=== PATIENT | male | born 1950 | race African-American/Black ===

== ENCOUNTER 2017-04-18 22:48 | Inpatient (IN) | payer MEDICAID, OTHER ==
[~2017-04-18] VITALS: Ht 177.8 cm; Wt 87.8 kg
[2017-04-19] VITALS (17 sets, daily range): BP systolic 93–131; BP diastolic 58–87
[2017-04-19] MEDS ORDERED: HEPARIN for IV BOLUS 10,000 UNIT/10 ML VIAL. IV PRN (01:15)
[2017-04-19] MEDS: HEPARIN 25,000UTS/500ML PREMIX 500 ML IV PRN ×2 (02:09→12:43)
[2017-04-19] MEDS ORDERED: TAMS0.4C97 PO (02:23)
[2017-04-19] MEDS ORDERED: ATOR40TA PO (02:23)
[2017-04-19] MEDS ORDERED: ACET325T9 PO (02:23)
[2017-04-19] MEDS ORDERED: ALBU2.5V5 NEB (02:23)
[2017-04-19] MEDS ORDERED: ALBUTEROL SULFATE 2.5 MG/3 ML NEBU. NEB PRN (02:30)
[2017-04-19] MEDS ORDERED: ACETAMINOPHEN 325 MG TABLET. PO PRN (02:30)
[2017-04-19] MEDS ORDERED: ONDANSETRON PF 4 MG/2 ML VIAL. IV PRN (03:15)
[2017-04-19 09:01] LABS: BASO % 0 % (0-3); EOS % 0 % (0-3); HEMATOCRIT 36.9 % (39.0-53.0); HEMOGLOBIN 12.1 g/dL (13.0-17.5); LYMPH # 1.3 x10^3/uL (1.0-4.8); LYMPH % 8 % (24-48); MEAN CORPUSCULAR HEMOGLOBIN 27 pg (25-35); MEAN CORPUSCULAR HGB CONC 33 g/dL (31-37); MEAN CORPUSCULAR VOLUME 82 fL (79-100); MONO % 7 % (0-9); NEUT % 85 % (31-73); PLATELET COUNT 138 x10^3/uL (140-400); RED CELL DISTRIBUTION WIDTH 14.5 % (11.5-14.5); WHITE BLOOD COUNT 16.2 x10^3/uL (4.0-11.0)
[2017-04-19 09:43] LABS: ANISOCYTOSIS SLIGHT; PLT ESTIMATE ADEQUATE (ADEQUATE); POLYCHROMASIA SLIGHT
[2017-04-19 09:44] LABS: POIKILOCYTOSIS SLIGHT
[2017-04-19] MEDS ORDERED: FUROSEMIDE 40 MG/4 ML VIAL. IVP ONE ×2 (10:00→15:45)
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
--- NOTE | 2017-04-19 10:16 | PDOC1 ---
History and Physical Date of Admission Date of Admission DATE: 04/19/17 TIME: 10:05 Identification/Chief Complaint Chief Complaint SOA Problems: Source Source: Caregiver, Chart review, Patient History of Present Illness History of Present Illness 66 y.o AA male, otherwise previously healthy went to [place] yesterday bec of acute SOA 1-2 weeks, Claims usually can walk 2-3 miles, no probs, now short distances and gets SOA, NO real CP, Also major issues with difficulty initiating a void, seen OIL TANK CAR CLEANER as OP, started on FLomax 0.8. NO weight loss, but admits to weight gain actually. NO hx Prostate CA Only 100cc overnight, still minimal UO. CReat and K ok. HAd difficulty inserting parker in [place], then some blood clots after, Pt does not want to go home with parker CR scan done at [facility], moderate pancreatic stranding, diverticulosis, chronic inflammation urinary bladder wall and bilateral small pleural effusion. SOme small incidental liver nodule too,. PLanned for cardiac cath EKG, some concerning changes, Trops 0.2 peak, then 0.1 BNP 8K Dw cards and Rn ABd big but not distended - remote etoh hx- stopped 20 yrs ago -CT abd as above (chart from [place] reviewed) Past Medical History Cardiovascular: Hyperlipidemia Pulmonary: Bronchitis Renal/: Benign prostatic enlarg. Past Surgical History Past Surgical History: No pertinent history Family History Family History: No Significant Social History Smoke: No ALCOHOL: other (quit 20 yrs ago) Drugs: None Current Medications Current Medications Current Medications Heparin Sodium/ Dextrose 500 ml @ 0 mls/hr CONT PRN IV SEE I/O RECORD Last administered on 04/19/17t 02:09; Start 04/19/17 at 01:15 Heparin Sodium (Porcine) (Heparin Sodium) 2,300 unit PRN Q6HRS PRN IV FOR UFH LEVEL LESS THAN 0.2; Start 04/19/17 at 01:15 Morphine Sulfate 2 mg PRN Q2HR PRN IV PAIN; Start 04/19/17 at 02:15 Acetaminophen (Tylenol) 650 mg PRN Q6HRS PRN PO ARTHRITIS; Start 04/19/17 at 02 :30; Stop 04/19/17 at 08:07; Status DC Albuterol Sulfate (Ventolin Neb Soln) 2.5 mg PRN QID PRN NEB ASTHMA; Start at 02:30 Atorvastatin Calcium (Lipitor) 40 mg QHS PO ; Start 04/19/17 at 21:00 Tamsulosin HCl (Flomax) 0.8 mg DAILY PO ; Start 04/19/17 at 09:00 Ondansetron HCl (Zofran) 4 mg PRN Q6HRS PRN IV NAUSEA/VOMITING; Start 04/19/17 at 03:15 Acetaminophen (Tylenol) 500 mg PRN Q6HRS PRN PO MILD PAIN / TEMP; Start at 08:00 Furosemide (Lasix) 40 mg 1X ONCE IVP ; Start 04/19/17 at 10:00; Stop 04/19/17 at 10:01; Status UNV Active Scripts Active Reported Albuterol Sulfate Neb Soln (Albuterol Sulfate) 2.5 Mg/3 Ml Vial.neb 2.5 Mg NEB QID PRN Flomax (Tamsulosin Hcl) 0.4 Mg Cap.er.24h 2 Cap PO DAILY Lipitor (Atorvastatin Calcium) 40 Mg Tablet 1 Tab PO QHS Tylenol (Acetaminophen) 325 Mg Tablet 1-2 Tab PO Q6HRS PRN Allergies Allergies: Coded Allergies: aspirin (Verified Allergy, Mild, Nausea, 04/19/17) ROS General: No: Chills, Night Sweats, Fatigue, Malaise, Appetite, Other PSYCHOLOGICAL ROS: No: Anxiety, Behavioral Disorder, Concentration difficultie , Decreased libido, Depression, Disorientation, Hallucinations, Hostility, Irritablity, Memory difficulties, Mood Swings, Obsessive thoughts, Physical abuse, Sexual abuse, Sleep disturbances, Suicidal ideation, Other Eyes: No Blurry vision, No Decreased vision, No Double vision, No Dry eyes, No Excessive tearing, No Eye Pain, No Itchy Eyes, No Loss of vision, No Photophobia , No Scotomata, No Uses contacts, No Uses glasses, No Other HEENT: No: Heacaches, Visual Changes, Hearing change, Nasal congestion, Nasal discharge, Oral lesions, Sinus pain, Sore Throat, Epistaxis, Sneezing, Snoring, Tinnitus, Vertigo, Vocal changes, Other Hematological and Lymphatic: No: Bleeding Problems, Blood Clots, Blood Transfusions, Brusing, Night Sweats, Pallor, Swollen Lymph Nodes, Other ENDOCRINE: No: Breast Changes, Galactorrhea, Hair Pattern Changes, Hot Flashes , Malaise/lethargy, Mood Swings, Palpitations, Polydipsia/polyuria, Skin Changes , Temperature Intolerance, Unexpected Weight Changes, Other Breast: No New/Changing Breast Lumps, No Nipple changes, No Nipple discharge, No Other Respiratory: YES: Shortness of breath, SOB with excertion Cardiovascular: No Chest Pain, No Palpitations, No Orthopnea, No Paroxysmal Noc. Dyspnea, No Edema, No Lt Headedness, No Other Gastrointestinal: No Nausea, No Vomiting, No Abdominal Pain, No Diarrhea, No Constipation, No Melena, No Hematochezia, No Other Genitourinary: YES Retention Musculoskeletal: No Gait Disturbance, No Joint Pain, No Joint Stiffness, No Joint Swelling, No Muscle Pain, No Muscular Weakness, No Pain In:, No Swelling In:, No Other Neurological: No Behavorial Changes, No Bowel/Bladder ControlChng, No Confusion , No Dizziness, No Gait Disturbance, No Headaches, No Impaired Coord/balance, No Memory Loss, No Numbness/Tingling, No Seizures, No Speech Problems, No Tremors, No Visual Changes, No Weakness, No Other Skin: No Dry Skin, No Eczema, No Hair Changes, No Lumps, No Mole Changes, No Mottling, No Nail Changes, No Pruritus, No Rash, No Skin Lesion Changes, No Other, No Acne Physical Exam General: Alert, Oriented X3, Cooperative, No acute distress HEENT: Atraumatic, PERRLA Lungs: Normal air movement, Other (dec BS bases, no wheezes) Abdomen: Soft, Other (protruberant but no guarding and not distended) Male Genitals Exam: normal genitalia, normal prostate Rectal Exam: not examined, mass PELVIC: Nml ext genitalia Extremities: No clubbing, No cyanosis, No edema, Normal pulses, No tenderness/ swelling Skin: No rashes, No breakdown, No significant lesion Neuro: Normal gait, Normal speech, Strength at 5/5 X4 ext, Normal tone, Sensation intact, Cranial nerves 3-12 NL, Reflexes 2+ Psych/Mental Status: Mental status NL, Mood NL Vitals Vitals Vital Signs Date Time Temp Pulse Resp B/P (MAP) Pulse Ox O2 Delivery O2 Flow Rate FiO2 04/19/17 08:07 97 Nasal Cannula 2.0 04/19/17 07:44 98.6 95 18 100/74 (83) 98.6 Labs Labs Laboratory Tests Test 04/19/17 01:50 04/19/17 08:45 Heparin Anti-Xa Act, Unfractionated 0.75 IU/mL (0.30-0.70) 0.74 IU/mL (0.30-0.70) Magnesium Level 1.8 mg/dL (1.8-2.4) Troponin I Quantitative 0.215 ng/mL (0.000-0.055) 0.139 ng/mL (0.000-0.055) White Blood Count 16.2 x10^3/uL (4.0-11.0) Red Blood Count 4.50 x10^6/uL (4.30-5.70) Hemoglobin 12.1 g/dL (13.0-17.5) Hematocrit 36.9 % (39.0-53.0) Mean Corpuscular Volume 82 fL (79-100) Mean Corpuscular Hemoglobin 27 pg (25-35) Mean Corpuscular Hemoglobin Concent 33 g/dL (31-37) Red Cell Distribution Width 14.5 % (11.5-14.5) Platelet Count 138 x10^3/uL (140-400) Neutrophils (%) (Auto) 85 % (31-73) Lymphocytes (%) (Auto) 8 % (24-48) Monocytes (%) (Auto) 7 % (0-9) Eosinophils (%) (Auto) 0 % (0-3) Basophils (%) (Auto) 0 % (0-3) Neutrophils # (Auto) 13.7 x10^3uL (1.8-7.7) Lymphocytes # (Auto) 1.3 x10^3/uL (1.0-4.8) Monocytes # (Auto) 1.0 x10^3/uL (0.0-1.1) Eosinophils # (Auto) 0.0 x10^3/uL (0.0-0.7) Basophils # (Auto) 0.0 x10^3/uL (0.0-0.2) Segmented Neutrophils % 88 % (35-66) Lymphocytes % 9 % (24-48) Monocytes % 3 % (0-10) Platelet Estimate Adequate (ADEQUATE) Large Platelets Present Polychromasia Slight Poikilocytosis Slight Anisocytosis Slight RC-Odc-K-Type Natriuretic Peptide 8600 pg/mL (0-124) Triglycerides Level 55 mg/dL (0-150) Cholesterol Level 125 mg/dL (0-200) LDL Cholesterol, Calculated 72 mg/dL (0-100) VLDL Cholesterol, Calculated 11 mg/dL (0-40) Non-HDL Cholesterol Calculated 83 mg/dL (0-129) HDL Cholesterol 42 mg/dL (40-60) Cholesterol/HDL Ratio 3.0 Laboratory Tests Test 04/19/17 01:50 04/19/17 08:45 Heparin Anti-Xa Act, Unfractionated 0.75 IU/mL (0.30-0.70) 0.74 IU/mL (0.30-0.70) Magnesium Level 1.8 mg/dL (1.8-2.4) Troponin I Quantitative 0.215 ng/mL (0.000-0.055) 0.139 ng/mL (0.000-0.055) White Blood Count 16.2 x10^3/uL (4.0-11.0) Red Blood Count 4.50 x10^6/uL (4.30-5.70) Hemoglobin 12.1 g/dL (13.0-17.5) Hematocrit 36.9 % (39.0-53.0) Mean Corpuscular Volume 82 fL (79-100) Mean Corpuscular Hemoglobin 27 pg (25-35) Mean Corpuscular Hemoglobin Concent 33 g/dL (31-37) Red Cell Distribution Width 14.5 % (11.5-14.5) Platelet Count 138 x10^3/uL (140-400) Neutrophils (%) (Auto) 85 % (31-73) Lymphocytes (%) (Auto) 8 % (24-48) Monocytes (%) (Auto) 7 % (0-9) Eosinophils (%) (Auto) 0 % (0-3) Basophils (%) (Auto) 0 % (0-3) Neutrophils # (Auto) 13.7 x10^3uL (1.8-7.7) Lymphocytes # (Auto) 1.3 x10^3/uL (1.0-4.8) Monocytes # (Auto) 1.0 x10^3/uL (0.0-1.1) Eosinophils # (Auto) 0.0 x10^3/uL (0.0-0.7) Basophils # (Auto) 0.0 x10^3/uL (0.0-0.2) Segmented Neutrophils % 88 % (35-66) Lymphocytes % 9 % (24-48) Monocytes % 3 % (0-10) Platelet Estimate Adequate (ADEQUATE) Large Platelets Present Polychromasia Slight Poikilocytosis Slight Anisocytosis Slight LR-Ozo-Y-Type Natriuretic Peptide 8600 pg/mL (0-124) Triglycerides Level 55 mg/dL (0-150) Cholesterol Level 125 mg/dL (0-200) LDL Cholesterol, Calculated 72 mg/dL (0-100) VLDL Cholesterol, Calculated 11 mg/dL (0-40) Non-HDL Cholesterol Calculated 83 mg/dL (0-129) HDL Cholesterol 42 mg/dL (40-60) Cholesterol/HDL Ratio 3.0 VTE Prophylaxis Ordered VTE Prophylaxis Devices: Yes VTE Pharmacological Prophylaxi: Yes Assessment/Plan Assessment/Plan 1. Acute onset SOA with EKg changes and trop elevation 2. Bilateral trace pleural effusions 3. Dyslipidemia 4. Incidental subCM liver nodule 5. Remote etoh hx - quit 20 yrs 6. Urinary retention with BPH sxs PLAN: Admit CVC Planned for cardiac cath given EKG changes, Trops -0.2 and acute SOA NPO Bladder scan protocol Insert parker if needed LAsix 40 IV x 1 Wiill consider CXR interval munira AM - CXR reviewed from [place] Can check PSa Consult urology PT/OT TSh pending Dw pt, RN laura and Jamar OIL TANK CAR CLEANER - cards KRISTEL HUETRA MD Apr 19, 2017 10:16
[2017-04-19] MEDS ORDERED: IOHEXOL 300 MG/ML 100ML VIAL. ONE (10:56)
[2017-04-19] MEDS ORDERED: LIDOCAINE 1% Multi-Dose 20 ML VIAL. ONE (10:56)
[2017-04-19] MEDS ORDERED: HEPARIN for ARTERIAL LINE 1,500 ML ONE (10:56)
[2017-04-19] MEDS ORDERED: LIDOCAINE 2% 20 ML VIAL. ONE (10:58)
[2017-04-19] MEDS ORDERED: VERAPAMIL 5 MG/2 ML VIAL. ONE (11:01)
[2017-04-19] MEDS ORDERED: HEPARIN for IV BOLUS 10,000 UNIT/10 ML VIAL. ONE (11:01)
[2017-04-19] MEDS ORDERED: NITROGLYCERIN 200 MCG/2 ML SYRINGE FOR CATH/VASC LAB. ONE (11:01)
[2017-04-19] MEDS ORDERED: fentaNYL PF VIAL 100 MCG/2 ML VIAL ONE (11:02)
[2017-04-19] MEDS ORDERED: MIDAZOLAM HCL/PF 2 MG/2 ML VIAL. ONE (11:02)
[2017-04-19 11:09] LABS: CALCIUM 8.3 mg/dL (8.5-10.1); CREATININE 1.2 mg/dL (0.7-1.3); GFR 72.9
[2017-04-19] MEDS ORDERED: CONTRAST GIVEN MC PRN (11:45)
[2017-04-19] MEDS ORDERED: IOHEXOL 300 MG/ML 100ML VIAL. IART ONE (11:45)
[2017-04-19] MEDS ORDERED: NITROGLYCERIN 200 MCG/2 ML SYRINGE FOR CATH/VASC LAB. IART ONE (11:45)
[2017-04-19] MEDS ORDERED: VERAPAMIL 5 MG/2 ML VIAL. IART ONE (11:45)
[2017-04-19] MEDS ORDERED: fentaNYL PF VIAL 100 MCG/2 ML VIAL IV ONE (11:45)
[2017-04-19] MEDS ORDERED: LIDOCAINE 2% 20 ML VIAL. IJ ONE (11:45)
[2017-04-19] MEDS ORDERED: MIDAZOLAM HCL/PF 2 MG/2 ML VIAL. IV ONE (11:45)
[2017-04-19 12:11] LABS: BILIRUBIN,URINE NEGATIVE (NEG); GLUCOSE,URINE NEGATIVE (NEG); NITRITE,URINE NEGATIVE (NEG); PROTEIN,URINE 30 mg/dL (NEG-TRACE); UROBILINOGEN,URINE 0.2 mg/dL (0.2 mg/dL)
[2017-04-19 12:31] LABS: BACTERIA,URINE FEW /HPF (0-FEW); SQUAMOUS EPITHELIAL CELL,UR FEW /LPF
[2017-04-19] MEDS: TAMSULOSIN 0.4 MG CAP.ER.24H. PO SCH (12:41)
[2017-04-19] MEDS: MILRINONE 20MG/100ML PREMIX 100 ML IV PRN (13:02)
--- NOTE | 2017-04-19 13:42 | CARD ---
APPROVED REPORT Procedure(s) performed: Right transradial approach Left Heart Catheterization, Coronary angiography, Left ventriculography HISTORY The patient is a 66 year-old male with a history of : previous CHF, dyslipidemia. INDICATION The indication(s) include : non-STEMI , jugular vein distension, dyspnea. CASE TECHNIQUE During this case, Fluoroscopy and low osmolar contrast were used for imaging. PROCEDURE NARRATIVE The patient was brought electively to the cardiac catheterization lab. A timeout was performed confi rming the patient's name, date of , procedure, and site of procedure. All necessary personnel w ere wearing the appropriate protective equipment and radiation monitor devices. After explaining the risks and benefits of the procedure and alternatives, informed consent was obtained. (See nursing no jaclyn for medications administered). The right wrist was sterilely prepped and draped in the usual fas hion. The right wrist was infiltrated with 1 mL of 2% lidocaine for subcutaneous anesthesia. A 6 Fr ench Terumo glide sheath was inserted into the right radial artery without difficulty. Right and lef t coronary angiography was performed using a 6Fr TIG 4.0 catheter. Left ventricular end diastolic pr essure was obtained with a pigtail catheter and pullback was performed after left ventriculography. All catheter exchanges and advancements were performed over a guidewire. At case completion the righ t radial sheath was removed and a Terumo radial band was applied with 13 ml of air. The patient tole rated the procedure well and there were no immediate complications. HEMODYNAMICS: LVEDP 48 mm Hg No gradient on LV to aortic pullback. LEFT VENTRICULOGRAM: EF 15% Severe global hypokinesis. No mitral regurgitation. CORONARY ANGIOGRAPHY: LM is a large caliber vessel with a distal 70% stenosis. LAD is a large caliber vessel with a proximal subtotal occlusion. The distal vessel fills via a large epicardial collateral from the LCx and septal collaterals from the RPL/RPDA system. Ramus is a small to caliber vessel with mild diffuse irregularities. LCx is a moderate caliber non-dominant vessel with mild up to 30% disease. OM1 is a moderate to large caliber vessel with mild irregularities of up to 30%. RCA is a large caliber dominant vessel with mild proximal 30%, long diffuse mid to distal 50-70% sten osis. RPDA is a moderate caliber vessels with normal angiographic appearance. Conclusion 1. Severe LV dysfunction. EF 15%. 2. Three vessel coronary artery disease with LM involvement. 3. Severely elevated left ventricular filling pressure. LVEDP 48 mm Hg. Recommendations Admit to ICU. Start Milrinone, Lasix 40mg IVP now. Start Hep gtt. CABG consultation. If felt to be a poor candidate due to severe LV dysfunction, then will plan for PCI on sunday after o ptimization of LV pressures/volume.
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
[2017-04-19 16:05] LABS: HEMATOCRIT 36.4 % (39.0-53.0); HEMOGLOBIN 11.5 g/dL (13.0-17.5); RED BLOOD COUNT 4.34 x10^6/uL (4.30-5.70); RED CELL DISTRIBUTION WIDTH 14.8 % (11.5-14.5); WHITE BLOOD COUNT 13.5 x10^3/uL (4.0-11.0)
[2017-04-19] MEDS: MORPHINE SULFATE 2 MG/ML DISP.SYRIN. IV PRN (16:14)
[2017-04-19] MEDS: ATORVASTATIN CALCIUM 40 MG TABLET. PO SCH (21:11)
[2017-04-20] VITALS (20 sets, daily range): BP systolic 80–128; BP diastolic 52–86
--- NOTE | 2017-04-20 08:12 | CARD ---
APPROVED REPORT EXAM: Two-dimensional and M-mode echocardiogram with Doppler and color Doppler. Other Information Quality : GoodHR: 93bpm Rhythm : Arrhythmia INDICATION Cardiomyopathy 2D DIMENSIONS RVDd3.1 (2.9-3.5cm)Left Atrium(2D)4.1 (1.6-4.0cm) IVSd1.0 (0.7-1.1cm)Aortic Root(2D)2.8 (2.0-3.7cm) LVDd6.8 (3.9-5.9cm)LVOT Diameter2.3 (1.8-2.4cm) PWd1.0 (0.7-1.1cm)LVDs6.2 (2.5-4.0cm) FS (%) 8.4 %SV42.9 ml LVEF(%)18.1 (>50%) Aortic Valve AoV Peak Jaquan.200.5cm/sAoV VTI31.3cm AO Peak GR.16.1mmHgLVOT Peak Jaquan.104.2cm/s AO Mean GR.8mmHgAVA (VMAX)2.10cm2 Mitral Valve MV E Yyonzqpm443.0cm/sMV E Peak Gr.10mmHg MV DECEL [id number] A Bgkzxfln68.7cm/s MV E Mean Gr.4mmHgE/A Ratio3.6 MV A [id number] Pulmonary Valve PV Peak Rknbbgbf02.5cm/s Tricuspid Valve TR P. [id number]/sTR Peak Gr.32mmHg LEFT VENTRICLE The Left Ventricle is moderately dilated. There is normal left ventricular wall thickness. Left ventr icle systolic function is severely impaired. The Ejection Fraction is 15-20%. There is severe global hypokinesis of the left ventricle. Transmitral Doppler flow pattern is Grade IV-fixed restrictive jason stolic dysfunction. No left ventricle thrombus noted on this study. RIGHT VENTRICLE The right ventricle is normal size. There is normal right ventricular wall thickness. Systolic functi on is moderately reduced. ATRIA The left atrium is moderately dilated. The right atrium size is normal. The interatrial septum is int act with no evidence for an atrial septal defect or patent foramen ovale as noted on 2-D or Doppler i maging. AORTIC VALVE The aortic valve is mildly thickened. The aortic valve is trileaflet. Doppler and Color Flow revealed no significant aortic regurgitation. There is no significant aortic valvular stenosis. MITRAL VALVE The mitral valve leaflets are mildly thickened. There is no evidence of mitral valve prolapse. There is no mitral valve stenosis. Doppler and Color Flow revealed mild mitral regurgitation. TRICUSPID VALVE Doppler and Color Flow revealed mild tricuspid regurgitation.The pulmonary artery systolic pressure i s estimated at 40 mmHg. There is mild pulmonary hypertension. PULMONIC VALVE Doppler and Color Flow revealed mild pulmonic valvular regurgitation. There is no pulmonic valvular s tenosis. GREAT VESSELS The aortic root is normal in size. The ascending aorta is normal in size. The IVC is normal in size a nd collapses <50% with inspiration. PERICARDIAL EFFUSION There is no evidence of significant pericardial effusion. Critical Notification Critical Value: No <Conclusion> Left ventricle systolic function is severely impaired. The Ejection Fraction is 15-20%. There is severe global hypokinesis of the left ventricle. Transmitral Doppler flow pattern is Grade IV-fixed restrictive diastolic dysfunction. Doppler and Color Flow revealed mild tricuspid regurgitation.The pulmonary artery systolic pressure i s estimated at 40 mmHg. There is mild pulmonary hypertension.
[2017-04-20] MEDS: TAMSULOSIN 0.4 MG CAP.ER.24H. PO SCH (08:27)
[2017-04-20] MEDS: MILRINONE 20MG/100ML PREMIX 100 ML IV PRN (08:28)
[2017-04-20 09:38] LABS: CALCIUM 8.1 mg/dL (8.5-10.1); GFR 89.9; POTASSIUM 3.6 mmol/L (3.5-5.1)
[2017-04-20 09:44] LABS: ALBUMIN 3.3 g/dL (3.4-5.0); ALBUMIN/GLOBULIN RATIO 1.1 (1.0-1.7); TOTAL BILIRUBIN 2.5 mg/dL (0.2-1.0); TOTAL PROTEIN 6.3 g/dL (6.4-8.2)
--- NOTE | 2017-04-20 09:48 | PDOC ---
PROGRESS NOTES Subjective Subjective Pt. with hematuria after parker Objective Objective Vital Signs Date Time Temp Pulse Resp B/P (MAP) Pulse Ox O2 Delivery O2 Flow Rate FiO2 04/20/17 08:00 Room Air 04/20/17 07:00 80 20 101/57 (72) 95 2.0 04/20/17 04:00 97.8 97.8 Intake and Output 04/20/17 07:00 Intake Total 1333.73 ml Output Total 1800 ml Balance -466.27 ml Intake Oral 1200 ml IV Total 133.73 ml Output Urine Total 1800 ml Physical Exam Physical Exam Currently no gross hematuria Plan Plan of Care Plan for flex cysto and parker placement when parker is required by cardiology and cardiothoracic surgery Comment Review of Relevant I have reviewed the following items raul (where applicable) has been applied. Labs Laboratory Tests Test 04/19/17 01:50 04/19/17 08:45 04/19/17 10:45 04/19/17 12:30 Heparin Anti-Xa Act, Unfractionated 0.75 IU/mL (0.30-0.70) 0.74 IU/mL (0.30-0.70) Magnesium Level 1.8 mg/dL (1.8-2.4) Troponin I Quantitative 0.215 ng/mL (0.000-0.055) 0.139 ng/mL (0.000-0.055) White Blood Count 16.2 x10^3/uL (4.0-11.0) Red Blood Count 4.50 x10^6/uL (4.30-5.70) Hemoglobin 12.1 g/dL (13.0-17.5) Hematocrit 36.9 % (39.0-53.0) Mean Corpuscular Volume 82 fL (79-100) Mean Corpuscular Hemoglobin 27 pg (25-35) Mean Corpuscular Hemoglobin Concent 33 g/dL (31-37) Red Cell Distribution Width 14.5 % (11.5-14.5) Platelet Count 138 x10^3/uL (140-400) Neutrophils (%) (Auto) 85 % (31-73) Lymphocytes (%) (Auto) 8 % (24-48) Monocytes (%) (Auto) 7 % (0-9) Eosinophils (%) (Auto) 0 % (0-3) Basophils (%) (Auto) 0 % (0-3) Neutrophils # (Auto) 13.7 x10^3uL (1.8-7.7) Lymphocytes # (Auto) 1.3 x10^3/uL (1.0-4.8) Monocytes # (Auto) 1.0 x10^3/uL (0.0-1.1) Eosinophils # (Auto) 0.0 x10^3/uL (0.0-0.7) Basophils # (Auto) 0.0 x10^3/uL (0.0-0.2) Segmented Neutrophils % 88 % (35-66) Lymphocytes % 9 % (24-48) Monocytes % 3 % (0-10) Platelet Estimate Adequate (ADEQUATE) Large Platelets Present Polychromasia Slight Poikilocytosis Slight Anisocytosis Slight Sodium Level 142 mmol/L (136-145) Potassium Level 4.0 mmol/L (3.5-5.1) Chloride Level 104 mmol/L (98-107) Carbon Dioxide Level 22 mmol/L (21-32) Anion Gap 16 (6-14) Blood Urea Nitrogen 35 mg/dL (8-26) Creatinine 1.2 mg/dL (0.7-1.3) Estimated GFR (Cockcroft-Gault) 72.9 Glucose Level 151 mg/dL (70-99) Calcium Level 8.3 mg/dL (8.5-10.1) YH-Ied-E-Type Natriuretic Peptide 8600 pg/mL (0-124) Triglycerides Level 55 mg/dL (0-150) Cholesterol Level 125 mg/dL (0-200) LDL Cholesterol, Calculated 72 mg/dL (0-100) VLDL Cholesterol, Calculated 11 mg/dL (0-40) Non-HDL Cholesterol Calculated 83 mg/dL (0-129) HDL Cholesterol 42 mg/dL (40-60) Cholesterol/HDL Ratio 3.0 Prostate Specific Antigen 0.68 ng/mL (0.00-4.00) Urine Collection Type Unknown Urine Color Yellow Urine Clarity Clear Urine pH 6.0 Urine Specific [place] >=1.030 Urine Protein 30 mg/dL (NEG-TRACE) Urine Glucose (UA) Negative mg/dL (NEG) Urine Ketones (Stick) Negative mg/dL (NEG) Urine Blood Moderate (NEG) Urine Nitrite Negative (NEG) Urine Bilirubin Negative (NEG) Urine Urobilinogen Dipstick 0.2 mg/dL (0.2 mg/dL) Urine Leukocyte Esterase Small (NEG) Urine RBC 11-20 /HPF (0-2) Urine WBC 5-10 /HPF (0-4) Urine Squamous Epithelial Cells Few /LPF Urine Bacteria Few /HPF (0-FEW) Urine Hyaline Casts Occasional /HPF Urine Mucus Mod /LPF Nasal Screen MRSA (PCR) Negative (Negative) Test 04/19/17 15:45 04/20/17 09:05 White Blood Count 13.5 x10^3/uL (4.0-11.0) Red Blood Count 4.34 x10^6/uL (4.30-5.70) Hemoglobin 11.5 g/dL (13.0-17.5) Hematocrit 36.4 % (39.0-53.0) Mean Corpuscular Volume 84 fL (79-100) Mean Corpuscular Hemoglobin 27 pg (25-35) Mean Corpuscular Hemoglobin Concent 32 g/dL (31-37) Red Cell Distribution Width 14.8 % (11.5-14.5) Platelet Count 140 x10^3/uL (140-400) Sodium Level 142 mmol/L (136-145) Potassium Level 3.6 mmol/L (3.5-5.1) Chloride Level 103 mmol/L (98-107) Carbon Dioxide Level 30 mmol/L (21-32) Anion Gap 9 (6-14) Blood Urea Nitrogen 34 mg/dL (8-26) Creatinine 1.0 mg/dL (0.7-1.3) Estimated GFR (Cockcroft-Gault) 89.9 BUN/Creatinine Ratio 34 (6-20) Glucose Level 103 mg/dL (70-99) Calcium Level 8.1 mg/dL (8.5-10.1) Total Bilirubin 2.5 mg/dL (0.2-1.0) Aspartate Amino Transf (AST/SGOT) 111 U/L (15-37) Alanine Aminotransferase (ALT/SGPT) 212 U/L (16-63) Alkaline Phosphatase 79 U/L (46-116) Total Protein 6.3 g/dL (6.4-8.2) Albumin 3.3 g/dL (3.4-5.0) Albumin/Globulin Ratio 1.1 (1.0-1.7) Laboratory Tests Test 04/19/17 10:45 04/19/17 12:30 04/19/17 15:45 04/20/17 09:05 Urine Collection Type Unknown Urine Color Yellow Urine Clarity Clear Urine pH 6.0 Urine Specific [place] >=1.030 Urine Protein 30 mg/dL (NEG-TRACE) Urine Glucose (UA) Negative mg/dL (NEG) Urine Ketones (Stick) Negative mg/dL (NEG) Urine Blood Moderate (NEG) Urine Nitrite Negative (NEG) Urine Bilirubin Negative (NEG) Urine Urobilinogen Dipstick 0.2 mg/dL (0.2 mg/dL) Urine Leukocyte Esterase Small (NEG) Urine RBC 11-20 /HPF (0-2) Urine WBC 5-10 /HPF (0-4) Urine Squamous Epithelial Cells Few /LPF Urine Bacteria Few /HPF (0-FEW) Urine Hyaline Casts Occasional /HPF Urine Mucus Mod /LPF Nasal Screen MRSA (PCR) Negative (Negative) White Blood Count 13.5 x10^3/uL (4.0-11.0) Red Blood Count 4.34 x10^6/uL (4.30-5.70) Hemoglobin 11.5 g/dL (13.0-17.5) Hematocrit 36.4 % (39.0-53.0) Mean Corpuscular Volume 84 fL (79-100) Mean Corpuscular Hemoglobin 27 pg (25-35) Mean Corpuscular Hemoglobin Concent 32 g/dL (31-37) Red Cell Distribution Width 14.8 % (11.5-14.5) Platelet Count 140 x10^3/uL (140-400) Sodium Level 142 mmol/L (136-145) Potassium Level 3.6 mmol/L (3.5-5.1) Chloride Level 103 mmol/L (98-107) Carbon Dioxide Level 30 mmol/L (21-32) Anion Gap 9 (6-14) Blood Urea Nitrogen 34 mg/dL (8-26) Creatinine 1.0 mg/dL (0.7-1.3) Estimated GFR (Cockcroft-Gault) 89.9 BUN/Creatinine Ratio 34 (6-20) Glucose Level 103 mg/dL (70-99) Calcium Level 8.1 mg/dL (8.5-10.1) Total Bilirubin 2.5 mg/dL (0.2-1.0) Aspartate Amino Transf (AST/SGOT) 111 U/L (15-37) Alanine Aminotransferase (ALT/SGPT) 212 U/L (16-63) Alkaline Phosphatase 79 U/L (46-116) Total Protein 6.3 g/dL (6.4-8.2) Albumin 3.3 g/dL (3.4-5.0) Albumin/Globulin Ratio 1.1 (1.0-1.7) Medications Current Medications Heparin Sodium/ Dextrose 500 ml @ 0 mls/hr CONT PRN IV SEE I/O RECORD Last administered on 04/19/17 12:43; Start 04/19/17 at 01:15 Heparin Sodium (Porcine) (Heparin Sodium) 2,300 unit PRN Q6HRS PRN IV FOR UFH LEVEL LESS THAN 0.2; Start 04/19/17 at 01:15 Morphine Sulfate 2 mg PRN Q2HR PRN IV PAIN Last administered on 04/19/17 16:14 ; Start 04/19/17 at 02:15 Acetaminophen (Tylenol) 650 mg PRN Q6HRS PRN PO ARTHRITIS; Start 04/19/17 at 02 :30; Stop 04/19/17 at 08:07; Status DC Albuterol Sulfate (Ventolin Neb Soln) 2.5 mg PRN QID PRN NEB ASTHMA; Start at 02:30 Atorvastatin Calcium (Lipitor) 40 mg QHS PO Last administered on 04/19/17 21: 11; Start 04/19/17 at 21:00 Tamsulosin HCl (Flomax) 0.8 mg DAILY PO Last administered on 04/20/17 08:27; Start 04/19/17 at 09:00 Ondansetron HCl (Zofran) 4 mg PRN Q6HRS PRN IV NAUSEA/VOMITING; Start 04/19/17 at 03:15 Acetaminophen (Tylenol) 500 mg PRN Q6HRS PRN PO MILD PAIN / TEMP; Start at 08:00 Furosemide (Lasix) 40 mg 1X ONCE IVP Last administered on 04/19/17 12:41; Start 04/19/17 at 10:00; Stop 04/19/17 at 10:05; Status DC Iohexol (Omnipaque 300 Mg/ml) 100 ml STK-MED ONCE .ROUTE ; Start 04/19/17 at 10: 56; Stop 04/19/17 at 10:57; Status DC Heparin Sodium/ Sodium Chloride 1,500 ml @ As Directed STK-MED ONCE .ROUTE ; Start 04/19/17 at 10:56; Stop 04/19/17 at 10:57; Status DC Lidocaine HCl 20 ml STK-MED ONCE .ROUTE ; Start 04/19/17 at 10:56; Stop at 10:57; Status DC Lidocaine HCl 20 ml STK-MED ONCE .ROUTE ; Start 04/19/17 at 10:58; Stop at 10:59; Status DC Nitroglycerin (Nitroglycerin) 200 mcg STK-MED ONCE .ROUTE ; Start 04/19/17 at 11 :01; Stop 04/19/17 at 11:02; Status DC Verapamil HCl (Verapamil) 5 mg STK-MED ONCE .ROUTE ; Start 04/19/17 at 11:01; Stop 04/19/17 at 11:02; Status DC Heparin Sodium (Porcine) (Heparin Sodium) 10,000 unit STK-MED ONCE .ROUTE ; Start 04/19/17 at 11:01; Stop 04/19/17 at 11:02; Status DC Fentanyl Citrate (Fentanyl 2ml Vial) 100 mcg STK-MED ONCE .ROUTE ; Start at 11:02; Stop 04/19/17 at 11:03; Status DC Midazolam HCl (Versed) 2 mg STK-MED ONCE .ROUTE ; Start 04/19/17 at 11:02; Stop 04/19/17 at 11:03; Status DC Nitroglycerin (Nitroglycerin) 200 mcg 1X ONCE IART Last administered on t 12:12; Start 04/19/17 at 11:45; Stop 04/19/17 at 11:46; Status DC Verapamil HCl (Verapamil) 2.5 mg 1X ONCE IART Last administered on 04/19/17t 12:12; Start 04/19/17 at 11:45; Stop 04/19/17 at 11:46; Status DC Heparin Sodium/ Sodium Chloride 1,000 unit 1X ONCE IART Last administered on t 12:05; Start 04/19/17 at 11:45; Stop 04/19/17 at 11:46; Status DC Heparin Sodium/ Sodium Chloride 1,000 unit 1X ONCE IART Last administered on 12:05; Start 04/19/17 at 11:45; Stop 04/19/17 at 11:46; Status DC Midazolam HCl (Versed) 2 mg 1X ONCE IV Last administered on 04/19/17 12:13; Start 04/19/17 at 11:45; Stop 04/19/17 at 11:46; Status DC Fentanyl Citrate (Fentanyl 2ml Vial) 100 mcg 1X ONCE IV Last administered on 12:13; Start 04/19/17 at 11:45; Stop 04/19/17 at 11:46; Status DC Iohexol (Omnipaque 300 Mg/ml) 100 ml 1X ONCE IART Last administered on 12:05; Start 04/19/17 at 11:45; Stop 04/19/17 at 11:46; Status DC Lidocaine HCl 20 ml 1X ONCE IJ Last administered on 04/19/17 12:05; Start at 11:45; Stop 04/19/17 at 11:46; Status DC Info (Do NOT chart on this entry -- for MONITORING) 1 each PRN DAILY PRN MC SEE COMMENTS; Start 04/19/17 at 11:45; Stop 04/21/17 at 11:44 Milrinone Lactate/ Dextrose 100 ml @ 0 mls/hr CONT PRN IV SEE I/O RECORD Last administered on 04/20/17 08:28; Start 04/19/17 at 12:00 Furosemide (Lasix) 60 mg 1X ONCE IVP Last administered on 04/19/17 16:10; Start 04/19/17 at 15:45; Stop 04/19/17 at 15:46; Status DC Active Scripts Active Reported Albuterol Sulfate Neb Soln (Albuterol Sulfate) 2.5 Mg/3 Ml Vial.neb 2.5 Mg NEB QID PRN Flomax (Tamsulosin Hcl) 0.4 Mg Cap.er.24h 2 Cap PO DAILY Lipitor (Atorvastatin Calcium) 40 Mg Tablet 1 Tab PO QHS Tylenol (Acetaminophen) 325 Mg Tablet 1-2 Tab PO Q6HRS PRN Vitals/I & O Vital Sign - Last 24 Hours 04/19/17 04/19/17 04/19/17 04/19/17 10:35 11:58 12:12 12:13 Temp 98.7 98.7 Pulse 87 85 86 Resp 31 B/P (MAP) 122/87 (99) 107/82 Pulse Ox 98 98 98 O2 Delivery Nasal Cannula Nasal Cannula Nasal Cannula O2 Flow Rate 2.0 2.0 2.0 04/19/17 04/19/17 04/19/17 04/19/17 12:20 12:30 12:56 13:00 Pulse 86 86 Resp 24 B/P (MAP) 101/73 (82) 120/82 (95) Pulse Ox 94 94 100 O2 Delivery Nasal Cannula Nasal Cannula Nasal Cannula Nasal Cannula O2 Flow Rate 2.0 2.0 2.0 2.0 04/19/17 04/19/17 04/19/17 04/19/17 14:00 15:00 16:00 16:00 Pulse 86 85 95 Resp B/P (MAP) 115/77 (90) 111/87 (95) 129/71 (90) Pulse Ox 99 98 95 O2 Delivery Nasal Cannula Nasal Cannula Nasal Cannula Nasal Cannula O2 Flow Rate 2.0 2.0 2.0 2.0 04/19/17 04/19/17 04/19/17 04/19/17 16:14 16:57 17:00 18:00 Pulse 98 90 Resp 36 31 19 21 B/P (MAP) 131/70 (90) 110/75 (87) Pulse Ox 99 98 99 97 O2 Delivery Nasal Cannula Nasal Cannula Nasal Cannula Nasal Cannula O2 Flow Rate 2.0 2.0 2.0 2.0 04/19/17 04/19/17 04/19/17 04/19/17 19:00 20:00 20:00 21:00 Temp 97.9 97.9 Pulse 86 82 80 Resp 23 23 25 B/P (MAP) 97/58 (71) 93/67 (76) 106/70 (82) Pulse Ox 100 100 100 O2 Delivery Nasal Cannula Nasal Cannula Nasal Cannula Nasal Cannula O2 Flow Rate 2.0 2.0 2.0 2.0 04/19/17 04/19/17 04/20/17 04/20/17 22:00 23:00 00:00 00:00 Temp 98.1 98.1 Pulse 86 81 81 Resp 12 13 11 B/P (MAP) 101/60 (74) 111/66 (81) 82/52 (62) Pulse Ox 100 100 100 O2 Delivery Nasal Cannula Nasal Cannula Nasal Cannula O2 Flow Rate 2.0 2.0 2.0 04/20/17 04/20/17 04/20/17 04/20/17 00:05 01:00 01:45 02:00 Pulse 76 93 80 Resp 11 12 B/P (MAP) 80/52 (61) 81/58 (66) 97/64 (75) Pulse Ox 96 96 O2 Delivery Nasal Cannula Nasal Cannula Nasal Cannula O2 Flow Rate 2.0 2.0 2.0 04/20/17 04/20/17 04/20/17 04/20/17 03:00 04:00 04:00 05:00 Temp 97.8 97.8 Pulse 80 97 79 Resp 11 28 19 B/P (MAP) 100/56 (71) 101/70 (80) 102/69 (80) Pulse Ox 97 94 100 O2 Delivery Nasal Cannula Nasal Cannula Nasal Cannula Nasal Cannula O2 Flow Rate 2.0 2.0 2.0 2.0 04/20/17 04/20/17 04/20/17 06:00 07:00 08:00 Pulse 84 80 Resp 19 20 B/P (MAP) 118/76 (90) 101/57 (72) Pulse Ox 99 95 O2 Delivery Nasal Cannula Nasal Cannula Room Air O2 Flow Rate 2.0 2.0 Intake and Output 04/19/17 04/19/17 04/20/17 15:00 23:00 07:00 Intake Total 200 ml 1080.04 ml 53.69 ml Output Total 200 ml 1100 ml 500 ml Balance 0 ml -19.96 ml -446.31 ml CHADWICK JOYNER MD Apr 20, 2017 09:48
--- NOTE | 2017-04-20 09:51 | PDOC ---
PROGRESS NOTES Chief Complaint Chief Complaint 1. 3 vessel CAD, high risk for CABG, planned for LVAD ( impella) s/p cardiac cath 04/19 2. Bilateral trace pleural effusions 3. Dyslipidemia 4. Incidental subCM liver nodule 5. Remote etoh hx - quit 20 yrs 6. Urinary retention with BPH sxs 7. 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 Vitals Vitals Vital Signs Date Time Temp Pulse Resp B/P (MAP) Pulse Ox O2 Delivery O2 Flow Rate FiO2 04/20/17 08:00 Room Air 04/20/17 07:00 80 20 101/57 (72) 95 2.0 04/20/17 04:00 97.8 97.8 Physical Exam General: Alert, Oriented X3, Cooperative Heart: Normal S1, Normal S2, No murmurs Abdomen: Normal bowel sounds, Other (distended) Extremities: No edema, Normal pulses Skin: No breakdown, No significant lesion Labs LABS Laboratory Tests Test 04/19/17 10:45 04/19/17 12:30 04/19/17 15:45 04/20/17 09:05 Urine Collection Type Unknown Urine Color Yellow Urine Clarity Clear Urine pH 6.0 Urine Specific [place] >=1.030 Urine Protein 30 mg/dL (NEG-TRACE) Urine Glucose (UA) Negative mg/dL (NEG) Urine Ketones (Stick) Negative mg/dL (NEG) Urine Blood Moderate (NEG) Urine Nitrite Negative (NEG) Urine Bilirubin Negative (NEG) Urine Urobilinogen Dipstick 0.2 mg/dL (0.2 mg/dL) Urine Leukocyte Esterase Small (NEG) Urine RBC 11-20 /HPF (0-2) Urine WBC 5-10 /HPF (0-4) Urine Squamous Epithelial Cells Few /LPF Urine Bacteria Few /HPF (0-FEW) Urine Hyaline Casts Occasional /HPF Urine Mucus Mod /LPF Nasal Screen MRSA (PCR) Negative (Negative) White Blood Count 13.5 x10^3/uL (4.0-11.0) Red Blood Count 4.34 x10^6/uL (4.30-5.70) Hemoglobin 11.5 g/dL (13.0-17.5) Hematocrit 36.4 % (39.0-53.0) Mean Corpuscular Volume 84 fL (79-100) Mean Corpuscular Hemoglobin 27 pg (25-35) Mean Corpuscular Hemoglobin Concent 32 g/dL (31-37) Red Cell Distribution Width 14.8 % (11.5-14.5) Platelet Count 140 x10^3/uL (140-400) Sodium Level 142 mmol/L (136-145) Potassium Level 3.6 mmol/L (3.5-5.1) Chloride Level 103 mmol/L (98-107) Carbon Dioxide Level 30 mmol/L (21-32) Anion Gap 9 (6-14) Blood Urea Nitrogen 34 mg/dL (8-26) Creatinine 1.0 mg/dL (0.7-1.3) Estimated GFR (Cockcroft-Gault) 89.9 BUN/Creatinine Ratio 34 (6-20) Glucose Level 103 mg/dL (70-99) Calcium Level 8.1 mg/dL (8.5-10.1) Total Bilirubin 2.5 mg/dL (0.2-1.0) Aspartate Amino Transf (AST/SGOT) 111 U/L (15-37) Alanine Aminotransferase (ALT/SGPT) 212 U/L (16-63) Alkaline Phosphatase 79 U/L (46-116) Total Protein 6.3 g/dL (6.4-8.2) Albumin 3.3 g/dL (3.4-5.0) Albumin/Globulin Ratio 1.1 (1.0-1.7) Review of Systems Review of Systems soa, no cp, abd pain, emesis etc Comment Review of Relevant I have reviewed the following items raul (where applicable) has been applied. Labs Laboratory Tests Test 04/19/17 01:50 04/19/17 08:45 04/19/17 10:45 04/19/17 12:30 Heparin Anti-Xa Act, Unfractionated 0.75 IU/mL (0.30-0.70) 0.74 IU/mL (0.30-0.70) Magnesium Level 1.8 mg/dL (1.8-2.4) Troponin I Quantitative 0.215 ng/mL (0.000-0.055) 0.139 ng/mL (0.000-0.055) White Blood Count 16.2 x10^3/uL (4.0-11.0) Red Blood Count 4.50 x10^6/uL (4.30-5.70) Hemoglobin 12.1 g/dL (13.0-17.5) Hematocrit 36.9 % (39.0-53.0) Mean Corpuscular Volume 82 fL (79-100) Mean Corpuscular Hemoglobin 27 pg (25-35) Mean Corpuscular Hemoglobin Concent 33 g/dL (31-37) Red Cell Distribution Width 14.5 % (11.5-14.5) Platelet Count 138 x10^3/uL (140-400) Neutrophils (%) (Auto) 85 % (31-73) Lymphocytes (%) (Auto) 8 % (24-48) Monocytes (%) (Auto) 7 % (0-9) Eosinophils (%) (Auto) 0 % (0-3) Basophils (%) (Auto) 0 % (0-3) Neutrophils # (Auto) 13.7 x10^3uL (1.8-7.7) Lymphocytes # (Auto) 1.3 x10^3/uL (1.0-4.8) Monocytes # (Auto) 1.0 x10^3/uL (0.0-1.1) Eosinophils # (Auto) 0.0 x10^3/uL (0.0-0.7) Basophils # (Auto) 0.0 x10^3/uL (0.0-0.2) Segmented Neutrophils % 88 % (35-66) Lymphocytes % 9 % (24-48) Monocytes % 3 % (0-10) Platelet Estimate Adequate (ADEQUATE) Large Platelets Present Polychromasia Slight Poikilocytosis Slight Anisocytosis Slight Sodium Level 142 mmol/L (136-145) Potassium Level 4.0 mmol/L (3.5-5.1) Chloride Level 104 mmol/L (98-107) Carbon Dioxide Level 22 mmol/L (21-32) Anion Gap 16 (6-14) Blood Urea Nitrogen 35 mg/dL (8-26) Creatinine 1.2 mg/dL (0.7-1.3) Estimated GFR (Cockcroft-Gault) 72.9 Glucose Level 151 mg/dL (70-99) Calcium Level 8.3 mg/dL (8.5-10.1) NY-Gmw-Y-Type Natriuretic Peptide 8600 pg/mL (0-124) Triglycerides Level 55 mg/dL (0-150) Cholesterol Level 125 mg/dL (0-200) LDL Cholesterol, Calculated 72 mg/dL (0-100) VLDL Cholesterol, Calculated 11 mg/dL (0-40) Non-HDL Cholesterol Calculated 83 mg/dL (0-129) HDL Cholesterol 42 mg/dL (40-60) Cholesterol/HDL Ratio 3.0 Prostate Specific Antigen 0.68 ng/mL (0.00-4.00) Urine Collection Type Unknown Urine Color Yellow Urine Clarity Clear Urine pH 6.0 Urine Specific [place] >=1.030 Urine Protein 30 mg/dL (NEG-TRACE) Urine Glucose (UA) Negative mg/dL (NEG) Urine Ketones (Stick) Negative mg/dL (NEG) Urine Blood Moderate (NEG) Urine Nitrite Negative (NEG) Urine Bilirubin Negative (NEG) Urine Urobilinogen Dipstick 0.2 mg/dL (0.2 mg/dL) Urine Leukocyte Esterase Small (NEG) Urine RBC 11-20 /HPF (0-2) Urine WBC 5-10 /HPF (0-4) Urine Squamous Epithelial Cells Few /LPF Urine Bacteria Few /HPF (0-FEW) Urine Hyaline Casts Occasional /HPF Urine Mucus Mod /LPF Nasal Screen MRSA (PCR) Negative (Negative) Test 04/19/17 15:45 04/20/17 09:05 White Blood Count 13.5 x10^3/uL (4.0-11.0) Red Blood Count 4.34 x10^6/uL (4.30-5.70) Hemoglobin 11.5 g/dL (13.0-17.5) Hematocrit 36.4 % (39.0-53.0) Mean Corpuscular Volume 84 fL (79-100) Mean Corpuscular Hemoglobin 27 pg (25-35) Mean Corpuscular Hemoglobin Concent 32 g/dL (31-37) Red Cell Distribution Width 14.8 % (11.5-14.5) Platelet Count 140 x10^3/uL (140-400) Sodium Level 142 mmol/L (136-145) Potassium Level 3.6 mmol/L (3.5-5.1) Chloride Level 103 mmol/L (98-107) Carbon Dioxide Level 30 mmol/L (21-32) Anion Gap 9 (6-14) Blood Urea Nitrogen 34 mg/dL (8-26) Creatinine 1.0 mg/dL (0.7-1.3) Estimated GFR (Cockcroft-Gault) 89.9 BUN/Creatinine Ratio 34 (6-20) Glucose Level 103 mg/dL (70-99) Calcium Level 8.1 mg/dL (8.5-10.1) Total Bilirubin 2.5 mg/dL (0.2-1.0) Aspartate Amino Transf (AST/SGOT) 111 U/L (15-37) Alanine Aminotransferase (ALT/SGPT) 212 U/L (16-63) Alkaline Phosphatase 79 U/L (46-116) Total Protein 6.3 g/dL (6.4-8.2) Albumin 3.3 g/dL (3.4-5.0) Albumin/Globulin Ratio 1.1 (1.0-1.7) Laboratory Tests Test 04/19/17 10:45 04/19/17 12:30 04/19/17 15:45 04/20/17 09:05 Urine Collection Type Unknown Urine Color Yellow Urine Clarity Clear Urine pH 6.0 Urine Specific [place] >=1.030 Urine Protein 30 mg/dL (NEG-TRACE) Urine Glucose (UA) Negative mg/dL (NEG) Urine Ketones (Stick) Negative mg/dL (NEG) Urine Blood Moderate (NEG) Urine Nitrite Negative (NEG) Urine Bilirubin Negative (NEG) Urine Urobilinogen Dipstick 0.2 mg/dL (0.2 mg/dL) Urine Leukocyte Esterase Small (NEG) Urine RBC 11-20 /HPF (0-2) Urine WBC 5-10 /HPF (0-4) Urine Squamous Epithelial Cells Few /LPF Urine Bacteria Few /HPF (0-FEW) Urine Hyaline Casts Occasional /HPF Urine Mucus Mod /LPF Nasal Screen MRSA (PCR) Negative (Negative) White Blood Count 13.5 x10^3/uL (4.0-11.0) Red Blood Count 4.34 x10^6/uL (4.30-5.70) Hemoglobin 11.5 g/dL (13.0-17.5) Hematocrit 36.4 % (39.0-53.0) Mean Corpuscular Volume 84 fL (79-100) Mean Corpuscular Hemoglobin 27 pg (25-35) Mean Corpuscular Hemoglobin Concent 32 g/dL (31-37) Red Cell Distribution Width 14.8 % (11.5-14.5) Platelet Count 140 x10^3/uL (140-400) Sodium Level 142 mmol/L (136-145) Potassium Level 3.6 mmol/L (3.5-5.1) Chloride Level 103 mmol/L (98-107) Carbon Dioxide Level 30 mmol/L (21-32) Anion Gap 9 (6-14) Blood Urea Nitrogen 34 mg/dL (8-26) Creatinine 1.0 mg/dL (0.7-1.3) Estimated GFR (Cockcroft-Gault) 89.9 BUN/Creatinine Ratio 34 (6-20) Glucose Level 103 mg/dL (70-99) Calcium Level 8.1 mg/dL (8.5-10.1) Total Bilirubin 2.5 mg/dL (0.2-1.0) Aspartate Amino Transf (AST/SGOT) 111 U/L (15-37) Alanine Aminotransferase (ALT/SGPT) 212 U/L (16-63) Alkaline Phosphatase 79 U/L (46-116) Total Protein 6.3 g/dL (6.4-8.2) Albumin 3.3 g/dL (3.4-5.0) Albumin/Globulin Ratio 1.1 (1.0-1.7) Medications Current Medications Heparin Sodium/ Dextrose 500 ml @ 0 mls/hr CONT PRN IV SEE I/O RECORD Last administered on 04/19/17 12:43; Start 04/19/17 at 01:15 Heparin Sodium (Porcine) (Heparin Sodium) 2,300 unit PRN Q6HRS PRN IV FOR UFH LEVEL LESS THAN 0.2; Start 04/19/17 at 01:15 Morphine Sulfate 2 mg PRN Q2HR PRN IV PAIN Last administered on 04/19/17 16:14 ; Start 04/19/17 at 02:15 Acetaminophen (Tylenol) 650 mg PRN Q6HRS PRN PO ARTHRITIS; Start 04/19/17 at 02 :30; Stop 04/19/17 at 08:07; Status DC Albuterol Sulfate (Ventolin Neb Soln) 2.5 mg PRN QID PRN NEB ASTHMA; Start at 02:30 Atorvastatin Calcium (Lipitor) 40 mg QHS PO Last administered on 04/19/17 21: 11; Start 04/19/17 at 21:00 Tamsulosin HCl (Flomax) 0.8 mg DAILY PO Last administered on 04/20/17 08:27; Start 04/19/17 at 09:00 Ondansetron HCl (Zofran) 4 mg PRN Q6HRS PRN IV NAUSEA/VOMITING; Start 04/19/17 at 03:15 Acetaminophen (Tylenol) 500 mg PRN Q6HRS PRN PO MILD PAIN / TEMP; Start at 08:00 Furosemide (Lasix) 40 mg 1X ONCE IVP Last administered on 04/19/17 12:41; Start 04/19/17 at 10:00; Stop 04/19/17 at 10:05; Status DC Iohexol (Omnipaque 300 Mg/ml) 100 ml STK-MED ONCE .ROUTE ; Start 04/19/17 at 10: 56; Stop 04/19/17 at 10:57; Status DC Heparin Sodium/ Sodium Chloride 1,500 ml @ As Directed STK-MED ONCE .ROUTE ; Start 04/19/17 at 10:56; Stop 04/19/17 at 10:57; Status DC Lidocaine HCl 20 ml STK-MED ONCE .ROUTE ; Start 04/19/17 at 10:56; Stop at 10:57; Status DC Lidocaine HCl 20 ml STK-MED ONCE .ROUTE ; Start 04/19/17 at 10:58; Stop at 10:59; Status DC Nitroglycerin (Nitroglycerin) 200 mcg STK-MED ONCE .ROUTE ; Start 04/19/17 at 11 :01; Stop 04/19/17 at 11:02; Status DC Verapamil HCl (Verapamil) 5 mg STK-MED ONCE .ROUTE ; Start 04/19/17 at 11:01; Stop 04/19/17 at 11:02; Status DC Heparin Sodium (Porcine) (Heparin Sodium) 10,000 unit STK-MED ONCE .ROUTE ; Start 04/19/17 at 11:01; Stop 04/19/17 at 11:02; Status DC Fentanyl Citrate (Fentanyl 2ml Vial) 100 mcg STK-MED ONCE .ROUTE ; Start at 11:02; Stop 04/19/17 at 11:03; Status DC Midazolam HCl (Versed) 2 mg STK-MED ONCE .ROUTE ; Start 04/19/17 at 11:02; Stop 04/19/17 at 11:03; Status DC Nitroglycerin (Nitroglycerin) 200 mcg 1X ONCE IART Last administered on 12:12; Start 04/19/17 at 11:45; Stop 04/19/17 at 11:46; Status DC Verapamil HCl (Verapamil) 2.5 mg 1X ONCE IART Last administered on 04/19/17 12:12; Start 04/19/17 at 11:45; Stop 04/19/17 at 11:46; Status DC Heparin Sodium/ Sodium Chloride 1,000 unit 1X ONCE IART Last administered on 12:05; Start 04/19/17 at 11:45; Stop 04/19/17 at 11:46; Status DC Heparin Sodium/ Sodium Chloride 1,000 unit 1X ONCE IART Last administered on 12:05; Start 04/19/17 at 11:45; Stop 04/19/17 at 11:46; Status DC Midazolam HCl (Versed) 2 mg 1X ONCE IV Last administered on 04/19/17 12:13; Start 04/19/17 at 11:45; Stop 04/19/17 at 11:46; Status DC Fentanyl Citrate (Fentanyl 2ml Vial) 100 mcg 1X ONCE IV Last administered on 12:13; Start 04/19/17 at 11:45; Stop 04/19/17 at 11:46; Status DC Iohexol (Omnipaque 300 Mg/ml) 100 ml 1X ONCE IART Last administered on 12:05; Start 04/19/17 at 11:45; Stop 04/19/17 at 11:46; Status DC Lidocaine HCl 20 ml 1X ONCE IJ Last administered on 04/19/17 12:05; Start at 11:45; Stop 04/19/17 at 11:46; Status DC Info (Do NOT chart on this entry -- for MONITORING) 1 each PRN DAILY PRN MC SEE COMMENTS; Start 04/19/17 at 11:45; Stop 04/21/17 at 11:44 Milrinone Lactate/ Dextrose 100 ml @ 0 mls/hr CONT PRN IV SEE I/O RECORD Last administered on 04/20/17 08:28; Start 04/19/17 at 12:00 Furosemide (Lasix) 60 mg 1X ONCE IVP Last administered on 04/19/17t 16:10; Start 04/19/17 at 15:45; Stop 04/19/17 at 15:46; Status DC Active Scripts Active Reported Albuterol Sulfate Neb Soln (Albuterol Sulfate) 2.5 Mg/3 Ml Vial.neb 2.5 Mg NEB QID PRN Flomax (Tamsulosin Hcl) 0.4 Mg Cap.er.24h 2 Cap PO DAILY Lipitor (Atorvastatin Calcium) 40 Mg Tablet 1 Tab PO QHS Tylenol (Acetaminophen) 325 Mg Tablet 1-2 Tab PO Q6HRS PRN Vitals/I & O Vital Sign - Last 24 Hours 04/19/17 04/19/17 04/19/17 04/19/17 10:35 11:58 12:12 12:13 Temp 98.7 98.7 Pulse 87 85 86 Resp 19 31 31 B/P (MAP) 122/87 (99) 107/82 Pulse Ox 98 98 98 O2 Delivery Nasal Cannula Nasal Cannula Nasal Cannula O2 Flow Rate 2.0 2.0 2.0 04/19/17 04/19/17 04/19/17 04/19/17 12:20 12:30 12:56 13:00 Pulse 86 86 Resp 24 22 24 B/P (MAP) 101/73 (82) 120/82 (95) Pulse Ox 94 94 100 O2 Delivery Nasal Cannula Nasal Cannula Nasal Cannula Nasal Cannula O2 Flow Rate 2.0 2.0 2.0 2.0 04/19/17 04/19/17 04/19/17 04/19/17 14:00 15:00 16:00 16:00 Pulse 86 85 95 Resp 24 22 B/P (MAP) 115/77 (90) 111/87 (95) 129/71 (90) Pulse Ox 99 98 95 O2 Delivery Nasal Cannula Nasal Cannula Nasal Cannula Nasal Cannula O2 Flow Rate 2.0 2.0 2.0 2.0 04/19/17 04/19/17 04/19/17 04/19/17 16:14 16:57 17:00 18:00 Pulse 98 90 Resp 36 31 19 21 B/P (MAP) 131/70 (90) 110/75 (87) Pulse Ox 99 98 99 97 O2 Delivery Nasal Cannula Nasal Cannula Nasal Cannula Nasal Cannula O2 Flow Rate 2.0 2.0 2.0 2.0 04/19/17 04/19/17 04/19/17 04/19/17 19:00 20:00 20:00 21:00 Temp 97.9 97.9 Pulse 86 82 80 Resp 23 23 25 B/P (MAP) 97/58 (71) 93/67 (76) 106/70 (82) Pulse Ox 100 100 100 O2 Delivery Nasal Cannula Nasal Cannula Nasal Cannula Nasal Cannula O2 Flow Rate 2.0 2.0 2.0 2.0 04/19/17 04/19/17 04/20/17 04/20/17 22:00 23:00 00:00 00:00 Temp 98.1 98.1 Pulse 86 81 81 Resp 12 13 11 B/P (MAP) 101/60 (74) 111/66 (81) 82/52 (62) Pulse Ox 100 100 100 O2 Delivery Nasal Cannula Nasal Cannula Nasal Cannula O2 Flow Rate 2.0 2.0 2.0 04/20/17 04/20/17 04/20/17 04/20/17 00:05 01:00 01:45 02:00 Pulse 76 93 80 Resp 11 12 B/P (MAP) 80/52 (61) 81/58 (66) 97/64 (75) Pulse Ox 96 96 O2 Delivery Nasal Cannula Nasal Cannula Nasal Cannula O2 Flow Rate 2.0 2.0 2.0 04/20/17 04/20/17 04/20/17 04/20/17 03:00 04:00 04:00 05:00 Temp 97.8 97.8 Pulse 80 97 79 Resp 11 28 19 B/P (MAP) 100/56 (71) 101/70 (80) 102/69 (80) Pulse Ox 97 94 100 O2 Delivery Nasal Cannula Nasal Cannula Nasal Cannula Nasal Cannula O2 Flow Rate 2.0 2.0 2.0 2.0 04/20/17 04/20/17 04/20/17 06:00 07:00 08:00 Pulse 84 80 Resp 19 20 B/P (MAP) 118/76 (90) 101/57 (72) Pulse Ox 99 95 O2 Delivery Nasal Cannula Nasal Cannula Room Air O2 Flow Rate 2.0 2.0 Intake and Output 04/19/17 04/19/17 04/20/17 15:00 23:00 07:00 Intake Total 200 ml 1080.04 ml 53.69 ml Output Total 200 ml 1100 ml 500 ml Balance 0 ml -19.96 ml -446.31 ml KRISTEL HUERTA MD Apr 20, 2017 09:51
--- NOTE | 2017-04-20 09:51 | PDOC ---
MARTI VERDUGO VIOLENT CRIMES DETECTIVE 04/20/17 0951: CARDIO Progress Notes Date and Time Date of Service 04/20/17 Time of Evaluation 0915 Subjective Subjective: No Chest Pain, No shortness of breath, No Palpitations Vitals Vitals Vital Signs Date Time Temp Pulse Resp B/P (MAP) Pulse Ox O2 Delivery O2 Flow Rate FiO2 04/20/17 08:00 Room Air 04/20/17 08:00 97.9 86 13 105/70 (82) 92 97.9 04/20/17 07:00 2.0 Weight Weight [ ] Input and Output Intake and Output Intake and Output 04/20/17 07:00 Intake Total 1333.73 ml Output Total 1800 ml Balance -466.27 ml Intake Oral 1200 ml IV Total 133.73 ml Output Urine Total 1800 ml Laboratory Labs Laboratory Tests Test 04/19/17 10:45 04/19/17 12:30 04/19/17 15:45 04/20/17 09:05 Urine Collection Type Unknown Urine Color Yellow Urine Clarity Clear Urine pH 6.0 Urine Specific [place] >=1.030 Urine Protein 30 mg/dL (NEG-TRACE) Urine Glucose (UA) Negative mg/dL (NEG) Urine Ketones (Stick) Negative mg/dL (NEG) Urine Blood Moderate (NEG) Urine Nitrite Negative (NEG) Urine Bilirubin Negative (NEG) Urine Urobilinogen Dipstick 0.2 mg/dL (0.2 mg/dL) Urine Leukocyte Esterase Small (NEG) Urine RBC 11-20 /HPF (0-2) Urine WBC 5-10 /HPF (0-4) Urine Squamous Epithelial Cells Few /LPF Urine Bacteria Few /HPF (0-FEW) Urine Hyaline Casts Occasional /HPF Urine Mucus Mod /LPF Nasal Screen MRSA (PCR) Negative (Negative) White Blood Count 13.5 x10^3/uL (4.0-11.0) Red Blood Count 4.34 x10^6/uL (4.30-5.70) Hemoglobin 11.5 g/dL (13.0-17.5) Hematocrit 36.4 % (39.0-53.0) Mean Corpuscular Volume 84 fL (79-100) Mean Corpuscular Hemoglobin 27 pg (25-35) Mean Corpuscular Hemoglobin Concent 32 g/dL (31-37) Red Cell Distribution Width 14.8 % (11.5-14.5) Platelet Count 140 x10^3/uL (140-400) Sodium Level 142 mmol/L (136-145) Potassium Level 3.6 mmol/L (3.5-5.1) Chloride Level 103 mmol/L (98-107) Carbon Dioxide Level 30 mmol/L (21-32) Anion Gap 9 (6-14) Blood Urea Nitrogen 34 mg/dL (8-26) Creatinine 1.0 mg/dL (0.7-1.3) Estimated GFR (Cockcroft-Gault) 89.9 BUN/Creatinine Ratio 34 (6-20) Glucose Level 103 mg/dL (70-99) Calcium Level 8.1 mg/dL (8.5-10.1) Total Bilirubin 2.5 mg/dL (0.2-1.0) Aspartate Amino Transf (AST/SGOT) 111 U/L (15-37) Alanine Aminotransferase (ALT/SGPT) 212 U/L (16-63) Alkaline Phosphatase 79 U/L (46-116) Total Protein 6.3 g/dL (6.4-8.2) Albumin 3.3 g/dL (3.4-5.0) Albumin/Globulin Ratio 1.1 (1.0-1.7) Physical Exam HEENT: Neck Supple W Full Motion Chest: Symmetric LUNGS: Other (diminished bases ) Heart: S1S2 Abdomen: Soft N/T, Other (distended) Extremities: 2+ Dorsalis Pedis, No Edema Neurology: alert, oriented, follow commands Assessment Assessment 1. NSTEMI 2. Acute combined systolic and diastolic heart failure 3. ICM; LVEF 15-20% 4. 3V CAD 5. Dyspnea on exertion 6. Pulmonary hypertension 7. Hyperlipidemia 8. Hematuria 9. Elevated LFT's Recommendations Continue diuresis. am labs Low-dose BB for optimization as BP allows No LEI with hypotension; add when consistently adequate. Continue to hold heparin gtt today secondary to gross hematuria. Consider resumption over the weekend CTS consulted; high risk for CABG. Will plan for Impella assisted PCI on Sunday if no surgical plans. Supportive care MATHEW CHIU MD 04/20/17 1608: CARDIO Progress Notes Plan Plan Pt. seen and examined. Agree with above GORE INSERTER Note. No acute events overnight. Discussed today r/b/a to high risk PCI. He wishes to proceed. Will plan for PCI on sunday after further optimization of hemodynamics. Will follow. MARTI VERDUGO APRN Apr 20, 2017 09:51 MATHEW CHIU MD Apr 20, 2017 16:08
[2017-04-20] MEDS ORDERED: FUROSEMIDE 100 MG/10 ML VIAL. IVP ONE (12:00)
[2017-04-20] MEDS: ASPIRIN ENTERIC COATED 81 MG TABLET.DR. PO SCH (13:01)
--- NOTE | 2017-04-20 14:56 | PDOC ---
Provider Note Provider Note Pt is clinically stable BNP note at 8600 echo reviewed EF 15-20% LV diameter at end-systole measure 6.2 cm The Pt has a severe cardiomyopathy with excessive dilation Rec; This degree of LV dilation is associated with sig morbidity/mortality with cardiac surgical procedures I believe that his operative risks outweigh potential benefits. He is not an operative candidate, and would consider percutaneous intervention or evaluation by a Heart failure center LIZA ALEMAN MD Apr 20, 2017 14:56
[2017-04-20] MEDS: CARVEDILOL 3.125 MG TABLET. PO SCH (18:09)
[2017-04-20] MEDS: ATORVASTATIN CALCIUM 40 MG TABLET. PO SCH (20:39)
--- NOTE | 2017-04-21 02:07 | CONS ---
DATE OF CONSULTATION: 04/20/2017 The patient's room, ICU bed 111. HISTORY OF PRESENT ILLNESS: The patient is a very pleasant 66-year-old -[place] male who was admitted for being short of breath and attempt was made to place a Asencio catheter at [facility] with difficulty and then patient had gross hematuria. The patient then had a Asencio catheter again placed and had gross hematuria. The Asencio catheter was removed and now the patient has no gross hematuria. The patient states he did have a history of urethral stricture disease in the past. He has never had any prostate operations. Does have a history of BPH. The patient's CT scan of the abdomen and pelvis on 04/18/2017 had shown just some mild diffuse bladder wall thickening and prostate gland was mildly enlarged and some stranding around the bladder, no hydronephrosis. The patient's creatinine is 1.0. Urine from 04/19/2017 did show 11-20 red cells, 5-10 white cells and a few bacteria. MEDICATIONS: The patient is on Flomax. ALLERGIES: THE PATIENT HAS ALLERGY TO ASPIRIN. The patient is on heparin drip. PHYSICAL EXAMINATION: ABDOMEN: Obese, soft, nontender. GENITOURINARY: Testes are descended bilaterally. Phallus is uncircumcised within normal limits. RECTAL: Good sphincter tone. Prostate smooth, nontender, without nodules, overall size 30 grams. ASSESSMENT AND PLAN: The patient is voiding currently with no gross hematuria ____. Once Cardiology or Cardiothoracic surgery requires a Asencio catheter, would recommend a flexible cystoscopy and Asencio catheter placement at that time and then proceed accordingly. I certainly appreciate being allowed to participate in this patient's care. CHADWICK JOYNER MD DR: ALIZE/porfirio JOB#: [id number] / [id number]
[2017-04-21 03:23] VITALS: BP 103/76
[2017-04-21 05:08] LABS: CALCIUM 8.2 mg/dL (8.5-10.1); CREATININE 0.9 mg/dL (0.7-1.3); GFR 101.5; MAGNESIUM 2.3 mg/dL (1.8-2.4); POTASSIUM 3.3 mmol/L (3.5-5.1)
[2017-04-21 07:30] VITALS: BP 100/70
[2017-04-21] MEDS ORDERED: POTASSIUM CITRATE 10 MEQ TABLET.ER PO ONE (08:45)
[2017-04-21] MEDS ORDERED: CLOPIDOGREL BISULFATE 75 MG TABLET PO ONE (08:45)
--- NOTE | 2017-04-21 08:48 | PDOC ---
CARDIOLOGY PROGRESS NOTE SUBJECTIVE: No acute events overnight. OBJECTIVE: Vital SIgns: Vital Signs Date Time Temp Pulse Resp B/P (MAP) Pulse Ox O2 Delivery O2 Flow Rate FiO2 04/21/17 07:30 98.2 78 18 100/70 (80) 96 Room Air 98.2 04/20/17 20:11 2.0 I & O Intake and Output 04/21/17 07:00 Intake Total 1900.8 ml Output Total 2025 ml Balance -124.2 ml Intake Oral 1810 ml IV Total 90.8 ml Output Urine Total 2025 ml Objective: Gen: A/O x 3. NAD CVS: RRR, no m/r/g. PULM: Minimal rales ABD: Soft, NT/ND +BS EXT: Trace edema Neurologic: No focal deficits. CURRENT MEDICATIONS: Current Medications Medications (Trade) Dose Ordered Sig/Gemini Start Time Stop Time Status Last Admin Dose Admin Acetaminophen (Tylenol) 500 mg PRN Q6HRS PRN 04/19/17 08:00 Albuterol Sulfate (Ventolin Neb Soln) 2.5 mg PRN QID PRN 04/19/17 02:30 Aspirin (Ecotrin) 81 mg [id number] 04/20/17 12:00 04/20/17 13:01 81 MG Atorvastatin Calcium (Lipitor) 40 mg QHS 04/19/17 21:00 04/20/17 20:39 40 MG Carvedilol (Coreg) 3.125 mg BIDWMEALS 04/20/17 17:00 04/20/17 18:09 3.125 MG Ceftriaxone Sodium 1 gm/ Sodium Chloride 50 ml @ 100 mls/hr Q24H 04/20/17 10:00 04/20/17 10:38 100 MLS/HR Fentanyl Citrate (Fentanyl 2ml Vial) 100 mcg 1X ONCE 04/19/17 11:45 04/19/17 11:46 DC 04/19/17 12:13 50 MCG Furosemide (Lasix) 60 mg 1X ONCE 04/20/17 12:00 04/20/17 12:01 DC 04/20/17 13:01 60 MG Heparin Sodium (Porcine) (Heparin Sodium) 10,000 unit STK-MED ONCE 04/19/17 11:01 04/19/17 11:02 DC Heparin Sodium/ Dextrose 500 ml @ 0 mls/hr CONT PRN 04/19/17 01:15 04/20/17 11:58 DC 04/19/17 12:43 21.1 MLS/HR Heparin Sodium/ Sodium Chloride 1,000 unit 1X ONCE 04/19/17 11:45 04/19/17 11:46 DC 04/19/17 12:05 1,000 UNIT Info (Do NOT chart on this entry -- for MONITORING) 1 each PRN DAILY PRN 04/19/17 11:45 04/21/17 11:44 Iohexol (Omnipaque 300 Mg/ml) 100 ml 1X ONCE 04/19/17 11:45 04/19/17 11:46 DC 04/19/17 12:05 64 ML Lidocaine HCl 20 ml 1X ONCE 04/19/17 11:45 04/19/17 11:46 DC 04/19/17 12:05 1 ML Midazolam HCl (Versed) 2 mg 1X ONCE 04/19/17 11:45 04/19/17 11:46 DC 04/19/17 12:13 1 MG Milrinone Lactate/ Dextrose 100 ml @ 0 mls/hr CONT PRN 04/19/17 12:00 04/20/17 08:28 3.4 MLS/HR Morphine Sulfate 2 mg PRN Q2HR PRN 04/19/17 02:15 04/19/17 16:14 2 MG Nitroglycerin (Nitroglycerin) 200 mcg 1X ONCE 04/19/17 11:45 04/19/17 11:46 DC 04/19/17 12:12 200 MCG Ondansetron HCl (Zofran) 4 mg PRN Q6HRS PRN 04/19/17 03:15 Tamsulosin HCl (Flomax) 0.8 mg DAILY 04/19/17 09:00 04/20/17 08:27 0.8 MG Verapamil HCl (Verapamil) 2.5 mg 1X ONCE 04/19/17 11:45 04/19/17 11:46 DC 04/19/17 12:12 2.5 MG DIAGNOSTIC TESTING: K 3.3. ASSESSMENT: 1. Severe ischemic CMP 2. Cardiogenic shock, resolved 3. Acute on chronic decompensated HF Problems: PLAN: 1. No plans for CABG 2. Will plan for Impella guided LM/LAD PCI. 3. Start Plavix today. 4. Continue oral lasix, coreg and hold on real-inh due to hypotension Will follow along. Plan for PCI on sunday. Discussed with patient extensively again today, understands r/b/a and wishes to proceed. MATHEW CHIU MD Apr 21, 2017 08:48
[2017-04-21] MEDS ORDERED: FUROSEMIDE 40 MG TABLET. PO ONE (09:00)
--- NOTE | 2017-04-21 09:18 | PDOC ---
PROGRESS NOTES Subjective Subjective Pt. feeling ok Objective Objective Vital Signs Date Time Temp Pulse Resp B/P (MAP) Pulse Ox O2 Delivery O2 Flow Rate FiO2 04/21/17 07:30 98.2 78 18 100/70 (80) 96 Room Air 98.2 04/20/17 20:11 2.0 Intake and Output 04/21/17 07:00 Intake Total 1900.8 ml Output Total 2025 ml Balance -124.2 ml Intake Oral 1810 ml IV Total 90.8 ml Output Urine Total 2025 ml Physical Exam Physical Exam voiding ok urine clear yellow Plan Plan of Care Plan for cystoscopy and parker placement prior to PCI on Sunday04/23/17 Comment Review of Relevant I have reviewed the following items raul (where applicable) has been applied. Labs Laboratory Tests Test 04/19/17 10:45 04/19/17 12:30 04/19/17 15:45 04/20/17 09:05 Urine Collection Type Unknown Urine Color Yellow Urine Clarity Clear Urine pH 6.0 Urine Specific [place] >=1.030 Urine Protein 30 mg/dL (NEG-TRACE) Urine Glucose (UA) Negative mg/dL (NEG) Urine Ketones (Stick) Negative mg/dL (NEG) Urine Blood Moderate (NEG) Urine Nitrite Negative (NEG) Urine Bilirubin Negative (NEG) Urine Urobilinogen Dipstick 0.2 mg/dL (0.2 mg/dL) Urine Leukocyte Esterase Small (NEG) Urine RBC 11-20 /HPF (0-2) Urine WBC 5-10 /HPF (0-4) Urine Squamous Epithelial Cells Few /LPF Urine Bacteria Few /HPF (0-FEW) Urine Hyaline Casts Occasional /HPF Urine Mucus Mod /LPF Nasal Screen MRSA (PCR) Negative (Negative) White Blood Count 13.5 x10^3/uL (4.0-11.0) Red Blood Count 4.34 x10^6/uL (4.30-5.70) Hemoglobin 11.5 g/dL (13.0-17.5) Hematocrit 36.4 % (39.0-53.0) Mean Corpuscular Volume 84 fL (79-100) Mean Corpuscular Hemoglobin 27 pg (25-35) Mean Corpuscular Hemoglobin Concent 32 g/dL (31-37) Red Cell Distribution Width 14.8 % (11.5-14.5) Platelet Count 140 x10^3/uL (140-400) Sodium Level 142 mmol/L (136-145) Potassium Level 3.6 mmol/L (3.5-5.1) Chloride Level 103 mmol/L (98-107) Carbon Dioxide Level 30 mmol/L (21-32) Anion Gap 9 (6-14) Blood Urea Nitrogen 34 mg/dL (8-26) Creatinine 1.0 mg/dL (0.7-1.3) Estimated GFR (Cockcroft-Gault) 89.9 BUN/Creatinine Ratio 34 (6-20) Glucose Level 103 mg/dL (70-99) Calcium Level 8.1 mg/dL (8.5-10.1) Total Bilirubin 2.5 mg/dL (0.2-1.0) Aspartate Amino Transf (AST/SGOT) 111 U/L (15-37) Alanine Aminotransferase (ALT/SGPT) 212 U/L (16-63) Alkaline Phosphatase 79 U/L (46-116) Total Protein 6.3 g/dL (6.4-8.2) Albumin 3.3 g/dL (3.4-5.0) Albumin/Globulin Ratio 1.1 (1.0-1.7) Thyroid Stimulating Hormone (TSH) 0.359 uIU/mL (0.358-3.74) Test 04/21/17 04:00 Sodium Level 140 mmol/L (136-145) Potassium Level 3.3 mmol/L (3.5-5.1) Chloride Level 103 mmol/L (98-107) Carbon Dioxide Level 32 mmol/L (21-32) Anion Gap 5 (6-14) Blood Urea Nitrogen 27 mg/dL (8-26) Creatinine 0.9 mg/dL (0.7-1.3) Estimated GFR (Cockcroft-Gault) 101.5 Glucose Level 117 mg/dL (70-99) Calcium Level 8.2 mg/dL (8.5-10.1) Magnesium Level 2.3 mg/dL (1.8-2.4) Laboratory Tests Test 04/21/17 04:00 Sodium Level 140 mmol/L (136-145) Potassium Level 3.3 mmol/L (3.5-5.1) Chloride Level 103 mmol/L (98-107) Carbon Dioxide Level 32 mmol/L (21-32) Anion Gap 5 (6-14) Blood Urea Nitrogen 27 mg/dL (8-26) Creatinine 0.9 mg/dL (0.7-1.3) Estimated GFR (Cockcroft-Gault) 101.5 Glucose Level 117 mg/dL (70-99) Calcium Level 8.2 mg/dL (8.5-10.1) Magnesium Level 2.3 mg/dL (1.8-2.4) Microbiology 04/19/17 Urine Culture - Preliminary, Resulted 04/19/17 Urine Culture Result 1 (KATHY) - Preliminary, Resulted Medications Current Medications Heparin Sodium/ Dextrose 500 ml @ 0 mls/hr CONT PRN IV SEE I/O RECORD Last administered on 04/19/17 12:43; Start 04/19/17 at 01:15; Stop 04/20/17 at 11:58 ; Status DC Heparin Sodium (Porcine) (Heparin Sodium) 2,300 unit PRN Q6HRS PRN IV FOR UFH LEVEL LESS THAN 0.2; Start 04/19/17 at 01:15; Stop 04/20/17 at 11:58; Status DC Morphine Sulfate 2 mg PRN Q2HR PRN IV PAIN Last administered on 04/19/17 16:14 ; Start 04/19/17 at 02:15 Acetaminophen (Tylenol) 650 mg PRN Q6HRS PRN PO ARTHRITIS; Start 04/19/17 at 02 :30; Stop 04/19/17 at 08:07; Status DC Albuterol Sulfate (Ventolin Neb Soln) 2.5 mg PRN QID PRN NEB ASTHMA; Start at 02:30 Atorvastatin Calcium (Lipitor) 40 mg QHS PO Last administered on 04/20/17 20: 39; Start 04/19/17 at 21:00 Tamsulosin HCl (Flomax) 0.8 mg DAILY PO Last administered on 04/20/17 08:27; Start 04/19/17 at 09:00 Ondansetron HCl (Zofran) 4 mg PRN Q6HRS PRN IV NAUSEA/VOMITING; Start 04/19/17 at 03:15 Acetaminophen (Tylenol) 500 mg PRN Q6HRS PRN PO MILD PAIN / TEMP; Start at 08:00 Furosemide (Lasix) 40 mg 1X ONCE IVP Last administered on 04/19/17 12:41; Start 04/19/17 at 10:00; Stop 04/19/17 at 10:05; Status DC Iohexol (Omnipaque 300 Mg/ml) 100 ml STK-MED ONCE .ROUTE ; Start 04/19/17 at 10: 56; Stop 04/19/17 at 10:57; Status DC Heparin Sodium/ Sodium Chloride 1,500 ml @ As Directed STK-MED ONCE .ROUTE ; Start 04/19/17 at 10:56; Stop 04/19/17 at 10:57; Status DC Lidocaine HCl 20 ml STK-MED ONCE .ROUTE ; Start 04/19/17 at 10:56; Stop at 10:57; Status DC Lidocaine HCl 20 ml STK-MED ONCE .ROUTE ; Start 04/19/17 at 10:58; Stop at 10:59; Status DC Nitroglycerin (Nitroglycerin) 200 mcg STK-MED ONCE .ROUTE ; Start 04/19/17 at 11 :01; Stop 04/19/17 at 11:02; Status DC Verapamil HCl (Verapamil) 5 mg STK-MED ONCE .ROUTE ; Start 04/19/17 at 11:01; Stop 04/19/17 at 11:02; Status DC Heparin Sodium (Porcine) (Heparin Sodium) 10,000 unit STK-MED ONCE .ROUTE ; Start 04/19/17 at 11:01; Stop 04/19/17 at 11:02; Status DC Fentanyl Citrate (Fentanyl 2ml Vial) 100 mcg STK-MED ONCE .ROUTE ; Start at 11:02; Stop 04/19/17 at 11:03; Status DC Midazolam HCl (Versed) 2 mg STK-MED ONCE .ROUTE ; Start 04/19/17 at 11:02; Stop 04/19/17 at 11:03; Status DC Nitroglycerin (Nitroglycerin) 200 mcg 1X ONCE IART Last administered on 12:12; Start 04/19/17 at 11:45; Stop 04/19/17 at 11:46; Status DC Verapamil HCl (Verapamil) 2.5 mg 1X ONCE IART Last administered on 04/19/17 12:12; Start 04/19/17 at 11:45; Stop 04/19/17 at 11:46; Status DC Heparin Sodium/ Sodium Chloride 1,000 unit 1X ONCE IART Last administered on 12:05; Start 04/19/17 at 11:45; Stop 04/19/17 at 11:46; Status DC Heparin Sodium/ Sodium Chloride 1,000 unit 1X ONCE IART Last administered on 12:05; Start 04/19/17 at 11:45; Stop 04/19/17 at 11:46; Status DC Midazolam HCl (Versed) 2 mg 1X ONCE IV Last administered on 04/19/17 12:13; Start 04/19/17 at 11:45; Stop 04/19/17 at 11:46; Status DC Fentanyl Citrate (Fentanyl 2ml Vial) 100 mcg 1X ONCE IV Last administered on 12:13; Start 04/19/17 at 11:45; Stop 04/19/17 at 11:46; Status DC Iohexol (Omnipaque 300 Mg/ml) 100 ml 1X ONCE IART Last administered on 12:05; Start 04/19/17 at 11:45; Stop 04/19/17 at 11:46; Status DC Lidocaine HCl 20 ml 1X ONCE IJ Last administered on 04/19/17 12:05; Start at 11:45; Stop 04/19/17 at 11:46; Status DC Info (Do NOT chart on this entry -- for MONITORING) 1 each PRN DAILY PRN MC SEE COMMENTS; Start 04/19/17 at 11:45; Stop 04/21/17 at 11:44 Milrinone Lactate/ Dextrose 100 ml @ 0 mls/hr CONT PRN IV SEE I/O RECORD Last administered on 04/20/17 08:28; Start 04/19/17 at 12:00 Furosemide (Lasix) 60 mg 1X ONCE IVP Last administered on 04/19/17 16:10; Start 04/19/17 at 15:45; Stop 04/19/17 at 15:46; Status DC Ceftriaxone Sodium 1 gm/ Sodium Chloride 50 ml @ 100 mls/hr Q24H IV Last administered on 04/20/17 10:38; Start 04/20/17 at 10:00 Furosemide (Lasix) 60 mg 1X ONCE IVP Last administered on 04/20/17 13:01; Start 04/20/17 at 12:00; Stop 04/20/17 at 12:01; Status DC Aspirin (Ecotrin) 81 mg DAILYWBKFT PO Last administered on 04/20/17 13:01; Start 04/20/17 at 12:00 Carvedilol (Coreg) 3.125 mg BIDWMEALS PO Last administered on 04/20/17 18:09; Start 04/20/17 at 17:00 Clopidogrel Bisulfate (Plavix) 300 mg 1X ONCE PO ; Start 04/21/17 at 08:45; Stop 04/21/17 at 08:46; Status DC Clopidogrel Bisulfate (Plavix) 75 mg DAILYWBKFT PO ; Start 04/22/17 at 08:00 Potassium Citrate (Urocit-K) 60 meq 1X ONCE PO ; Start 04/21/17 at 08:45; Stop 04/21/17 at 08:48; Status DC Furosemide (Lasix) 40 mg DAILY PO ; Start 04/22/17 at 09:00 Furosemide (Lasix) 40 mg 1X ONCE PO ; Start 04/21/17 at 09:00; Stop 04/21/17 at 09:01; Status DC Active Scripts Active Reported Albuterol Sulfate Neb Soln (Albuterol Sulfate) 2.5 Mg/3 Ml Vial.neb 2.5 Mg NEB QID PRN Flomax (Tamsulosin Hcl) 0.4 Mg Cap.er.24h 2 Cap PO DAILY Lipitor (Atorvastatin Calcium) 40 Mg Tablet 1 Tab PO QHS Tylenol (Acetaminophen) 325 Mg Tablet 1-2 Tab PO Q6HRS PRN Vitals/I & O Vital Sign - Last 24 Hours 04/20/17 04/20/17 04/20/17 04/20/17 10:00 11:00 12:00 12:00 Temp 98.5 98.5 Pulse 92 87 87 Resp 23 11 13 B/P (MAP) 122/73 (89) 114/63 (80) 106/80 (89) Pulse Ox 95 94 98 O2 Delivery Room Air Room Air Room Air Room Air 04/20/17 04/20/17 04/20/17 04/20/17 13:00 14:00 15:00 16:06 Pulse 105 91 104 93 Resp 20 18 19 19 B/P (MAP) 128/86 (100) 104/74 (84) 118/83 (95) 113/77 (89) Pulse Ox 97 96 95 O2 Delivery Room Air Room Air Room Air Room Air 04/20/17 04/20/17 04/20/17 04/20/17 18:05 18:09 19:26 20:11 Temp 98.1 98.1 Pulse 93 88 Resp 16 B/P (MAP) 113/77 107/76 (86) Pulse Ox 94 O2 Delivery Room Air Room Air Room Air O2 Flow Rate 2.0 04/20/17 04/21/17 04/21/17 22:54 03:23 07:30 Temp 97.8 97.5 98.2 97.8 97.5 98.2 Pulse 81 81 78 Resp 16 16 18 B/P (MAP) 102/75 (84) 103/76 (85) 100/70 (80) Pulse Ox 95 95 96 O2 Delivery Room Air Room Air Room Air Intake and Output 04/20/17 04/20/17 04/21/17 15:00 23:00 07:00 Intake Total 850 ml 360 ml 690.8 ml Output Total 1400 ml 300 ml 325 ml Balance -550 ml 60 ml 365.8 ml CHADWCIK JOYNER MD Apr 21, 2017 09:18
[2017-04-21] MEDS: CARVEDILOL 3.125 MG TABLET. PO SCH ×2 (09:25→17:57)
[2017-04-21] MEDS: TAMSULOSIN 0.4 MG CAP.ER.24H. PO SCH (09:25)
[2017-04-21] MEDS: ASPIRIN ENTERIC COATED 81 MG TABLET.DR. PO SCH (09:26)
[2017-04-21 11:00] VITALS: BP 101/68
[2017-04-21] MEDS: MILRINONE 20MG/100ML PREMIX 100 ML IV PRN (11:20)
--- NOTE | 2017-04-21 11:52 | PDOC ---
PROGRESS NOTES Chief Complaint Chief Complaint 1. 3 vessel CAD, high risk for CABG, planned for LVAD ( impella) s/p cardiac cath 04/19 2. Bilateral trace pleural effusions 3. Dyslipidemia 4. Incidental subCM liver nodule 5. Remote etoh hx - quit 20 yrs 6. Urinary retention with BPH sxs 7. Sever ischemic CM with low EF History of Present Illness History of Present Illness Tansfererd out of ICU [facility] urology - cysto Sunday prior to cardiac cath.angioplasty Watching tv, worked with PT Did well NO inc in [place] or CP [facility] and labs: K 3.3 mildly low PLAN: Cysto and angioplasty sunday Meantime, CPM over weekend Replace K PO Vitals Vitals Vital Signs Date Time Temp Pulse Resp B/P (MAP) Pulse Ox O2 Delivery O2 Flow Rate FiO2 04/21/17 11:00 98.9 88 22 101/68 (79) 99 Room Air 98.9 04/21/17 08:00 2.0 Physical Exam General: Alert, Oriented X3, Cooperative Heart: Normal S1, Normal S2, No murmurs Abdomen: Normal bowel sounds, Other (distended) Extremities: No edema, Normal pulses Skin: No breakdown, No significant lesion Labs LABS Laboratory Tests Test 04/21/17 04:00 Sodium Level 140 mmol/L (136-145) Potassium Level 3.3 mmol/L (3.5-5.1) Chloride Level 103 mmol/L (98-107) Carbon Dioxide Level 32 mmol/L (21-32) Anion Gap 5 (6-14) Blood Urea Nitrogen 27 mg/dL (8-26) Creatinine 0.9 mg/dL (0.7-1.3) Estimated GFR (Cockcroft-Gault) 101.5 Glucose Level 117 mg/dL (70-99) Calcium Level 8.2 mg/dL (8.5-10.1) Magnesium Level 2.3 mg/dL (1.8-2.4) Review of Systems Review of Systems denies 14 pt reviewed Comment Review of Relevant I have reviewed the following items raul (where applicable) has been applied. Labs Laboratory Tests Test 04/19/17 12:30 04/19/17 15:45 04/20/17 09:05 04/21/17 04:00 Nasal Screen MRSA (PCR) Negative (Negative) White Blood Count 13.5 x10^3/uL (4.0-11.0) Red Blood Count 4.34 x10^6/uL (4.30-5.70) Hemoglobin 11.5 g/dL (13.0-17.5) Hematocrit 36.4 % (39.0-53.0) Mean Corpuscular Volume 84 fL (79-100) Mean Corpuscular Hemoglobin 27 pg (25-35) Mean Corpuscular Hemoglobin Concent 32 g/dL (31-37) Red Cell Distribution Width 14.8 % (11.5-14.5) Platelet Count 140 x10^3/uL (140-400) Sodium Level 142 mmol/L (136-145) 140 mmol/L (136-145) Potassium Level 3.6 mmol/L (3.5-5.1) 3.3 mmol/L (3.5-5.1) Chloride Level 103 mmol/L (98-107) 103 mmol/L (98-107) Carbon Dioxide Level 30 mmol/L (21-32) 32 mmol/L (21-32) Anion Gap 9 (6-14) 5 (6-14) Blood Urea Nitrogen 34 mg/dL (8-26) 27 mg/dL (8-26) Creatinine 1.0 mg/dL (0.7-1.3) 0.9 mg/dL (0.7-1.3) Estimated GFR (Cockcroft-Gault) 89.9 101.5 BUN/Creatinine Ratio 34 (6-20) Glucose Level 103 mg/dL (70-99) 117 mg/dL (70-99) Calcium Level 8.1 mg/dL (8.5-10.1) 8.2 mg/dL (8.5-10.1) Total Bilirubin 2.5 mg/dL (0.2-1.0) Aspartate Amino Transf (AST/SGOT) 111 U/L (15-37) Alanine Aminotransferase (ALT/SGPT) 212 U/L (16-63) Alkaline Phosphatase 79 U/L (46-116) Total Protein 6.3 g/dL (6.4-8.2) Albumin 3.3 g/dL (3.4-5.0) Albumin/Globulin Ratio 1.1 (1.0-1.7) Thyroid Stimulating Hormone (TSH) 0.359 uIU/mL (0.358-3.74) Magnesium Level 2.3 mg/dL (1.8-2.4) Laboratory Tests Test 04/21/17 04:00 Sodium Level 140 mmol/L (136-145) Potassium Level 3.3 mmol/L (3.5-5.1) Chloride Level 103 mmol/L (98-107) Carbon Dioxide Level 32 mmol/L (21-32) Anion Gap 5 (6-14) Blood Urea Nitrogen 27 mg/dL (8-26) Creatinine 0.9 mg/dL (0.7-1.3) Estimated GFR (Cockcroft-Gault) 101.5 Glucose Level 117 mg/dL (70-99) Calcium Level 8.2 mg/dL (8.5-10.1) Magnesium Level 2.3 mg/dL (1.8-2.4) Microbiology 04/19/17 Urine Culture - Preliminary, Resulted 04/19/17 Urine Culture Result 1 (KATHY) - Preliminary, Resulted Medications Current Medications Heparin Sodium/ Dextrose 500 ml @ 0 mls/hr CONT PRN IV SEE I/O RECORD Last administered on 04/19/17 12:43; Start 04/19/17 at 01:15; Stop 04/20/17 at 11:58 ; Status DC Heparin Sodium (Porcine) (Heparin Sodium) 2,300 unit PRN Q6HRS PRN IV FOR UFH LEVEL LESS THAN 0.2; Start 04/19/17 at 01:15; Stop 04/20/17 at 11:58; Status DC Morphine Sulfate 2 mg PRN Q2HR PRN IV PAIN Last administered on 04/19/17 16:14 ; Start 04/19/17 at 02:15 Acetaminophen (Tylenol) 650 mg PRN Q6HRS PRN PO ARTHRITIS; Start 04/19/17 at 02 :30; Stop 04/19/17 at 08:07; Status DC Albuterol Sulfate (Ventolin Neb Soln) 2.5 mg PRN QID PRN NEB ASTHMA; Start at 02:30 Atorvastatin Calcium (Lipitor) 40 mg QHS PO Last administered on 04/20/17 20: 39; Start 04/19/17 at 21:00 Tamsulosin HCl (Flomax) 0.8 mg DAILY PO Last administered on 04/21/17 09:25; Start 04/19/17 at 09:00 Ondansetron HCl (Zofran) 4 mg PRN Q6HRS PRN IV NAUSEA/VOMITING; Start 04/19/17 at 03:15 Acetaminophen (Tylenol) 500 mg PRN Q6HRS PRN PO MILD PAIN / TEMP; Start at 08:00 Furosemide (Lasix) 40 mg 1X ONCE IVP Last administered on 04/19/17t 12:41; Start 04/19/17 at 10:00; Stop 04/19/17 at 10:05; Status DC Iohexol (Omnipaque 300 Mg/ml) 100 ml STK-MED ONCE .ROUTE ; Start 04/19/17 at 10: 56; Stop 04/19/17 at 10:57; Status DC Heparin Sodium/ Sodium Chloride 1,500 ml @ As Directed STK-MED ONCE .ROUTE ; Start 04/19/17 at 10:56; Stop 04/19/17 at 10:57; Status DC Lidocaine HCl 20 ml STK-MED ONCE .ROUTE ; Start 04/19/17 at 10:56; Stop at 10:57; Status DC Lidocaine HCl 20 ml STK-MED ONCE .ROUTE ; Start 04/19/17 at 10:58; Stop at 10:59; Status DC Nitroglycerin (Nitroglycerin) 200 mcg STK-MED ONCE .ROUTE ; Start 04/19/17 at 11 :01; Stop 04/19/17 at 11:02; Status DC Verapamil HCl (Verapamil) 5 mg STK-MED ONCE .ROUTE ; Start 04/19/17 at 11:01; Stop 04/19/17 at 11:02; Status DC Heparin Sodium (Porcine) (Heparin Sodium) 10,000 unit STK-MED ONCE .ROUTE ; Start 04/19/17 at 11:01; Stop 04/19/17 at 11:02; Status DC Fentanyl Citrate (Fentanyl 2ml Vial) 100 mcg STK-MED ONCE .ROUTE ; Start at 11:02; Stop 04/19/17 at 11:03; Status DC Midazolam HCl (Versed) 2 mg STK-MED ONCE .ROUTE ; Start 04/19/17 at 11:02; Stop 04/19/17 at 11:03; Status DC Nitroglycerin (Nitroglycerin) 200 mcg 1X ONCE IART Last administered on 12:12; Start 04/19/17 at 11:45; Stop 04/19/17 at 11:46; Status DC Verapamil HCl (Verapamil) 2.5 mg 1X ONCE IART Last administered on 04/19/17 12:12; Start 04/19/17 at 11:45; Stop 04/19/17 at 11:46; Status DC Heparin Sodium/ Sodium Chloride 1,000 unit 1X ONCE IART Last administered on 12:05; Start 04/19/17 at 11:45; Stop 04/19/17 at 11:46; Status DC Heparin Sodium/ Sodium Chloride 1,000 unit 1X ONCE IART Last administered on 12:05; Start 04/19/17 at 11:45; Stop 04/19/17 at 11:46; Status DC Midazolam HCl (Versed) 2 mg 1X ONCE IV Last administered on 04/19/17 12:13; Start 04/19/17 at 11:45; Stop 04/19/17 at 11:46; Status DC Fentanyl Citrate (Fentanyl 2ml Vial) 100 mcg 1X ONCE IV Last administered on 12:13; Start 04/19/17 at 11:45; Stop 04/19/17 at 11:46; Status DC Iohexol (Omnipaque 300 Mg/ml) 100 ml 1X ONCE IART Last administered on 12:05; Start 04/19/17 at 11:45; Stop 04/19/17 at 11:46; Status DC Lidocaine HCl 20 ml 1X ONCE IJ Last administered on 04/19/17 12:05; Start at 11:45; Stop 04/19/17 at 11:46; Status DC Info (Do NOT chart on this entry -- for MONITORING) 1 each PRN DAILY PRN MC SEE COMMENTS; Start 04/19/17 at 11:45; Stop 04/21/17 at 11:44; Status DC Milrinone Lactate/ Dextrose 100 ml @ 0 mls/hr CONT PRN IV SEE I/O RECORD Last administered on 04/21/17 11:20; Start 04/19/17 at 12:00 Furosemide (Lasix) 60 mg 1X ONCE IVP Last administered on 04/19/17 16:10; Start 04/19/17 at 15:45; Stop 04/19/17 at 15:46; Status DC Ceftriaxone Sodium 1 gm/ Sodium Chloride 50 ml @ 100 mls/hr Q24H IV Last administered on 04/21/17 09:27; Start 04/20/17 at 10:00 Furosemide (Lasix) 60 mg 1X ONCE IVP Last administered on 04/20/17 13:01; Start 04/20/17 at 12:00; Stop 04/20/17 at 12:01; Status DC Aspirin (Ecotrin) 81 mg DAILYWBKFT PO Last administered on 04/21/17 09:26; Start 04/20/17 at 12:00 Carvedilol (Coreg) 3.125 mg BIDWMEALS PO Last administered on 04/21/17 09:25; Start 04/20/17 at 17:00 Clopidogrel Bisulfate (Plavix) 300 mg 1X ONCE PO Last administered on 09:26; Start 04/21/17 at 08:45; Stop 04/21/17 at 08:46; Status DC Clopidogrel Bisulfate (Plavix) 75 mg DAILYWBKFT PO ; Start 04/22/17 at 08:00 Potassium Citrate (Urocit-K) 60 meq 1X ONCE PO Last administered on 04/21/17 09:26; Start 04/21/17 at 08:45; Stop 04/21/17 at 08:48; Status DC Furosemide (Lasix) 40 mg DAILY PO ; Start 04/22/17 at 09:00 Furosemide (Lasix) 40 mg 1X ONCE PO Last administered on 04/21/17 09:25; Start 04/21/17 at 09:00; Stop 04/21/17 at 09:01; Status DC Active Scripts Active Reported Albuterol Sulfate Neb Soln (Albuterol Sulfate) 2.5 Mg/3 Ml Vial.neb 2.5 Mg NEB QID PRN Flomax (Tamsulosin Hcl) 0.4 Mg Cap.er.24h 2 Cap PO DAILY Lipitor (Atorvastatin Calcium) 40 Mg Tablet 1 Tab PO QHS Tylenol (Acetaminophen) 325 Mg Tablet 1-2 Tab PO Q6HRS PRN Vitals/I & O Vital Sign - Last 24 Hours 6/2304/20/17 04/20/17 04/20/17 12:00 12:00 13:00 14:00 Temp 98.5 98.5 Pulse 87 105 91 Resp 13 20 18 B/P (MAP) 106/80 (89) 128/86 (100) 104/74 (84) Pulse Ox 98 97 96 O2 Delivery Room Air Room Air Room Air Room Air 04/20/17 04/20/17 04/20/17 04/20/17 15:00 16:06 18:05 18:09 Pulse 104 93 93 Resp 19 19 B/P (MAP) 118/83 (95) 113/77 (89) 113/77 Pulse Ox 95 O2 Delivery Room Air Room Air Room Air 04/20/17 04/20/17 04/20/17 04/21/17 19:26 20:11 22:54 03:23 Temp 98.1 97.8 97.5 98.1 97.8 97.5 Pulse 88 81 81 Resp 16 16 16 B/P (MAP) 107/76 (86) 102/75 (84) 103/76 (85) Pulse Ox 94 95 95 O2 Delivery Room Air Room Air Room Air Room Air O2 Flow Rate 2.0 04/21/17 04/21/17 04/21/17 04/21/17 07:30 08:00 09:25 11:00 Temp 98.2 98.9 98.2 98.9 Pulse 78 78 88 Resp 18 22 B/P (MAP) 100/70 (80) 100/70 101/68 (79) Pulse Ox 96 99 O2 Delivery Room Air Room Air Room Air O2 Flow Rate 2.0 Intake and Output 04/20/17 04/20/17 04/21/17 15:00 23:00 07:00 Intake Total 850 ml 360 ml 690.8 ml Output Total 1400 ml 300 ml 325 ml Balance -550 ml 60 ml 365.8 ml KRISTEL HUERTA MD Apr 21, 2017 11:52
[2017-04-21 15:00] VITALS: BP 100/73
[2017-04-21 19:12] VITALS: BP 107/79
[2017-04-21] MEDS: ATORVASTATIN CALCIUM 40 MG TABLET. PO SCH (20:43)
[2017-04-21 23:09] VITALS: BP 97/68
[2017-04-22 03:23] VITALS: BP 108/76
[2017-04-22 05:31] LABS: BASO % 0 % (0-3); EOS % 1 % (0-3); HEMATOCRIT 31.6 % (39.0-53.0); HEMOGLOBIN 10.2 g/dL (13.0-17.5); LYMPH # 1.5 x10^3/uL (1.0-4.8); LYMPH % 26 % (24-48); MEAN CORPUSCULAR HEMOGLOBIN 27 pg (25-35); MEAN CORPUSCULAR HGB CONC 32 g/dL (31-37); MEAN CORPUSCULAR VOLUME 83 fL (79-100); MONO % 9 % (0-9); NEUT % 64 % (31-73); PLATELET COUNT 115 x10^3/uL (140-400); RED CELL DISTRIBUTION WIDTH 14.6 % (11.5-14.5)
[2017-04-22 05:50] LABS: CALCIUM 8.4 mg/dL (8.5-10.1); CREATININE 0.8 mg/dL (0.7-1.3); GFR 116.3; POTASSIUM 3.6 mmol/L (3.5-5.1)
[2017-04-22 07:20] VITALS: BP 105/79
--- NOTE | 2017-04-22 07:51 | PDOC ---
Provider Note Provider Note Labs reviewed. Stable, ? dilutional Will repeat in a.m. Cysto first in PACU, then transfer to sanitation laborer for PCI around 9 a.m. MATHEW CHIU MD Apr 22, 2017 07:51
[2017-04-22] MEDS: TAMSULOSIN 0.4 MG CAP.ER.24H. PO SCH (08:38)
[2017-04-22] MEDS: ASPIRIN ENTERIC COATED 81 MG TABLET.DR. PO SCH (08:39)
[2017-04-22] MEDS: CARVEDILOL 3.125 MG TABLET. PO SCH ×2 (08:39→17:07)
[2017-04-22] MEDS: CLOPIDOGREL BISULFATE 75 MG TABLET PO SCH (08:39)
[2017-04-22] MEDS: FUROSEMIDE 40 MG TABLET. PO SCH (08:39)
[2017-04-22 11:00] VITALS: BP 117/82
[2017-04-22 11:46] LABS: ANISOCYTOSIS SLIGHT; PLT ESTIMATE DECREASED (ADEQUATE); POIKILOCYTOSIS SLIGHT
--- NOTE | 2017-04-22 12:05 | PDOC ---
PROGRESS NOTES Chief Complaint Chief Complaint 1. 3 vessel CAD, high risk for CABG, planned for LVAD ( impella) s/p cardiac cath 04/19 2. Bilateral trace pleural effusions 3. Dyslipidemia 4. Incidental subCM liver nodule 5. Remote etoh hx - quit 20 yrs 6. Urinary retention with BPH sxs 7. Sever ischemic CM with low EF History of Present Illness History of Present Illness no issues VS and labs ok [facility] u[facility] - cysto Sunday prior to cardiac cath.angioplasty Watching tv, worked with PT Did well NO inc in [place] or [facility] and labs: K 3.3 mildly low PLAN: Cysto and angioplasty sunday Meantime, CPM over weekend Replace K PO Vitals Vitals Vital Signs Date Time Temp Pulse Resp B/P (MAP) Pulse Ox O2 Delivery O2 Flow Rate FiO2 04/22/17 11:00 98.2 82 20 117/82 (94) 97 Room Air 98.2 04/22/17 08:00 2.5 Physical Exam General: Alert, Oriented X3, Cooperative Heart: Normal S1, Normal S2, No murmurs Abdomen: Normal bowel sounds, Other (distended) Extremities: No edema, Normal pulses Skin: No breakdown, No significant lesion Labs LABS Laboratory Tests Test 04/22/17 04:30 White Blood Count 6.0 x10^3/uL (4.0-11.0) Red Blood Count 3.80 x10^6/uL (4.30-5.70) Hemoglobin 10.2 g/dL (13.0-17.5) Hematocrit 31.6 % (39.0-53.0) Mean Corpuscular Volume 83 fL (79-100) Mean Corpuscular Hemoglobin 27 pg (25-35) Mean Corpuscular Hemoglobin Concent 32 g/dL (31-37) Red Cell Distribution Width 14.6 % (11.5-14.5) Platelet Count 115 x10^3/uL (140-400) Neutrophils (%) (Auto) 64 % (31-73) Lymphocytes (%) (Auto) 26 % (24-48) Monocytes (%) (Auto) 9 % (0-9) Eosinophils (%) (Auto) 1 % (0-3) Basophils (%) (Auto) 0 % (0-3) Neutrophils # (Auto) 3.8 x10^3uL (1.8-7.7) Lymphocytes # (Auto) 1.5 x10^3/uL (1.0-4.8) Monocytes # (Auto) 0.6 x10^3/uL (0.0-1.1) Eosinophils # (Auto) 0.1 x10^3/uL (0.0-0.7) Basophils # (Auto) 0.0 x10^3/uL (0.0-0.2) Platelet Estimate Decreased (ADEQUATE) Giant Platelets Few Poikilocytosis Slight Anisocytosis Slight Sodium Level 140 mmol/L (136-145) Potassium Level 3.6 mmol/L (3.5-5.1) Chloride Level 103 mmol/L (98-107) Carbon Dioxide Level 34 mmol/L (21-32) Anion Gap 3 (6-14) Blood Urea Nitrogen 20 mg/dL (8-26) Creatinine 0.8 mg/dL (0.7-1.3) Estimated GFR (Cockcroft-Gault) 116.3 Glucose Level 120 mg/dL (70-99) Calcium Level 8.4 mg/dL (8.5-10.1) Review of Systems Review of Systems neg 14 pt reviewed Comment Review of Relevant I have reviewed the following items raul (where applicable) has been applied. Labs Laboratory Tests Test 04/21/17 04:00 04/22/17 04:30 Sodium Level 140 mmol/L (136-145) 140 mmol/L (136-145) Potassium Level 3.3 mmol/L (3.5-5.1) 3.6 mmol/L (3.5-5.1) Chloride Level 103 mmol/L (98-107) 103 mmol/L (98-107) Carbon Dioxide Level 32 mmol/L (21-32) 34 mmol/L (21-32) Anion Gap 5 (6-14) 3 (6-14) Blood Urea Nitrogen 27 mg/dL (8-26) 20 mg/dL (8-26) Creatinine 0.9 mg/dL (0.7-1.3) 0.8 mg/dL (0.7-1.3) Estimated GFR (Cockcroft-Gault) 101.5 116.3 Glucose Level 117 mg/dL (70-99) 120 mg/dL (70-99) Calcium Level 8.2 mg/dL (8.5-10.1) 8.4 mg/dL (8.5-10.1) Magnesium Level 2.3 mg/dL (1.8-2.4) White Blood Count 6.0 x10^3/uL (4.0-11.0) Red Blood Count 3.80 x10^6/uL (4.30-5.70) Hemoglobin 10.2 g/dL (13.0-17.5) Hematocrit 31.6 % (39.0-53.0) Mean Corpuscular Volume 83 fL (79-100) Mean Corpuscular Hemoglobin 27 pg (25-35) Mean Corpuscular Hemoglobin Concent 32 g/dL (31-37) Red Cell Distribution Width 14.6 % (11.5-14.5) Platelet Count 115 x10^3/uL (140-400) Neutrophils (%) (Auto) 64 % (31-73) Lymphocytes (%) (Auto) 26 % (24-48) Monocytes (%) (Auto) 9 % (0-9) Eosinophils (%) (Auto) 1 % (0-3) Basophils (%) (Auto) 0 % (0-3) Neutrophils # (Auto) 3.8 x10^3uL (1.8-7.7) Lymphocytes # (Auto) 1.5 x10^3/uL (1.0-4.8) Monocytes # (Auto) 0.6 x10^3/uL (0.0-1.1) Eosinophils # (Auto) 0.1 x10^3/uL (0.0-0.7) Basophils # (Auto) 0.0 x10^3/uL (0.0-0.2) Platelet Estimate Decreased (ADEQUATE) Giant Platelets Few Poikilocytosis Slight Anisocytosis Slight Laboratory Tests Test 04/22/17 04:30 White Blood Count 6.0 x10^3/uL (4.0-11.0) Red Blood Count 3.80 x10^6/uL (4.30-5.70) Hemoglobin 10.2 g/dL (13.0-17.5) Hematocrit 31.6 % (39.0-53.0) Mean Corpuscular Volume 83 fL (79-100) Mean Corpuscular Hemoglobin 27 pg (25-35) Mean Corpuscular Hemoglobin Concent 32 g/dL (31-37) Red Cell Distribution Width 14.6 % (11.5-14.5) Platelet Count 115 x10^3/uL (140-400) Neutrophils (%) (Auto) 64 % (31-73) Lymphocytes (%) (Auto) 26 % (24-48) Monocytes (%) (Auto) 9 % (0-9) Eosinophils (%) (Auto) 1 % (0-3) Basophils (%) (Auto) 0 % (0-3) Neutrophils # (Auto) 3.8 x10^3uL (1.8-7.7) Lymphocytes # (Auto) 1.5 x10^3/uL (1.0-4.8) Monocytes # (Auto) 0.6 x10^3/uL (0.0-1.1) Eosinophils # (Auto) 0.1 x10^3/uL (0.0-0.7) Basophils # (Auto) 0.0 x10^3/uL (0.0-0.2) Platelet Estimate Decreased (ADEQUATE) Giant Platelets Few Poikilocytosis Slight Anisocytosis Slight Sodium Level 140 mmol/L (136-145) Potassium Level 3.6 mmol/L (3.5-5.1) Chloride Level 103 mmol/L (98-107) Carbon Dioxide Level 34 mmol/L (21-32) Anion Gap 3 (6-14) Blood Urea Nitrogen 20 mg/dL (8-26) Creatinine 0.8 mg/dL (0.7-1.3) Estimated GFR (Cockcroft-Gault) 116.3 Glucose Level 120 mg/dL (70-99) Calcium Level 8.4 mg/dL (8.5-10.1) Microbiology 04/19/17 Urine Culture - Final, Complete 04/19/17 Urine Culture Result 1 (KATHY) - Final, Complete 04/19/17 Antimicrobic Susceptibility - Final, Complete Medications Current Medications Heparin Sodium/ Dextrose 500 ml @ 0 mls/hr CONT PRN IV SEE I/O RECORD Last administered on 04/19/17t 12:43; Start 04/19/17 at 01:15; Stop 04/20/17 at 11:58 ; Status DC Heparin Sodium (Porcine) (Heparin Sodium) 2,300 unit PRN Q6HRS PRN IV FOR UFH LEVEL LESS THAN 0.2; Start 04/19/17 at 01:15; Stop 04/20/17 at 11:58; Status DC Morphine Sulfate 2 mg PRN Q2HR PRN IV PAIN Last administered on 04/19/17 16:14 ; Start 04/19/17 at 02:15 Acetaminophen (Tylenol) 650 mg PRN Q6HRS PRN PO ARTHRITIS; Start 04/19/17 at 02 :30; Stop 04/19/17 at 08:07; Status DC Albuterol Sulfate (Ventolin Neb Soln) 2.5 mg PRN QID PRN NEB ASTHMA; Start at 02:30 Atorvastatin Calcium (Lipitor) 40 mg QHS PO Last administered on 04/21/17 20: 43; Start 04/19/17 at 21:00 Tamsulosin HCl (Flomax) 0.8 mg DAILY PO Last administered on 04/22/17 08:38; Start 04/19/17 at 09:00 Ondansetron HCl (Zofran) 4 mg PRN Q6HRS PRN IV NAUSEA/VOMITING; Start 04/19/17 at 03:15 Acetaminophen (Tylenol) 500 mg PRN Q6HRS PRN PO MILD PAIN / TEMP; Start at 08:00 Furosemide (Lasix) 40 mg 1X ONCE IVP Last administered on 04/19/17 12:41; Start 04/19/17 at 10:00; Stop 04/19/17 at 10:05; Status DC Iohexol (Omnipaque 300 Mg/ml) 100 ml STK-MED ONCE .ROUTE ; Start 04/19/17 at 10: 56; Stop 04/19/17 at 10:57; Status DC Heparin Sodium/ Sodium Chloride 1,500 ml @ As Directed STK-MED ONCE .ROUTE ; Start 04/19/17 at 10:56; Stop 04/19/17 at 10:57; Status DC Lidocaine HCl 20 ml STK-MED ONCE .ROUTE ; Start 04/19/17 at 10:56; Stop at 10:57; Status DC Lidocaine HCl 20 ml STK-MED ONCE .ROUTE ; Start 04/19/17 at 10:58; Stop at 10:59; Status DC Nitroglycerin (Nitroglycerin) 200 mcg STK-MED ONCE .ROUTE ; Start 04/19/17 at 11 :01; Stop 04/19/17 at 11:02; Status DC Verapamil HCl (Verapamil) 5 mg STK-MED ONCE .ROUTE ; Start 04/19/17 at 11:01; Stop 04/19/17 at 11:02; Status DC Heparin Sodium (Porcine) (Heparin Sodium) 10,000 unit STK-MED ONCE .ROUTE ; Start 04/19/17 at 11:01; Stop 04/19/17 at 11:02; Status DC Fentanyl Citrate (Fentanyl 2ml Vial) 100 mcg STK-MED ONCE .ROUTE ; Start at 11:02; Stop 04/19/17 at 11:03; Status DC Midazolam HCl (Versed) 2 mg STK-MED ONCE .ROUTE ; Start 04/19/17 at 11:02; Stop 04/19/17 at 11:03; Status DC Nitroglycerin (Nitroglycerin) 200 mcg 1X ONCE IART Last administered on 12:12; Start 04/19/17 at 11:45; Stop 04/19/17 at 11:46; Status DC Verapamil HCl (Verapamil) 2.5 mg 1X ONCE IART Last administered on 04/19/17 12:12; Start 04/19/17 at 11:45; Stop 04/19/17 at 11:46; Status DC Heparin Sodium/ Sodium Chloride 1,000 unit 1X ONCE IART Last administered on 12:05; Start 04/19/17 at 11:45; Stop 04/19/17 at 11:46; Status DC Heparin Sodium/ Sodium Chloride 1,000 unit 1X ONCE IART Last administered on 12:05; Start 04/19/17 at 11:45; Stop 04/19/17 at 11:46; Status DC Midazolam HCl (Versed) 2 mg 1X ONCE IV Last administered on 04/19/17 12:13; Start 04/19/17 at 11:45; Stop 04/19/17 at 11:46; Status DC Fentanyl Citrate (Fentanyl 2ml Vial) 100 mcg 1X ONCE IV Last administered on 12:13; Start 04/19/17 at 11:45; Stop 04/19/17 at 11:46; Status DC Iohexol (Omnipaque 300 Mg/ml) 100 ml 1X ONCE IART Last administered on 12:05; Start 04/19/17 at 11:45; Stop 04/19/17 at 11:46; Status DC Lidocaine HCl 20 ml 1X ONCE IJ Last administered on 04/19/17 12:05; Start at 11:45; Stop 04/19/17 at 11:46; Status DC Info (Do NOT chart on this entry -- for MONITORING) 1 each PRN DAILY PRN MC SEE COMMENTS; Start 04/19/17 at 11:45; Stop 04/21/17 at 11:44; Status DC Milrinone Lactate/ Dextrose 100 ml @ 0 mls/hr CONT PRN IV SEE I/O RECORD Last administered on 04/21/17 11:20; Start 04/19/17 at 12:00 Furosemide (Lasix) 60 mg 1X ONCE IVP Last administered on 04/19/17 16:10; Start 04/19/17 at 15:45; Stop 04/19/17 at 15:46; Status DC Ceftriaxone Sodium 1 gm/ Sodium Chloride 50 ml @ 100 mls/hr Q24H IV Last administered on 04/22/17 08:40; Start 04/20/17 at 10:00 Furosemide (Lasix) 60 mg 1X ONCE IVP Last administered on 04/20/17 13:01; Start 04/20/17 at 12:00; Stop 04/20/17 at 12:01; Status DC Aspirin (Ecotrin) 81 mg DAILYWBKFT PO Last administered on 04/22/17 08:39; Start 04/20/17 at 12:00 Carvedilol (Coreg) 3.125 mg BIDWMEALS PO Last administered on 04/22/17 08:39; Start 04/20/17 at 17:00 Clopidogrel Bisulfate (Plavix) 300 mg 1X ONCE PO Last administered on 09:26; Start 04/21/17 at 08:45; Stop 04/21/17 at 08:46; Status DC Clopidogrel Bisulfate (Plavix) 75 mg DAILYWBKFT PO Last administered on 08:39; Start 04/22/17 at 08:00 Potassium Citrate (Urocit-K) 60 meq 1X ONCE PO Last administered on 04/21/17 09:26; Start 04/21/17 at 08:45; Stop 04/21/17 at 08:48; Status DC Furosemide (Lasix) 40 mg DAILY PO Last administered on 04/22/17 08:39; Start 04/22/17 at 09:00 Furosemide (Lasix) 40 mg 1X ONCE PO Last administered on 04/21/17 09:25; Start 04/21/17 at 09:00; Stop 04/21/17 at 09:01; Status DC Active Scripts Active Reported Albuterol Sulfate Neb Soln (Albuterol Sulfate) 2.5 Mg/3 Ml Vial.neb 2.5 Mg NEB QID PRN Flomax (Tamsulosin Hcl) 0.4 Mg Cap.er.24h 2 Cap PO DAILY Lipitor (Atorvastatin Calcium) 40 Mg Tablet 1 Tab PO QHS Tylenol (Acetaminophen) 325 Mg Tablet 1-2 Tab PO Q6HRS PRN Vitals/I & O Vital Sign - Last 24 Hours 04/21/17 04/21/17 04/21/17 04/21/17 15:00 17:57 19:12 19:42 Temp 97.8 97.7 97.8 97.7 Pulse 82 82 81 Resp 18 18 B/P (MAP) 100/73 (82) 100/73 107/79 (88) Pulse Ox 97 99 O2 Delivery Room Air Nasal Cannula Nasal Cannula O2 Flow Rate 2.5 2.5 04/21/17 04/22/17 04/22/17 04/22/17 23:09 03:23 07:20 08:00 Temp 97.5 97.4 98.6 97.5 97.4 98.6 Pulse 79 84 77 Resp 18 18 20 B/P (MAP) 97/68 (78) 108/76 (87) 105/79 (88) Pulse Ox 92 94 99 O2 Delivery Room Air Room Air Room Air Nasal Cannula O2 Flow Rate 2.5 04/22/17 04/22/17 08:39 11:00 Temp 98.2 98.2 Pulse 77 82 Resp 20 B/P (MAP) 105/79 117/82 (94) Pulse Ox 97 O2 Delivery Room Air Intake and Output 04/21/17 04/21/17 04/22/17 15:00 23:00 07:00 Intake Total 880 ml 642 ml Output Total 700 ml 450 ml Balance 880 ml -700 ml 192 ml KRISTEL HUERTA MD Apr 22, 2017 12:05
[2017-04-22 15:15] VITALS: BP 112/81
[2017-04-22] MEDS: MILRINONE 20MG/100ML PREMIX 100 ML IV PRN (17:07)
[2017-04-22 19:20] VITALS: BP 102/71
[2017-04-22] MEDS: ATORVASTATIN CALCIUM 40 MG TABLET. PO SCH (21:26)
[2017-04-22 23:15] VITALS: BP 103/83
[2017-04-23] VITALS (12 sets, daily range): BP systolic 93–129; BP diastolic 63–97
[2017-04-23 03:35] LABS: BASO % 1 % (0-3); EOS % 2 % (0-3); HEMATOCRIT 34.3 % (39.0-53.0); LYMPH # 1.5 x10^3/uL (1.0-4.8); LYMPH % 26 % (24-48); MEAN CORPUSCULAR HEMOGLOBIN 27 pg (25-35); MEAN CORPUSCULAR HGB CONC 32 g/dL (31-37); MEAN CORPUSCULAR VOLUME 84 fL (79-100); MONO % 10 % (0-9); NEUT % 62 % (31-73); PLATELET COUNT 131 x10^3/uL (140-400); RED BLOOD COUNT 4.08 x10^6/uL (4.30-5.70); RED CELL DISTRIBUTION WIDTH 14.7 % (11.5-14.5); WHITE BLOOD COUNT 5.8 x10^3/uL (4.0-11.0)
[2017-04-23 03:46] LABS: CALCIUM 8.7 mg/dL (8.5-10.1); CREATININE 0.8 mg/dL (0.7-1.3); GFR 116.3; POTASSIUM 3.7 mmol/L (3.5-5.1)
[2017-04-23] MEDS ORDERED: ONDANSETRON PF 4 MG/2 ML VIAL. ONE (06:45)
[2017-04-23] MEDS ORDERED: PROPOFOL 20 ML IV ONE (06:45)
[2017-04-23] MEDS ORDERED: LIDOCAINE 2% PF Vial for OR 5 ML VIAL. ONE (06:45)
[2017-04-23] MEDS ORDERED: DEXAMETHASONE SOD PHOS 20 MG/5 ML VIAL. ONE (06:45)
[2017-04-23] MEDS: CARVEDILOL 3.125 MG TABLET. PO SCH ×2 (07:05→17:00)
[2017-04-23] MEDS ORDERED: LIDOCAINE 2% JELLY 6ML IN APPLICATOR. ONE (07:32)
[2017-04-23] MEDS ORDERED: IV RINGERS,LACTATED 1000ML 1,000 ML IV ONE (07:45)
[2017-04-23] MEDS ORDERED: IV RINGERS,LACTATED 1000ML 1,000 ML IV SCH (07:58)
[2017-04-23] MEDS ORDERED: MORPHINE SULFATE 2 MG/ML DISP.SYRIN. IV PRN (08:00)
[2017-04-23] MEDS: ASPIRIN ENTERIC COATED 81 MG TABLET.DR. PO SCH (08:00)
[2017-04-23] MEDS: CLOPIDOGREL BISULFATE 75 MG TABLET PO SCH (08:00)
[2017-04-23] MEDS ORDERED: ONDANSETRON PF 4 MG/2 ML VIAL. IV PRN (08:00)
[2017-04-23] MEDS ORDERED: PROCHLORPERAZINE 10 MG/2 ML VIAL. IV PRN (08:00)
[2017-04-23] MEDS ORDERED: fentaNYL PF VIAL 100 MCG/2 ML VIAL IV PRN ×2 (08:00)
[2017-04-23] MEDS ORDERED: LIDOCAINE 1% 1 ML SYRINGE. ID PRN (08:00)
[2017-04-23] MEDS ORDERED: HYDROmorphone 2 MG/ML VIAL IV PRN (08:00)
[2017-04-23] MEDS ORDERED: MIDAZOLAM HCL/PF 2 MG/2 ML VIAL. ONE ×6 (08:19→13:26)
[2017-04-23] MEDS ORDERED: IOHEXOL 300 MG/ML 50 ML VIAL. ONE (08:36)
[2017-04-23] MEDS: TAMSULOSIN 0.4 MG CAP.ER.24H. PO SCH (09:00)
[2017-04-23] MEDS: FUROSEMIDE 40 MG TABLET. PO SCH (09:00)
--- NOTE | 2017-04-23 09:00 | PDOC4 ---
Operative Note Operative Note pre-op dx-hematuria post op dx-urethral stricture disease procedure-cystoscopy, urethral dilation, parker catheter placement surgeon-robbie motta-ZURDO Pt. to PACU in stable condition Plan-keep parker in place antibiotic for 1 week F/U with Dr. Arroyo or Dr. Hernandez at urology in 1-2 weeks CHADWICK JOYNER MD Apr 23, 2017 09:00
[2017-04-23] MEDS ORDERED: PHENYLEPHRINE in 0.9% NACL PF 1 MG/10 ML DISP.SYRIN. IV ONE (09:18)
[2017-04-23] MEDS ORDERED: LIDOCAINE 2% 20 ML VIAL. ONE (09:22)
[2017-04-23] MEDS ORDERED: IODIXANOL 320 MG/ML 100 ML VIAL. ONE ×2 (09:23→12:56)
[2017-04-23] MEDS ORDERED: fentaNYL PF VIAL 100 MCG/2 ML VIAL ONE ×2 (10:33→12:19)
[2017-04-23] MEDS ORDERED: HEPARIN for IV BOLUS 10,000 UNIT/10 ML VIAL. ONE (10:33)
[2017-04-23] MEDS ORDERED: FUROSEMIDE 100 MG/10 ML VIAL. ONE (10:49)
--- NOTE | 2017-04-23 10:53 | PDOC ---
PROGRESS NOTES Chief Complaint Chief Complaint 1. 3 vessel CAD, high risk for CABG, planned for LVAD ( impella) s/p cardiac cath 04/19 2. Bilateral trace pleural effusions 3. Dyslipidemia 4. Incidental subCM liver nodule 5. Remote etoh hx - quit 20 yrs 6. Urinary retention with BPH sxs 7. Sever ischemic CM with low EF History of Present Illness History of Present Illness Out having Cysto and cardiac cath Wet report on cystO: surinamese 12 inserted LAbs reviewed, VS reviewed ok PLAN: await from cath Bong [place]reaux Vitals Vitals Vital Signs Date Time Temp Pulse Resp B/P (MAP) Pulse Ox O2 Delivery O2 Flow Rate FiO2 04/23/17 10:01 85 18 105/76 100 Nasal Cannula 2 04/23/17 09:46 96.9 96.9 Physical Exam General: Alert, Oriented X3, Cooperative Heart: Normal S1, Normal S2, No murmurs Abdomen: Normal bowel sounds, Other (distended) Extremities: No edema, Normal pulses Skin: No breakdown, No significant lesion Labs LABS Laboratory Tests Test 04/23/17 03:15 White Blood Count 5.8 x10^3/uL (4.0-11.0) Red Blood Count 4.08 x10^6/uL (4.30-5.70) Hemoglobin 11.0 g/dL (13.0-17.5) Hematocrit 34.3 % (39.0-53.0) Mean Corpuscular Volume 84 fL (79-100) Mean Corpuscular Hemoglobin 27 pg (25-35) Mean Corpuscular Hemoglobin Concent 32 g/dL (31-37) Red Cell Distribution Width 14.7 % (11.5-14.5) Platelet Count 131 x10^3/uL (140-400) Neutrophils (%) (Auto) 62 % (31-73) Lymphocytes (%) (Auto) 26 % (24-48) Monocytes (%) (Auto) 10 % (0-9) Eosinophils (%) (Auto) 2 % (0-3) Basophils (%) (Auto) 1 % (0-3) Neutrophils # (Auto) 3.6 x10^3uL (1.8-7.7) Lymphocytes # (Auto) 1.5 x10^3/uL (1.0-4.8) Monocytes # (Auto) 0.6 x10^3/uL (0.0-1.1) Eosinophils # (Auto) 0.1 x10^3/uL (0.0-0.7) Basophils # (Auto) 0.0 x10^3/uL (0.0-0.2) Sodium Level 142 mmol/L (136-145) Potassium Level 3.7 mmol/L (3.5-5.1) Chloride Level 105 mmol/L (98-107) Carbon Dioxide Level 30 mmol/L (21-32) Anion Gap 7 (6-14) Blood Urea Nitrogen 14 mg/dL (8-26) Creatinine 0.8 mg/dL (0.7-1.3) Estimated GFR (Cockcroft-Gault) 116.3 Glucose Level 127 mg/dL (70-99) Calcium Level 8.7 mg/dL (8.5-10.1) Review of Systems Review of Systems cant obtain - out of room Comment Review of Relevant I have reviewed the following items raul (where applicable) has been applied. Labs Laboratory Tests Test 04/22/17 04:30 04/23/17 03:15 White Blood Count 6.0 x10^3/uL (4.0-11.0) 5.8 x10^3/uL (4.0-11.0) Red Blood Count 3.80 x10^6/uL (4.30-5.70) 4.08 x10^6/uL (4.30-5.70) Hemoglobin 10.2 g/dL (13.0-17.5) 11.0 g/dL (13.0-17.5) Hematocrit 31.6 % (39.0-53.0) 34.3 % (39.0-53.0) Mean Corpuscular Volume 83 fL (79-100) 84 fL (79-100) Mean Corpuscular Hemoglobin 27 pg (25-35) 27 pg (25-35) Mean Corpuscular Hemoglobin Concent 32 g/dL (31-37) 32 g/dL (31-37) Red Cell Distribution Width 14.6 % (11.5-14.5) 14.7 % (11.5-14.5) Platelet Count 115 x10^3/uL (140-400) 131 x10^3/uL (140-400) Neutrophils (%) (Auto) 64 % (31-73) 62 % (31-73) Lymphocytes (%) (Auto) 26 % (24-48) 26 % (24-48) Monocytes (%) (Auto) 9 % (0-9) 10 % (0-9) Eosinophils (%) (Auto) 1 % (0-3) 2 % (0-3) Basophils (%) (Auto) 0 % (0-3) 1 % (0-3) Neutrophils # (Auto) 3.8 x10^3uL (1.8-7.7) 3.6 x10^3uL (1.8-7.7) Lymphocytes # (Auto) 1.5 x10^3/uL (1.0-4.8) 1.5 x10^3/uL (1.0-4.8) Monocytes # (Auto) 0.6 x10^3/uL (0.0-1.1) 0.6 x10^3/uL (0.0-1.1) Eosinophils # (Auto) 0.1 x10^3/uL (0.0-0.7) 0.1 x10^3/uL (0.0-0.7) Basophils # (Auto) 0.0 x10^3/uL (0.0-0.2) 0.0 x10^3/uL (0.0-0.2) Platelet Estimate Decreased (ADEQUATE) Giant Platelets Few Poikilocytosis Slight Anisocytosis Slight Sodium Level 140 mmol/L (136-145) 142 mmol/L (136-145) Potassium Level 3.6 mmol/L (3.5-5.1) 3.7 mmol/L (3.5-5.1) Chloride Level 103 mmol/L (98-107) 105 mmol/L (98-107) Carbon Dioxide Level 34 mmol/L (21-32) 30 mmol/L (21-32) Anion Gap 3 (6-14) 7 (6-14) Blood Urea Nitrogen 20 mg/dL (8-26) 14 mg/dL (8-26) Creatinine 0.8 mg/dL (0.7-1.3) 0.8 mg/dL (0.7-1.3) Estimated GFR (Cockcroft-Gault) 116.3 116.3 Glucose Level 120 mg/dL (70-99) 127 mg/dL (70-99) Calcium Level 8.4 mg/dL (8.5-10.1) 8.7 mg/dL (8.5-10.1) Laboratory Tests Test 04/23/17 03:15 White Blood Count 5.8 x10^3/uL (4.0-11.0) Red Blood Count 4.08 x10^6/uL (4.30-5.70) Hemoglobin 11.0 g/dL (13.0-17.5) Hematocrit 34.3 % (39.0-53.0) Mean Corpuscular Volume 84 fL (79-100) Mean Corpuscular Hemoglobin 27 pg (25-35) Mean Corpuscular Hemoglobin Concent 32 g/dL (31-37) Red Cell Distribution Width 14.7 % (11.5-14.5) Platelet Count 131 x10^3/uL (140-400) Neutrophils (%) (Auto) 62 % (31-73) Lymphocytes (%) (Auto) 26 % (24-48) Monocytes (%) (Auto) 10 % (0-9) Eosinophils (%) (Auto) 2 % (0-3) Basophils (%) (Auto) 1 % (0-3) Neutrophils # (Auto) 3.6 x10^3uL (1.8-7.7) Lymphocytes # (Auto) 1.5 x10^3/uL (1.0-4.8) Monocytes # (Auto) 0.6 x10^3/uL (0.0-1.1) Eosinophils # (Auto) 0.1 x10^3/uL (0.0-0.7) Basophils # (Auto) 0.0 x10^3/uL (0.0-0.2) Sodium Level 142 mmol/L (136-145) Potassium Level 3.7 mmol/L (3.5-5.1) Chloride Level 105 mmol/L (98-107) Carbon Dioxide Level 30 mmol/L (21-32) Anion Gap 7 (6-14) Blood Urea Nitrogen 14 mg/dL (8-26) Creatinine 0.8 mg/dL (0.7-1.3) Estimated GFR (Cockcroft-Gault) 116.3 Glucose Level 127 mg/dL (70-99) Calcium Level 8.7 mg/dL (8.5-10.1) Microbiology 04/19/17 Urine Culture - Final, Complete 04/19/17 Urine Culture Result 1 (KATHY) - Final, Complete 04/19/17 Antimicrobic Susceptibility - Final, Complete Medications Current Medications Heparin Sodium/ Dextrose 500 ml @ 0 mls/hr CONT PRN IV SEE I/O RECORD Last administered on 04/19/17 12:43; Start 04/19/17 at 01:15; Stop 04/20/17 at 11:58 ; Status DC Heparin Sodium (Porcine) (Heparin Sodium) 2,300 unit PRN Q6HRS PRN IV FOR UFH LEVEL LESS THAN 0.2; Start 04/19/17 at 01:15; Stop 04/20/17 at 11:58; Status DC Morphine Sulfate 2 mg PRN Q2HR PRN IV PAIN Last administered on 04/19/17 16:14 ; Start 04/19/17 at 02:15 Acetaminophen (Tylenol) 650 mg PRN Q6HRS PRN PO ARTHRITIS; Start 04/19/17 at 02 :30; Stop 04/19/17 at 08:07; Status DC Albuterol Sulfate (Ventolin Neb Soln) 2.5 mg PRN QID PRN NEB ASTHMA; Start at 02:30 Atorvastatin Calcium (Lipitor) 40 mg QHS PO Last administered on 04/22/17 21: 26; Start 04/19/17 at 21:00 Tamsulosin HCl (Flomax) 0.8 mg DAILY PO Last administered on 04/22/17 08:38; Start 04/19/17 at 09:00 Ondansetron HCl (Zofran) 4 mg PRN Q6HRS PRN IV NAUSEA/VOMITING; Start 04/19/17 at 03:15 Acetaminophen (Tylenol) 500 mg PRN Q6HRS PRN PO MILD PAIN / TEMP; Start at 08:00 Furosemide (Lasix) 40 mg 1X ONCE IVP Last administered on 04/19/17 12:41; Start 04/19/17 at 10:00; Stop 04/19/17 at 10:05; Status DC Iohexol (Omnipaque 300 Mg/ml) 100 ml STK-MED ONCE .ROUTE ; Start 04/19/17 at 10: 56; Stop 04/19/17 at 10:57; Status DC Heparin Sodium/ Sodium Chloride 1,500 ml @ As Directed STK-MED ONCE .ROUTE ; Start 04/19/17 at 10:56; Stop 04/19/17 at 10:57; Status DC Lidocaine HCl 20 ml STK-MED ONCE .ROUTE ; Start 04/19/17 at 10:56; Stop at 10:57; Status DC Lidocaine HCl 20 ml STK-MED ONCE .ROUTE ; Start 04/19/17 at 10:58; Stop at 10:59; Status DC Nitroglycerin (Nitroglycerin) 200 mcg STK-MED ONCE .ROUTE ; Start 04/19/17 at 11 :01; Stop 04/19/17 at 11:02; Status DC Verapamil HCl (Verapamil) 5 mg STK-MED ONCE .ROUTE ; Start 04/19/17 at 11:01; Stop 04/19/17 at 11:02; Status DC Heparin Sodium (Porcine) (Heparin Sodium) 10,000 unit STK-MED ONCE .ROUTE ; Start 04/19/17 at 11:01; Stop 04/19/17 at 11:02; Status DC Fentanyl Citrate (Fentanyl 2ml Vial) 100 mcg STK-MED ONCE .ROUTE ; Start at 11:02; Stop 04/19/17 at 11:03; Status DC Midazolam HCl (Versed) 2 mg STK-MED ONCE .ROUTE ; Start 04/19/17 at 11:02; Stop 04/19/17 at 11:03; Status DC Nitroglycerin (Nitroglycerin) 200 mcg 1X ONCE IART Last administered on 12:12; Start 04/19/17 at 11:45; Stop 04/19/17 at 11:46; Status DC Verapamil HCl (Verapamil) 2.5 mg 1X ONCE IART Last administered on 04/19/17 12:12; Start 04/19/17 at 11:45; Stop 04/19/17 at 11:46; Status DC Heparin Sodium/ Sodium Chloride 1,000 unit 1X ONCE IART Last administered on t 12:05; Start 04/19/17 at 11:45; Stop 04/19/17 at 11:46; Status DC Heparin Sodium/ Sodium Chloride 1,000 unit 1X ONCE IART Last administered on 12:05; Start 04/19/17 at 11:45; Stop 04/19/17 at 11:46; Status DC Midazolam HCl (Versed) 2 mg 1X ONCE IV Last administered on 04/19/17 12:13; Start 04/19/17 at 11:45; Stop 04/19/17 at 11:46; Status DC Fentanyl Citrate (Fentanyl 2ml Vial) 100 mcg 1X ONCE IV Last administered on 12:13; Start 04/19/17 at 11:45; Stop 04/19/17 at 11:46; Status DC Iohexol (Omnipaque 300 Mg/ml) 100 ml 1X ONCE IART Last administered on 12:05; Start 04/19/17 at 11:45; Stop 04/19/17 at 11:46; Status DC Lidocaine HCl 20 ml 1X ONCE IJ Last administered on 04/19/17 12:05; Start at 11:45; Stop 04/19/17 at 11:46; Status DC Info (Do NOT chart on this entry -- for MONITORING) 1 each PRN DAILY PRN MC SEE COMMENTS; Start 04/19/17 at 11:45; Stop 04/21/17 at 11:44; Status DC Milrinone Lactate/ Dextrose 100 ml @ 0 mls/hr CONT PRN IV SEE I/O RECORD Last administered on 04/22/17 17:07; Start 04/19/17 at 12:00 Furosemide (Lasix) 60 mg 1X ONCE IVP Last administered on 04/19/17 16:10; Start 04/19/17 at 15:45; Stop 04/19/17 at 15:46; Status DC Ceftriaxone Sodium 1 gm/ Sodium Chloride 50 ml @ 100 mls/hr Q24H IV Last administered on 04/22/17 08:40; Start 04/20/17 at 10:00 Furosemide (Lasix) 60 mg 1X ONCE IVP Last administered on 04/20/17 13:01; Start 04/20/17 at 12:00; Stop 04/20/17 at 12:01; Status DC Aspirin (Ecotrin) 81 mg DAILYWBKFT PO Last administered on 04/22/17 08:39; Start 04/20/17 at 12:00 Carvedilol (Coreg) 3.125 mg BIDWMEALS PO Last administered on 04/23/17 07:05; Start 04/20/17 at 17:00 Clopidogrel Bisulfate (Plavix) 300 mg 1X ONCE PO Last administered on 09:26; Start 04/21/17 at 08:45; Stop 04/21/17 at 08:46; Status DC Clopidogrel Bisulfate (Plavix) 75 mg DAILYWBKFT PO Last administered on 08:39; Start 04/22/17 at 08:00 Potassium Citrate (Urocit-K) 60 meq 1X ONCE PO Last administered on 04/21/17 09:26; Start 04/21/17 at 08:45; Stop 04/21/17 at 08:48; Status DC Furosemide (Lasix) 40 mg DAILY PO Last administered on 04/22/17 08:39; Start 04/22/17 at 09:00 Furosemide (Lasix) 40 mg 1X ONCE PO Last administered on 04/21/17 09:25; Start 04/21/17 at 09:00; Stop 04/21/17 at 09:01; Status DC Propofol 20 ml @ As Directed STK-MED ONCE IV ; Start 04/23/17 at 06:45; Stop at 06:46; Status DC Lidocaine HCl (Lidocaine Pf 2% Vial) 5 ml STK-MED ONCE .ROUTE ; Start 04/23/17 at 06:45; Stop 04/23/17 at 06:46; Status DC Ondansetron HCl (Zofran) 4 mg STK-MED ONCE .ROUTE ; Start 04/23/17 at 06:45; Stop 04/23/17 at 06:46; Status DC Dexamethasone Sodium Phosphate (Decadron) 20 mg STK-MED ONCE .ROUTE ; Start at 06:45; Stop 04/23/17 at 06:46; Status DC Cefazolin Sodium 50 ml @ As Directed STK-MED ONCE IV ; Start 04/23/17 at 07:21; Stop 04/23/17 at 07:22; Status DC Lidocaine HCl (Glydo (Lidocaine) Jelly) 6 mehreen STK-MED ONCE .ROUTE Last administered on 04/23/17 08:09; Start 04/23/17 at 07:32; Stop 04/23/17 at 07:33 ; Status DC Ringer's Solution 1,000 ml @ 75 mls/hr 1X ONCE IV Last administered on 07:37; Start 04/23/17 at 07:45; Stop 04/23/17 at 21:04 Ondansetron HCl (Zofran) 4 mg PRN Q6HRS PRN IV NAUSEA/VOMITING; Start 04/23/17 at 08:00; Stop 04/23/17 at 18:00 Fentanyl Citrate (Fentanyl 2ml Vial) 25 mcg PRN Q5MIN PRN IV MILD PAIN; Start 04/23/17 at 08:00; Stop 04/23/17 at 18:00 Fentanyl Citrate (Fentanyl 2ml Vial) 50 mcg PRN Q5MIN PRN IV MODERATE PAIN; Start 04/23/17 at 08:00; Stop 04/23/17 at 18:00 Morphine Sulfate 1 mg PRN Q10MIN PRN IV SEVERE PAIN; Start 04/23/17 at 08:00; Stop 04/23/17 at 18:00 Ringer's Solution 1,000 ml @ 30 mls/hr Q24H IV ; Start 04/23/17 at 07:58; Stop 04/23/17 at 19:57 Lidocaine HCl 2 ml PRN 1X PRN ID PRIOR TO IV START; Start 04/23/17 at 08:00; Stop 04/23/17 at 18:00 Hydromorphone HCl (Dilaudid) 0.5 mg PRN Q10MIN PRN IV SEV PAIN, Second choice; Start 04/23/17 at 08:00; Stop 04/23/17 at 18:00 Prochlorperazine Edisylate (Compazine) 5 mg PACU PRN PRN IV NAUSEA, MRX1; Start 04/23/17 at 08:00; Stop 04/23/17 at 18:00 Midazolam HCl (Versed) 2 mg STK-MED ONCE .ROUTE ; Start 04/23/17 at 08:19; Stop 04/23/17 at 08:20; Status DC Iohexol (Omnipaque 300 Mg/ml) 50 ml STK-MED ONCE .ROUTE Last administered on 08:55; Start 04/23/17 at 08:36; Stop 04/23/17 at 08:37; Status DC Phenylephrine HCl 1 mg STK-MED ONCE IV ; Start 04/23/17 at 09:18; Stop 04/23/17 at 09:19; Status DC Lidocaine HCl 20 ml STK-MED ONCE .ROUTE ; Start 04/23/17 at 09:22; Stop at 09:23; Status DC Heparin Sodium/ Sodium Chloride 1,000 ml @ As Directed STK-MED ONCE .ROUTE ; Start 04/23/17 at 09:23; Stop 04/23/17 at 09:24; Status DC Iodixanol (Visipaque 320) 100 ml STK-MED ONCE .ROUTE ; Start 04/23/17 at 09:23; Stop 04/23/17 at 09:24; Status DC Cefazolin Sodium 50 ml @ 100 mls/hr 1X ONCE IV Last administered on t 07:43; Start 04/23/17 at 09:30; Stop 04/23/17 at 09:59; Status DC Heparin Sodium (Porcine) (Heparin Sodium) 10,000 unit STK-MED ONCE .ROUTE ; Start 04/23/17 at 10:33; Stop 04/23/17 at 10:34; Status DC Fentanyl Citrate (Fentanyl 2ml Vial) 100 mcg STK-MED ONCE .ROUTE ; Start at 10:33; Stop 04/23/17 at 10:34; Status DC Midazolam HCl (Versed) 2 mg STK-MED ONCE .ROUTE ; Start 04/23/17 at 10:33; Stop 04/23/17 at 10:34; Status DC Furosemide (Lasix) 100 mg STK-MED ONCE .ROUTE ; Start 04/23/17 at 10:49; Stop at 10:50; Status DC Active Scripts Active Reported Albuterol Sulfate Neb Soln (Albuterol Sulfate) 2.5 Mg/3 Ml Vial.neb 2.5 Mg NEB QID PRN Flomax (Tamsulosin Hcl) 0.4 Mg Cap.er.24h 2 Cap PO DAILY Lipitor (Atorvastatin Calcium) 40 Mg Tablet 1 Tab PO QHS Tylenol (Acetaminophen) 325 Mg Tablet 1-2 Tab PO Q6HRS PRN Vitals/I & O Vital Sign - Last 24 Hours 04/22/17 04/22/17 04/22/17 04/22/17 11:00 15:15 17:07 19:20 Temp 98.2 97.8 97.9 98.2 97.8 97.9 Pulse 82 98 98 80 Resp 20 20 15 B/P (MAP) 117/82 (94) 112/81 (91) 112/81 102/71 (81) Pulse Ox 97 99 97 O2 Delivery Room Air Room Air Room Air 04/22/17 04/22/17 04/23/17 04/23/17 20:00 23:15 03:20 07:05 Temp 98.0 98.2 98.0 98.2 Pulse 79 76 76 Resp 13 16 B/P (MAP) 103/83 (90) 109/74 (86) 109/74 Pulse Ox 98 99 O2 Delivery Room Air Room Air Room Air 04/23/17 04/23/17 04/23/17 04/23/17 07:32 09:01 09:01 09:16 Temp 97.8 97.2 97.8 97.2 Pulse 88 85 82 Resp 11 18 18 B/P (MAP) 125/93 116/68 117/83 Pulse Ox 97 98 99 O2 Delivery Room Air Nasal Cannula Nasal Cannula Nasal Cannula O2 Flow Rate 5 5 5 04/23/17 04/23/17 04/23/17 09:31 09:46 10:01 Temp 96.9 96.9 Pulse 84 85 85 Resp 18 18 18 B/P (MAP) 107/81 105/81 105/76 Pulse Ox 99 99 100 O2 Delivery Nasal Cannula Nasal Cannula Nasal Cannula O2 Flow Rate 3 3 2 Intake and Output 04/22/17 04/22/17 04/23/17 15:00 23:00 07:00 Intake Total 800 ml 400 ml 240 ml Output Total 500 ml 900 ml 575 ml Balance 300 ml -500 ml -335 ml KRISTEL HUERTA MD Apr 23, 2017 10:53
[2017-04-23] MEDS ORDERED: fentaNYL PF VIAL 100 MCG/2 ML VIAL IV ONE (11:00)
[2017-04-23] MEDS ORDERED: FUROSEMIDE 40 MG/4 ML VIAL. IVP ONE (11:00)
[2017-04-23] MEDS ORDERED: MIDAZOLAM HCL/PF 2 MG/2 ML VIAL. IV ONE ×2 (11:00→13:28)
[2017-04-23] MEDS ORDERED: IODIXANOL 320 MG/ML 100 ML VIAL. IART ONE (11:00)
[2017-04-23] MEDS ORDERED: LIDOCAINE 2% 20 ML VIAL. IJ ONE (11:00)
[2017-04-23] MEDS ORDERED: HEPARIN for IV BOLUS 10,000 UNIT/10 ML VIAL. IV ONE (11:09)
[2017-04-23] MEDS ORDERED: CONTRAST GIVEN MC PRN (11:15)
[2017-04-23] MEDS ORDERED: NOREPINEPHRIN PREMIX 250 ML IV ONE (11:17)
[2017-04-23] MEDS ORDERED: NOREPINEPHRIN PREMIX 250 ML IV PRN (11:23)
[2017-04-23] MEDS ORDERED: PROPOFOL 100 ML IV PRN (11:35)
[2017-04-23] MEDS ORDERED: SUCCINYLCHOLINE 200 MG/10 ML VIAL. IV ONE (12:16)
[2017-04-23] MEDS ORDERED: TIROFIBAN 5MG -0.9% NS 100 ML IV ONE ×2 (13:10→13:15)
[2017-04-23] MEDS ORDERED: FUROSEMIDE 100 MG/10 ML VIAL. IVP ONE (14:00)
[2017-04-23] MEDS ORDERED: CLOPIDOGREL BISULFATE 75 MG TABLET ONE (14:08)
[2017-04-23] MEDS ORDERED: CLOPIDOGREL BISULFATE 75 MG TABLET PO ONE (14:15)
[2017-04-23] MEDS: MIDAZOLAM PREMIX 100 ML IV PRN ×2 (15:08→21:50)
--- NOTE | 2017-04-23 15:29 | RAD ---
Indication: Orogastric tube placement. Time of exam 1522 hours. An orogastric tube passes below the diaphragm and has the tip directed antegrade in the gastric body. Impression: Orogastric tube placement, as described.
[2017-04-23 15:49] LABS: FIO2 ABG 40; HCO3 ABG 28 mmol/L (21-28); PCO2 ABG 38 mmHg (35-46); PO2 ABG 129 mmHg (65-108); SAT O2 ABG 98 % (92-99)
--- NOTE | 2017-04-23 15:55 | PDOC ---
PULMONARY PROGRESS NOTES Vitals Vital Signs Date Time Temp Pulse Resp B/P (MAP) Pulse Ox O2 Delivery O2 Flow Rate FiO2 04/23/17 15:11 98.5 105 16 129/97 (108) 100 Ventilator 98.5 04/23/17 10:01 2 Labs Laboratory Tests Test 04/22/17 04:30 04/23/17 03:15 04/23/17 15:40 White Blood Count 6.0 x10^3/uL (4.0-11.0) 5.8 x10^3/uL (4.0-11.0) Red Blood Count 3.80 x10^6/uL (4.30-5.70) 4.08 x10^6/uL (4.30-5.70) Hemoglobin 10.2 g/dL (13.0-17.5) 11.0 g/dL (13.0-17.5) Hematocrit 31.6 % (39.0-53.0) 34.3 % (39.0-53.0) Mean Corpuscular Volume 83 fL (79-100) 84 fL (79-100) Mean Corpuscular Hemoglobin 27 pg (25-35) 27 pg (25-35) Mean Corpuscular Hemoglobin Concent 32 g/dL (31-37) 32 g/dL (31-37) Red Cell Distribution Width 14.6 % (11.5-14.5) 14.7 % (11.5-14.5) Platelet Count 115 x10^3/uL (140-400) 131 x10^3/uL (140-400) Neutrophils (%) (Auto) 64 % (31-73) 62 % (31-73) Lymphocytes (%) (Auto) 26 % (24-48) 26 % (24-48) Monocytes (%) (Auto) 9 % (0-9) 10 % (0-9) Eosinophils (%) (Auto) 1 % (0-3) 2 % (0-3) Basophils (%) (Auto) 0 % (0-3) 1 % (0-3) Neutrophils # (Auto) 3.8 x10^3uL (1.8-7.7) 3.6 x10^3uL (1.8-7.7) Lymphocytes # (Auto) 1.5 x10^3/uL (1.0-4.8) 1.5 x10^3/uL (1.0-4.8) Monocytes # (Auto) 0.6 x10^3/uL (0.0-1.1) 0.6 x10^3/uL (0.0-1.1) Eosinophils # (Auto) 0.1 x10^3/uL (0.0-0.7) 0.1 x10^3/uL (0.0-0.7) Basophils # (Auto) 0.0 x10^3/uL (0.0-0.2) 0.0 x10^3/uL (0.0-0.2) Platelet Estimate Decreased (ADEQUATE) Giant Platelets Few Poikilocytosis Slight Anisocytosis Slight Sodium Level 140 mmol/L (136-145) 142 mmol/L (136-145) Potassium Level 3.6 mmol/L (3.5-5.1) 3.7 mmol/L (3.5-5.1) Chloride Level 103 mmol/L (98-107) 105 mmol/L (98-107) Carbon Dioxide Level 34 mmol/L (21-32) 30 mmol/L (21-32) Anion Gap 3 (6-14) 7 (6-14) Blood Urea Nitrogen 20 mg/dL (8-26) 14 mg/dL (8-26) Creatinine 0.8 mg/dL (0.7-1.3) 0.8 mg/dL (0.7-1.3) Estimated GFR (Cockcroft-Gault) 116.3 116.3 Glucose Level 120 mg/dL (70-99) 127 mg/dL (70-99) Calcium Level 8.4 mg/dL (8.5-10.1) 8.7 mg/dL (8.5-10.1) O2 Saturation 98 % (92-99) Arterial Blood pH 7.50 (7.35-7.45) Arterial Blood pCO2 at Patient Temp 38 mmHg (35-46) Arterial Blood pO2 at Patient Temp 129 mmHg (65-108) Arterial Blood HCO3 28 mmol/L (21-28) Arterial Blood Base Excess 5 mmol/L (-3-3) FiO2 40 Laboratory Tests Test 04/23/17 03:15 04/23/17 15:40 White Blood Count 5.8 x10^3/uL (4.0-11.0) Red Blood Count 4.08 x10^6/uL (4.30-5.70) Hemoglobin 11.0 g/dL (13.0-17.5) Hematocrit 34.3 % (39.0-53.0) Mean Corpuscular Volume 84 fL (79-100) Mean Corpuscular Hemoglobin 27 pg (25-35) Mean Corpuscular Hemoglobin Concent 32 g/dL (31-37) Red Cell Distribution Width 14.7 % (11.5-14.5) Platelet Count 131 x10^3/uL (140-400) Neutrophils (%) (Auto) 62 % (31-73) Lymphocytes (%) (Auto) 26 % (24-48) Monocytes (%) (Auto) 10 % (0-9) Eosinophils (%) (Auto) 2 % (0-3) Basophils (%) (Auto) 1 % (0-3) Neutrophils # (Auto) 3.6 x10^3uL (1.8-7.7) Lymphocytes # (Auto) 1.5 x10^3/uL (1.0-4.8) Monocytes # (Auto) 0.6 x10^3/uL (0.0-1.1) Eosinophils # (Auto) 0.1 x10^3/uL (0.0-0.7) Basophils # (Auto) 0.0 x10^3/uL (0.0-0.2) Sodium Level 142 mmol/L (136-145) Potassium Level 3.7 mmol/L (3.5-5.1) Chloride Level 105 mmol/L (98-107) Carbon Dioxide Level 30 mmol/L (21-32) Anion Gap 7 (6-14) Blood Urea Nitrogen 14 mg/dL (8-26) Creatinine 0.8 mg/dL (0.7-1.3) Estimated GFR (Cockcroft-Gault) 116.3 Glucose Level 127 mg/dL (70-99) Calcium Level 8.7 mg/dL (8.5-10.1) O2 Saturation 98 % (92-99) Arterial Blood pH 7.50 (7.35-7.45) Arterial Blood pCO2 at Patient Temp 38 mmHg (35-46) Arterial Blood pO2 at Patient Temp 129 mmHg (65-108) Arterial Blood HCO3 28 mmol/L (21-28) Arterial Blood Base Excess 5 mmol/L (-3-3) FiO2 40 Medications Active Scripts Medications Dose Route/Sig Max Daily Dose Days Date Category Albuterol Sulfate Neb Soln (Albuterol Sulfate) 2.5 Mg/3 Ml Vial.neb 2.5 Mg NEB QID PRN 04/19/17 Reported Flomax (Tamsulosin Hcl) 0.4 Mg Cap.er.24h 2 Cap PO DAILY 04/19/17 Reported Lipitor (Atorvastatin Calcium) 40 Mg Tablet 1 Tab PO QHS 04/19/17 Reported Tylenol (Acetaminophen) 325 Mg Tablet 1-2 Tab PO Q6HRS PRN 04/19/17 Reported Impression . FULL CONSULT DICTATED SEE ORDERS THANKS ACUTE RESP FAILURE SEC TO HARSHA CROUCH MD Apr 23, 2017 15:55
[2017-04-23] MEDS ORDERED: LIDOCAINE 1%/EPI 1:100,000 20 ML VIAL. INJ ONE (16:00)
--- NOTE | 2017-04-23 16:20 | RAD ---
Portable AP supine view CXR: Clinical indications: Respiratory failure. Comparison: None available. Findings: ET tube has been placed and the tip is located 3 cm above the level of the brittany. NG tube is in place and the tip is not seen in this study but the tube is seen extending through the proximal body and fundus of the stomach. There is left lung base infiltrate or atelectasis present. Left lateral costophrenic angle is not blunted however. There is left midlung zone linear atelectasis or scarring. Right lung field is clear. No pneumothorax is seen. The heart size is prominent some of which is due to AP magnification. The mediastinum and pulmonary vasculature and both filipe are unremarkable. IMPRESSION: Left lung base infiltrate or atelectasis. Left midlung zone linear atelectasis or scarring.
[2017-04-23] MEDS: ATORVASTATIN CALCIUM 40 MG TABLET. PO SCH (21:00)
[2017-04-23] MEDS: MORPHINE SULFATE 2 MG/ML DISP.SYRIN. IV PRN (21:51)
[2017-04-24] VITALS (19 sets, daily range): BP systolic 85–122; BP diastolic 52–82
--- NOTE | 2017-04-24 01:08 | OP ---
DATE OF SURGERY: 04/23/2017 PROCEDURE: Flexible cystoscopy, urethral dilation and Asencio catheter placement. SURGEON: Chadwick Melgoza M.D. ANESTHESIA: General. PREOPERATIVE DIAGNOSIS: Hematuria. POSTOPERATIVE DIAGNOSIS: Urethral stricture disease. INDICATIONS: The patient is a very pleasant 66-year-old -[place] male admitted with shortness of breath and had episodes of hematuria following attempts at Asencio catheter placement. The patient with question of a history of urethral stricture disease. The patient is to undergo a cardiac angioplasty today and the patient is to undergo cystoscopy to determine the source of the patient's hematuria prior to his angioplasty. DESCRIPTION OF PROCEDURE: After obtaining informed consent, the patient was taken to the operating room and after an excellent level of monitored anesthesia care, the patient was placed in supine position. Penis was prepped and draped in sterile fashion and urethra loaded with lidocaine jelly. The patient was preloaded with IV antibiotics. Flexible cystoscopy was then performed. The patient was noted to have significant urethral stricture disease throughout the penile and bulbar urethra and pinhole type opening along with false passage right next to it from prior Asencio catheter attempts. Following this, floppy tipped ZIPwire was passed under direct vision through the true lumen of the urethral stricture and into the bladder and this was visualized with fluoroscopy. Following this, a 5-Maldivian Asencio catheter was passed over the ZIPwire in the bladder and clear urine drainage was noted after removing the wire. Wire was then replaced and the Asencio catheter removed and then the urethral stricture was then gently dilated up to 12 Maldivian with the sequential coaxial dilators and then following this, a 12-Maldivian Asencio catheter was modified into a venetie ira tip and then passed over the ZIPwire and into the bladder. Position was confirmed by fluoroscopy and clear urine drainage was noted. Therefore, Asencio balloon was inflated after removing the ZIPwire and the Asencio catheter connected to gravity drainage and secured the patient's left thigh with a StatLock. The patient tolerated the procedure very well and then went on for his cardiac catheterization. PLAN: Will be to keep the Asencio catheter in place. Keep him on antibiotics for the next week and then have him follow up with either Dr. Ortega or Dr. Hernandez [facility] for significant urethral stricture disease. CHADWICK MELGOZA MD DR: ALIZE/porfirio JOB#: [id number] / [id number]
[2017-04-24] MEDS: MORPHINE SULFATE 2 MG/ML DISP.SYRIN. IV PRN ×2 (02:18→05:49)
--- NOTE | 2017-04-24 07:33 | RAD ---
Indication: Respiratory failure. Time of exam 0546 hours. Correlation is made with prior exam one day earlier. The heart remains enlarged. Endotracheal tube remains in good position above the brittany. NG tube passes into the stomach. Left basilar consolidation and pleural fluid persists. The right lung is clear. No pneumothorax is seen. Impression: Stable chest since one day earlier.
[2017-04-24] MEDS: CLOPIDOGREL BISULFATE 75 MG TABLET PO SCH ×2 (08:00→13:31)
[2017-04-24] MEDS: CARVEDILOL 3.125 MG TABLET. PO SCH ×2 (08:00→16:45)
[2017-04-24] MEDS: ASPIRIN ENTERIC COATED 81 MG TABLET.DR. PO SCH (08:00)
[2017-04-24 08:36] LABS: FIO2 ABG 30; HCO3 ABG 29 mmol/L (21-28); PCO2 ABG 40 mmHg (35-46); PH ABG 7.48 (7.35-7.45); PO2 ABG 71 mmHg (65-108); SAT O2 ABG 94 % (92-99)
--- NOTE | 2017-04-24 08:39 | PDOC ---
PROGRESS NOTES Subjective Subjective Pt. intubated-on vent Objective Objective Vital Signs Date Time Temp Pulse Resp B/P (MAP) Pulse Ox O2 Delivery O2 Flow Rate FiO2 04/24/17 07:59 98.7 78 18 92/62 (72) 96 Ventilator 98.7 04/23/17 10:01 2 Intake and Output 04/24/17 06:59 Intake Total 621.1 ml Output Total 2875 ml Balance -2253.9 ml Intake Oral 0 ml IV Total 277.1 ml Other 344 ml Output Urine Total 2875 ml Estimated Blood Loss 0 ml Physical Exam Physical Exam parker in place-urine yellow Plan Plan of Care Pt. with urethral stricture disease and false passage Keep parker in place follow up with Dr. Arroyo or Dr. Hernandez at urology in 2-3 weeks Comment Review of Relevant I have reviewed the following items raul (where applicable) has been applied. Labs Laboratory Tests Test 04/23/17 03:15 04/23/17 12:04 04/23/17 13:09 04/23/17 15:40 White Blood Count 5.8 x10^3/uL (4.0-11.0) Red Blood Count 4.08 x10^6/uL (4.30-5.70) Hemoglobin 11.0 g/dL (13.0-17.5) Hematocrit 34.3 % (39.0-53.0) Mean Corpuscular Volume 84 fL (79-100) Mean Corpuscular Hemoglobin 27 pg (25-35) Mean Corpuscular Hemoglobin Concent 32 g/dL (31-37) Red Cell Distribution Width 14.7 % (11.5-14.5) Platelet Count 131 x10^3/uL (140-400) Neutrophils (%) (Auto) 62 % (31-73) Lymphocytes (%) (Auto) 26 % (24-48) Monocytes (%) (Auto) 10 % (0-9) Eosinophils (%) (Auto) 2 % (0-3) Basophils (%) (Auto) 1 % (0-3) Neutrophils # (Auto) 3.6 x10^3uL (1.8-7.7) Lymphocytes # (Auto) 1.5 x10^3/uL (1.0-4.8) Monocytes # (Auto) 0.6 x10^3/uL (0.0-1.1) Eosinophils # (Auto) 0.1 x10^3/uL (0.0-0.7) Basophils # (Auto) 0.0 x10^3/uL (0.0-0.2) Sodium Level 142 mmol/L (136-145) Potassium Level 3.7 mmol/L (3.5-5.1) Chloride Level 105 mmol/L (98-107) Carbon Dioxide Level 30 mmol/L (21-32) Anion Gap 7 (6-14) Blood Urea Nitrogen 14 mg/dL (8-26) Creatinine 0.8 mg/dL (0.7-1.3) Estimated GFR (Cockcroft-Gault) 116.3 Glucose Level 127 mg/dL (70-99) Calcium Level 8.7 mg/dL (8.5-10.1) Activated Clotting Time 233 sec (92-181) 217 sec (92-181) O2 Saturation 98 % (92-99) Arterial Blood pH 7.50 (7.35-7.45) Arterial Blood pCO2 at Patient Temp 38 mmHg (35-46) Arterial Blood pO2 at Patient Temp 129 mmHg (65-108) Arterial Blood HCO3 28 mmol/L (21-28) Arterial Blood Base Excess 5 mmol/L (-3-3) FiO2 40 Test 04/24/17 08:30 O2 Saturation 94 % (92-99) Arterial Blood pH 7.48 (7.35-7.45) Arterial Blood pCO2 at Patient Temp 40 mmHg (35-46) Arterial Blood pO2 at Patient Temp 71 mmHg (65-108) Arterial Blood HCO3 29 mmol/L (21-28) Arterial Blood Base Excess 5 mmol/L (-3-3) FiO2 30 Laboratory Tests Test 04/23/17 12:04 04/23/17 13:09 04/23/17 15:40 04/24/17 08:30 Activated Clotting Time 233 sec (92-181) 217 sec (92-181) O2 Saturation 98 % (92-99) 94 % (92-99) Arterial Blood pH 7.50 (7.35-7.45) 7.48 (7.35-7.45) Arterial Blood pCO2 at Patient Temp 38 mmHg (35-46) 40 mmHg (35-46) Arterial Blood pO2 at Patient Temp 129 mmHg (65-108) 71 mmHg (65-108) Arterial Blood HCO3 28 mmol/L (21-28) 29 mmol/L (21-28) Arterial Blood Base Excess 5 mmol/L (-3-3) 5 mmol/L (-3-3) FiO2 40 30 Microbiology 04/19/17 Urine Culture - Final, Complete 04/19/17 Urine Culture Result 1 (KATHY) - Final, Complete 04/19/17 Antimicrobic Susceptibility - Final, Complete Medications Current Medications Heparin Sodium/ Dextrose 500 ml @ 0 mls/hr CONT PRN IV SEE I/O RECORD Last administered on 04/19/17 12:43; Start 04/19/17 at 01:15; Stop 04/20/17 at 11:58 ; Status DC Heparin Sodium (Porcine) (Heparin Sodium) 2,300 unit PRN Q6HRS PRN IV FOR UFH LEVEL LESS THAN 0.2; Start 04/19/17 at 01:15; Stop 04/20/17 at 11:58; Status DC Morphine Sulfate 2 mg PRN Q2HR PRN IV PAIN Last administered on 04/24/17 05:49 ; Start 04/19/17 at 02:15 Acetaminophen (Tylenol) 650 mg PRN Q6HRS PRN PO ARTHRITIS; Start 04/19/17 at 02 :30; Stop 04/19/17 at 08:07; Status DC Albuterol Sulfate (Ventolin Neb Soln) 2.5 mg PRN QID PRN NEB ASTHMA; Start at 02:30 Atorvastatin Calcium (Lipitor) 40 mg QHS PO Last administered on 04/22/17 21: 26; Start 04/19/17 at 21:00 Tamsulosin HCl (Flomax) 0.8 mg DAILY PO Last administered on 04/22/17 08:38; Start 04/19/17 at 09:00 Ondansetron HCl (Zofran) 4 mg PRN Q6HRS PRN IV NAUSEA/VOMITING; Start 04/19/17 at 03:15 Acetaminophen (Tylenol) 500 mg PRN Q6HRS PRN PO MILD PAIN / TEMP; Start at 08:00 Furosemide (Lasix) 40 mg 1X ONCE IVP Last administered on 04/19/17 12:41; Start 04/19/17 at 10:00; Stop 04/19/17 at 10:05; Status DC Iohexol (Omnipaque 300 Mg/ml) 100 ml STK-MED ONCE .ROUTE ; Start 04/19/17 at 10: 56; Stop 04/19/17 at 10:57; Status DC Heparin Sodium/ Sodium Chloride 1,500 ml @ As Directed STK-MED ONCE .ROUTE ; Start 04/19/17 at 10:56; Stop 04/19/17 at 10:57; Status DC Lidocaine HCl 20 ml STK-MED ONCE .ROUTE ; Start 04/19/17 at 10:56; Stop at 10:57; Status DC Lidocaine HCl 20 ml STK-MED ONCE .ROUTE ; Start 04/19/17 at 10:58; Stop at 10:59; Status DC Nitroglycerin (Nitroglycerin) 200 mcg STK-MED ONCE .ROUTE ; Start 04/19/17 at 11 :01; Stop 04/19/17 at 11:02; Status DC Verapamil HCl (Verapamil) 5 mg STK-MED ONCE .ROUTE ; Start 04/19/17 at 11:01; Stop 04/19/17 at 11:02; Status DC Heparin Sodium (Porcine) (Heparin Sodium) 10,000 unit STK-MED ONCE .ROUTE ; Start 04/19/17 at 11:01; Stop 04/19/17 at 11:02; Status DC Fentanyl Citrate (Fentanyl 2ml Vial) 100 mcg STK-MED ONCE .ROUTE ; Start at 11:02; Stop 04/19/17 at 11:03; Status DC Midazolam HCl (Versed) 2 mg STK-MED ONCE .ROUTE ; Start 04/19/17 at 11:02; Stop 04/19/17 at 11:03; Status DC Nitroglycerin (Nitroglycerin) 200 mcg 1X ONCE IART Last administered on 12:12; Start 04/19/17 at 11:45; Stop 04/19/17 at 11:46; Status DC Verapamil HCl (Verapamil) 2.5 mg 1X ONCE IART Last administered on 04/19/17 12:12; Start 04/19/17 at 11:45; Stop 04/19/17 at 11:46; Status DC Heparin Sodium/ Sodium Chloride 1,000 unit 1X ONCE IART Last administered on 12:05; Start 04/19/17 at 11:45; Stop 04/19/17 at 11:46; Status DC Heparin Sodium/ Sodium Chloride 1,000 unit 1X ONCE IART Last administered on 12:05; Start 04/19/17 at 11:45; Stop 04/19/17 at 11:46; Status DC Midazolam HCl (Versed) 2 mg 1X ONCE IV Last administered on 04/19/17 12:13; Start 04/19/17 at 11:45; Stop 04/19/17 at 11:46; Status DC Fentanyl Citrate (Fentanyl 2ml Vial) 100 mcg 1X ONCE IV Last administered on 12:13; Start 04/19/17 at 11:45; Stop 04/19/17 at 11:46; Status DC Iohexol (Omnipaque 300 Mg/ml) 100 ml 1X ONCE IART Last administered on 12:05; Start 04/19/17 at 11:45; Stop 04/19/17 at 11:46; Status DC Lidocaine HCl 20 ml 1X ONCE IJ Last administered on 04/19/17 12:05; Start at 11:45; Stop 04/19/17 at 11:46; Status DC Info (Do NOT chart on this entry -- for MONITORING) 1 each PRN DAILY PRN MC SEE COMMENTS; Start 04/19/17 at 11:45; Stop 04/21/17 at 11:44; Status DC Milrinone Lactate/ Dextrose 100 ml @ 0 mls/hr CONT PRN IV SEE I/O RECORD Last administered on 04/22/17 17:07; Start 04/19/17 at 12:00 Furosemide (Lasix) 60 mg 1X ONCE IVP Last administered on 04/19/17 16:10; Start 04/19/17 at 15:45; Stop 04/19/17 at 15:46; Status DC Ceftriaxone Sodium 1 gm/ Sodium Chloride 50 ml @ 100 mls/hr Q24H IV Last administered on 04/22/17 08:40; Start 04/20/17 at 10:00 Furosemide (Lasix) 60 mg 1X ONCE IVP Last administered on 04/20/17 13:01; Start 04/20/17 at 12:00; Stop 04/20/17 at 12:01; Status DC Aspirin (Ecotrin) 81 mg DAILYWBKFT PO Last administered on 04/22/17 08:39; Start 04/20/17 at 12:00 Carvedilol (Coreg) 3.125 mg BIDWMEALS PO Last administered on 04/23/17 07:05; Start 04/20/17 at 17:00 Clopidogrel Bisulfate (Plavix) 300 mg 1X ONCE PO Last administered on 09:26; Start 04/21/17 at 08:45; Stop 04/21/17 at 08:46; Status DC Clopidogrel Bisulfate (Plavix) 75 mg DAILYWBKFT PO Last administered on 08:39; Start 04/22/17 at 08:00 Potassium Citrate (Urocit-K) 60 meq 1X ONCE PO Last administered on 04/21/17 09:26; Start 04/21/17 at 08:45; Stop 04/21/17 at 08:48; Status DC Furosemide (Lasix) 40 mg DAILY PO Last administered on 04/22/17 08:39; Start 04/22/17 at 09:00 Furosemide (Lasix) 40 mg 1X ONCE PO Last administered on 04/21/17 09:25; Start 04/21/17 at 09:00; Stop 04/21/17 at 09:01; Status DC Propofol 20 ml @ As Directed STK-MED ONCE IV ; Start 04/23/17 at 06:45; Stop at 06:46; Status DC Lidocaine HCl (Lidocaine Pf 2% Vial) 5 ml STK-MED ONCE .ROUTE ; Start 04/23/17 at 06:45; Stop 04/23/17 at 06:46; Status DC Ondansetron HCl (Zofran) 4 mg STK-MED ONCE .ROUTE ; Start 04/23/17 at 06:45; Stop 04/23/17 at 06:46; Status DC Dexamethasone Sodium Phosphate (Decadron) 20 mg STK-MED ONCE .ROUTE ; Start at 06:45; Stop 04/23/17 at 06:46; Status DC Cefazolin Sodium 50 ml @ As Directed STK-MED ONCE IV ; Start 04/23/17 at 07:21; Stop 04/23/17 at 07:22; Status DC Lidocaine HCl (Glydo (Lidocaine) Jelly) 6 mehreen STK-MED ONCE .ROUTE Last administered on 04/23/17 08:09; Start 04/23/17 at 07:32; Stop 04/23/17 at 07:33 ; Status DC Ringer's Solution 1,000 ml @ 75 mls/hr 1X ONCE IV Last administered on 07:37; Start 04/23/17 at 07:45; Stop 04/23/17 at 21:04; Status DC Ondansetron HCl (Zofran) 4 mg PRN Q6HRS PRN IV NAUSEA/VOMITING; Start 04/23/17 at 08:00; Stop 04/23/17 at 18:00; Status DC Fentanyl Citrate (Fentanyl 2ml Vial) 25 mcg PRN Q5MIN PRN IV MILD PAIN; Start 04/23/17 at 08:00; Stop 04/23/17 at 18:00; Status DC Fentanyl Citrate (Fentanyl 2ml Vial) 50 mcg PRN Q5MIN PRN IV MODERATE PAIN; Start 04/23/17 at 08:00; Stop 04/23/17 at 18:00; Status DC Morphine Sulfate 1 mg PRN Q10MIN PRN IV SEVERE PAIN; Start 04/23/17 at 08:00; Stop 04/23/17 at 18:00; Status DC Ringer's Solution 1,000 ml @ 30 mls/hr Q24H IV ; Start 04/23/17 at 07:58; Stop 04/23/17 at 19:57; Status DC Lidocaine HCl 2 ml PRN 1X PRN ID PRIOR TO IV START; Start 04/23/17 at 08:00; Stop 04/23/17 at 18:00; Status DC Hydromorphone HCl (Dilaudid) 0.5 mg PRN Q10MIN PRN IV SEV PAIN, Second choice; Start 04/23/17 at 08:00; Stop 04/23/17 at 18:00; Status DC Prochlorperazine Edisylate (Compazine) 5 mg PACU PRN PRN IV NAUSEA, MRX1; Start 04/23/17 at 08:00; Stop 04/23/17 at 18:00; Status DC Midazolam HCl (Versed) 2 mg STK-MED ONCE .ROUTE ; Start 04/23/17 at 08:19; Stop 04/23/17 at 08:20; Status DC Iohexol (Omnipaque 300 Mg/ml) 50 ml STK-MED ONCE .ROUTE Last administered on 08:55; Start 04/23/17 at 08:36; Stop 04/23/17 at 08:37; Status DC Phenylephrine HCl 1 mg STK-MED ONCE IV ; Start 04/23/17 at 09:18; Stop 04/23/17 at 09:19; Status DC Lidocaine HCl 20 ml STK-MED ONCE .ROUTE ; Start 04/23/17 at 09:22; Stop at 09:23; Status DC Heparin Sodium/ Sodium Chloride 1,000 ml @ As Directed STK-MED ONCE .ROUTE ; Start 04/23/17 at 09:23; Stop 04/23/17 at 09:24; Status DC Iodixanol (Visipaque 320) 100 ml STK-MED ONCE .ROUTE ; Start 04/23/17 at 09:23; Stop 04/23/17 at 09:24; Status DC Cefazolin Sodium 50 ml @ 100 mls/hr 1X ONCE IV Last administered on 07:43; Start 04/23/17 at 09:30; Stop 04/23/17 at 09:59; Status DC Heparin Sodium (Porcine) (Heparin Sodium) 10,000 unit STK-MED ONCE .ROUTE ; Start 04/23/17 at 10:33; Stop 04/23/17 at 10:34; Status DC Fentanyl Citrate (Fentanyl 2ml Vial) 100 mcg STK-MED ONCE .ROUTE ; Start at 10:33; Stop 04/23/17 at 10:34; Status DC Midazolam HCl (Versed) 2 mg STK-MED ONCE .ROUTE ; Start 04/23/17 at 10:33; Stop 04/23/17 at 10:34; Status DC Furosemide (Lasix) 100 mg STK-MED ONCE .ROUTE ; Start 04/23/17 at 10:49; Stop at 10:50; Status DC Heparin Sodium/ Sodium Chloride 1,000 unit 1X ONCE IART Last administered on 13:42; Start 04/23/17 at 11:00; Stop 04/23/17 at 11:05; Status DC Heparin Sodium/ Sodium Chloride 1,000 unit 1X ONCE IART Last administered on 13:42; Start 04/23/17 at 11:00; Stop 04/23/17 at 11:05; Status DC Midazolam HCl (Versed) 2 mg 1X ONCE IV Last administered on 04/23/17 13:39; Start 04/23/17 at 11:00; Stop 04/23/17 at 11:05; Status DC Fentanyl Citrate (Fentanyl 2ml Vial) 100 mcg 1X ONCE IV Last administered on 13:40; Start 04/23/17 at 11:00; Stop 04/23/17 at 11:05; Status DC Iodixanol (Visipaque 320) 100 ml 1X ONCE IART Last administered on 04/23/17 13:40; Start 04/23/17 at 11:00; Stop 04/23/17 at 11:05; Status DC Lidocaine HCl 20 ml 1X ONCE IJ Last administered on 04/23/17 13:41; Start at 11:00; Stop 04/23/17 at 11:05; Status DC Furosemide (Lasix) 40 mg 1X ONCE IVP ; Start 04/23/17 at 11:00; Stop 04/23/17 at 11:01; Status Cancel Info (Do NOT chart on this entry -- for MONITORING) 1 each PRN DAILY PRN MC SEE COMMENTS; Start 04/23/17 at 11:15; Stop 04/25/17 at 11:14 Norepinephrine Bitartrate 250 ml @ As Directed STK-MED ONCE IV ; Start at 11:17; Stop 04/23/17 at 11:18; Status DC Heparin Sodium/ Sodium Chloride 500 ml @ As Directed STK-MED ONCE .ROUTE ; Start 04/23/17 at 11:24; Stop 04/23/17 at 11:25; Status DC Fentanyl Citrate (Fentanyl 2ml Vial) 100 mcg STK-MED ONCE .ROUTE ; Start at 12:19; Stop 04/23/17 at 12:20; Status DC Midazolam HCl (Versed) 2 mg STK-MED ONCE .ROUTE ; Start 04/23/17 at 12:19; Stop 04/23/17 at 12:20; Status DC Norepinephrine Bitartrate 250 ml @ 0 mls/hr CONT PRN IV SEE I/O RECORD Last administered on 04/23/17 13:45; Start 04/23/17 at 11:23 Propofol 100 ml @ 0 mls/hr CONT PRN IV SEE I/O RECORD Last administered on 04/23 13:49; Start 04/23/17 at 11:35 Heparin Sodium (Porcine) (Heparin Sodium) 8,000 unit 1X ONCE IV Last administered on 04/23/17 13:44; Start 04/23/17 at 11:09; Stop 04/23/17 at 12:28 ; Status DC Midazolam HCl (Versed) 2 mg STK-MED ONCE .ROUTE ; Start 04/23/17 at 12:29; Stop 04/23/17 at 12:30; Status DC Midazolam HCl (Versed) 2 mg STK-MED ONCE .ROUTE ; Start 04/23/17 at 12:44; Stop 04/23/17 at 12:45; Status DC Midazolam HCl 100 ml @ 0 mls/hr CONT PRN IV SEE I/O RECORD Last administered on 04/23/17 21:50; Start 04/23/17 at 13:00 Succinylcholine Chloride (Anectine) 100 mg 1X ONCE IV Last administered on 13:44; Start 04/23/17 at 12:16; Stop 04/23/17 at 13:07; Status DC Tirofiban/Sodium Chloride 100 ml @ 0 mls/hr 1X ONCE IV Last administered on 13:38; Start 04/23/17 at 13:15; Stop 04/23/17 at 13:20; Status DC Iodixanol (Visipaque 320) 100 ml STK-MED ONCE .ROUTE ; Start 04/23/17 at 12:56; Stop 04/23/17 at 13:20; Status DC Tirofiban/Sodium Chloride 100 ml @ As Directed STK-MED ONCE IV ; Start at 13:10; Stop 04/23/17 at 13:20; Status DC Midazolam HCl (Versed) 2 mg STK-MED ONCE .ROUTE ; Start 04/23/17 at 13:26; Stop 04/23/17 at 13:27; Status DC Furosemide (Lasix) 40 mg 1X ONCE IVP Last administered on 04/23/17 10:53; Start 04/23/17 at 14:00; Stop 04/23/17 at 14:01; Status DC Clopidogrel Bisulfate (Plavix) 75 mg STK-MED ONCE .ROUTE ; Start 04/23/17 at 14: 08; Stop 04/23/17 at 14:09; Status DC Clopidogrel Bisulfate (Plavix) 300 mg 1X ONCE PO Last administered on 14:15; Start 04/23/17 at 14:15; Stop 04/23/17 at 14:29; Status DC Midazolam HCl (Versed) 1 mg 1X ONCE IV Last administered on 04/23/17 13:28; Start 04/23/17 at 13:28; Stop 04/23/17 at 14:32; Status DC Lidocaine/ Epinephrine (Xylocaine 1%-Epi 1:100,000) 20 ml 1X ONCE INJ Last administered on 04/23/17 18:41; Start 04/23/17 at 16:00; Stop 04/23/17 at 16:08 ; Status DC Active Scripts Active Reported Albuterol Sulfate Neb Soln (Albuterol Sulfate) 2.5 Mg/3 Ml Vial.neb 2.5 Mg NEB QID PRN Flomax (Tamsulosin Hcl) 0.4 Mg Cap.er.24h 2 Cap PO DAILY Lipitor (Atorvastatin Calcium) 40 Mg Tablet 1 Tab PO QHS Tylenol (Acetaminophen) 325 Mg Tablet 1-2 Tab PO Q6HRS PRN Vitals/I & O Vital Sign - Last 24 Hours 04/23/17 04/23/17 04/23/17 04/23/17 09:01 09:01 09:16 09:31 Temp 97.2 97.2 Pulse 85 82 84 Resp 18 18 18 B/P (MAP) 116/68 117/83 107/81 Pulse Ox 98 99 99 O2 Delivery Nasal Cannula Nasal Cannula Nasal Cannula Nasal Cannula O2 Flow Rate 5 5 5 3 04/23/17 04/23/17 04/23/17 04/23/17 09:46 10:01 13:26 13:40 Temp 96.9 96.9 Pulse 85 85 Resp 18 18 20 B/P (MAP) 105/81 105/76 Pulse Ox 99 100 100 O2 Delivery Nasal Cannula Nasal Cannula Ventilator Ventilator O2 Flow Rate 3 2 04/23/17 04/23/17 04/23/17 04/23/17 14:48 14:51 15:00 15:11 Temp 98.5 98.5 Pulse 101 105 Resp 20 16 B/P (MAP) 129/97 (108) Pulse Ox 100 100 100 O2 Delivery Ventilator Mechanical Ventilator Ventilator Ventilator 04/23/17 04/23/17 04/23/17 04/23/17 15:51 15:57 16:17 17:00 Temp 98.5 98.5 98.5 98.5 Pulse 110 114 Resp 16 B/P (MAP) 122/95 (104) 118/91 (100) Pulse Ox 100 100 O2 Delivery Ventilator Mechanical Ventilator Ventilator 04/23/17 04/23/17 04/23/17 04/23/17 17:05 18:08 18:11 19:00 Temp 98.5 98.5 98.5 98.5 Pulse 108 108 108 Resp 14 14 14 B/P (MAP) 118/91 (100) 109/80 (90) 108/78 (88) Pulse Ox 100 100 100 100 O2 Delivery Ventilator Ventilator Ventilator Ventilator 04/23/17 04/23/17 04/23/17 04/23/17 19:30 20:00 20:00 21:00 Temp 98.8 98.8 Pulse 108 108 Resp 14 14 B/P (MAP) 110/79 (89) 99/78 (85) Pulse Ox 99 100 100 O2 Delivery Ventilator Ventilator Mechanical Ventilator Ventilator 04/23/17 04/23/17 04/23/17 04/23/17 21:20 21:51 22:00 22:13 Pulse 80 Resp 16 14 14 B/P (MAP) 96/69 (78) Pulse Ox 99 100 100 100 O2 Delivery Ventilator Ventilator Ventilator Ventilator 04/23/17 04/23/17 04/24/17 04/24/17 23:00 23:20 00:00 00:00 Temp 98.8 98.8 Pulse 74 76 Resp 14 14 B/P (MAP) 93/63 (73) 105/67 (80) Pulse Ox 98 97 96 O2 Delivery Ventilator Ventilator Mechanical Ventilator Ventilator 04/24/17 04/24/17 04/24/17 04/24/17 00:55 01:00 02:00 02:18 Pulse 77 77 Resp 14 14 14 B/P (MAP) 101/62 (75) 92/60 (71) Pulse Ox 96 98 96 100 O2 Delivery Ventilator Ventilator Ventilator Ventilator 04/24/17 04/24/17 04/24/17 04/24/17 02:45 03:00 04:00 04:00 Temp 98.7 98.7 Pulse 74 77 Resp 14 14 B/P (MAP) 96/74 (81) 91/59 (70) Pulse Ox 96 98 97 O2 Delivery Ventilator Ventilator Ventilator Mechanical Ventilator 04/24/17 04/24/17 04/24/17 04/24/17 05:00 05:10 05:49 06:00 Pulse 78 78 Resp 14 14 14 B/P (MAP) 92/64 (73) 104/78 (87) Pulse Ox 98 96 98 96 O2 Delivery Ventilator Ventilator Ventilator Ventilator 04/24/17 04/24/17 04/24/17 04/24/17 06:19 07:00 07:25 07:53 Temp 98.7 98.7 Pulse 78 Resp 14 16 B/P (MAP) 85/62 (70) Pulse Ox 98 98 96 O2 Delivery Ventilator Ventilator Ventilator Mechanical Ventilator 04/24/17 07:59 Temp 98.7 98.7 Pulse 78 Resp 18 B/P (MAP) 92/62 (72) Pulse Ox 96 O2 Delivery Ventilator Intake and Output 04/23/17 04/23/17 04/24/17 14:59 22:59 06:59 Intake Total 100 ml 0 ml 521.1 ml Output Total 1000 ml 1875 ml Balance -900 ml 0 ml -1353.9 ml CHADWICK JOYNER MD Apr 24, 2017 08:39
[2017-04-24] MEDS: FUROSEMIDE 40 MG TABLET. PO SCH ×2 (09:00→13:31)
[2017-04-24] MEDS: TAMSULOSIN 0.4 MG CAP.ER.24H. PO SCH ×2 (09:00→13:31)
--- NOTE | 2017-04-24 09:34 | PDOC ---
PULMONARY PROGRESS NOTES Subjective PT WITH NO DISTRESS EXTUBATED EARLIER THIS AM Vitals Vital Signs Date Time Temp Pulse Resp B/P (MAP) Pulse Ox O2 Delivery O2 Flow Rate FiO2 04/24/17 09:01 98.7 85 16 103/65 (78) 97 98.7 04/24/17 07:59 Ventilator 04/23/17 10:01 2 ROS: No Nausea, No Chest Pain, No Abdominal Pain, No Increase Cough General: Alert Lungs: Clear Cardiovascular: S1, S2 Abdomen: Soft, Non-tender Neuro Exam: Alert, Oriented Extremities: No Edema Skin: Warm, Dry Labs Laboratory Tests Test 04/23/17 03:15 04/23/17 12:04 04/23/17 13:09 04/23/17 15:40 White Blood Count 5.8 x10^3/uL (4.0-11.0) Red Blood Count 4.08 x10^6/uL (4.30-5.70) Hemoglobin 11.0 g/dL (13.0-17.5) Hematocrit 34.3 % (39.0-53.0) Mean Corpuscular Volume 84 fL (79-100) Mean Corpuscular Hemoglobin 27 pg (25-35) Mean Corpuscular Hemoglobin Concent 32 g/dL (31-37) Red Cell Distribution Width 14.7 % (11.5-14.5) Platelet Count 131 x10^3/uL (140-400) Neutrophils (%) (Auto) 62 % (31-73) Lymphocytes (%) (Auto) 26 % (24-48) Monocytes (%) (Auto) 10 % (0-9) Eosinophils (%) (Auto) 2 % (0-3) Basophils (%) (Auto) 1 % (0-3) Neutrophils # (Auto) 3.6 x10^3uL (1.8-7.7) Lymphocytes # (Auto) 1.5 x10^3/uL (1.0-4.8) Monocytes # (Auto) 0.6 x10^3/uL (0.0-1.1) Eosinophils # (Auto) 0.1 x10^3/uL (0.0-0.7) Basophils # (Auto) 0.0 x10^3/uL (0.0-0.2) Sodium Level 142 mmol/L (136-145) Potassium Level 3.7 mmol/L (3.5-5.1) Chloride Level 105 mmol/L (98-107) Carbon Dioxide Level 30 mmol/L (21-32) Anion Gap 7 (6-14) Blood Urea Nitrogen 14 mg/dL (8-26) Creatinine 0.8 mg/dL (0.7-1.3) Estimated GFR (Cockcroft-Gault) 116.3 Glucose Level 127 mg/dL (70-99) Calcium Level 8.7 mg/dL (8.5-10.1) Activated Clotting Time 233 sec (92-181) 217 sec (92-181) O2 Saturation 98 % (92-99) Arterial Blood pH 7.50 (7.35-7.45) Arterial Blood pCO2 at Patient Temp 38 mmHg (35-46) Arterial Blood pO2 at Patient Temp 129 mmHg (65-108) Arterial Blood HCO3 28 mmol/L (21-28) Arterial Blood Base Excess 5 mmol/L (-3-3) FiO2 40 Test 04/24/17 08:30 O2 Saturation 94 % (92-99) Arterial Blood pH 7.48 (7.35-7.45) Arterial Blood pCO2 at Patient Temp 40 mmHg (35-46) Arterial Blood pO2 at Patient Temp 71 mmHg (65-108) Arterial Blood HCO3 29 mmol/L (21-28) Arterial Blood Base Excess 5 mmol/L (-3-3) FiO2 30 Laboratory Tests Test 04/23/17 12:04 04/23/17 13:09 04/23/17 15:40 04/24/17 08:30 Activated Clotting Time 233 sec (92-181) 217 sec (92-181) O2 Saturation 98 % (92-99) 94 % (92-99) Arterial Blood pH 7.50 (7.35-7.45) 7.48 (7.35-7.45) Arterial Blood pCO2 at Patient Temp 38 mmHg (35-46) 40 mmHg (35-46) Arterial Blood pO2 at Patient Temp 129 mmHg (65-108) 71 mmHg (65-108) Arterial Blood HCO3 28 mmol/L (21-28) 29 mmol/L (21-28) Arterial Blood Base Excess 5 mmol/L (-3-3) 5 mmol/L (-3-3) FiO2 40 30 Medications Active Scripts Medications Dose Route/Sig Max Daily Dose Days Date Category Albuterol Sulfate Neb Soln (Albuterol Sulfate) 2.5 Mg/3 Ml Vial.neb 2.5 Mg NEB QID PRN 04/19/17 Reported Flomax (Tamsulosin Hcl) 0.4 Mg Cap.er.24h 2 Cap PO DAILY 04/19/17 Reported Lipitor (Atorvastatin Calcium) 40 Mg Tablet 1 Tab PO QHS 04/19/17 Reported Tylenol (Acetaminophen) 325 Mg Tablet 1-2 Tab PO Q6HRS PRN 04/19/17 Reported Comments REVIEWED LLL ATELECTASIS Impression . 1. ACUTE RESP FAILURE SEC TO NSTEMI 2. 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 Acute on chronic combined systolic and diastolic heart failure 4. ICM; LVEF 15-20% 5. Hyperlipidemia 6. COPD QUIT OVER 10 YEARS AGO Plan . PT EXTUBATED EARLIER TODAY START DIET FOLLOW CARD INPUT 02 HARSHA OTOOLE MD Apr 24, 2017 09:34
[2017-04-24 09:44] LABS: FIO2 ABG 30; HCO3 ABG 31 mmol/L (21-28); PCO2 ABG 46 mmHg (35-46); PH ABG 7.44 (7.35-7.45); PO2 ABG 74 mmHg (65-108); SAT O2 ABG 95 % (92-99)
--- NOTE | 2017-04-24 10:19 | PDOC ---
PROGRESS NOTES Chief Complaint Chief Complaint 1. 3 vessel CAD,s/p PCI and balloon angioplasty (04/23) 2. s/p cysto (04/23) - Urethral stricture dse with false passage 3. Acute respiratory failure intubated (04/23) for the above 2 procedures 4. Severe ischemic CM with EF 15% 5. Bilateral trace pleural effusions 6. Dyslipidemia 7. Incidental subCM liver nodule 8. Remote etoh hx - quit 20 yrs History of Present Illness History of Present Illness Intubated, mildly awake ABG good PH 7.4, Co2 46 O2 74 VS ok - not on any pressors Urology note reviewed: ff up [facility] for the cysto findings - stricture in 2-3 weeks LAbs todaY: hgb 11, PLatelets 131, WBC 5 GOod UO, parker PALn: PLans of extubation today Follow cards recs re cardiac meds FF up [facility] 2-3 weeks re urethral structure dse and false passage Dw [facility] Claudio Vitals Vitals Vital Signs Date Time Temp Pulse Resp B/P (MAP) Pulse Ox O2 Delivery O2 Flow Rate FiO2 04/24/17 10:03 98.7 81 16 101/64 (76) 96 98.7 04/24/17 09:36 Ventilator 04/23/17 10:01 2 Physical Exam General: Alert, Oriented X3, Cooperative Heart: Normal S1, Normal S2, No murmurs Abdomen: Normal bowel sounds, Other (distended) Extremities: No edema, Normal pulses Skin: No breakdown, No significant lesion Labs LABS Laboratory Tests Test 04/23/17 12:04 04/23/17 13:09 04/23/17 15:40 04/24/17 08:30 Activated Clotting Time 233 sec (92-181) 217 sec (92-181) O2 Saturation 98 % (92-99) 94 % (92-99) Arterial Blood pH 7.50 (7.35-7.45) 7.48 (7.35-7.45) Arterial Blood pCO2 at Patient Temp 38 mmHg (35-46) 40 mmHg (35-46) Arterial Blood pO2 at Patient Temp 129 mmHg (65-108) 71 mmHg (65-108) Arterial Blood HCO3 28 mmol/L (21-28) 29 mmol/L (21-28) Arterial Blood Base Excess 5 mmol/L (-3-3) 5 mmol/L (-3-3) FiO2 40 30 Test 04/24/17 09:30 O2 Saturation 95 % (92-99) Arterial Blood pH 7.44 (7.35-7.45) Arterial Blood pCO2 at Patient Temp 46 mmHg (35-46) Arterial Blood pO2 at Patient Temp 74 mmHg (65-108) Arterial Blood HCO3 31 mmol/L (21-28) Arterial Blood Base Excess 6 mmol/L (-3-3) FiO2 30 Review of Systems Review of Systems intubated Comment Review of Relevant I have reviewed the following items raul (where applicable) has been applied. Labs Laboratory Tests Test 04/23/17 03:15 04/23/17 12:04 04/23/17 13:09 04/23/17 15:40 White Blood Count 5.8 x10^3/uL (4.0-11.0) Red Blood Count 4.08 x10^6/uL (4.30-5.70) Hemoglobin 11.0 g/dL (13.0-17.5) Hematocrit 34.3 % (39.0-53.0) Mean Corpuscular Volume 84 fL (79-100) Mean Corpuscular Hemoglobin 27 pg (25-35) Mean Corpuscular Hemoglobin Concent 32 g/dL (31-37) Red Cell Distribution Width 14.7 % (11.5-14.5) Platelet Count 131 x10^3/uL (140-400) Neutrophils (%) (Auto) 62 % (31-73) Lymphocytes (%) (Auto) 26 % (24-48) Monocytes (%) (Auto) 10 % (0-9) Eosinophils (%) (Auto) 2 % (0-3) Basophils (%) (Auto) 1 % (0-3) Neutrophils # (Auto) 3.6 x10^3uL (1.8-7.7) Lymphocytes # (Auto) 1.5 x10^3/uL (1.0-4.8) Monocytes # (Auto) 0.6 x10^3/uL (0.0-1.1) Eosinophils # (Auto) 0.1 x10^3/uL (0.0-0.7) Basophils # (Auto) 0.0 x10^3/uL (0.0-0.2) Sodium Level 142 mmol/L (136-145) Potassium Level 3.7 mmol/L (3.5-5.1) Chloride Level 105 mmol/L (98-107) Carbon Dioxide Level 30 mmol/L (21-32) Anion Gap 7 (6-14) Blood Urea Nitrogen 14 mg/dL (8-26) Creatinine 0.8 mg/dL (0.7-1.3) Estimated GFR (Cockcroft-Gault) 116.3 Glucose Level 127 mg/dL (70-99) Calcium Level 8.7 mg/dL (8.5-10.1) Activated Clotting Time 233 sec (92-181) 217 sec (92-181) O2 Saturation 98 % (92-99) Arterial Blood pH 7.50 (7.35-7.45) Arterial Blood pCO2 at Patient Temp 38 mmHg (35-46) Arterial Blood pO2 at Patient Temp 129 mmHg (65-108) Arterial Blood HCO3 28 mmol/L (21-28) Arterial Blood Base Excess 5 mmol/L (-3-3) FiO2 40 Test 04/24/17 08:30 04/24/17 09:30 O2 Saturation 94 % (92-99) 95 % (92-99) Arterial Blood pH 7.48 (7.35-7.45) 7.44 (7.35-7.45) Arterial Blood pCO2 at Patient Temp 40 mmHg (35-46) 46 mmHg (35-46) Arterial Blood pO2 at Patient Temp 71 mmHg (65-108) 74 mmHg (65-108) Arterial Blood HCO3 29 mmol/L (21-28) 31 mmol/L (21-28) Arterial Blood Base Excess 5 mmol/L (-3-3) 6 mmol/L (-3-3) FiO2 30 30 Laboratory Tests Test 04/23/17 12:04 04/23/17 13:09 04/23/17 15:40 04/24/17 08:30 Activated Clotting Time 233 sec (92-181) 217 sec (92-181) O2 Saturation 98 % (92-99) 94 % (92-99) Arterial Blood pH 7.50 (7.35-7.45) 7.48 (7.35-7.45) Arterial Blood pCO2 at Patient Temp 38 mmHg (35-46) 40 mmHg (35-46) Arterial Blood pO2 at Patient Temp 129 mmHg (65-108) 71 mmHg (65-108) Arterial Blood HCO3 28 mmol/L (21-28) 29 mmol/L (21-28) Arterial Blood Base Excess 5 mmol/L (-3-3) 5 mmol/L (-3-3) FiO2 40 30 Test 04/24/17 09:30 O2 Saturation 95 % (92-99) Arterial Blood pH 7.44 (7.35-7.45) Arterial Blood pCO2 at Patient Temp 46 mmHg (35-46) Arterial Blood pO2 at Patient Temp 74 mmHg (65-108) Arterial Blood HCO3 31 mmol/L (21-28) Arterial Blood Base Excess 6 mmol/L (-3-3) FiO2 30 Microbiology 04/19/17 Urine Culture - Final, Complete 04/19/17 Urine Culture Result 1 (KATHY) - Final, Complete 04/19/17 Antimicrobic Susceptibility - Final, Complete Medications Current Medications Heparin Sodium/ Dextrose 500 ml @ 0 mls/hr CONT PRN IV SEE I/O RECORD Last administered on 04/19/17 12:43; Start 04/19/17 at 01:15; Stop 04/20/17 at 11:58 ; Status DC Heparin Sodium (Porcine) (Heparin Sodium) 2,300 unit PRN Q6HRS PRN IV FOR UFH LEVEL LESS THAN 0.2; Start 04/19/17 at 01:15; Stop 04/20/17 at 11:58; Status DC Morphine Sulfate 2 mg PRN Q2HR PRN IV PAIN Last administered on 04/24/17 05:49 ; Start 04/19/17 at 02:15 Acetaminophen (Tylenol) 650 mg PRN Q6HRS PRN PO ARTHRITIS; Start 04/19/17 at 02 :30; Stop 04/19/17 at 08:07; Status DC Albuterol Sulfate (Ventolin Neb Soln) 2.5 mg PRN QID PRN NEB ASTHMA; Start at 02:30 Atorvastatin Calcium (Lipitor) 40 mg QHS PO Last administered on 04/22/17 21: 26; Start 04/19/17 at 21:00 Tamsulosin HCl (Flomax) 0.8 mg DAILY PO Last administered on 04/22/17 08:38; Start 04/19/17 at 09:00 Ondansetron HCl (Zofran) 4 mg PRN Q6HRS PRN IV NAUSEA/VOMITING; Start 04/19/17 at 03:15 Acetaminophen (Tylenol) 500 mg PRN Q6HRS PRN PO MILD PAIN / TEMP; Start at 08:00 Furosemide (Lasix) 40 mg 1X ONCE IVP Last administered on 04/19/17t 12:41; Start 04/19/17 at 10:00; Stop 04/19/17 at 10:05; Status DC Iohexol (Omnipaque 300 Mg/ml) 100 ml STK-MED ONCE .ROUTE ; Start 04/19/17 at 10: 56; Stop 04/19/17 at 10:57; Status DC Heparin Sodium/ Sodium Chloride 1,500 ml @ As Directed STK-MED ONCE .ROUTE ; Start 04/19/17 at 10:56; Stop 04/19/17 at 10:57; Status DC Lidocaine HCl 20 ml STK-MED ONCE .ROUTE ; Start 04/19/17 at 10:56; Stop at 10:57; Status DC Lidocaine HCl 20 ml STK-MED ONCE .ROUTE ; Start 04/19/17 at 10:58; Stop at 10:59; Status DC Nitroglycerin (Nitroglycerin) 200 mcg STK-MED ONCE .ROUTE ; Start 04/19/17 at 11 :01; Stop 04/19/17 at 11:02; Status DC Verapamil HCl (Verapamil) 5 mg STK-MED ONCE .ROUTE ; Start 04/19/17 at 11:01; Stop 04/19/17 at 11:02; Status DC Heparin Sodium (Porcine) (Heparin Sodium) 10,000 unit STK-MED ONCE .ROUTE ; Start 04/19/17 at 11:01; Stop 04/19/17 at 11:02; Status DC Fentanyl Citrate (Fentanyl 2ml Vial) 100 mcg STK-MED ONCE .ROUTE ; Start at 11:02; Stop 04/19/17 at 11:03; Status DC Midazolam HCl (Versed) 2 mg STK-MED ONCE .ROUTE ; Start 04/19/17 at 11:02; Stop 04/19/17 at 11:03; Status DC Nitroglycerin (Nitroglycerin) 200 mcg 1X ONCE IART Last administered on t 12:12; Start 04/19/17 at 11:45; Stop 04/19/17 at 11:46; Status DC Verapamil HCl (Verapamil) 2.5 mg 1X ONCE IART Last administered on 04/19/17 12:12; Start 04/19/17 at 11:45; Stop 04/19/17 at 11:46; Status DC Heparin Sodium/ Sodium Chloride 1,000 unit 1X ONCE IART Last administered on 12:05; Start 04/19/17 at 11:45; Stop 04/19/17 at 11:46; Status DC Heparin Sodium/ Sodium Chloride 1,000 unit 1X ONCE IART Last administered on 12:05; Start 04/19/17 at 11:45; Stop 04/19/17 at 11:46; Status DC Midazolam HCl (Versed) 2 mg 1X ONCE IV Last administered on 04/19/17 12:13; Start 04/19/17 at 11:45; Stop 04/19/17 at 11:46; Status DC Fentanyl Citrate (Fentanyl 2ml Vial) 100 mcg 1X ONCE IV Last administered on 12:13; Start 04/19/17 at 11:45; Stop 04/19/17 at 11:46; Status DC Iohexol (Omnipaque 300 Mg/ml) 100 ml 1X ONCE IART Last administered on 12:05; Start 04/19/17 at 11:45; Stop 04/19/17 at 11:46; Status DC Lidocaine HCl 20 ml 1X ONCE IJ Last administered on 04/19/17 12:05; Start at 11:45; Stop 04/19/17 at 11:46; Status DC Info (Do NOT chart on this entry -- for MONITORING) 1 each PRN DAILY PRN MC SEE COMMENTS; Start 04/19/17 at 11:45; Stop 04/21/17 at 11:44; Status DC Milrinone Lactate/ Dextrose 100 ml @ 0 mls/hr CONT PRN IV SEE I/O RECORD Last administered on 04/22/17 17:07; Start 04/19/17 at 12:00 Furosemide (Lasix) 60 mg 1X ONCE IVP Last administered on 04/19/17 16:10; Start 04/19/17 at 15:45; Stop 04/19/17 at 15:46; Status DC Ceftriaxone Sodium 1 gm/ Sodium Chloride 50 ml @ 100 mls/hr Q24H IV Last administered on 04/22/17 08:40; Start 04/20/17 at 10:00 Furosemide (Lasix) 60 mg 1X ONCE IVP Last administered on 04/20/17 13:01; Start 04/20/17 at 12:00; Stop 04/20/17 at 12:01; Status DC Aspirin (Ecotrin) 81 mg DAILYWBKFT PO Last administered on 04/22/17 08:39; Start 04/20/17 at 12:00 Carvedilol (Coreg) 3.125 mg BIDWMEALS PO Last administered on 04/23/17 07:05; Start 04/20/17 at 17:00 Clopidogrel Bisulfate (Plavix) 300 mg 1X ONCE PO Last administered on 09:26; Start 04/21/17 at 08:45; Stop 04/21/17 at 08:46; Status DC Clopidogrel Bisulfate (Plavix) 75 mg DAILYWBKFT PO Last administered on 08:39; Start 04/22/17 at 08:00 Potassium Citrate (Urocit-K) 60 meq 1X ONCE PO Last administered on 04/21/17 09:26; Start 04/21/17 at 08:45; Stop 04/21/17 at 08:48; Status DC Furosemide (Lasix) 40 mg DAILY PO Last administered on 04/22/17 08:39; Start 04/22/17 at 09:00 Furosemide (Lasix) 40 mg 1X ONCE PO Last administered on 04/21/17 09:25; Start 04/21/17 at 09:00; Stop 04/21/17 at 09:01; Status DC Propofol 20 ml @ As Directed STK-MED ONCE IV ; Start 04/23/17 at 06:45; Stop at 06:46; Status DC Lidocaine HCl (Lidocaine Pf 2% Vial) 5 ml STK-MED ONCE .ROUTE ; Start 04/23/17 at 06:45; Stop 04/23/17 at 06:46; Status DC Ondansetron HCl (Zofran) 4 mg STK-MED ONCE .ROUTE ; Start 04/23/17 at 06:45; Stop 04/23/17 at 06:46; Status DC Dexamethasone Sodium Phosphate (Decadron) 20 mg STK-MED ONCE .ROUTE ; Start at 06:45; Stop 04/23/17 at 06:46; Status DC Cefazolin Sodium 50 ml @ As Directed STK-MED ONCE IV ; Start 04/23/17 at 07:21; Stop 04/23/17 at 07:22; Status DC Lidocaine HCl (Glydo (Lidocaine) Jelly) 6 mehreen STK-MED ONCE .ROUTE Last administered on 04/23/17 08:09; Start 04/23/17 at 07:32; Stop 04/23/17 at 07:33 ; Status DC Ringer's Solution 1,000 ml @ 75 mls/hr 1X ONCE IV Last administered on 07:37; Start 04/23/17 at 07:45; Stop 04/23/17 at 21:04; Status DC Ondansetron HCl (Zofran) 4 mg PRN Q6HRS PRN IV NAUSEA/VOMITING; Start 04/23/17 at 08:00; Stop 04/23/17 at 18:00; Status DC Fentanyl Citrate (Fentanyl 2ml Vial) 25 mcg PRN Q5MIN PRN IV MILD PAIN; Start 04/23/17 at 08:00; Stop 04/23/17 at 18:00; Status DC Fentanyl Citrate (Fentanyl 2ml Vial) 50 mcg PRN Q5MIN PRN IV MODERATE PAIN; Start 04/23/17 at 08:00; Stop 04/23/17 at 18:00; Status DC Morphine Sulfate 1 mg PRN Q10MIN PRN IV SEVERE PAIN; Start 04/23/17 at 08:00; Stop 04/23/17 at 18:00; Status DC Ringer's Solution 1,000 ml @ 30 mls/hr Q24H IV ; Start 04/23/17 at 07:58; Stop 04/23/17 at 19:57; Status DC Lidocaine HCl 2 ml PRN 1X PRN ID PRIOR TO IV START; Start 04/23/17 at 08:00; Stop 04/23/17 at 18:00; Status DC Hydromorphone HCl (Dilaudid) 0.5 mg PRN Q10MIN PRN IV SEV PAIN, Second choice; Start 04/23/17 at 08:00; Stop 04/23/17 at 18:00; Status DC Prochlorperazine Edisylate (Compazine) 5 mg PACU PRN PRN IV NAUSEA, MRX1; Start 04/23/17 at 08:00; Stop 04/23/17 at 18:00; Status DC Midazolam HCl (Versed) 2 mg STK-MED ONCE .ROUTE ; Start 04/23/17 at 08:19; Stop 04/23/17 at 08:20; Status DC Iohexol (Omnipaque 300 Mg/ml) 50 ml STK-MED ONCE .ROUTE Last administered on t 08:55; Start 04/23/17 at 08:36; Stop 04/23/17 at 08:37; Status DC Phenylephrine HCl 1 mg STK-MED ONCE IV ; Start 04/23/17 at 09:18; Stop 04/23/17 at 09:19; Status DC Lidocaine HCl 20 ml STK-MED ONCE .ROUTE ; Start 04/23/17 at 09:22; Stop at 09:23; Status DC Heparin Sodium/ Sodium Chloride 1,000 ml @ As Directed STK-MED ONCE .ROUTE ; Start 04/23/17 at 09:23; Stop 04/23/17 at 09:24; Status DC Iodixanol (Visipaque 320) 100 ml STK-MED ONCE .ROUTE ; Start 04/23/17 at 09:23; Stop 04/23/17 at 09:24; Status DC Cefazolin Sodium 50 ml @ 100 mls/hr 1X ONCE IV Last administered on t 07:43; Start 04/23/17 at 09:30; Stop 04/23/17 at 09:59; Status DC Heparin Sodium (Porcine) (Heparin Sodium) 10,000 unit STK-MED ONCE .ROUTE ; Start 04/23/17 at 10:33; Stop 04/23/17 at 10:34; Status DC Fentanyl Citrate (Fentanyl 2ml Vial) 100 mcg STK-MED ONCE .ROUTE ; Start at 10:33; Stop 04/23/17 at 10:34; Status DC Midazolam HCl (Versed) 2 mg STK-MED ONCE .ROUTE ; Start 04/23/17 at 10:33; Stop 04/23/17 at 10:34; Status DC Furosemide (Lasix) 100 mg STK-MED ONCE .ROUTE ; Start 04/23/17 at 10:49; Stop at 10:50; Status DC Heparin Sodium/ Sodium Chloride 1,000 unit 1X ONCE IART Last administered on 13:42; Start 04/23/17 at 11:00; Stop 04/23/17 at 11:05; Status DC Heparin Sodium/ Sodium Chloride 1,000 unit 1X ONCE IART Last administered on 13:42; Start 04/23/17 at 11:00; Stop 04/23/17 at 11:05; Status DC Midazolam HCl (Versed) 2 mg 1X ONCE IV Last administered on 04/23/17 13:39; Start 04/23/17 at 11:00; Stop 04/23/17 at 11:05; Status DC Fentanyl Citrate (Fentanyl 2ml Vial) 100 mcg 1X ONCE IV Last administered on 13:40; Start 04/23/17 at 11:00; Stop 04/23/17 at 11:05; Status DC Iodixanol (Visipaque 320) 100 ml 1X ONCE IART Last administered on 04/23/17 13:40; Start 04/23/17 at 11:00; Stop 04/23/17 at 11:05; Status DC Lidocaine HCl 20 ml 1X ONCE IJ Last administered on 04/23/17 13:41; Start at 11:00; Stop 04/23/17 at 11:05; Status DC Furosemide (Lasix) 40 mg 1X ONCE IVP ; Start 04/23/17 at 11:00; Stop 04/23/17 at 11:01; Status Cancel Info (Do NOT chart on this entry -- for MONITORING) 1 each PRN DAILY PRN MC SEE COMMENTS; Start 04/23/17 at 11:15; Stop 04/25/17 at 11:14 Norepinephrine Bitartrate 250 ml @ As Directed STK-MED ONCE IV ; Start at 11:17; Stop 04/23/17 at 11:18; Status DC Heparin Sodium/ Sodium Chloride 500 ml @ As Directed STK-MED ONCE .ROUTE ; Start 04/23/17 at 11:24; Stop 04/23/17 at 11:25; Status DC Fentanyl Citrate (Fentanyl 2ml Vial) 100 mcg STK-MED ONCE .ROUTE ; Start at 12:19; Stop 04/23/17 at 12:20; Status DC Midazolam HCl (Versed) 2 mg STK-MED ONCE .ROUTE ; Start 04/23/17 at 12:19; Stop 04/23/17 at 12:20; Status DC Norepinephrine Bitartrate 250 ml @ 0 mls/hr CONT PRN IV SEE I/O RECORD Last administered on 04/23/17 13:45; Start 04/23/17 at 11:23 Propofol 100 ml @ 0 mls/hr CONT PRN IV SEE I/O RECORD Last administered on 04/23 13:49; Start 04/23/17 at 11:35 Heparin Sodium (Porcine) (Heparin Sodium) 8,000 unit 1X ONCE IV Last administered on 04/23/17 13:44; Start 04/23/17 at 11:09; Stop 04/23/17 at 12:28 ; Status DC Midazolam HCl (Versed) 2 mg STK-MED ONCE .ROUTE ; Start 04/23/17 at 12:29; Stop 04/23/17 at 12:30; Status DC Midazolam HCl (Versed) 2 mg STK-MED ONCE .ROUTE ; Start 04/23/17 at 12:44; Stop 04/23/17 at 12:45; Status DC Midazolam HCl 100 ml @ 0 mls/hr CONT PRN IV SEE I/O RECORD Last administered on 04/23/17 21:50; Start 04/23/17 at 13:00 Succinylcholine Chloride (Anectine) 100 mg 1X ONCE IV Last administered on 13:44; Start 04/23/17 at 12:16; Stop 04/23/17 at 13:07; Status DC Tirofiban/Sodium Chloride 100 ml @ 0 mls/hr 1X ONCE IV Last administered on 13:38; Start 04/23/17 at 13:15; Stop 04/23/17 at 13:20; Status DC Iodixanol (Visipaque 320) 100 ml STK-MED ONCE .ROUTE ; Start 04/23/17 at 12:56; Stop 04/23/17 at 13:20; Status DC Tirofiban/Sodium Chloride 100 ml @ As Directed STK-MED ONCE IV ; Start at 13:10; Stop 04/23/17 at 13:20; Status DC Midazolam HCl (Versed) 2 mg STK-MED ONCE .ROUTE ; Start 04/23/17 at 13:26; Stop 04/23/17 at 13:27; Status DC Furosemide (Lasix) 40 mg 1X ONCE IVP Last administered on 04/23/17 10:53; Start 04/23/17 at 14:00; Stop 04/23/17 at 14:01; Status DC Clopidogrel Bisulfate (Plavix) 75 mg STK-MED ONCE .ROUTE ; Start 04/23/17 at 14: 08; Stop 04/23/17 at 14:09; Status DC Clopidogrel Bisulfate (Plavix) 300 mg 1X ONCE PO Last administered on 14:15; Start 04/23/17 at 14:15; Stop 04/23/17 at 14:29; Status DC Midazolam HCl (Versed) 1 mg 1X ONCE IV Last administered on 04/23/17 13:28; Start 04/23/17 at 13:28; Stop 04/23/17 at 14:32; Status DC Lidocaine/ Epinephrine (Xylocaine 1%-Epi 1:100,000) 20 ml 1X ONCE INJ Last administered on 04/23/17 18:41; Start 04/23/17 at 16:00; Stop 04/23/17 at 16:08 ; Status DC Active Scripts Active Reported Albuterol Sulfate Neb Soln (Albuterol Sulfate) 2.5 Mg/3 Ml Vial.neb 2.5 Mg NEB QID PRN Flomax (Tamsulosin Hcl) 0.4 Mg Cap.er.24h 2 Cap PO DAILY Lipitor (Atorvastatin Calcium) 40 Mg Tablet 1 Tab PO QHS Tylenol (Acetaminophen) 325 Mg Tablet 1-2 Tab PO Q6HRS PRN Vitals/I & O Vital Sign - Last 24 Hours 04/23/17 04/23/17 04/23/17 04/23/17 13:26 13:40 14:48 14:51 Pulse 101 Resp 20 20 Pulse Ox 100 100 O2 Delivery Ventilator Ventilator Ventilator Mechanical Ventilator 04/23/17 04/23/17 04/23/17 04/23/17 15:00 15:11 15:51 15:57 Temp 98.5 98.5 98.5 98.5 Pulse 105 110 Resp 16 B/P (MAP) 129/97 (108) 122/95 (104) Pulse Ox 100 100 100 O2 Delivery Ventilator Ventilator Ventilator 04/23/17 04/23/17 04/23/17 04/23/17 16:17 17:00 17:05 18:08 Temp 98.5 98.5 98.5 98.5 Pulse 114 108 Resp 16 14 B/P (MAP) 118/91 (100) 118/91 (100) Pulse Ox 100 100 100 O2 Delivery Mechanical Ventilator Ventilator Ventilator Ventilator 04/23/17 04/23/17 04/23/17 04/23/17 18:11 19:00 19:30 20:00 Temp 98.5 98.8 98.5 98.8 Pulse 108 108 108 Resp 14 14 14 B/P (MAP) 109/80 (90) 108/78 (88) 110/79 (89) Pulse Ox 100 100 99 100 O2 Delivery Ventilator Ventilator Ventilator Ventilator 04/23/17 04/23/17 04/23/17 04/23/17 20:00 21:00 21:20 21:51 Pulse 108 Resp 14 16 B/P (MAP) 99/78 (85) Pulse Ox 100 99 100 O2 Delivery Mechanical Ventilator Ventilator Ventilator Ventilator 04/23/17 04/23/17 04/23/17 04/23/17 22:00 22:13 23:00 23:20 Pulse 80 74 Resp 14 14 14 B/P (MAP) 96/69 (78) 93/63 (73) Pulse Ox 100 100 98 97 O2 Delivery Ventilator Ventilator Ventilator Ventilator 04/24/17 04/24/17 04/24/17 04/24/17 00:00 00:00 00:55 01:00 Temp 98.8 98.8 Pulse 76 77 Resp 14 14 B/P (MAP) 105/67 (80) 101/62 (75) Pulse Ox 96 96 98 O2 Delivery Mechanical Ventilator Ventilator Ventilator Ventilator 04/24/17 04/24/17 04/24/17 04/24/17 02:00 02:18 02:45 03:00 Pulse 77 74 Resp 14 14 14 B/P (MAP) 92/60 (71) 96/74 (81) Pulse Ox 96 100 96 98 O2 Delivery Ventilator Ventilator Ventilator Ventilator 6/27/17 04/24/17 04/24/17 04/24/17 04:00 04:00 05:00 05:10 Temp 98.7 98.7 Pulse 77 78 Resp 14 14 B/P (MAP) 91/59 (70) 92/64 (73) Pulse Ox 97 98 96 O2 Delivery Ventilator Mechanical Ventilator Ventilator Ventilator 04/24/17 04/24/17 04/24/17 04/24/17 05:49 06:00 06:19 07:00 Temp 98.7 98.7 Pulse 78 78 Resp 14 14 14 16 B/P (MAP) 104/78 (87) 85/62 (70) Pulse Ox 98 96 98 98 O2 Delivery Ventilator Ventilator Ventilator Ventilator 04/24/17 04/24/17 04/24/17 04/24/17 07:25 07:53 07:59 08:55 Temp 98.7 98.7 Pulse 78 Resp 18 B/P (MAP) 92/62 (72) Pulse Ox 96 96 O2 Delivery Ventilator Mechanical Ventilator Ventilator Ventilator 04/24/17 04/24/17 04/24/17 09:01 09:36 10:03 Temp 98.7 98.7 98.7 98.7 Pulse 85 81 Resp 16 16 B/P (MAP) 103/65 (78) 101/64 (76) Pulse Ox 97 97 96 O2 Delivery Ventilator Intake and Output 04/23/17 04/23/17 04/24/17 15:00 23:00 07:00 Intake Total 100 ml 0 ml 521.1 ml Output Total 1000 ml 1875 ml Balance -900 ml 0 ml -1353.9 ml KRISTEL HUERTA MD Apr 24, 2017 10:19
--- NOTE | 2017-04-24 12:04 | PDOC ---
MARTI VERDUGO PATIENT TRANSPORTER 04/24/17 1204: CARDIO Progress Notes Date and Time Date of Service 04/24/17 Time of Evaluation 1110 Subjective Subjective: Other (intubated, follows commands ) Comments: no acute events overnight Vitals Vitals Vital Signs Date Time Temp Pulse Resp B/P (MAP) Pulse Ox O2 Delivery O2 Flow Rate FiO2 04/24/17 11:00 98.7 81 16 100/65 (77) 96 98.7 04/24/17 09:36 Ventilator 04/23/17 10:01 2 Weight Weight [ ] Input and Output Intake and Output Intake and Output 04/24/17 07:00 Intake Total 621.1 ml Output Total 2875 ml Balance -2253.9 ml Intake Oral 0 ml IV Total 277.1 ml Other 344 ml Output Urine Total 2875 ml Estimated Blood Loss 0 ml Laboratory Labs Laboratory Tests Test 04/23/17 12:04 04/23/17 13:09 04/23/17 15:40 04/24/17 08:30 Activated Clotting Time 233 sec (92-181) 217 sec (92-181) O2 Saturation 98 % (92-99) 94 % (92-99) Arterial Blood pH 7.50 (7.35-7.45) 7.48 (7.35-7.45) Arterial Blood pCO2 at Patient Temp 38 mmHg (35-46) 40 mmHg (35-46) Arterial Blood pO2 at Patient Temp 129 mmHg (65-108) 71 mmHg (65-108) Arterial Blood HCO3 28 mmol/L (21-28) 29 mmol/L (21-28) Arterial Blood Base Excess 5 mmol/L (-3-3) 5 mmol/L (-3-3) FiO2 40 30 Test 04/24/17 09:30 O2 Saturation 95 % (92-99) Arterial Blood pH 7.44 (7.35-7.45) Arterial Blood pCO2 at Patient Temp 46 mmHg (35-46) Arterial Blood pO2 at Patient Temp 74 mmHg (65-108) Arterial Blood HCO3 31 mmol/L (21-28) Arterial Blood Base Excess 6 mmol/L (-3-3) FiO2 30 Microbiology Micro Microbiology 04/19/17 Urine Culture - Final, Complete 04/19/17 Urine Culture Result 1 (KATHY) - Final, Complete 04/19/17 Antimicrobic Susceptibility - Final, Complete Physical Exam HEENT: Neck Supple W Full Motion, Other (intubated ) Chest: Symmetric LUNGS: Other (diminished bases ) Heart: S1S2, RRR, other (distant heart tones ) Abdomen: Soft N/T Extremities: 2+ Dorsalis Pedis, No Edema Neurology: alert, follow commands Assessment Assessment 1. NSTEMI 2. 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 Acute on chronic combined systolic and diastolic heart failure 4. ICM; LVEF 15-20% 5. Hyperlipidemia Recommendations Continue secondary prevention including DAPT with ASA and Plavix Off pressor support. Resume lasix and BB when consistently adequate. No LEI with hypotension; may need to re-evaluate ability to tolerate on an outpatient basis. Extubate today as able. Continue supportive care MATHEW CHIU MD 04/24/17 2231: CARDIO Progress Notes Plan Plan Pt. seen and examined. Agree with above PREPARATION ROOM MANAGER note. No acute events overnight. This a.m. was extubated. has been off all pressors. Breathing improved, less tachypneic. UOP adequate. Labs to be drawn in a.m. Will monitor. Current meds reviewed and adequate. MARTI VERDUGO APRN Apr 24, 2017 12:04 MATHEW CHIU MD Apr 24, 2017 22:31
--- NOTE | 2017-04-24 15:01 | PDOC2 ---
Pulmonary Consultation Medical History Medications Current Medications Heparin Sodium/ Dextrose 500 ml @ 0 mls/hr CONT PRN IV SEE I/O RECORD Last administered on 04/19/17 12:43; Start 04/19/17 at 01:15; Stop 04/20/17 at 11:58 ; Status DC Heparin Sodium (Porcine) (Heparin Sodium) 2,300 unit PRN Q6HRS PRN IV FOR UFH LEVEL LESS THAN 0.2; Start 04/19/17 at 01:15; Stop 04/20/17 at 11:58; Status DC Morphine Sulfate 2 mg PRN Q2HR PRN IV PAIN Last administered on 04/24/17 05:49 ; Start 04/19/17 at 02:15 Acetaminophen (Tylenol) 650 mg PRN Q6HRS PRN PO ARTHRITIS; Start 04/19/17 at 02 :30; Stop 04/19/17 at 08:07; Status DC Albuterol Sulfate (Ventolin Neb Soln) 2.5 mg PRN QID PRN NEB ASTHMA; Start at 02:30 Atorvastatin Calcium (Lipitor) 40 mg QHS PO Last administered on 04/22/17 21: 26; Start 04/19/17 at 21:00 Tamsulosin HCl (Flomax) 0.8 mg DAILY PO Last administered on 04/24/17 09:00; Start 04/19/17 at 09:00 Ondansetron HCl (Zofran) 4 mg PRN Q6HRS PRN IV NAUSEA/VOMITING; Start 04/19/17 at 03:15 Acetaminophen (Tylenol) 500 mg PRN Q6HRS PRN PO MILD PAIN / TEMP; Start at 08:00 Furosemide (Lasix) 40 mg 1X ONCE IVP Last administered on 04/19/17 12:41; Start 04/19/17 at 10:00; Stop 04/19/17 at 10:05; Status DC Iohexol (Omnipaque 300 Mg/ml) 100 ml STK-MED ONCE .ROUTE ; Start 04/19/17 at 10: 56; Stop 04/19/17 at 10:57; Status DC Heparin Sodium/ Sodium Chloride 1,500 ml @ As Directed STK-MED ONCE .ROUTE ; Start 04/19/17 at 10:56; Stop 04/19/17 at 10:57; Status DC Lidocaine HCl 20 ml STK-MED ONCE .ROUTE ; Start 04/19/17 at 10:56; Stop at 10:57; Status DC Lidocaine HCl 20 ml STK-MED ONCE .ROUTE ; Start 04/19/17 at 10:58; Stop at 10:59; Status DC Nitroglycerin (Nitroglycerin) 200 mcg STK-MED ONCE .ROUTE ; Start 04/19/17 at 11 :01; Stop 04/19/17 at 11:02; Status DC Verapamil HCl (Verapamil) 5 mg STK-MED ONCE .ROUTE ; Start 04/19/17 at 11:01; Stop 04/19/17 at 11:02; Status DC Heparin Sodium (Porcine) (Heparin Sodium) 10,000 unit STK-MED ONCE .ROUTE ; Start 04/19/17 at 11:01; Stop 04/19/17 at 11:02; Status DC Fentanyl Citrate (Fentanyl 2ml Vial) 100 mcg STK-MED ONCE .ROUTE ; Start at 11:02; Stop 04/19/17 at 11:03; Status DC Midazolam HCl (Versed) 2 mg STK-MED ONCE .ROUTE ; Start 04/19/17 at 11:02; Stop 04/19/17 at 11:03; Status DC Nitroglycerin (Nitroglycerin) 200 mcg 1X ONCE IART Last administered on 12:12; Start 04/19/17 at 11:45; Stop 04/19/17 at 11:46; Status DC Verapamil HCl (Verapamil) 2.5 mg 1X ONCE IART Last administered on 04/19/17 12:12; Start 04/19/17 at 11:45; Stop 04/19/17 at 11:46; Status DC Heparin Sodium/ Sodium Chloride 1,000 unit 1X ONCE IART Last administered on 12:05; Start 04/19/17 at 11:45; Stop 04/19/17 at 11:46; Status DC Heparin Sodium/ Sodium Chloride 1,000 unit 1X ONCE IART Last administered on 12:05; Start 04/19/17 at 11:45; Stop 04/19/17 at 11:46; Status DC Midazolam HCl (Versed) 2 mg 1X ONCE IV Last administered on 04/19/17 12:13; Start 04/19/17 at 11:45; Stop 04/19/17 at 11:46; Status DC Fentanyl Citrate (Fentanyl 2ml Vial) 100 mcg 1X ONCE IV Last administered on 12:13; Start 04/19/17 at 11:45; Stop 04/19/17 at 11:46; Status DC Iohexol (Omnipaque 300 Mg/ml) 100 ml 1X ONCE IART Last administered on 12:05; Start 04/19/17 at 11:45; Stop 04/19/17 at 11:46; Status DC Lidocaine HCl 20 ml 1X ONCE IJ Last administered on 04/19/17 12:05; Start at 11:45; Stop 04/19/17 at 11:46; Status DC Info (Do NOT chart on this entry -- for MONITORING) 1 each PRN DAILY PRN MC SEE COMMENTS; Start 04/19/17 at 11:45; Stop 04/21/17 at 11:44; Status DC Milrinone Lactate/ Dextrose 100 ml @ 0 mls/hr CONT PRN IV SEE I/O RECORD Last administered on 04/22/17 17:07; Start 04/19/17 at 12:00 Furosemide (Lasix) 60 mg 1X ONCE IVP Last administered on 04/19/17 16:10; Start 04/19/17 at 15:45; Stop 04/19/17 at 15:46; Status DC Ceftriaxone Sodium 1 gm/ Sodium Chloride 50 ml @ 100 mls/hr Q24H IV Last administered on 04/24/17 13:32; Start 04/20/17 at 10:00 Furosemide (Lasix) 60 mg 1X ONCE IVP Last administered on 04/20/17 13:01; Start 04/20/17 at 12:00; Stop 04/20/17 at 12:01; Status DC Aspirin (Ecotrin) 81 mg DAILYWBKFT PO Last administered on 04/22/17 08:39; Start 04/20/17 at 12:00 Carvedilol (Coreg) 3.125 mg BIDWMEALS PO Last administered on 04/23/17 07:05; Start 04/20/17 at 17:00 Clopidogrel Bisulfate (Plavix) 300 mg 1X ONCE PO Last administered on 09:26; Start 04/21/17 at 08:45; Stop 04/21/17 at 08:46; Status DC Clopidogrel Bisulfate (Plavix) 75 mg DAILYWBKFT PO Last administered on 08:00; Start 04/22/17 at 08:00 Potassium Citrate (Urocit-K) 60 meq 1X ONCE PO Last administered on 04/21/17 09:26; Start 04/21/17 at 08:45; Stop 04/21/17 at 08:48; Status DC Furosemide (Lasix) 40 mg DAILY PO Last administered on 04/24/17 09:00; Start 04/22/17 at 09:00 Furosemide (Lasix) 40 mg 1X ONCE PO Last administered on 04/21/17 09:25; Start 04/21/17 at 09:00; Stop 04/21/17 at 09:01; Status DC Propofol 20 ml @ As Directed STK-MED ONCE IV ; Start 04/23/17 at 06:45; Stop at 06:46; Status DC Lidocaine HCl (Lidocaine Pf 2% Vial) 5 ml STK-MED ONCE .ROUTE ; Start 04/23/17 at 06:45; Stop 04/23/17 at 06:46; Status DC Ondansetron HCl (Zofran) 4 mg STK-MED ONCE .ROUTE ; Start 04/23/17 at 06:45; Stop 04/23/17 at 06:46; Status Cancel Dexamethasone Sodium Phosphate (Decadron) 20 mg STK-MED ONCE .ROUTE ; Start at 06:45; Stop 04/23/17 at 06:46; Status DC Cefazolin Sodium 50 ml @ As Directed STK-MED ONCE IV ; Start 04/23/17 at 07:21; Stop 04/23/17 at 07:22; Status DC Lidocaine HCl (Glydo (Lidocaine) Jelly) 6 mehreen STK-MED ONCE .ROUTE Last administered on 04/23/17 08:09; Start 04/23/17 at 07:32; Stop 04/23/17 at 07:33 ; Status DC Ringer's Solution 1,000 ml @ 75 mls/hr 1X ONCE IV Last administered on 6/26/ 17at 07:37; Start 04/23/17 at 07:45; Stop 04/23/17 at 21:04; Status DC Ondansetron HCl (Zofran) 4 mg PRN Q6HRS PRN IV NAUSEA/VOMITING; Start 04/23/17 at 08:00; Stop 04/23/17 at 18:00; Status DC Fentanyl Citrate (Fentanyl 2ml Vial) 25 mcg PRN Q5MIN PRN IV MILD PAIN; Start 04/23/17 at 08:00; Stop 04/23/17 at 18:00; Status DC Fentanyl Citrate (Fentanyl 2ml Vial) 50 mcg PRN Q5MIN PRN IV MODERATE PAIN; Start 04/23/17 at 08:00; Stop 04/23/17 at 18:00; Status DC Morphine Sulfate 1 mg PRN Q10MIN PRN IV SEVERE PAIN; Start 04/23/17 at 08:00; Stop 04/23/17 at 18:00; Status DC Ringer's Solution 1,000 ml @ 30 mls/hr Q24H IV ; Start 04/23/17 at 07:58; Stop 04/23/17 at 19:57; Status DC Lidocaine HCl 2 ml PRN 1X PRN ID PRIOR TO IV START; Start 04/23/17 at 08:00; Stop 04/23/17 at 18:00; Status DC Hydromorphone HCl (Dilaudid) 0.5 mg PRN Q10MIN PRN IV SEV PAIN, Second choice; Start 04/23/17 at 08:00; Stop 04/23/17 at 18:00; Status DC Prochlorperazine Edisylate (Compazine) 5 mg PACU PRN PRN IV NAUSEA, MRX1; Start 04/23/17 at 08:00; Stop 04/23/17 at 18:00; Status DC Midazolam HCl (Versed) 2 mg STK-MED ONCE .ROUTE ; Start 04/23/17 at 08:19; Stop 04/23/17 at 08:20; Status DC Iohexol (Omnipaque 300 Mg/ml) 50 ml STK-MED ONCE .ROUTE Last administered on t 08:55; Start 04/23/17 at 08:36; Stop 04/23/17 at 08:37; Status DC Phenylephrine HCl 1 mg STK-MED ONCE IV ; Start 04/23/17 at 09:18; Stop 04/23/17 at 09:19; Status DC Lidocaine HCl 20 ml STK-MED ONCE .ROUTE ; Start 04/23/17 at 09:22; Stop at 09:23; Status DC Heparin Sodium/ Sodium Chloride 1,000 ml @ As Directed STK-MED ONCE .ROUTE ; Start 04/23/17 at 09:23; Stop 04/23/17 at 09:24; Status DC Iodixanol (Visipaque 320) 100 ml STK-MED ONCE .ROUTE ; Start 04/23/17 at 09:23; Stop 04/23/17 at 09:24; Status DC Cefazolin Sodium 50 ml @ 100 mls/hr 1X ONCE IV Last administered on t 07:43; Start 04/23/17 at 09:30; Stop 04/23/17 at 09:59; Status DC Heparin Sodium (Porcine) (Heparin Sodium) 10,000 unit STK-MED ONCE .ROUTE ; Start 04/23/17 at 10:33; Stop 04/23/17 at 10:34; Status DC Fentanyl Citrate (Fentanyl 2ml Vial) 100 mcg STK-MED ONCE .ROUTE ; Start at 10:33; Stop 04/23/17 at 10:34; Status DC Midazolam HCl (Versed) 2 mg STK-MED ONCE .ROUTE ; Start 04/23/17 at 10:33; Stop 04/23/17 at 10:34; Status DC Furosemide (Lasix) 100 mg STK-MED ONCE .ROUTE ; Start 04/23/17 at 10:49; Stop at 10:50; Status DC Heparin Sodium/ Sodium Chloride 1,000 unit 1X ONCE IART Last administered on 13:42; Start 04/23/17 at 11:00; Stop 04/23/17 at 11:05; Status DC Heparin Sodium/ Sodium Chloride 1,000 unit 1X ONCE IART Last administered on 13:42; Start 04/23/17 at 11:00; Stop 04/23/17 at 11:05; Status DC Midazolam HCl (Versed) 2 mg 1X ONCE IV Last administered on 04/23/17 13:39; Start 04/23/17 at 11:00; Stop 04/23/17 at 11:05; Status DC Fentanyl Citrate (Fentanyl 2ml Vial) 100 mcg 1X ONCE IV Last administered on 13:40; Start 04/23/17 at 11:00; Stop 04/23/17 at 11:05; Status DC Iodixanol (Visipaque 320) 100 ml 1X ONCE IART Last administered on 04/23/17 13:40; Start 04/23/17 at 11:00; Stop 04/23/17 at 11:05; Status DC Lidocaine HCl 20 ml 1X ONCE IJ Last administered on 04/23/17 13:41; Start at 11:00; Stop 04/23/17 at 11:05; Status DC Furosemide (Lasix) 40 mg 1X ONCE IVP ; Start 04/23/17 at 11:00; Stop 04/23/17 at 11:01; Status Cancel Info (Do NOT chart on this entry -- for MONITORING) 1 each PRN DAILY PRN MC SEE COMMENTS; Start 04/23/17 at 11:15; Stop 04/25/17 at 11:14 Norepinephrine Bitartrate 250 ml @ As Directed STK-MED ONCE IV ; Start at 11:17; Stop 04/23/17 at 11:18; Status DC Heparin Sodium/ Sodium Chloride 500 ml @ As Directed STK-MED ONCE .ROUTE ; Start 04/23/17 at 11:24; Stop 04/23/17 at 11:25; Status DC Fentanyl Citrate (Fentanyl 2ml Vial) 100 mcg STK-MED ONCE .ROUTE ; Start at 12:19; Stop 04/23/17 at 12:20; Status DC Midazolam HCl (Versed) 2 mg STK-MED ONCE .ROUTE ; Start 04/23/17 at 12:19; Stop 04/23/17 at 12:20; Status DC Norepinephrine Bitartrate 250 ml @ 0 mls/hr CONT PRN IV SEE I/O RECORD Last administered on 04/23/17 13:45; Start 04/23/17 at 11:23 Propofol 100 ml @ 0 mls/hr CONT PRN IV SEE I/O RECORD Last administered on 04/23 13:49; Start 04/23/17 at 11:35 Heparin Sodium (Porcine) (Heparin Sodium) 8,000 unit 1X ONCE IV Last administered on 04/23/17 13:44; Start 04/23/17 at 11:09; Stop 04/23/17 at 12:28 ; Status DC Midazolam HCl (Versed) 2 mg STK-MED ONCE .ROUTE ; Start 04/23/17 at 12:29; Stop 04/23/17 at 12:30; Status DC Midazolam HCl (Versed) 2 mg STK-MED ONCE .ROUTE ; Start 04/23/17 at 12:44; Stop 04/23/17 at 12:45; Status DC Midazolam HCl 100 ml @ 0 mls/hr CONT PRN IV SEE I/O RECORD Last administered on 04/23/17 21:50; Start 04/23/17 at 13:00 Succinylcholine Chloride (Anectine) 100 mg 1X ONCE IV Last administered on 13:44; Start 04/23/17 at 12:16; Stop 04/23/17 at 13:07; Status DC Tirofiban/Sodium Chloride 100 ml @ 0 mls/hr 1X ONCE IV Last administered on 13:38; Start 04/23/17 at 13:15; Stop 04/23/17 at 13:20; Status DC Iodixanol (Visipaque 320) 100 ml STK-MED ONCE .ROUTE ; Start 04/23/17 at 12:56; Stop 04/23/17 at 13:20; Status DC Tirofiban/Sodium Chloride 100 ml @ As Directed STK-MED ONCE IV ; Start at 13:10; Stop 04/23/17 at 13:20; Status DC Midazolam HCl (Versed) 2 mg STK-MED ONCE .ROUTE ; Start 04/23/17 at 13:26; Stop 04/23/17 at 13:27; Status DC Furosemide (Lasix) 40 mg 1X ONCE IVP Last administered on 04/23/17 10:53; Start 04/23/17 at 14:00; Stop 04/23/17 at 14:01; Status DC Clopidogrel Bisulfate (Plavix) 75 mg STK-MED ONCE .ROUTE ; Start 04/23/17 at 14: 08; Stop 04/23/17 at 14:09; Status DC Clopidogrel Bisulfate (Plavix) 300 mg 1X ONCE PO Last administered on 14:15; Start 04/23/17 at 14:15; Stop 04/23/17 at 14:29; Status DC Midazolam HCl (Versed) 1 mg 1X ONCE IV Last administered on 04/23/17 13:28; Start 04/23/17 at 13:28; Stop 04/23/17 at 14:32; Status DC Lidocaine/ Epinephrine (Xylocaine 1%-Epi 1:100,000) 20 ml 1X ONCE INJ Last administered on 04/23/17 18:41; Start 04/23/17 at 16:00; Stop 04/23/17 at 16:08 ; Status DC Active Scripts Active Reported Albuterol Sulfate Neb Soln (Albuterol Sulfate) 2.5 Mg/3 Ml Vial.neb 2.5 Mg NEB QID PRN Flomax (Tamsulosin Hcl) 0.4 Mg Cap.er.24h 2 Cap PO DAILY Lipitor (Atorvastatin Calcium) 40 Mg Tablet 1 Tab PO QHS Tylenol (Acetaminophen) 325 Mg Tablet 1-2 Tab PO Q6HRS PRN Allergies Allergies Coded Allergies Type Severity Reaction Last Updated Verified aspirin Adverse Reaction Intermediate Nausea 04/23/17 Yes Social History RESIDE AT [facility] Vital Signs Vital Signs Date Time Temp Pulse Resp B/P (MAP) Pulse Ox O2 Delivery O2 Flow Rate FiO2 04/24/17 14:00 84 18 113/68 (83) 97 Nasal Cannula 3.0 04/24/17 12:09 98.7 98.7 Last Labs Laboratory Tests Test 04/23/17 15:40 04/24/17 08:30 04/24/17 09:30 O2 Saturation 98 % (92-99) 94 % (92-99) 95 % (92-99) Arterial Blood pH 7.50 (7.35-7.45) 7.48 (7.35-7.45) 7.44 (7.35-7.45) Arterial Blood pCO2 at Patient Temp 38 mmHg (35-46) 40 mmHg (35-46) 46 mmHg (35-46) Arterial Blood pO2 at Patient Temp 129 mmHg (65-108) 71 mmHg (65-108) 74 mmHg (65-108) Arterial Blood HCO3 28 mmol/L (21-28) 29 mmol/L (21-28) 31 mmol/L (21-28) Arterial Blood Base Excess 5 mmol/L (-3-3) 5 mmol/L (-3-3) 6 mmol/L (-3-3) FiO2 40 30 30 Assessment HARSHA OTOOLE MD Apr 24, 2017 15:01
--- NOTE | 2017-04-24 18:13 | CARD ---
APPROVED REPORT Procedure(s) performed: Left heart catheterization Impella insertion - Assistance with cardiac output using Impeller Pump, Continous [id number] PTCA/PCI of the Left main PTCA/PCI of the LAD chronic total occlusion. PTCA of LCx. Moderate sedation 100 minutes HISTORY The patient is a 66 year-old male with a history of : coronary artery disease, hypertension, dyslipid emia. INDICATION The indication(s) include : Patient is a 66 y.o male who presented with an NSTEMI and then developed cardiogenic shock requiring intubation and severe ischemic cardiomyopathy with an EF of 20%. , SKILLED NURSING: I 50.21 - Acute systolic heart failure, SKILLED NURSING: R 57.0 Cardiogenic Shock. PROCEDURE NARRATIVE The patient was brought to the catheterization lab from the preanesthesia care unit after undergoing a cystoscopy. Upon arrival to the [facility] he was noted to be severely tachypneic while supine. His b lood pressure dropped and required initiation of vasopressors. Ultimately the decision was made to in tubate the patient for airway protection and acute respiratory failure secondary to cardiogenic shock and volume overload. Through the intubation. Patient remained hypotensive and emergently bilateral g roin access was obtained via the modified Seldinger technique and an 18-gauge needle and a J-tipped g uidewire. In the right common femoral artery a 8 Indian sheath was inserted. In the left common femor al artery a 6 Indian sheath was initially inserted over which to preclosed suture devices were placed in a crisscross fashion and subsequently the 5 Indian sheath was removed and the left groin sheath w as upsized to a 14 Indian sheath for hemodynamic support insertion. Next, a 5 Indian pigtail catheter was placed in the left ventricle and hemodynamics were measured. Th e LVEDP was elevated at 40 mmHg. Subsequently, a 0.018 inch wire was placed in the left ventricle wit h a pre-fashion curve with the pigtail removed the hemodynamic support device (Impella CP) was then a dvanced to the left ventricle and appropriate flows were obtained. Next limited diagnostic angiograp hy of the right coronary artery confirmed previous 50-60% eccentric stenosis. Subsequently the attent ion was then turned to the left main and LAD chronic total occlusion. Heparin only was used frantic r egulation for a goal ACT of greater than 250. The patient had already received aspirin and Plavix. Through an 8 Indian EBU 3.75 guide catheter a 0.014 inch pro-water wire was initially used to andrez e the proximal aspect of the left anterior descending artery. Next a Corsair catheter was used for eng pport through which a airplane pilot helper 200 wire was used to cross the chronic total occlusion of the left anteri or descending artery. Intraluminal placement was confirmed with contrast injection. Next, the airplane pilot helper w ofelia was switched to a pro-water. Subsequently sequential balloon angioplasty was performed using a 2.0 x 15 mm balloon. Repeat angiopl asty was then performed with a 2.5 x 30 mm balloon. Finally the left main and ostial LAD stenosis was angioplastied with a 3.0 x 15 mm balloon. Next, a XAPPmedia IVUS catheter was used to determine the ve ssel size of the LAD and left main. The proximal and mid LAD was then stented with a 3.0 x 38 mm Xien ce MAHSA at 14 leila. then in an overlapping fashion a 3.5 x 28 mm stent was placed from the LAD into the mid left main covering the ostium of the left circumflex. The overlap segment and the proximal stent were then postdilated with a noncompliant 4.0 x 12 mm balloon. Post-PCI angiography demonstrated exc ellent stent expansion with LIYAH-3 flow in the LAD. The ostial left circumflex was noted to be narrow ed due to plaque shift of approximately 60-70%. Therefore a pro-water wire was then used to cross fro m the left main into the circumflex through the stent struts. Balloon angioplasty was then performed with a 2.0 x 12 mm balloon at nominal pressures. Final kissing balloon angioplasty was then performed with a 3.0 x 15 mm balloon in the left main and LAD and the 2.0 mm balloon in the ostial left circum flex. Post angioplasty there was resolution of the stenosis with LIYAH-3 flow in the left circumflex. Attention was then turned to the RCA stenosis. The EBU 3.75 guide catheter was removed and the hemati nics support was slowly decreased. The patient had been given 40 mg of IV Lasix and had approximately 1.5 L of urine output with improvement in hemodynamics and stabilization of oxygenation. Through a 6 Indian JR4 guide catheter a 0.014 inch XAPPmedia pressure wire was advanced to the distal RCA and and IFR measurement was made and this was within normal limits. Therefore the moderate stenosis in the RC A was not intervened upon. The left groin sheath was then removed after the hemodynamic support was discontinued and the previou sly deployed preclosed sutures were then tied down with good hemostasis being achieved. The right carolyn in sheath was then removed with a 8 Indian Angio-Seal device. The patient tolerated the procedure wel l and he was transported to the ICU in stable condition. Conclusion 1. Cardiogenic shock 2. Successful PCI of the LM/LAD with insertion of overlapping Xience 3.5/28 and 3.0/38 MAHSA, post-dila lillian proximally to a 4.0 mm vessel. 3. Successful insertion of Impella CP device for cardiogenic shock. 4. Successful closure of the right and left femoral arteriotomies with an Angioseal and Preclose sutu re devices. 5. IVUS Of the LM and LAD 6. Negative iFR of the RCA. Recommendations ASA 81mg daily Plavix 75mg daily Wean levophed and extubate as tolerated in the next 24 hours.
[2017-04-24] MEDS: ACETAMINOPHEN 500 MG TABLET PO PRN (21:35)
[2017-04-24] MEDS: ATORVASTATIN CALCIUM 40 MG TABLET. PO SCH (21:35)
[2017-04-25 03:30] VITALS: BP 104/68
[2017-04-25 06:56] LABS: CALCIUM 8.5 mg/dL (8.5-10.1); CREATININE 0.8 mg/dL (0.7-1.3); GFR 116.3; MAGNESIUM 2.2 mg/dL (1.8-2.4); POTASSIUM 3.8 mmol/L (3.5-5.1)
[2017-04-25 07:02] LABS: ALBUMIN 2.8 g/dL (3.4-5.0); ALBUMIN/GLOBULIN RATIO 0.8 (1.0-1.7); CALCIUM 8.7 mg/dL (8.5-10.1); CREATININE 0.8 mg/dL (0.7-1.3); GFR 116.3; POTASSIUM 3.7 mmol/L (3.5-5.1); TOTAL BILIRUBIN 1.6 mg/dL (0.2-1.0); TOTAL PROTEIN 6.2 g/dL (6.4-8.2)
[2017-04-25 07:20] LABS: BASO % 1 % (0-3); EOS % 1 % (0-3); HEMATOCRIT 33.8 % (39.0-53.0); HEMOGLOBIN 10.8 g/dL (13.0-17.5); LYMPH % 14 % (24-48); MEAN CORPUSCULAR HEMOGLOBIN 27 pg (25-35); MEAN CORPUSCULAR HGB CONC 32 g/dL (31-37); MEAN CORPUSCULAR VOLUME 84 fL (79-100); MONO % 10 % (0-9); NEUT % 75 % (31-73); PLATELET COUNT 134 x10^3/uL (140-400); RED BLOOD COUNT 4.02 x10^6/uL (4.30-5.70); RED CELL DISTRIBUTION WIDTH 15.3 % (11.5-14.5); WHITE BLOOD COUNT 7.6 x10^3/uL (4.0-11.0)
[2017-04-25 07:32] VITALS: BP 96/67
--- NOTE | 2017-04-25 09:29 | RAD ---
Indication: Stent placement. Time of exam 0904 hours. Correlation is made with prior exam from one day earlier. The heart is enlarged but stable. The endotracheal tube and nasogastric tube have been removed. There continues to be some consolidation in the left base, obscuring the left hemidiaphragm. The right lung is clear. No significant effusion is seen. There is no pneumothorax. Impression: Extubation chest demonstrates continued consolidation in the left base, similar to exam from 1 day earlier.
[2017-04-25] MEDS: CARVEDILOL 3.125 MG TABLET. PO SCH ×3 (09:53→21:11)
[2017-04-25] MEDS: TAMSULOSIN 0.4 MG CAP.ER.24H. PO SCH (09:53)
[2017-04-25] MEDS: ASPIRIN ENTERIC COATED 81 MG TABLET.DR. PO SCH (09:54)
[2017-04-25] MEDS: FUROSEMIDE 40 MG TABLET. PO SCH (09:55)
[2017-04-25] MEDS: CLOPIDOGREL BISULFATE 75 MG TABLET PO SCH (09:55)
--- NOTE | 2017-04-25 09:58 | PDOC ---
CARDIO Progress Notes Date and Time Date of Service 04/25/17 Time of Evaluation 0936 Subjective Subjective: No Chest Pain, No shortness of breath, Other (concerned about having to go home wiht catheter ) Comments: no acute events overnight Vitals Vitals Vital Signs Date Time Temp Pulse Resp B/P (MAP) Pulse Ox O2 Delivery O2 Flow Rate FiO2 04/25/17 09:27 97 Nasal Cannula 2.0 04/25/17 07:32 97.6 78 19 96/67 (77) 97.6 Weight Weight [ ] Input and Output Intake and Output Intake and Output 04/25/17 07:00 Intake Total 730 ml Output Total 1870 ml Balance -1140 ml Intake Oral 730 ml Output Urine Total 1850 ml Gastric Drainage Total 20 ml Laboratory Labs Laboratory Tests Test 04/25/17 06:25 White Blood Count 7.6 x10^3/uL (4.0-11.0) Red Blood Count 4.02 x10^6/uL (4.30-5.70) Hemoglobin 10.8 g/dL (13.0-17.5) Hematocrit 33.8 % (39.0-53.0) Mean Corpuscular Volume 84 fL (79-100) Mean Corpuscular Hemoglobin 27 pg (25-35) Mean Corpuscular Hemoglobin Concent 32 g/dL (31-37) Red Cell Distribution Width 15.3 % (11.5-14.5) Platelet Count 134 x10^3/uL (140-400) Neutrophils (%) (Auto) 75 % (31-73) Lymphocytes (%) (Auto) 14 % (24-48) Monocytes (%) (Auto) 10 % (0-9) Eosinophils (%) (Auto) 1 % (0-3) Basophils (%) (Auto) 1 % (0-3) Neutrophils # (Auto) 5.7 x10^3uL (1.8-7.7) Lymphocytes # (Auto) 1.0 x10^3/uL (1.0-4.8) Monocytes # (Auto) 0.7 x10^3/uL (0.0-1.1) Eosinophils # (Auto) 0.1 x10^3/uL (0.0-0.7) Basophils # (Auto) 0.0 x10^3/uL (0.0-0.2) Sodium Level 140 mmol/L (136-145) Potassium Level 3.7 mmol/L (3.5-5.1) Chloride Level 102 mmol/L (98-107) Carbon Dioxide Level 32 mmol/L (21-32) Anion Gap 6 (6-14) Blood Urea Nitrogen 15 mg/dL (8-26) Creatinine 0.8 mg/dL (0.7-1.3) Estimated GFR (Cockcroft-Gault) 116.3 BUN/Creatinine Ratio 19 (6-20) Glucose Level 118 mg/dL (70-99) Calcium Level 8.7 mg/dL (8.5-10.1) Magnesium Level 2.2 mg/dL (1.8-2.4) Total Bilirubin 1.6 mg/dL (0.2-1.0) Aspartate Amino Transf (AST/SGOT) 33 U/L (15-37) Alanine Aminotransferase (ALT/SGPT) 83 U/L (16-63) Alkaline Phosphatase 81 U/L (46-116) Total Protein 6.2 g/dL (6.4-8.2) Albumin 2.8 g/dL (3.4-5.0) Albumin/Globulin Ratio 0.8 (1.0-1.7) Microbiology Micro Microbiology 04/19/17 Urine Culture - Final, Complete 04/19/17 Urine Culture Result 1 (KATHY) - Final, Complete 04/19/17 Antimicrobic Susceptibility - Final, Complete Physical Exam HEENT: Neck Supple W Full Motion Chest: Symmetric LUNGS: Other (diminished bases ) Heart: S1S2, RRR, other (tele: SR with occasional PVC's, soft systolic murmur ) Abdomen: Soft N/T Extremities: 2+ Dorsalis Pedis, No Edema Neurology: alert, oriented, follow commands Assessment Assessment 1. NSTEMI 2. 3V CAD; s/p PCI/MAHSA placement to LM/LAD 3. Acute on chronic combined systolic and diastolic heart failure; compensated 4. ICM; LVEF 15-20% 5. Hyperlipidemia Recommendations Doing well. Tolerating low-dose BB and diuretic therapy. Add daily potassium. Re-evaluate need for LEI on an outpatient basis Recheck echo in 3 months to evaluate need for AICD implantation in prevention of SCD. Continue secondary prevention including DAPT with ASA and Plavix Plan for discharge in MARTI Nayak APRN Apr 25, 2017 09:58
[2017-04-25 10:29] VITALS: BP 97/59
--- NOTE | 2017-04-25 12:02 | PDOC ---
PULMONARY PROGRESS NOTES Subjective PT WITH NO DISTRESS EXTUBATED 04/24 Vitals Vital Signs Date Time Temp Pulse Resp B/P (MAP) Pulse Ox O2 Delivery O2 Flow Rate FiO2 04/25/17 10:29 98.0 84 18 97/59 (72) 98 Nasal Cannula 2.0 98.0 ROS: No Nausea, No Chest Pain, No Abdominal Pain, No Increase Cough General: Alert Lungs: Clear Cardiovascular: S1, S2 Abdomen: Soft, Non-tender Neuro Exam: Alert, Oriented Extremities: No Edema Skin: Warm, Dry Labs Laboratory Tests Test 04/23/17 12:04 04/23/17 13:09 04/23/17 15:40 04/24/17 08:30 Activated Clotting Time 233 sec (92-181) 217 sec (92-181) O2 Saturation 98 % (92-99) 94 % (92-99) Arterial Blood pH 7.50 (7.35-7.45) 7.48 (7.35-7.45) Arterial Blood pCO2 at Patient Temp 38 mmHg (35-46) 40 mmHg (35-46) Arterial Blood pO2 at Patient Temp 129 mmHg (65-108) 71 mmHg (65-108) Arterial Blood HCO3 28 mmol/L (21-28) 29 mmol/L (21-28) Arterial Blood Base Excess 5 mmol/L (-3-3) 5 mmol/L (-3-3) FiO2 40 30 Test 04/24/17 09:30 04/25/17 06:25 O2 Saturation 95 % (92-99) Arterial Blood pH 7.44 (7.35-7.45) Arterial Blood pCO2 at Patient Temp 46 mmHg (35-46) Arterial Blood pO2 at Patient Temp 74 mmHg (65-108) Arterial Blood HCO3 31 mmol/L (21-28) Arterial Blood Base Excess 6 mmol/L (-3-3) FiO2 30 White Blood Count 7.6 x10^3/uL (4.0-11.0) Red Blood Count 4.02 x10^6/uL (4.30-5.70) Hemoglobin 10.8 g/dL (13.0-17.5) Hematocrit 33.8 % (39.0-53.0) Mean Corpuscular Volume 84 fL (79-100) Mean Corpuscular Hemoglobin 27 pg (25-35) Mean Corpuscular Hemoglobin Concent 32 g/dL (31-37) Red Cell Distribution Width 15.3 % (11.5-14.5) Platelet Count 134 x10^3/uL (140-400) Neutrophils (%) (Auto) 75 % (31-73) Lymphocytes (%) (Auto) 14 % (24-48) Monocytes (%) (Auto) 10 % (0-9) Eosinophils (%) (Auto) 1 % (0-3) Basophils (%) (Auto) 1 % (0-3) Neutrophils # (Auto) 5.7 x10^3uL (1.8-7.7) Lymphocytes # (Auto) 1.0 x10^3/uL (1.0-4.8) Monocytes # (Auto) 0.7 x10^3/uL (0.0-1.1) Eosinophils # (Auto) 0.1 x10^3/uL (0.0-0.7) Basophils # (Auto) 0.0 x10^3/uL (0.0-0.2) Sodium Level 140 mmol/L (136-145) Potassium Level 3.7 mmol/L (3.5-5.1) Chloride Level 102 mmol/L (98-107) Carbon Dioxide Level 32 mmol/L (21-32) Anion Gap 6 (6-14) Blood Urea Nitrogen 15 mg/dL (8-26) Creatinine 0.8 mg/dL (0.7-1.3) Estimated GFR (Cockcroft-Gault) 116.3 BUN/Creatinine Ratio 19 (6-20) Glucose Level 118 mg/dL (70-99) Calcium Level 8.7 mg/dL (8.5-10.1) Magnesium Level 2.2 mg/dL (1.8-2.4) Total Bilirubin 1.6 mg/dL (0.2-1.0) Aspartate Amino Transf (AST/SGOT) 33 U/L (15-37) Alanine Aminotransferase (ALT/SGPT) 83 U/L (16-63) Alkaline Phosphatase 81 U/L (46-116) Total Protein 6.2 g/dL (6.4-8.2) Albumin 2.8 g/dL (3.4-5.0) Albumin/Globulin Ratio 0.8 (1.0-1.7) Laboratory Tests Test 04/25/17 06:25 White Blood Count 7.6 x10^3/uL (4.0-11.0) Red Blood Count 4.02 x10^6/uL (4.30-5.70) Hemoglobin 10.8 g/dL (13.0-17.5) Hematocrit 33.8 % (39.0-53.0) Mean Corpuscular Volume 84 fL (79-100) Mean Corpuscular Hemoglobin 27 pg (25-35) Mean Corpuscular Hemoglobin Concent 32 g/dL (31-37) Red Cell Distribution Width 15.3 % (11.5-14.5) Platelet Count 134 x10^3/uL (140-400) Neutrophils (%) (Auto) 75 % (31-73) Lymphocytes (%) (Auto) 14 % (24-48) Monocytes (%) (Auto) 10 % (0-9) Eosinophils (%) (Auto) 1 % (0-3) Basophils (%) (Auto) 1 % (0-3) Neutrophils # (Auto) 5.7 x10^3uL (1.8-7.7) Lymphocytes # (Auto) 1.0 x10^3/uL (1.0-4.8) Monocytes # (Auto) 0.7 x10^3/uL (0.0-1.1) Eosinophils # (Auto) 0.1 x10^3/uL (0.0-0.7) Basophils # (Auto) 0.0 x10^3/uL (0.0-0.2) Sodium Level 140 mmol/L (136-145) Potassium Level 3.7 mmol/L (3.5-5.1) Chloride Level 102 mmol/L (98-107) Carbon Dioxide Level 32 mmol/L (21-32) Anion Gap 6 (6-14) Blood Urea Nitrogen 15 mg/dL (8-26) Creatinine 0.8 mg/dL (0.7-1.3) Estimated GFR (Cockcroft-Gault) 116.3 BUN/Creatinine Ratio 19 (6-20) Glucose Level 118 mg/dL (70-99) Calcium Level 8.7 mg/dL (8.5-10.1) Magnesium Level 2.2 mg/dL (1.8-2.4) Total Bilirubin 1.6 mg/dL (0.2-1.0) Aspartate Amino Transf (AST/SGOT) 33 U/L (15-37) Alanine Aminotransferase (ALT/SGPT) 83 U/L (16-63) Alkaline Phosphatase 81 U/L (46-116) Total Protein 6.2 g/dL (6.4-8.2) Albumin 2.8 g/dL (3.4-5.0) Albumin/Globulin Ratio 0.8 (1.0-1.7) Medications Active Scripts Medications Dose Route/Sig Max Daily Dose Days Date Category Albuterol Sulfate Neb Soln (Albuterol Sulfate) 2.5 Mg/3 Ml Vial.neb 2.5 Mg NEB QID PRN 04/19/17 Reported Flomax (Tamsulosin Hcl) 0.4 Mg Cap.er.24h 2 Cap PO DAILY 04/19/17 Reported Lipitor (Atorvastatin Calcium) 40 Mg Tablet 1 Tab PO QHS 04/19/17 Reported Tylenol (Acetaminophen) 325 Mg Tablet 1-2 Tab PO Q6HRS PRN 04/19/17 Reported Comments REVIEWED LLL ATELECTASIS Impression . 1. ACUTE RESP FAILURE SEC TO NSTEMI 2. 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 Acute on chronic combined systolic and diastolic heart failure 4. ICM; LVEF 15-20%/ Grade IV diastolic Dysfunction 5. Hyperlipidemia 6. COPD QUIT OVER 10 YEARS AGO Plan . PT DOING WELL ON RA START DIET FOLLOW CARD INPUT STABLE RESPIRATORY STATUS PFT OP (SMOKED 40 YRS) CHIKI TORRES MD Apr 25, 2017 12:02
--- NOTE | 2017-04-25 14:20 | PDOC ---
PROGRESS NOTES Chief Complaint Chief Complaint SOB NSTEMI ASSESSMENT AND PLAN: 1. NSTEMI: s/p PCI (04/23) with 3 vessel dz; MAHSA placement to LM/LAD. cont 2ary prevention meds 2. Acute on chronic combined systolic and diastolic heart failure: compensated ; EF 15-20; on lasix. re-evaluate need for LEI on an outpatient basis 3. Recheck echo in 3 months to evaluate need for AICD implantation in prevention of SCD. 4. Hypokalemia: repleted. monitor 5. UTI: Klebsiella, pansensitive. complete ceftriax 7d regimen tomorrow 6. s/p cysto (04/23) - Urethral stricture with false passage; F/U with [facility] in 2-3 weeks 7. Acute respiratory failure: intubated (04/23) for the above 2 procedures, extubated 04/24 8. Incidental sub-cm liver nodule: rpt scan in 6mo. 9. Dispo: anticipate D/C in AM with cardiology clearance History of Present Illness History of Present Illness sitting in chair for the first time since admit. no CP, no SOB Vitals Vitals Vital Signs Date Time Temp Pulse Resp B/P (MAP) Pulse Ox O2 Delivery O2 Flow Rate FiO2 04/25/17 13:23 Nasal Cannula 04/25/17 10:29 98.0 84 18 97/59 (72) 98 2.0 98.0 Physical Exam General: Alert, Oriented X3, Cooperative, No acute distress Heart: Normal S1, Normal S2, No murmurs Lungs: Clear Abdomen: Normal bowel sounds Extremities: No edema, Normal pulses Skin: No breakdown, No significant lesion Labs LABS Laboratory Tests Test 04/25/17 06:25 White Blood Count 7.6 x10^3/uL (4.0-11.0) Red Blood Count 4.02 x10^6/uL (4.30-5.70) Hemoglobin 10.8 g/dL (13.0-17.5) Hematocrit 33.8 % (39.0-53.0) Mean Corpuscular Volume 84 fL (79-100) Mean Corpuscular Hemoglobin 27 pg (25-35) Mean Corpuscular Hemoglobin Concent 32 g/dL (31-37) Red Cell Distribution Width 15.3 % (11.5-14.5) Platelet Count 134 x10^3/uL (140-400) Neutrophils (%) (Auto) 75 % (31-73) Lymphocytes (%) (Auto) 14 % (24-48) Monocytes (%) (Auto) 10 % (0-9) Eosinophils (%) (Auto) 1 % (0-3) Basophils (%) (Auto) 1 % (0-3) Neutrophils # (Auto) 5.7 x10^3uL (1.8-7.7) Lymphocytes # (Auto) 1.0 x10^3/uL (1.0-4.8) Monocytes # (Auto) 0.7 x10^3/uL (0.0-1.1) Eosinophils # (Auto) 0.1 x10^3/uL (0.0-0.7) Basophils # (Auto) 0.0 x10^3/uL (0.0-0.2) Sodium Level 140 mmol/L (136-145) Potassium Level 3.7 mmol/L (3.5-5.1) Chloride Level 102 mmol/L (98-107) Carbon Dioxide Level 32 mmol/L (21-32) Anion Gap 6 (6-14) Blood Urea Nitrogen 15 mg/dL (8-26) Creatinine 0.8 mg/dL (0.7-1.3) Estimated GFR (Cockcroft-Gault) 116.3 BUN/Creatinine Ratio 19 (6-20) Glucose Level 118 mg/dL (70-99) Calcium Level 8.7 mg/dL (8.5-10.1) Magnesium Level 2.2 mg/dL (1.8-2.4) Total Bilirubin 1.6 mg/dL (0.2-1.0) Aspartate Amino Transf (AST/SGOT) 33 U/L (15-37) Alanine Aminotransferase (ALT/SGPT) 83 U/L (16-63) Alkaline Phosphatase 81 U/L (46-116) Total Protein 6.2 g/dL (6.4-8.2) Albumin 2.8 g/dL (3.4-5.0) Albumin/Globulin Ratio 0.8 (1.0-1.7) ILDA TURPIN MD Apr 25, 2017 14:20
[2017-04-25 14:21] VITALS: BP 85/57
[2017-04-25] MEDS: IPRATRPIUM/ALBUTEROL 0.5/2.5MG 3 ML NEBU. NEB SCH ×2 (14:59→19:39)
[2017-04-25] MEDS: POTASSIUM CHLORIDE 10 MEQ TABLET.ER. PO SCH (16:43)
[2017-04-25 19:20] VITALS: BP 108/69
[2017-04-25] MEDS: ATORVASTATIN CALCIUM 40 MG TABLET. PO SCH (21:11)
[2017-04-25 23:30] VITALS: BP 95/51
[2017-04-26] VITALS (7 sets, daily range): BP systolic 95–146; BP diastolic 51–70
[2017-04-26] MEDS: IPRATRPIUM/ALBUTEROL 0.5/2.5MG 3 ML NEBU. NEB SCH ×4 (07:02→19:19)
--- NOTE | 2017-04-26 08:00 | RAD ---
Portable AP upright chest x-ray performed at 05 26 History: Respiratory failure. Follow-up study. Comparison: April 25, 2017. IMPRESSION: Persistent left lung base infiltrate or atelectasis with a small left-sided pleural effusion is unchanged. Right lung field remains clear. No pneumothorax is seen. The heart size is prominent but stable. The mediastinum and pulmonary vasculature are unchanged.
[2017-04-26] MEDS: TAMSULOSIN 0.4 MG CAP.ER.24H. PO SCH (09:00)
[2017-04-26] MEDS: FUROSEMIDE 40 MG TABLET. PO SCH (09:09)
[2017-04-26] MEDS: METOPROLOL SUCC 24HR ER 25 MG TAB.ER.24H. PO SCH (09:10)
[2017-04-26] MEDS: ASPIRIN ENTERIC COATED 81 MG TABLET.DR. PO SCH (09:10)
[2017-04-26] MEDS: CLOPIDOGREL BISULFATE 75 MG TABLET PO SCH (09:10)
[2017-04-26] MEDS: POTASSIUM CHLORIDE 10 MEQ TABLET.ER. PO SCH (09:11)
[2017-04-26] MEDS: LISINOPRIL 2.5 MG TABLET PO SCH (09:12)
--- NOTE | 2017-04-26 10:58 | PDOC ---
PULMONARY PROGRESS NOTES Subjective PT WITH NO DISTRESS EXTUBATED 04/24 Vitals Vital Signs Date Time Temp Pulse Resp B/P (MAP) Pulse Ox O2 Delivery O2 Flow Rate FiO2 04/26/17 10:26 97.9 87 18 102/62 (75) 94 Room Air 97.9 04/26/17 07:03 2.0 ROS: No Nausea, No Chest Pain, No Abdominal Pain, No Increase Cough General: Alert Lungs: Clear Cardiovascular: S1, S2 Abdomen: Soft, Non-tender Neuro Exam: Alert, Oriented Extremities: No Edema Skin: Warm, Dry Labs Laboratory Tests Test 04/25/17 06:25 White Blood Count 7.6 x10^3/uL (4.0-11.0) Red Blood Count 4.02 x10^6/uL (4.30-5.70) Hemoglobin 10.8 g/dL (13.0-17.5) Hematocrit 33.8 % (39.0-53.0) Mean Corpuscular Volume 84 fL (79-100) Mean Corpuscular Hemoglobin 27 pg (25-35) Mean Corpuscular Hemoglobin Concent 32 g/dL (31-37) Red Cell Distribution Width 15.3 % (11.5-14.5) Platelet Count 134 x10^3/uL (140-400) Neutrophils (%) (Auto) 75 % (31-73) Lymphocytes (%) (Auto) 14 % (24-48) Monocytes (%) (Auto) 10 % (0-9) Eosinophils (%) (Auto) 1 % (0-3) Basophils (%) (Auto) 1 % (0-3) Neutrophils # (Auto) 5.7 x10^3uL (1.8-7.7) Lymphocytes # (Auto) 1.0 x10^3/uL (1.0-4.8) Monocytes # (Auto) 0.7 x10^3/uL (0.0-1.1) Eosinophils # (Auto) 0.1 x10^3/uL (0.0-0.7) Basophils # (Auto) 0.0 x10^3/uL (0.0-0.2) Sodium Level 140 mmol/L (136-145) Potassium Level 3.7 mmol/L (3.5-5.1) Chloride Level 102 mmol/L (98-107) Carbon Dioxide Level 32 mmol/L (21-32) Anion Gap 6 (6-14) Blood Urea Nitrogen 15 mg/dL (8-26) Creatinine 0.8 mg/dL (0.7-1.3) Estimated GFR (Cockcroft-Gault) 116.3 BUN/Creatinine Ratio 19 (6-20) Glucose Level 118 mg/dL (70-99) Calcium Level 8.7 mg/dL (8.5-10.1) Magnesium Level 2.2 mg/dL (1.8-2.4) Total Bilirubin 1.6 mg/dL (0.2-1.0) Aspartate Amino Transf (AST/SGOT) 33 U/L (15-37) Alanine Aminotransferase (ALT/SGPT) 83 U/L (16-63) Alkaline Phosphatase 81 U/L (46-116) Total Protein 6.2 g/dL (6.4-8.2) Albumin 2.8 g/dL (3.4-5.0) Albumin/Globulin Ratio 0.8 (1.0-1.7) Medications Active Scripts Medications Dose Route/Sig Max Daily Dose Days Date Category Albuterol Sulfate Neb Soln (Albuterol Sulfate) 2.5 Mg/3 Ml Vial.neb 2.5 Mg NEB QID PRN 04/19/17 Reported Flomax (Tamsulosin Hcl) 0.4 Mg Cap.er.24h 2 Cap PO DAILY 04/19/17 Reported Lipitor (Atorvastatin Calcium) 40 Mg Tablet 1 Tab PO QHS 04/19/17 Reported Tylenol (Acetaminophen) 325 Mg Tablet 1-2 Tab PO Q6HRS PRN 04/19/17 Reported Comments REVIEWED LLL ATELECTASIS Impression . 1. ACUTE RESP FAILURE SEC TO NSTEMI 2. 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 Acute on chronic combined systolic and diastolic heart failure 4. ICM; LVEF 15-20%/ Grade IV diastolic Dysfunction 5. Hyperlipidemia 6. COPD QUIT OVER 10 YEARS AGO Plan . PT DOING WELL ON RA PO DIET FOLLOW CARD INPUT STABLE RESPIRATORY STATUS PFT OP (SMOKED 40 YRS) OK WITH DC HOME PULMONARY MAURICIO CXR STABLE 04/26 CHIKI TORRES MD Apr 26, 2017 10:58
--- NOTE | 2017-04-26 11:58 | PDOC ---
LIBERTAD VERDUGOILY KEVYN 04/26/17 1157: CARDIO Progress Notes Date and Time Date of Service 04/26/17 Time of Evaluation 1120 Subjective Subjective: No Chest Pain, No shortness of breath, No Palpitations, Other Comments: no acute events overnight Vitals Vitals Vital Signs Date Time Temp Pulse Resp B/P (MAP) Pulse Ox O2 Delivery O2 Flow Rate FiO2 04/26/17 11:09 98 Room Air 04/26/17 10:26 97.9 87 18 102/62 (75) 97.9 04/26/17 07:03 2.0 Weight Weight [ ] Input and Output Intake and Output Intake and Output 04/26/17 07:00 Intake Total 2050 ml Output Total 1500 ml Balance 550 ml Intake Oral 2000 ml IV Total 50 ml Output Urine Total 1500 ml # Bowel Movements 1 Microbiology Micro Microbiology 04/19/17 Urine Culture - Final, Complete 04/19/17 Urine Culture Result 1 (KATHY) - Final, Complete 04/19/17 Antimicrobic Susceptibility - Final, Complete Physical Exam HEENT: Neck Supple W Full Motion Chest: Symmetric LUNGS: Other (diminished bases ) Heart: S1S2, RRR, other (tele: SR with PVC's, soft systolic murmur ) Abdomen: Soft N/T Extremities: 2+ Dorsalis Pedis, No Edema Neurology: alert, oriented, follow commands Assessment Assessment 1. 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 ICM; LVEF 15-20% 3. Ventricular arrhythmia Recommendations Will convert Coreg to Toprol given intermittent tachycardia and PVC's Add low-dose LEI as BP tolerates Increased ambulation. PT/OT Recheck labs Monitor telemetry overnight. Probable discharge in the am. MATHEW CHIU MD 04/26/174: CARDIO Progress Notes Plan Plan Pt. seen and examined. 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 No acute events overnight. Denies chest pain. Breathing better. Normal cardiac exam. Edema sign improved. Meds to be titrated today to include increase toprol if able. Likely DC tomorrow. Thanks MARTI VERDUGO APRN Apr 26, 2017 11:57 MATHEW CHIU MD Apr 26, 2017 20:44
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
[2017-04-26 14:19] LABS: CALCIUM 8.5 mg/dL (8.5-10.1); GFR 89.9; MAGNESIUM 1.9 mg/dL (1.8-2.4); POTASSIUM 3.8 mmol/L (3.5-5.1)
[2017-04-26] MEDS: ATORVASTATIN CALCIUM 40 MG TABLET. PO SCH (20:40)
[2017-04-26] MEDS: ACETAMINOPHEN 500 MG TABLET PO PRN (20:40)
[2017-04-26] MEDS ORDERED: TAMSULOSIN 0.4 MG CAP.ER.24H. PO SCH (23:15)
[2017-04-27 03:46] VITALS: BP 105/69
[2017-04-27 07:00] VITALS: BP 111/73
[2017-04-27] MEDS: IPRATRPIUM/ALBUTEROL 0.5/2.5MG 3 ML NEBU. NEB SCH ×3 (08:37→16:49)
[2017-04-27] MEDS: POTASSIUM CHLORIDE 10 MEQ TABLET.ER. PO SCH (08:47)
[2017-04-27] MEDS: CLOPIDOGREL BISULFATE 75 MG TABLET PO SCH (08:47)
[2017-04-27] MEDS: ASPIRIN ENTERIC COATED 81 MG TABLET.DR. PO SCH (08:47)
[2017-04-27] MEDS: LISINOPRIL 2.5 MG TABLET PO SCH (08:48)
[2017-04-27] MEDS: FUROSEMIDE 40 MG TABLET. PO SCH (08:48)
[2017-04-27] MEDS: METOPROLOL SUCC 24HR ER 25 MG TAB.ER.24H. PO SCH (08:48)
--- NOTE | 2017-04-27 09:43 | PDOC ---
MARTI VERDUGO [employer]ER 04/27/17 0943: CARDIO Progress Notes Date and Time Date of Service 04/27/17 Time of Evaluation 0935 Subjective Subjective: No Chest Pain, No shortness of breath, No Palpitations Comments: no acute events overnight; less frequent PVC's with BB conversion to Toprol Vitals Vitals Vital Signs Date Time Temp Pulse Resp B/P (MAP) Pulse Ox O2 Delivery O2 Flow Rate FiO2 04/27/17 08:48 93 111/73 04/27/17 08:38 94 Room Air 04/27/17 07:00 98.2 18 98.2 04/26/17 07:03 2.0 Weight Weight [ ] Input and Output Intake and Output Intake and Output 04/27/17 06:59 Intake Total 1160 ml Output Total 2450 ml Balance -1290 ml Intake Oral 1160 ml Output Urine Total 2450 ml Laboratory Labs Laboratory Tests Test 04/26/17 13:35 Sodium Level 138 mmol/L (136-145) Potassium Level 3.8 mmol/L (3.5-5.1) Chloride Level 104 mmol/L (98-107) Carbon Dioxide Level 30 mmol/L (21-32) Anion Gap 4 (6-14) Blood Urea Nitrogen 11 mg/dL (8-26) Creatinine 1.0 mg/dL (0.7-1.3) Estimated GFR (Cockcroft-Gault) 89.9 Glucose Level 204 mg/dL (70-99) Calcium Level 8.5 mg/dL (8.5-10.1) Magnesium Level 1.9 mg/dL (1.8-2.4) Microbiology Micro Microbiology 04/19/17 Urine Culture - Final, Complete 04/19/17 Urine Culture Result 1 (KATHY) - Final, Complete 04/19/17 Antimicrobic Susceptibility - Final, Complete Physical Exam HEENT: Neck Supple W Full Motion Chest: Symmetric LUNGS: Clear to Auscultation, Other Heart: S1S2, RRR, other (tele: ) Abdomen: Soft N/T Extremities: 2+ Dorsalis Pedis, No Edema Neurology: alert, oriented, follow commands Assessment Assessment 1. 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 ICM; LVEF 15-20% Recommendations BP adequate; increase Toprol to 25mg daily. Continue secondary prevention measures Risk stratification modification Repeat echo in 3 months, on an outpatient basis, to assess LV function May discharge from a CV standpoint and f/u in our office in 4 weeks. MATHEW CHIU MD 04/27/17 1834: CARDIO Progress Notes Plan Plan Patient seen and examined. Agree with above nurse practitioner note. No acute events overnight. Emulated well this morning. Normal cardiac exam. No edema. Medications reviewed with nursing staff. We will increase Toprol to 25 mg daily. Follow-up in our office in 4 weeks. MARTI VERDUGO APRN Apr 27, 2017 09:43 MATHEW CHIU MD Apr 27, 2017 18:34
[2017-04-27] MEDS ORDERED: METOPROLOL SUCC 24HR ER 25 MG TAB.ER.24H. PO ONE (10:00)
[2017-04-27 11:00] VITALS: BP 112/66
--- NOTE | 2017-04-27 11:21 | PDOC ---
PULMONARY PROGRESS NOTES Subjective PT WITH NO DISTRESS EXTUBATED 04/24 Vitals Vital Signs Date Time Temp Pulse Resp B/P (MAP) Pulse Ox O2 Delivery O2 Flow Rate FiO2 04/27/17 11:00 97.9 105 20 112/66 (81) 97 Room Air 97.9 04/26/17 07:03 2.0 ROS: No Nausea, No Chest Pain, No Abdominal Pain, No Increase Cough General: Alert Lungs: Clear Cardiovascular: S1, S2 Abdomen: Soft, Non-tender Neuro Exam: Alert, Oriented Extremities: No Edema Skin: Warm, Dry Labs Laboratory Tests Test 04/26/17 13:35 Sodium Level 138 mmol/L (136-145) Potassium Level 3.8 mmol/L (3.5-5.1) Chloride Level 104 mmol/L (98-107) Carbon Dioxide Level 30 mmol/L (21-32) Anion Gap 4 (6-14) Blood Urea Nitrogen 11 mg/dL (8-26) Creatinine 1.0 mg/dL (0.7-1.3) Estimated GFR (Cockcroft-Gault) 89.9 Glucose Level 204 mg/dL (70-99) Calcium Level 8.5 mg/dL (8.5-10.1) Magnesium Level 1.9 mg/dL (1.8-2.4) Laboratory Tests Test 04/26/17 13:35 Sodium Level 138 mmol/L (136-145) Potassium Level 3.8 mmol/L (3.5-5.1) Chloride Level 104 mmol/L (98-107) Carbon Dioxide Level 30 mmol/L (21-32) Anion Gap 4 (6-14) Blood Urea Nitrogen 11 mg/dL (8-26) Creatinine 1.0 mg/dL (0.7-1.3) Estimated GFR (Cockcroft-Gault) 89.9 Glucose Level 204 mg/dL (70-99) Calcium Level 8.5 mg/dL (8.5-10.1) Magnesium Level 1.9 mg/dL (1.8-2.4) Medications Active Scripts Medications Dose Route/Sig Max Daily Dose Days Date Category Albuterol Sulfate Neb Soln (Albuterol Sulfate) 2.5 Mg/3 Ml Vial.neb 2.5 Mg NEB QID PRN 04/19/17 Reported Flomax (Tamsulosin Hcl) 0.4 Mg Cap.er.24h 2 Cap PO DAILY 04/19/17 Reported Lipitor (Atorvastatin Calcium) 40 Mg Tablet 1 Tab PO QHS 04/19/17 Reported Tylenol (Acetaminophen) 325 Mg Tablet 1-2 Tab PO Q6HRS PRN 04/19/17 Reported Comments REVIEWED LLL ATELECTASIS Impression . 1. ACUTE RESP FAILURE SEC TO NSTEMI 2. 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 Acute on chronic combined systolic and diastolic heart failure 4. ICM; LVEF 15-20%/ Grade IV diastolic Dysfunction 5. Hyperlipidemia 6. COPD QUIT OVER 10 YEARS AGO Plan . PT DOING WELL ON RA PO DIET FOLLOW CARD INPUT STABLE RESPIRATORY STATUS PFT OP (SMOKED 40 YRS) OK WITH DC HOME PULMONARY MAURICIO CXR STABLE 04/26 CHIKI TORRES MD Apr 27, 2017 11:21
[2017-04-27] MEDS ORDERED: CLOP75TA PO (14:03)
[2017-04-27] MEDS ORDERED: FURO40TA4 PO (14:03)
[2017-04-27] MEDS ORDERED: METO25TA9 PO (14:03)
[2017-04-27] MEDS ORDERED: LISI2.5T PO (14:03)
[2017-04-27] MEDS ORDERED: POTA10TA12 PO (14:03)
[2017-04-28] MEDS ORDERED: METOPROLOL SUCC 24HR ER 25 MG TAB.ER.24H. PO SCH (09:00)
--- NOTE | 2017-04-29 20:02 | PDOC3 ---
Discharge Summary* Date of Admission: Apr 18, 2017 Date of Discharge: Apr 27, 2017 Admitting Diagnosis NSTEMI CHF Problems: Final Diagnosis NSTEMI CHF Brief Hospital Course Mr Dumont is a 66 y.o AA man without significant PMH, who went to [facility] because of acute SOA for1-2 weeks. He claims that usually can walk 2-3 miles, but now short distances case SOA. No real CP, but admits to weight gain on specific questioning. Initial troponin was elevated at .2, and proBNP at 8K. He was admitted with NSTEMI, suspicion for CHF. He also had major issues with difficulty initiating a void; he was seen [facility] as OP, started on FLomax 0.8. No hx prostate CA. A CT a/p at [facility] revealed moderate pancreatic stranding, diverticulosis, chronic inflammation urinary bladder wall and bilateral small pleural effusion. Some small incidental liver nodule as well 1. NSTEMI: s/p PCI (04/23) with 3 vessel dz; MAHSA placement to LM/LAD. cont 2ary prevention meds 2. Acute on chronic combined systolic and diastolic heart failure: compensated ; EF 15-20; on lasix. re-evaluate need for LEI on an outpatient basis 3. Recheck echo in 3 months to evaluate need for AICD implantation in prevention of SCD. 4. Hypokalemia: repleted. monitor 5. UTI: Klebsiella, pansensitive. complete ceftriax 7d regimen tomorrow 6. s/p cysto (04/23) - Urethral stricture with false passage; F/U with [facility] in 2-3 weeks 7. Acute respiratory failure: intubated (04/23) for the above 2 procedures, extubated 04/24 8. Incidental sub-cm liver nodule: rpt scan in 6mo. 9. Dispo: home with cardiology F/U, urology F/U Disposition/Orders: D/C to Home CONDITION AT DISCHARGE: Improved Diet: Cardiac Scheduled Atorvastatin Calcium (Lipitor), 1 TAB PO QHS, (Reported) Clopidogrel Bisulfate (Clopidogrel), 75 MG PO DAILYWBKFT Furosemide (Furosemide), 40 MG PO DAILY Lisinopril (Lisinopril), 2.5 MG PO DAILY Metoprolol Succinate (Metoprolol Succinate ( Xl )), 25 MG PO DAILY Potassium Chloride (Klor-Con M10), 10 MEQ PO DAILYWBKFT Tamsulosin Hcl (Flomax), 2 CAP PO DAILY, (Reported) Scheduled PRN Acetaminophen (Tylenol), 1-2 TAB PO Q6HRS PRN for ARTHRITIS, (Reported) Albuterol Sulfate (Albuterol Sulfate Neb Soln), 2.5 MG NEB QID PRN for ASTHMA, ( Reported) FOLLOW UP APPOINTMENT: Cardiology in 1 week Urology at in 2-3 weeks Time Spent Total time spent with patient [] minutes for coordination of care, counseling, and education. ILDA TURPIN MD Apr 29, 2017 20:02
== END 2017-04-27 17:00 | DRG 215 ==
LOC: EEVIPCON 22:48 → 2 SOUTH 22:48 → 1 WEST ICU 04-19 12:51 → 2 SOUTH 04-20 15:55 → 1 WEST ICU 04-23 15:26 → 2 SOUTH 04-24 19:55
PROVIDERS: ADMIT Internal Medicine; ATTEND Internal Medicine
PROC: 4A023N7 Measurement of Cardiac Sampling and Pressure, Left Heart, Percutaneous Approach (ICD-10-PCS; 2017-04-19)
PROC: B2111ZZ Fluoroscopy of Multiple Coronary Arteries using Low Osmolar Contrast (ICD-10-PCS; 2017-04-19)
PROC: B2151ZZ Fluoroscopy of Left Heart using Low Osmolar Contrast (ICD-10-PCS; 2017-04-19)
PROC: 5A0221D Assistance with Cardiac Output using Impeller Pump, Continuous (ICD-10-PCS; 2017-04-23)
PROC: 027135Z Dilation of Coronary Artery, Two Arteries with Two Drug-eluting Intraluminal Devices, Percutaneous Approach (ICD-10-PCS; 2017-04-23)
PROC: 02703ZZ Dilation of Coronary Artery, One Artery, Percutaneous Approach (ICD-10-PCS; 2017-04-23)
PROC: 0T7D8ZZ Dilation of Urethra, Via Natural or Artificial Opening Endoscopic (ICD-10-PCS; 2017-04-23)
PROC: 0T9B80Z Drainage of Bladder with Drainage Device, Via Natural or Artificial Opening Endoscopic (ICD-10-PCS; 2017-04-23)
PROC: 5A1945Z Respiratory Ventilation, 24-96 Consecutive Hours (ICD-10-PCS; 2017-04-23)
PROC: 0BH17EZ Insertion of Endotracheal Airway into Trachea, Via Natural or Artificial Opening (ICD-10-PCS; 2017-04-23)
PROC: 02HA3RZ Insertion of Short-term External Heart Assist System into Heart, Percutaneous Approach (ICD-10-PCS; principal; 2017-04-23 08:00)
DX: I21.4 Non-ST elevation (NSTEMI) myocardial infarction (principal); I50.43 Acute on chronic combined systolic (congestive) and diastolic (congestive) heart failure; J96.00 Acute respiratory failure, unspecified whether with hypoxia or hypercapnia; R57.0 Cardiogenic shock; N39.0 Urinary tract infection, site not specified; E78.5 Hyperlipidemia, unspecified; E87.6 Hypokalemia; I25.10 Atherosclerotic heart disease of native coronary artery without angina pectoris; I25.5 Ischemic cardiomyopathy; I27.2 Other secondary pulmonary hypertension; J44.9 Chronic obstructive pulmonary disease, unspecified; K76.89 Other specified diseases of liver; M79.7 Fibromyalgia; N35.9 Urethral stricture, unspecified; N40.1 Benign prostatic hyperplasia with lower urinary tract symptoms; R33.8 Other retention of urine; D72.829 Elevated white blood cell count, unspecified; E87.70 Fluid overload, unspecified; R31.9 Hematuria, unspecified; Z88.6 Allergy status to analgesic agent
CPT/HCPCS: 33990; 36415; 36600; 37252; 71010; 74000; 76000; 80048; 80053; 80061; 81001; 82805; 83735; 83880; 84443; 84484; 85007; 85027; 85347; 85520; 87086; 87186; 87641; 92928; 92943; 93306; 93458; 93571; 94002; 94003; 94250; 94640; 94760; 99152; 99153; C1725; C1753; C1769; C1771; C1874; C1887; C1892; C1894; G0103; G0269; J0330; J0690; J0696; J1100; J1644; J1940; J2001; J2250; J2260; J2270; J2370; J2405; J2704; J3010; J3490; J7120; J7620; Q9967; 97116; J3246

== ENCOUNTER 2017-05-14 13:32 | Inpatient (IN) | payer MEDICAID, OTHER ==
[~2017-05-14] VITALS: Ht 177.8 cm; Wt 83.9 kg
[~2017-05-14 13:32] MED LIST: ACET325T9 PO; ALBU2.5V5 NEB; ATOR40TA PO; CLOP75TA PO; FURO40TA4 PO; LISI2.5T PO; METO25TA9 PO; POTA10TA12 PO; TAMS0.4C97 PO
[2017-05-14] MEDS ORDERED: NITROGLYCERIN SUBLINGUAL 0.4 MG BOTTLE OF 25. SL PRN (14:30)
--- NOTE | 2017-05-14 14:39 | RAD ---
EXAM: Chest one view. HISTORY: Weakness. COMPARISON: 04/26/2017. FINDINGS: A frontal view of the chest is obtained. Linear opacities in the bases most likely indicate atelectasis. Calcified mediastinal lymph nodes are likely secondary to old granulomatous disease. There are atherosclerotic calcifications of the aorta. There is no pneumothorax or pleural effusion. The heart is moderately enlarged. IMPRESSION: 1. Moderate cardiomegaly.
[2017-05-14 15:15] LABS: BASO % 0 % (0-3); EOS % 0 % (0-3); HEMATOCRIT 37.1 % (39.0-53.0); HEMOGLOBIN 11.8 g/dL (13.0-17.5); LYMPH # 0.6 x10^3/uL (1.0-4.8); LYMPH % 6 % (24-48); MEAN CORPUSCULAR HEMOGLOBIN 27 pg (25-35); MEAN CORPUSCULAR HGB CONC 32 g/dL (31-37); MEAN CORPUSCULAR VOLUME 84 fL (79-100); MONO % 3 % (0-9); NEUT % 91 % (31-73); PLATELET COUNT 197 x10^3/uL (140-400); RED BLOOD COUNT 4.44 x10^6/uL (4.30-5.70); RED CELL DISTRIBUTION WIDTH 15.1 % (11.5-14.5); WHITE BLOOD COUNT 9.4 x10^3/uL (4.0-11.0)
--- NOTE | 2017-05-14 15:38 | EKG ---
[facility] [address] [place] [address] Test Date: 2017-05-14 Test Time: 13:29:46 Pat Name: CYRUS BRAUN Department: Room: Gender: M End Packer: : [id number] Requested By: ADRIÁN CARSON Order Number: [id number] Reading MD: Measurements Intervals [place] Rate: 82 P: 34 NE: 198 QRS: -44 QRSD: 136 T: 49 QT: 442 QTc: 520 Interpretive Statements SINUS RHYTHM VENTRICULAR PREMATURE COMPLEX(ES) LEFT ATRIAL ABNORMALITY ABNORMAL LEFT AXIS DEVIATION NON SPECIFIC INTRAVENTRICULAR BLOCK ABNORMAL ECG RI6.01 No previous ECG available for comparison
[2017-05-14 15:50] LABS: PLT ESTIMATE ADEQUATE (ADEQUATE)
[2017-05-14 15:51] LABS: CALCIUM 9.1 mg/dL (8.5-10.1); CREATININE 0.9 mg/dL (0.7-1.3); GFR 101.5; POTASSIUM 3.6 mmol/L (3.5-5.1)
[2017-05-14 15:52] LABS: BACTERIA,URINE MODERATE /HPF (0-FEW); BILIRUBIN,URINE NEGATIVE (NEG); GLUCOSE,URINE NEGATIVE (NEG); NITRITE,URINE POSITIVE (NEG); PH,URINE 5.5; PROTEIN,URINE NEGATIVE (NEG-TRACE); SQUAMOUS EPITHELIAL CELL,UR OCC /LPF; UROBILINOGEN,URINE 0.2 mg/dL (0.2 mg/dL)
[2017-05-14 15:57] LABS: DIRECT BILIRUBIN 0.2 mg/dL (0.0-0.2); TOTAL BILIRUBIN 0.9 mg/dL (0.2-1.0); TOTAL PROTEIN 7.8 g/dL (6.4-8.2)
[2017-05-14] MEDS: IV NORMAL SALINE 1000ML BAG 1,000 ML IV SCH ×3 (16:13→18:02)
[2017-05-14] MEDS ORDERED: PIP/TAZO PER PHARMACY MC PRN (16:15)
[2017-05-14] MEDS ORDERED: VANCOMYCIN 2 GM in IV NORMAL SALINE 500ML BAG 500 ML IV ONE (16:30)
[2017-05-14] MEDS ORDERED: PIPERACILLIN/TAZOBACTAM 4.5 GM in IV NORMAL SALINE 100ML 100 ML IV ONE (16:30)
[2017-05-14 16:59] LABS: ALBUMIN 3.6 g/dL (3.4-5.0)
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
[2017-05-14] MEDS ORDERED: ONDANSETRON PF 4 MG/2 ML VIAL. ONE (18:11)
[2017-05-14] MEDS ORDERED: ONDANSETRON PF 4 MG/2 ML VIAL. IV ONE (18:15)
[2017-05-14] MEDS ORDERED: ONDANSETRON PF 4 MG/2 ML VIAL. IV PRN (18:15)
[2017-05-14] MEDS ORDERED: MORPHINE SULFATE 2 MG/ML DISP.SYRIN. IV PRN (18:15)
[2017-05-14] MEDS: VANCOMYCIN PER PHARMACY MC PRN (18:19)
--- NOTE | 2017-05-14 19:17 | PDOC1 ---
History and Physical Date of Admission Date of Admission DATE: 05/14/17 TIME: 19:15 History of Present Illness History of Present Illness 66 YO M presenting to the ED with generalized weakness and malaise. He also has been having intermittent cp. He denies numbness and. He denies vision changes. This started approximately 2 days ago is worse when he walks and improved with rest. It is nonradiating. While in Er pts labs show a UTI DW ER doc Pt seen and examined Reviewed chart and home meds Plan is admit with IV antibx and IV fluids Past Medical History Cardiovascular: Hyperlipidemia Pulmonary: COPD CENTRAL NERVOUS SYSTEM: Other GI: Diverticulosis, Other Heme/Onc: No pertinent hx Hepatobiliary: No pertinent hx Psych: No pertinent hx Musculoskeletal: No pain Rheumatologic: Fibromyalgia Infectious disease: No pertinent hx Renal/: Benign prostatic enlarg. Endocrine: No pertinent hx Past Surgical History Past Surgical History: Other Family History Family History: Family History Unknown Social History ALCOHOL: none Drugs: Other Current Problem List Problem List Problems Medical Problems: (1) Urinary tract infection Status: Acute Problems: Current Medications Current Medications Current Medications Nitroglycerin (Nitrostat) 0.4 mg PRN Q5MIN PRN SL CHEST PAIN; Start 05/14/17 at 14:30 Sodium Chloride 1,000 ml @ 2,520 mls/hr Q24M IV Last administered on 18:02; Start 05/14/17 at 16:13; Stop 05/14/17 at 17:12; Status DC Vancomycin HCl (Vanco Per Pharmacy) 1 each PRN DAILY PRN MC SEE COMMENTS Last administered on 05/14/17 18:19; Start 05/14/17 at 16:15 Piperacillin Sod/ Tazobactam Sod (Zosyn Per Pharmacy) 1 each PRN DAILY PRN MC SEE COMMENTS; Start 05/14/17 at 16:15 Vancomycin HCl 2 gm/Sodium Chloride 500 ml @ 250 mls/hr 1X ONCE IV Last administered on 05/14/17 17:28; Start 05/14/17 at 16:30; Stop 05/14/17 at 18:29 ; Status DC Piperacillin Sod/ Tazobactam Sod 4.5 gm/Sodium Chloride 100 ml @ 200 mls/hr 1X ONCE IV Last administered on 05/14/17 16:45; Start 05/14/17 at 16:30; Stop 05/14/17 at 16:59; Status DC Vancomycin HCl 1.25 gm/Sodium Chloride 250 ml @ 167 mls/hr Q12H IV ; Start at 05:00 Ondansetron HCl (Zofran) 4 mg 1X ONCE IV Last administered on 05/14/17t 18:15 ; Start 05/14/17 at 18:15; Stop 05/14/17 at 18:18; Status DC Ondansetron HCl (Zofran) 4 mg STK-MED ONCE .ROUTE ; Start 05/14/17 at 18:11; Stop 05/14/17 at 18:12; Status DC Ondansetron HCl (Zofran) 4 mg PRN Q8HRS PRN IV NAUSEA/VOMITING; Start 05/14/17 at 18:15; Stop 05/15/17 at 18:14 Morphine Sulfate 2 mg PRN Q2HR PRN IV PAIN; Start 05/14/17 at 18:15; Stop 05/15 at 18:14 Vancomycin HCl 1 each 1X ONCE MC ; Start 05/16/17 at 04:30; Stop 05/16/17 at 04 :31 Piperacillin Sod/ Tazobactam Sod 4.5 gm/Sodium Chloride 100 ml @ 200 mls/hr Q6HRS IV ; Start 05/14/17 at 23:00 Active Scripts Active Klor-Con M10 (Potassium Chloride) 10 Meq Tab.er.prt 10 Meq PO DAILYWBKFT Metoprolol Succinate ( Xl ) (Metoprolol Succinate) 25 Mg Tab.er.24h 25 Mg PO DAILY Lisinopril 2.5 Mg Tablet 2.5 Mg PO DAILY Furosemide 40 Mg Tablet 40 Mg PO DAILY Clopidogrel (Clopidogrel Bisulfate) 75 Mg Tablet 75 Mg PO DAILYWBKFT Reported Albuterol Sulfate Neb Soln (Albuterol Sulfate) 2.5 Mg/3 Ml Vial.neb 2.5 Mg NEB QID PRN Flomax (Tamsulosin Hcl) 0.4 Mg Cap.er.24h 2 Cap PO DAILY Lipitor (Atorvastatin Calcium) 40 Mg Tablet 1 Tab PO QHS Tylenol (Acetaminophen) 325 Mg Tablet 1-2 Tab PO Q6HRS PRN Allergies Allergies: Coded Allergies: No Known Drug Allergies (Unverified , 04/24/17) Vitals Vitals Vital Signs Date Time Temp Pulse Resp B/P (MAP) Pulse Ox O2 Delivery O2 Flow Rate FiO2 05/14/17 18:24 92 21 124/87 (99) 96 Room Air Labs Labs Laboratory Tests Test 05/14/17 15:05 05/14/17 15:15 05/14/17 18:20 White Blood Count 9.4 x10^3/uL (4.0-11.0) Red Blood Count 4.44 x10^6/uL (4.30-5.70) Hemoglobin 11.8 g/dL (13.0-17.5) Hematocrit 37.1 % (39.0-53.0) Mean Corpuscular Volume 84 fL (79-100) Mean Corpuscular Hemoglobin 27 pg (25-35) Mean Corpuscular Hemoglobin Concent 32 g/dL (31-37) Red Cell Distribution Width 15.1 % (11.5-14.5) Platelet Count 197 x10^3/uL (140-400) Neutrophils (%) (Auto) 91 % (31-73) Lymphocytes (%) (Auto) 6 % (24-48) Monocytes (%) (Auto) 3 % (0-9) Eosinophils (%) (Auto) 0 % (0-3) Basophils (%) (Auto) 0 % (0-3) Neutrophils # (Auto) 8.6 x10^3uL (1.8-7.7) Lymphocytes # (Auto) 0.6 x10^3/uL (1.0-4.8) Monocytes # (Auto) 0.3 x10^3/uL (0.0-1.1) Eosinophils # (Auto) 0.0 x10^3/uL (0.0-0.7) Basophils # (Auto) 0.0 x10^3/uL (0.0-0.2) Segmented Neutrophils % 87 % (35-66) Lymphocytes % 10 % (24-48) Monocytes % 3 % (0-10) Platelet Estimate Adequate (ADEQUATE) Sodium Level 142 mmol/L (136-145) Potassium Level 3.6 mmol/L (3.5-5.1) Chloride Level 104 mmol/L (98-107) Carbon Dioxide Level 28 mmol/L (21-32) Anion Gap 10 (6-14) Blood Urea Nitrogen 11 mg/dL (8-26) Creatinine 0.9 mg/dL (0.7-1.3) Estimated GFR (Cockcroft-Gault) 101.5 Glucose Level 199 mg/dL (70-99) Lactic Acid Level 3.2 mmol/L (0.4-2.0) 2.5 mmol/L (0.4-2.0) Calcium Level 9.1 mg/dL (8.5-10.1) Total Bilirubin 0.9 mg/dL (0.2-1.0) Direct Bilirubin 0.2 mg/dL (0.0-0.2) Aspartate Amino Transf (AST/SGOT) 23 U/L (15-37) Alanine Aminotransferase (ALT/SGPT) 30 U/L (16-63) Alkaline Phosphatase 97 U/L (46-116) Troponin I Quantitative 0.022 ng/mL (0.000-0.055) KS-Pkm-S-Type Natriuretic Peptide 1376 pg/mL (0-124) Total Protein 7.8 g/dL (6.4-8.2) Albumin 3.6 g/dL (3.4-5.0) Lipase 68 U/L (73-393) Urine Collection Type Unknown Urine Color Yellow Urine Clarity Cloudy Urine pH 5.5 Urine Specific [place] 1.015 Urine Protein Negative mg/dL (NEG-TRACE) Urine Glucose (UA) Negative mg/dL (NEG) Urine Ketones (Stick) Negative mg/dL (NEG) Urine Blood Moderate (NEG) Urine Nitrite Positive (NEG) Urine Bilirubin Negative (NEG) Urine Urobilinogen Dipstick 0.2 mg/dL (0.2 mg/dL) Urine Leukocyte Esterase Moderate (NEG) Urine RBC 3-5 /HPF (0-2) Urine WBC 5-10 /HPF (0-4) Urine Squamous Epithelial Cells Occ /LPF Urine Bacteria Moderate /HPF (0-FEW) Urine Mucus Mod /LPF Laboratory Tests Test 05/14/17 15:05 05/14/17 15:15 05/14/17 18:20 White Blood Count 9.4 x10^3/uL (4.0-11.0) Red Blood Count 4.44 x10^6/uL (4.30-5.70) Hemoglobin 11.8 g/dL (13.0-17.5) Hematocrit 37.1 % (39.0-53.0) Mean Corpuscular Volume 84 fL (79-100) Mean Corpuscular Hemoglobin 27 pg (25-35) Mean Corpuscular Hemoglobin Concent 32 g/dL (31-37) Red Cell Distribution Width 15.1 % (11.5-14.5) Platelet Count 197 x10^3/uL (140-400) Neutrophils (%) (Auto) 91 % (31-73) Lymphocytes (%) (Auto) 6 % (24-48) Monocytes (%) (Auto) 3 % (0-9) Eosinophils (%) (Auto) 0 % (0-3) Basophils (%) (Auto) 0 % (0-3) Neutrophils # (Auto) 8.6 x10^3uL (1.8-7.7) Lymphocytes # (Auto) 0.6 x10^3/uL (1.0-4.8) Monocytes # (Auto) 0.3 x10^3/uL (0.0-1.1) Eosinophils # (Auto) 0.0 x10^3/uL (0.0-0.7) Basophils # (Auto) 0.0 x10^3/uL (0.0-0.2) Segmented Neutrophils % 87 % (35-66) Lymphocytes % 10 % (24-48) Monocytes % 3 % (0-10) Platelet Estimate Adequate (ADEQUATE) Sodium Level 142 mmol/L (136-145) Potassium Level 3.6 mmol/L (3.5-5.1) Chloride Level 104 mmol/L (98-107) Carbon Dioxide Level 28 mmol/L (21-32) Anion Gap 10 (6-14) Blood Urea Nitrogen 11 mg/dL (8-26) Creatinine 0.9 mg/dL (0.7-1.3) Estimated GFR (Cockcroft-Gault) 101.5 Glucose Level 199 mg/dL (70-99) Lactic Acid Level 3.2 mmol/L (0.4-2.0) 2.5 mmol/L (0.4-2.0) Calcium Level 9.1 mg/dL (8.5-10.1) Total Bilirubin 0.9 mg/dL (0.2-1.0) Direct Bilirubin 0.2 mg/dL (0.0-0.2) Aspartate Amino Transf (AST/SGOT) 23 U/L (15-37) Alanine Aminotransferase (ALT/SGPT) 30 U/L (16-63) Alkaline Phosphatase 97 U/L (46-116) Troponin I Quantitative 0.022 ng/mL (0.000-0.055) LK-Wtx-S-Type Natriuretic Peptide 1376 pg/mL (0-124) Total Protein 7.8 g/dL (6.4-8.2) Albumin 3.6 g/dL (3.4-5.0) Lipase 68 U/L (73-393) Urine Collection Type Unknown Urine Color Yellow Urine Clarity Cloudy Urine pH 5.5 Urine Specific [place] 1.015 Urine Protein Negative mg/dL (NEG-TRACE) Urine Glucose (UA) Negative mg/dL (NEG) Urine Ketones (Stick) Negative mg/dL (NEG) Urine Blood Moderate (NEG) Urine Nitrite Positive (NEG) Urine Bilirubin Negative (NEG) Urine Urobilinogen Dipstick 0.2 mg/dL (0.2 mg/dL) Urine Leukocyte Esterase Moderate (NEG) Urine RBC 3-5 /HPF (0-2) Urine WBC 5-10 /HPF (0-4) Urine Squamous Epithelial Cells Occ /LPF Urine Bacteria Moderate /HPF (0-FEW) Urine Mucus Mod /LPF VTE Prophylaxis Ordered VTE Prophylaxis Devices: Yes VTE Pharmacological Prophylaxi: Yes NICO ALVAREZ III DO May 14, 2017 19:17
[2017-05-14 19:30] VITALS: BP 105/68
[2017-05-14] MEDS ORDERED: ALBUTEROL SULFATE 2.5 MG/3 ML NEBU. NEB PRN (19:30)
[2017-05-14] MEDS: TAMSULOSIN 0.4 MG CAP.ER.24H. PO SCH (20:53)
[2017-05-14] MEDS: ATORVASTATIN CALCIUM 40 MG TABLET. PO SCH (20:53)
[2017-05-14] MEDS: PIPERACILLIN/TAZOBACTAM 4.5 GM in IV NORMAL SALINE 100ML 100 ML IV SCH (23:00)
[2017-05-14 23:10] VITALS: BP 116/80
--- NOTE | 2017-05-14 23:27 | ACF ---
Admission Forms Criteria URINARY COMPLICATIONS Clinical Indications for Inpatient Care (Place 'X' for any and all applicable criteria): Ongoing inpatient care may be indicated for urinary complications with ANY ONE of the following: [X]I. Urinary tract infection requiring inpatient care as indicated by ANY ONE of the following(8)(19)(20): [ ]a) Severe symptoms (eg, high fever, severe pain) [ ]b) Vomiting or dehydration requiring ongoing inpatient care [X]c) IV antibiotic needs that cannot be managed at lower level of care [ ]d) Hemodynamic instability [ ]e) Obstruction of collecting system by stone or tumor [ ]II. Urinary retention requiring drainage or surgery (3)(4)(5)(17)(18) [ ]III. Renal failure (Use Renal Failure Criteria for further information.) [ ]IV. Oliguria(30) [ ]V. Post obstructive diuresis requiring close monitoring of urine output and intravenous compensation for excessive fluid losses(33) Extended stay beyond goal length of stay for primary condition may be needed until ALL of the following are present(3)(4)(5)(8): [ ]a) Renal function (creatinine) at baseline, or daily decreases in creatinine consistent with renal function return [ ]b) Voiding adequately or with urinary catheter or percutaneous suprapubic tube and management regimen in place that is performable at lower level of care. [ ]c) Urine output adequate [ ]d) Fever absent or resolving [ ]e) Infection absent or treatable at next level of care The original trend[employer] content created by [employer] has been revised. The portions of the content which have been revised are identified through the use of italic text or in bold, and [facility] has neither reviewed nor approved the modified material. All other unmodified content is copyright [facility] [place] Please see references footnoted in the original [facility] [place] edition 2016 Admission Criteria Met?: Yes MIRZA JONES May 14, 2017 23:27
[2017-05-15 03:20] VITALS: BP 112/79
[2017-05-15] MEDS: VANCOMYCIN 1.25 GM in IV NORMAL SALINE 250ML 250 ML IV SCH ×2 (04:18→21:20)
[2017-05-15 05:13] LABS: BASO % 0 % (0-3); EOS % 0 % (0-3); HEMATOCRIT 33.1 % (39.0-53.0); HEMOGLOBIN 10.6 g/dL (13.0-17.5); LYMPH # 0.6 x10^3/uL (1.0-4.8); LYMPH % 8 % (24-48); MEAN CORPUSCULAR HEMOGLOBIN 26 pg (25-35); MEAN CORPUSCULAR HGB CONC 32 g/dL (31-37); MEAN CORPUSCULAR VOLUME 83 fL (79-100); MONO % 5 % (0-9); NEUT % 87 % (31-73); PLATELET COUNT 205 x10^3/uL (140-400); RED BLOOD COUNT 3.99 x10^6/uL (4.30-5.70); RED CELL DISTRIBUTION WIDTH 15.2 % (11.5-14.5); WHITE BLOOD COUNT 7.1 x10^3/uL (4.0-11.0)
[2017-05-15] MEDS: PIPERACILLIN/TAZOBACTAM 4.5 GM in IV NORMAL SALINE 100ML 100 ML IV SCH ×4 (05:21→23:22)
[2017-05-15 05:25] LABS: CALCIUM 8.1 mg/dL (8.5-10.1); CREATININE 0.8 mg/dL (0.7-1.3); GFR 116.3; POTASSIUM 3.8 mmol/L (3.5-5.1)
[2017-05-15 07:00] VITALS: BP 105/77
[2017-05-15] MEDS: POTASSIUM CHLORIDE 10 MEQ TABLET.ER. PO SCH (09:44)
[2017-05-15] MEDS: CLOPIDOGREL BISULFATE 75 MG TABLET PO SCH (09:44)
[2017-05-15] MEDS: FUROSEMIDE 40 MG TABLET. PO SCH (09:45)
[2017-05-15] MEDS: METOPROLOL SUCC 24HR ER 25 MG TAB.ER.24H. PO SCH (09:45)
[2017-05-15] MEDS: LISINOPRIL 2.5 MG TABLET PO SCH (09:46)
[2017-05-15 11:00] VITALS: BP 123/80
--- NOTE | 2017-05-15 11:51 | PDOC ---
PROGRESS NOTES Chief Complaint Chief Complaint 1. Sepsis 2/2 UTI 2. Chest pain 3. COPD 4. HLP 5. Fibromyalgia 6. BPH 7. Diverticulosis History of Present Illness History of Present Illness pt states he is doing fine, he states this morning he noticed vision changes with misrepresented distance between objects in his room, otherwise he has no other complaints, denies fever and chills, no abnormal urinary issues Vitals Vitals Vital Signs Date Time Temp Pulse Resp B/P (MAP) Pulse Ox O2 Delivery O2 Flow Rate FiO2 05/15/17 11:00 98.1 99 20 123/80 (94) 94 Room Air 98.1 Physical Exam General: Alert, Oriented X3, No acute distress Heart: Regular rate, No murmurs Lungs: Clear Abdomen: Normal bowel sounds, Soft, No tenderness Extremities: No clubbing, No cyanosis, No edema Skin: No rashes, No breakdown Labs LABS Laboratory Tests Test 05/14/17 15:05 05/14/17 15:15 05/14/17 18:20 05/15/17 03:20 White Blood Count 9.4 x10^3/uL (4.0-11.0) 7.1 x10^3/uL (4.0-11.0) Red Blood Count 4.44 x10^6/uL (4.30-5.70) 3.99 x10^6/uL (4.30-5.70) Hemoglobin 11.8 g/dL (13.0-17.5) 10.6 g/dL (13.0-17.5) Hematocrit 37.1 % (39.0-53.0) 33.1 % (39.0-53.0) Mean Corpuscular Volume 84 fL (79-100) 83 fL (79-100) Mean Corpuscular Hemoglobin 27 pg (25-35) 26 pg (25-35) Mean Corpuscular Hemoglobin Concent 32 g/dL (31-37) 32 g/dL (31-37) Red Cell Distribution Width 15.1 % (11.5-14.5) 15.2 % (11.5-14.5) Platelet Count 197 x10^3/uL (140-400) 205 x10^3/uL (140-400) Neutrophils (%) (Auto) 91 % (31-73) 87 % (31-73) Lymphocytes (%) (Auto) 6 % (24-48) 8 % (24-48) Monocytes (%) (Auto) 3 % (0-9) 5 % (0-9) Eosinophils (%) (Auto) 0 % (0-3) 0 % (0-3) Basophils (%) (Auto) 0 % (0-3) 0 % (0-3) Neutrophils # (Auto) 8.6 x10^3uL (1.8-7.7) 6.2 x10^3uL (1.8-7.7) Lymphocytes # (Auto) 0.6 x10^3/uL (1.0-4.8) 0.6 x10^3/uL (1.0-4.8) Monocytes # (Auto) 0.3 x10^3/uL (0.0-1.1) 0.3 x10^3/uL (0.0-1.1) Eosinophils # (Auto) 0.0 x10^3/uL (0.0-0.7) 0.0 x10^3/uL (0.0-0.7) Basophils # (Auto) 0.0 x10^3/uL (0.0-0.2) 0.0 x10^3/uL (0.0-0.2) Segmented Neutrophils % 87 % (35-66) Lymphocytes % 10 % (24-48) Monocytes % 3 % (0-10) Platelet Estimate Adequate (ADEQUATE) Sodium Level 142 mmol/L (136-145) 144 mmol/L (136-145) Potassium Level 3.6 mmol/L (3.5-5.1) 3.8 mmol/L (3.5-5.1) Chloride Level 104 mmol/L (98-107) 106 mmol/L (98-107) Carbon Dioxide Level 28 mmol/L (21-32) 28 mmol/L (21-32) Anion Gap 10 (6-14) 10 (6-14) Blood Urea Nitrogen 11 mg/dL (8-26) 12 mg/dL (8-26) Creatinine 0.9 mg/dL (0.7-1.3) 0.8 mg/dL (0.7-1.3) Estimated GFR (Cockcroft-Gault) 101.5 116.3 Glucose Level 199 mg/dL (70-99) 131 mg/dL (70-99) Lactic Acid Level 3.2 mmol/L (0.4-2.0) 2.5 mmol/L (0.4-2.0) Calcium Level 9.1 mg/dL (8.5-10.1) 8.1 mg/dL (8.5-10.1) Total Bilirubin 0.9 mg/dL (0.2-1.0) Direct Bilirubin 0.2 mg/dL (0.0-0.2) Aspartate Amino Transf (AST/SGOT) 23 U/L (15-37) Alanine Aminotransferase (ALT/SGPT) 30 U/L (16-63) Alkaline Phosphatase 97 U/L (46-116) Troponin I Quantitative 0.022 ng/mL (0.000-0.055) PI-Ajq-T-Type Natriuretic Peptide 1376 pg/mL (0-124) Total Protein 7.8 g/dL (6.4-8.2) Albumin 3.6 g/dL (3.4-5.0) Lipase 68 U/L (73-393) Urine Collection Type Unknown Urine Color Yellow Urine Clarity Cloudy Urine pH 5.5 Urine Specific [place] 1.015 Urine Protein Negative mg/dL (NEG-TRACE) Urine Glucose (UA) Negative mg/dL (NEG) Urine Ketones (Stick) Negative mg/dL (NEG) Urine Blood Moderate (NEG) Urine Nitrite Positive (NEG) Urine Bilirubin Negative (NEG) Urine Urobilinogen Dipstick 0.2 mg/dL (0.2 mg/dL) Urine Leukocyte Esterase Moderate (NEG) Urine RBC 3-5 /HPF (0-2) Urine WBC 5-10 /HPF (0-4) Urine Squamous Epithelial Cells Occ /LPF Urine Bacteria Moderate /HPF (0-FEW) Urine Mucus Mod /LPF Review of Systems Review of Systems denies N/V/D and ENCISO Assessment and Plan Assessmemt and Plan Assessment 1. Sepsis 2/2 UTI 2. Chest pain 3. COPD 4. HLP 5. Fibromyalgia 6. BPH 7. Diverticulosis Plan 1. Continue vancomycin and zosyn 2. Encourage water intake 3. Neuro consult for vision changes 4. Pain management with tylenol, morphine, nitro prn 5. PT/OT 6. Discussed plan of care with nursing 7. Continue home meds 8. Appreciate neuro subspecialty input 9. Zofran prn for nausea 10. SNU eval Problems: Comment Review of Relevant I have reviewed the following items raul (where applicable) has been applied. Labs Laboratory Tests Test 05/14/17 15:05 05/14/17 15:15 05/14/17 18:20 05/15/17 03:20 White Blood Count 9.4 x10^3/uL (4.0-11.0) 7.1 x10^3/uL (4.0-11.0) Red Blood Count 4.44 x10^6/uL (4.30-5.70) 3.99 x10^6/uL (4.30-5.70) Hemoglobin 11.8 g/dL (13.0-17.5) 10.6 g/dL (13.0-17.5) Hematocrit 37.1 % (39.0-53.0) 33.1 % (39.0-53.0) Mean Corpuscular Volume 84 fL (79-100) 83 fL (79-100) Mean Corpuscular Hemoglobin 27 pg (25-35) 26 pg (25-35) Mean Corpuscular Hemoglobin Concent 32 g/dL (31-37) 32 g/dL (31-37) Red Cell Distribution Width 15.1 % (11.5-14.5) 15.2 % (11.5-14.5) Platelet Count 197 x10^3/uL (140-400) 205 x10^3/uL (140-400) Neutrophils (%) (Auto) 91 % (31-73) 87 % (31-73) Lymphocytes (%) (Auto) 6 % (24-48) 8 % (24-48) Monocytes (%) (Auto) 3 % (0-9) 5 % (0-9) Eosinophils (%) (Auto) 0 % (0-3) 0 % (0-3) Basophils (%) (Auto) 0 % (0-3) 0 % (0-3) Neutrophils # (Auto) 8.6 x10^3uL (1.8-7.7) 6.2 x10^3uL (1.8-7.7) Lymphocytes # (Auto) 0.6 x10^3/uL (1.0-4.8) 0.6 x10^3/uL (1.0-4.8) Monocytes # (Auto) 0.3 x10^3/uL (0.0-1.1) 0.3 x10^3/uL (0.0-1.1) Eosinophils # (Auto) 0.0 x10^3/uL (0.0-0.7) 0.0 x10^3/uL (0.0-0.7) Basophils # (Auto) 0.0 x10^3/uL (0.0-0.2) 0.0 x10^3/uL (0.0-0.2) Segmented Neutrophils % 87 % (35-66) Lymphocytes % 10 % (24-48) Monocytes % 3 % (0-10) Platelet Estimate Adequate (ADEQUATE) Sodium Level 142 mmol/L (136-145) 144 mmol/L (136-145) Potassium Level 3.6 mmol/L (3.5-5.1) 3.8 mmol/L (3.5-5.1) Chloride Level 104 mmol/L (98-107) 106 mmol/L (98-107) Carbon Dioxide Level 28 mmol/L (21-32) 28 mmol/L (21-32) Anion Gap 10 (6-14) 10 (6-14) Blood Urea Nitrogen 11 mg/dL (8-26) 12 mg/dL (8-26) Creatinine 0.9 mg/dL (0.7-1.3) 0.8 mg/dL (0.7-1.3) Estimated GFR (Cockcroft-Gault) 101.5 116.3 Glucose Level 199 mg/dL (70-99) 131 mg/dL (70-99) Lactic Acid Level 3.2 mmol/L (0.4-2.0) 2.5 mmol/L (0.4-2.0) Calcium Level 9.1 mg/dL (8.5-10.1) 8.1 mg/dL (8.5-10.1) Total Bilirubin 0.9 mg/dL (0.2-1.0) Direct Bilirubin 0.2 mg/dL (0.0-0.2) Aspartate Amino Transf (AST/SGOT) 23 U/L (15-37) Alanine Aminotransferase (ALT/SGPT) 30 U/L (16-63) Alkaline Phosphatase 97 U/L (46-116) Troponin I Quantitative 0.022 ng/mL (0.000-0.055) EZ-Idf-M-Type Natriuretic Peptide 1376 pg/mL (0-124) Total Protein 7.8 g/dL (6.4-8.2) Albumin 3.6 g/dL (3.4-5.0) Lipase 68 U/L (73-393) Urine Collection Type Unknown Urine Color Yellow Urine Clarity Cloudy Urine pH 5.5 Urine Specific [place] 1.015 Urine Protein Negative mg/dL (NEG-TRACE) Urine Glucose (UA) Negative mg/dL (NEG) Urine Ketones (Stick) Negative mg/dL (NEG) Urine Blood Moderate (NEG) Urine Nitrite Positive (NEG) Urine Bilirubin Negative (NEG) Urine Urobilinogen Dipstick 0.2 mg/dL (0.2 mg/dL) Urine Leukocyte Esterase Moderate (NEG) Urine RBC 3-5 /HPF (0-2) Urine WBC 5-10 /HPF (0-4) Urine Squamous Epithelial Cells Occ /LPF Urine Bacteria Moderate /HPF (0-FEW) Urine Mucus Mod /LPF Laboratory Tests Test 05/14/17 15:05 05/14/17 15:15 05/14/17 18:20 05/15/17 03:20 White Blood Count 9.4 x10^3/uL (4.0-11.0) 7.1 x10^3/uL (4.0-11.0) Red Blood Count 4.44 x10^6/uL (4.30-5.70) 3.99 x10^6/uL (4.30-5.70) Hemoglobin 11.8 g/dL (13.0-17.5) 10.6 g/dL (13.0-17.5) Hematocrit 37.1 % (39.0-53.0) 33.1 % (39.0-53.0) Mean Corpuscular Volume 84 fL (79-100) 83 fL (79-100) Mean Corpuscular Hemoglobin 27 pg (25-35) 26 pg (25-35) Mean Corpuscular Hemoglobin Concent 32 g/dL (31-37) 32 g/dL (31-37) Red Cell Distribution Width 15.1 % (11.5-14.5) 15.2 % (11.5-14.5) Platelet Count 197 x10^3/uL (140-400) 205 x10^3/uL (140-400) Neutrophils (%) (Auto) 91 % (31-73) 87 % (31-73) Lymphocytes (%) (Auto) 6 % (24-48) 8 % (24-48) Monocytes (%) (Auto) 3 % (0-9) 5 % (0-9) Eosinophils (%) (Auto) 0 % (0-3) 0 % (0-3) Basophils (%) (Auto) 0 % (0-3) 0 % (0-3) Neutrophils # (Auto) 8.6 x10^3uL (1.8-7.7) 6.2 x10^3uL (1.8-7.7) Lymphocytes # (Auto) 0.6 x10^3/uL (1.0-4.8) 0.6 x10^3/uL (1.0-4.8) Monocytes # (Auto) 0.3 x10^3/uL (0.0-1.1) 0.3 x10^3/uL (0.0-1.1) Eosinophils # (Auto) 0.0 x10^3/uL (0.0-0.7) 0.0 x10^3/uL (0.0-0.7) Basophils # (Auto) 0.0 x10^3/uL (0.0-0.2) 0.0 x10^3/uL (0.0-0.2) Segmented Neutrophils % 87 % (35-66) Lymphocytes % 10 % (24-48) Monocytes % 3 % (0-10) Platelet Estimate Adequate (ADEQUATE) Sodium Level 142 mmol/L (136-145) 144 mmol/L (136-145) Potassium Level 3.6 mmol/L (3.5-5.1) 3.8 mmol/L (3.5-5.1) Chloride Level 104 mmol/L (98-107) 106 mmol/L (98-107) Carbon Dioxide Level 28 mmol/L (21-32) 28 mmol/L (21-32) Anion Gap 10 (6-14) 10 (6-14) Blood Urea Nitrogen 11 mg/dL (8-26) 12 mg/dL (8-26) Creatinine 0.9 mg/dL (0.7-1.3) 0.8 mg/dL (0.7-1.3) Estimated GFR (Cockcroft-Gault) 101.5 116.3 Glucose Level 199 mg/dL (70-99) 131 mg/dL (70-99) Lactic Acid Level 3.2 mmol/L (0.4-2.0) 2.5 mmol/L (0.4-2.0) Calcium Level 9.1 mg/dL (8.5-10.1) 8.1 mg/dL (8.5-10.1) Total Bilirubin 0.9 mg/dL (0.2-1.0) Direct Bilirubin 0.2 mg/dL (0.0-0.2) Aspartate Amino Transf (AST/SGOT) 23 U/L (15-37) Alanine Aminotransferase (ALT/SGPT) 30 U/L (16-63) Alkaline Phosphatase 97 U/L (46-116) Troponin I Quantitative 0.022 ng/mL (0.000-0.055) QC-Eam-G-Type Natriuretic Peptide 1376 pg/mL (0-124) Total Protein 7.8 g/dL (6.4-8.2) Albumin 3.6 g/dL (3.4-5.0) Lipase 68 U/L (73-393) Urine Collection Type Unknown Urine Color Yellow Urine Clarity Cloudy Urine pH 5.5 Urine Specific [place] 1.015 Urine Protein Negative mg/dL (NEG-TRACE) Urine Glucose (UA) Negative mg/dL (NEG) Urine Ketones (Stick) Negative mg/dL (NEG) Urine Blood Moderate (NEG) Urine Nitrite Positive (NEG) Urine Bilirubin Negative (NEG) Urine Urobilinogen Dipstick 0.2 mg/dL (0.2 mg/dL) Urine Leukocyte Esterase Moderate (NEG) Urine RBC 3-5 /HPF (0-2) Urine WBC 5-10 /HPF (0-4) Urine Squamous Epithelial Cells Occ /LPF Urine Bacteria Moderate /HPF (0-FEW) Urine Mucus Mod /LPF Medications Current Medications Nitroglycerin (Nitrostat) 0.4 mg PRN Q5MIN PRN SL CHEST PAIN; Start 05/14/17 at 14:30 Sodium Chloride 1,000 ml @ 2,520 mls/hr Q24M IV Last administered on 18:02; Start 05/14/17 at 16:13; Stop 05/14/17 at 17:12; Status DC Vancomycin HCl (Vanco Per Pharmacy) 1 each PRN DAILY PRN MC SEE COMMENTS Last administered on 05/14/17 18:19; Start 05/14/17 at 16:15 Piperacillin Sod/ Tazobactam Sod (Zosyn Per Pharmacy) 1 each PRN DAILY PRN MC SEE COMMENTS; Start 05/14/17 at 16:15 Vancomycin HCl 2 gm/Sodium Chloride 500 ml @ 250 mls/hr 1X ONCE IV Last administered on 05/14/17 17:28; Start 05/14/17 at 16:30; Stop 05/14/17 at 18:29 ; Status DC Piperacillin Sod/ Tazobactam Sod 4.5 gm/Sodium Chloride 100 ml @ 200 mls/hr 1X ONCE IV Last administered on 05/14/17 16:45; Start 05/14/17 at 16:30; Stop 05/14/17 at 16:59; Status DC Vancomycin HCl 1.25 gm/Sodium Chloride 250 ml @ 167 mls/hr Q12H IV Last administered on 05/15/17 04:18; Start 05/15/17 at 05:00 Ondansetron HCl (Zofran) 4 mg 1X ONCE IV Last administered on 05/14/17 18:15 ; Start 05/14/17 at 18:15; Stop 05/14/17 at 18:18; Status DC Ondansetron HCl (Zofran) 4 mg STK-MED ONCE .ROUTE ; Start 05/14/17 at 18:11; Stop 05/14/17 at 18:12; Status DC Ondansetron HCl (Zofran) 4 mg PRN Q8HRS PRN IV NAUSEA/VOMITING; Start 05/14/17 at 18:15; Stop 05/15/17 at 18:14 Morphine Sulfate 2 mg PRN Q2HR PRN IV PAIN; Start 05/14/17 at 18:15; Stop 05/15 at 18:14 Vancomycin HCl 1 each 1X ONCE MC ; Start 05/16/17 at 04:30; Stop 05/16/17 at 04 :31 Piperacillin Sod/ Tazobactam Sod 4.5 gm/Sodium Chloride 100 ml @ 200 mls/hr Q6HRS IV Last administered on 05/15/17 05:21; Start 05/14/17 at 23:00 Albuterol Sulfate (Ventolin Neb Soln) 2.5 mg PRN QID PRN NEB ASTHMA; Start at 19:30 Atorvastatin Calcium (Lipitor) 40 mg QHS PO Last administered on 05/14/17 20: 53; Start 05/14/17 at 21:00 Clopidogrel Bisulfate (Plavix) 75 mg DAILYWBKFT PO Last administered on 09:44; Start 05/15/17 at 08:00 Furosemide (Lasix) 40 mg DAILY PO Last administered on 05/15/17 09:45; Start 05/15/17 at 09:00 Lisinopril (Prinivil) 2.5 mg DAILY PO Last administered on 05/15/17 09:46; Start 05/15/17 at 09:00 Metoprolol Succinate (Toprol Xl) 25 mg DAILY PO Last administered on 05/15/17 09:45; Start 05/15/17 at 09:00 Potassium Chloride (Klor-Con) 10 meq DAILYWBKFT PO Last administered on 09:44; Start 05/15/17 at 08:00 Tamsulosin HCl (Flomax) 0.8 mg QHS PO Last administered on 05/14/17 20:53; Start 05/14/17 at 21:00 Acetaminophen (Tylenol) 650 mg PRN Q6HRS PRN PO Headache; Start 05/15/17 at 10: 45 Active Scripts Active Klor-Con M10 (Potassium Chloride) 10 Meq Tab.er.prt 10 Meq PO DAILYWBKFT Metoprolol Succinate ( Xl ) (Metoprolol Succinate) 25 Mg Tab.er.24h 25 Mg PO DAILY Lisinopril 2.5 Mg Tablet 2.5 Mg PO DAILY Furosemide 40 Mg Tablet 40 Mg PO DAILY Clopidogrel (Clopidogrel Bisulfate) 75 Mg Tablet 75 Mg PO DAILYWBKFT Reported Albuterol Sulfate Neb Soln (Albuterol Sulfate) 2.5 Mg/3 Ml Vial.neb 2.5 Mg NEB QID PRN Flomax (Tamsulosin Hcl) 0.4 Mg Cap.er.24h 2 Cap PO DAILY Lipitor (Atorvastatin Calcium) 40 Mg Tablet 1 Tab PO QHS Tylenol (Acetaminophen) 325 Mg Tablet 1-2 Tab PO Q6HRS PRN Vitals/I & O Vital Sign - Last 24 Hours 05/14/17 05/14/17 05/14/17 05/14/17 13:32 13:40 14:21 15:54 Pulse 77 77 83 86 Resp 18 18 18 19 B/P (MAP) 124/68 (86) 124/68 (86) 123/76 (92) 114/60 (78) Pulse Ox 98 96 98 98 O2 Delivery Room Air Room Air Room Air Room Air 05/14/17 05/14/17 05/14/17 05/14/17 16:24 16:54 17:30 17:54 Pulse 88 95 93 92 Resp 20 21 19 20 B/P (MAP) 115/67 (83) 106/80 (89) 120/83 (95) 150/93 (112) Pulse Ox 98 97 96 96 O2 Delivery Room Air Room Air Room Air Room Air 05/14/17 05/14/17 05/14/17 05/14/17 18:24 19:30 20:00 23:10 Temp 96.8 98.1 96.8 98.1 Pulse 92 96 102 Resp 21 18 18 B/P (MAP) 124/87 (99) 105/68 (80) 116/80 (92) Pulse Ox 96 97 96 O2 Delivery Room Air Room Air Room Air Room Air 05/15/17 05/15/17 05/15/17 05/15/17 03:20 07:00 09:45 09:46 Temp 97.9 97.9 97.9 97.9 Pulse 91 99 99 99 Resp 18 20 B/P (MAP) 112/79 (90) 105/77 (86) 105/77 105/77 Pulse Ox 97 95 O2 Delivery Room Air Room Air 05/15/17 11:00 Temp 98.1 98.1 Pulse 99 Resp 20 B/P (MAP) 123/80 (94) Pulse Ox 94 O2 Delivery Room Air Intake and Output 05/14/17 05/14/17 05/15/17 14:59 22:59 06:59 Intake Total 100 ml 0 ml Output Total 725 ml Balance 100 ml -725 ml NICO ALVAREZ III DO May 15, 2017 11:51
[2017-05-15] MEDS: VANCOMYCIN PER PHARMACY MC PRN (13:26)
--- NOTE | 2017-05-15 13:34 | PDOC2 ---
NEUROLOGY CONSULT Date of Admission Date of Admission DATE: 05/15/17 TIME: 13:18 Reason for Consult Reason for Consult: IMPRESSION: Right eye vision disturbance x 1 day. Dizziness x 1 day. Intermittent headaches. Generalized weakness. UTI, acute DM HLD COPD RECOMMENDATIONS/PLAN: Continue plavix 75 mg daily. Continue Lipitor 40 mg HS. Brain MRI w/o contrast. Lab: see orders. Treat UTI Treat medical diseases. OT/PT. HISTORY OF THE PRESENT ILLNESS: 66-y-old AA male patient with symptoms of prolonged generalized weakness and malaise to come to the ER of [facility]. He was hospitalized for further evaluation. He later complained right eye vision disturbance for 1 day described as twisted vision with imagine changes and abnormality when he steven down to his right side. He also has dizziness and intermitted headaches, so neurology was called for consultation. He stated he did not have symptoms like these before. PAST MEDICAL HISTORY: Please see above. PAST SURGERY HISTORY: No major surgery recently. ALLERGY: Reviewed. MEDICATIONS: Refer to [facility] HISTORY: Non contributory. SOCIAL HISTORY: Lives at home. Denies current smoking, drinking, and illicit drug use. He smoked cigarettes in the past but quit many years ago. He drank alcohol in the past but quit about 20 years ago. REVIEW OF SYSTEMS: Constitutional: No malnutrition, weight loss, cachexia. Head: No traumatic brain or head injury. Skin: No edema, or rash. Ear: Chronic bilateral tinnitus. Eyes: No vision loss or color blindness. Nose: No bleeding or purulent discharges. Hearing: Hearing decrease. Neck: No injury. Cardiac: HLD. Pulmonary: No COPD. GI: No GI ulcer, GI bleeding. Urinary/genital: UTI. Endocrinologic: Diabetes Mellitus. Skeletomuscular: Generalized weakness. Neurological: see HP. Psychiatric: Denies drug use/abuse. Otherwise, not [id number] review of systems. PHYSICAL EXAMINATION: General appearance is in subacute distress. HEENT: Normocephalic and nontraumatic. Eyes, nose, ears, and throat are unremarkable. Neck is supple. No lymphadenopathy. No crepitus. Cardiovascular: S1, S2, regular rate and rhythm. Pulmonary: Clear to auscultation bilaterally. Abdomen: Bowel sounds are positive. Abdomen is soft, nontender, and nondistended. Extremities: No rash, lesions, or edema. No restriction of range of motion NEUROLOGICAL EXAMINATION: Alert Oriented to time, place and person. PERRL. EOMI. Mild bilateral horizontal nystagmus noted from time to time. CN: no focal findings. Muscle tone: within normal. Muscle strength: 5 DTR: 2 Plantar reflex: Flexor response bilaterally Gait: not examined in bed. Sensory exam: no abnormal findings. No cerebellar signs elicited. F-T-N test fine. Current Medications Current Medications Current Medications Nitroglycerin (Nitrostat) 0.4 mg PRN Q5MIN PRN SL CHEST PAIN; Start 05/14/17 at 14:30 Sodium Chloride 1,000 ml @ 2,520 mls/hr Q24M IV Last administered on 18:02; Start 05/14/17 at 16:13; Stop 05/14/17 at 17:12; Status DC Vancomycin HCl (Vanco Per Pharmacy) 1 each PRN DAILY PRN MC SEE COMMENTS Last administered on 05/14/17 18:19; Start 05/14/17 at 16:15 Piperacillin Sod/ Tazobactam Sod (Zosyn Per Pharmacy) 1 each PRN DAILY PRN MC SEE COMMENTS; Start 05/14/17 at 16:15 Vancomycin HCl 2 gm/Sodium Chloride 500 ml @ 250 mls/hr 1X ONCE IV Last administered on 05/14/17 17:28; Start 05/14/17 at 16:30; Stop 05/14/17 at 18:29 ; Status DC Piperacillin Sod/ Tazobactam Sod 4.5 gm/Sodium Chloride 100 ml @ 200 mls/hr 1X ONCE IV Last administered on 05/14/17 16:45; Start 05/14/17 at 16:30; Stop 05/14/17 at 16:59; Status DC Vancomycin HCl 1.25 gm/Sodium Chloride 250 ml @ 167 mls/hr Q12H IV Last administered on 05/15/17 04:18; Start 05/15/17 at 05:00 Ondansetron HCl (Zofran) 4 mg 1X ONCE IV Last administered on 05/14/17 18:15 ; Start 05/14/17 at 18:15; Stop 05/14/17 at 18:18; Status DC Ondansetron HCl (Zofran) 4 mg STK-MED ONCE .ROUTE ; Start 05/14/17 at 18:11; Stop 05/14/17 at 18:12; Status DC Ondansetron HCl (Zofran) 4 mg PRN Q8HRS PRN IV NAUSEA/VOMITING; Start 05/14/17 at 18:15; Stop 05/15/17 at 18:14 Morphine Sulfate 2 mg PRN Q2HR PRN IV PAIN; Start 05/14/17 at 18:15; Stop 05/15 at 18:14 Vancomycin HCl 1 each 1X ONCE MC ; Start 05/16/17 at 04:30; Stop 05/16/17 at 04 :31 Piperacillin Sod/ Tazobactam Sod 4.5 gm/Sodium Chloride 100 ml @ 200 mls/hr Q6HRS IV Last administered on 05/15/17 05:21; Start 05/14/17 at 23:00 Albuterol Sulfate (Ventolin Neb Soln) 2.5 mg PRN QID PRN NEB ASTHMA; Start at 19:30 Atorvastatin Calcium (Lipitor) 40 mg QHS PO Last administered on 05/14/17 20: 53; Start 05/14/17 at 21:00 Clopidogrel Bisulfate (Plavix) 75 mg DAILYWBKFT PO Last administered on 09:44; Start 05/15/17 at 08:00 Furosemide (Lasix) 40 mg DAILY PO Last administered on 05/15/17 09:45; Start 05/15/17 at 09:00 Lisinopril (Prinivil) 2.5 mg DAILY PO Last administered on 05/15/17 09:46; Start 05/15/17 at 09:00 Metoprolol Succinate (Toprol Xl) 25 mg DAILY PO Last administered on 05/15/17 09:45; Start 05/15/17 at 09:00 Potassium Chloride (Klor-Con) 10 meq DAILYWBKFT PO Last administered on 09:44; Start 05/15/17 at 08:00 Tamsulosin HCl (Flomax) 0.8 mg QHS PO Last administered on 05/14/17 20:53; Start 05/14/17 at 21:00 Acetaminophen (Tylenol) 650 mg PRN Q6HRS PRN PO Headache; Start 05/15/17 at 10: 45 Active Scripts Active Klor-Con M10 (Potassium Chloride) 10 Meq Tab.er.prt 10 Meq PO DAILYWBKFT Metoprolol Succinate ( Xl ) (Metoprolol Succinate) 25 Mg Tab.er.24h 25 Mg PO DAILY Lisinopril 2.5 Mg Tablet 2.5 Mg PO DAILY Furosemide 40 Mg Tablet 40 Mg PO DAILY Clopidogrel (Clopidogrel Bisulfate) 75 Mg Tablet 75 Mg PO DAILYWBKFT Reported Albuterol Sulfate Neb Soln (Albuterol Sulfate) 2.5 Mg/3 Ml Vial.neb 2.5 Mg NEB QID PRN Flomax (Tamsulosin Hcl) 0.4 Mg Cap.er.24h 2 Cap PO DAILY Lipitor (Atorvastatin Calcium) 40 Mg Tablet 1 Tab PO QHS Tylenol (Acetaminophen) 325 Mg Tablet 1-2 Tab PO Q6HRS PRN Allergies Allergies: Coded Allergies: No Known Drug Allergies (Unverified , 04/24/17) Vitals VITALS Vital Signs Date Time Temp Pulse Resp B/P (MAP) Pulse Ox O2 Delivery O2 Flow Rate FiO2 05/15/17 11:00 98.1 99 20 123/80 (94) 94 Room Air 98.1 Labs Labs Laboratory Tests Test 05/14/17 15:05 05/14/17 15:15 05/14/17 18:20 05/15/17 03:20 White Blood Count 9.4 x10^3/uL (4.0-11.0) 7.1 x10^3/uL (4.0-11.0) Red Blood Count 4.44 x10^6/uL (4.30-5.70) 3.99 x10^6/uL (4.30-5.70) Hemoglobin 11.8 g/dL (13.0-17.5) 10.6 g/dL (13.0-17.5) Hematocrit 37.1 % (39.0-53.0) 33.1 % (39.0-53.0) Mean Corpuscular Volume 84 fL (79-100) 83 fL (79-100) Mean Corpuscular Hemoglobin 27 pg (25-35) 26 pg (25-35) Mean Corpuscular Hemoglobin Concent 32 g/dL (31-37) 32 g/dL (31-37) Red Cell Distribution Width 15.1 % (11.5-14.5) 15.2 % (11.5-14.5) Platelet Count 197 x10^3/uL (140-400) 205 x10^3/uL (140-400) Neutrophils (%) (Auto) 91 % (31-73) 87 % (31-73) Lymphocytes (%) (Auto) 6 % (24-48) 8 % (24-48) Monocytes (%) (Auto) 3 % (0-9) 5 % (0-9) Eosinophils (%) (Auto) 0 % (0-3) 0 % (0-3) Basophils (%) (Auto) 0 % (0-3) 0 % (0-3) Neutrophils # (Auto) 8.6 x10^3uL (1.8-7.7) 6.2 x10^3uL (1.8-7.7) Lymphocytes # (Auto) 0.6 x10^3/uL (1.0-4.8) 0.6 x10^3/uL (1.0-4.8) Monocytes # (Auto) 0.3 x10^3/uL (0.0-1.1) 0.3 x10^3/uL (0.0-1.1) Eosinophils # (Auto) 0.0 x10^3/uL (0.0-0.7) 0.0 x10^3/uL (0.0-0.7) Basophils # (Auto) 0.0 x10^3/uL (0.0-0.2) 0.0 x10^3/uL (0.0-0.2) Segmented Neutrophils % 87 % (35-66) Lymphocytes % 10 % (24-48) Monocytes % 3 % (0-10) Platelet Estimate Adequate (ADEQUATE) Sodium Level 142 mmol/L (136-145) 144 mmol/L (136-145) Potassium Level 3.6 mmol/L (3.5-5.1) 3.8 mmol/L (3.5-5.1) Chloride Level 104 mmol/L (98-107) 106 mmol/L (98-107) Carbon Dioxide Level 28 mmol/L (21-32) 28 mmol/L (21-32) Anion Gap 10 (6-14) 10 (6-14) Blood Urea Nitrogen 11 mg/dL (8-26) 12 mg/dL (8-26) Creatinine 0.9 mg/dL (0.7-1.3) 0.8 mg/dL (0.7-1.3) Estimated GFR (Cockcroft-Gault) 101.5 116.3 Glucose Level 199 mg/dL (70-99) 131 mg/dL (70-99) Lactic Acid Level 3.2 mmol/L (0.4-2.0) 2.5 mmol/L (0.4-2.0) Calcium Level 9.1 mg/dL (8.5-10.1) 8.1 mg/dL (8.5-10.1) Total Bilirubin 0.9 mg/dL (0.2-1.0) Direct Bilirubin 0.2 mg/dL (0.0-0.2) Aspartate Amino Transf (AST/SGOT) 23 U/L (15-37) Alanine Aminotransferase (ALT/SGPT) 30 U/L (16-63) Alkaline Phosphatase 97 U/L (46-116) Troponin I Quantitative 0.022 ng/mL (0.000-0.055) MX-Ewd-Q-Type Natriuretic Peptide 1376 pg/mL (0-124) Total Protein 7.8 g/dL (6.4-8.2) Albumin 3.6 g/dL (3.4-5.0) Lipase 68 U/L (73-393) Urine Collection Type Unknown Urine Color Yellow Urine Clarity Cloudy Urine pH 5.5 Urine Specific Kimper 1.015 Urine Protein Negative mg/dL (NEG-TRACE) Urine Glucose (UA) Negative mg/dL (NEG) Urine Ketones (Stick) Negative mg/dL (NEG) Urine Blood Moderate (NEG) Urine Nitrite Positive (NEG) Urine Bilirubin Negative (NEG) Urine Urobilinogen Dipstick 0.2 mg/dL (0.2 mg/dL) Urine Leukocyte Esterase Moderate (NEG) Urine RBC 3-5 /HPF (0-2) Urine WBC 5-10 /HPF (0-4) Urine Squamous Epithelial Cells Occ /LPF Urine Bacteria Moderate /HPF (0-FEW) Urine Mucus Mod /LPF Creatine Kinase 125 U/L (39-308) Vitamin B12 Level 491 pg/mL (247-911) Thyroid Stimulating Hormone (TSH) 0.199 uIU/mL (0.358-3.74) Laboratory Tests Test 05/14/17 15:05 05/14/17 15:15 05/14/17 18:20 05/15/17 03:20 White Blood Count 9.4 x10^3/uL (4.0-11.0) 7.1 x10^3/uL (4.0-11.0) Red Blood Count 4.44 x10^6/uL (4.30-5.70) 3.99 x10^6/uL (4.30-5.70) Hemoglobin 11.8 g/dL (13.0-17.5) 10.6 g/dL (13.0-17.5) Hematocrit 37.1 % (39.0-53.0) 33.1 % (39.0-53.0) Mean Corpuscular Volume 84 fL (79-100) 83 fL (79-100) Mean Corpuscular Hemoglobin 27 pg (25-35) 26 pg (25-35) Mean Corpuscular Hemoglobin Concent 32 g/dL (31-37) 32 g/dL (31-37) Red Cell Distribution Width 15.1 % (11.5-14.5) 15.2 % (11.5-14.5) Platelet Count 197 x10^3/uL (140-400) 205 x10^3/uL (140-400) Neutrophils (%) (Auto) 91 % (31-73) 87 % (31-73) Lymphocytes (%) (Auto) 6 % (24-48) 8 % (24-48) Monocytes (%) (Auto) 3 % (0-9) 5 % (0-9) Eosinophils (%) (Auto) 0 % (0-3) 0 % (0-3) Basophils (%) (Auto) 0 % (0-3) 0 % (0-3) Neutrophils # (Auto) 8.6 x10^3uL (1.8-7.7) 6.2 x10^3uL (1.8-7.7) Lymphocytes # (Auto) 0.6 x10^3/uL (1.0-4.8) 0.6 x10^3/uL (1.0-4.8) Monocytes # (Auto) 0.3 x10^3/uL (0.0-1.1) 0.3 x10^3/uL (0.0-1.1) Eosinophils # (Auto) 0.0 x10^3/uL (0.0-0.7) 0.0 x10^3/uL (0.0-0.7) Basophils # (Auto) 0.0 x10^3/uL (0.0-0.2) 0.0 x10^3/uL (0.0-0.2) Segmented Neutrophils % 87 % (35-66) Lymphocytes % 10 % (24-48) Monocytes % 3 % (0-10) Platelet Estimate Adequate (ADEQUATE) Sodium Level 142 mmol/L (136-145) 144 mmol/L (136-145) Potassium Level 3.6 mmol/L (3.5-5.1) 3.8 mmol/L (3.5-5.1) Chloride Level 104 mmol/L (98-107) 106 mmol/L (98-107) Carbon Dioxide Level 28 mmol/L (21-32) 28 mmol/L (21-32) Anion Gap 10 (6-14) 10 (6-14) Blood Urea Nitrogen 11 mg/dL (8-26) 12 mg/dL (8-26) Creatinine 0.9 mg/dL (0.7-1.3) 0.8 mg/dL (0.7-1.3) Estimated GFR (Cockcroft-Gault) 101.5 116.3 Glucose Level 199 mg/dL (70-99) 131 mg/dL (70-99) Lactic Acid Level 3.2 mmol/L (0.4-2.0) 2.5 mmol/L (0.4-2.0) Calcium Level 9.1 mg/dL (8.5-10.1) 8.1 mg/dL (8.5-10.1) Total Bilirubin 0.9 mg/dL (0.2-1.0) Direct Bilirubin 0.2 mg/dL (0.0-0.2) Aspartate Amino Transf (AST/SGOT) 23 U/L (15-37) Alanine Aminotransferase (ALT/SGPT) 30 U/L (16-63) Alkaline Phosphatase 97 U/L (46-116) Troponin I Quantitative 0.022 ng/mL (0.000-0.055) LT-Yrl-P-Type Natriuretic Peptide 1376 pg/mL (0-124) Total Protein 7.8 g/dL (6.4-8.2) Albumin 3.6 g/dL (3.4-5.0) Lipase 68 U/L (73-393) Urine Collection Type Unknown Urine Color Yellow Urine Clarity Cloudy Urine pH 5.5 Urine Specific Kimper 1.015 Urine Protein Negative mg/dL (NEG-TRACE) Urine Glucose (UA) Negative mg/dL (NEG) Urine Ketones (Stick) Negative mg/dL (NEG) Urine Blood Moderate (NEG) Urine Nitrite Positive (NEG) Urine Bilirubin Negative (NEG) Urine Urobilinogen Dipstick 0.2 mg/dL (0.2 mg/dL) Urine Leukocyte Esterase Moderate (NEG) Urine RBC 3-5 /HPF (0-2) Urine WBC 5-10 /HPF (0-4) Urine Squamous Epithelial Cells Occ /LPF Urine Bacteria Moderate /HPF (0-FEW) Urine Mucus Mod /LPF Creatine Kinase 125 U/L (39-308) Vitamin B12 Level 491 pg/mL (247-911) Thyroid Stimulating Hormone (TSH) 0.199 uIU/mL (0.358-3.74) CHITO RIVERA MD May 15, 2017 13:34
[2017-05-15] MEDS: ACETAMINOPHEN 325 MG TABLET. PO PRN (14:19)
[2017-05-15 15:00] VITALS: BP 116/83
[2017-05-15] MEDS: MECLIZINE HCL 12.5 MG TABLET. PO SCH ×2 (16:11→21:20)
--- NOTE | 2017-05-15 16:28 | RAD ---
MRI Brain without contrast History: Headaches and visual changes for 2 days Technique: Multiplanar, multisequential noncontrast MR imaging was performed of the brain. Contrast: None Comparison: None Findings: There is motion degradation. Allowing for motion, no convincing restricted diffusion is identified to suggest an acute infarct. However there is a round 1.8 cm AP by 1.7 cm transverse by approximately 1.5 cm cc focus of abnormal signal located of the central posterior cerebellar vermis with associated diffuse decreased signal on the gradient echo sequence, slightly hyperintense on the T1 sequence and heterogeneous signal characteristics on T2 and FLAIR sequences. There is associated vasogenic edema signified by T2 and FLAIR hyperintense signal abnormality. While there is mild mass effect upon the posterior aspect of the fourth ventricle, fourth ventricle appears patent. Ventricles are not significantly dilated. No other focus with similar signal features is identified. There is other T2 and FLAIR hyperintense abnormality of the supratentorial white matter with more confluent signal change of the left parietal white matter, to lesser degree of the right parietal white matter. There is no midline shift. There is preservation of the major arterial intracranial flow voids at the skull base. There is patchy minimal ethmoid air cell mucosal thickening. Mastoid air cells are aerated. Cerebellar tonsils are normal in location. There is preservation of the marrow signal of the clivus. Impression: 1. There is a round 1.8 cm focus of signal abnormality of the posterior central cerebellum compatible with focus of acute/early subacute parenchymal hemorrhage with associated vasogenic edema. Underlying hemorrhage in a mass is a consideration, other consideration of hemorrhage within cavernous malformation. Hemorrhagic transformation of infarct is not favored given lack of significant diffusion signal change. Post contrast imaging would be beneficial, also to assess if enhancement associated with other areas of nonspecific T2 and FLAIR hyperintense abnormality. If the areas of supratentorial white matter signal change do not enhance, findings may be due to chronic microvascular ischemic disease.. FOR INTERNAL CODING PURPOSES Critical result: Findings discussed with patient's nurse Araceli at 05/15/2017 4:22 PM. RESULT CODE: (C) Electronically signed by: Yonny Schofield MD (05/15/2017 4:25 PM) [id number]
[2017-05-15] MEDS ORDERED: GADOBUTROL 7.5 MMOL/7.5 ML VIAL IV ONE (18:00)
[2017-05-15 19:00] VITALS: BP 104/69
--- NOTE | 2017-05-15 19:13 | RAD ---
MRI STUDY OF THE BRAIN WITH CONTRAST Clinical indications: Visual changes.. Technique: After IV infusion of 7.5 cc of Gadavist, postcontrast T1-weighted MRI sequence of the whole brain were performed. Images were obtained in axial, coronal, and sagittal planes. Diffusion weighted MRI sequence was performed as well. MRI study of the brain without contrast was performed earlier the same day with the additional sequences. Findings: The previously seen area of acute or early subacute hemorrhage of the midline of the cerebellum and vermis is again seen and has not changed significantly. There is peripheral rim type enhancement. The other areas of periventricular white matter hyperintensities do not enhance. Therefore this is consistent with chronic small vessel ischemic disease here. Impression: Again seen is an area of acute or early subacute hemorrhage within the midline of the cerebellum and the vermis which demonstrates peripheral rim type enhancement. This is consistent with enhancement around a late acute or early subacute hematoma. Given the lack of significant nodular enhancement or irregular enhancement, primary neoplasm is considered less likely. Given the lack of this type of enhancement or lack of enhancement of other areas of the brain, metastatic disease is considered less likely unless there is a history of primary malignancy. This may be related to hematoma in association with a cavernous malformation or related to hypertension. Given the lack of restricted diffusion on the diffusion-weighted images, ischemia is considered less likely. The periventricular white matter hyperintensities do not enhance consistent with chronic small vessel ischemic disease in this age group.. Note-this report was called to the patient's floor nurse Cailin at 7:06 PM on May 15, 2017. INTRACRANIAL MRA: Clinical indications: Same. Technique: 3-D [id number] gradient-echo MRI study of the intracranial arterial circulation was performed. Using a MIP algorithm, a 3-D reconstructed magnetic resonance arteriogram was generated and reviewed on a computer monitor. The measurements were performed using the NASCET criteria. Findings: No aneurysm is seen involving the kaw of [place]gado. No significant stenosis and no occlusive disease is seen. No abnormal "tuft" of vessels is seen to suggest an AVM.. Impression: Unremarkable intracranial magnetic resonance arteriogram. Electronically signed by: Kip Park MD (05/15/2017 7:10 PM) [id number]
--- NOTE | 2017-05-15 19:13 | RAD ---
MRI STUDY OF THE BRAIN WITH CONTRAST Clinical indications: Visual changes.. Technique: After IV infusion of 7.5 cc of Gadavist, postcontrast T1-weighted MRI sequence of the whole brain were performed. Images were obtained in axial, coronal, and sagittal planes. Diffusion weighted MRI sequence was performed as well. MRI study of the brain without contrast was performed earlier the same day with the additional sequences. Findings: The previously seen area of acute or early subacute hemorrhage of the midline of the cerebellum and vermis is again seen and has not changed significantly. There is peripheral rim type enhancement. The other areas of periventricular white matter hyperintensities do not enhance. Therefore this is consistent with chronic small vessel ischemic disease here. Impression: Again seen is an area of acute or early subacute hemorrhage within the midline of the cerebellum and the vermis which demonstrates peripheral rim type enhancement. This is consistent with enhancement around a late acute or early subacute hematoma. Given the lack of significant nodular enhancement or irregular enhancement, primary neoplasm is considered less likely. Given the lack of this type of enhancement or lack of enhancement of other areas of the brain, metastatic disease is considered less likely unless there is a history of primary malignancy. This may be related to hematoma in association with a cavernous malformation or related to hypertension. Given the lack of restricted diffusion on the diffusion-weighted images, ischemia is considered less likely. The periventricular white matter hyperintensities do not enhance consistent with chronic small vessel ischemic disease in this age group.. Note-this report was called to the patient's floor nurse Cailin at 7:06 PM on May 15, 2017. INTRACRANIAL MRA: Clinical indications: Same. Technique: 3-D [id number] gradient-echo MRI study of the intracranial arterial circulation was performed. Using a MIP algorithm, a 3-D reconstructed magnetic resonance arteriogram was generated and reviewed on a computer monitor. The measurements were performed using the NASCET criteria. Findings: No aneurysm is seen involving the [place] of [place]. No significant stenosis and no occlusive disease is seen. No abnormal "tuft" of vessels is seen to suggest an AVM.. Impression: Unremarkable intracranial magnetic resonance arteriogram. Electronically signed by: Kip Park MD (05/15/2017 7:10 PM) [id number]
[2017-05-15] MEDS: TAMSULOSIN 0.4 MG CAP.ER.24H. PO SCH (21:20)
[2017-05-15] MEDS: ATORVASTATIN CALCIUM 40 MG TABLET. PO SCH (21:20)
[2017-05-15 23:09] VITALS: BP 96/69
[2017-05-16 00:28] LABS: BARBITURATES NEG (NEG); BENZODIAZEPINES NEG (NEG); CANNABINOIDS NEG (NEG); COCAINE NEG (NEG); METHADONE NEG (NEG); OPIATES NEG (NEG); PHENCYCLIDINE NEG (NEG)
[2017-05-16 03:16] VITALS: BP 99/69
[2017-05-16] MEDS: VANCOMYCIN 1.25 GM in IV NORMAL SALINE 250ML 250 ML IV SCH (04:55)
[2017-05-16 05:16] LABS: BASO % 0 % (0-3); EOS % 2 % (0-3); HEMOGLOBIN 11.3 g/dL (13.0-17.5); LYMPH # 1.6 x10^3/uL (1.0-4.8); LYMPH % 31 % (24-48); MEAN CORPUSCULAR HEMOGLOBIN 27 pg (25-35); MEAN CORPUSCULAR HGB CONC 33 g/dL (31-37); MEAN CORPUSCULAR VOLUME 81 fL (79-100); MONO % 10 % (0-9); NEUT % 57 % (31-73); PLATELET COUNT 185 x10^3/uL (140-400); RED BLOOD COUNT 4.18 x10^6/uL (4.30-5.70); RED CELL DISTRIBUTION WIDTH 15.2 % (11.5-14.5)
[2017-05-16 05:28] LABS: CALCIUM 8.7 mg/dL (8.5-10.1); CREATININE 0.9 mg/dL (0.7-1.3); GFR 101.5; POTASSIUM 3.3 mmol/L (3.5-5.1)
[2017-05-16] MEDS: PIPERACILLIN/TAZOBACTAM 4.5 GM in IV NORMAL SALINE 100ML 100 ML IV SCH ×3 (06:22→17:50)
[2017-05-16 07:00] VITALS: BP 97/72
[2017-05-16] MEDS: LISINOPRIL 2.5 MG TABLET PO SCH (08:18)
[2017-05-16] MEDS: METOPROLOL SUCC 24HR ER 25 MG TAB.ER.24H. PO SCH ×2 (08:18→10:08)
[2017-05-16] MEDS: MECLIZINE HCL 12.5 MG TABLET. PO SCH ×3 (08:19→21:07)
[2017-05-16] MEDS: POTASSIUM CHLORIDE 10 MEQ TABLET.ER. PO SCH (08:19)
[2017-05-16] MEDS: CLOPIDOGREL BISULFATE 75 MG TABLET PO SCH (08:20)
[2017-05-16] MEDS: FUROSEMIDE 40 MG TABLET. PO SCH (08:20)
[2017-05-16] MEDS ORDERED: MAGNESIUM SULFATE 2GM 50 ML IV ONE ×2 (09:00→10:30)
[2017-05-16] MEDS ORDERED: POTASSIUM CHLORIDE 20 MEQ TABLET.ER. PO ONE ×2 (09:00→15:00)
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
[2017-05-16] MEDS: ASPIRIN ENTERIC COATED 81 MG TABLET.DR. PO SCH (10:07)
[2017-05-16 11:00] VITALS: BP 102/67
[2017-05-16 15:00] VITALS: BP 110/76
--- NOTE | 2017-05-16 17:21 | PDOC ---
PROGRESS NOTES Assessment Assessment Acute/subacute hemorrhage in midline of cerebellums with cerebral edema. Right eye vision disturbance x 1 day. Dizziness x 1 day. Intermittent headaches. Generalized weakness. UTI, acute DM HLD CAD COPD RECOMMENDATIONS/PLAN: Hold Plavix 75 mg daily for 7-10 day. Continue Lipitor 40 mg HS. Treat UTI Treat medical diseases. OT/PT. Brain MRI w/wo contrast and MRA w/o contrast on 05/15/17: See above findings. HISTORY OF THE PRESENT ILLNESS: 66-y-old AA male patient with symptoms of prolonged generalized weakness and malaise to come to the ER of [facility]. He was hospitalized for further evaluation. He later complained right eye vision disturbance for 1 day described as twisted vision with imagine changes and abnormality when he steven down to his right side. He also has dizziness and intermitted headaches, so neurology was called for consultation. He stated he did not have symptoms like these before. He stated he is doing fine on 05/16 w/o recurrent vision disturbance in his right eye. PAST MEDICAL HISTORY: Please see above. PAST SURGERY HISTORY: No major surgery recently. ALLERGY: Reviewed. MEDICATIONS: Refer to [facility] FAMILY HISTORY: Non contributory. SOCIAL HISTORY: Lives at home. Denies current smoking, drinking, and illicit drug use. He smoked cigarettes in the past but quit many years ago. He drank alcohol in the past but quit about 20 years ago. REVIEW OF SYSTEMS: Constitutional: No malnutrition, weight loss, cachexia. Head: No traumatic brain or head injury. Skin: No edema, or rash. Ear: Chronic bilateral tinnitus. Eyes: No vision loss or color blindness. Nose: No bleeding or purulent discharges. Hearing: Hearing decrease. Neck: No injury. Cardiac: HLD. Pulmonary: No COPD. GI: No GI ulcer, GI bleeding. Urinary/genital: UTI. Endocrinologic: Diabetes Mellitus. Skeletomuscular: Generalized weakness. Neurological: see HP. Psychiatric: Denies drug use/abuse. Otherwise, not [id number] review of systems. PHYSICAL EXAMINATION: General appearance is in subacute distress. HEENT: Normocephalic and nontraumatic. Eyes, nose, ears, and throat are unremarkable. Neck is supple. No lymphadenopathy. No crepitus. Cardiovascular: S1, S2, regular rate and rhythm. Pulmonary: Clear to auscultation bilaterally. Abdomen: Bowel sounds are positive. Abdomen is soft, nontender, and nondistended. Extremities: No rash, lesions, or edema. No restriction of range of motion NEUROLOGICAL EXAMINATION: Alert Oriented to time, place and person. PERRL. EOMI. Mild bilateral horizontal nystagmus noted from time to time. CN: no focal findings. Muscle tone: within normal. Muscle strength: 5 DTR: 2 Plantar reflex: Flexor response bilaterally Gait: not examined in bed. Sensory exam: no abnormal findings. No cerebellar signs elicited. F-T-N test fine. Objective Objective Vital Signs Date Time Temp Pulse Resp B/P (MAP) Pulse Ox O2 Delivery O2 Flow Rate FiO2 05/16/17 15:00 98.3 94 20 110/76 (87) 96 Room Air 98.3 Intake and Output 05/16/17 06:59 Intake Total 2040 ml Output Total 3490 ml Balance -1450 ml Intake Oral 2040 ml Output Urine Total 3490 ml Vitals Signs Vitals VS - Last 72 Hours, by Label Date Time Temp Pulse Resp B/P (MAP) Pulse Ox O2 Delivery O2 Flow Rate FiO2 05/16/17 15:00 98.3 94 20 110/76 (87) 96 Room Air 98.3 05/16/17 11:00 97.7 92 20 102/67 (79) 94 Room Air 97.7 05/16/17 10:08 99 97/92 05/16/17 08:18 99 97/72 05/16/17 08:00 Room Air 05/16/17 07:00 97.9 99 20 97/72 (80) 96 Room Air 97.9 05/16/17 03:16 98.1 98 18 99/69 (79) 93 Room Air 98.1 05/15/17 23:09 98.1 91 18 96/69 (78) 95 Room Air 98.1 05/15/17 20:40 Room Air 05/15/17 19:00 97.5 95 18 104/69 (81) 98 Room Air 97.5 05/15/17 15:00 97.7 100 20 116/83 (94) 95 Room Air 97.7 05/15/17 11:00 98.1 99 20 123/80 (94) 94 Room Air 98.1 05/15/17 09:46 99 105/77 05/15/17 09:45 99 105/77 05/15/17 07:00 97.9 99 20 105/77 (86) 95 Room Air 97.9 Laboratory Laboratory Laboratory Tests Test 05/15/17 23:50 05/16/17 04:50 Urine Opiates Screen Neg (NEG) Urine Methadone Screen Neg (NEG) Urine Barbiturates Neg (NEG) Urine Phencyclidine Screen Neg (NEG) Urine Amphetamine/Methamphetamine Neg (NEG) Urine Benzodiazepines Screen Neg (NEG) Urine Cocaine Screen Neg (NEG) Urine Cannabinoids Screen Neg (NEG) Urine Ethyl Alcohol Neg (NEG) White Blood Count 5.0 x10^3/uL (4.0-11.0) Red Blood Count 4.18 x10^6/uL (4.30-5.70) Hemoglobin 11.3 g/dL (13.0-17.5) Hematocrit 34.0 % (39.0-53.0) Mean Corpuscular Volume 81 fL (79-100) Mean Corpuscular Hemoglobin 27 pg (25-35) Mean Corpuscular Hemoglobin Concent 33 g/dL (31-37) Red Cell Distribution Width 15.2 % (11.5-14.5) Platelet Count 185 x10^3/uL (140-400) Neutrophils (%) (Auto) 57 % (31-73) Lymphocytes (%) (Auto) 31 % (24-48) Monocytes (%) (Auto) 10 % (0-9) Eosinophils (%) (Auto) 2 % (0-3) Basophils (%) (Auto) 0 % (0-3) Neutrophils # (Auto) 2.8 x10^3uL (1.8-7.7) Lymphocytes # (Auto) 1.6 x10^3/uL (1.0-4.8) Monocytes # (Auto) 0.5 x10^3/uL (0.0-1.1) Eosinophils # (Auto) 0.1 x10^3/uL (0.0-0.7) Basophils # (Auto) 0.0 x10^3/uL (0.0-0.2) Sodium Level 145 mmol/L (136-145) Potassium Level 3.3 mmol/L (3.5-5.1) Chloride Level 108 mmol/L (98-107) Carbon Dioxide Level 29 mmol/L (21-32) Anion Gap 8 (6-14) Blood Urea Nitrogen 8 mg/dL (8-26) Creatinine 0.9 mg/dL (0.7-1.3) Estimated GFR (Cockcroft-Gault) 101.5 Glucose Level 114 mg/dL (70-99) Calcium Level 8.7 mg/dL (8.5-10.1) Magnesium Level 1.9 mg/dL (1.8-2.4) [id number]-[id number]-Type Natriuretic Peptide 6606 pg/mL (0-124) Microbiology 05/14/17 Blood Culture - Preliminary, Resulted NO GROWTH AFTER 1 DAY 05/14/17 Urine Culture - Final, Complete 05/14/17 Urine Culture Result 1 (KATHY) - Final, Complete 05/14/17 Antimicrobic Susceptibility - Final, Complete Medication Medications Current Medications Aspirin (Ecotrin) 81 mg DAILYWBKFT PO Last administered on 05/16/17 10:07; Start 05/16/17 at 09:30 Gadobutrol (Gadavist) 7.5 mmol 1X ONCE IV Last administered on 05/15/17 18:21 ; Start 05/15/17 at 18:00; Stop 05/15/17 at 18:01; Status DC Magnesium Sulfate/ Dextrose 50 ml @ 25 mls/hr 1X ONCE IV Last administered on 05/16/17 10:06; Start 05/16/17 at 09:00; Stop 05/16/17 at 10:59; Status DC Magnesium Sulfate/ Dextrose 50 ml @ 25 mls/hr 1X ONCE IV Last administered on 05/16/17 12:23; Start 05/16/17 at 10:30; Stop 05/16/17 at 12:29; Status DC Potassium Chloride (Klor-Con) 20 meq DAILYWBKFT PO ; Start 05/17/17 at 08:00 Potassium Chloride (Klor-Con) 40 meq 1X ONCE PO Last administered on 10:07; Start 05/16/17 at 09:00; Stop 05/16/17 at 09:04; Status DC Potassium Chloride (Klor-Con) 40 meq 1X ONCE PO Last administered on 14:45; Start 05/16/17 at 15:00; Stop 05/16/17 at 15:01; Status DC Vancomycin HCl 1 each 1X ONCE MC ; Start 05/16/17 at 16:30; Stop 05/16/17 at 16 :31; Status Cancel Comment Review of Relevant I have reviewed the following items raul (where applicable) has been applied. CHITO RIVERA MD May 16, 2017 17:20
[2017-05-16 19:25] VITALS: BP 120/88
--- NOTE | 2017-05-16 19:25 | PDOC ---
PROGRESS NOTES Chief Complaint Chief Complaint 1. Sepsis 2/2 UTI 2. Chest pain 3. COPD 4. HLP 5. Fibromyalgia 6. BPH 7. Diverticulosis History of Present Illness History of Present Illness pt states he is doing fine, he states this morning he noticed vision changes with misrepresented distance between objects in his room, saw neurology this am. otherwise he has no other complaints, denies fever and chills, no abnormal urinary issues Vitals Vitals Vital Signs Date Time Temp Pulse Resp B/P (MAP) Pulse Ox O2 Delivery O2 Flow Rate FiO2 05/16/17 15:00 98.3 94 20 110/76 (87) 96 Room Air 98.3 Physical Exam General: Alert, Oriented X3, Cooperative, No acute distress Heart: Regular rate (SR), Normal S1, Normal S2, Other (3/6 systolic murmur to LLS border) Lungs: Clear Abdomen: Soft, No tenderness Extremities: No cyanosis, No edema Skin: No breakdown, No significant lesion Labs LABS Laboratory Tests Test 05/15/17 23:50 05/16/17 04:50 Urine Opiates Screen Neg (NEG) Urine Methadone Screen Neg (NEG) Urine Barbiturates Neg (NEG) Urine Phencyclidine Screen Neg (NEG) Urine Amphetamine/Methamphetamine Neg (NEG) Urine Benzodiazepines Screen Neg (NEG) Urine Cocaine Screen Neg (NEG) Urine Cannabinoids Screen Neg (NEG) Urine Ethyl Alcohol Neg (NEG) White Blood Count 5.0 x10^3/uL (4.0-11.0) Red Blood Count 4.18 x10^6/uL (4.30-5.70) Hemoglobin 11.3 g/dL (13.0-17.5) Hematocrit 34.0 % (39.0-53.0) Mean Corpuscular Volume 81 fL (79-100) Mean Corpuscular Hemoglobin 27 pg (25-35) Mean Corpuscular Hemoglobin Concent 33 g/dL (31-37) Red Cell Distribution Width 15.2 % (11.5-14.5) Platelet Count 185 x10^3/uL (140-400) Neutrophils (%) (Auto) 57 % (31-73) Lymphocytes (%) (Auto) 31 % (24-48) Monocytes (%) (Auto) 10 % (0-9) Eosinophils (%) (Auto) 2 % (0-3) Basophils (%) (Auto) 0 % (0-3) Neutrophils # (Auto) 2.8 x10^3uL (1.8-7.7) Lymphocytes # (Auto) 1.6 x10^3/uL (1.0-4.8) Monocytes # (Auto) 0.5 x10^3/uL (0.0-1.1) Eosinophils # (Auto) 0.1 x10^3/uL (0.0-0.7) Basophils # (Auto) 0.0 x10^3/uL (0.0-0.2) Sodium Level 145 mmol/L (136-145) Potassium Level 3.3 mmol/L (3.5-5.1) Chloride Level 108 mmol/L (98-107) Carbon Dioxide Level 29 mmol/L (21-32) Anion Gap 8 (6-14) Blood Urea Nitrogen 8 mg/dL (8-26) Creatinine 0.9 mg/dL (0.7-1.3) Estimated GFR (Cockcroft-Gault) 101.5 Glucose Level 114 mg/dL (70-99) Calcium Level 8.7 mg/dL (8.5-10.1) Magnesium Level 1.9 mg/dL (1.8-2.4) OK-Wwz-Y-Type Natriuretic Peptide 6606 pg/mL (0-124) Review of Systems Review of Systems less visual changes co hunger Assessment and Plan Assessmemt and Plan Problems Medical Problems: (1) Urinary tract infection Status: Acute 1. Sepsis 2/2 UTI 2. Chest pain 3. COPD 4. HLP 5. Fibromyalgia 6. BPH 7. Diverticulosis Plan PTOT IV fluids Recheck labs Home meds Possible dc in am Problems: Comment Review of Relevant I have reviewed the following items raul (where applicable) has been applied. Labs Laboratory Tests Test 05/15/17 03:20 05/15/17 23:50 05/16/17 04:50 White Blood Count 7.1 x10^3/uL (4.0-11.0) 5.0 x10^3/uL (4.0-11.0) Red Blood Count 3.99 x10^6/uL (4.30-5.70) 4.18 x10^6/uL (4.30-5.70) Hemoglobin 10.6 g/dL (13.0-17.5) 11.3 g/dL (13.0-17.5) Hematocrit 33.1 % (39.0-53.0) 34.0 % (39.0-53.0) Mean Corpuscular Volume 83 fL (79-100) 81 fL (79-100) Mean Corpuscular Hemoglobin 26 pg (25-35) 27 pg (25-35) Mean Corpuscular Hemoglobin Concent 32 g/dL (31-37) 33 g/dL (31-37) Red Cell Distribution Width 15.2 % (11.5-14.5) 15.2 % (11.5-14.5) Platelet Count 205 x10^3/uL (140-400) 185 x10^3/uL (140-400) Neutrophils (%) (Auto) 87 % (31-73) 57 % (31-73) Lymphocytes (%) (Auto) 8 % (24-48) 31 % (24-48) Monocytes (%) (Auto) 5 % (0-9) 10 % (0-9) Eosinophils (%) (Auto) 0 % (0-3) 2 % (0-3) Basophils (%) (Auto) 0 % (0-3) 0 % (0-3) Neutrophils # (Auto) 6.2 x10^3uL (1.8-7.7) 2.8 x10^3uL (1.8-7.7) Lymphocytes # (Auto) 0.6 x10^3/uL (1.0-4.8) 1.6 x10^3/uL (1.0-4.8) Monocytes # (Auto) 0.3 x10^3/uL (0.0-1.1) 0.5 x10^3/uL (0.0-1.1) Eosinophils # (Auto) 0.0 x10^3/uL (0.0-0.7) 0.1 x10^3/uL (0.0-0.7) Basophils # (Auto) 0.0 x10^3/uL (0.0-0.2) 0.0 x10^3/uL (0.0-0.2) Sodium Level 144 mmol/L (136-145) 145 mmol/L (136-145) Potassium Level 3.8 mmol/L (3.5-5.1) 3.3 mmol/L (3.5-5.1) Chloride Level 106 mmol/L (98-107) 108 mmol/L (98-107) Carbon Dioxide Level 28 mmol/L (21-32) 29 mmol/L (21-32) Anion Gap 10 (6-14) 8 (6-14) Blood Urea Nitrogen 12 mg/dL (8-26) 8 mg/dL (8-26) Creatinine 0.8 mg/dL (0.7-1.3) 0.9 mg/dL (0.7-1.3) Estimated GFR (Cockcroft-Gault) 116.3 101.5 Glucose Level 131 mg/dL (70-99) 114 mg/dL (70-99) Calcium Level 8.1 mg/dL (8.5-10.1) 8.7 mg/dL (8.5-10.1) Creatine Kinase 125 U/L (39-308) Vitamin B12 Level 491 pg/mL (247-911) Thyroid Stimulating Hormone (TSH) 0.199 uIU/mL (0.358-3.74) Urine Opiates Screen Neg (NEG) Urine Methadone Screen Neg (NEG) Urine Barbiturates Neg (NEG) Urine Phencyclidine Screen Neg (NEG) Urine Amphetamine/Methamphetamine Neg (NEG) Urine Benzodiazepines Screen Neg (NEG) Urine Cocaine Screen Neg (NEG) Urine Cannabinoids Screen Neg (NEG) Urine Ethyl Alcohol Neg (NEG) Magnesium Level 1.9 mg/dL (1.8-2.4) PZ-Xam-A-Type Natriuretic Peptide 6606 pg/mL (0-124) Laboratory Tests Test 05/15/17 23:50 05/16/17 04:50 Urine Opiates Screen Neg (NEG) Urine Methadone Screen Neg (NEG) Urine Barbiturates Neg (NEG) Urine Phencyclidine Screen Neg (NEG) Urine Amphetamine/Methamphetamine Neg (NEG) Urine Benzodiazepines Screen Neg (NEG) Urine Cocaine Screen Neg (NEG) Urine Cannabinoids Screen Neg (NEG) Urine Ethyl Alcohol Neg (NEG) White Blood Count 5.0 x10^3/uL (4.0-11.0) Red Blood Count 4.18 x10^6/uL (4.30-5.70) Hemoglobin 11.3 g/dL (13.0-17.5) Hematocrit 34.0 % (39.0-53.0) Mean Corpuscular Volume 81 fL (79-100) Mean Corpuscular Hemoglobin 27 pg (25-35) Mean Corpuscular Hemoglobin Concent 33 g/dL (31-37) Red Cell Distribution Width 15.2 % (11.5-14.5) Platelet Count 185 x10^3/uL (140-400) Neutrophils (%) (Auto) 57 % (31-73) Lymphocytes (%) (Auto) 31 % (24-48) Monocytes (%) (Auto) 10 % (0-9) Eosinophils (%) (Auto) 2 % (0-3) Basophils (%) (Auto) 0 % (0-3) Neutrophils # (Auto) 2.8 x10^3uL (1.8-7.7) Lymphocytes # (Auto) 1.6 x10^3/uL (1.0-4.8) Monocytes # (Auto) 0.5 x10^3/uL (0.0-1.1) Eosinophils # (Auto) 0.1 x10^3/uL (0.0-0.7) Basophils # (Auto) 0.0 x10^3/uL (0.0-0.2) Sodium Level 145 mmol/L (136-145) Potassium Level 3.3 mmol/L (3.5-5.1) Chloride Level 108 mmol/L (98-107) Carbon Dioxide Level 29 mmol/L (21-32) Anion Gap 8 (6-14) Blood Urea Nitrogen 8 mg/dL (8-26) Creatinine 0.9 mg/dL (0.7-1.3) Estimated GFR (Cockcroft-Gault) 101.5 Glucose Level 114 mg/dL (70-99) Calcium Level 8.7 mg/dL (8.5-10.1) Magnesium Level 1.9 mg/dL (1.8-2.4) BE-Eej-I-Type Natriuretic Peptide 6606 pg/mL (0-124) Microbiology 05/14/17 Blood Culture - Preliminary, Resulted NO GROWTH AFTER 2 DAYS 05/14/17 Urine Culture - Final, Complete 05/14/17 Urine Culture Result 1 (KATHY) - Final, Complete 05/14/17 Antimicrobic Susceptibility - Final, Complete Medications Current Medications Nitroglycerin (Nitrostat) 0.4 mg PRN Q5MIN PRN SL CHEST PAIN; Start 05/14/17 at 14:30 Sodium Chloride 1,000 ml @ 2,520 mls/hr Q24M IV Last administered on 18:02; Start 05/14/17 at 16:13; Stop 05/14/17 at 17:12; Status DC Vancomycin HCl (Vanco Per Pharmacy) 1 each PRN DAILY PRN MC SEE COMMENTS Last administered on 05/15/17 13:26; Start 05/14/17 at 16:15; Stop 05/16/17 at 14:23 ; Status DC Piperacillin Sod/ Tazobactam Sod (Zosyn Per Pharmacy) 1 each PRN DAILY PRN MC SEE COMMENTS; Start 05/14/17 at 16:15 Vancomycin HCl 2 gm/Sodium Chloride 500 ml @ 250 mls/hr 1X ONCE IV Last administered on 05/14/17 17:28; Start 05/14/17 at 16:30; Stop 05/14/17 at 18:29 ; Status DC Piperacillin Sod/ Tazobactam Sod 4.5 gm/Sodium Chloride 100 ml @ 200 mls/hr 1X ONCE IV Last administered on 05/14/17 16:45; Start 05/14/17 at 16:30; Stop 05/14/17 at 16:59; Status DC Vancomycin HCl 1.25 gm/Sodium Chloride 250 ml @ 167 mls/hr Q12H IV Last administered on 05/16/17 04:55; Start 05/15/17 at 05:00; Stop 05/16/17 at 14:21 ; Status DC Ondansetron HCl (Zofran) 4 mg 1X ONCE IV Last administered on 05/14/17 18:15 ; Start 05/14/17 at 18:15; Stop 05/14/17 at 18:18; Status DC Ondansetron HCl (Zofran) 4 mg STK-MED ONCE .ROUTE ; Start 05/14/17 at 18:11; Stop 05/14/17 at 18:12; Status DC Ondansetron HCl (Zofran) 4 mg PRN Q8HRS PRN IV NAUSEA/VOMITING; Start 05/14/17 at 18:15; Stop 05/15/17 at 18:14; Status DC Morphine Sulfate 2 mg PRN Q2HR PRN IV PAIN; Start 05/14/17 at 18:15; Stop 05/15 at 18:14; Status DC Vancomycin HCl 1 each 1X ONCE MC ; Start 05/16/17 at 16:30; Stop 05/16/17 at 16 :31; Status Cancel Piperacillin Sod/ Tazobactam Sod 4.5 gm/Sodium Chloride 100 ml @ 200 mls/hr Q6HRS IV Last administered on 05/16/17 17:50; Start 05/14/17 at 23:00 Albuterol Sulfate (Ventolin Neb Soln) 2.5 mg PRN QID PRN NEB ASTHMA; Start at 19:30 Atorvastatin Calcium (Lipitor) 40 mg QHS PO Last administered on 05/15/17 21: 20; Start 05/14/17 at 21:00 Clopidogrel Bisulfate (Plavix) 75 mg DAILYWBKFT PO Last administered on 08:20; Start 05/15/17 at 08:00; Stop 05/16/17 at 11:44; Status DC Furosemide (Lasix) 40 mg DAILY PO Last administered on 05/16/17 08:20; Start 05/15/17 at 09:00 Lisinopril (Prinivil) 2.5 mg DAILY PO Last administered on 05/15/17 09:46; Start 05/15/17 at 09:00 Metoprolol Succinate (Toprol Xl) 25 mg DAILY PO Last administered on 05/16/17 10:08; Start 05/15/17 at 09:00 Potassium Chloride (Klor-Con) 10 meq DAILYWBKFT PO Last administered on 08:19; Start 05/15/17 at 08:00; Stop 05/16/17 at 09:53; Status DC Tamsulosin HCl (Flomax) 0.8 mg QHS PO Last administered on 05/15/17 21:20; Start 05/14/17 at 21:00 Acetaminophen (Tylenol) 650 mg PRN Q6HRS PRN PO Headache Last administered on 14:19; Start 05/15/17 at 10:45 Meclizine HCl (Antivert) 12.5 mg TID PO Last administered on 05/16/17 14:45; Start 05/15/17 at 14:00 Gadobutrol (Gadavist) 7.5 mmol 1X ONCE IV Last administered on 05/15/17 18:21 ; Start 05/15/17 at 18:00; Stop 05/15/17 at 18:01; Status DC Potassium Chloride (Klor-Con) 40 meq 1X ONCE PO Last administered on 10:07; Start 05/16/17 at 09:00; Stop 05/16/17 at 09:04; Status DC Magnesium Sulfate/ Dextrose 50 ml @ 25 mls/hr 1X ONCE IV Last administered on 05/16/17 10:06; Start 05/16/17 at 09:00; Stop 05/16/17 at 10:59; Status DC Aspirin (Ecotrin) 81 mg DAILYWBKFT PO Last administered on 05/16/17 10:07; Start 05/16/17 at 09:30 Potassium Chloride (Klor-Con) 20 meq DAILYWBKFT PO ; Start 05/17/17 at 08:00 Potassium Chloride (Klor-Con) 40 meq 1X ONCE PO Last administered on 14:45; Start 05/16/17 at 15:00; Stop 05/16/17 at 15:01; Status DC Magnesium Sulfate/ Dextrose 50 ml @ 25 mls/hr 1X ONCE IV Last administered on 05/16/17 12:23; Start 05/16/17 at 10:30; Stop 05/16/17 at 12:29; Status DC Active Scripts Active Klor-Con M10 (Potassium Chloride) 10 Meq Tab.er.prt 10 Meq PO DAILYWBKFT Metoprolol Succinate ( Xl ) (Metoprolol Succinate) 25 Mg Tab.er.24h 25 Mg PO DAILY Lisinopril 2.5 Mg Tablet 2.5 Mg PO DAILY Furosemide 40 Mg Tablet 40 Mg PO DAILY Clopidogrel (Clopidogrel Bisulfate) 75 Mg Tablet 75 Mg PO DAILYWBKFT Reported Albuterol Sulfate Neb Soln (Albuterol Sulfate) 2.5 Mg/3 Ml Vial.neb 2.5 Mg NEB QID PRN Flomax (Tamsulosin Hcl) 0.4 Mg Cap.er.24h 2 Cap PO DAILY Lipitor (Atorvastatin Calcium) 40 Mg Tablet 1 Tab PO QHS Tylenol (Acetaminophen) 325 Mg Tablet 1-2 Tab PO Q6HRS PRN Vitals/I & O Vital Sign - Last 24 Hours 05/15/17 05/15/17 05/16/17 05/16/17 20:40 23:09 03:16 07:00 Temp 98.1 98.1 97.9 98.1 98.1 97.9 Pulse 91 98 99 Resp 18 18 20 B/P (MAP) 96/69 (78) 99/69 (79) 97/72 (80) Pulse Ox 95 93 96 O2 Delivery Room Air Room Air Room Air Room Air 05/16/17 05/16/17 05/16/17 05/16/17 08:00 08:18 10:08 11:00 Temp 97.7 97.7 Pulse 99 99 92 Resp 20 B/P (MAP) 97/72 97/92 102/67 (79) Pulse Ox 94 O2 Delivery Room Air Room Air 05/16/17 15:00 Temp 98.3 98.3 Pulse 94 Resp 20 B/P (MAP) 110/76 (87) Pulse Ox 96 O2 Delivery Room Air Intake and Output 05/15/17 05/15/17 05/16/17 15:00 23:00 07:00 Intake Total 2040 ml Output Total 2240 ml 1250 ml Balance -200 ml -1250 ml NICO ALVAREZ III DO May 16, 2017 19:25
[2017-05-16] MEDS: ATORVASTATIN CALCIUM 40 MG TABLET. PO SCH (21:07)
[2017-05-16] MEDS: TAMSULOSIN 0.4 MG CAP.ER.24H. PO SCH (21:07)
[2017-05-16 22:55] VITALS: BP 114/85
[2017-05-17] VITALS (9 sets, daily range): BP systolic 118–144; BP diastolic 86–105
[2017-05-17] MEDS: PIPERACILLIN/TAZOBACTAM 4.5 GM in IV NORMAL SALINE 100ML 100 ML IV SCH ×4 (00:30→06:17)
[2017-05-17 06:25] LABS: BASO % 0 % (0-3); EOS % 0 % (0-3); HEMATOCRIT 37.8 % (39.0-53.0); HEMOGLOBIN 11.8 g/dL (13.0-17.5); LYMPH % 17 % (24-48); MEAN CORPUSCULAR HEMOGLOBIN 26 pg (25-35); MEAN CORPUSCULAR HGB CONC 31 g/dL (31-37); MEAN CORPUSCULAR VOLUME 83 fL (79-100); MONO % 8 % (0-9); NEUT % 75 % (31-73); PLATELET COUNT 209 x10^3/uL (140-400); RED BLOOD COUNT 4.53 x10^6/uL (4.30-5.70); RED CELL DISTRIBUTION WIDTH 15.6 % (11.5-14.5); WHITE BLOOD COUNT 6.2 x10^3/uL (4.0-11.0)
[2017-05-17 06:43] LABS: CALCIUM 8.8 mg/dL (8.5-10.1); GFR 89.9; POTASSIUM 3.7 mmol/L (3.5-5.1)
[2017-05-17 06:54] LABS: CHOLESTEROL/HDL RATIO 4.3
[2017-05-17] MEDS: LISINOPRIL 2.5 MG TABLET PO SCH (08:15)
[2017-05-17] MEDS: METOPROLOL SUCC 24HR ER 25 MG TAB.ER.24H. PO SCH (08:15)
[2017-05-17] MEDS: MECLIZINE HCL 12.5 MG TABLET. PO SCH ×3 (08:16→21:48)
[2017-05-17] MEDS: FUROSEMIDE 40 MG TABLET. PO SCH (08:16)
[2017-05-17] MEDS: POTASSIUM CHLORIDE 20 MEQ TABLET.ER. PO SCH (08:16)
[2017-05-17] MEDS: ASPIRIN ENTERIC COATED 81 MG TABLET.DR. PO SCH (08:16)
[2017-05-17] MEDS ORDERED: ONDANSETRON PF 4 MG/2 ML VIAL. IV PRN (08:30)
--- NOTE | 2017-05-17 09:01 | PDOC ---
PROGRESS NOTES Chief Complaint Chief Complaint 1. Sepsis from UTI 2. ENCISO, nausea, Right eye vision disturbance 3. Acute/subacute hemorrhage in midline of cerebellums with cerebral edema. 2. Chest pain 3. COPD 4. HLP 5. Fibromyalgia 6. BPH 7. Diverticulosis History of Present Illness History of Present Illness doing OK, vomited today. cannot walk well, complains of weakness denies fever and chills, no abnormal urinary issues Vitals Vitals Vital Signs Date Time Temp Pulse Resp B/P (MAP) Pulse Ox O2 Delivery O2 Flow Rate FiO2 05/17/17 08:15 93 144/96 05/17/17 07:00 97.5 20 98 Room Air 97.5 Physical Exam General: Alert, Oriented X3, Cooperative, No acute distress Heart: Regular rate (SR), Normal S1, Normal S2, Other (3/6 systolic murmur to LLS border) Lungs: Clear Abdomen: Soft, No tenderness Extremities: No cyanosis, No edema Skin: No breakdown, No significant lesion Labs LABS Laboratory Tests Test 05/17/17 05:10 White Blood Count 6.2 x10^3/uL (4.0-11.0) Red Blood Count 4.53 x10^6/uL (4.30-5.70) Hemoglobin 11.8 g/dL (13.0-17.5) Hematocrit 37.8 % (39.0-53.0) Mean Corpuscular Volume 83 fL (79-100) Mean Corpuscular Hemoglobin 26 pg (25-35) Mean Corpuscular Hemoglobin Concent 31 g/dL (31-37) Red Cell Distribution Width 15.6 % (11.5-14.5) Platelet Count 209 x10^3/uL (140-400) Neutrophils (%) (Auto) 75 % (31-73) Lymphocytes (%) (Auto) 17 % (24-48) Monocytes (%) (Auto) 8 % (0-9) Eosinophils (%) (Auto) 0 % (0-3) Basophils (%) (Auto) 0 % (0-3) Neutrophils # (Auto) 4.7 x10^3uL (1.8-7.7) Lymphocytes # (Auto) 1.0 x10^3/uL (1.0-4.8) Monocytes # (Auto) 0.5 x10^3/uL (0.0-1.1) Eosinophils # (Auto) 0.0 x10^3/uL (0.0-0.7) Basophils # (Auto) 0.0 x10^3/uL (0.0-0.2) Sodium Level 145 mmol/L (136-145) Potassium Level 3.7 mmol/L (3.5-5.1) Chloride Level 107 mmol/L (98-107) Carbon Dioxide Level 27 mmol/L (21-32) Anion Gap 11 (6-14) Blood Urea Nitrogen 8 mg/dL (8-26) Creatinine 1.0 mg/dL (0.7-1.3) Estimated GFR (Cockcroft-Gault) 89.9 Glucose Level 146 mg/dL (70-99) Calcium Level 8.8 mg/dL (8.5-10.1) Magnesium Level 2.5 mg/dL (1.8-2.4) Triglycerides Level 103 mg/dL (0-150) Cholesterol Level 184 mg/dL (0-200) LDL Cholesterol, Calculated 120 mg/dL (0-100) VLDL Cholesterol, Calculated 21 mg/dL (0-40) Non-HDL Cholesterol Calculated 141 mg/dL (0-129) HDL Cholesterol 43 mg/dL (40-60) Cholesterol/HDL Ratio 4.3 Review of Systems Review of Systems nausea this AM with vomiting, complains of weakness, cannot walk well Assessment and Plan Assessmemt and Plan Problems Medical Problems: (1) Urinary tract infection Status: Acute Problems: Comment Review of Relevant I have reviewed the following items raul (where applicable) has been applied. Labs Laboratory Tests Test 05/15/17 23:50 05/16/17 04:50 05/17/17 05:10 Urine Opiates Screen Neg (NEG) Urine Methadone Screen Neg (NEG) Urine Barbiturates Neg (NEG) Urine Phencyclidine Screen Neg (NEG) Urine Amphetamine/Methamphetamine Neg (NEG) Urine Benzodiazepines Screen Neg (NEG) Urine Cocaine Screen Neg (NEG) Urine Cannabinoids Screen Neg (NEG) Urine Ethyl Alcohol Neg (NEG) White Blood Count 5.0 x10^3/uL (4.0-11.0) 6.2 x10^3/uL (4.0-11.0) Red Blood Count 4.18 x10^6/uL (4.30-5.70) 4.53 x10^6/uL (4.30-5.70) Hemoglobin 11.3 g/dL (13.0-17.5) 11.8 g/dL (13.0-17.5) Hematocrit 34.0 % (39.0-53.0) 37.8 % (39.0-53.0) Mean Corpuscular Volume 81 fL (79-100) 83 fL (79-100) Mean Corpuscular Hemoglobin 27 pg (25-35) 26 pg (25-35) Mean Corpuscular Hemoglobin Concent 33 g/dL (31-37) 31 g/dL (31-37) Red Cell Distribution Width 15.2 % (11.5-14.5) 15.6 % (11.5-14.5) Platelet Count 185 x10^3/uL (140-400) 209 x10^3/uL (140-400) Neutrophils (%) (Auto) 57 % (31-73) 75 % (31-73) Lymphocytes (%) (Auto) 31 % (24-48) 17 % (24-48) Monocytes (%) (Auto) 10 % (0-9) 8 % (0-9) Eosinophils (%) (Auto) 2 % (0-3) 0 % (0-3) Basophils (%) (Auto) 0 % (0-3) 0 % (0-3) Neutrophils # (Auto) 2.8 x10^3uL (1.8-7.7) 4.7 x10^3uL (1.8-7.7) Lymphocytes # (Auto) 1.6 x10^3/uL (1.0-4.8) 1.0 x10^3/uL (1.0-4.8) Monocytes # (Auto) 0.5 x10^3/uL (0.0-1.1) 0.5 x10^3/uL (0.0-1.1) Eosinophils # (Auto) 0.1 x10^3/uL (0.0-0.7) 0.0 x10^3/uL (0.0-0.7) Basophils # (Auto) 0.0 x10^3/uL (0.0-0.2) 0.0 x10^3/uL (0.0-0.2) Sodium Level 145 mmol/L (136-145) 145 mmol/L (136-145) Potassium Level 3.3 mmol/L (3.5-5.1) 3.7 mmol/L (3.5-5.1) Chloride Level 108 mmol/L (98-107) 107 mmol/L (98-107) Carbon Dioxide Level 29 mmol/L (21-32) 27 mmol/L (21-32) Anion Gap 8 (6-14) 11 (6-14) Blood Urea Nitrogen 8 mg/dL (8-26) 8 mg/dL (8-26) Creatinine 0.9 mg/dL (0.7-1.3) 1.0 mg/dL (0.7-1.3) Estimated GFR (Cockcroft-Gault) 101.5 89.9 Glucose Level 114 mg/dL (70-99) 146 mg/dL (70-99) Calcium Level 8.7 mg/dL (8.5-10.1) 8.8 mg/dL (8.5-10.1) Magnesium Level 1.9 mg/dL (1.8-2.4) 2.5 mg/dL (1.8-2.4) ZK-Fhw-T-Type Natriuretic Peptide 6606 pg/mL (0-124) Triglycerides Level 103 mg/dL (0-150) Cholesterol Level 184 mg/dL (0-200) LDL Cholesterol, Calculated 120 mg/dL (0-100) VLDL Cholesterol, Calculated 21 mg/dL (0-40) Non-HDL Cholesterol Calculated 141 mg/dL (0-129) HDL Cholesterol 43 mg/dL (40-60) Cholesterol/HDL Ratio 4.3 Laboratory Tests Test 05/17/17 05:10 White Blood Count 6.2 x10^3/uL (4.0-11.0) Red Blood Count 4.53 x10^6/uL (4.30-5.70) Hemoglobin 11.8 g/dL (13.0-17.5) Hematocrit 37.8 % (39.0-53.0) Mean Corpuscular Volume 83 fL (79-100) Mean Corpuscular Hemoglobin 26 pg (25-35) Mean Corpuscular Hemoglobin Concent 31 g/dL (31-37) Red Cell Distribution Width 15.6 % (11.5-14.5) Platelet Count 209 x10^3/uL (140-400) Neutrophils (%) (Auto) 75 % (31-73) Lymphocytes (%) (Auto) 17 % (24-48) Monocytes (%) (Auto) 8 % (0-9) Eosinophils (%) (Auto) 0 % (0-3) Basophils (%) (Auto) 0 % (0-3) Neutrophils # (Auto) 4.7 x10^3uL (1.8-7.7) Lymphocytes # (Auto) 1.0 x10^3/uL (1.0-4.8) Monocytes # (Auto) 0.5 x10^3/uL (0.0-1.1) Eosinophils # (Auto) 0.0 x10^3/uL (0.0-0.7) Basophils # (Auto) 0.0 x10^3/uL (0.0-0.2) Sodium Level 145 mmol/L (136-145) Potassium Level 3.7 mmol/L (3.5-5.1) Chloride Level 107 mmol/L (98-107) Carbon Dioxide Level 27 mmol/L (21-32) Anion Gap 11 (6-14) Blood Urea Nitrogen 8 mg/dL (8-26) Creatinine 1.0 mg/dL (0.7-1.3) Estimated GFR (Cockcroft-Gault) 89.9 Glucose Level 146 mg/dL (70-99) Calcium Level 8.8 mg/dL (8.5-10.1) Magnesium Level 2.5 mg/dL (1.8-2.4) Triglycerides Level 103 mg/dL (0-150) Cholesterol Level 184 mg/dL (0-200) LDL Cholesterol, Calculated 120 mg/dL (0-100) VLDL Cholesterol, Calculated 21 mg/dL (0-40) Non-HDL Cholesterol Calculated 141 mg/dL (0-129) HDL Cholesterol 43 mg/dL (40-60) Cholesterol/HDL Ratio 4.3 Microbiology 05/14/17 Blood Culture - Preliminary, Resulted NO GROWTH AFTER 2 DAYS 05/14/17 Urine Culture - Final, Complete 05/14/17 Urine Culture Result 1 (KATHY) - Final, Complete 05/14/17 Antimicrobic Susceptibility - Final, Complete Medications Current Medications Nitroglycerin (Nitrostat) 0.4 mg PRN Q5MIN PRN SL CHEST PAIN; Start 05/14/17 at 14:30 Sodium Chloride 1,000 ml @ 2,520 mls/hr Q24M IV Last administered on 18:02; Start 05/14/17 at 16:13; Stop 05/14/17 at 17:12; Status DC Vancomycin HCl (Vanco Per Pharmacy) 1 each PRN DAILY PRN MC SEE COMMENTS Last administered on 05/15/17 13:26; Start 05/14/17 at 16:15; Stop 05/16/17 at 14:23 ; Status DC Piperacillin Sod/ Tazobactam Sod (Zosyn Per Pharmacy) 1 each PRN DAILY PRN MC SEE COMMENTS; Start 05/14/17 at 16:15 Vancomycin HCl 2 gm/Sodium Chloride 500 ml @ 250 mls/hr 1X ONCE IV Last administered on 05/14/17 17:28; Start 05/14/17 at 16:30; Stop 05/14/17 at 18:29 ; Status DC Piperacillin Sod/ Tazobactam Sod 4.5 gm/Sodium Chloride 100 ml @ 200 mls/hr 1X ONCE IV Last administered on 05/14/17 16:45; Start 05/14/17 at 16:30; Stop 05/14/17 at 16:59; Status DC Vancomycin HCl 1.25 gm/Sodium Chloride 250 ml @ 167 mls/hr Q12H IV Last administered on 05/16/17 04:55; Start 05/15/17 at 05:00; Stop 05/16/17 at 14:21 ; Status DC Ondansetron HCl (Zofran) 4 mg 1X ONCE IV Last administered on 05/14/17 18:15 ; Start 05/14/17 at 18:15; Stop 05/14/17 at 18:18; Status DC Ondansetron HCl (Zofran) 4 mg STK-MED ONCE .ROUTE ; Start 05/14/17 at 18:11; Stop 05/14/17 at 18:12; Status DC Ondansetron HCl (Zofran) 4 mg PRN Q8HRS PRN IV NAUSEA/VOMITING; Start 05/14/17 at 18:15; Stop 05/15/17 at 18:14; Status DC Morphine Sulfate 2 mg PRN Q2HR PRN IV PAIN; Start 05/14/17 at 18:15; Stop 05/15 at 18:14; Status DC Vancomycin HCl 1 each 1X ONCE MC ; Start 05/16/17 at 16:30; Stop 05/16/17 at 16 :31; Status Cancel Piperacillin Sod/ Tazobactam Sod 4.5 gm/Sodium Chloride 100 ml @ 200 mls/hr Q6HRS IV Last administered on 05/17/17 06:00; Start 05/14/17 at 23:00 Albuterol Sulfate (Ventolin Neb Soln) 2.5 mg PRN QID PRN NEB ASTHMA; Start at 19:30 Atorvastatin Calcium (Lipitor) 40 mg QHS PO Last administered on 05/16/17 21: 07; Start 05/14/17 at 21:00 Clopidogrel Bisulfate (Plavix) 75 mg DAILYWBKFT PO Last administered on 08:20; Start 05/15/17 at 08:00; Stop 05/16/17 at 11:44; Status DC Furosemide (Lasix) 40 mg DAILY PO Last administered on 05/17/17 08:16; Start 05/15/17 at 09:00 Lisinopril (Prinivil) 2.5 mg DAILY PO Last administered on 05/17/17 08:15; Start 05/15/17 at 09:00 Metoprolol Succinate (Toprol Xl) 25 mg DAILY PO Last administered on 05/17/17 08:15; Start 05/15/17 at 09:00 Potassium Chloride (Klor-Con) 10 meq DAILYWBKFT PO Last administered on 08:19; Start 05/15/17 at 08:00; Stop 05/16/17 at 09:53; Status DC Tamsulosin HCl (Flomax) 0.8 mg QHS PO Last administered on 05/16/17 21:07; Start 05/14/17 at 21:00 Acetaminophen (Tylenol) 650 mg PRN Q6HRS PRN PO Headache Last administered on 14:19; Start 05/15/17 at 10:45 Meclizine HCl (Antivert) 12.5 mg TID PO Last administered on 05/17/17 08:16; Start 05/15/17 at 14:00 Gadobutrol (Gadavist) 7.5 mmol 1X ONCE IV Last administered on 05/15/17 18:21 ; Start 05/15/17 at 18:00; Stop 05/15/17 at 18:01; Status DC Potassium Chloride (Klor-Con) 40 meq 1X ONCE PO Last administered on 10:07; Start 05/16/17 at 09:00; Stop 05/16/17 at 09:04; Status DC Magnesium Sulfate/ Dextrose 50 ml @ 25 mls/hr 1X ONCE IV Last administered on 05/16/17 10:06; Start 05/16/17 at 09:00; Stop 05/16/17 at 10:59; Status DC Aspirin (Ecotrin) 81 mg DAILYWBKFT PO Last administered on 05/17/17 08:16; Start 05/16/17 at 09:30 Potassium Chloride (Klor-Con) 20 meq DAILYWBKFT PO Last administered on 08:16; Start 05/17/17 at 08:00 Potassium Chloride (Klor-Con) 40 meq 1X ONCE PO Last administered on 14:45; Start 05/16/17 at 15:00; Stop 05/16/17 at 15:01; Status DC Magnesium Sulfate/ Dextrose 50 ml @ 25 mls/hr 1X ONCE IV Last administered on 05/16/17 12:23; Start 05/16/17 at 10:30; Stop 05/16/17 at 12:29; Status DC Ondansetron HCl (Zofran) 4 mg PRN Q8HRS PRN IV NAUSEA/VOMITING; Start 05/17/17 at 08:30 Active Scripts Active Klor-Con M10 (Potassium Chloride) 10 Meq Tab.er.prt 10 Meq PO DAILYWBKFT Metoprolol Succinate ( Xl ) (Metoprolol Succinate) 25 Mg Tab.er.24h 25 Mg PO DAILY Lisinopril 2.5 Mg Tablet 2.5 Mg PO DAILY Furosemide 40 Mg Tablet 40 Mg PO DAILY Clopidogrel (Clopidogrel Bisulfate) 75 Mg Tablet 75 Mg PO DAILYWBKFT Reported Albuterol Sulfate Neb Soln (Albuterol Sulfate) 2.5 Mg/3 Ml Vial.neb 2.5 Mg NEB QID PRN Flomax (Tamsulosin Hcl) 0.4 Mg Cap.er.24h 2 Cap PO DAILY Lipitor (Atorvastatin Calcium) 40 Mg Tablet 1 Tab PO QHS Tylenol (Acetaminophen) 325 Mg Tablet 1-2 Tab PO Q6HRS PRN Vitals/I & O Vital Sign - Last 24 Hours 05/16/17 05/16/17 05/16/17 05/16/17 10:08 11:00 15:00 19:25 Temp 97.7 98.3 98.1 97.7 98.3 98.1 Pulse 99 92 94 93 Resp 20 20 16 B/P (MAP) 97/92 102/67 (79) 110/76 (87) 120/88 (99) Pulse Ox 94 96 99 O2 Delivery Room Air Room Air Room Air 05/16/17 05/17/17 05/17/17 05/17/17 22:55 02:50 07:00 08:15 Temp 98.1 98.1 97.5 98.1 98.1 97.5 Pulse 89 92 93 93 Resp 16 16 20 B/P (MAP) 114/85 (95) 129/98 (108) 144/96 (112) 144/96 Pulse Ox 97 97 98 O2 Delivery Room Air Room Air Room Air 05/17/17 08:15 Pulse 93 B/P (MAP) 144/96 Intake and Output 05/16/17 05/16/17 05/17/17 15:00 23:00 07:00 Intake Total 1300 ml 590 ml Output Total 2400 ml 1600 ml Balance -1100 ml -1010 ml BHAVANI BLAS MD May 17, 2017 09:01
--- NOTE | 2017-05-17 12:42 | PDOC ---
TREMAINE WALTON POLICE PILOT 05/17/17 1242: CARDIO Progress Notes Date and Time Date of Service 05/17/2017 Time of Evaluation 1220 Subjective Subjective: No Chest Pain, No shortness of breath, No Palpitations, Other ( complains of nausea today and some dizziness when up. ) Vitals Vitals Vital Signs Date Time Temp Pulse Resp B/P (MAP) Pulse Ox O2 Delivery O2 Flow Rate FiO2 05/17/17 11:00 97.5 91 20 130/99 (109) 94 Room Air 97.5 Weight Weight [ ] Input and Output Intake and Output Intake and Output 05/17/17 07:00 Intake Total 1890 ml Output Total 4000 ml Balance -2110 ml Intake Oral 1890 ml Output Urine Total 4000 ml Laboratory Labs Laboratory Tests Test 05/17/17 05:10 White Blood Count 6.2 x10^3/uL (4.0-11.0) Red Blood Count 4.53 x10^6/uL (4.30-5.70) Hemoglobin 11.8 g/dL (13.0-17.5) Hematocrit 37.8 % (39.0-53.0) Mean Corpuscular Volume 83 fL (79-100) Mean Corpuscular Hemoglobin 26 pg (25-35) Mean Corpuscular Hemoglobin Concent 31 g/dL (31-37) Red Cell Distribution Width 15.6 % (11.5-14.5) Platelet Count 209 x10^3/uL (140-400) Neutrophils (%) (Auto) 75 % (31-73) Lymphocytes (%) (Auto) 17 % (24-48) Monocytes (%) (Auto) 8 % (0-9) Eosinophils (%) (Auto) 0 % (0-3) Basophils (%) (Auto) 0 % (0-3) Neutrophils # (Auto) 4.7 x10^3uL (1.8-7.7) Lymphocytes # (Auto) 1.0 x10^3/uL (1.0-4.8) Monocytes # (Auto) 0.5 x10^3/uL (0.0-1.1) Eosinophils # (Auto) 0.0 x10^3/uL (0.0-0.7) Basophils # (Auto) 0.0 x10^3/uL (0.0-0.2) Sodium Level 145 mmol/L (136-145) Potassium Level 3.7 mmol/L (3.5-5.1) Chloride Level 107 mmol/L (98-107) Carbon Dioxide Level 27 mmol/L (21-32) Anion Gap 11 (6-14) Blood Urea Nitrogen 8 mg/dL (8-26) Creatinine 1.0 mg/dL (0.7-1.3) Estimated GFR (Cockcroft-Gault) 89.9 Glucose Level 146 mg/dL (70-99) Calcium Level 8.8 mg/dL (8.5-10.1) Magnesium Level 2.5 mg/dL (1.8-2.4) Triglycerides Level 103 mg/dL (0-150) Cholesterol Level 184 mg/dL (0-200) LDL Cholesterol, Calculated 120 mg/dL (0-100) VLDL Cholesterol, Calculated 21 mg/dL (0-40) Non-HDL Cholesterol Calculated 141 mg/dL (0-129) HDL Cholesterol 43 mg/dL (40-60) Cholesterol/HDL Ratio 4.3 Microbiology Micro Microbiology 05/14/17 Blood Culture - Preliminary, Resulted NO GROWTH AFTER 2 DAYS 05/14/17 Urine Culture - Final, Complete 05/14/17 Urine Culture Result 1 (KATHY) - Final, Complete 05/14/17 Antimicrobic Susceptibility - Final, Complete Physical Exam HEENT: Neck Supple W Full Motion Chest: Symmetric LUNGS: Clear to Auscultation Heart: S1S2, RRR (SR o significant ectopies overnight) Abdomen: Soft N/T Extremities: No Edema, No Calf Tenderness Neurology: alert, oriented Assessment Assessment 1. Tachyarrhythmia: notable for SVT. No further arrhythmias overnight. 2. CAD: S/P PCI/MAHSA to LM/LAD. Stable 3. ICM: EF 15-20%.NYHA 2, remains compensated 4. HLP 5. UTI 6. GERD: nausea/vomiting(x1) 7. Dizziness: BP and renal function adequate. Volume loss contributing. Net loss 2L overnight Recommendations 1. Continue on metoprolol. IF HR remains in the 90s then will consider increasing toprol 2. Push po fluids. Check orthostatic readings. If vomiting does continue then may hold lasix. . 2. Continue with secondary prevention including ASA/plavix. 3. Fluid restrictions [id number] ml/24 hours. Daily weight. 4. Keep K and Mg close to 4.0 and 2.0 respectively. 5. Start on protonix MATHEW CHIU MD 05/17/172010: CARDIO Progress Notes Plan Plan Pt. seen and examined. Agree with above BROWNING PROCESSOR note. No acute issues overnight. REmains with dizziness likely due to cerebellar infarct. Supportive care. Restart plavix as soon as safe to do so. Will follow along. High risk for stent thrombosis so important to restart plavix sofi. Thanks. Will follow. TREMAINE WALTON APRN May 17, 2017 12:42 MATHEW CHIU MD May 17, 2017 20:11
--- NOTE | 2017-05-17 13:13 | PDOC ---
PROGRESS NOTES Assessment Assessment Acute/subacute hemorrhage in midline of cerebellums with cerebral edema. Right eye vision disturbance, dizziness x 1 day before admission. Intermittent headaches. Generalized weakness. UTI, acute DM HLD CAD COPD RECOMMENDATIONS/PLAN: Hold Plavix 75 mg daily for 7-10 day due to ICH. Continue Lipitor 40 mg HS. Treat UTI Treat medical diseases. OT/PT. Brain MRI w/wo contrast and MRA w/o contrast on 05/15/17: See above findings. HISTORY OF THE PRESENT ILLNESS: 66-y-old AA male patient with symptoms of prolonged generalized weakness and malaise to come to the ER of [facility]. He was hospitalized for further evaluation. He later complained right eye vision disturbance for 1 day described as twisted vision with imagine changes and abnormality when he steven down to his right side. He also has dizziness and intermitted headaches, so neurology was called for consultation. He stated he did not have symptoms like these before. He stated he is doing fine on 05/17 w/o recurrent vision disturbance in his right eye and no headache since here . PAST MEDICAL HISTORY: Please see above. PAST SURGERY HISTORY: No major surgery recently. ALLERGY: Reviewed. MEDICATIONS: Refer to [facility] FAMILY HISTORY: Non contributory. SOCIAL HISTORY: Lives at home. Denies current smoking, drinking, and illicit drug use. He smoked cigarettes in the past but quit many years ago. He drank alcohol in the past but quit about 20 years ago. REVIEW OF SYSTEMS: Constitutional: No malnutrition, weight loss, cachexia. Head: No traumatic brain or head injury. Skin: No edema, or rash. Ear: Chronic bilateral tinnitus. Eyes: No vision loss or color blindness. Nose: No bleeding or purulent discharges. Hearing: Hearing decrease. Neck: No injury. Cardiac: HLD. Pulmonary: No COPD. GI: No GI ulcer, GI bleeding. Urinary/genital: UTI. Endocrinologic: Diabetes Mellitus. Skeletomuscular: Generalized weakness. Neurological: see HP. Psychiatric: Denies drug use/abuse. Otherwise, not [id number] review of systems. PHYSICAL EXAMINATION: General appearance is in subacute distress. HEENT: Normocephalic and nontraumatic. Eyes, nose, ears, and throat are unremarkable. Neck is supple. No lymphadenopathy. No crepitus. Cardiovascular: S1, S2, regular rate and rhythm. Pulmonary: Clear to auscultation bilaterally. Abdomen: Bowel sounds are positive. Abdomen is soft, nontender, and nondistended. Extremities: No rash, lesions, or edema. No restriction of range of motion NEUROLOGICAL EXAMINATION: Alert Oriented to time, place and person. PERRL. EOMI. Mild bilateral horizontal nystagmus noted from time to time. CN: no focal findings. Muscle tone: within normal. Muscle strength: 5 DTR: 2 Plantar reflex: Flexor response bilaterally Gait: not examined in bed. Sensory exam: no abnormal findings. No cerebellar signs elicited. F-T-N test fine. Objective Objective Vital Signs Date Time Temp Pulse Resp B/P (MAP) Pulse Ox O2 Delivery O2 Flow Rate FiO2 05/17/17 12:57 127/98 (108) 05/17/17 11:00 97.5 91 20 94 Room Air 97.5 Intake and Output 05/17/17 07:00 Intake Total 1890 ml Output Total 4000 ml Balance -2110 ml Intake Oral 1890 ml Output Urine Total 4000 ml Vitals Signs Vitals VS - Last 72 Hours, by Label Date Time Temp Pulse Resp B/P (MAP) Pulse Ox O2 Delivery O2 Flow Rate FiO2 05/17/17 12:57 127/98 (108) 05/17/17 12:52 136/105 (115) 05/17/17 12:47 144/101 (115) 05/17/17 11:00 97.5 91 20 130/99 (109) 94 Room Air 97.5 05/17/17 08:15 93 144/96 05/17/17 08:15 93 144/96 05/17/17 08:00 Room Air 05/17/17 07:00 97.5 93 20 144/96 (112) 98 Room Air 97.5 05/17/17 02:50 98.1 92 16 129/98 (108) 97 Room Air 98.1 05/16/17 22:55 98.1 89 16 114/85 (95) 97 Room Air 98.1 05/16/17 19:25 98.1 93 16 120/88 (99) 99 Room Air 98.1 05/16/17 15:00 98.3 94 20 110/76 (87) 96 Room Air 98.3 05/16/17 11:00 97.7 92 20 102/67 (79) 94 Room Air 97.7 7/19/17 10:08 99 97/92 05/16/17 08:18 99 97/72 05/16/17 08:00 Room Air 05/16/17 07:00 97.9 99 20 97/72 (80) 96 Room Air 97.9 Laboratory Laboratory Laboratory Tests Test 05/17/17 05:10 White Blood Count 6.2 x10^3/uL (4.0-11.0) Red Blood Count 4.53 x10^6/uL (4.30-5.70) Hemoglobin 11.8 g/dL (13.0-17.5) Hematocrit 37.8 % (39.0-53.0) Mean Corpuscular Volume 83 fL (79-100) Mean Corpuscular Hemoglobin 26 pg (25-35) Mean Corpuscular Hemoglobin Concent 31 g/dL (31-37) Red Cell Distribution Width 15.6 % (11.5-14.5) Platelet Count 209 x10^3/uL (140-400) Neutrophils (%) (Auto) 75 % (31-73) Lymphocytes (%) (Auto) 17 % (24-48) Monocytes (%) (Auto) 8 % (0-9) Eosinophils (%) (Auto) 0 % (0-3) Basophils (%) (Auto) 0 % (0-3) Neutrophils # (Auto) 4.7 x10^3uL (1.8-7.7) Lymphocytes # (Auto) 1.0 x10^3/uL (1.0-4.8) Monocytes # (Auto) 0.5 x10^3/uL (0.0-1.1) Eosinophils # (Auto) 0.0 x10^3/uL (0.0-0.7) Basophils # (Auto) 0.0 x10^3/uL (0.0-0.2) Sodium Level 145 mmol/L (136-145) Potassium Level 3.7 mmol/L (3.5-5.1) Chloride Level 107 mmol/L (98-107) Carbon Dioxide Level 27 mmol/L (21-32) Anion Gap 11 (6-14) Blood Urea Nitrogen 8 mg/dL (8-26) Creatinine 1.0 mg/dL (0.7-1.3) Estimated GFR (Cockcroft-Gault) 89.9 Glucose Level 146 mg/dL (70-99) Calcium Level 8.8 mg/dL (8.5-10.1) Magnesium Level 2.5 mg/dL (1.8-2.4) Triglycerides Level 103 mg/dL (0-150) Cholesterol Level 184 mg/dL (0-200) LDL Cholesterol, Calculated 120 mg/dL (0-100) VLDL Cholesterol, Calculated 21 mg/dL (0-40) Non-HDL Cholesterol Calculated 141 mg/dL (0-129) HDL Cholesterol 43 mg/dL (40-60) Cholesterol/HDL Ratio 4.3 Microbiology 05/14/17 Blood Culture - Preliminary, Resulted NO GROWTH AFTER 2 DAYS 05/14/17 Urine Culture - Final, Complete 05/14/17 Urine Culture Result 1 (KATHY) - Final, Complete 05/14/17 Antimicrobic Susceptibility - Final, Complete Medication Medications Current Medications Atorvastatin Calcium (Lipitor) 80 mg QHS PO ; Start 05/17/17 at 21:00 Ceftriaxone Sodium 1 gm/ Sodium Chloride 50 ml @ 100 mls/hr Q24H IV Last administered on 05/17/17 09:52; Start 05/17/17 at 10:00 Ondansetron HCl (Zofran) 4 mg PRN Q8HRS PRN IV NAUSEA/VOMITING; Start 05/17/17 at 08:30 Potassium Chloride (Klor-Con) 20 meq DAILYWBKFT PO Last administered on 08:16; Start 05/17/17 at 08:00 Potassium Chloride (Klor-Con) 40 meq 1X ONCE PO Last administered on 14:45; Start 05/16/17 at 15:00; Stop 05/16/17 at 15:01; Status DC Vancomycin HCl 1 each 1X ONCE MC ; Start 05/16/17 at 16:30; Stop 05/16/17 at 16 :31; Status Cancel Comment Review of Relevant I have reviewed the following items raul (where applicable) has been applied. CHITO RIVERA MD May 17, 2017 13:13
[2017-05-17] MEDS: ACETAMINOPHEN 325 MG TABLET. PO PRN (20:13)
[2017-05-17] MEDS: TAMSULOSIN 0.4 MG CAP.ER.24H. PO SCH (21:47)
[2017-05-17] MEDS: ATORVASTATIN CALCIUM 40 MG TABLET. PO SCH (21:48)
[2017-05-18 03:00] VITALS: BP 117/86
[2017-05-18 04:25] LABS: BASO % 1 % (0-3); EOS % 2 % (0-3); HEMATOCRIT 36.1 % (39.0-53.0); HEMOGLOBIN 11.5 g/dL (13.0-17.5); LYMPH # 1.7 x10^3/uL (1.0-4.8); LYMPH % 27 % (24-48); MEAN CORPUSCULAR HEMOGLOBIN 26 pg (25-35); MEAN CORPUSCULAR HGB CONC 32 g/dL (31-37); MEAN CORPUSCULAR VOLUME 83 fL (79-100); MONO % 10 % (0-9); NEUT % 61 % (31-73); PLATELET COUNT 174 x10^3/uL (140-400); RED BLOOD COUNT 4.36 x10^6/uL (4.30-5.70); WHITE BLOOD COUNT 6.3 x10^3/uL (4.0-11.0)
[2017-05-18 04:41] LABS: CALCIUM 8.5 mg/dL (8.5-10.1); CREATININE 0.9 mg/dL (0.7-1.3); GFR 101.5; POTASSIUM 3.2 mmol/L (3.5-5.1)
[2017-05-18] MEDS: ACETAMINOPHEN 325 MG TABLET. PO PRN ×3 (06:39→20:37)
[2017-05-18 07:00] VITALS: BP 127/92
[2017-05-18] MEDS: LISINOPRIL 2.5 MG TABLET PO SCH (09:14)
[2017-05-18] MEDS: ASPIRIN ENTERIC COATED 81 MG TABLET.DR. PO SCH (09:14)
[2017-05-18] MEDS: FUROSEMIDE 40 MG TABLET. PO SCH (09:15)
[2017-05-18] MEDS: METOPROLOL SUCC 24HR ER 50 MG TAB.ER.24H. PO SCH (09:15)
[2017-05-18] MEDS: POTASSIUM CHLORIDE 20 MEQ TABLET.ER. PO SCH ×2 (09:15→17:54)
[2017-05-18] MEDS: MECLIZINE HCL 12.5 MG TABLET. PO SCH ×3 (09:15→20:37)
[2017-05-18 11:00] VITALS: BP 114/86
--- NOTE | 2017-05-18 12:01 | PDOC ---
PROGRESS NOTES Chief Complaint Chief Complaint Chief complaint headache Assessment and plan 1. UTI Klebsiella sensitive to ciprofloxacin and her Levaquin 2. Coronary artery disease with recent LAD stent placement in March 3. Acute/subacute hemorrhage in midline of cerebellums with cerebral edema. 2. Cardiomyopathy 3. COPD 4. HLP 5. Fibromyalgia 6. BPH 7. Diverticulosis Plan Replace potassium CT had ordered Discussed with neurology and the cardiology agreed to start him on Plavix after CT Risks benefits alternatives discussed with patient about resuming Plavix Continue current antibiotics Continue physical therapy occupational therapy patient need acute rehabilitation Labs reviewed Patient complains of mild headache not ready to be discharged today. History of Present Illness History of Present Illness Complains of headache frontal No fever no chills No nausea no vomiting No new weakness Vitals Vitals Vital Signs Date Time Temp Pulse Resp B/P (MAP) Pulse Ox O2 Delivery O2 Flow Rate FiO2 05/18/17 11:00 98.1 90 18 114/86 (95) 99 Room Air 98.1 Physical Exam General: Alert, Oriented X3, Cooperative, No acute distress Heart: Regular rate (SR), Normal S1, Normal S2, Other (3/6 systolic murmur to LLS border) Lungs: Clear Abdomen: Soft, No tenderness Extremities: No cyanosis, No edema Skin: No breakdown, No significant lesion Labs LABS Laboratory Tests Test 05/18/17 04:05 White Blood Count 6.3 x10^3/uL (4.0-11.0) Red Blood Count 4.36 x10^6/uL (4.30-5.70) Hemoglobin 11.5 g/dL (13.0-17.5) Hematocrit 36.1 % (39.0-53.0) Mean Corpuscular Volume 83 fL (79-100) Mean Corpuscular Hemoglobin 26 pg (25-35) Mean Corpuscular Hemoglobin Concent 32 g/dL (31-37) Red Cell Distribution Width 15.0 % (11.5-14.5) Platelet Count 174 x10^3/uL (140-400) Neutrophils (%) (Auto) 61 % (31-73) Lymphocytes (%) (Auto) 27 % (24-48) Monocytes (%) (Auto) 10 % (0-9) Eosinophils (%) (Auto) 2 % (0-3) Basophils (%) (Auto) 1 % (0-3) Neutrophils # (Auto) 3.8 x10^3uL (1.8-7.7) Lymphocytes # (Auto) 1.7 x10^3/uL (1.0-4.8) Monocytes # (Auto) 0.6 x10^3/uL (0.0-1.1) Eosinophils # (Auto) 0.1 x10^3/uL (0.0-0.7) Basophils # (Auto) 0.0 x10^3/uL (0.0-0.2) Sodium Level 144 mmol/L (136-145) Potassium Level 3.2 mmol/L (3.5-5.1) Chloride Level 106 mmol/L (98-107) Carbon Dioxide Level 29 mmol/L (21-32) Anion Gap 9 (6-14) Blood Urea Nitrogen 7 mg/dL (8-26) Creatinine 0.9 mg/dL (0.7-1.3) Estimated GFR (Cockcroft-Gault) 101.5 Glucose Level 126 mg/dL (70-99) Calcium Level 8.5 mg/dL (8.5-10.1) Assessment and Plan Assessmemt and Plan Problems Medical Problems: (1) Urinary tract infection Status: Acute Problems: Comment Review of Relevant I have reviewed the following items raul (where applicable) has been applied. Labs Laboratory Tests Test 05/17/17 05:10 05/18/17 04:05 White Blood Count 6.2 x10^3/uL (4.0-11.0) 6.3 x10^3/uL (4.0-11.0) Red Blood Count 4.53 x10^6/uL (4.30-5.70) 4.36 x10^6/uL (4.30-5.70) Hemoglobin 11.8 g/dL (13.0-17.5) 11.5 g/dL (13.0-17.5) Hematocrit 37.8 % (39.0-53.0) 36.1 % (39.0-53.0) Mean Corpuscular Volume 83 fL (79-100) 83 fL (79-100) Mean Corpuscular Hemoglobin 26 pg (25-35) 26 pg (25-35) Mean Corpuscular Hemoglobin Concent 31 g/dL (31-37) 32 g/dL (31-37) Red Cell Distribution Width 15.6 % (11.5-14.5) 15.0 % (11.5-14.5) Platelet Count 209 x10^3/uL (140-400) 174 x10^3/uL (140-400) Neutrophils (%) (Auto) 75 % (31-73) 61 % (31-73) Lymphocytes (%) (Auto) 17 % (24-48) 27 % (24-48) Monocytes (%) (Auto) 8 % (0-9) 10 % (0-9) Eosinophils (%) (Auto) 0 % (0-3) 2 % (0-3) Basophils (%) (Auto) 0 % (0-3) 1 % (0-3) Neutrophils # (Auto) 4.7 x10^3uL (1.8-7.7) 3.8 x10^3uL (1.8-7.7) Lymphocytes # (Auto) 1.0 x10^3/uL (1.0-4.8) 1.7 x10^3/uL (1.0-4.8) Monocytes # (Auto) 0.5 x10^3/uL (0.0-1.1) 0.6 x10^3/uL (0.0-1.1) Eosinophils # (Auto) 0.0 x10^3/uL (0.0-0.7) 0.1 x10^3/uL (0.0-0.7) Basophils # (Auto) 0.0 x10^3/uL (0.0-0.2) 0.0 x10^3/uL (0.0-0.2) Sodium Level 145 mmol/L (136-145) 144 mmol/L (136-145) Potassium Level 3.7 mmol/L (3.5-5.1) 3.2 mmol/L (3.5-5.1) Chloride Level 107 mmol/L (98-107) 106 mmol/L (98-107) Carbon Dioxide Level 27 mmol/L (21-32) 29 mmol/L (21-32) Anion Gap 11 (6-14) 9 (6-14) Blood Urea Nitrogen 8 mg/dL (8-26) 7 mg/dL (8-26) Creatinine 1.0 mg/dL (0.7-1.3) 0.9 mg/dL (0.7-1.3) Estimated GFR (Cockcroft-Gault) 89.9 101.5 Glucose Level 146 mg/dL (70-99) 126 mg/dL (70-99) Calcium Level 8.8 mg/dL (8.5-10.1) 8.5 mg/dL (8.5-10.1) Magnesium Level 2.5 mg/dL (1.8-2.4) Triglycerides Level 103 mg/dL (0-150) Cholesterol Level 184 mg/dL (0-200) LDL Cholesterol, Calculated 120 mg/dL (0-100) VLDL Cholesterol, Calculated 21 mg/dL (0-40) Non-HDL Cholesterol Calculated 141 mg/dL (0-129) HDL Cholesterol 43 mg/dL (40-60) Cholesterol/HDL Ratio 4.3 Laboratory Tests Test 05/18/17 04:05 White Blood Count 6.3 x10^3/uL (4.0-11.0) Red Blood Count 4.36 x10^6/uL (4.30-5.70) Hemoglobin 11.5 g/dL (13.0-17.5) Hematocrit 36.1 % (39.0-53.0) Mean Corpuscular Volume 83 fL (79-100) Mean Corpuscular Hemoglobin 26 pg (25-35) Mean Corpuscular Hemoglobin Concent 32 g/dL (31-37) Red Cell Distribution Width 15.0 % (11.5-14.5) Platelet Count 174 x10^3/uL (140-400) Neutrophils (%) (Auto) 61 % (31-73) Lymphocytes (%) (Auto) 27 % (24-48) Monocytes (%) (Auto) 10 % (0-9) Eosinophils (%) (Auto) 2 % (0-3) Basophils (%) (Auto) 1 % (0-3) Neutrophils # (Auto) 3.8 x10^3uL (1.8-7.7) Lymphocytes # (Auto) 1.7 x10^3/uL (1.0-4.8) Monocytes # (Auto) 0.6 x10^3/uL (0.0-1.1) Eosinophils # (Auto) 0.1 x10^3/uL (0.0-0.7) Basophils # (Auto) 0.0 x10^3/uL (0.0-0.2) Sodium Level 144 mmol/L (136-145) Potassium Level 3.2 mmol/L (3.5-5.1) Chloride Level 106 mmol/L (98-107) Carbon Dioxide Level 29 mmol/L (21-32) Anion Gap 9 (6-14) Blood Urea Nitrogen 7 mg/dL (8-26) Creatinine 0.9 mg/dL (0.7-1.3) Estimated GFR (Cockcroft-Gault) 101.5 Glucose Level 126 mg/dL (70-99) Calcium Level 8.5 mg/dL (8.5-10.1) Microbiology 05/14/17 Blood Culture - Preliminary, Resulted NO GROWTH AFTER 3 DAYS 05/14/17 Urine Culture - Final, Complete 05/14/17 Urine Culture Result 1 (KATHY) - Final, Complete 05/14/17 Antimicrobic Susceptibility - Final, Complete Medications Current Medications Nitroglycerin (Nitrostat) 0.4 mg PRN Q5MIN PRN SL CHEST PAIN; Start 05/14/17 at 14:30 Sodium Chloride 1,000 ml @ 2,520 mls/hr Q24M IV Last administered on 18:02; Start 05/14/17 at 16:13; Stop 05/14/17 at 17:12; Status DC Vancomycin HCl (Vanco Per Pharmacy) 1 each PRN DAILY PRN MC SEE COMMENTS Last administered on 05/15/17 13:26; Start 05/14/17 at 16:15; Stop 05/16/17 at 14:23 ; Status DC Piperacillin Sod/ Tazobactam Sod (Zosyn Per Pharmacy) 1 each PRN DAILY PRN MC SEE COMMENTS; Start 05/14/17 at 16:15; Stop 05/17/17 at 14:20; Status DC Vancomycin HCl 2 gm/Sodium Chloride 500 ml @ 250 mls/hr 1X ONCE IV Last administered on 05/14/17 17:28; Start 05/14/17 at 16:30; Stop 05/14/17 at 18:29 ; Status DC Piperacillin Sod/ Tazobactam Sod 4.5 gm/Sodium Chloride 100 ml @ 200 mls/hr 1X ONCE IV Last administered on 05/14/17 16:45; Start 05/14/17 at 16:30; Stop 05/14/17 at 16:59; Status DC Vancomycin HCl 1.25 gm/Sodium Chloride 250 ml @ 167 mls/hr Q12H IV Last administered on 05/16/17 04:55; Start 05/15/17 at 05:00; Stop 05/16/17 at 14:21 ; Status DC Ondansetron HCl (Zofran) 4 mg 1X ONCE IV Last administered on 05/14/17 18:15 ; Start 05/14/17 at 18:15; Stop 05/14/17 at 18:18; Status DC Ondansetron HCl (Zofran) 4 mg STK-MED ONCE .ROUTE ; Start 05/14/17 at 18:11; Stop 05/14/17 at 18:12; Status DC Ondansetron HCl (Zofran) 4 mg PRN Q8HRS PRN IV NAUSEA/VOMITING; Start 05/14/17 at 18:15; Stop 05/15/17 at 18:14; Status DC Morphine Sulfate 2 mg PRN Q2HR PRN IV PAIN; Start 05/14/17 at 18:15; Stop 05/15 at 18:14; Status DC Vancomycin HCl 1 each 1X ONCE MC ; Start 05/16/17 at 16:30; Stop 05/16/17 at 16 :31; Status Cancel Piperacillin Sod/ Tazobactam Sod 4.5 gm/Sodium Chloride 100 ml @ 200 mls/hr Q6HRS IV Last administered on 05/17/17 06:00; Start 05/14/17 at 23:00; Stop at 08:57; Status DC Albuterol Sulfate (Ventolin Neb Soln) 2.5 mg PRN QID PRN NEB ASTHMA; Start at 19:30 Atorvastatin Calcium (Lipitor) 40 mg QHS PO Last administered on 05/16/17 21: 07; Start 05/14/17 at 21:00; Stop 05/17/17 at 12:43; Status DC Clopidogrel Bisulfate (Plavix) 75 mg DAILYWBKFT PO Last administered on 08:20; Start 05/15/17 at 08:00; Stop 05/16/17 at 11:44; Status DC Furosemide (Lasix) 40 mg DAILY PO Last administered on 05/18/17 09:15; Start 05/15/17 at 09:00 Lisinopril (Prinivil) 2.5 mg DAILY PO Last administered on 05/18/17 09:14; Start 05/15/17 at 09:00 Metoprolol Succinate (Toprol Xl) 25 mg DAILY PO Last administered on 05/17/17 08:15; Start 05/15/17 at 09:00; Stop 05/17/17 at 16:31; Status DC Potassium Chloride (Klor-Con) 10 meq DAILYWBKFT PO Last administered on 08:19; Start 05/15/17 at 08:00; Stop 05/16/17 at 09:53; Status DC Tamsulosin HCl (Flomax) 0.8 mg QHS PO Last administered on 05/17/17 21:47; Start 05/14/17 at 21:00 Acetaminophen (Tylenol) 650 mg PRN Q6HRS PRN PO Headache Last administered on 06:39; Start 05/15/17 at 10:45 Meclizine HCl (Antivert) 12.5 mg TID PO Last administered on 05/18/17 09:15; Start 05/15/17 at 14:00 Gadobutrol (Gadavist) 7.5 mmol 1X ONCE IV Last administered on 05/15/17 18:21 ; Start 05/15/17 at 18:00; Stop 05/15/17 at 18:01; Status DC Potassium Chloride (Klor-Con) 40 meq 1X ONCE PO Last administered on 10:07; Start 05/16/17 at 09:00; Stop 05/16/17 at 09:04; Status DC Magnesium Sulfate/ Dextrose 50 ml @ 25 mls/hr 1X ONCE IV Last administered on 05/16/17 10:06; Start 05/16/17 at 09:00; Stop 05/16/17 at 10:59; Status DC Aspirin (Ecotrin) 81 mg DAILYWBKFT PO Last administered on 05/18/17 09:14; Start 05/16/17 at 09:30 Potassium Chloride (Klor-Con) 20 meq DAILYWBKFT PO Last administered on 09:15; Start 05/17/17 at 08:00 Potassium Chloride (Klor-Con) 40 meq 1X ONCE PO Last administered on 14:45; Start 05/16/17 at 15:00; Stop 05/16/17 at 15:01; Status DC Magnesium Sulfate/ Dextrose 50 ml @ 25 mls/hr 1X ONCE IV Last administered on 05/16/17 12:23; Start 05/16/17 at 10:30; Stop 05/16/17 at 12:29; Status DC Ondansetron HCl (Zofran) 4 mg PRN Q8HRS PRN IV NAUSEA/VOMITING; Start 05/17/17 at 08:30 Ceftriaxone Sodium 1 gm/ Sodium Chloride 50 ml @ 100 mls/hr Q24H IV Last administered on 05/18/17 10:15; Start 05/17/17 at 10:00 Atorvastatin Calcium (Lipitor) 80 mg QHS PO Last administered on 05/17/17 21: 48; Start 05/17/17 at 21:00 Metoprolol Succinate (Toprol Xl) 50 mg DAILY PO Last administered on 05/18/17 09:15; Start 05/18/17 at 09:00 Active Scripts Active Klor-Con M10 (Potassium Chloride) 10 Meq Tab.er.prt 10 Meq PO DAILYWBKFT Metoprolol Succinate ( Xl ) (Metoprolol Succinate) 25 Mg Tab.er.24h 25 Mg PO DAILY Lisinopril 2.5 Mg Tablet 2.5 Mg PO DAILY Furosemide 40 Mg Tablet 40 Mg PO DAILY Clopidogrel (Clopidogrel Bisulfate) 75 Mg Tablet 75 Mg PO DAILYWBKFT Reported Albuterol Sulfate Neb Soln (Albuterol Sulfate) 2.5 Mg/3 Ml Vial.neb 2.5 Mg NEB QID PRN Flomax (Tamsulosin Hcl) 0.4 Mg Cap.er.24h 2 Cap PO DAILY Lipitor (Atorvastatin Calcium) 40 Mg Tablet 1 Tab PO QHS Tylenol (Acetaminophen) 325 Mg Tablet 1-2 Tab PO Q6HRS PRN Vitals/I & O Vital Sign - Last 24 Hours 05/17/17 05/17/17 05/17/17 05/17/17 12:47 12:52 12:57 15:00 Temp 96.8 96.8 Pulse 91 Resp 20 B/P (MAP) 144/101 (115) 136/105 (115) 127/98 (108) 120/86 (97) Pulse Ox 100 O2 Delivery Room Air 05/17/17 05/17/17 05/17/17 05/17/17 19:00 20:00 23:00 23:48 Temp 97.5 97.7 97.5 97.7 Pulse 95 101 Resp 16 16 B/P (MAP) 130/95 (107) 118/86 (97) Pulse Ox 98 96 O2 Delivery Room Air Room Air Room Air Room Air 05/18/17 05/18/17 05/18/17 05/18/17 03:00 07:00 09:14 09:15 Temp 97.7 97.9 97.7 97.9 Pulse 99 87 87 87 Resp 16 18 B/P (MAP) 117/86 (96) 127/92 (104) 127/92 127/92 Pulse Ox 96 98 O2 Delivery Room Air Room Air 05/18/17 11:00 Temp 98.1 98.1 Pulse 90 Resp 18 B/P (MAP) 114/86 (95) Pulse Ox 99 O2 Delivery Room Air Intake and Output 05/17/17 05/17/17 05/18/17 15:00 23:00 07:00 Intake Total 360 ml 1000 ml 640 ml Output Total 750 ml 500 ml Balance 360 ml 250 ml 140 ml CEZAR BARRIGA MD May 18, 2017 12:01
--- NOTE | 2017-05-18 12:28 | PDOC ---
CARDIO Progress Notes Date and Time Date of Service 05/18/2017 Time of Evaluation 1200 Subjective Subjective: No Chest Pain, No shortness of breath, No Palpitations, Other ( occasional vertigo, dizziness, better, slight nausea but no vomiting. ) Vitals Vitals Vital Signs Date Time Temp Pulse Resp B/P (MAP) Pulse Ox O2 Delivery O2 Flow Rate FiO2 05/18/17 11:00 98.1 90 18 114/86 (95) 99 Room Air 98.1 Weight Weight [ ] Input and Output Intake and Output Intake and Output 05/18/17 07:00 Intake Total 2000 ml Output Total 1250 ml Balance 750 ml Intake Oral 2000 ml Output Urine Total 1250 ml Laboratory Labs Laboratory Tests Test 05/18/17 04:05 White Blood Count 6.3 x10^3/uL (4.0-11.0) Red Blood Count 4.36 x10^6/uL (4.30-5.70) Hemoglobin 11.5 g/dL (13.0-17.5) Hematocrit 36.1 % (39.0-53.0) Mean Corpuscular Volume 83 fL (79-100) Mean Corpuscular Hemoglobin 26 pg (25-35) Mean Corpuscular Hemoglobin Concent 32 g/dL (31-37) Red Cell Distribution Width 15.0 % (11.5-14.5) Platelet Count 174 x10^3/uL (140-400) Neutrophils (%) (Auto) 61 % (31-73) Lymphocytes (%) (Auto) 27 % (24-48) Monocytes (%) (Auto) 10 % (0-9) Eosinophils (%) (Auto) 2 % (0-3) Basophils (%) (Auto) 1 % (0-3) Neutrophils # (Auto) 3.8 x10^3uL (1.8-7.7) Lymphocytes # (Auto) 1.7 x10^3/uL (1.0-4.8) Monocytes # (Auto) 0.6 x10^3/uL (0.0-1.1) Eosinophils # (Auto) 0.1 x10^3/uL (0.0-0.7) Basophils # (Auto) 0.0 x10^3/uL (0.0-0.2) Sodium Level 144 mmol/L (136-145) Potassium Level 3.2 mmol/L (3.5-5.1) Chloride Level 106 mmol/L (98-107) Carbon Dioxide Level 29 mmol/L (21-32) Anion Gap 9 (6-14) Blood Urea Nitrogen 7 mg/dL (8-26) Creatinine 0.9 mg/dL (0.7-1.3) Estimated GFR (Cockcroft-Gault) 101.5 Glucose Level 126 mg/dL (70-99) Calcium Level 8.5 mg/dL (8.5-10.1) Microbiology Micro Microbiology 05/14/17 Blood Culture - Preliminary, Resulted NO GROWTH AFTER 3 DAYS 05/14/17 Urine Culture - Final, Complete 05/14/17 Urine Culture Result 1 (KATHY) - Final, Complete 05/14/17 Antimicrobic Susceptibility - Final, Complete Physical Exam HEENT: Neck Supple W Full Motion Chest: Symmetric LUNGS: Clear to Auscultation Heart: S1S2, RRR (SR) Abdomen: Soft N/T Extremities: No Edema, No Calf Tenderness Neurology: alert, oriented, follow commands Assessment Assessment 1. Tachyarrhythmia: x1 brief NSVT otherwise no further significant ectopies 2. CAD: S/P PCI/MAHSA to LM/LAD 04/23/2017. Stable 3. ICM: EF 15-20%.NYHA 2, remains compensated 4. HLP 5. UTI 6. GERD 7. Dizziness with noted acute/subacute cerebellar hemorrhage/edema: occasional dizziness and vertigo otherwise better. Recommendations 1. Continue on Toprol XL 50 mg. BP adequate, no orthostasis. 2. ECASA 81 mg. Discussed with neurology and per our discussion will resume plavix today or tomorrow if follow up brain imaging today is negative for further progression 3. Continue with secondary prevention. 3. Fluid restrictions [id number] ml/24 hours. Daily weight. 4. Keep K and Mg close to 4.0 and 2.0 respectively. Replace K today TREMAINE WALTON APRN May 18, 2017 12:28
[2017-05-18] MEDS ORDERED: POTASSIUM CHLORIDE 20 MEQ TABLET.ER. PO ONE (12:30)
[2017-05-18] MEDS: CLOPIDOGREL BISULFATE 75 MG TABLET PO SCH (13:00)
--- NOTE | 2017-05-18 13:54 | RAD ---
Indication follow-up hemorrhage. Noncontrast images of the head were obtained. Note is made of a MRI examination 3 days previously. Known hemorrhage involving the cerebellum and vermis is again seen with some associated surrounding edema. The hemorrhagic component measures approximately 2.4 cm in greatest dimension which measures larger by approximately 7 mm than on the corresponding MRI examination. Some of this apparent increase in size may be simply secondary to some edema and dissipation of blood products. There is no hydrocephalus. A new area of hemorrhage is not seen. Supratentorially the examination is unremarkable. The calvarium and paranasal sinuses appear unremarkable. IMPRESSION: Known posterior fossa hemorrhage appears slightly larger than on the MRI examination. Some of this may be secondary to edema and dissipation of blood products. Supratentorially no abnormality is seen. No hydrocephalus is seen PQRS Compliance Statement: One or more of the following individualized dose reduction techniques were utilized for this examination: 1. Automated exposure control 2. Adjustment of the mA and/or kV according to patient size 3. Use of iterative reconstruction technique
--- NOTE | 2017-05-18 14:08 | PDOC ---
PROGRESS NOTES Assessment Assessment Acute/subacute hemorrhage in midline of cerebellums with cerebral edema. Right eye vision disturbance, dizziness x 1 day before admission. Intermittent headaches. Generalized weakness. UTI, acute DM HLD CAD, s/p cardiac stents placement. COPD RECOMMENDATIONS/PLAN: Repeat HCT w/o contrast. Resume Plavix 75 mg daily per cardiology need for s/p stents placement. May need to be put on hold if ICH is worse. Continue Lipitor 40 mg HS. Treat UTI Treat medical diseases. OT/PT. Brain MRI w/wo contrast and MRA w/o contrast on 05/15/17: See above findings. HISTORY OF THE PRESENT ILLNESS: 66-y-old AA male patient with symptoms of prolonged generalized weakness and malaise to come to the ER of [facility]. He was hospitalized for further evaluation. He later complained right eye vision disturbance for 1 day described as twisted vision with imagine changes and abnormality when he steven down to his right side. He also has dizziness and intermitted headaches, so neurology was called for consultation. He stated he did not have symptoms like these before. He stated he is doing fine on 05/18 w/o recurrent vision disturbance in his right eye and no headache since here . PAST MEDICAL HISTORY: Please see above. PAST SURGERY HISTORY: No major surgery recently. ALLERGY: Reviewed. MEDICATIONS: Refer to [facility] FAMILY HISTORY: Non contributory. SOCIAL HISTORY: Lives at home. Denies current smoking, drinking, and illicit drug use. He smoked cigarettes in the past but quit many years ago. He drank alcohol in the past but quit about 20 years ago. REVIEW OF SYSTEMS: Constitutional: No malnutrition, weight loss, cachexia. Head: No traumatic brain or head injury. Skin: No edema, or rash. Ear: Chronic bilateral tinnitus. Eyes: No vision loss or color blindness. Nose: No bleeding or purulent discharges. Hearing: Hearing decrease. Neck: No injury. Cardiac: HLD. Pulmonary: No COPD. GI: No GI ulcer, GI bleeding. Urinary/genital: UTI. Endocrinologic: Diabetes Mellitus. Skeletomuscular: Generalized weakness. Neurological: see HP. Psychiatric: Denies drug use/abuse. Otherwise, not [id number] review of systems. PHYSICAL EXAMINATION: General appearance is in subacute distress. HEENT: Normocephalic and nontraumatic. Eyes, nose, ears, and throat are unremarkable. Neck is supple. No lymphadenopathy. No crepitus. Cardiovascular: S1, S2, regular rate and rhythm. Pulmonary: Clear to auscultation bilaterally. Abdomen: Bowel sounds are positive. Abdomen is soft, nontender, and nondistended. Extremities: No rash, lesions, or edema. No restriction of range of motion NEUROLOGICAL EXAMINATION: Alert Oriented to time, place and person. PERRL. EOMI. Mild bilateral horizontal nystagmus noted from time to time. CN: no focal findings. Muscle tone: within normal. Muscle strength: 5 DTR: 2 Plantar reflex: Flexor response bilaterally Gait: not examined in bed. Sensory exam: no abnormal findings. No cerebellar signs elicited. F-T-N test fine. Objective Objective Vital Signs Date Time Temp Pulse Resp B/P (MAP) Pulse Ox O2 Delivery O2 Flow Rate FiO2 05/18/17 11:00 98.1 90 18 114/86 (95) 99 Room Air 98.1 Intake and Output 05/18/17 07:00 Intake Total 2000 ml Output Total 1250 ml Balance 750 ml Intake Oral 2000 ml Output Urine Total 1250 ml Vitals Signs Vitals VS - Last 72 Hours, by Label Date Time Temp Pulse Resp B/P (MAP) Pulse Ox O2 Delivery O2 Flow Rate FiO2 05/18/17 11:00 98.1 90 18 114/86 (95) 99 Room Air 98.1 05/18/17 09:15 87 127/92 05/18/17 09:14 87 127/92 05/18/17 07:00 97.9 87 18 127/92 (104) 98 Room Air 97.9 05/18/17 03:00 97.7 99 16 117/86 (96) 96 Room Air 97.7 05/17/17 23:48 Room Air 05/17/17 23:00 97.7 101 16 118/86 (97) 96 Room Air 97.7 05/17/17 20:00 Room Air 05/17/17 19:00 97.5 95 16 130/95 (107) 98 Room Air 97.5 05/17/17 15:00 96.8 91 20 120/86 (97) 100 Room Air 96.8 05/17/17 12:57 127/98 (108) 05/17/17 12:52 136/105 (115) 05/17/17 12:47 144/101 (115) 05/17/17 11:00 97.5 91 20 130/99 (109) 94 Room Air 97.5 05/17/17 08:15 93 144/96 05/17/17 08:15 93 144/96 05/17/17 08:00 Room Air 05/17/17 07:00 97.5 93 20 144/96 (112) 98 Room Air 97.5 Laboratory Laboratory Laboratory Tests Test 05/18/17 04:05 White Blood Count 6.3 x10^3/uL (4.0-11.0) Red Blood Count 4.36 x10^6/uL (4.30-5.70) Hemoglobin 11.5 g/dL (13.0-17.5) Hematocrit 36.1 % (39.0-53.0) Mean Corpuscular Volume 83 fL (79-100) Mean Corpuscular Hemoglobin 26 pg (25-35) Mean Corpuscular Hemoglobin Concent 32 g/dL (31-37) Red Cell Distribution Width 15.0 % (11.5-14.5) Platelet Count 174 x10^3/uL (140-400) Neutrophils (%) (Auto) 61 % (31-73) Lymphocytes (%) (Auto) 27 % (24-48) Monocytes (%) (Auto) 10 % (0-9) Eosinophils (%) (Auto) 2 % (0-3) Basophils (%) (Auto) 1 % (0-3) Neutrophils # (Auto) 3.8 x10^3uL (1.8-7.7) Lymphocytes # (Auto) 1.7 x10^3/uL (1.0-4.8) Monocytes # (Auto) 0.6 x10^3/uL (0.0-1.1) Eosinophils # (Auto) 0.1 x10^3/uL (0.0-0.7) Basophils # (Auto) 0.0 x10^3/uL (0.0-0.2) Sodium Level 144 mmol/L (136-145) Potassium Level 3.2 mmol/L (3.5-5.1) Chloride Level 106 mmol/L (98-107) Carbon Dioxide Level 29 mmol/L (21-32) Anion Gap 9 (6-14) Blood Urea Nitrogen 7 mg/dL (8-26) Creatinine 0.9 mg/dL (0.7-1.3) Estimated GFR (Cockcroft-Gault) 101.5 Glucose Level 126 mg/dL (70-99) Calcium Level 8.5 mg/dL (8.5-10.1) Microbiology 05/14/17 Blood Culture - Preliminary, Resulted NO GROWTH AFTER 3 DAYS 05/14/17 Urine Culture - Final, Complete 05/14/17 Urine Culture Result 1 (KATHY) - Final, Complete 05/14/17 Antimicrobic Susceptibility - Final, Complete Medication Medications Current Medications Atorvastatin Calcium (Lipitor) 80 mg QHS PO Last administered on 05/17/17 21: 48; Start 05/17/17 at 21:00 Clopidogrel Bisulfate (Plavix) 75 mg DAILYWBKFT PO ; Start 05/18/17 at 13:00 Metoprolol Succinate (Toprol Xl) 50 mg DAILY PO Last administered on 05/18/17 09:15; Start 05/18/17 at 09:00 Potassium Chloride (Klor-Con) 20 meq BIDAFTMEAL PO ; Start 05/18/17 at 18:00 Potassium Chloride (Klor-Con) 40 meq 1X ONCE PO Last administered on 12:18; Start 05/18/17 at 12:30; Stop 05/18/17 at 12:31; Status DC Comment Review of Relevant I have reviewed the following items raul (where applicable) has been applied. CHITO RIVERA MD May 18, 2017 14:08
[2017-05-18 15:00] VITALS: BP 127/101
[2017-05-18 19:20] VITALS: BP 111/75
[2017-05-18] MEDS: TAMSULOSIN 0.4 MG CAP.ER.24H. PO SCH (20:37)
[2017-05-18] MEDS: ATORVASTATIN CALCIUM 40 MG TABLET. PO SCH (20:37)
[2017-05-18 23:00] VITALS: BP 120/94
[2017-05-19 03:00] VITALS: BP 121/84
[2017-05-19 05:59] LABS: BASO % 1 % (0-3); EOS % 3 % (0-3); HEMATOCRIT 38.1 % (39.0-53.0); HEMOGLOBIN 12.1 g/dL (13.0-17.5); LYMPH % 31 % (24-48); MEAN CORPUSCULAR HEMOGLOBIN 27 pg (25-35); MEAN CORPUSCULAR HGB CONC 32 g/dL (31-37); MEAN CORPUSCULAR VOLUME 83 fL (79-100); MONO % 8 % (0-9); NEUT % 58 % (31-73); PLATELET COUNT 164 x10^3/uL (140-400); RED BLOOD COUNT 4.58 x10^6/uL (4.30-5.70); RED CELL DISTRIBUTION WIDTH 15.3 % (11.5-14.5); WHITE BLOOD COUNT 6.4 x10^3/uL (4.0-11.0)
[2017-05-19 06:11] LABS: CALCIUM 8.8 mg/dL (8.5-10.1); CREATININE 0.9 mg/dL (0.7-1.3); GFR 101.5; POTASSIUM 3.7 mmol/L (3.5-5.1)
[2017-05-19 07:00] VITALS: BP 109/81
[2017-05-19] MEDS: CLOPIDOGREL BISULFATE 75 MG TABLET PO SCH (08:00)
[2017-05-19] MEDS: FUROSEMIDE 40 MG TABLET. PO SCH (10:34)
[2017-05-19] MEDS: ASPIRIN ENTERIC COATED 81 MG TABLET.DR. PO SCH (10:34)
[2017-05-19] MEDS: METOPROLOL SUCC 24HR ER 50 MG TAB.ER.24H. PO SCH (10:35)
[2017-05-19] MEDS: POTASSIUM CHLORIDE 20 MEQ TABLET.ER. PO SCH ×2 (10:35→17:31)
[2017-05-19] MEDS: LISINOPRIL 2.5 MG TABLET PO SCH (10:36)
[2017-05-19] MEDS: MECLIZINE HCL 12.5 MG TABLET. PO SCH ×3 (10:36→20:31)
[2017-05-19 11:00] VITALS: BP 118/87
--- NOTE | 2017-05-19 11:11 | PDOC ---
PROGRESS NOTES Chief Complaint Chief Complaint 1. UTI Klebsiella sensitive to ciprofloxacin and her Levaquin 2. Coronary artery disease with recent LAD stent placement in March 3. Acute/subacute hemorrhage in midline of cerebellums with cerebral edema. 2. Cardiomyopathy 3. COPD 4. HLP 5. Fibromyalgia 6. BPH 7. Diverticulosis History of Present Illness History of Present Illness Complains of headache frontal nausea and dizzyness, difficulty ambulating No fever no chills No new weakness, same as before PT and OT, Neuro following, try to DC soon, sx should improve Vitals Vitals Vital Signs Date Time Temp Pulse Resp B/P (MAP) Pulse Ox O2 Delivery O2 Flow Rate FiO2 05/19/17 10:36 98 109/81 05/19/17 07:00 97.9 20 94 Room Air 97.9 Physical Exam Physical Exam right pupil always larger than left, prior eye injury, 2 retina surgeries, w/ visible scarring behind, vision in that eye is OK General: Alert, Oriented X3, Cooperative, No acute distress Heart: Regular rate (SR), Normal S1, Normal S2, Other (3/6 systolic murmur to LLS border) Lungs: Clear Abdomen: Soft, No tenderness Extremities: No cyanosis, No edema Skin: No breakdown, No significant lesion Labs LABS Laboratory Tests Test 05/19/17 05:06 White Blood Count 6.4 x10^3/uL (4.0-11.0) Red Blood Count 4.58 x10^6/uL (4.30-5.70) Hemoglobin 12.1 g/dL (13.0-17.5) Hematocrit 38.1 % (39.0-53.0) Mean Corpuscular Volume 83 fL (79-100) Mean Corpuscular Hemoglobin 27 pg (25-35) Mean Corpuscular Hemoglobin Concent 32 g/dL (31-37) Red Cell Distribution Width 15.3 % (11.5-14.5) Platelet Count 164 x10^3/uL (140-400) Neutrophils (%) (Auto) 58 % (31-73) Lymphocytes (%) (Auto) 31 % (24-48) Monocytes (%) (Auto) 8 % (0-9) Eosinophils (%) (Auto) 3 % (0-3) Basophils (%) (Auto) 1 % (0-3) Neutrophils # (Auto) 3.7 x10^3uL (1.8-7.7) Lymphocytes # (Auto) 2.0 x10^3/uL (1.0-4.8) Monocytes # (Auto) 0.5 x10^3/uL (0.0-1.1) Eosinophils # (Auto) 0.2 x10^3/uL (0.0-0.7) Basophils # (Auto) 0.0 x10^3/uL (0.0-0.2) Sodium Level 143 mmol/L (136-145) Potassium Level 3.7 mmol/L (3.5-5.1) Chloride Level 106 mmol/L (98-107) Carbon Dioxide Level 27 mmol/L (21-32) Anion Gap 10 (6-14) Blood Urea Nitrogen 10 mg/dL (8-26) Creatinine 0.9 mg/dL (0.7-1.3) Estimated GFR (Cockcroft-Gault) 101.5 Glucose Level 128 mg/dL (70-99) Calcium Level 8.8 mg/dL (8.5-10.1) Assessment and Plan Assessmemt and Plan Problems Medical Problems: (1) Urinary tract infection Status: Acute Problems: Comment Review of Relevant I have reviewed the following items raul (where applicable) has been applied. Labs Laboratory Tests Test 05/18/17 04:05 05/19/17 05:06 White Blood Count 6.3 x10^3/uL (4.0-11.0) 6.4 x10^3/uL (4.0-11.0) Red Blood Count 4.36 x10^6/uL (4.30-5.70) 4.58 x10^6/uL (4.30-5.70) Hemoglobin 11.5 g/dL (13.0-17.5) 12.1 g/dL (13.0-17.5) Hematocrit 36.1 % (39.0-53.0) 38.1 % (39.0-53.0) Mean Corpuscular Volume 83 fL (79-100) 83 fL (79-100) Mean Corpuscular Hemoglobin 26 pg (25-35) 27 pg (25-35) Mean Corpuscular Hemoglobin Concent 32 g/dL (31-37) 32 g/dL (31-37) Red Cell Distribution Width 15.0 % (11.5-14.5) 15.3 % (11.5-14.5) Platelet Count 174 x10^3/uL (140-400) 164 x10^3/uL (140-400) Neutrophils (%) (Auto) 61 % (31-73) 58 % (31-73) Lymphocytes (%) (Auto) 27 % (24-48) 31 % (24-48) Monocytes (%) (Auto) 10 % (0-9) 8 % (0-9) Eosinophils (%) (Auto) 2 % (0-3) 3 % (0-3) Basophils (%) (Auto) 1 % (0-3) 1 % (0-3) Neutrophils # (Auto) 3.8 x10^3uL (1.8-7.7) 3.7 x10^3uL (1.8-7.7) Lymphocytes # (Auto) 1.7 x10^3/uL (1.0-4.8) 2.0 x10^3/uL (1.0-4.8) Monocytes # (Auto) 0.6 x10^3/uL (0.0-1.1) 0.5 x10^3/uL (0.0-1.1) Eosinophils # (Auto) 0.1 x10^3/uL (0.0-0.7) 0.2 x10^3/uL (0.0-0.7) Basophils # (Auto) 0.0 x10^3/uL (0.0-0.2) 0.0 x10^3/uL (0.0-0.2) Sodium Level 144 mmol/L (136-145) 143 mmol/L (136-145) Potassium Level 3.2 mmol/L (3.5-5.1) 3.7 mmol/L (3.5-5.1) Chloride Level 106 mmol/L (98-107) 106 mmol/L (98-107) Carbon Dioxide Level 29 mmol/L (21-32) 27 mmol/L (21-32) Anion Gap 9 (6-14) 10 (6-14) Blood Urea Nitrogen 7 mg/dL (8-26) 10 mg/dL (8-26) Creatinine 0.9 mg/dL (0.7-1.3) 0.9 mg/dL (0.7-1.3) Estimated GFR (Cockcroft-Gault) 101.5 101.5 Glucose Level 126 mg/dL (70-99) 128 mg/dL (70-99) Calcium Level 8.5 mg/dL (8.5-10.1) 8.8 mg/dL (8.5-10.1) Laboratory Tests Test 05/19/17 05:06 White Blood Count 6.4 x10^3/uL (4.0-11.0) Red Blood Count 4.58 x10^6/uL (4.30-5.70) Hemoglobin 12.1 g/dL (13.0-17.5) Hematocrit 38.1 % (39.0-53.0) Mean Corpuscular Volume 83 fL (79-100) Mean Corpuscular Hemoglobin 27 pg (25-35) Mean Corpuscular Hemoglobin Concent 32 g/dL (31-37) Red Cell Distribution Width 15.3 % (11.5-14.5) Platelet Count 164 x10^3/uL (140-400) Neutrophils (%) (Auto) 58 % (31-73) Lymphocytes (%) (Auto) 31 % (24-48) Monocytes (%) (Auto) 8 % (0-9) Eosinophils (%) (Auto) 3 % (0-3) Basophils (%) (Auto) 1 % (0-3) Neutrophils # (Auto) 3.7 x10^3uL (1.8-7.7) Lymphocytes # (Auto) 2.0 x10^3/uL (1.0-4.8) Monocytes # (Auto) 0.5 x10^3/uL (0.0-1.1) Eosinophils # (Auto) 0.2 x10^3/uL (0.0-0.7) Basophils # (Auto) 0.0 x10^3/uL (0.0-0.2) Sodium Level 143 mmol/L (136-145) Potassium Level 3.7 mmol/L (3.5-5.1) Chloride Level 106 mmol/L (98-107) Carbon Dioxide Level 27 mmol/L (21-32) Anion Gap 10 (6-14) Blood Urea Nitrogen 10 mg/dL (8-26) Creatinine 0.9 mg/dL (0.7-1.3) Estimated GFR (Cockcroft-Gault) 101.5 Glucose Level 128 mg/dL (70-99) Calcium Level 8.8 mg/dL (8.5-10.1) Microbiology 05/14/17 Blood Culture - Preliminary, Resulted NO GROWTH AFTER 4 DAYS 05/14/17 Urine Culture - Final, Complete 05/14/17 Urine Culture Result 1 (KATHY) - Final, Complete 05/14/17 Antimicrobic Susceptibility - Final, Complete Medications Current Medications Nitroglycerin (Nitrostat) 0.4 mg PRN Q5MIN PRN SL CHEST PAIN; Start 05/14/17 at 14:30 Sodium Chloride 1,000 ml @ 2,520 mls/hr Q24M IV Last administered on 18:02; Start 05/14/17 at 16:13; Stop 05/14/17 at 17:12; Status DC Vancomycin HCl (Vanco Per Pharmacy) 1 each PRN DAILY PRN MC SEE COMMENTS Last administered on 05/15/17 13:26; Start 05/14/17 at 16:15; Stop 05/16/17 at 14:23 ; Status DC Piperacillin Sod/ Tazobactam Sod (Zosyn Per Pharmacy) 1 each PRN DAILY PRN MC SEE COMMENTS; Start 05/14/17 at 16:15; Stop 05/17/17 at 14:20; Status DC Vancomycin HCl 2 gm/Sodium Chloride 500 ml @ 250 mls/hr 1X ONCE IV Last administered on 05/14/17 17:28; Start 05/14/17 at 16:30; Stop 05/14/17 at 18:29 ; Status DC Piperacillin Sod/ Tazobactam Sod 4.5 gm/Sodium Chloride 100 ml @ 200 mls/hr 1X ONCE IV Last administered on 05/14/17 16:45; Start 05/14/17 at 16:30; Stop 05/14/17 at 16:59; Status DC Vancomycin HCl 1.25 gm/Sodium Chloride 250 ml @ 167 mls/hr Q12H IV Last administered on 05/16/17 04:55; Start 05/15/17 at 05:00; Stop 05/16/17 at 14:21 ; Status DC Ondansetron HCl (Zofran) 4 mg 1X ONCE IV Last administered on 05/14/17 18:15 ; Start 05/14/17 at 18:15; Stop 05/14/17 at 18:18; Status DC Ondansetron HCl (Zofran) 4 mg STK-MED ONCE .ROUTE ; Start 05/14/17 at 18:11; Stop 05/14/17 at 18:12; Status DC Ondansetron HCl (Zofran) 4 mg PRN Q8HRS PRN IV NAUSEA/VOMITING; Start 05/14/17 at 18:15; Stop 05/15/17 at 18:14; Status DC Morphine Sulfate 2 mg PRN Q2HR PRN IV PAIN; Start 05/14/17 at 18:15; Stop 05/15 at 18:14; Status DC Vancomycin HCl 1 each 1X ONCE MC ; Start 05/16/17 at 16:30; Stop 05/16/17 at 16 :31; Status Cancel Piperacillin Sod/ Tazobactam Sod 4.5 gm/Sodium Chloride 100 ml @ 200 mls/hr Q6HRS IV Last administered on 05/17/17 06:00; Start 05/14/17 at 23:00; Stop at 08:57; Status DC Albuterol Sulfate (Ventolin Neb Soln) 2.5 mg PRN QID PRN NEB ASTHMA; Start at 19:30 Atorvastatin Calcium (Lipitor) 40 mg QHS PO Last administered on 05/16/17 21: 07; Start 05/14/17 at 21:00; Stop 05/17/17 at 12:43; Status DC Clopidogrel Bisulfate (Plavix) 75 mg DAILYWBKFT PO Last administered on 08:20; Start 05/15/17 at 08:00; Stop 05/16/17 at 11:44; Status DC Furosemide (Lasix) 40 mg DAILY PO Last administered on 05/19/17 10:34; Start 05/15/17 at 09:00 Lisinopril (Prinivil) 2.5 mg DAILY PO Last administered on 05/19/17 10:36; Start 05/15/17 at 09:00 Metoprolol Succinate (Toprol Xl) 25 mg DAILY PO Last administered on 05/17/17 08:15; Start 05/15/17 at 09:00; Stop 05/17/17 at 16:31; Status DC Potassium Chloride (Klor-Con) 10 meq DAILYWBKFT PO Last administered on 08:19; Start 05/15/17 at 08:00; Stop 05/16/17 at 09:53; Status DC Tamsulosin HCl (Flomax) 0.8 mg QHS PO Last administered on 05/18/17 20:37; Start 05/14/17 at 21:00 Acetaminophen (Tylenol) 650 mg PRN Q6HRS PRN PO Headache Last administered on 20:37; Start 05/15/17 at 10:45 Meclizine HCl (Antivert) 12.5 mg TID PO Last administered on 05/19/17 10:36; Start 05/15/17 at 14:00 Gadobutrol (Gadavist) 7.5 mmol 1X ONCE IV Last administered on 05/15/17 18:21 ; Start 05/15/17 at 18:00; Stop 05/15/17 at 18:01; Status DC Potassium Chloride (Klor-Con) 40 meq 1X ONCE PO Last administered on 10:07; Start 05/16/17 at 09:00; Stop 05/16/17 at 09:04; Status DC Magnesium Sulfate/ Dextrose 50 ml @ 25 mls/hr 1X ONCE IV Last administered on 05/16/17 10:06; Start 05/16/17 at 09:00; Stop 05/16/17 at 10:59; Status DC Aspirin (Ecotrin) 81 mg DAILYWBKFT PO Last administered on 05/19/17 10:34; Start 05/16/17 at 09:30 Potassium Chloride (Klor-Con) 20 meq DAILYWBKFT PO Last administered on 09:15; Start 05/17/17 at 08:00; Stop 05/18/17 at 12:27; Status DC Potassium Chloride (Klor-Con) 40 meq 1X ONCE PO Last administered on 14:45; Start 05/16/17 at 15:00; Stop 05/16/17 at 15:01; Status DC Magnesium Sulfate/ Dextrose 50 ml @ 25 mls/hr 1X ONCE IV Last administered on 05/16/17 12:23; Start 05/16/17 at 10:30; Stop 05/16/17 at 12:29; Status DC Ondansetron HCl (Zofran) 4 mg PRN Q8HRS PRN IV NAUSEA/VOMITING; Start 05/17/17 at 08:30 Ceftriaxone Sodium 1 gm/ Sodium Chloride 50 ml @ 100 mls/hr Q24H IV Last administered on 05/19/17 10:00; Start 05/17/17 at 10:00 Atorvastatin Calcium (Lipitor) 80 mg QHS PO Last administered on 05/18/17 20: 37; Start 05/17/17 at 21:00 Metoprolol Succinate (Toprol Xl) 50 mg DAILY PO Last administered on 05/19/17 10:35; Start 05/18/17 at 09:00 Potassium Chloride (Klor-Con) 40 meq 1X ONCE PO Last administered on 12:18; Start 05/18/17 at 12:30; Stop 05/18/17 at 12:31; Status DC Clopidogrel Bisulfate (Plavix) 75 mg DAILYWBKFT PO ; Start 05/18/17 at 13:00 Potassium Chloride (Klor-Con) 20 meq BIDAFTMEAL PO Last administered on 10:35; Start 05/18/17 at 18:00 Active Scripts Active Klor-Con M10 (Potassium Chloride) 10 Meq Tab.er.prt 10 Meq PO DAILYWBKFT Metoprolol Succinate ( Xl ) (Metoprolol Succinate) 25 Mg Tab.er.24h 25 Mg PO DAILY Lisinopril 2.5 Mg Tablet 2.5 Mg PO DAILY Furosemide 40 Mg Tablet 40 Mg PO DAILY Clopidogrel (Clopidogrel Bisulfate) 75 Mg Tablet 75 Mg PO DAILYWBKFT Reported Albuterol Sulfate Neb Soln (Albuterol Sulfate) 2.5 Mg/3 Ml Vial.neb 2.5 Mg NEB QID PRN Flomax (Tamsulosin Hcl) 0.4 Mg Cap.er.24h 2 Cap PO DAILY Lipitor (Atorvastatin Calcium) 40 Mg Tablet 1 Tab PO QHS Tylenol (Acetaminophen) 325 Mg Tablet 1-2 Tab PO Q6HRS PRN Vitals/I & O Vital Sign - Last 24 Hours 05/18/17 05/18/17 05/18/17 05/18/17 15:00 19:20 20:05 23:00 Temp 97.5 98.9 98.1 97.5 98.9 98.1 Pulse 87 96 94 Resp 20 20 20 B/P (MAP) 127/101 (110) 111/75 (87) 120/94 (103) Pulse Ox 99 97 91 O2 Delivery Room Air Room Air Room Air Room Air 05/19/17 05/19/17 05/19/17 05/19/17 03:00 07:00 10:35 10:36 Temp 98.1 97.9 98.1 97.9 Pulse 100 98 98 98 Resp 20 20 B/P (MAP) 121/84 (96) 109/81 (90) 109/81 109/81 Pulse Ox 98 94 O2 Delivery Room Air Room Air Intake and Output 05/18/17 05/18/17 05/19/17 15:00 23:00 07:00 Intake Total 1180 ml 300 ml Output Total 800 ml 500 ml Balance 380 ml -200 ml BHAVANI BLAS MD May 19, 2017 11:11
[2017-05-19 11:58] LABS: PLT ESTIMATE ADEQUATE (ADEQUATE)
[2017-05-19] MEDS: ACETAMINOPHEN 325 MG TABLET. PO PRN ×2 (13:40→20:31)
--- NOTE | 2017-05-19 14:40 | PDOC ---
Provider Note Provider Note Worsening edema on head ct. plavix continues to be held. supportive care for now. restart when able to do so. continue ASA 81mg daily, bblocker, statin and real-inh. diuresis prn. thanks. MATHEW CHIU MD May 19, 2017 14:40
[2017-05-19 15:00] VITALS: BP 121/95
--- NOTE | 2017-05-19 16:00 | PDOC ---
PROGRESS NOTES Assessment Assessment Acute/subacute hemorrhage in midline of cerebellums with cerebral edema. Right eye vision disturbance, dizziness x 1 day before admission. Intermittent headaches. Generalized weakness. UTI, acute DM HLD CAD, s/p cardiac stents placement. COPD RECOMMENDATIONS/PLAN: Once again to hold Plavix 75 mg daily due to ICH. Resume it after a few days. Continue Lipitor 40 mg HS. Cardiology consulted. Treat UTI Treat medical diseases. OT/PT. Brain MRI w/wo contrast and MRA w/o contrast on 05/15/17: See above findings. HISTORY OF THE PRESENT ILLNESS: 66-y-old AA male patient with symptoms of prolonged generalized weakness and malaise to come to the ER of [facility]. He was hospitalized for further evaluation. He later complained right eye vision disturbance for 1 day described as twisted vision with imagine changes and abnormality when he steven down to his right side. He also has dizziness and intermitted headaches, so neurology was called for consultation. He stated he did not have symptoms like these before. He stated he is doing fine on 05/18 w/o recurrent vision disturbance in his right eye and no headache since here . PAST MEDICAL HISTORY: Please see above. Eye surgery but he did not remember which eye. PAST SURGERY HISTORY: No major surgery recently. ALLERGY: Reviewed. MEDICATIONS: Refer to [facility] HISTORY: Non contributory. SOCIAL HISTORY: Lives at home. Denies current smoking, drinking, and illicit drug use. He smoked cigarettes in the past but quit many years ago. He drank alcohol in the past but quit about 20 years ago. REVIEW OF SYSTEMS: Constitutional: No malnutrition, weight loss, cachexia. Head: No traumatic brain or head injury. Skin: No edema, or rash. Ear: Chronic bilateral tinnitus. Eyes: No vision loss or color blindness. Nose: No bleeding or purulent discharges. Hearing: Hearing decrease. Neck: No injury. Cardiac: HLD. Pulmonary: No COPD. GI: No GI ulcer, GI bleeding. Urinary/genital: UTI. Endocrinologic: Diabetes Mellitus. Skeletomuscular: Generalized weakness. Neurological: see HP. Psychiatric: Denies drug use/abuse. Otherwise, not [id number] review of systems. PHYSICAL EXAMINATION: General appearance is in subacute distress. HEENT: Normocephalic and nontraumatic. Eyes, nose, ears, and throat are unremarkable. Neck is supple. No lymphadenopathy. No crepitus. Cardiovascular: S1, S2, regular rate and rhythm. Pulmonary: Clear to auscultation bilaterally. Abdomen: Bowel sounds are positive. Abdomen is soft, nontender, and nondistended. Extremities: No rash, lesions, or edema. No restriction of range of motion NEUROLOGICAL EXAMINATION: Alert Oriented to time, place and person. Pupil is 4 mm in right side, and 1.5 to 2 mm in left side. (Hx of eye surgery). EOMI. Mild bilateral horizontal nystagmus noted from time to time. CN: no focal findings. Muscle tone: within normal. Muscle strength: 5 DTR: 2 Plantar reflex: Flexor response bilaterally Gait: not examined in bed. Sensory exam: no abnormal findings. No cerebellar signs elicited. F-T-N test fine. Objective Objective Vital Signs Date Time Temp Pulse Resp B/P (MAP) Pulse Ox O2 Delivery O2 Flow Rate FiO2 05/19/17 11:00 97.7 90 18 118/87 (97) 97 Room Air 97.7 Intake and Output 05/19/17 07:00 Intake Total 1480 ml Output Total 1300 ml Balance 180 ml Intake Oral 1480 ml Output Urine Total 1300 ml # Voids 1 Vitals Signs Vitals VS - Last 72 Hours, by Label Date Time Temp Pulse Resp B/P (MAP) Pulse Ox O2 Delivery O2 Flow Rate FiO2 05/19/17 11:00 97.7 90 18 118/87 (97) 97 Room Air 97.7 05/19/17 10:36 98 109/81 05/19/17 10:35 98 109/81 05/19/17 08:00 Room Air 05/19/17 07:00 97.9 98 20 109/81 (90) 94 Room Air 97.9 05/19/17 03:00 98.1 100 20 121/84 (96) 98 Room Air 98.1 05/18/17 23:00 98.1 94 20 120/94 (103) 91 Room Air 98.1 05/18/17 20:05 Room Air 05/18/17 19:20 98.9 96 20 111/75 (87) 97 Room Air 98.9 05/18/17 15:00 97.5 87 20 127/101 (110) 99 Room Air 97.5 05/18/17 11:00 98.1 90 18 114/86 (95) 99 Room Air 98.1 05/18/17 09:15 87 127/92 05/18/17 09:14 87 127/92 05/18/17 08:15 Room Air 05/18/17 07:00 97.9 87 18 127/92 (104) 98 Room Air 97.9 Laboratory Laboratory Laboratory Tests Test 05/19/17 05:06 White Blood Count 6.4 x10^3/uL (4.0-11.0) Red Blood Count 4.58 x10^6/uL (4.30-5.70) Hemoglobin 12.1 g/dL (13.0-17.5) Hematocrit 38.1 % (39.0-53.0) Mean Corpuscular Volume 83 fL (79-100) Mean Corpuscular Hemoglobin 27 pg (25-35) Mean Corpuscular Hemoglobin Concent 32 g/dL (31-37) Red Cell Distribution Width 15.3 % (11.5-14.5) Platelet Count 164 x10^3/uL (140-400) Neutrophils (%) (Auto) 58 % (31-73) Lymphocytes (%) (Auto) 31 % (24-48) Monocytes (%) (Auto) 8 % (0-9) Eosinophils (%) (Auto) 3 % (0-3) Basophils (%) (Auto) 1 % (0-3) Neutrophils # (Auto) 3.7 x10^3uL (1.8-7.7) Lymphocytes # (Auto) 2.0 x10^3/uL (1.0-4.8) Monocytes # (Auto) 0.5 x10^3/uL (0.0-1.1) Eosinophils # (Auto) 0.2 x10^3/uL (0.0-0.7) Basophils # (Auto) 0.0 x10^3/uL (0.0-0.2) Platelet Estimate Adequate (ADEQUATE) Large Platelets Present Sodium Level 143 mmol/L (136-145) Potassium Level 3.7 mmol/L (3.5-5.1) Chloride Level 106 mmol/L (98-107) Carbon Dioxide Level 27 mmol/L (21-32) Anion Gap 10 (6-14) Blood Urea Nitrogen 10 mg/dL (8-26) Creatinine 0.9 mg/dL (0.7-1.3) Estimated GFR (Cockcroft-Gault) 101.5 Glucose Level 128 mg/dL (70-99) Calcium Level 8.8 mg/dL (8.5-10.1) Microbiology 05/14/17 Blood Culture - Preliminary, Resulted NO GROWTH AFTER 4 DAYS 05/14/17 Urine Culture - Final, Complete 05/14/17 Urine Culture Result 1 (KATHY) - Final, Complete 05/14/17 Antimicrobic Susceptibility - Final, Complete Medication Medications Current Medications Aspirin (Ecotrin) 162 mg DAILYWBKFT PO ; Start 05/20/17 at 08:00 Potassium Chloride (Klor-Con) 20 meq BIDAFTMEAL PO Last administered on t 10:35; Start 05/18/17 at 18:00 Comment Review of Relevant I have reviewed the following items raul (where applicable) has been applied. CHITO RIVERA MD May 19, 2017 16:00
[2017-05-19 19:58] VITALS: BP 109/75
[2017-05-19] MEDS: ATORVASTATIN CALCIUM 40 MG TABLET. PO SCH (20:31)
[2017-05-19] MEDS: TAMSULOSIN 0.4 MG CAP.ER.24H. PO SCH (20:31)
[2017-05-19 23:10] VITALS: BP 123/89
[2017-05-20 03:16] VITALS: BP 118/90
[2017-05-20 06:01] LABS: BASO % 0 % (0-3); EOS % 3 % (0-3); HEMATOCRIT 36.2 % (39.0-53.0); HEMOGLOBIN 11.5 g/dL (13.0-17.5); LYMPH % 31 % (24-48); MEAN CORPUSCULAR HEMOGLOBIN 27 pg (25-35); MEAN CORPUSCULAR HGB CONC 32 g/dL (31-37); MEAN CORPUSCULAR VOLUME 84 fL (79-100); MONO % 9 % (0-9); NEUT % 58 % (31-73); PLATELET COUNT 166 x10^3/uL (140-400); RED BLOOD COUNT 4.31 x10^6/uL (4.30-5.70); RED CELL DISTRIBUTION WIDTH 15.1 % (11.5-14.5); WHITE BLOOD COUNT 6.4 x10^3/uL (4.0-11.0)
[2017-05-20 06:14] LABS: CREATININE 0.9 mg/dL (0.7-1.3); GFR 101.5; POTASSIUM 4.1 mmol/L (3.5-5.1)
[2017-05-20 07:00] VITALS: BP 131/91
[2017-05-20] MEDS: POTASSIUM CHLORIDE 20 MEQ TABLET.ER. PO SCH ×2 (07:49→14:34)
[2017-05-20] MEDS: ASPIRIN ENTERIC COATED 81 MG TABLET.DR. PO SCH (07:49)
[2017-05-20] MEDS: ACETAMINOPHEN 325 MG TABLET. PO PRN ×3 (07:49→20:12)
[2017-05-20] MEDS: MECLIZINE HCL 12.5 MG TABLET. PO SCH ×3 (07:49→20:12)
[2017-05-20] MEDS: FUROSEMIDE 40 MG TABLET. PO SCH (07:49)
[2017-05-20] MEDS: METOPROLOL SUCC 24HR ER 50 MG TAB.ER.24H. PO SCH (07:52)
[2017-05-20] MEDS: LISINOPRIL 2.5 MG TABLET PO SCH (07:52)
[2017-05-20 11:00] VITALS: BP 149/91
--- NOTE | 2017-05-20 11:24 | PDOC ---
PROGRESS NOTES Chief Complaint Chief Complaint Chief complaint headache Assessment and plan 1. UTI Klebsiella on IV Rocephin 2. Coronary artery disease with recent LAD stent placement in March 3. Acute/subacute hemorrhage in midline of cerebellums with cerebral edema. 2. Cardiomyopathy 3. COPD 4. HLP 5. Fibromyalgia 6. BPH 7. Diverticulosis Plan Continue current antibiotics, patient still have some incontinence Holding Plavix due to worsening the intra-cerebral hemorrhage seen on repeat CT. Repeat CT for any worsening of symptoms such as headaches or vision problems or nausea or vomiting Neurology and cardiology following Cardiology recommended to resume Plavix as soon as possible given given his LAD stents Continue physical therapy and occupational therapy Labs reviewed Discharge planning based on cardiology and neurology recommendations, not ready to be discharged today History of Present Illness History of Present Illness Still has some dizziness while he was walking Urinary incontinence No headaches No nausea or vomiting No vision problems Vitals Vitals Vital Signs Date Time Temp Pulse Resp B/P (MAP) Pulse Ox O2 Delivery O2 Flow Rate FiO2 05/20/17 08:00 Room Air 05/20/17 07:52 94 131/91 05/20/17 07:00 96.1 18 100 96.1 Physical Exam General: Alert, Oriented X3, Cooperative, No acute distress Heart: Regular rate (SR), Normal S1, Normal S2, Other (3/6 systolic murmur to LLS border) Lungs: Clear Abdomen: Soft, No tenderness Extremities: No cyanosis, No edema Skin: No breakdown, No significant lesion Labs LABS Laboratory Tests Test 05/20/17 05:25 White Blood Count 6.4 x10^3/uL (4.0-11.0) Red Blood Count 4.31 x10^6/uL (4.30-5.70) Hemoglobin 11.5 g/dL (13.0-17.5) Hematocrit 36.2 % (39.0-53.0) Mean Corpuscular Volume 84 fL (79-100) Mean Corpuscular Hemoglobin 27 pg (25-35) Mean Corpuscular Hemoglobin Concent 32 g/dL (31-37) Red Cell Distribution Width 15.1 % (11.5-14.5) Platelet Count 166 x10^3/uL (140-400) Neutrophils (%) (Auto) 58 % (31-73) Lymphocytes (%) (Auto) 31 % (24-48) Monocytes (%) (Auto) 9 % (0-9) Eosinophils (%) (Auto) 3 % (0-3) Basophils (%) (Auto) 0 % (0-3) Neutrophils # (Auto) 3.7 x10^3uL (1.8-7.7) Lymphocytes # (Auto) 2.0 x10^3/uL (1.0-4.8) Monocytes # (Auto) 0.5 x10^3/uL (0.0-1.1) Eosinophils # (Auto) 0.2 x10^3/uL (0.0-0.7) Basophils # (Auto) 0.0 x10^3/uL (0.0-0.2) Sodium Level 144 mmol/L (136-145) Potassium Level 4.1 mmol/L (3.5-5.1) Chloride Level 108 mmol/L (98-107) Carbon Dioxide Level 26 mmol/L (21-32) Anion Gap 10 (6-14) Blood Urea Nitrogen 14 mg/dL (8-26) Creatinine 0.9 mg/dL (0.7-1.3) Estimated GFR (Cockcroft-Gault) 101.5 Glucose Level 128 mg/dL (70-99) Calcium Level 9.0 mg/dL (8.5-10.1) Assessment and Plan Assessmemt and Plan Problems Medical Problems: (1) Urinary tract infection Status: Acute Problems: Comment Review of Relevant I have reviewed the following items raul (where applicable) has been applied. Labs Laboratory Tests Test 05/19/17 05:06 05/20/17 05:25 White Blood Count 6.4 x10^3/uL (4.0-11.0) 6.4 x10^3/uL (4.0-11.0) Red Blood Count 4.58 x10^6/uL (4.30-5.70) 4.31 x10^6/uL (4.30-5.70) Hemoglobin 12.1 g/dL (13.0-17.5) 11.5 g/dL (13.0-17.5) Hematocrit 38.1 % (39.0-53.0) 36.2 % (39.0-53.0) Mean Corpuscular Volume 83 fL (79-100) 84 fL (79-100) Mean Corpuscular Hemoglobin 27 pg (25-35) 27 pg (25-35) Mean Corpuscular Hemoglobin Concent 32 g/dL (31-37) 32 g/dL (31-37) Red Cell Distribution Width 15.3 % (11.5-14.5) 15.1 % (11.5-14.5) Platelet Count 164 x10^3/uL (140-400) 166 x10^3/uL (140-400) Neutrophils (%) (Auto) 58 % (31-73) 58 % (31-73) Lymphocytes (%) (Auto) 31 % (24-48) 31 % (24-48) Monocytes (%) (Auto) 8 % (0-9) 9 % (0-9) Eosinophils (%) (Auto) 3 % (0-3) 3 % (0-3) Basophils (%) (Auto) 1 % (0-3) 0 % (0-3) Neutrophils # (Auto) 3.7 x10^3uL (1.8-7.7) 3.7 x10^3uL (1.8-7.7) Lymphocytes # (Auto) 2.0 x10^3/uL (1.0-4.8) 2.0 x10^3/uL (1.0-4.8) Monocytes # (Auto) 0.5 x10^3/uL (0.0-1.1) 0.5 x10^3/uL (0.0-1.1) Eosinophils # (Auto) 0.2 x10^3/uL (0.0-0.7) 0.2 x10^3/uL (0.0-0.7) Basophils # (Auto) 0.0 x10^3/uL (0.0-0.2) 0.0 x10^3/uL (0.0-0.2) Platelet Estimate Adequate (ADEQUATE) Large Platelets Present Sodium Level 143 mmol/L (136-145) 144 mmol/L (136-145) Potassium Level 3.7 mmol/L (3.5-5.1) 4.1 mmol/L (3.5-5.1) Chloride Level 106 mmol/L (98-107) 108 mmol/L (98-107) Carbon Dioxide Level 27 mmol/L (21-32) 26 mmol/L (21-32) Anion Gap 10 (6-14) 10 (6-14) Blood Urea Nitrogen 10 mg/dL (8-26) 14 mg/dL (8-26) Creatinine 0.9 mg/dL (0.7-1.3) 0.9 mg/dL (0.7-1.3) Estimated GFR (Cockcroft-Gault) 101.5 101.5 Glucose Level 128 mg/dL (70-99) 128 mg/dL (70-99) Calcium Level 8.8 mg/dL (8.5-10.1) 9.0 mg/dL (8.5-10.1) Laboratory Tests Test 05/20/17 05:25 White Blood Count 6.4 x10^3/uL (4.0-11.0) Red Blood Count 4.31 x10^6/uL (4.30-5.70) Hemoglobin 11.5 g/dL (13.0-17.5) Hematocrit 36.2 % (39.0-53.0) Mean Corpuscular Volume 84 fL (79-100) Mean Corpuscular Hemoglobin 27 pg (25-35) Mean Corpuscular Hemoglobin Concent 32 g/dL (31-37) Red Cell Distribution Width 15.1 % (11.5-14.5) Platelet Count 166 x10^3/uL (140-400) Neutrophils (%) (Auto) 58 % (31-73) Lymphocytes (%) (Auto) 31 % (24-48) Monocytes (%) (Auto) 9 % (0-9) Eosinophils (%) (Auto) 3 % (0-3) Basophils (%) (Auto) 0 % (0-3) Neutrophils # (Auto) 3.7 x10^3uL (1.8-7.7) Lymphocytes # (Auto) 2.0 x10^3/uL (1.0-4.8) Monocytes # (Auto) 0.5 x10^3/uL (0.0-1.1) Eosinophils # (Auto) 0.2 x10^3/uL (0.0-0.7) Basophils # (Auto) 0.0 x10^3/uL (0.0-0.2) Sodium Level 144 mmol/L (136-145) Potassium Level 4.1 mmol/L (3.5-5.1) Chloride Level 108 mmol/L (98-107) Carbon Dioxide Level 26 mmol/L (21-32) Anion Gap 10 (6-14) Blood Urea Nitrogen 14 mg/dL (8-26) Creatinine 0.9 mg/dL (0.7-1.3) Estimated GFR (Cockcroft-Gault) 101.5 Glucose Level 128 mg/dL (70-99) Calcium Level 9.0 mg/dL (8.5-10.1) Microbiology 05/14/17 Blood Culture - Final, Complete NO GROWTH AFTER 5 DAYS 05/14/17 Urine Culture - Final, Complete 05/14/17 Urine Culture Result 1 (KATHY) - Final, Complete 05/14/17 Antimicrobic Susceptibility - Final, Complete Medications Current Medications Nitroglycerin (Nitrostat) 0.4 mg PRN Q5MIN PRN SL CHEST PAIN; Start 05/14/17 at 14:30 Sodium Chloride 1,000 ml @ 2,520 mls/hr Q24M IV Last administered on 18:02; Start 05/14/17 at 16:13; Stop 05/14/17 at 17:12; Status DC Vancomycin HCl (Vanco Per Pharmacy) 1 each PRN DAILY PRN MC SEE COMMENTS Last administered on 05/15/17 13:26; Start 05/14/17 at 16:15; Stop 05/16/17 at 14:23 ; Status DC Piperacillin Sod/ Tazobactam Sod (Zosyn Per Pharmacy) 1 each PRN DAILY PRN MC SEE COMMENTS; Start 05/14/17 at 16:15; Stop 05/17/17 at 14:20; Status DC Vancomycin HCl 2 gm/Sodium Chloride 500 ml @ 250 mls/hr 1X ONCE IV Last administered on 05/14/17 17:28; Start 05/14/17 at 16:30; Stop 05/14/17 at 18:29 ; Status DC Piperacillin Sod/ Tazobactam Sod 4.5 gm/Sodium Chloride 100 ml @ 200 mls/hr 1X ONCE IV Last administered on 05/14/17 16:45; Start 05/14/17 at 16:30; Stop 05/14/17 at 16:59; Status DC Vancomycin HCl 1.25 gm/Sodium Chloride 250 ml @ 167 mls/hr Q12H IV Last administered on 05/16/17 04:55; Start 05/15/17 at 05:00; Stop 05/16/17 at 14:21 ; Status DC Ondansetron HCl (Zofran) 4 mg 1X ONCE IV Last administered on 05/14/17 18:15 ; Start 05/14/17 at 18:15; Stop 05/14/17 at 18:18; Status DC Ondansetron HCl (Zofran) 4 mg STK-MED ONCE .ROUTE ; Start 05/14/17 at 18:11; Stop 05/14/17 at 18:12; Status DC Ondansetron HCl (Zofran) 4 mg PRN Q8HRS PRN IV NAUSEA/VOMITING; Start 05/14/17 at 18:15; Stop 05/15/17 at 18:14; Status DC Morphine Sulfate 2 mg PRN Q2HR PRN IV PAIN; Start 05/14/17 at 18:15; Stop 05/15 at 18:14; Status DC Vancomycin HCl 1 each 1X ONCE MC ; Start 05/16/17 at 16:30; Stop 05/16/17 at 16 :31; Status Cancel Piperacillin Sod/ Tazobactam Sod 4.5 gm/Sodium Chloride 100 ml @ 200 mls/hr Q6HRS IV Last administered on 05/17/17 06:00; Start 05/14/17 at 23:00; Stop at 08:57; Status DC Albuterol Sulfate (Ventolin Neb Soln) 2.5 mg PRN QID PRN NEB ASTHMA; Start at 19:30 Atorvastatin Calcium (Lipitor) 40 mg QHS PO Last administered on 05/16/17 21: 07; Start 05/14/17 at 21:00; Stop 05/17/17 at 12:43; Status DC Clopidogrel Bisulfate (Plavix) 75 mg DAILYWBKFT PO Last administered on 08:20; Start 05/15/17 at 08:00; Stop 05/16/17 at 11:44; Status DC Furosemide (Lasix) 40 mg DAILY PO Last administered on 05/20/17 07:49; Start 05/15/17 at 09:00 Lisinopril (Prinivil) 2.5 mg DAILY PO Last administered on 05/20/17 07:52; Start 05/15/17 at 09:00 Metoprolol Succinate (Toprol Xl) 25 mg DAILY PO Last administered on 05/17/17 08:15; Start 05/15/17 at 09:00; Stop 05/17/17 at 16:31; Status DC Potassium Chloride (Klor-Con) 10 meq DAILYWBKFT PO Last administered on 08:19; Start 05/15/17 at 08:00; Stop 05/16/17 at 09:53; Status DC Tamsulosin HCl (Flomax) 0.8 mg QHS PO Last administered on 05/19/17 20:31; Start 05/14/17 at 21:00 Acetaminophen (Tylenol) 650 mg PRN Q6HRS PRN PO Headache Last administered on 07:49; Start 05/15/17 at 10:45 Meclizine HCl (Antivert) 12.5 mg TID PO Last administered on 05/20/17 07:49; Start 05/15/17 at 14:00 Gadobutrol (Gadavist) 7.5 mmol 1X ONCE IV Last administered on 05/15/17 18:21 ; Start 05/15/17 at 18:00; Stop 05/15/17 at 18:01; Status DC Potassium Chloride (Klor-Con) 40 meq 1X ONCE PO Last administered on 10:07; Start 05/16/17 at 09:00; Stop 05/16/17 at 09:04; Status DC Magnesium Sulfate/ Dextrose 50 ml @ 25 mls/hr 1X ONCE IV Last administered on 05/16/17 10:06; Start 05/16/17 at 09:00; Stop 05/16/17 at 10:59; Status DC Aspirin (Ecotrin) 81 mg DAILYWBKFT PO Last administered on 05/19/17 10:34; Start 05/16/17 at 09:30; Stop 05/19/17 at 11:33; Status DC Potassium Chloride (Klor-Con) 20 meq DAILYWBKFT PO Last administered on 09:15; Start 05/17/17 at 08:00; Stop 05/18/17 at 12:27; Status DC Potassium Chloride (Klor-Con) 40 meq 1X ONCE PO Last administered on 14:45; Start 05/16/17 at 15:00; Stop 05/16/17 at 15:01; Status DC Magnesium Sulfate/ Dextrose 50 ml @ 25 mls/hr 1X ONCE IV Last administered on 05/16/17 12:23; Start 05/16/17 at 10:30; Stop 05/16/17 at 12:29; Status DC Ondansetron HCl (Zofran) 4 mg PRN Q8HRS PRN IV NAUSEA/VOMITING; Start 05/17/17 at 08:30 Ceftriaxone Sodium 1 gm/ Sodium Chloride 50 ml @ 100 mls/hr Q24H IV Last administered on 05/20/17 07:50; Start 05/17/17 at 10:00 Atorvastatin Calcium (Lipitor) 80 mg QHS PO Last administered on 05/19/17 20: 31; Start 05/17/17 at 21:00 Metoprolol Succinate (Toprol Xl) 50 mg DAILY PO Last administered on 05/20/17 07:52; Start 05/18/17 at 09:00 Potassium Chloride (Klor-Con) 40 meq 1X ONCE PO Last administered on 12:18; Start 05/18/17 at 12:30; Stop 05/18/17 at 12:31; Status DC Clopidogrel Bisulfate (Plavix) 75 mg DAILYWBKFT PO ; Start 05/18/17 at 13:00; Stop 05/19/17 at 11:33; Status DC Potassium Chloride (Klor-Con) 20 meq BIDAFTMEAL PO Last administered on 07:49; Start 05/18/17 at 18:00 Aspirin (Ecotrin) 162 mg DAILYWBKFT PO Last administered on 05/20/17 07:49; Start 05/20/17 at 08:00 Active Scripts Active Klor-Con M10 (Potassium Chloride) 10 Meq Tab.er.prt 10 Meq PO DAILYWBKFT Metoprolol Succinate ( Xl ) (Metoprolol Succinate) 25 Mg Tab.er.24h 25 Mg PO DAILY Lisinopril 2.5 Mg Tablet 2.5 Mg PO DAILY Furosemide 40 Mg Tablet 40 Mg PO DAILY Clopidogrel (Clopidogrel Bisulfate) 75 Mg Tablet 75 Mg PO DAILYWBKFT Reported Albuterol Sulfate Neb Soln (Albuterol Sulfate) 2.5 Mg/3 Ml Vial.neb 2.5 Mg NEB QID PRN Flomax (Tamsulosin Hcl) 0.4 Mg Cap.er.24h 2 Cap PO DAILY Lipitor (Atorvastatin Calcium) 40 Mg Tablet 1 Tab PO QHS Tylenol (Acetaminophen) 325 Mg Tablet 1-2 Tab PO Q6HRS PRN Vitals/I & O Vital Sign - Last 24 Hours 05/19/17 05/19/17 05/19/17 05/19/17 15:00 19:58 20:35 23:10 Temp 98.1 97.7 97.9 98.1 97.7 97.9 Pulse 89 94 91 Resp 20 18 18 B/P (MAP) 121/95 (104) 109/75 (86) 123/89 (100) Pulse Ox 97 97 98 O2 Delivery Room Air Room Air Room Air Room Air 05/20/17 05/20/17 05/20/17 05/20/17 03:16 07:00 07:52 07:52 Temp 97.7 96.1 97.7 96.1 Pulse 96 94 94 94 Resp 18 18 B/P (MAP) 118/90 (99) 131/91 (104) 131/91 131/91 Pulse Ox 91 100 O2 Delivery Room Air Room Air 05/20/17 08:00 O2 Delivery Room Air Intake and Output 05/19/17 05/19/17 05/20/17 15:00 23:00 07:00 Intake Total 360 ml 1050 ml 240 ml Output Total 50 ml 200 ml Balance 360 ml 1000 ml 40 ml CEZAR BARRIGA MD May 20, 2017 11:24
--- NOTE | 2017-05-20 14:19 | PDOC ---
PROGRESS NOTES Assessment Assessment Acute/subacute hemorrhage in midline of cerebellums with cerebral edema. Right eye vision disturbance, dizziness x 1 day before admission. Intermittent headaches. Generalized weakness. UTI, acute DM HLD CAD, s/p cardiac stents placement. COPD RECOMMENDATIONS/PLAN: Once again to hold Plavix 75 mg daily due to ICH. Resume it after repeat HCT after a few days. Continue Lipitor 40 mg HS. Cardiology consulted. Treat UTI Treat medical diseases. OT/PT. Brain MRI w/wo contrast and MRA w/o contrast on 05/15/17: See above findings. HISTORY OF THE PRESENT ILLNESS: 66-y-old AA male patient with symptoms of prolonged generalized weakness and malaise to come to the ER of [facility]. He was hospitalized for further evaluation. He later complained right eye vision disturbance for 1 day described as twisted vision with imagine changes and abnormality when he steven down to his right side. He also has dizziness and intermitted headaches, so neurology was called for consultation. He stated he did not have symptoms like these before. He stated he is doing fine on 05/20 w/o recurrent vision disturbance in his right eye but had mild headache in his frontal head from time to time. PAST MEDICAL HISTORY: Please see above. Eye surgery but he did not remember which eye. PAST SURGERY HISTORY: No major surgery recently. ALLERGY: Reviewed. MEDICATIONS: Refer to [facility] HISTORY: Non contributory. SOCIAL HISTORY: Lives at home. Denies current smoking, drinking, and illicit drug use. He smoked cigarettes in the past but quit many years ago. He drank alcohol in the past but quit about 20 years ago. REVIEW OF SYSTEMS: Constitutional: No malnutrition, weight loss, cachexia. Head: No traumatic brain or head injury. Skin: No edema, or rash. Ear: Chronic bilateral tinnitus. Eyes: No vision loss or color blindness. Nose: No bleeding or purulent discharges. Hearing: Hearing decrease. Neck: No injury. Cardiac: HLD. Pulmonary: No COPD. GI: No GI ulcer, GI bleeding. Urinary/genital: UTI. Endocrinologic: Diabetes Mellitus. Skeletomuscular: Generalized weakness. Neurological: see HP. Psychiatric: Denies drug use/abuse. Otherwise, not [id number] review of systems. PHYSICAL EXAMINATION: General appearance is in subacute distress. HEENT: Normocephalic and nontraumatic. Eyes, nose, ears, and throat are unremarkable. Neck is supple. No lymphadenopathy. No crepitus. Cardiovascular: S1, S2, regular rate and rhythm. Pulmonary: Clear to auscultation bilaterally. Abdomen: Bowel sounds are positive. Abdomen is soft, nontender, and nondistended. Extremities: No rash, lesions, or edema. No restriction of range of motion NEUROLOGICAL EXAMINATION: Alert Oriented to time, place and person. Pupil is 3 mm in right side, and 1.5 to 2 mm in left side. (Hx of eye surgery). EOMI. Mild bilateral horizontal nystagmus noted from time to time. CN: no focal findings. Muscle tone: within normal. Muscle strength: 5 DTR: 2 Plantar reflex: Flexor response bilaterally Gait: not examined in bed. Sensory exam: no abnormal findings. No cerebellar signs elicited. F-T-N test fine. Objective Objective Vital Signs Date Time Temp Pulse Resp B/P (MAP) Pulse Ox O2 Delivery O2 Flow Rate FiO2 05/20/17 11:00 96.4 81 20 149/91 (110) 99 Room Air 96.4 Intake and Output 05/20/17 07:00 Intake Total 1650 ml Output Total 250 ml Balance 1400 ml Intake Oral 1650 ml Output Urine Total 250 ml # Voids 3 Vitals Signs Vitals VS - Last 72 Hours, by Label Date Time Temp Pulse Resp B/P (MAP) Pulse Ox O2 Delivery O2 Flow Rate FiO2 05/20/17 11:00 96.4 81 20 149/91 (110) 99 Room Air 96.4 05/20/17 08:00 Room Air 05/20/17 07:52 94 131/91 05/20/17 07:52 94 131/91 05/20/17 07:00 96.1 94 18 131/91 (104) 100 Room Air 96.1 05/20/17 03:16 97.7 96 18 118/90 (99) 91 Room Air 97.7 05/19/17 23:10 97.9 91 18 123/89 (100) 98 Room Air 97.9 05/19/17 20:35 Room Air 05/19/17 19:58 97.7 94 18 109/75 (86) 97 Room Air 97.7 05/19/17 15:00 98.1 89 20 121/95 (104) 97 Room Air 98.1 05/19/17 11:00 97.7 90 18 118/87 (97) 97 Room Air 97.7 05/19/17 10:36 98 109/81 05/19/17 10:35 98 109/81 05/19/17 08:00 Room Air 05/19/17 07:00 97.9 98 20 109/81 (90) 94 Room Air 97.9 Laboratory Laboratory Laboratory Tests Test 05/20/17 05:25 White Blood Count 6.4 x10^3/uL (4.0-11.0) Red Blood Count 4.31 x10^6/uL (4.30-5.70) Hemoglobin 11.5 g/dL (13.0-17.5) Hematocrit 36.2 % (39.0-53.0) Mean Corpuscular Volume 84 fL (79-100) Mean Corpuscular Hemoglobin 27 pg (25-35) Mean Corpuscular Hemoglobin Concent 32 g/dL (31-37) Red Cell Distribution Width 15.1 % (11.5-14.5) Platelet Count 166 x10^3/uL (140-400) Neutrophils (%) (Auto) 58 % (31-73) Lymphocytes (%) (Auto) 31 % (24-48) Monocytes (%) (Auto) 9 % (0-9) Eosinophils (%) (Auto) 3 % (0-3) Basophils (%) (Auto) 0 % (0-3) Neutrophils # (Auto) 3.7 x10^3uL (1.8-7.7) Lymphocytes # (Auto) 2.0 x10^3/uL (1.0-4.8) Monocytes # (Auto) 0.5 x10^3/uL (0.0-1.1) Eosinophils # (Auto) 0.2 x10^3/uL (0.0-0.7) Basophils # (Auto) 0.0 x10^3/uL (0.0-0.2) Sodium Level 144 mmol/L (136-145) Potassium Level 4.1 mmol/L (3.5-5.1) Chloride Level 108 mmol/L (98-107) Carbon Dioxide Level 26 mmol/L (21-32) Anion Gap 10 (6-14) Blood Urea Nitrogen 14 mg/dL (8-26) Creatinine 0.9 mg/dL (0.7-1.3) Estimated GFR (Cockcroft-Gault) 101.5 Glucose Level 128 mg/dL (70-99) Calcium Level 9.0 mg/dL (8.5-10.1) Microbiology 05/14/17 Blood Culture - Final, Complete NO GROWTH AFTER 5 DAYS 05/14/17 Urine Culture - Final, Complete 05/14/17 Urine Culture Result 1 (KATHY) - Final, Complete 05/14/17 Antimicrobic Susceptibility - Final, Complete Medication Medications Current Medications Aspirin (Ecotrin) 162 mg [id number] PO Last administered on 05/20/17t 07:49; Start 05/20/17 at 08:00 Comment Review of Relevant I have reviewed the following items raul (where applicable) has been applied. CHITO RIVERA MD May 20, 2017 14:19
[2017-05-20 15:00] VITALS: BP 148/93
[2017-05-20 19:00] VITALS: BP 121/87
[2017-05-20] MEDS: TAMSULOSIN 0.4 MG CAP.ER.24H. PO SCH (20:12)
[2017-05-20] MEDS: ATORVASTATIN CALCIUM 40 MG TABLET. PO SCH (20:12)
[2017-05-20 23:46] VITALS: BP 119/88
[2017-05-21] VITALS (12 sets, daily range): BP systolic 118–133; BP diastolic 93–107
[2017-05-21 05:01] LABS: BASO % 0 % (0-3); EOS % 2 % (0-3); HEMATOCRIT 35.7 % (39.0-53.0); HEMOGLOBIN 11.5 g/dL (13.0-17.5); LYMPH # 1.5 x10^3/uL (1.0-4.8); LYMPH % 26 % (24-48); MEAN CORPUSCULAR HEMOGLOBIN 27 pg (25-35); MEAN CORPUSCULAR HGB CONC 32 g/dL (31-37); MEAN CORPUSCULAR VOLUME 83 fL (79-100); MONO % 8 % (0-9); NEUT % 64 % (31-73); PLATELET COUNT 143 x10^3/uL (140-400); RED BLOOD COUNT 4.28 x10^6/uL (4.30-5.70); RED CELL DISTRIBUTION WIDTH 15.6 % (11.5-14.5); WHITE BLOOD COUNT 5.8 x10^3/uL (4.0-11.0)
[2017-05-21 05:55] LABS: CREATININE 0.8 mg/dL (0.7-1.3); GFR 116.3
[2017-05-21] MEDS: MECLIZINE HCL 12.5 MG TABLET. PO SCH ×3 (10:28→21:28)
[2017-05-21] MEDS: LISINOPRIL 2.5 MG TABLET PO SCH (10:28)
[2017-05-21] MEDS: POTASSIUM CHLORIDE 20 MEQ TABLET.ER. PO SCH ×2 (10:28→16:55)
[2017-05-21] MEDS: FUROSEMIDE 40 MG TABLET. PO SCH (10:28)
[2017-05-21] MEDS: ASPIRIN ENTERIC COATED 81 MG TABLET.DR. PO SCH (10:28)
[2017-05-21] MEDS: METOPROLOL SUCC 24HR ER 50 MG TAB.ER.24H. PO SCH (10:29)
--- NOTE | 2017-05-21 10:37 | PDOC ---
PROGRESS NOTES Assessment Problems Medical Problems: (1) Urinary tract infection Status: Acute Acute/subacute hemorrhage in midline of cerebellums with cerebral edema. Right eye vision disturbance, dizziness x 1 day before admission. Intermittent headaches. Generalized weakness. Plan Repeat head CT today Holding Plavix. Continue Lipitor 40 mg HS. Cardiology consulted. Treat UTI Treat medical diseases. OT/PT. Subjective Has a headache again Objective Vital Signs Date Time Temp Pulse Resp B/P (MAP) Pulse Ox O2 Delivery O2 Flow Rate FiO2 05/21/17 10:29 94 133/107 05/21/17 07:55 97.5 18 98 Room Air 97.5 Intake and Output 05/21/17 07:00 Intake Total 790 ml Output Total 250 ml Balance 540 ml Intake Oral 790 ml Output Urine Total 250 ml # Bowel Movements 1 PHYSICAL EXAM Alert. Oriented to time, place and person. PERRL. Anisocoria, 3 mm on right, 2 mm on left EOMI. No nystagmus CN: no focal findings. Muscle tone: normal. Muscle strength: 5/5 DTR: 2+ Plantar: flexor Gait: not examined in bed. Sensory exam: no abnormal findings. No cerebellar signs elicited. Review of Relevant I have reviewed the following items raul (where applicable) has been applied. Labs Laboratory Tests Test 05/20/17 05:25 05/21/17 04:25 White Blood Count 6.4 x10^3/uL (4.0-11.0) 5.8 x10^3/uL (4.0-11.0) Red Blood Count 4.31 x10^6/uL (4.30-5.70) 4.28 x10^6/uL (4.30-5.70) Hemoglobin 11.5 g/dL (13.0-17.5) 11.5 g/dL (13.0-17.5) Hematocrit 36.2 % (39.0-53.0) 35.7 % (39.0-53.0) Mean Corpuscular Volume 84 fL (79-100) 83 fL (79-100) Mean Corpuscular Hemoglobin 27 pg (25-35) 27 pg (25-35) Mean Corpuscular Hemoglobin Concent 32 g/dL (31-37) 32 g/dL (31-37) Red Cell Distribution Width 15.1 % (11.5-14.5) 15.6 % (11.5-14.5) Platelet Count 166 x10^3/uL (140-400) 143 x10^3/uL (140-400) Neutrophils (%) (Auto) 58 % (31-73) 64 % (31-73) Lymphocytes (%) (Auto) 31 % (24-48) 26 % (24-48) Monocytes (%) (Auto) 9 % (0-9) 8 % (0-9) Eosinophils (%) (Auto) 3 % (0-3) 2 % (0-3) Basophils (%) (Auto) 0 % (0-3) 0 % (0-3) Neutrophils # (Auto) 3.7 x10^3uL (1.8-7.7) 3.7 x10^3uL (1.8-7.7) Lymphocytes # (Auto) 2.0 x10^3/uL (1.0-4.8) 1.5 x10^3/uL (1.0-4.8) Monocytes # (Auto) 0.5 x10^3/uL (0.0-1.1) 0.5 x10^3/uL (0.0-1.1) Eosinophils # (Auto) 0.2 x10^3/uL (0.0-0.7) 0.1 x10^3/uL (0.0-0.7) Basophils # (Auto) 0.0 x10^3/uL (0.0-0.2) 0.0 x10^3/uL (0.0-0.2) Sodium Level 144 mmol/L (136-145) 141 mmol/L (136-145) Potassium Level 4.1 mmol/L (3.5-5.1) 4.0 mmol/L (3.5-5.1) Chloride Level 108 mmol/L (98-107) 107 mmol/L (98-107) Carbon Dioxide Level 26 mmol/L (21-32) 24 mmol/L (21-32) Anion Gap 10 (6-14) 10 (6-14) Blood Urea Nitrogen 14 mg/dL (8-26) 17 mg/dL (8-26) Creatinine 0.9 mg/dL (0.7-1.3) 0.8 mg/dL (0.7-1.3) Estimated GFR (Cockcroft-Gault) 101.5 116.3 Glucose Level 128 mg/dL (70-99) 113 mg/dL (70-99) Calcium Level 9.0 mg/dL (8.5-10.1) 9.0 mg/dL (8.5-10.1) Laboratory Tests Test 05/21/17 04:25 White Blood Count 5.8 x10^3/uL (4.0-11.0) Red Blood Count 4.28 x10^6/uL (4.30-5.70) Hemoglobin 11.5 g/dL (13.0-17.5) Hematocrit 35.7 % (39.0-53.0) Mean Corpuscular Volume 83 fL (79-100) Mean Corpuscular Hemoglobin 27 pg (25-35) Mean Corpuscular Hemoglobin Concent 32 g/dL (31-37) Red Cell Distribution Width 15.6 % (11.5-14.5) Platelet Count 143 x10^3/uL (140-400) Neutrophils (%) (Auto) 64 % (31-73) Lymphocytes (%) (Auto) 26 % (24-48) Monocytes (%) (Auto) 8 % (0-9) Eosinophils (%) (Auto) 2 % (0-3) Basophils (%) (Auto) 0 % (0-3) Neutrophils # (Auto) 3.7 x10^3uL (1.8-7.7) Lymphocytes # (Auto) 1.5 x10^3/uL (1.0-4.8) Monocytes # (Auto) 0.5 x10^3/uL (0.0-1.1) Eosinophils # (Auto) 0.1 x10^3/uL (0.0-0.7) Basophils # (Auto) 0.0 x10^3/uL (0.0-0.2) Sodium Level 141 mmol/L (136-145) Potassium Level 4.0 mmol/L (3.5-5.1) Chloride Level 107 mmol/L (98-107) Carbon Dioxide Level 24 mmol/L (21-32) Anion Gap 10 (6-14) Blood Urea Nitrogen 17 mg/dL (8-26) Creatinine 0.8 mg/dL (0.7-1.3) Estimated GFR (Cockcroft-Gault) 116.3 Glucose Level 113 mg/dL (70-99) Calcium Level 9.0 mg/dL (8.5-10.1) Microbiology 05/14/17 Blood Culture - Final, Complete NO GROWTH AFTER 5 DAYS 05/14/17 Urine Culture - Final, Complete 05/14/17 Urine Culture Result 1 (KATHY) - Final, Complete 05/14/17 Antimicrobic Susceptibility - Final, Complete Medications Current Medications Nitroglycerin (Nitrostat) 0.4 mg PRN Q5MIN PRN SL CHEST PAIN; Start 05/14/17 at 14:30 Sodium Chloride 1,000 ml @ 2,520 mls/hr Q24M IV Last administered on 18:02; Start 05/14/17 at 16:13; Stop 05/14/17 at 17:12; Status DC Vancomycin HCl (Vanco Per Pharmacy) 1 each PRN DAILY PRN MC SEE COMMENTS Last administered on 05/15/17 13:26; Start 05/14/17 at 16:15; Stop 05/16/17 at 14:23 ; Status DC Piperacillin Sod/ Tazobactam Sod (Zosyn Per Pharmacy) 1 each PRN DAILY PRN MC SEE COMMENTS; Start 05/14/17 at 16:15; Stop 05/17/17 at 14:20; Status DC Vancomycin HCl 2 gm/Sodium Chloride 500 ml @ 250 mls/hr 1X ONCE IV Last administered on 05/14/17 17:28; Start 05/14/17 at 16:30; Stop 05/14/17 at 18:29 ; Status DC Piperacillin Sod/ Tazobactam Sod 4.5 gm/Sodium Chloride 100 ml @ 200 mls/hr 1X ONCE IV Last administered on 05/14/17 16:45; Start 05/14/17 at 16:30; Stop 05/14/17 at 16:59; Status DC Vancomycin HCl 1.25 gm/Sodium Chloride 250 ml @ 167 mls/hr Q12H IV Last administered on 05/16/17 04:55; Start 05/15/17 at 05:00; Stop 05/16/17 at 14:21 ; Status DC Ondansetron HCl (Zofran) 4 mg 1X ONCE IV Last administered on 05/14/17 18:15 ; Start 05/14/17 at 18:15; Stop 05/14/17 at 18:18; Status DC Ondansetron HCl (Zofran) 4 mg STK-MED ONCE .ROUTE ; Start 05/14/17 at 18:11; Stop 05/14/17 at 18:12; Status DC Ondansetron HCl (Zofran) 4 mg PRN Q8HRS PRN IV NAUSEA/VOMITING; Start 05/14/17 at 18:15; Stop 05/15/17 at 18:14; Status DC Morphine Sulfate 2 mg PRN Q2HR PRN IV PAIN; Start 05/14/17 at 18:15; Stop 05/15 at 18:14; Status DC Vancomycin HCl 1 each 1X ONCE MC ; Start 05/16/17 at 16:30; Stop 05/16/17 at 16 :31; Status Cancel Piperacillin Sod/ Tazobactam Sod 4.5 gm/Sodium Chloride 100 ml @ 200 mls/hr Q6HRS IV Last administered on 05/17/17 06:00; Start 05/14/17 at 23:00; Stop at 08:57; Status DC Albuterol Sulfate (Ventolin Neb Soln) 2.5 mg PRN QID PRN NEB ASTHMA; Start at 19:30 Atorvastatin Calcium (Lipitor) 40 mg QHS PO Last administered on 05/16/17 21: 07; Start 05/14/17 at 21:00; Stop 05/17/17 at 12:43; Status DC Clopidogrel Bisulfate (Plavix) 75 mg DAILYWBKFT PO Last administered on 08:20; Start 05/15/17 at 08:00; Stop 05/16/17 at 11:44; Status DC Furosemide (Lasix) 40 mg DAILY PO Last administered on 05/21/17 10:28; Start 05/15/17 at 09:00 Lisinopril (Prinivil) 2.5 mg DAILY PO Last administered on 05/21/17 10:28; Start 05/15/17 at 09:00 Metoprolol Succinate (Toprol Xl) 25 mg DAILY PO Last administered on 05/17/17 08:15; Start 05/15/17 at 09:00; Stop 05/17/17 at 16:31; Status DC Potassium Chloride (Klor-Con) 10 meq DAILYWBKFT PO Last administered on 08:19; Start 05/15/17 at 08:00; Stop 05/16/17 at 09:53; Status DC Tamsulosin HCl (Flomax) 0.8 mg QHS PO Last administered on 05/20/17 20:12; Start 05/14/17 at 21:00 Acetaminophen (Tylenol) 650 mg PRN Q6HRS PRN PO Headache Last administered on 20:12; Start 05/15/17 at 10:45 Meclizine HCl (Antivert) 12.5 mg TID PO Last administered on 05/21/17 10:28; Start 05/15/17 at 14:00 Gadobutrol (Gadavist) 7.5 mmol 1X ONCE IV Last administered on 05/15/17 18:21 ; Start 05/15/17 at 18:00; Stop 05/15/17 at 18:01; Status DC Potassium Chloride (Klor-Con) 40 meq 1X ONCE PO Last administered on 10:07; Start 05/16/17 at 09:00; Stop 05/16/17 at 09:04; Status DC Magnesium Sulfate/ Dextrose 50 ml @ 25 mls/hr 1X ONCE IV Last administered on 05/16/17 10:06; Start 05/16/17 at 09:00; Stop 05/16/17 at 10:59; Status DC Aspirin (Ecotrin) 81 mg DAILYWBKFT PO Last administered on 05/19/17 10:34; Start 05/16/17 at 09:30; Stop 05/19/17 at 11:33; Status DC Potassium Chloride (Klor-Con) 20 meq DAILYWBKFT PO Last administered on 09:15; Start 05/17/17 at 08:00; Stop 05/18/17 at 12:27; Status DC Potassium Chloride (Klor-Con) 40 meq 1X ONCE PO Last administered on 14:45; Start 05/16/17 at 15:00; Stop 05/16/17 at 15:01; Status DC Magnesium Sulfate/ Dextrose 50 ml @ 25 mls/hr 1X ONCE IV Last administered on 05/16/17 12:23; Start 05/16/17 at 10:30; Stop 05/16/17 at 12:29; Status DC Ondansetron HCl (Zofran) 4 mg PRN Q8HRS PRN IV NAUSEA/VOMITING; Start 05/17/17 at 08:30 Ceftriaxone Sodium 1 gm/ Sodium Chloride 50 ml @ 100 mls/hr Q24H IV Last administered on 05/21/17 10:32; Start 05/17/17 at 10:00 Atorvastatin Calcium (Lipitor) 80 mg QHS PO Last administered on 05/20/17 20: 12; Start 05/17/17 at 21:00 Metoprolol Succinate (Toprol Xl) 50 mg DAILY PO Last administered on 05/21/17 10:29; Start 05/18/17 at 09:00 Potassium Chloride (Klor-Con) 40 meq 1X ONCE PO Last administered on 12:18; Start 05/18/17 at 12:30; Stop 05/18/17 at 12:31; Status DC Clopidogrel Bisulfate (Plavix) 75 mg DAILYWBKFT PO ; Start 05/18/17 at 13:00; Stop 05/19/17 at 11:33; Status DC Potassium Chloride (Klor-Con) 20 meq BIDAFTMEAL PO Last administered on 10:28; Start 05/18/17 at 18:00 Aspirin (Ecotrin) 162 mg DAILYWBKFT PO Last administered on 05/21/17 10:28; Start 05/20/17 at 08:00 Active Scripts Active Klor-Con M10 (Potassium Chloride) 10 Meq Tab.er.prt 10 Meq PO DAILYWBKFT Metoprolol Succinate ( Xl ) (Metoprolol Succinate) 25 Mg Tab.er.24h 25 Mg PO DAILY Lisinopril 2.5 Mg Tablet 2.5 Mg PO DAILY Furosemide 40 Mg Tablet 40 Mg PO DAILY Clopidogrel (Clopidogrel Bisulfate) 75 Mg Tablet 75 Mg PO DAILYWBKFT Reported Albuterol Sulfate Neb Soln (Albuterol Sulfate) 2.5 Mg/3 Ml Vial.neb 2.5 Mg NEB QID PRN Flomax (Tamsulosin Hcl) 0.4 Mg Cap.er.24h 2 Cap PO DAILY Lipitor (Atorvastatin Calcium) 40 Mg Tablet 1 Tab PO QHS Tylenol (Acetaminophen) 325 Mg Tablet 1-2 Tab PO Q6HRS PRN Vitals/I & O Vital Sign - Last 24 Hours 05/20/17 05/20/17 05/20/17 05/20/17 11:00 15:00 19:00 20:00 Temp 96.4 97.4 97.5 96.4 97.4 97.5 Pulse 81 91 91 Resp 20 20 18 B/P (MAP) 149/91 (110) 148/93 (111) 121/87 (98) Pulse Ox 99 98 98 O2 Delivery Room Air Room Air Room Air Room Air 05/20/17 05/21/17 05/21/17 05/21/17 23:46 03:36 07:55 10:28 Temp 98.1 97.5 97.5 98.1 97.5 97.5 Pulse 92 90 94 94 Resp 18 18 18 B/P (MAP) 119/88 (98) 131/94 (106) 133/107 (116) 133/107 Pulse Ox 99 99 98 O2 Delivery Room Air Room Air Room Air 05/21/17 10:29 Pulse 94 B/P (MAP) 133/107 Intake and Output 05/20/17 05/20/17 05/21/17 15:00 23:00 07:00 Intake Total 550 ml 240 ml Output Total 250 ml Balance 300 ml 240 ml KYLE PAGE MD May 21, 2017 10:37
--- NOTE | 2017-05-21 12:16 | PDOC ---
PROGRESS NOTES Chief Complaint Chief Complaint [id number] 1. UTI Klebsiella on IV Rocephin 2. Coronary artery disease with recent LAD stent placement in March 3. Acute/subacute hemorrhage in midline of cerebellums with cerebral edema. 2. Cardiomyopathy 3. COPD 4. HLP 5. Fibromyalgia 6. BPH 7. Diverticulosis History of Present Illness History of Present Illness Still has some dizziness while he was walking restart plavix and aspirin in 2 days DC to [facility], min. sec No headaches No nausea or vomiting No vision problems Vitals Vitals Vital Signs Date Time Temp Pulse Resp B/P (MAP) Pulse Ox O2 Delivery O2 Flow Rate FiO2 05/21/17 10:45 97.5 95 24 124/95 (105) 96 Room Air 97.5 Physical Exam General: Alert, Oriented X3, Cooperative, No acute distress Heart: Regular rate (SR), Normal S1, Normal S2, Other (3/6 systolic murmur to LLS border) Lungs: Clear Abdomen: Soft, No tenderness Extremities: No cyanosis, No edema Skin: No breakdown, No significant lesion Labs LABS Laboratory Tests Test 05/21/17 04:25 White Blood Count 5.8 x10^3/uL (4.0-11.0) Red Blood Count 4.28 x10^6/uL (4.30-5.70) Hemoglobin 11.5 g/dL (13.0-17.5) Hematocrit 35.7 % (39.0-53.0) Mean Corpuscular Volume 83 fL (79-100) Mean Corpuscular Hemoglobin 27 pg (25-35) Mean Corpuscular Hemoglobin Concent 32 g/dL (31-37) Red Cell Distribution Width 15.6 % (11.5-14.5) Platelet Count 143 x10^3/uL (140-400) Neutrophils (%) (Auto) 64 % (31-73) Lymphocytes (%) (Auto) 26 % (24-48) Monocytes (%) (Auto) 8 % (0-9) Eosinophils (%) (Auto) 2 % (0-3) Basophils (%) (Auto) 0 % (0-3) Neutrophils # (Auto) 3.7 x10^3uL (1.8-7.7) Lymphocytes # (Auto) 1.5 x10^3/uL (1.0-4.8) Monocytes # (Auto) 0.5 x10^3/uL (0.0-1.1) Eosinophils # (Auto) 0.1 x10^3/uL (0.0-0.7) Basophils # (Auto) 0.0 x10^3/uL (0.0-0.2) Sodium Level 141 mmol/L (136-145) Potassium Level 4.0 mmol/L (3.5-5.1) Chloride Level 107 mmol/L (98-107) Carbon Dioxide Level 24 mmol/L (21-32) Anion Gap 10 (6-14) Blood Urea Nitrogen 17 mg/dL (8-26) Creatinine 0.8 mg/dL (0.7-1.3) Estimated GFR (Cockcroft-Gault) 116.3 Glucose Level 113 mg/dL (70-99) Calcium Level 9.0 mg/dL (8.5-10.1) Assessment and Plan Assessmemt and Plan Problems Medical Problems: (1) Urinary tract infection Status: Acute Problems: Comment Review of Relevant I have reviewed the following items raul (where applicable) has been applied. Labs Laboratory Tests Test 05/20/17 05:25 05/21/17 04:25 White Blood Count 6.4 x10^3/uL (4.0-11.0) 5.8 x10^3/uL (4.0-11.0) Red Blood Count 4.31 x10^6/uL (4.30-5.70) 4.28 x10^6/uL (4.30-5.70) Hemoglobin 11.5 g/dL (13.0-17.5) 11.5 g/dL (13.0-17.5) Hematocrit 36.2 % (39.0-53.0) 35.7 % (39.0-53.0) Mean Corpuscular Volume 84 fL (79-100) 83 fL (79-100) Mean Corpuscular Hemoglobin 27 pg (25-35) 27 pg (25-35) Mean Corpuscular Hemoglobin Concent 32 g/dL (31-37) 32 g/dL (31-37) Red Cell Distribution Width 15.1 % (11.5-14.5) 15.6 % (11.5-14.5) Platelet Count 166 x10^3/uL (140-400) 143 x10^3/uL (140-400) Neutrophils (%) (Auto) 58 % (31-73) 64 % (31-73) Lymphocytes (%) (Auto) 31 % (24-48) 26 % (24-48) Monocytes (%) (Auto) 9 % (0-9) 8 % (0-9) Eosinophils (%) (Auto) 3 % (0-3) 2 % (0-3) Basophils (%) (Auto) 0 % (0-3) 0 % (0-3) Neutrophils # (Auto) 3.7 x10^3uL (1.8-7.7) 3.7 x10^3uL (1.8-7.7) Lymphocytes # (Auto) 2.0 x10^3/uL (1.0-4.8) 1.5 x10^3/uL (1.0-4.8) Monocytes # (Auto) 0.5 x10^3/uL (0.0-1.1) 0.5 x10^3/uL (0.0-1.1) Eosinophils # (Auto) 0.2 x10^3/uL (0.0-0.7) 0.1 x10^3/uL (0.0-0.7) Basophils # (Auto) 0.0 x10^3/uL (0.0-0.2) 0.0 x10^3/uL (0.0-0.2) Sodium Level 144 mmol/L (136-145) 141 mmol/L (136-145) Potassium Level 4.1 mmol/L (3.5-5.1) 4.0 mmol/L (3.5-5.1) Chloride Level 108 mmol/L (98-107) 107 mmol/L (98-107) Carbon Dioxide Level 26 mmol/L (21-32) 24 mmol/L (21-32) Anion Gap 10 (6-14) 10 (6-14) Blood Urea Nitrogen 14 mg/dL (8-26) 17 mg/dL (8-26) Creatinine 0.9 mg/dL (0.7-1.3) 0.8 mg/dL (0.7-1.3) Estimated GFR (Cockcroft-Gault) 101.5 116.3 Glucose Level 128 mg/dL (70-99) 113 mg/dL (70-99) Calcium Level 9.0 mg/dL (8.5-10.1) 9.0 mg/dL (8.5-10.1) Laboratory Tests Test 05/21/17 04:25 White Blood Count 5.8 x10^3/uL (4.0-11.0) Red Blood Count 4.28 x10^6/uL (4.30-5.70) Hemoglobin 11.5 g/dL (13.0-17.5) Hematocrit 35.7 % (39.0-53.0) Mean Corpuscular Volume 83 fL (79-100) Mean Corpuscular Hemoglobin 27 pg (25-35) Mean Corpuscular Hemoglobin Concent 32 g/dL (31-37) Red Cell Distribution Width 15.6 % (11.5-14.5) Platelet Count 143 x10^3/uL (140-400) Neutrophils (%) (Auto) 64 % (31-73) Lymphocytes (%) (Auto) 26 % (24-48) Monocytes (%) (Auto) 8 % (0-9) Eosinophils (%) (Auto) 2 % (0-3) Basophils (%) (Auto) 0 % (0-3) Neutrophils # (Auto) 3.7 x10^3uL (1.8-7.7) Lymphocytes # (Auto) 1.5 x10^3/uL (1.0-4.8) Monocytes # (Auto) 0.5 x10^3/uL (0.0-1.1) Eosinophils # (Auto) 0.1 x10^3/uL (0.0-0.7) Basophils # (Auto) 0.0 x10^3/uL (0.0-0.2) Sodium Level 141 mmol/L (136-145) Potassium Level 4.0 mmol/L (3.5-5.1) Chloride Level 107 mmol/L (98-107) Carbon Dioxide Level 24 mmol/L (21-32) Anion Gap 10 (6-14) Blood Urea Nitrogen 17 mg/dL (8-26) Creatinine 0.8 mg/dL (0.7-1.3) Estimated GFR (Cockcroft-Gault) 116.3 Glucose Level 113 mg/dL (70-99) Calcium Level 9.0 mg/dL (8.5-10.1) Microbiology 05/14/17 Blood Culture - Final, Complete NO GROWTH AFTER 5 DAYS 05/14/17 Urine Culture - Final, Complete 05/14/17 Urine Culture Result 1 (KATHY) - Final, Complete 05/14/17 Antimicrobic Susceptibility - Final, Complete Medications Current Medications Nitroglycerin (Nitrostat) 0.4 mg PRN Q5MIN PRN SL CHEST PAIN; Start 05/14/17 at 14:30 Sodium Chloride 1,000 ml @ 2,520 mls/hr Q24M IV Last administered on 18:02; Start 05/14/17 at 16:13; Stop 05/14/17 at 17:12; Status DC Vancomycin HCl (Vanco Per Pharmacy) 1 each PRN DAILY PRN MC SEE COMMENTS Last administered on 05/15/17 13:26; Start 05/14/17 at 16:15; Stop 05/16/17 at 14:23 ; Status DC Piperacillin Sod/ Tazobactam Sod (Zosyn Per Pharmacy) 1 each PRN DAILY PRN MC SEE COMMENTS; Start 05/14/17 at 16:15; Stop 05/17/17 at 14:20; Status DC Vancomycin HCl 2 gm/Sodium Chloride 500 ml @ 250 mls/hr 1X ONCE IV Last administered on 05/14/17 17:28; Start 05/14/17 at 16:30; Stop 05/14/17 at 18:29 ; Status DC Piperacillin Sod/ Tazobactam Sod 4.5 gm/Sodium Chloride 100 ml @ 200 mls/hr 1X ONCE IV Last administered on 05/14/17 16:45; Start 05/14/17 at 16:30; Stop 05/14/17 at 16:59; Status DC Vancomycin HCl 1.25 gm/Sodium Chloride 250 ml @ 167 mls/hr Q12H IV Last administered on 05/16/17 04:55; Start 05/15/17 at 05:00; Stop 05/16/17 at 14:21 ; Status DC Ondansetron HCl (Zofran) 4 mg 1X ONCE IV Last administered on 05/14/17 18:15 ; Start 05/14/17 at 18:15; Stop 05/14/17 at 18:18; Status DC Ondansetron HCl (Zofran) 4 mg STK-MED ONCE .ROUTE ; Start 05/14/17 at 18:11; Stop 05/14/17 at 18:12; Status DC Ondansetron HCl (Zofran) 4 mg PRN Q8HRS PRN IV NAUSEA/VOMITING; Start 05/14/17 at 18:15; Stop 05/15/17 at 18:14; Status DC Morphine Sulfate 2 mg PRN Q2HR PRN IV PAIN; Start 05/14/17 at 18:15; Stop 05/15 at 18:14; Status DC Vancomycin HCl 1 each 1X ONCE MC ; Start 05/16/17 at 16:30; Stop 05/16/17 at 16 :31; Status Cancel Piperacillin Sod/ Tazobactam Sod 4.5 gm/Sodium Chloride 100 ml @ 200 mls/hr Q6HRS IV Last administered on 05/17/17 06:00; Start 05/14/17 at 23:00; Stop at 08:57; Status DC Albuterol Sulfate (Ventolin Neb Soln) 2.5 mg PRN QID PRN NEB ASTHMA; Start at 19:30 Atorvastatin Calcium (Lipitor) 40 mg QHS PO Last administered on 05/16/17 21: 07; Start 05/14/17 at 21:00; Stop 05/17/17 at 12:43; Status DC Clopidogrel Bisulfate (Plavix) 75 mg DAILYWBKFT PO Last administered on 08:20; Start 05/15/17 at 08:00; Stop 05/16/17 at 11:44; Status DC Furosemide (Lasix) 40 mg DAILY PO Last administered on 05/21/17 10:28; Start 05/15/17 at 09:00 Lisinopril (Prinivil) 2.5 mg DAILY PO Last administered on 05/21/17 10:28; Start 05/15/17 at 09:00 Metoprolol Succinate (Toprol Xl) 25 mg DAILY PO Last administered on 05/17/17 08:15; Start 05/15/17 at 09:00; Stop 05/17/17 at 16:31; Status DC Potassium Chloride (Klor-Con) 10 meq DAILYWBKFT PO Last administered on 08:19; Start 05/15/17 at 08:00; Stop 05/16/17 at 09:53; Status DC Tamsulosin HCl (Flomax) 0.8 mg QHS PO Last administered on 05/20/17 20:12; Start 05/14/17 at 21:00 Acetaminophen (Tylenol) 650 mg PRN Q6HRS PRN PO Headache Last administered on 20:12; Start 05/15/17 at 10:45 Meclizine HCl (Antivert) 12.5 mg TID PO Last administered on 05/21/17 10:28; Start 05/15/17 at 14:00 Gadobutrol (Gadavist) 7.5 mmol 1X ONCE IV Last administered on 05/15/17 18:21 ; Start 05/15/17 at 18:00; Stop 05/15/17 at 18:01; Status DC Potassium Chloride (Klor-Con) 40 meq 1X ONCE PO Last administered on 10:07; Start 05/16/17 at 09:00; Stop 05/16/17 at 09:04; Status DC Magnesium Sulfate/ Dextrose 50 ml @ 25 mls/hr 1X ONCE IV Last administered on 05/16/17 10:06; Start 05/16/17 at 09:00; Stop 05/16/17 at 10:59; Status DC Aspirin (Ecotrin) 81 mg DAILYWBKFT PO Last administered on 05/19/17 10:34; Start 05/16/17 at 09:30; Stop 05/19/17 at 11:33; Status DC Potassium Chloride (Klor-Con) 20 meq DAILYWBKFT PO Last administered on 09:15; Start 05/17/17 at 08:00; Stop 05/18/17 at 12:27; Status DC Potassium Chloride (Klor-Con) 40 meq 1X ONCE PO Last administered on 14:45; Start 05/16/17 at 15:00; Stop 05/16/17 at 15:01; Status DC Magnesium Sulfate/ Dextrose 50 ml @ 25 mls/hr 1X ONCE IV Last administered on 05/16/17 12:23; Start 05/16/17 at 10:30; Stop 05/16/17 at 12:29; Status DC Ondansetron HCl (Zofran) 4 mg PRN Q8HRS PRN IV NAUSEA/VOMITING; Start 05/17/17 at 08:30 Ceftriaxone Sodium 1 gm/ Sodium Chloride 50 ml @ 100 mls/hr Q24H IV Last administered on 05/21/17 10:32; Start 05/17/17 at 10:00 Atorvastatin Calcium (Lipitor) 80 mg QHS PO Last administered on 05/20/17 20: 12; Start 05/17/17 at 21:00 Metoprolol Succinate (Toprol Xl) 50 mg DAILY PO Last administered on 05/21/17 10:29; Start 05/18/17 at 09:00 Potassium Chloride (Klor-Con) 40 meq 1X ONCE PO Last administered on 12:18; Start 05/18/17 at 12:30; Stop 05/18/17 at 12:31; Status DC Clopidogrel Bisulfate (Plavix) 75 mg DAILYWBKFT PO ; Start 05/18/17 at 13:00; Stop 05/19/17 at 11:33; Status DC Potassium Chloride (Klor-Con) 20 meq BIDAFTMEAL PO Last administered on 10:28; Start 05/18/17 at 18:00 Aspirin (Ecotrin) 162 mg DAILYWBKFT PO Last administered on 05/21/17 10:28; Start 05/20/17 at 08:00 Active Scripts Active Klor-Con M10 (Potassium Chloride) 10 Meq Tab.er.prt 10 Meq PO DAILYWBKFT Metoprolol Succinate ( Xl ) (Metoprolol Succinate) 25 Mg Tab.er.24h 25 Mg PO DAILY Lisinopril 2.5 Mg Tablet 2.5 Mg PO DAILY Furosemide 40 Mg Tablet 40 Mg PO DAILY Clopidogrel (Clopidogrel Bisulfate) 75 Mg Tablet 75 Mg PO DAILYWBKFT Reported Albuterol Sulfate Neb Soln (Albuterol Sulfate) 2.5 Mg/3 Ml Vial.neb 2.5 Mg NEB QID PRN Flomax (Tamsulosin Hcl) 0.4 Mg Cap.er.24h 2 Cap PO DAILY Lipitor (Atorvastatin Calcium) 40 Mg Tablet 1 Tab PO QHS Tylenol (Acetaminophen) 325 Mg Tablet 1-2 Tab PO Q6HRS PRN Vitals/I & O Vital Sign - Last 24 Hours 05/20/17 05/20/17 05/20/17 05/20/17 15:00 19:00 20:00 23:46 Temp 97.4 97.5 98.1 97.4 97.5 98.1 Pulse 91 91 92 Resp 20 18 18 B/P (MAP) 148/93 (111) 121/87 (98) 119/88 (98) Pulse Ox 98 98 99 O2 Delivery Room Air Room Air Room Air Room Air 05/21/17 05/21/17 05/21/17 05/21/17 03:36 07:55 10:28 10:29 Temp 97.5 97.5 97.5 97.5 Pulse 90 94 94 94 Resp 18 18 B/P (MAP) 131/94 (106) 133/107 (116) 133/107 133/107 Pulse Ox 99 98 O2 Delivery Room Air Room Air 05/21/17 10:45 Temp 97.5 97.5 Pulse 95 Resp 24 B/P (MAP) 124/95 (105) Pulse Ox 96 O2 Delivery Room Air Intake and Output 05/20/17 05/20/17 05/21/17 15:00 23:00 07:00 Intake Total 550 ml 240 ml Output Total 250 ml Balance 300 ml 240 ml BHAVANI BLAS MD May 21, 2017 12:16
--- NOTE | 2017-05-21 15:27 | RAD ---
CT of the head without contrast, 05/21/2017: History: Follow-up intracranial hemorrhage, increasing headache There is a midline mass of increased density compatible with cerebellar hemorrhage. It measures approximately 2.5 x 3.0 cm. It is of similar size when compared to the exam of 05/18/2017. Adjacent edema appears to have worsened slightly. The fourth ventricle is effaced. The third ventricle and both lateral ventricles have increased slightly in size in the interval. No new intracranial hemorrhage is seen. IMPRESSION: 1. Slight interval increase of the edema related to the midline cerebellar hemorrhage. 2. Slight interval increase in size of the lateral and third ventricles compatible with partial obstruction at the fourth ventricle level. PQRS Compliance Statement: One or more of the following individualized dose reduction techniques were utilized for this examination: 1. Automated exposure control 2. Adjustment of the mA and/or kV according to patient size 3. Use of iterative reconstruction technique
[2017-05-21] MEDS: ACETAMINOPHEN 325 MG TABLET. PO PRN (16:55)
[2017-05-21] MEDS: ATORVASTATIN CALCIUM 40 MG TABLET. PO SCH (21:28)
[2017-05-21] MEDS: TAMSULOSIN 0.4 MG CAP.ER.24H. PO SCH (21:30)
[2017-05-22] VITALS (13 sets, daily range): BP systolic 83–129; BP diastolic 50–101
[2017-05-22] MEDS: ACETAMINOPHEN 325 MG TABLET. PO PRN ×3 (04:09→20:34)
[2017-05-22 05:39] LABS: BASO % 0 % (0-3); EOS % 2 % (0-3); HEMATOCRIT 38.2 % (39.0-53.0); HEMOGLOBIN 12.6 g/dL (13.0-17.5); LYMPH # 1.5 x10^3/uL (1.0-4.8); LYMPH % 26 % (24-48); MEAN CORPUSCULAR HEMOGLOBIN 27 pg (25-35); MEAN CORPUSCULAR HGB CONC 33 g/dL (31-37); MEAN CORPUSCULAR VOLUME 83 fL (79-100); MONO % 9 % (0-9); NEUT % 63 % (31-73); PLATELET COUNT 152 x10^3/uL (140-400); RED CELL DISTRIBUTION WIDTH 15.7 % (11.5-14.5)
[2017-05-22 06:06] LABS: CALCIUM 8.4 mg/dL (8.5-10.1); CREATININE 0.8 mg/dL (0.7-1.3); GFR 116.3; POTASSIUM 4.1 mmol/L (3.5-5.1)
--- NOTE | 2017-05-22 08:48 | PDOC2 ---
CONSULT Date of Consult Date of Consult DATE: 05/22/17 TIME: 06:43 Reason for Consult Reason for Consult: cerebellar hemorrhage, concern for hydrocephalus Identification/Chief Complaint Chief Complaint 66M with headache, cerebellar hemorrhage Problems: History of Present Illness Reason for Visit: 66M who sustained spontaneous cerebellar hemorrhage recently. He developed increased headache yesterday. A repeat CT was ordered showing stable hemorrhage midline posterior fossa but with some increased edema and mildly increased ventricle size. Transferred to ICU for close monitoring of exam. Headache improved today. Denies nausea/vomiting/visual changes. Reports gait disturbance since event. Denies focal weakness or other changes. Past Medical History Cardiovascular: Hyperlipidemia Pulmonary: COPD CENTRAL NERVOUS SYSTEM: Other GI: Diverticulosis, Other Heme/Onc: No pertinent hx Hepatobiliary: No pertinent hx Psych: No pertinent hx Musculoskeletal: No pain Rheumatologic: Fibromyalgia Infectious disease: No pertinent hx Renal/: Benign prostatic enlarg. Endocrine: No pertinent hx Past Surgical History Past Surgical History: Other Family History Family History: Family History Unknown Social History ALCOHOL: none Drugs: Other Lives: Roommate Current Problem List Problem List Problems Medical Problems: (1) Urinary tract infection Status: Acute Current Medications Current Medications Current Medications Nitroglycerin (Nitrostat) 0.4 mg PRN Q5MIN PRN SL CHEST PAIN; Start 05/14/17 at 14:30 Sodium Chloride 1,000 ml @ 2,520 mls/hr Q24M IV Last administered on 18:02; Start 05/14/17 at 16:13; Stop 05/14/17 at 17:12; Status DC Vancomycin HCl (Vanco Per Pharmacy) 1 each PRN DAILY PRN MC SEE COMMENTS Last administered on 05/15/17 13:26; Start 05/14/17 at 16:15; Stop 05/16/17 at 14:23 ; Status DC Piperacillin Sod/ Tazobactam Sod (Zosyn Per Pharmacy) 1 each PRN DAILY PRN MC SEE COMMENTS; Start 05/14/17 at 16:15; Stop 05/17/17 at 14:20; Status DC Vancomycin HCl 2 gm/Sodium Chloride 500 ml @ 250 mls/hr 1X ONCE IV Last administered on 05/14/17 17:28; Start 05/14/17 at 16:30; Stop 05/14/17 at 18:29 ; Status DC Piperacillin Sod/ Tazobactam Sod 4.5 gm/Sodium Chloride 100 ml @ 200 mls/hr 1X ONCE IV Last administered on 05/14/17 16:45; Start 05/14/17 at 16:30; Stop 05/14/17 at 16:59; Status DC Vancomycin HCl 1.25 gm/Sodium Chloride 250 ml @ 167 mls/hr Q12H IV Last administered on 05/16/17 04:55; Start 05/15/17 at 05:00; Stop 05/16/17 at 14:21 ; Status DC Ondansetron HCl (Zofran) 4 mg 1X ONCE IV Last administered on 05/14/17 18:15 ; Start 05/14/17 at 18:15; Stop 05/14/17 at 18:18; Status DC Ondansetron HCl (Zofran) 4 mg STK-MED ONCE .ROUTE ; Start 05/14/17 at 18:11; Stop 05/14/17 at 18:12; Status DC Ondansetron HCl (Zofran) 4 mg PRN Q8HRS PRN IV NAUSEA/VOMITING; Start 05/14/17 at 18:15; Stop 05/15/17 at 18:14; Status DC Morphine Sulfate 2 mg PRN Q2HR PRN IV PAIN; Start 05/14/17 at 18:15; Stop 05/15 at 18:14; Status DC Vancomycin HCl 1 each 1X ONCE MC ; Start 05/16/17 at 16:30; Stop 05/16/17 at 16 :31; Status Cancel Piperacillin Sod/ Tazobactam Sod 4.5 gm/Sodium Chloride 100 ml @ 200 mls/hr Q6HRS IV Last administered on 05/17/17 06:00; Start 05/14/17 at 23:00; Stop at 08:57; Status DC Albuterol Sulfate (Ventolin Neb Soln) 2.5 mg PRN QID PRN NEB ASTHMA; Start at 19:30 Atorvastatin Calcium (Lipitor) 40 mg QHS PO Last administered on 05/16/17 21: 07; Start 05/14/17 at 21:00; Stop 05/17/17 at 12:43; Status DC Clopidogrel Bisulfate (Plavix) 75 mg DAILYWBKFT PO Last administered on 08:20; Start 05/15/17 at 08:00; Stop 05/16/17 at 11:44; Status DC Furosemide (Lasix) 40 mg DAILY PO Last administered on 05/21/17 10:28; Start 05/15/17 at 09:00 Lisinopril (Prinivil) 2.5 mg DAILY PO Last administered on 05/21/17 10:28; Start 05/15/17 at 09:00 Metoprolol Succinate (Toprol Xl) 25 mg DAILY PO Last administered on 05/17/17 08:15; Start 05/15/17 at 09:00; Stop 05/17/17 at 16:31; Status DC Potassium Chloride (Klor-Con) 10 meq DAILYWBKFT PO Last administered on 08:19; Start 05/15/17 at 08:00; Stop 05/16/17 at 09:53; Status DC Tamsulosin HCl (Flomax) 0.8 mg QHS PO Last administered on 05/21/17 21:30; Start 05/14/17 at 21:00 Acetaminophen (Tylenol) 650 mg PRN Q6HRS PRN PO Headache Last administered on 04:09; Start 05/15/17 at 10:45 Meclizine HCl (Antivert) 12.5 mg TID PO Last administered on 05/21/17 21:28; Start 05/15/17 at 14:00 Gadobutrol (Gadavist) 7.5 mmol 1X ONCE IV Last administered on 05/15/17 18:21 ; Start 05/15/17 at 18:00; Stop 05/15/17 at 18:01; Status DC Potassium Chloride (Klor-Con) 40 meq 1X ONCE PO Last administered on 10:07; Start 05/16/17 at 09:00; Stop 05/16/17 at 09:04; Status DC Magnesium Sulfate/ Dextrose 50 ml @ 25 mls/hr 1X ONCE IV Last administered on 05/16/17 10:06; Start 05/16/17 at 09:00; Stop 05/16/17 at 10:59; Status DC Aspirin (Ecotrin) 81 mg DAILYWBKFT PO Last administered on 05/19/17 10:34; Start 05/16/17 at 09:30; Stop 05/19/17 at 11:33; Status DC Potassium Chloride (Klor-Con) 20 meq DAILYWBKFT PO Last administered on 09:15; Start 05/17/17 at 08:00; Stop 05/18/17 at 12:27; Status DC Potassium Chloride (Klor-Con) 40 meq 1X ONCE PO Last administered on 14:45; Start 05/16/17 at 15:00; Stop 05/16/17 at 15:01; Status DC Magnesium Sulfate/ Dextrose 50 ml @ 25 mls/hr 1X ONCE IV Last administered on 05/16/17 12:23; Start 05/16/17 at 10:30; Stop 05/16/17 at 12:29; Status DC Ondansetron HCl (Zofran) 4 mg PRN Q8HRS PRN IV NAUSEA/VOMITING; Start 05/17/17 at 08:30 Ceftriaxone Sodium 1 gm/ Sodium Chloride 50 ml @ 100 mls/hr Q24H IV Last administered on 05/21/17 10:32; Start 05/17/17 at 10:00 Atorvastatin Calcium (Lipitor) 80 mg QHS PO Last administered on 05/21/17 21: 28; Start 05/17/17 at 21:00 Metoprolol Succinate (Toprol Xl) 50 mg DAILY PO Last administered on 05/21/17 10:29; Start 05/18/17 at 09:00 Potassium Chloride (Klor-Con) 40 meq 1X ONCE PO Last administered on 12:18; Start 05/18/17 at 12:30; Stop 05/18/17 at 12:31; Status DC Clopidogrel Bisulfate (Plavix) 75 mg DAILYWBKFT PO ; Start 05/18/17 at 13:00; Stop 05/19/17 at 11:33; Status DC Potassium Chloride (Klor-Con) 20 meq BIDAFTMEAL PO Last administered on 16:55; Start 05/18/17 at 18:00 Aspirin (Ecotrin) 162 mg DAILYWBKFT PO Last administered on 05/21/17 10:28; Start 05/20/17 at 08:00 Active Scripts Active Klor-Con M10 (Potassium Chloride) 10 Meq Tab.er.prt 10 Meq PO DAILYWBKFT Metoprolol Succinate ( Xl ) (Metoprolol Succinate) 25 Mg Tab.er.24h 25 Mg PO DAILY Lisinopril 2.5 Mg Tablet 2.5 Mg PO DAILY Furosemide 40 Mg Tablet 40 Mg PO DAILY Clopidogrel (Clopidogrel Bisulfate) 75 Mg Tablet 75 Mg PO DAILYWBKFT Reported Albuterol Sulfate Neb Soln (Albuterol Sulfate) 2.5 Mg/3 Ml Vial.neb 2.5 Mg NEB QID PRN Flomax (Tamsulosin Hcl) 0.4 Mg Cap.er.24h 2 Cap PO DAILY Lipitor (Atorvastatin Calcium) 40 Mg Tablet 1 Tab PO QHS Tylenol (Acetaminophen) 325 Mg Tablet 1-2 Tab PO Q6HRS PRN Allergies Allergies: Coded Allergies: No Known Drug Allergies (Unverified , 04/24/17) Vitals VITALS Vital Signs Date Time Temp Pulse Resp B/P (MAP) Pulse Ox O2 Delivery O2 Flow Rate FiO2 05/22/17 06:00 81 14 83/50 (61) 92 Room Air 05/22/17 04:00 97.6 97.6 Labs Labs Laboratory Tests Test 05/21/17 04:25 05/22/17 05:00 White Blood Count 5.8 x10^3/uL (4.0-11.0) 6.0 x10^3/uL (4.0-11.0) Red Blood Count 4.28 x10^6/uL (4.30-5.70) 4.60 x10^6/uL (4.30-5.70) Hemoglobin 11.5 g/dL (13.0-17.5) 12.6 g/dL (13.0-17.5) Hematocrit 35.7 % (39.0-53.0) 38.2 % (39.0-53.0) Mean Corpuscular Volume 83 fL (79-100) 83 fL (79-100) Mean Corpuscular Hemoglobin 27 pg (25-35) 27 pg (25-35) Mean Corpuscular Hemoglobin Concent 32 g/dL (31-37) 33 g/dL (31-37) Red Cell Distribution Width 15.6 % (11.5-14.5) 15.7 % (11.5-14.5) Platelet Count 143 x10^3/uL (140-400) 152 x10^3/uL (140-400) Neutrophils (%) (Auto) 64 % (31-73) 63 % (31-73) Lymphocytes (%) (Auto) 26 % (24-48) 26 % (24-48) Monocytes (%) (Auto) 8 % (0-9) 9 % (0-9) Eosinophils (%) (Auto) 2 % (0-3) 2 % (0-3) Basophils (%) (Auto) 0 % (0-3) 0 % (0-3) Neutrophils # (Auto) 3.7 x10^3uL (1.8-7.7) 3.7 x10^3uL (1.8-7.7) Lymphocytes # (Auto) 1.5 x10^3/uL (1.0-4.8) 1.5 x10^3/uL (1.0-4.8) Monocytes # (Auto) 0.5 x10^3/uL (0.0-1.1) 0.5 x10^3/uL (0.0-1.1) Eosinophils # (Auto) 0.1 x10^3/uL (0.0-0.7) 0.1 x10^3/uL (0.0-0.7) Basophils # (Auto) 0.0 x10^3/uL (0.0-0.2) 0.0 x10^3/uL (0.0-0.2) Sodium Level 141 mmol/L (136-145) 143 mmol/L (136-145) Potassium Level 4.0 mmol/L (3.5-5.1) 4.1 mmol/L (3.5-5.1) Chloride Level 107 mmol/L (98-107) 107 mmol/L (98-107) Carbon Dioxide Level 24 mmol/L (21-32) 26 mmol/L (21-32) Anion Gap 10 (6-14) 10 (6-14) Blood Urea Nitrogen 17 mg/dL (8-26) 17 mg/dL (8-26) Creatinine 0.8 mg/dL (0.7-1.3) 0.8 mg/dL (0.7-1.3) Estimated GFR (Cockcroft-Gault) 116.3 116.3 Glucose Level 113 mg/dL (70-99) 154 mg/dL (70-99) Calcium Level 9.0 mg/dL (8.5-10.1) 8.4 mg/dL (8.5-10.1) Laboratory Tests Test 05/22/17 05:00 White Blood Count 6.0 x10^3/uL (4.0-11.0) Red Blood Count 4.60 x10^6/uL (4.30-5.70) Hemoglobin 12.6 g/dL (13.0-17.5) Hematocrit 38.2 % (39.0-53.0) Mean Corpuscular Volume 83 fL (79-100) Mean Corpuscular Hemoglobin 27 pg (25-35) Mean Corpuscular Hemoglobin Concent 33 g/dL (31-37) Red Cell Distribution Width 15.7 % (11.5-14.5) Platelet Count 152 x10^3/uL (140-400) Neutrophils (%) (Auto) 63 % (31-73) Lymphocytes (%) (Auto) 26 % (24-48) Monocytes (%) (Auto) 9 % (0-9) Eosinophils (%) (Auto) 2 % (0-3) Basophils (%) (Auto) 0 % (0-3) Neutrophils # (Auto) 3.7 x10^3uL (1.8-7.7) Lymphocytes # (Auto) 1.5 x10^3/uL (1.0-4.8) Monocytes # (Auto) 0.5 x10^3/uL (0.0-1.1) Eosinophils # (Auto) 0.1 x10^3/uL (0.0-0.7) Basophils # (Auto) 0.0 x10^3/uL (0.0-0.2) Sodium Level 143 mmol/L (136-145) Potassium Level 4.1 mmol/L (3.5-5.1) Chloride Level 107 mmol/L (98-107) Carbon Dioxide Level 26 mmol/L (21-32) Anion Gap 10 (6-14) Blood Urea Nitrogen 17 mg/dL (8-26) Creatinine 0.8 mg/dL (0.7-1.3) Estimated GFR (Cockcroft-Gault) 116.3 Glucose Level 154 mg/dL (70-99) Calcium Level 8.4 mg/dL (8.5-10.1) Assessment/Plan Assessment/Plan 66M with cerebellar hemorrhage, edema, some increased ventricle size -mild headache improved this AM -neurologically stable at this time -review repeat CT when complete -may be able to downgrade from ICU if continues to be neurologically and radiographically stable -follow closely for any decline NÁGEL CAGLE MD May 22, 2017 08:48
[2017-05-22] MEDS: METOPROLOL SUCC 24HR ER 50 MG TAB.ER.24H. PO SCH (09:00)
--- NOTE | 2017-05-22 10:47 | PDOC ---
PROGRESS NOTES Assessment Problems Medical Problems: (1) Urinary tract infection Status: Acute Acute/subacute hemorrhage in midline of cerebellums with cerebral edema. Right eye vision disturbance, dizziness x 1 day before admission. Intermittent headaches. Generalized weakness. Plan Repeat head CT today, per neurosurgery Holding Plavix. Continue Lipitor 40 mg HS. Treat UTI Treat medical diseases. Subjective Still has intermittent mild headache treated successfully with Tylenol Objective Vital Signs Date Time Temp Pulse Resp B/P (MAP) Pulse Ox O2 Delivery O2 Flow Rate FiO2 05/22/17 06:00 81 14 83/50 (61) 92 Room Air 05/22/17 04:00 97.6 97.6 Intake and Output 05/22/17 07:00 Intake Total 240 ml Output Total 845 ml Balance -605 ml Intake Oral 240 ml Output Urine Total 845 ml # Voids 5 # Bowel Movements 1 PHYSICAL EXAM Alert. Oriented to time, place and person. PERRL. Anisocoria, 3 mm on right, 2 mm on left EOMI. No nystagmus CN: no focal findings. Muscle tone: normal. Muscle strength: 5/5 DTR: 2+ Plantar: flexor Gait: not examined in bed. Sensory exam: no abnormal findings. Cerebellar: Mild bilateral dysmetria on [id number]. Review of Relevant I have reviewed the following items raul (where applicable) has been applied. Labs Laboratory Tests Test 05/21/17 04:25 05/22/17 05:00 White Blood Count 5.8 x10^3/uL (4.0-11.0) 6.0 x10^3/uL (4.0-11.0) Red Blood Count 4.28 x10^6/uL (4.30-5.70) 4.60 x10^6/uL (4.30-5.70) Hemoglobin 11.5 g/dL (13.0-17.5) 12.6 g/dL (13.0-17.5) Hematocrit 35.7 % (39.0-53.0) 38.2 % (39.0-53.0) Mean Corpuscular Volume 83 fL (79-100) 83 fL (79-100) Mean Corpuscular Hemoglobin 27 pg (25-35) 27 pg (25-35) Mean Corpuscular Hemoglobin Concent 32 g/dL (31-37) 33 g/dL (31-37) Red Cell Distribution Width 15.6 % (11.5-14.5) 15.7 % (11.5-14.5) Platelet Count 143 x10^3/uL (140-400) 152 x10^3/uL (140-400) Neutrophils (%) (Auto) 64 % (31-73) 63 % (31-73) Lymphocytes (%) (Auto) 26 % (24-48) 26 % (24-48) Monocytes (%) (Auto) 8 % (0-9) 9 % (0-9) Eosinophils (%) (Auto) 2 % (0-3) 2 % (0-3) Basophils (%) (Auto) 0 % (0-3) 0 % (0-3) Neutrophils # (Auto) 3.7 x10^3uL (1.8-7.7) 3.7 x10^3uL (1.8-7.7) Lymphocytes # (Auto) 1.5 x10^3/uL (1.0-4.8) 1.5 x10^3/uL (1.0-4.8) Monocytes # (Auto) 0.5 x10^3/uL (0.0-1.1) 0.5 x10^3/uL (0.0-1.1) Eosinophils # (Auto) 0.1 x10^3/uL (0.0-0.7) 0.1 x10^3/uL (0.0-0.7) Basophils # (Auto) 0.0 x10^3/uL (0.0-0.2) 0.0 x10^3/uL (0.0-0.2) Sodium Level 141 mmol/L (136-145) 143 mmol/L (136-145) Potassium Level 4.0 mmol/L (3.5-5.1) 4.1 mmol/L (3.5-5.1) Chloride Level 107 mmol/L (98-107) 107 mmol/L (98-107) Carbon Dioxide Level 24 mmol/L (21-32) 26 mmol/L (21-32) Anion Gap 10 (6-14) 10 (6-14) Blood Urea Nitrogen 17 mg/dL (8-26) 17 mg/dL (8-26) Creatinine 0.8 mg/dL (0.7-1.3) 0.8 mg/dL (0.7-1.3) Estimated GFR (Cockcroft-Gault) 116.3 116.3 Glucose Level 113 mg/dL (70-99) 154 mg/dL (70-99) Calcium Level 9.0 mg/dL (8.5-10.1) 8.4 mg/dL (8.5-10.1) Laboratory Tests Test 05/22/17 05:00 White Blood Count 6.0 x10^3/uL (4.0-11.0) Red Blood Count 4.60 x10^6/uL (4.30-5.70) Hemoglobin 12.6 g/dL (13.0-17.5) Hematocrit 38.2 % (39.0-53.0) Mean Corpuscular Volume 83 fL (79-100) Mean Corpuscular Hemoglobin 27 pg (25-35) Mean Corpuscular Hemoglobin Concent 33 g/dL (31-37) Red Cell Distribution Width 15.7 % (11.5-14.5) Platelet Count 152 x10^3/uL (140-400) Neutrophils (%) (Auto) 63 % (31-73) Lymphocytes (%) (Auto) 26 % (24-48) Monocytes (%) (Auto) 9 % (0-9) Eosinophils (%) (Auto) 2 % (0-3) Basophils (%) (Auto) 0 % (0-3) Neutrophils # (Auto) 3.7 x10^3uL (1.8-7.7) Lymphocytes # (Auto) 1.5 x10^3/uL (1.0-4.8) Monocytes # (Auto) 0.5 x10^3/uL (0.0-1.1) Eosinophils # (Auto) 0.1 x10^3/uL (0.0-0.7) Basophils # (Auto) 0.0 x10^3/uL (0.0-0.2) Sodium Level 143 mmol/L (136-145) Potassium Level 4.1 mmol/L (3.5-5.1) Chloride Level 107 mmol/L (98-107) Carbon Dioxide Level 26 mmol/L (21-32) Anion Gap 10 (6-14) Blood Urea Nitrogen 17 mg/dL (8-26) Creatinine 0.8 mg/dL (0.7-1.3) Estimated GFR (Cockcroft-Gault) 116.3 Glucose Level 154 mg/dL (70-99) Calcium Level 8.4 mg/dL (8.5-10.1) Microbiology 05/14/17 Blood Culture - Final, Complete NO GROWTH AFTER 5 DAYS 05/14/17 Urine Culture - Final, Complete 05/14/17 Urine Culture Result 1 (KATHY) - Final, Complete 05/14/17 Antimicrobic Susceptibility - Final, Complete Medications Current Medications Nitroglycerin (Nitrostat) 0.4 mg PRN Q5MIN PRN SL CHEST PAIN; Start 05/14/17 at 14:30 Sodium Chloride 1,000 ml @ 2,520 mls/hr Q24M IV Last administered on 18:02; Start 05/14/17 at 16:13; Stop 05/14/17 at 17:12; Status DC Vancomycin HCl (Vanco Per Pharmacy) 1 each PRN DAILY PRN MC SEE COMMENTS Last administered on 05/15/17 13:26; Start 05/14/17 at 16:15; Stop 05/16/17 at 14:23 ; Status DC Piperacillin Sod/ Tazobactam Sod (Zosyn Per Pharmacy) 1 each PRN DAILY PRN MC SEE COMMENTS; Start 05/14/17 at 16:15; Stop 05/17/17 at 14:20; Status DC Vancomycin HCl 2 gm/Sodium Chloride 500 ml @ 250 mls/hr 1X ONCE IV Last administered on 05/14/17 17:28; Start 05/14/17 at 16:30; Stop 05/14/17 at 18:29 ; Status DC Piperacillin Sod/ Tazobactam Sod 4.5 gm/Sodium Chloride 100 ml @ 200 mls/hr 1X ONCE IV Last administered on 05/14/17 16:45; Start 05/14/17 at 16:30; Stop 05/14/17 at 16:59; Status DC Vancomycin HCl 1.25 gm/Sodium Chloride 250 ml @ 167 mls/hr Q12H IV Last administered on 05/16/17 04:55; Start 05/15/17 at 05:00; Stop 05/16/17 at 14:21 ; Status DC Ondansetron HCl (Zofran) 4 mg 1X ONCE IV Last administered on 05/14/17 18:15 ; Start 05/14/17 at 18:15; Stop 05/14/17 at 18:18; Status DC Ondansetron HCl (Zofran) 4 mg STK-MED ONCE .ROUTE ; Start 05/14/17 at 18:11; Stop 05/14/17 at 18:12; Status DC Ondansetron HCl (Zofran) 4 mg PRN Q8HRS PRN IV NAUSEA/VOMITING; Start 05/14/17 at 18:15; Stop 05/15/17 at 18:14; Status DC Morphine Sulfate 2 mg PRN Q2HR PRN IV PAIN; Start 05/14/17 at 18:15; Stop 05/15 at 18:14; Status DC Vancomycin HCl 1 each 1X ONCE MC ; Start 05/16/17 at 16:30; Stop 05/16/17 at 16 :31; Status Cancel Piperacillin Sod/ Tazobactam Sod 4.5 gm/Sodium Chloride 100 ml @ 200 mls/hr Q6HRS IV Last administered on 05/17/17 06:00; Start 05/14/17 at 23:00; Stop at 08:57; Status DC Albuterol Sulfate (Ventolin Neb Soln) 2.5 mg PRN QID PRN NEB ASTHMA; Start at 19:30 Atorvastatin Calcium (Lipitor) 40 mg QHS PO Last administered on 05/16/17 21: 07; Start 05/14/17 at 21:00; Stop 05/17/17 at 12:43; Status DC Clopidogrel Bisulfate (Plavix) 75 mg DAILYWBKFT PO Last administered on 08:20; Start 05/15/17 at 08:00; Stop 05/16/17 at 11:44; Status DC Furosemide (Lasix) 40 mg DAILY PO Last administered on 05/21/17 10:28; Start 05/15/17 at 09:00 Lisinopril (Prinivil) 2.5 mg DAILY PO Last administered on 05/21/17 10:28; Start 05/15/17 at 09:00 Metoprolol Succinate (Toprol Xl) 25 mg DAILY PO Last administered on 05/17/17 08:15; Start 05/15/17 at 09:00; Stop 05/17/17 at 16:31; Status DC Potassium Chloride (Klor-Con) 10 meq DAILYWBKFT PO Last administered on 08:19; Start 05/15/17 at 08:00; Stop 05/16/17 at 09:53; Status DC Tamsulosin HCl (Flomax) 0.8 mg QHS PO Last administered on 05/21/17 21:30; Start 05/14/17 at 21:00 Acetaminophen (Tylenol) 650 mg PRN Q6HRS PRN PO Headache Last administered on 04:09; Start 05/15/17 at 10:45 Meclizine HCl (Antivert) 12.5 mg TID PO Last administered on 05/21/17 21:28; Start 05/15/17 at 14:00 Gadobutrol (Gadavist) 7.5 mmol 1X ONCE IV Last administered on 05/15/17 18:21 ; Start 05/15/17 at 18:00; Stop 05/15/17 at 18:01; Status DC Potassium Chloride (Klor-Con) 40 meq 1X ONCE PO Last administered on 10:07; Start 05/16/17 at 09:00; Stop 05/16/17 at 09:04; Status DC Magnesium Sulfate/ Dextrose 50 ml @ 25 mls/hr 1X ONCE IV Last administered on 05/16/17 10:06; Start 05/16/17 at 09:00; Stop 05/16/17 at 10:59; Status DC Aspirin (Ecotrin) 81 mg DAILYWBKFT PO Last administered on 05/19/17 10:34; Start 05/16/17 at 09:30; Stop 05/19/17 at 11:33; Status DC Potassium Chloride (Klor-Con) 20 meq DAILYWBKFT PO Last administered on 09:15; Start 05/17/17 at 08:00; Stop 05/18/17 at 12:27; Status DC Potassium Chloride (Klor-Con) 40 meq 1X ONCE PO Last administered on 14:45; Start 05/16/17 at 15:00; Stop 05/16/17 at 15:01; Status DC Magnesium Sulfate/ Dextrose 50 ml @ 25 mls/hr 1X ONCE IV Last administered on 05/16/17 12:23; Start 05/16/17 at 10:30; Stop 05/16/17 at 12:29; Status DC Ondansetron HCl (Zofran) 4 mg PRN Q8HRS PRN IV NAUSEA/VOMITING; Start 05/17/17 at 08:30 Ceftriaxone Sodium 1 gm/ Sodium Chloride 50 ml @ 100 mls/hr Q24H IV Last administered on 05/21/17 10:32; Start 05/17/17 at 10:00 Atorvastatin Calcium (Lipitor) 80 mg QHS PO Last administered on 05/21/17 21: 28; Start 05/17/17 at 21:00 Metoprolol Succinate (Toprol Xl) 50 mg DAILY PO Last administered on 05/21/17 10:29; Start 05/18/17 at 09:00 Potassium Chloride (Klor-Con) 40 meq 1X ONCE PO Last administered on 12:18; Start 05/18/17 at 12:30; Stop 05/18/17 at 12:31; Status DC Clopidogrel Bisulfate (Plavix) 75 mg DAILYWBKFT PO ; Start 05/18/17 at 13:00; Stop 05/19/17 at 11:33; Status DC Potassium Chloride (Klor-Con) 20 meq BIDAFTMEAL PO Last administered on 16:55; Start 05/18/17 at 18:00 Aspirin (Ecotrin) 162 mg DAILYWBKFT PO Last administered on 05/21/17 10:28; Start 05/20/17 at 08:00 Active Scripts Active Klor-Con M10 (Potassium Chloride) 10 Meq Tab.er.prt 10 Meq PO DAILYWBKFT Metoprolol Succinate ( Xl ) (Metoprolol Succinate) 25 Mg Tab.er.24h 25 Mg PO DAILY Lisinopril 2.5 Mg Tablet 2.5 Mg PO DAILY Furosemide 40 Mg Tablet 40 Mg PO DAILY Clopidogrel (Clopidogrel Bisulfate) 75 Mg Tablet 75 Mg PO DAILYWBKFT Reported Albuterol Sulfate Neb Soln (Albuterol Sulfate) 2.5 Mg/3 Ml Vial.neb 2.5 Mg NEB QID PRN Flomax (Tamsulosin Hcl) 0.4 Mg Cap.er.24h 2 Cap PO DAILY Lipitor (Atorvastatin Calcium) 40 Mg Tablet 1 Tab PO QHS Tylenol (Acetaminophen) 325 Mg Tablet 1-2 Tab PO Q6HRS PRN Vitals/I & O Vital Sign - Last 24 Hours 05/21/17 05/21/17 05/21/17 05/21/17 14:30 20:00 20:15 20:30 Temp 97.7 97.9 97.7 97.9 Pulse 92 96 92 Resp 16 20 27 B/P (MAP) 118/97 (104) 118/100 (106) 128/93 (105) Pulse Ox 100 99 99 O2 Delivery Room Air Room Air Room Air Room Air 05/21/17 05/21/17 05/21/17 05/21/17 20:45 21:00 21:15 21:45 Pulse 94 86 92 94 Resp 31 23 23 38 B/P (MAP) 129/96 (107) 123/97 (106) 133/100 (111) 124/97 (106) Pulse Ox 99 96 98 98 O2 Delivery Room Air Room Air Room Air Room Air 05/21/17 05/21/17 05/22/17 05/22/17 22:00 23:00 00:00 00:00 Temp 97.6 97.6 Pulse 80 98 91 Resp 15 19 10 B/P (MAP) 129/98 (108) 125/95 (105) 129/90 (103) Pulse Ox 97 95 98 O2 Delivery Room Air Room Air Room Air Room Air 05/22/17 05/22/17 05/22/17 05/22/17 01:00 03:00 04:00 04:00 Temp 97.6 97.6 Pulse 75 84 82 Resp 8 17 18 B/P (MAP) 122/98 (106) 127/101 (110) 98/71 (80) Pulse Ox 96 97 96 O2 Delivery Room Air Room Air Room Air Room Air 05/22/17 05/22/17 05:00 06:00 Pulse 78 81 Resp 10 14 B/P (MAP) 109/87 (94) 83/50 (61) Pulse Ox 98 92 O2 Delivery Room Air Room Air Intake and Output 05/21/17 05/21/17 05/22/17 15:00 23:00 07:00 Intake Total 240 ml Output Total 600 ml 245 ml Balance -360 ml -[address] head, 05/21: There is a midline mass of increased density compatible with cerebellar hemorrhage. It measures approximately 2.5 x 3.0 cm. It is of similar size when compared to the exam of 05/18/2017. Adjacent edema appears to have worsened slightly. The fourth ventricle is effaced. The third ventricle and both lateral ventricles have increased slightly in size in the interval. No new intracranial hemorrhage is seen. IMPRESSION: 1. Slight interval increase of the edema related to the midline cerebellar hemorrhage. 2. Slight interval increase in size of the lateral and third ventricles compatible with partial obstruction at the fourth ventricle level. KYLE PAGE MD May 22, 2017 10:47
--- NOTE | 2017-05-22 11:35 | RAD ---
CT of the head without contrast History: Follow-up intracranial hemorrhage, increasing headache Comparison: CT head dated 05/21/2017 Findings: Midline cerebellar hemorrhage has not significantly changed in size measuring approximately 2.5 x 3.0 cm. No significant change in surrounding edema. The fourth ventricle is effaced. No significant change in dilation of the third and bilateral lateral ventricles. No new intracranial hemorrhage is seen. Incompletely visualized maxillary metallic hardware. Trace right maxillary sinus mucosal thickening. The paranasal sinuses are otherwise well aerated. The orbits and globes are normal. Mastoid air cells are clear. IMPRESSION: 1. No significant change in posterior fossa intracranial hemorrhage. Unchanged surrounding edema. Unchanged effacement of the fourth ventricle and dilation of the third and bilateral lateral ventricles. PQRS Compliance Statement: One or more of the following individualized dose reduction techniques were utilized for this examination: 1. Automated exposure control 2. Adjustment of the mA and/or kV according to patient size 3. Use of iterative reconstruction technique
[2017-05-22] MEDS: POTASSIUM CHLORIDE 20 MEQ TABLET.ER. PO SCH ×2 (12:30→18:16)
[2017-05-22] MEDS: ASPIRIN ENTERIC COATED 81 MG TABLET.DR. PO SCH (12:30)
[2017-05-22] MEDS: FUROSEMIDE 40 MG TABLET. PO SCH (12:30)
[2017-05-22] MEDS: MECLIZINE HCL 12.5 MG TABLET. PO SCH ×3 (12:30→20:33)
[2017-05-22] MEDS: LISINOPRIL 2.5 MG TABLET PO SCH (12:32)
--- NOTE | 2017-05-22 12:58 | PDOC ---
TREMAINE WALTON CAR CHECKER 05/22/17 1258: CARDIO Progress Notes Date and Time Date of Service 05/22/2017 Time of Evaluation 1230 Subjective Subjective: No Chest Pain, No shortness of breath, No Palpitations, Other ( still have some periods of dizziness and nausea) Vitals Vitals Vital Signs Date Time Temp Pulse Resp B/P (MAP) Pulse Ox O2 Delivery O2 Flow Rate FiO2 05/22/17 12:32 84 121/89 05/22/17 06:00 14 92 Room Air 05/22/17 04:00 97.6 97.6 Weight Weight [ ] Input and Output Intake and Output Intake and Output 05/22/17 07:00 Intake Total 240 ml Output Total 845 ml Balance -605 ml Intake Oral 240 ml Output Urine Total 845 ml # Voids 5 # Bowel Movements 1 Laboratory Labs Laboratory Tests Test 05/22/17 05:00 White Blood Count 6.0 x10^3/uL (4.0-11.0) Red Blood Count 4.60 x10^6/uL (4.30-5.70) Hemoglobin 12.6 g/dL (13.0-17.5) Hematocrit 38.2 % (39.0-53.0) Mean Corpuscular Volume 83 fL (79-100) Mean Corpuscular Hemoglobin 27 pg (25-35) Mean Corpuscular Hemoglobin Concent 33 g/dL (31-37) Red Cell Distribution Width 15.7 % (11.5-14.5) Platelet Count 152 x10^3/uL (140-400) Neutrophils (%) (Auto) 63 % (31-73) Lymphocytes (%) (Auto) 26 % (24-48) Monocytes (%) (Auto) 9 % (0-9) Eosinophils (%) (Auto) 2 % (0-3) Basophils (%) (Auto) 0 % (0-3) Neutrophils # (Auto) 3.7 x10^3uL (1.8-7.7) Lymphocytes # (Auto) 1.5 x10^3/uL (1.0-4.8) Monocytes # (Auto) 0.5 x10^3/uL (0.0-1.1) Eosinophils # (Auto) 0.1 x10^3/uL (0.0-0.7) Basophils # (Auto) 0.0 x10^3/uL (0.0-0.2) Sodium Level 143 mmol/L (136-145) Potassium Level 4.1 mmol/L (3.5-5.1) Chloride Level 107 mmol/L (98-107) Carbon Dioxide Level 26 mmol/L (21-32) Anion Gap 10 (6-14) Blood Urea Nitrogen 17 mg/dL (8-26) Creatinine 0.8 mg/dL (0.7-1.3) Estimated GFR (Cockcroft-Gault) 116.3 Glucose Level 154 mg/dL (70-99) Calcium Level 8.4 mg/dL (8.5-10.1) Microbiology Micro Microbiology 05/14/17 Blood Culture - Final, Complete NO GROWTH AFTER 5 DAYS 05/14/17 Urine Culture - Final, Complete 05/14/17 Urine Culture Result 1 (KATHY) - Final, Complete 05/14/17 Antimicrobic Susceptibility - Final, Complete Physical Exam HEENT: Neck Supple W Full Motion Chest: Symmetric LUNGS: Clear to Auscultation Heart: S1S2, RRR (SR no significant ectopies) Abdomen: Soft N/T Extremities: No Edema, No Calf Tenderness Neurology: alert, oriented, follow commands Assessment Assessment 1. Acute/subacute hemorrhage midline of cerebellums with cerebral edema. 2. CAD: S/P PCI/MAHSA to LM/LAD 04/23/2017. Stable 3. ICM: EF 15-20%.NYHA 2, compensated, no significant arrhythmias Recommendations 1. Pt transferred to ICU due to increasing cerebral edema. Presently sitting upright denying any acute symptoms. Continue current regimen 2. ASA. Resume plavix when clear with neurology 3. Continue with secondary prevention. 4. Keep K and Mg close to 4.0 and 2.0 respectively. Replace K today 5. F/U in office as scheduled MATHEW CHIU MD 05/22/17 4938: CARDIO Progress Notes Plan Plan Patient seen and examined. Due to increased triple edema he was transferred to the ICU. Stable from a cardiac standpoint at this time. Denies any chest pain. On exam he is euvolemic. Medications reviewed. He's on excellent regimen at this time. Continue current medical therapy. Await initiation of Plavix when cleared by neurology and neurosurgery. TREMAINE WALTON APRN May 22, 2017 12:58 MATHEW CHIU MD May 22, 2017 17:39
--- NOTE | 2017-05-22 14:00 | PDOC ---
PROGRESS NOTES Chief Complaint Chief Complaint ENCISO 1. UTI Klebsiella on IV Rocephin 2. Coronary artery disease with recent LAD stent placement in March 3. Acute/subacute hemorrhage in midline of cerebellums with cerebral edema. 2. Cardiomyopathy, EF 15%, stable, grade 1 diastolic and systolic CHF 3. COPD 4. HLP 5. Fibromyalgia 6. BPH 7. Diverticulosis fu with neuro, neurosx, card ok transfer out of ICU repeated ct ON 05/22 stable NO PLAVIX on asa for now on meds for cardiomyopathy still on ceftriaxone neuro check History of Present Illness History of Present Illness headache batter Head ct STABLE Vitals Vitals Vital Signs Date Time Temp Pulse Resp B/P (MAP) Pulse Ox O2 Delivery O2 Flow Rate FiO2 05/22/17 12:32 84 121/89 05/22/17 12:00 18 95 Room Air 05/22/17 07:00 98.0 98.0 Physical Exam General: Alert, Oriented X3, Cooperative, No acute distress Heart: Regular rate (SR), Normal S1, Normal S2, Other (3/6 systolic murmur to LLS border) Lungs: Clear Abdomen: Soft, No tenderness Extremities: No cyanosis, No edema Skin: No breakdown, No significant lesion Labs LABS Laboratory Tests Test 05/22/17 05:00 White Blood Count 6.0 x10^3/uL (4.0-11.0) Red Blood Count 4.60 x10^6/uL (4.30-5.70) Hemoglobin 12.6 g/dL (13.0-17.5) Hematocrit 38.2 % (39.0-53.0) Mean Corpuscular Volume 83 fL (79-100) Mean Corpuscular Hemoglobin 27 pg (25-35) Mean Corpuscular Hemoglobin Concent 33 g/dL (31-37) Red Cell Distribution Width 15.7 % (11.5-14.5) Platelet Count 152 x10^3/uL (140-400) Neutrophils (%) (Auto) 63 % (31-73) Lymphocytes (%) (Auto) 26 % (24-48) Monocytes (%) (Auto) 9 % (0-9) Eosinophils (%) (Auto) 2 % (0-3) Basophils (%) (Auto) 0 % (0-3) Neutrophils # (Auto) 3.7 x10^3uL (1.8-7.7) Lymphocytes # (Auto) 1.5 x10^3/uL (1.0-4.8) Monocytes # (Auto) 0.5 x10^3/uL (0.0-1.1) Eosinophils # (Auto) 0.1 x10^3/uL (0.0-0.7) Basophils # (Auto) 0.0 x10^3/uL (0.0-0.2) Sodium Level 143 mmol/L (136-145) Potassium Level 4.1 mmol/L (3.5-5.1) Chloride Level 107 mmol/L (98-107) Carbon Dioxide Level 26 mmol/L (21-32) Anion Gap 10 (6-14) Blood Urea Nitrogen 17 mg/dL (8-26) Creatinine 0.8 mg/dL (0.7-1.3) Estimated GFR (Cockcroft-Gault) 116.3 Glucose Level 154 mg/dL (70-99) Calcium Level 8.4 mg/dL (8.5-10.1) Review of Systems Review of Systems no fever, chills, sob or chest pain Assessment and Plan Assessmemt and Plan Problems Medical Problems: (1) Urinary tract infection Status: Acute Problems: Comment Review of Relevant I have reviewed the following items raul (where applicable) has been applied. Labs Laboratory Tests Test 05/21/17 04:25 05/22/17 05:00 White Blood Count 5.8 x10^3/uL (4.0-11.0) 6.0 x10^3/uL (4.0-11.0) Red Blood Count 4.28 x10^6/uL (4.30-5.70) 4.60 x10^6/uL (4.30-5.70) Hemoglobin 11.5 g/dL (13.0-17.5) 12.6 g/dL (13.0-17.5) Hematocrit 35.7 % (39.0-53.0) 38.2 % (39.0-53.0) Mean Corpuscular Volume 83 fL (79-100) 83 fL (79-100) Mean Corpuscular Hemoglobin 27 pg (25-35) 27 pg (25-35) Mean Corpuscular Hemoglobin Concent 32 g/dL (31-37) 33 g/dL (31-37) Red Cell Distribution Width 15.6 % (11.5-14.5) 15.7 % (11.5-14.5) Platelet Count 143 x10^3/uL (140-400) 152 x10^3/uL (140-400) Neutrophils (%) (Auto) 64 % (31-73) 63 % (31-73) Lymphocytes (%) (Auto) 26 % (24-48) 26 % (24-48) Monocytes (%) (Auto) 8 % (0-9) 9 % (0-9) Eosinophils (%) (Auto) 2 % (0-3) 2 % (0-3) Basophils (%) (Auto) 0 % (0-3) 0 % (0-3) Neutrophils # (Auto) 3.7 x10^3uL (1.8-7.7) 3.7 x10^3uL (1.8-7.7) Lymphocytes # (Auto) 1.5 x10^3/uL (1.0-4.8) 1.5 x10^3/uL (1.0-4.8) Monocytes # (Auto) 0.5 x10^3/uL (0.0-1.1) 0.5 x10^3/uL (0.0-1.1) Eosinophils # (Auto) 0.1 x10^3/uL (0.0-0.7) 0.1 x10^3/uL (0.0-0.7) Basophils # (Auto) 0.0 x10^3/uL (0.0-0.2) 0.0 x10^3/uL (0.0-0.2) Sodium Level 141 mmol/L (136-145) 143 mmol/L (136-145) Potassium Level 4.0 mmol/L (3.5-5.1) 4.1 mmol/L (3.5-5.1) Chloride Level 107 mmol/L (98-107) 107 mmol/L (98-107) Carbon Dioxide Level 24 mmol/L (21-32) 26 mmol/L (21-32) Anion Gap 10 (6-14) 10 (6-14) Blood Urea Nitrogen 17 mg/dL (8-26) 17 mg/dL (8-26) Creatinine 0.8 mg/dL (0.7-1.3) 0.8 mg/dL (0.7-1.3) Estimated GFR (Cockcroft-Gault) 116.3 116.3 Glucose Level 113 mg/dL (70-99) 154 mg/dL (70-99) Calcium Level 9.0 mg/dL (8.5-10.1) 8.4 mg/dL (8.5-10.1) Laboratory Tests Test 05/22/17 05:00 White Blood Count 6.0 x10^3/uL (4.0-11.0) Red Blood Count 4.60 x10^6/uL (4.30-5.70) Hemoglobin 12.6 g/dL (13.0-17.5) Hematocrit 38.2 % (39.0-53.0) Mean Corpuscular Volume 83 fL (79-100) Mean Corpuscular Hemoglobin 27 pg (25-35) Mean Corpuscular Hemoglobin Concent 33 g/dL (31-37) Red Cell Distribution Width 15.7 % (11.5-14.5) Platelet Count 152 x10^3/uL (140-400) Neutrophils (%) (Auto) 63 % (31-73) Lymphocytes (%) (Auto) 26 % (24-48) Monocytes (%) (Auto) 9 % (0-9) Eosinophils (%) (Auto) 2 % (0-3) Basophils (%) (Auto) 0 % (0-3) Neutrophils # (Auto) 3.7 x10^3uL (1.8-7.7) Lymphocytes # (Auto) 1.5 x10^3/uL (1.0-4.8) Monocytes # (Auto) 0.5 x10^3/uL (0.0-1.1) Eosinophils # (Auto) 0.1 x10^3/uL (0.0-0.7) Basophils # (Auto) 0.0 x10^3/uL (0.0-0.2) Sodium Level 143 mmol/L (136-145) Potassium Level 4.1 mmol/L (3.5-5.1) Chloride Level 107 mmol/L (98-107) Carbon Dioxide Level 26 mmol/L (21-32) Anion Gap 10 (6-14) Blood Urea Nitrogen 17 mg/dL (8-26) Creatinine 0.8 mg/dL (0.7-1.3) Estimated GFR (Cockcroft-Gault) 116.3 Glucose Level 154 mg/dL (70-99) Calcium Level 8.4 mg/dL (8.5-10.1) Microbiology 05/14/17 Blood Culture - Final, Complete NO GROWTH AFTER 5 DAYS 05/14/17 Urine Culture - Final, Complete 05/14/17 Urine Culture Result 1 (KATHY) - Final, Complete 05/14/17 Antimicrobic Susceptibility - Final, Complete Medications Current Medications Nitroglycerin (Nitrostat) 0.4 mg PRN Q5MIN PRN SL CHEST PAIN; Start 05/14/17 at 14:30 Sodium Chloride 1,000 ml @ 2,520 mls/hr Q24M IV Last administered on 18:02; Start 05/14/17 at 16:13; Stop 05/14/17 at 17:12; Status DC Vancomycin HCl (Vanco Per Pharmacy) 1 each PRN DAILY PRN MC SEE COMMENTS Last administered on 05/15/17 13:26; Start 05/14/17 at 16:15; Stop 05/16/17 at 14:23 ; Status DC Piperacillin Sod/ Tazobactam Sod (Zosyn Per Pharmacy) 1 each PRN DAILY PRN MC SEE COMMENTS; Start 05/14/17 at 16:15; Stop 05/17/17 at 14:20; Status DC Vancomycin HCl 2 gm/Sodium Chloride 500 ml @ 250 mls/hr 1X ONCE IV Last administered on 05/14/17 17:28; Start 05/14/17 at 16:30; Stop 05/14/17 at 18:29 ; Status DC Piperacillin Sod/ Tazobactam Sod 4.5 gm/Sodium Chloride 100 ml @ 200 mls/hr 1X ONCE IV Last administered on 05/14/17 16:45; Start 05/14/17 at 16:30; Stop 05/14/17 at 16:59; Status DC Vancomycin HCl 1.25 gm/Sodium Chloride 250 ml @ 167 mls/hr Q12H IV Last administered on 05/16/17 04:55; Start 05/15/17 at 05:00; Stop 05/16/17 at 14:21 ; Status DC Ondansetron HCl (Zofran) 4 mg 1X ONCE IV Last administered on 05/14/17 18:15 ; Start 05/14/17 at 18:15; Stop 05/14/17 at 18:18; Status DC Ondansetron HCl (Zofran) 4 mg STK-MED ONCE .ROUTE ; Start 05/14/17 at 18:11; Stop 05/14/17 at 18:12; Status DC Ondansetron HCl (Zofran) 4 mg PRN Q8HRS PRN IV NAUSEA/VOMITING; Start 05/14/17 at 18:15; Stop 05/15/17 at 18:14; Status DC Morphine Sulfate 2 mg PRN Q2HR PRN IV PAIN; Start 05/14/17 at 18:15; Stop 05/15 at 18:14; Status DC Vancomycin HCl 1 each 1X ONCE MC ; Start 05/16/17 at 16:30; Stop 05/16/17 at 16 :31; Status Cancel Piperacillin Sod/ Tazobactam Sod 4.5 gm/Sodium Chloride 100 ml @ 200 mls/hr Q6HRS IV Last administered on 05/17/17 06:00; Start 05/14/17 at 23:00; Stop at 08:57; Status DC Albuterol Sulfate (Ventolin Neb Soln) 2.5 mg PRN QID PRN NEB ASTHMA; Start at 19:30 Atorvastatin Calcium (Lipitor) 40 mg QHS PO Last administered on 05/16/17 21: 07; Start 05/14/17 at 21:00; Stop 05/17/17 at 12:43; Status DC Clopidogrel Bisulfate (Plavix) 75 mg DAILYWBKFT PO Last administered on 08:20; Start 05/15/17 at 08:00; Stop 05/16/17 at 11:44; Status DC Furosemide (Lasix) 40 mg DAILY PO Last administered on 05/22/17 12:30; Start 05/15/17 at 09:00 Lisinopril (Prinivil) 2.5 mg DAILY PO Last administered on 05/22/17 12:32; Start 05/15/17 at 09:00 Metoprolol Succinate (Toprol Xl) 25 mg DAILY PO Last administered on 05/17/17 08:15; Start 05/15/17 at 09:00; Stop 05/17/17 at 16:31; Status DC Potassium Chloride (Klor-Con) 10 meq DAILYWBKFT PO Last administered on 08:19; Start 05/15/17 at 08:00; Stop 05/16/17 at 09:53; Status DC Tamsulosin HCl (Flomax) 0.8 mg QHS PO Last administered on 05/21/17 21:30; Start 05/14/17 at 21:00 Acetaminophen (Tylenol) 650 mg PRN Q6HRS PRN PO Headache Last administered on 12:36; Start 05/15/17 at 10:45 Meclizine HCl (Antivert) 12.5 mg TID PO Last administered on 05/22/17 12:30; Start 05/15/17 at 14:00 Gadobutrol (Gadavist) 7.5 mmol 1X ONCE IV Last administered on 05/15/17 18:21 ; Start 05/15/17 at 18:00; Stop 05/15/17 at 18:01; Status DC Potassium Chloride (Klor-Con) 40 meq 1X ONCE PO Last administered on 10:07; Start 05/16/17 at 09:00; Stop 05/16/17 at 09:04; Status DC Magnesium Sulfate/ Dextrose 50 ml @ 25 mls/hr 1X ONCE IV Last administered on 05/16/17 10:06; Start 05/16/17 at 09:00; Stop 05/16/17 at 10:59; Status DC Aspirin (Ecotrin) 81 mg DAILYWBKFT PO Last administered on 05/19/17 10:34; Start 05/16/17 at 09:30; Stop 05/19/17 at 11:33; Status DC Potassium Chloride (Klor-Con) 20 meq DAILYWBKFT PO Last administered on 09:15; Start 05/17/17 at 08:00; Stop 05/18/17 at 12:27; Status DC Potassium Chloride (Klor-Con) 40 meq 1X ONCE PO Last administered on 14:45; Start 05/16/17 at 15:00; Stop 05/16/17 at 15:01; Status DC Magnesium Sulfate/ Dextrose 50 ml @ 25 mls/hr 1X ONCE IV Last administered on 05/16/17 12:23; Start 05/16/17 at 10:30; Stop 05/16/17 at 12:29; Status DC Ondansetron HCl (Zofran) 4 mg PRN Q8HRS PRN IV NAUSEA/VOMITING; Start 05/17/17 at 08:30 Ceftriaxone Sodium 1 gm/ Sodium Chloride 50 ml @ 100 mls/hr Q24H IV Last administered on 05/21/17 10:32; Start 05/17/17 at 10:00 Atorvastatin Calcium (Lipitor) 80 mg QHS PO Last administered on 05/21/17 21: 28; Start 05/17/17 at 21:00 Metoprolol Succinate (Toprol Xl) 50 mg DAILY PO Last administered on 05/22/17 09:00; Start 05/18/17 at 09:00 Potassium Chloride (Klor-Con) 40 meq 1X ONCE PO Last administered on 12:18; Start 05/18/17 at 12:30; Stop 05/18/17 at 12:31; Status DC Clopidogrel Bisulfate (Plavix) 75 mg DAILYWBKFT PO ; Start 05/18/17 at 13:00; Stop 05/19/17 at 11:33; Status DC Potassium Chloride (Klor-Con) 20 meq BIDAFTMEAL PO Last administered on 12:30; Start 05/18/17 at 18:00 Aspirin (Ecotrin) 162 mg DAILYWBKFT PO Last administered on 05/22/17 12:30; Start 05/20/17 at 08:00 Active Scripts Active Klor-Con M10 (Potassium Chloride) 10 Meq Tab.er.prt 10 Meq PO DAILYWBKFT Metoprolol Succinate ( Xl ) (Metoprolol Succinate) 25 Mg Tab.er.24h 25 Mg PO DAILY Lisinopril 2.5 Mg Tablet 2.5 Mg PO DAILY Furosemide 40 Mg Tablet 40 Mg PO DAILY Clopidogrel (Clopidogrel Bisulfate) 75 Mg Tablet 75 Mg PO DAILYWBKFT Reported Albuterol Sulfate Neb Soln (Albuterol Sulfate) 2.5 Mg/3 Ml Vial.neb 2.5 Mg NEB QID PRN Flomax (Tamsulosin Hcl) 0.4 Mg Cap.er.24h 2 Cap PO DAILY Lipitor (Atorvastatin Calcium) 40 Mg Tablet 1 Tab PO QHS Tylenol (Acetaminophen) 325 Mg Tablet 1-2 Tab PO Q6HRS PRN Vitals/I & O Vital Sign - Last 24 Hours 05/21/17 05/21/17 05/21/17 05/21/17 14:30 20:00 20:15 20:30 Temp 97.7 97.9 97.7 97.9 Pulse 92 96 92 Resp 16 20 27 B/P (MAP) 118/97 (104) 118/100 (106) 128/93 (105) Pulse Ox 100 99 99 O2 Delivery Room Air Room Air Room Air Room Air 05/21/17 05/21/17 05/21/17 05/21/17 20:45 21:00 21:15 21:45 Pulse 94 86 92 94 Resp 31 23 23 38 B/P (MAP) 129/96 (107) 123/97 (106) 133/100 (111) 124/97 (106) Pulse Ox 99 96 98 98 O2 Delivery Room Air Room Air Room Air Room Air 05/21/17 05/21/17 05/22/17 05/22/17 22:00 23:00 00:00 00:00 Temp 97.6 97.6 Pulse 80 98 91 Resp 15 19 10 B/P (MAP) 129/98 (108) 125/95 (105) 129/90 (103) Pulse Ox 97 95 98 O2 Delivery Room Air Room Air Room Air Room Air 05/22/17 05/22/17 05/22/17 05/22/17 01:00 03:00 04:00 04:00 Temp 97.6 97.6 Pulse 75 84 82 Resp 8 17 18 B/P (MAP) 122/98 (106) 127/101 (110) 98/71 (80) Pulse Ox 96 97 96 O2 Delivery Room Air Room Air Room Air Room Air 05/22/17 05/22/17 05/22/17 05/22/17 05:00 06:00 07:00 08:00 Temp 98.0 98.0 Pulse 78 81 74 Resp 10 14 20 B/P (MAP) 109/87 (94) 83/50 (61) 95/68 (77) Pulse Ox 98 92 98 O2 Delivery Room Air Room Air Room Air Room Air 05/22/17 05/22/17 05/22/17 05/22/17 08:00 09:00 10:00 12:00 Pulse 74 84 82 Resp 17 16 B/P (MAP) 109/80 (90) 121/89 85/77 (80) Pulse Ox 99 92 O2 Delivery Room Air Room Air Room Air 05/22/17 05/22/17 12:00 12:32 Pulse 70 84 Resp 18 B/P (MAP) 121/69 (86) 121/89 Pulse Ox 95 O2 Delivery Room Air Intake and Output 05/21/17 05/21/17 05/22/17 15:00 23:00 07:00 Intake Total 240 ml Output Total 600 ml 245 ml Balance -360 ml -245 ml TAE COOPER MD May 22, 2017 14:00
[2017-05-22] MEDS ORDERED: METO50TA10 PO (15:34)
[2017-05-22] MEDS ORDERED: POTA20TA4 PO (15:34)
[2017-05-22] MEDS ORDERED: MECL12.52 PO (15:34)
[2017-05-22] MEDS ORDERED: ASPI-612 PO (15:34)
[2017-05-22] MEDS ORDERED: LEVO750T31 PO (15:34)
--- NOTE | 2017-05-22 15:37 | PDOC3 ---
Discharge Summary [facility] Date of Admission: May 14, 2017 Discharge Date: May 22, 2017 Admitting Diagnosis 1. UTI Klebsiella 2. Coronary artery disease with recent LAD stent placement in March 3. Acute/subacute hemorrhage in midline of cerebellums with cerebral edema. 2. Cardiomyopathy, EF 15%, stable, grade 1 diastolic and systolic CHF 3. COPD 4. HLP 5. Fibromyalgia 6. BPH 7. Diverticulosis Problems: Final Diagnosis CONSULTS card neuro neurosx Brief Hospital Course Mr. Dumont is a 66 old M, from half-way , for generalized weakness. was found UTI, and + Kpna, TREATED with ceftriaxone. HE ALso c/o some headache, right blurry vision, MRI/CT done, showed cerebellar hemarrahge. repeated CT Showed stable hemarrhage, with slightly increased edema , plavix held, on asa now. no neurosx intervention. Pt not really has any neurologic deficit, except some headache. dc back to half-way, hold plavix, repeat head ct in 1 week , then call neuro office for further recommendation. left voicemail to half-way doc. dc time 35min. Patient History: Patient reports no known family medical history. Problems: Disposition half-way CONDITION AT DISCHARGE: Improved Diet cardiac Scheduled Aspirin (Aspirin Ec), 162 MG PO DAILYWBKFT Atorvastatin Calcium (Lipitor), 1 TAB PO QHS, (Reported) Furosemide (Furosemide), 40 MG PO DAILY Levofloxacin (Levaquin), 750 MG PO DAILY06 Lisinopril (Lisinopril), 2.5 MG PO DAILY Meclizine Hcl (Meclizine Hcl), 12.5 MG PO TID Metoprolol Succinate (Metoprolol Succinate), 50 MG PO DAILY Potassium Chloride (Klor-Con M20), 20 MEQ PO BIDAFTMEAL Tamsulosin Hcl (Flomax), 2 CAP PO DAILY, (Reported) Scheduled PRN Acetaminophen (Tylenol), 1-2 TAB PO Q6HRS PRN for ARTHRITIS, (Reported) Albuterol Sulfate (Albuterol Sulfate Neb Soln), 2.5 MG NEB QID PRN for ASTHMA, ( Reported) Discontinued Medications Clopidogrel Bisulfate (Clopidogrel), 75 MG PO DAILYWBKFT Metoprolol Succinate (Metoprolol Succinate ( Xl )), 25 MG PO DAILY Potassium Chloride (Klor-Con M10), 10 MEQ PO DAILYWBKFT Follow Up neuro in 1 week TAE COOPER MD May 22, 2017 15:37
[2017-05-22] MEDS: TAMSULOSIN 0.4 MG CAP.ER.24H. PO SCH (20:34)
[2017-05-22] MEDS: ATORVASTATIN CALCIUM 40 MG TABLET. PO SCH (20:34)
== END 2017-05-22 23:05 | DRG 871 ==
LOC: EEVIPCON 13:32 → ER 13:32 → INTOOBSV 16:22 → 4 NORTH 16:22 → OBSVTOIN 16:28 → 4 NORTH 19:10 → 1 WEST ICU 05-21 20:30
PROVIDERS: ADMIT Internal Medicine; ATTEND Internal Medicine
DX: A41.9 Sepsis, unspecified organism (principal); G93.6 Cerebral edema; I61.4 Nontraumatic intracerebral hemorrhage in cerebellum; I42.9 Cardiomyopathy, unspecified; I47.1 Supraventricular tachycardia; I50.40 Unspecified combined systolic (congestive) and diastolic (congestive) heart failure; N39.0 Urinary tract infection, site not specified; E11.9 Type 2 diabetes mellitus without complications; E78.5 Hyperlipidemia, unspecified; I25.10 Atherosclerotic heart disease of native coronary artery without angina pectoris; J44.9 Chronic obstructive pulmonary disease, unspecified; K21.9 Gastro-esophageal reflux disease without esophagitis; K57.90 Diverticulosis of intestine, part unspecified, without perforation or abscess without bleeding; M79.7 Fibromyalgia; N40.0 Benign prostatic hyperplasia without lower urinary tract symptoms; R65.20 Severe sepsis without septic shock; H53.9 Unspecified visual disturbance; B96.1 Klebsiella pneumoniae [K. pneumoniae] as the cause of diseases classified elsewhere; I25.5 Ischemic cardiomyopathy; Z79.899 Other long term (current) drug therapy; Z87.891 Personal history of nicotine dependence; Z95.5 Presence of coronary angioplasty implant and graft
CPT/HCPCS: 36415; 70450; 70544; 70551; 70552; 71010; 80048; 80061; 80076; 81001; 82550; 82607; 83605; 83690; 83735; 83880; 84443; 84484; 85007; 85027; 87040; 87086; 87186; 87641; 93005; A9585; G0379; G0481; J0696; J2405; J2543; J3370; J7030; J7040; J7050; J7060; J8597; 97116; 97530; 97535

== ENCOUNTER 2017-05-28 16:41 | Inpatient (IN) | payer MEDICAID, OTHER ==
[2017-05-28] VITALS (7 sets, daily range): BP systolic 93–140; BP diastolic 69–96
[~2017-05-28] VITALS: Ht 177.8 cm; Wt 81.8 kg
[~2017-05-28 16:41] MED LIST changes: +ASPI-612 PO; +LEVO750T31 PO; +MECL12.52 PO; +METO50TA10 PO; +POTA20TA4 PO
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
--- NOTE | 2017-05-28 17:58 | RAD ---
CT HEAD WO CONTRAST History: Change in symptoms, intracranial bleed Comparison: May 22, 2017. Technique: Noncontrast [address] images were acquired from the skull base to the vertex. Exposure: One or more of the following individualized dose reduction techniques were utilized for this examination: 1. Automated exposure control 2. Adjustment of the mA and/or kV according to patient size 3. Use of iterative reconstruction technique. Findings: Focus of hyperdense parenchymal hemorrhage of the central cerebellum measures approximately 3.4 cm AP by 2.6 cm transverse versus previously 2.8 cm AP by 2.2 cm transverse, overall larger than previously. There is greater degree of mass effect as well as associated edema. There is effacement of the fourth ventricle. Lateral ventricles and third ventricles are now more dilated, overall moderate to severe third and lateral ventriculomegaly now present. There is no new midline shift. There is ill-defined low density of the periventricular white matter bilaterally, relatively greater. No new focus of parenchymal hemorrhage is identified. There is increased effacement of the basilar cisterns. Impression: 1. Focus of parenchymal hemorrhage of the central cerebellum is larger with increased vasogenic edema and mass effect, increased effacement of the fourth ventricle and increased moderate to severe lateral and third ventriculomegaly. Ill-defined low-density of the periventricular white matter bilaterally is probably at least in part from transependymal CSF flow. There is increased effacement of the basilar cisterns. FOR INTERNAL CODING PURPOSES Critical result: Findings discussed with Dr. Lockett in the emergency department at 05/28/2017 5:53 PM. RESULT CODE: (C) Electronically signed by: Yonny Schofield MD (05/28/2017 5:55 PM) [facility]
[2017-05-28 18:10] LABS: BASO % 1 % (0-3); EOS % 1 % (0-3); HEMATOCRIT 43.3 % (39.0-53.0); HEMOGLOBIN 14.2 g/dL (13.0-17.5); LYMPH # 1.4 x10^3/uL (1.0-4.8); LYMPH % 21 % (24-48); MEAN CORPUSCULAR HEMOGLOBIN 27 pg (25-35); MEAN CORPUSCULAR HGB CONC 33 g/dL (31-37); MEAN CORPUSCULAR VOLUME 82 fL (79-100); MONO % 9 % (0-9); NEUT % 69 % (31-73); PLATELET COUNT 135 x10^3/uL (140-400); RED BLOOD COUNT 5.27 x10^6/uL (4.30-5.70); RED CELL DISTRIBUTION WIDTH 16.5 % (11.5-14.5); WHITE BLOOD COUNT 6.5 x10^3/uL (4.0-11.0)
[2017-05-28 18:15] LABS: CREATININE 0.8 mg/dL (0.7-1.3); GFR 116.3; POTASSIUM 3.8 mmol/L (3.5-5.1)
[2017-05-28 18:22] LABS: ALBUMIN 3.7 g/dL (3.4-5.0); ALBUMIN/GLOBULIN RATIO 0.9 (1.0-1.7); TOTAL BILIRUBIN 1.4 mg/dL (0.2-1.0); TOTAL PROTEIN 7.8 g/dL (6.4-8.2)
[2017-05-28 18:30] LABS: BILIRUBIN,URINE NEGATIVE (NEG); GLUCOSE,URINE NEGATIVE (NEG); NITRITE,URINE NEGATIVE (NEG); PROTEIN,URINE NEGATIVE (NEG-TRACE); UROBILINOGEN,URINE 0.2 mg/dL (0.2 mg/dL)
[2017-05-28 18:33] LABS: BACTERIA,URINE 0 /HPF (0-FEW); RBC,URINE 0 /HPF (0-2); SQUAMOUS EPITHELIAL CELL,UR MANY /LPF; WBC,URINE OCC /HPF (0-4)
[2017-05-28] MEDS ORDERED: ONDANSETRON PF 4 MG/2 ML VIAL. IV PRN (19:00)
[2017-05-28 19:57] LABS: INR 1.1 (0.8-1.1); PROTHROMBIN TIME PATIENT 13.4 SEC (11.7-14.0)
[2017-05-28] MEDS ORDERED: ATORVASTATIN CA80 MG PO (21:53)
[2017-05-28] MEDS ORDERED: TRAM50TA PO (21:54)
[2017-05-28] MEDS ORDERED: TAMS0.4C97 PO (21:57)
[2017-05-28] MEDS ORDERED: NITR0.4T22 SL (21:57)
[2017-05-28] MEDS ORDERED: MECL12.52 PO (21:58)
[2017-05-28] MEDS ORDERED: PROAIR RESPICL90 MCG IH (22:00)
[2017-05-28] MEDS ORDERED: POTA20TA82 PO (22:01)
[2017-05-28] MEDS ORDERED: CLOP75TA57 PO (22:02)
[2017-05-28] MEDS ORDERED: METO50TA2 PO (22:02)
[2017-05-28] MEDS ORDERED: ALBUTEROL SULFATE 2.5 MG/3 ML NEBU. NEB PRN (22:30)
[2017-05-28] MEDS ORDERED: MECLIZINE HCL 12.5 MG TABLET. PO PRN (22:30)
[2017-05-28] MEDS ORDERED: NITROGLYCERIN SUBLINGUAL 0.4 MG BOTTLE OF 25. SL PRN (22:30)
--- NOTE | 2017-05-28 22:32 | PDOC1 ---
History and Physical Date of Admission Date of Admission DATE: 05/28/17 TIME: 22:24 Identification/Chief Complaint Chief Complaint dizzy, balance Problems: Source Source: Chart review, Patient History of Present Illness History of Present Illness Mr. Dumont, is a 66 year old male sent to the ED by EMS from [facility], return of Headache,dizziness, balance trouble. He was recently hospitalized for UTI w/ sepsis, then had a ENCISO, CT showed a cerebellar hemorrhage. thought to be stable 10 days ago, then headache worsened , CT repeated, a little more blood, then observed in ICU. Bleed thought to be improved by holding Plavix. Plavix for cardiac funtion, and was held, just restarted this AM, then symptoms acutely worsened, and CT head here showed large bleed with edema than before, no nausea or vomiting, and his headache seems OK right now, neuro check so far have been stable, Pt admitted to ICU for hourly neuro checks, Neurosurg following. Past Medical History Cardiovascular: Hyperlipidemia Pulmonary: COPD CENTRAL NERVOUS SYSTEM: Other GI: Diverticulosis, Other Heme/Onc: No pertinent hx Hepatobiliary: No pertinent hx Psych: No pertinent hx Musculoskeletal: No pain Rheumatologic: Fibromyalgia Infectious disease: No pertinent hx Renal/: Benign prostatic enlarg. Endocrine: No pertinent hx Past Surgical History Past Surgical History: Other Family History Family History: No Significant, Family History Unknown Social History Smoke: No ALCOHOL: none Drugs: Other Current Medications Current Medications Current Medications Ondansetron HCl (Zofran) 4 mg PRN Q8HRS PRN IV NAUSEA/VOMITING; Start 05/28/17 at 19:00; Stop 05/29/17 at 18:59 Active Scripts Active Aspirin Ec (Aspirin) 81 Mg Tablet.dr 162 Mg PO DAILYWBKFT 30 Days Lisinopril 2.5 Mg Tablet 2.5 Mg PO DAILY Furosemide 40 Mg Tablet 40 Mg PO DAILY Reported Plavix (Clopidogrel Bisulfate) 75 Mg Tablet 1 Tab PO DAILY Metoprolol Tartrate 50 Mg Tablet 1 Tab PO BID Potassium Chloride 20 Meq Tablet.er 20 Meq PO DAILY Proair Respiclick (Albuterol Sulfate) 90 Mcg Aer.pow.ba 2 Puff IH TWICE WEEKLY PRN Meclizine Hcl 12.5 Mg Tablet 1 Tab PO TID PRN NITROGLYCERIN SubLingual (Nitroglycerin) 0.4 Mg Tab.subl 0.4 Mg SL PRN Q5MIN PRN Flomax (Tamsulosin Hcl) 0.4 Mg Cap.er.24h 0.8 Mg PO HS Tramadol Hcl 50 Mg Tablet 50 Mg PO Q6H PRN Atorvastatin Calcium 80 Mg Tablet 80 Mg PO HS Albuterol Sulfate Neb Soln (Albuterol Sulfate) 2.5 Mg/3 Ml Vial.neb 2.5 Mg NEB QID PRN Tylenol (Acetaminophen) 325 Mg Tablet 1-2 Tab PO Q6HRS PRN Allergies Allergies: Coded Allergies: No Known Drug Allergies (Unverified , 04/24/17) ROS General: YES: Fatigue, No: Chills, Night Sweats, Malaise, Appetite, Other PSYCHOLOGICAL ROS: No: Anxiety, Behavioral Disorder, Concentration difficultie , Decreased libido, Depression, Disorientation, Hallucinations, Hostility, Irritablity, Memory difficulties, Mood Swings, Obsessive thoughts, Other Eyes: No Blurry vision, No Decreased vision, No Double vision, No Dry eyes, No Excessive tearing, No Eye Pain, No Itchy Eyes, No Loss of vision, No Photophobia , No Scotomata, No Uses contacts, No Uses glasses, No Other HEENT: YES: Heacaches, No: Visual Changes, Hearing change, Nasal congestion, Nasal discharge, Oral lesions, Sinus pain, Sore Throat, Epistaxis, Sneezing, Snoring, Tinnitus, Vertigo, Vocal changes, Other Gastrointestinal: No Vomiting, No Abdominal Pain, No Diarrhea, No Constipation , No Melena, No Hematochezia, No Other Genitourinary: No Dysuria, No Frequency, No Incontinence, No Hematuria, No Retention, No Discharge, No Urgency, No Pain, No Flank Pain, No Other, No , No , No , No , No , No , No Musculoskeletal: No Gait Disturbance, No Joint Pain, No Joint Stiffness, No Joint Swelling, No Muscle Pain, No Muscular Weakness, No Pain In:, No Swelling In:, No Other Neurological: Yes Confusion, Yes Dizziness, Yes Gait Disturbance Skin: Yes Dry Skin, No Eczema, No Hair Changes, No Lumps, No Mole Changes, No Mottling, No Nail Changes, No Pruritus, No Rash, No Skin Lesion Changes, No Other, No Acne Physical Exam General: Alert, Oriented X3, Cooperative, No acute distress, Other (recognized me from 10 days ago) HEENT: EOMI, Mucous membr. moist/pink Lungs: Normal air movement Heart: no gallops, no murmurs Abdomen: Normal bowel sounds, Soft Extremities: No edema, Normal pulses Skin: No significant lesion Neuro: Normal tone, Sensation intact, Cranial nerves 3-12 NL Psych/Mental Status: Mood NL Vitals Vitals Vital Signs Date Time Temp Pulse Resp B/P (MAP) Pulse Ox O2 Delivery O2 Flow Rate FiO2 05/28/17 22:00 82 17 106/69 (81) 97 Room Air 05/28/17 20:00 97.9 97.9 Labs Labs Laboratory Tests Test 05/28/17 17:55 05/28/17 18:15 05/28/17 19:35 White Blood Count 6.5 x10^3/uL (4.0-11.0) Red Blood Count 5.27 x10^6/uL (4.30-5.70) Hemoglobin 14.2 g/dL (13.0-17.5) Hematocrit 43.3 % (39.0-53.0) Mean Corpuscular Volume 82 fL (79-100) Mean Corpuscular Hemoglobin 27 pg (25-35) Mean Corpuscular Hemoglobin Concent 33 g/dL (31-37) Red Cell Distribution Width 16.5 % (11.5-14.5) Platelet Count 135 x10^3/uL (140-400) Neutrophils (%) (Auto) 69 % (31-73) Lymphocytes (%) (Auto) 21 % (24-48) Monocytes (%) (Auto) 9 % (0-9) Eosinophils (%) (Auto) 1 % (0-3) Basophils (%) (Auto) 1 % (0-3) Neutrophils # (Auto) 4.5 x10^3uL (1.8-7.7) Lymphocytes # (Auto) 1.4 x10^3/uL (1.0-4.8) Monocytes # (Auto) 0.6 x10^3/uL (0.0-1.1) Eosinophils # (Auto) 0.0 x10^3/uL (0.0-0.7) Basophils # (Auto) 0.0 x10^3/uL (0.0-0.2) Sodium Level 140 mmol/L (136-145) Potassium Level 3.8 mmol/L (3.5-5.1) Chloride Level 103 mmol/L (98-107) Carbon Dioxide Level 27 mmol/L (21-32) Anion Gap 10 (6-14) Blood Urea Nitrogen 20 mg/dL (8-26) Creatinine 0.8 mg/dL (0.7-1.3) Estimated GFR (Cockcroft-Gault) 116.3 BUN/Creatinine Ratio 25 (6-20) Glucose Level 143 mg/dL (70-99) Calcium Level 9.0 mg/dL (8.5-10.1) Total Bilirubin 1.4 mg/dL (0.2-1.0) Aspartate Amino Transf (AST/SGOT) 18 U/L (15-37) Alanine Aminotransferase (ALT/SGPT) 25 U/L (16-63) Alkaline Phosphatase 86 U/L (46-116) Total Protein 7.8 g/dL (6.4-8.2) Albumin 3.7 g/dL (3.4-5.0) Albumin/Globulin Ratio 0.9 (1.0-1.7) Urine Collection Type Unknown Urine Color Yellow Urine Clarity Clear Urine pH 5.0 Urine Specific [place] 1.025 Urine Protein Negative mg/dL (NEG-TRACE) Urine Glucose (UA) Negative mg/dL (NEG) Urine Ketones (Stick) Trace mg/dL (NEG) Urine Blood Negative (NEG) Urine Nitrite Negative (NEG) Urine Bilirubin Negative (NEG) Urine Urobilinogen Dipstick 0.2 mg/dL (0.2 mg/dL) Urine Leukocyte Esterase Negative (NEG) Urine RBC 0 /HPF (0-2) Urine WBC Occ /HPF (0-4) Urine Squamous Epithelial Cells Many /LPF Urine Bacteria 0 /HPF (0-FEW) Urine Mucus Marked /LPF Prothrombin Time 13.4 SEC (11.7-14.0) Prothromb Time International Ratio 1.1 (0.8-1.1) Activated Partial Thromboplast Time 27 SEC (24-38) Laboratory Tests Test 05/28/17 17:55 05/28/17 18:15 05/28/17 19:35 White Blood Count 6.5 x10^3/uL (4.0-11.0) Red Blood Count 5.27 x10^6/uL (4.30-5.70) Hemoglobin 14.2 g/dL (13.0-17.5) Hematocrit 43.3 % (39.0-53.0) Mean Corpuscular Volume 82 fL (79-100) Mean Corpuscular Hemoglobin 27 pg (25-35) Mean Corpuscular Hemoglobin Concent 33 g/dL (31-37) Red Cell Distribution Width 16.5 % (11.5-14.5) Platelet Count 135 x10^3/uL (140-400) Neutrophils (%) (Auto) 69 % (31-73) Lymphocytes (%) (Auto) 21 % (24-48) Monocytes (%) (Auto) 9 % (0-9) Eosinophils (%) (Auto) 1 % (0-3) Basophils (%) (Auto) 1 % (0-3) Neutrophils # (Auto) 4.5 x10^3uL (1.8-7.7) Lymphocytes # (Auto) 1.4 x10^3/uL (1.0-4.8) Monocytes # (Auto) 0.6 x10^3/uL (0.0-1.1) Eosinophils # (Auto) 0.0 x10^3/uL (0.0-0.7) Basophils # (Auto) 0.0 x10^3/uL (0.0-0.2) Sodium Level 140 mmol/L (136-145) Potassium Level 3.8 mmol/L (3.5-5.1) Chloride Level 103 mmol/L (98-107) Carbon Dioxide Level 27 mmol/L (21-32) Anion Gap 10 (6-14) Blood Urea Nitrogen 20 mg/dL (8-26) Creatinine 0.8 mg/dL (0.7-1.3) Estimated GFR (Cockcroft-Gault) 116.3 BUN/Creatinine Ratio 25 (6-20) Glucose Level 143 mg/dL (70-99) Calcium Level 9.0 mg/dL (8.5-10.1) Total Bilirubin 1.4 mg/dL (0.2-1.0) Aspartate Amino Transf (AST/SGOT) 18 U/L (15-37) Alanine Aminotransferase (ALT/SGPT) 25 U/L (16-63) Alkaline Phosphatase 86 U/L (46-116) Total Protein 7.8 g/dL (6.4-8.2) Albumin 3.7 g/dL (3.4-5.0) Albumin/Globulin Ratio 0.9 (1.0-1.7) Urine Collection Type Unknown Urine Color Yellow Urine Clarity Clear Urine pH 5.0 Urine Specific [place] 1.025 Urine Protein Negative mg/dL (NEG-TRACE) Urine Glucose (UA) Negative mg/dL (NEG) Urine Ketones (Stick) Trace mg/dL (NEG) Urine Blood Negative (NEG) Urine Nitrite Negative (NEG) Urine Bilirubin Negative (NEG) Urine Urobilinogen Dipstick 0.2 mg/dL (0.2 mg/dL) Urine Leukocyte Esterase Negative (NEG) Urine RBC 0 /HPF (0-2) Urine WBC Occ /HPF (0-4) Urine Squamous Epithelial Cells Many /LPF Urine Bacteria 0 /HPF (0-FEW) Urine Mucus Marked /LPF Prothrombin Time 13.4 SEC (11.7-14.0) Prothromb Time International Ratio 1.1 (0.8-1.1) Activated Partial Thromboplast Time 27 SEC (24-38) VTE Prophylaxis Ordered VTE Prophylaxis Devices: Yes VTE Pharmacological Prophylaxi: Yes Assessment/Plan Assessment/Plan Dizzy, weak, headache new neuro symptoms, worsening of cerebellar hemorrhage from previous. Admit to ICU, Neuro surg to follow, Neuro had been consulted previously, HOLD plavix, minimal thrombocytopenia CAD, will need to avoid anti-plt therapy for some time. BHAVANI BLAS MD May 28, 2017 22:32
[2017-05-28] MEDS ORDERED: LABETALOL 20 MG/4 ML DISP.SYRIN. IVP PRN (22:45)
[2017-05-28] MEDS ORDERED: hydrALAZINE 20 MG/ML VIAL. IVP PRN (22:45)
[2017-05-29] VITALS (26 sets, daily range): BP systolic 86–133; BP diastolic 65–92
[2017-05-29 04:10] LABS: BASO % 1 % (0-3); EOS % 0 % (0-3); HEMATOCRIT 45.6 % (39.0-53.0); HEMOGLOBIN 14.5 g/dL (13.0-17.5); LYMPH # 1.1 x10^3/uL (1.0-4.8); LYMPH % 19 % (24-48); MEAN CORPUSCULAR HEMOGLOBIN 27 pg (25-35); MEAN CORPUSCULAR HGB CONC 32 g/dL (31-37); MEAN CORPUSCULAR VOLUME 84 fL (79-100); MONO % 7 % (0-9); NEUT % 73 % (31-73); PLATELET COUNT 129 x10^3/uL (140-400); RED BLOOD COUNT 5.41 x10^6/uL (4.30-5.70); RED CELL DISTRIBUTION WIDTH 16.3 % (11.5-14.5); WHITE BLOOD COUNT 6.1 x10^3/uL (4.0-11.0)
[2017-05-29 04:25] LABS: ALBUMIN 3.9 g/dL (3.4-5.0); ALBUMIN/GLOBULIN RATIO 0.9 (1.0-1.7); CALCIUM 9.8 mg/dL (8.5-10.1); CREATININE 0.9 mg/dL (0.7-1.3); GFR 101.5; MAGNESIUM 1.8 mg/dL (1.8-2.4); POTASSIUM 3.6 mmol/L (3.5-5.1); TOTAL BILIRUBIN 1.7 mg/dL (0.2-1.0); TOTAL PROTEIN 8.2 g/dL (6.4-8.2)
--- NOTE | 2017-05-29 04:33 | ACF ---
Admission Forms Criteria DIZZINESS Clinical Indications for Admission to Inpatient Care (Place 'X' for any and all applicable criteria): Admission is indicated for ANY ONE of the following(1)(2)(3)(4): [X]I. Inpatient admission required rather than observation care (Also use Dizziness: Observation Care as appropriate) because of ANY ONE of the following: [ ]a) Hemodynamic instability that is severe or persistent [ ]b) Signs or symptoms that are severe or persistent (eg, vomit, orthostasis, inability to ambulate) [ ]c) Cardiac arrhythmias of immediate concern [X]d) Severe (new) neurologic findings requiring inpatient care as indicated by ANY ONE of the following(6)(7): [X]1) Cerebral bleeding, ischemia, or vasospasm(8)(9) [ ]2) Increased intracranial pressure or hydrocephalus(10)(11)(12) [ ]3) Papilledema [ ]4) Cerebral edema [ ]5) Mass effect on CT scan [ ]e) Continuous IV infusion of anticoagulation, platelet inhibitor, vasoactive, or antiarrhythmic medication [ ]f) Cerebral bleeding, hydrocephalus, or vasospasm monitoring(14) [ ]g) Increased intracranial pressure or cerebral edema monitoring [ ]h) Vomiting that is severe or persistent [ ]i) Other condition, treatment or monitoring requiring inpatient admission [ ]II. A suspected etiology that requires admission for treatment [ ]III. Acute bacterial labyrinthitis [ ]IV. Cerebellar, brainstem, or cerebral ischemia or hemorrhage (5) Extended stay beyond goal length of stay may be needed for evaluating and treating a specific cause of dizziness, including(32) [ ]a) Head injury (Also use Traumatic Brain Injury, Nonsurgical Treatment guideline) [ ]b) New-onset vertebrobasilar vascular insufficiency [ ]c) Acute Meniere disease with intractable symptoms [ ]d) Cardiac arrhythmias or conduction defects [ ]e) Acute neurologic event causing dizziness [ ]f) Myocardial ischemia [ ]g) Acute bacterial labyrinthitis. [ ]h) Severe acute vestibular neuronitis The original [employer] content created by [employer] has been revised. The portions of the content which have been revised are identified through the use of italic text or in bold, and [facility] [employer] has neither reviewed nor approved the modified material. All other unmodified content is copyright [facility]. Please see references footnoted in the original [facility] edition 2016 Admission Criteria Met?: Yes MIRZA JONES May 29, 2017 04:33
[2017-05-29] MEDS ORDERED: fentaNYL PF VIAL 100 MCG/2 ML VIAL IM ONE (07:45)
--- NOTE | 2017-05-29 07:51 | RAD ---
CT of the head without contrast, 05/29/2017: History: Worsening cerebellar hemorrhage Comparison is made to yesterday evening's study. The midline cerebellar hemorrhage is unchanged. There is moderate surrounding edema with effacement of the fourth ventricle. Dilatation of the third ventricle and lateral ventricles is unchanged. There are mild bilateral deep white matter lucencies, probably predominantly due to transependymal CSF resorption. There is no midline shift. No new hemorrhage or mass effect is seen. IMPRESSION: 1. Unchanged midline cerebellar hemorrhage. 2. Unchanged hydrocephalus due to mass effect upon the fourth ventricle by the cerebellar hemorrhage. PQRS Compliance Statement: One or more of the following individualized dose reduction techniques were utilized for this examination: 1. Automated exposure control 2. Adjustment of the mA and/or kV according to patient size 3. Use of iterative reconstruction technique
[2017-05-29] MEDS ORDERED: LIDOCAINE 2% 100 MG/5 ML SYRINGE. ONE (07:56)
[2017-05-29] MEDS ORDERED: LIDOCAINE 2% 100 MG/5 ML SYRINGE. IV ONE (08:00)
--- NOTE | 2017-05-29 08:50 | PDOC2 ---
CONSULT Date of Consult Date of Consult DATE: 05/29/17 TIME: 06:49 Reason for Consult Reason for Consult: posterior fossa hematoma, hydrocephalus Past Medical History Cardiovascular: Hyperlipidemia Pulmonary: COPD CENTRAL NERVOUS SYSTEM: Other GI: Diverticulosis, Other Heme/Onc: No pertinent hx Hepatobiliary: No pertinent hx Psych: No pertinent hx Musculoskeletal: No pain Rheumatologic: Fibromyalgia Infectious disease: No pertinent hx Renal/: Benign prostatic enlarg. Endocrine: No pertinent hx Past Surgical History Past Surgical History: Other Family History Family History: No Significant, Family History Unknown Social History No ALCOHOL: none Drugs: Other Lives: Roommate Current Medications Current Medications Current Medications Ondansetron HCl (Zofran) 4 mg PRN Q8HRS PRN IV NAUSEA/VOMITING Last administered on 05/29/17t 02:54; Start 05/28/17 at 19:00; Stop 05/29/17 at 18:59 Acetaminophen (Tylenol) 325 mg PRN Q6HRS PRN PO ARTHRITIS; Start 05/28/17 at 22 :30 Albuterol Sulfate (Ventolin Neb Soln) 2.5 mg PRN QID PRN NEB ASTHMA; Start at 22:30 Furosemide (Lasix) 40 mg DAILY PO ; Start 05/29/17 at 09:00 Lisinopril (Prinivil) 2.5 mg DAILY PO ; Start 05/29/17 at 09:00 Meclizine HCl (Antivert) 12.5 mg PRN TID PRN PO DIZZINESS; Start 05/28/17 at 22 :30 Metoprolol Tartrate (Lopressor) 50 mg BID PO ; Start 05/29/17 at 09:00 Nitroglycerin (Nitrostat) 0.4 mg PRN Q5MIN PRN SL CHEST PAIN; Start 05/28/17 at 22:30 Tamsulosin HCl (Flomax) 0.8 mg HS PO ; Start 05/29/17 at 21:00 Tramadol HCl (Ultram) 50 mg PRN Q6HRS PRN PO PAIN; Start 05/28/17 at 22:30 Atorvastatin Calcium (Lipitor) 80 mg HS PO ; Start 05/29/17 at 21:00 Potassium Chloride (Klor-Con) 20 meq DAILYWBKFT PO ; Start 05/29/17 at 08:00 Labetalol HCl (Normodyne) 20 mg PRN Q2HR PRN IVP HYPERTENSION, SEE COMMENTS; Start 05/28/17 at 22:45 Hydralazine HCl (Apresoline) 10 mg PRN Q4HRS PRN IVP ELEVATED BP, SEE COMMENTS ; Start 05/28/17 at 22:45 Fentanyl Citrate (Fentanyl 2ml Vial) 50 mcg 1X ONCE IM Last administered on 07:53; Start 05/29/17 at 07:45; Stop 05/29/17 at 07:46; Status DC Lidocaine HCl (Lidocaine HCl 2% Abboject) 100 mg STK-MED ONCE .ROUTE ; Start 05/29/17 at 07:56; Stop 05/29/17 at 07:57; Status DC Lidocaine HCl (Lidocaine HCl 2% Abboject) 100 mg 1X ONCE IV Last administered on 05/29/17 08:01; Start 05/29/17 at 08:00; Stop 05/29/17 at 08:01; Status DC Active Scripts Active Aspirin Ec (Aspirin) 81 Mg Tablet.dr 162 Mg PO DAILYWBKFT 30 Days Lisinopril 2.5 Mg Tablet 2.5 Mg PO DAILY Furosemide 40 Mg Tablet 40 Mg PO DAILY Reported Plavix (Clopidogrel Bisulfate) 75 Mg Tablet 1 Tab PO DAILY Metoprolol Tartrate 50 Mg Tablet 1 Tab PO BID Potassium Chloride 20 Meq Tablet.er 20 Meq PO DAILY Proair Respiclick (Albuterol Sulfate) 90 Mcg Aer.pow.ba 2 Puff IH TWICE WEEKLY PRN Meclizine Hcl 12.5 Mg Tablet 1 Tab PO TID PRN NITROGLYCERIN SubLingual (Nitroglycerin) 0.4 Mg Tab.subl 0.4 Mg SL PRN Q5MIN PRN Flomax (Tamsulosin Hcl) 0.4 Mg Cap.er.24h 0.8 Mg PO HS Tramadol Hcl 50 Mg Tablet 50 Mg PO Q6H PRN Atorvastatin Calcium 80 Mg Tablet 80 Mg PO HS Albuterol Sulfate Neb Soln (Albuterol Sulfate) 2.5 Mg/3 Ml Vial.neb 2.5 Mg NEB QID PRN Tylenol (Acetaminophen) 325 Mg Tablet 1-2 Tab PO Q6HRS PRN Allergies Allergies: Coded Allergies: No Known Drug Allergies (Unverified , 04/24/17) Vitals VITALS Vital Signs Date Time Temp Pulse Resp B/P (MAP) Pulse Ox O2 Delivery O2 Flow Rate FiO2 05/29/17 08:01 77 119/90 05/29/17 07:53 27 96 05/29/17 07:00 Room Air 05/29/17 00:08 98.9 98.9 Labs Labs Laboratory Tests Test 05/28/17 17:55 05/28/17 18:15 05/28/17 19:35 05/29/17 03:45 White Blood Count 6.5 x10^3/uL (4.0-11.0) 6.1 x10^3/uL (4.0-11.0) Red Blood Count 5.27 x10^6/uL (4.30-5.70) 5.41 x10^6/uL (4.30-5.70) Hemoglobin 14.2 g/dL (13.0-17.5) 14.5 g/dL (13.0-17.5) Hematocrit 43.3 % (39.0-53.0) 45.6 % (39.0-53.0) Mean Corpuscular Volume 82 fL (79-100) 84 fL (79-100) Mean Corpuscular Hemoglobin 27 pg (25-35) 27 pg (25-35) Mean Corpuscular Hemoglobin Concent 33 g/dL (31-37) 32 g/dL (31-37) Red Cell Distribution Width 16.5 % (11.5-14.5) 16.3 % (11.5-14.5) Platelet Count 135 x10^3/uL (140-400) 129 x10^3/uL (140-400) Neutrophils (%) (Auto) 69 % (31-73) 73 % (31-73) Lymphocytes (%) (Auto) 21 % (24-48) 19 % (24-48) Monocytes (%) (Auto) 9 % (0-9) 7 % (0-9) Eosinophils (%) (Auto) 1 % (0-3) 0 % (0-3) Basophils (%) (Auto) 1 % (0-3) 1 % (0-3) Neutrophils # (Auto) 4.5 x10^3uL (1.8-7.7) 4.5 x10^3uL (1.8-7.7) Lymphocytes # (Auto) 1.4 x10^3/uL (1.0-4.8) 1.1 x10^3/uL (1.0-4.8) Monocytes # (Auto) 0.6 x10^3/uL (0.0-1.1) 0.4 x10^3/uL (0.0-1.1) Eosinophils # (Auto) 0.0 x10^3/uL (0.0-0.7) 0.0 x10^3/uL (0.0-0.7) Basophils # (Auto) 0.0 x10^3/uL (0.0-0.2) 0.0 x10^3/uL (0.0-0.2) Sodium Level 140 mmol/L (136-145) 141 mmol/L (136-145) Potassium Level 3.8 mmol/L (3.5-5.1) 3.6 mmol/L (3.5-5.1) Chloride Level 103 mmol/L (98-107) 101 mmol/L (98-107) Carbon Dioxide Level 27 mmol/L (21-32) 29 mmol/L (21-32) Anion Gap 10 (6-14) 11 (6-14) Blood Urea Nitrogen 20 mg/dL (8-26) 21 mg/dL (8-26) Creatinine 0.8 mg/dL (0.7-1.3) 0.9 mg/dL (0.7-1.3) Estimated GFR (Cockcroft-Gault) 116.3 101.5 BUN/Creatinine Ratio 25 (6-20) 23 (6-20) Glucose Level 143 mg/dL (70-99) 131 mg/dL (70-99) Calcium Level 9.0 mg/dL (8.5-10.1) 9.8 mg/dL (8.5-10.1) Total Bilirubin 1.4 mg/dL (0.2-1.0) 1.7 mg/dL (0.2-1.0) Aspartate Amino Transf (AST/SGOT) 18 U/L (15-37) 18 U/L (15-37) Alanine Aminotransferase (ALT/SGPT) 25 U/L (16-63) 25 U/L (16-63) Alkaline Phosphatase 86 U/L (46-116) 90 U/L (46-116) Total Protein 7.8 g/dL (6.4-8.2) 8.2 g/dL (6.4-8.2) Albumin 3.7 g/dL (3.4-5.0) 3.9 g/dL (3.4-5.0) Albumin/Globulin Ratio 0.9 (1.0-1.7) 0.9 (1.0-1.7) Urine Collection Type Unknown Urine Color Yellow Urine Clarity Clear Urine pH 5.0 Urine Specific [place] 1.025 Urine Protein Negative mg/dL (NEG-TRACE) Urine Glucose (UA) Negative mg/dL (NEG) Urine Ketones (Stick) Trace mg/dL (NEG) Urine Blood Negative (NEG) Urine Nitrite Negative (NEG) Urine Bilirubin Negative (NEG) Urine Urobilinogen Dipstick 0.2 mg/dL (0.2 mg/dL) Urine Leukocyte Esterase Negative (NEG) Urine RBC 0 /HPF (0-2) Urine WBC Occ /HPF (0-4) Urine Squamous Epithelial Cells Many /LPF Urine Bacteria 0 /HPF (0-FEW) Urine Mucus Marked /LPF Prothrombin Time 13.4 SEC (11.7-14.0) Prothromb Time International Ratio 1.1 (0.8-1.1) Activated Partial Thromboplast Time 27 SEC (24-38) Magnesium Level 1.8 mg/dL (1.8-2.4) Laboratory Tests Test 05/28/17 17:55 05/28/17 18:15 05/28/17 19:35 05/29/17 03:45 White Blood Count 6.5 x10^3/uL (4.0-11.0) 6.1 x10^3/uL (4.0-11.0) Red Blood Count 5.27 x10^6/uL (4.30-5.70) 5.41 x10^6/uL (4.30-5.70) Hemoglobin 14.2 g/dL (13.0-17.5) 14.5 g/dL (13.0-17.5) Hematocrit 43.3 % (39.0-53.0) 45.6 % (39.0-53.0) Mean Corpuscular Volume 82 fL (79-100) 84 fL (79-100) Mean Corpuscular Hemoglobin 27 pg (25-35) 27 pg (25-35) Mean Corpuscular Hemoglobin Concent 33 g/dL (31-37) 32 g/dL (31-37) Red Cell Distribution Width 16.5 % (11.5-14.5) 16.3 % (11.5-14.5) Platelet Count 135 x10^3/uL (140-400) 129 x10^3/uL (140-400) Neutrophils (%) (Auto) 69 % (31-73) 73 % (31-73) Lymphocytes (%) (Auto) 21 % (24-48) 19 % (24-48) Monocytes (%) (Auto) 9 % (0-9) 7 % (0-9) Eosinophils (%) (Auto) 1 % (0-3) 0 % (0-3) Basophils (%) (Auto) 1 % (0-3) 1 % (0-3) Neutrophils # (Auto) 4.5 x10^3uL (1.8-7.7) 4.5 x10^3uL (1.8-7.7) Lymphocytes # (Auto) 1.4 x10^3/uL (1.0-4.8) 1.1 x10^3/uL (1.0-4.8) Monocytes # (Auto) 0.6 x10^3/uL (0.0-1.1) 0.4 x10^3/uL (0.0-1.1) Eosinophils # (Auto) 0.0 x10^3/uL (0.0-0.7) 0.0 x10^3/uL (0.0-0.7) Basophils # (Auto) 0.0 x10^3/uL (0.0-0.2) 0.0 x10^3/uL (0.0-0.2) Sodium Level 140 mmol/L (136-145) 141 mmol/L (136-145) Potassium Level 3.8 mmol/L (3.5-5.1) 3.6 mmol/L (3.5-5.1) Chloride Level 103 mmol/L (98-107) 101 mmol/L (98-107) Carbon Dioxide Level 27 mmol/L (21-32) 29 mmol/L (21-32) Anion Gap 10 (6-14) 11 (6-14) Blood Urea Nitrogen 20 mg/dL (8-26) 21 mg/dL (8-26) Creatinine 0.8 mg/dL (0.7-1.3) 0.9 mg/dL (0.7-1.3) Estimated GFR (Cockcroft-Gault) 116.3 101.5 BUN/Creatinine Ratio 25 (6-20) 23 (6-20) Glucose Level 143 mg/dL (70-99) 131 mg/dL (70-99) Calcium Level 9.0 mg/dL (8.5-10.1) 9.8 mg/dL (8.5-10.1) Total Bilirubin 1.4 mg/dL (0.2-1.0) 1.7 mg/dL (0.2-1.0) Aspartate Amino Transf (AST/SGOT) 18 U/L (15-37) 18 U/L (15-37) Alanine Aminotransferase (ALT/SGPT) 25 U/L (16-63) 25 U/L (16-63) Alkaline Phosphatase 86 U/L (46-116) 90 U/L (46-116) Total Protein 7.8 g/dL (6.4-8.2) 8.2 g/dL (6.4-8.2) Albumin 3.7 g/dL (3.4-5.0) 3.9 g/dL (3.4-5.0) Albumin/Globulin Ratio 0.9 (1.0-1.7) 0.9 (1.0-1.7) Urine Collection Type Unknown Urine Color Yellow Urine Clarity Clear Urine pH 5.0 Urine Specific [place] 1.025 Urine Protein Negative mg/dL (NEG-TRACE) Urine Glucose (UA) Negative mg/dL (NEG) Urine Ketones (Stick) Trace mg/dL (NEG) Urine Blood Negative (NEG) Urine Nitrite Negative (NEG) Urine Bilirubin Negative (NEG) Urine Urobilinogen Dipstick 0.2 mg/dL (0.2 mg/dL) Urine Leukocyte Esterase Negative (NEG) Urine RBC 0 /HPF (0-2) Urine WBC Occ /HPF (0-4) Urine Squamous Epithelial Cells Many /LPF Urine Bacteria 0 /HPF (0-FEW) Urine Mucus Marked /LPF Prothrombin Time 13.4 SEC (11.7-14.0) Prothromb Time International Ratio 1.1 (0.8-1.1) Activated Partial Thromboplast Time 27 SEC (24-38) Magnesium Level 1.8 mg/dL (1.8-2.4) Assessment/Plan Assessment/Plan EVD placed ÁNGEL CAGLE MD May 29, 2017 08:50
--- NOTE | 2017-05-29 08:52 | PDOC ---
BRIEF OPERATIVE NOTE Date: May 29, 2017 Pre-Op Diagnosis hydrocephalus Post-Op Diagnosis same Procedure Performed placement of right frontal EVD Surgeon Jeimy [employer] none Anesthesia Type: Local Blood Loss 10mL Findings clear CSF under pressure Complications none apparent ÁNGEL CAGLE MD May 29, 2017 08:52
[2017-05-29] MEDS: LISINOPRIL 2.5 MG TABLET PO SCH (09:00)
[2017-05-29] MEDS: METOPROLOL TART IMMED RELEASE 50 MG TABLET. PO SCH ×2 (09:00→21:15)
--- NOTE | 2017-05-29 09:59 | PDOC ---
PROGRESS NOTES Chief Complaint Chief Complaint worsening of cerebellar hemorrhage from previous. cerebral edema, hydrocephalus CAD, now off plavix for bleed weakness, debility, Vitals Vitals Vital Signs Date Time Temp Pulse Resp B/P (MAP) Pulse Ox O2 Delivery O2 Flow Rate FiO2 05/29/17 09:36 22 100 Nasal Cannula 2.0 05/29/17 09:00 82 97/66 (76) 05/29/17 08:00 98.0 98.0 Physical Exam Physical Exam conversant, no distress, mostly oriented, no General: Alert, Oriented X3, Cooperative, No acute distress, Other (recognized me from 10 days ago) Heart: Regular rate, No murmurs Lungs: Clear Abdomen: Normal bowel sounds, Soft Extremities: No clubbing, No edema, Normal pulses Skin: No rashes, No significant lesion Labs LABS Laboratory Tests Test 05/28/17 17:55 05/28/17 18:15 05/28/17 19:35 05/29/17 03:45 White Blood Count 6.5 x10^3/uL (4.0-11.0) 6.1 x10^3/uL (4.0-11.0) Red Blood Count 5.27 x10^6/uL (4.30-5.70) 5.41 x10^6/uL (4.30-5.70) Hemoglobin 14.2 g/dL (13.0-17.5) 14.5 g/dL (13.0-17.5) Hematocrit 43.3 % (39.0-53.0) 45.6 % (39.0-53.0) Mean Corpuscular Volume 82 fL (79-100) 84 fL (79-100) Mean Corpuscular Hemoglobin 27 pg (25-35) 27 pg (25-35) Mean Corpuscular Hemoglobin Concent 33 g/dL (31-37) 32 g/dL (31-37) Red Cell Distribution Width 16.5 % (11.5-14.5) 16.3 % (11.5-14.5) Platelet Count 135 x10^3/uL (140-400) 129 x10^3/uL (140-400) Neutrophils (%) (Auto) 69 % (31-73) 73 % (31-73) Lymphocytes (%) (Auto) 21 % (24-48) 19 % (24-48) Monocytes (%) (Auto) 9 % (0-9) 7 % (0-9) Eosinophils (%) (Auto) 1 % (0-3) 0 % (0-3) Basophils (%) (Auto) 1 % (0-3) 1 % (0-3) Neutrophils # (Auto) 4.5 x10^3uL (1.8-7.7) 4.5 x10^3uL (1.8-7.7) Lymphocytes # (Auto) 1.4 x10^3/uL (1.0-4.8) 1.1 x10^3/uL (1.0-4.8) Monocytes # (Auto) 0.6 x10^3/uL (0.0-1.1) 0.4 x10^3/uL (0.0-1.1) Eosinophils # (Auto) 0.0 x10^3/uL (0.0-0.7) 0.0 x10^3/uL (0.0-0.7) Basophils # (Auto) 0.0 x10^3/uL (0.0-0.2) 0.0 x10^3/uL (0.0-0.2) Sodium Level 140 mmol/L (136-145) 141 mmol/L (136-145) Potassium Level 3.8 mmol/L (3.5-5.1) 3.6 mmol/L (3.5-5.1) Chloride Level 103 mmol/L (98-107) 101 mmol/L (98-107) Carbon Dioxide Level 27 mmol/L (21-32) 29 mmol/L (21-32) Anion Gap 10 (6-14) 11 (6-14) Blood Urea Nitrogen 20 mg/dL (8-26) 21 mg/dL (8-26) Creatinine 0.8 mg/dL (0.7-1.3) 0.9 mg/dL (0.7-1.3) Estimated GFR (Cockcroft-Gault) 116.3 101.5 BUN/Creatinine Ratio 25 (6-20) 23 (6-20) Glucose Level 143 mg/dL (70-99) 131 mg/dL (70-99) Calcium Level 9.0 mg/dL (8.5-10.1) 9.8 mg/dL (8.5-10.1) Total Bilirubin 1.4 mg/dL (0.2-1.0) 1.7 mg/dL (0.2-1.0) Aspartate Amino Transf (AST/SGOT) 18 U/L (15-37) 18 U/L (15-37) Alanine Aminotransferase (ALT/SGPT) 25 U/L (16-63) 25 U/L (16-63) Alkaline Phosphatase 86 U/L (46-116) 90 U/L (46-116) Total Protein 7.8 g/dL (6.4-8.2) 8.2 g/dL (6.4-8.2) Albumin 3.7 g/dL (3.4-5.0) 3.9 g/dL (3.4-5.0) Albumin/Globulin Ratio 0.9 (1.0-1.7) 0.9 (1.0-1.7) Urine Collection Type Unknown Urine Color Yellow Urine Clarity Clear Urine pH 5.0 Urine Specific [place] 1.025 Urine Protein Negative mg/dL (NEG-TRACE) Urine Glucose (UA) Negative mg/dL (NEG) Urine Ketones (Stick) Trace mg/dL (NEG) Urine Blood Negative (NEG) Urine Nitrite Negative (NEG) Urine Bilirubin Negative (NEG) Urine Urobilinogen Dipstick 0.2 mg/dL (0.2 mg/dL) Urine Leukocyte Esterase Negative (NEG) Urine RBC 0 /HPF (0-2) Urine WBC Occ /HPF (0-4) Urine Squamous Epithelial Cells Many /LPF Urine Bacteria 0 /HPF (0-FEW) Urine Mucus Marked /LPF Prothrombin Time 13.4 SEC (11.7-14.0) Prothromb Time International Ratio 1.1 (0.8-1.1) Activated Partial Thromboplast Time 27 SEC (24-38) Magnesium Level 1.8 mg/dL (1.8-2.4) Review of Systems Review of Systems no headache, no new complaint, feels pretty well Assessment and Plan Assessmemt and Plan maintain in ICU, may need further intervention per neurosurg, discussed with Dr. Munson Problems: Comment Review of Relevant I have reviewed the following items raul (where applicable) has been applied. Labs Laboratory Tests Test 05/28/17 17:55 05/28/17 18:15 05/28/17 19:35 05/29/17 03:45 White Blood Count 6.5 x10^3/uL (4.0-11.0) 6.1 x10^3/uL (4.0-11.0) Red Blood Count 5.27 x10^6/uL (4.30-5.70) 5.41 x10^6/uL (4.30-5.70) Hemoglobin 14.2 g/dL (13.0-17.5) 14.5 g/dL (13.0-17.5) Hematocrit 43.3 % (39.0-53.0) 45.6 % (39.0-53.0) Mean Corpuscular Volume 82 fL (79-100) 84 fL (79-100) Mean Corpuscular Hemoglobin 27 pg (25-35) 27 pg (25-35) Mean Corpuscular Hemoglobin Concent 33 g/dL (31-37) 32 g/dL (31-37) Red Cell Distribution Width 16.5 % (11.5-14.5) 16.3 % (11.5-14.5) Platelet Count 135 x10^3/uL (140-400) 129 x10^3/uL (140-400) Neutrophils (%) (Auto) 69 % (31-73) 73 % (31-73) Lymphocytes (%) (Auto) 21 % (24-48) 19 % (24-48) Monocytes (%) (Auto) 9 % (0-9) 7 % (0-9) Eosinophils (%) (Auto) 1 % (0-3) 0 % (0-3) Basophils (%) (Auto) 1 % (0-3) 1 % (0-3) Neutrophils # (Auto) 4.5 x10^3uL (1.8-7.7) 4.5 x10^3uL (1.8-7.7) Lymphocytes # (Auto) 1.4 x10^3/uL (1.0-4.8) 1.1 x10^3/uL (1.0-4.8) Monocytes # (Auto) 0.6 x10^3/uL (0.0-1.1) 0.4 x10^3/uL (0.0-1.1) Eosinophils # (Auto) 0.0 x10^3/uL (0.0-0.7) 0.0 x10^3/uL (0.0-0.7) Basophils # (Auto) 0.0 x10^3/uL (0.0-0.2) 0.0 x10^3/uL (0.0-0.2) Sodium Level 140 mmol/L (136-145) 141 mmol/L (136-145) Potassium Level 3.8 mmol/L (3.5-5.1) 3.6 mmol/L (3.5-5.1) Chloride Level 103 mmol/L (98-107) 101 mmol/L (98-107) Carbon Dioxide Level 27 mmol/L (21-32) 29 mmol/L (21-32) Anion Gap 10 (6-14) 11 (6-14) Blood Urea Nitrogen 20 mg/dL (8-26) 21 mg/dL (8-26) Creatinine 0.8 mg/dL (0.7-1.3) 0.9 mg/dL (0.7-1.3) Estimated GFR (Cockcroft-Gault) 116.3 101.5 BUN/Creatinine Ratio 25 (6-20) 23 (6-20) Glucose Level 143 mg/dL (70-99) 131 mg/dL (70-99) Calcium Level 9.0 mg/dL (8.5-10.1) 9.8 mg/dL (8.5-10.1) Total Bilirubin 1.4 mg/dL (0.2-1.0) 1.7 mg/dL (0.2-1.0) Aspartate Amino Transf (AST/SGOT) 18 U/L (15-37) 18 U/L (15-37) Alanine Aminotransferase (ALT/SGPT) 25 U/L (16-63) 25 U/L (16-63) Alkaline Phosphatase 86 U/L (46-116) 90 U/L (46-116) Total Protein 7.8 g/dL (6.4-8.2) 8.2 g/dL (6.4-8.2) Albumin 3.7 g/dL (3.4-5.0) 3.9 g/dL (3.4-5.0) Albumin/Globulin Ratio 0.9 (1.0-1.7) 0.9 (1.0-1.7) Urine Collection Type Unknown Urine Color Yellow Urine Clarity Clear Urine pH 5.0 Urine Specific [place] 1.025 Urine Protein Negative mg/dL (NEG-TRACE) Urine Glucose (UA) Negative mg/dL (NEG) Urine Ketones (Stick) Trace mg/dL (NEG) Urine Blood Negative (NEG) Urine Nitrite Negative (NEG) Urine Bilirubin Negative (NEG) Urine Urobilinogen Dipstick 0.2 mg/dL (0.2 mg/dL) Urine Leukocyte Esterase Negative (NEG) Urine RBC 0 /HPF (0-2) Urine WBC Occ /HPF (0-4) Urine Squamous Epithelial Cells Many /LPF Urine Bacteria 0 /HPF (0-FEW) Urine Mucus Marked /LPF Prothrombin Time 13.4 SEC (11.7-14.0) Prothromb Time International Ratio 1.1 (0.8-1.1) Activated Partial Thromboplast Time 27 SEC (24-38) Magnesium Level 1.8 mg/dL (1.8-2.4) Laboratory Tests Test 05/28/17 17:55 05/28/17 18:15 05/28/17 19:35 05/29/17 03:45 White Blood Count 6.5 x10^3/uL (4.0-11.0) 6.1 x10^3/uL (4.0-11.0) Red Blood Count 5.27 x10^6/uL (4.30-5.70) 5.41 x10^6/uL (4.30-5.70) Hemoglobin 14.2 g/dL (13.0-17.5) 14.5 g/dL (13.0-17.5) Hematocrit 43.3 % (39.0-53.0) 45.6 % (39.0-53.0) Mean Corpuscular Volume 82 fL (79-100) 84 fL (79-100) Mean Corpuscular Hemoglobin 27 pg (25-35) 27 pg (25-35) Mean Corpuscular Hemoglobin Concent 33 g/dL (31-37) 32 g/dL (31-37) Red Cell Distribution Width 16.5 % (11.5-14.5) 16.3 % (11.5-14.5) Platelet Count 135 x10^3/uL (140-400) 129 x10^3/uL (140-400) Neutrophils (%) (Auto) 69 % (31-73) 73 % (31-73) Lymphocytes (%) (Auto) 21 % (24-48) 19 % (24-48) Monocytes (%) (Auto) 9 % (0-9) 7 % (0-9) Eosinophils (%) (Auto) 1 % (0-3) 0 % (0-3) Basophils (%) (Auto) 1 % (0-3) 1 % (0-3) Neutrophils # (Auto) 4.5 x10^3uL (1.8-7.7) 4.5 x10^3uL (1.8-7.7) Lymphocytes # (Auto) 1.4 x10^3/uL (1.0-4.8) 1.1 x10^3/uL (1.0-4.8) Monocytes # (Auto) 0.6 x10^3/uL (0.0-1.1) 0.4 x10^3/uL (0.0-1.1) Eosinophils # (Auto) 0.0 x10^3/uL (0.0-0.7) 0.0 x10^3/uL (0.0-0.7) Basophils # (Auto) 0.0 x10^3/uL (0.0-0.2) 0.0 x10^3/uL (0.0-0.2) Sodium Level 140 mmol/L (136-145) 141 mmol/L (136-145) Potassium Level 3.8 mmol/L (3.5-5.1) 3.6 mmol/L (3.5-5.1) Chloride Level 103 mmol/L (98-107) 101 mmol/L (98-107) Carbon Dioxide Level 27 mmol/L (21-32) 29 mmol/L (21-32) Anion Gap 10 (6-14) 11 (6-14) Blood Urea Nitrogen 20 mg/dL (8-26) 21 mg/dL (8-26) Creatinine 0.8 mg/dL (0.7-1.3) 0.9 mg/dL (0.7-1.3) Estimated GFR (Cockcroft-Gault) 116.3 101.5 BUN/Creatinine Ratio 25 (6-20) 23 (6-20) Glucose Level 143 mg/dL (70-99) 131 mg/dL (70-99) Calcium Level 9.0 mg/dL (8.5-10.1) 9.8 mg/dL (8.5-10.1) Total Bilirubin 1.4 mg/dL (0.2-1.0) 1.7 mg/dL (0.2-1.0) Aspartate Amino Transf (AST/SGOT) 18 U/L (15-37) 18 U/L (15-37) Alanine Aminotransferase (ALT/SGPT) 25 U/L (16-63) 25 U/L (16-63) Alkaline Phosphatase 86 U/L (46-116) 90 U/L (46-116) Total Protein 7.8 g/dL (6.4-8.2) 8.2 g/dL (6.4-8.2) Albumin 3.7 g/dL (3.4-5.0) 3.9 g/dL (3.4-5.0) Albumin/Globulin Ratio 0.9 (1.0-1.7) 0.9 (1.0-1.7) Urine Collection Type Unknown Urine Color Yellow Urine Clarity Clear Urine pH 5.0 Urine Specific [place] 1.025 Urine Protein Negative mg/dL (NEG-TRACE) Urine Glucose (UA) Negative mg/dL (NEG) Urine Ketones (Stick) Trace mg/dL (NEG) Urine Blood Negative (NEG) Urine Nitrite Negative (NEG) Urine Bilirubin Negative (NEG) Urine Urobilinogen Dipstick 0.2 mg/dL (0.2 mg/dL) Urine Leukocyte Esterase Negative (NEG) Urine RBC 0 /HPF (0-2) Urine WBC Occ /HPF (0-4) Urine Squamous Epithelial Cells Many /LPF Urine Bacteria 0 /HPF (0-FEW) Urine Mucus Marked /LPF Prothrombin Time 13.4 SEC (11.7-14.0) Prothromb Time International Ratio 1.1 (0.8-1.1) Activated Partial Thromboplast Time 27 SEC (24-38) Magnesium Level 1.8 mg/dL (1.8-2.4) Medications Current Medications Ondansetron HCl (Zofran) 4 mg PRN Q8HRS PRN IV NAUSEA/VOMITING Last administered on 05/29/17 02:54; Start 05/28/17 at 19:00; Stop 05/29/17 at 18:59 Acetaminophen (Tylenol) 325 mg PRN Q6HRS PRN PO ARTHRITIS; Start 05/28/17 at 22 :30 Albuterol Sulfate (Ventolin Neb Soln) 2.5 mg PRN QID PRN NEB ASTHMA; Start at 22:30 Furosemide (Lasix) 40 mg DAILY PO ; Start 05/29/17 at 09:00 Lisinopril (Prinivil) 2.5 mg DAILY PO ; Start 05/29/17 at 09:00 Meclizine HCl (Antivert) 12.5 mg PRN TID PRN PO DIZZINESS; Start 05/28/17 at 22 :30 Metoprolol Tartrate (Lopressor) 50 mg BID PO ; Start 05/29/17 at 09:00 Nitroglycerin (Nitrostat) 0.4 mg PRN Q5MIN PRN SL CHEST PAIN; Start 05/28/17 at 22:30 Tamsulosin HCl (Flomax) 0.8 mg HS PO ; Start 05/29/17 at 21:00 Tramadol HCl (Ultram) 50 mg PRN Q6HRS PRN PO PAIN; Start 05/28/17 at 22:30 Atorvastatin Calcium (Lipitor) 80 mg HS PO ; Start 05/29/17 at 21:00 Potassium Chloride (Klor-Con) 20 meq DAILYWBKFT PO ; Start 05/29/17 at 08:00 Labetalol HCl (Normodyne) 20 mg PRN Q2HR PRN IVP HYPERTENSION, SEE COMMENTS; Start 05/28/17 at 22:45 Hydralazine HCl (Apresoline) 10 mg PRN Q4HRS PRN IVP ELEVATED BP, SEE COMMENTS ; Start 05/28/17 at 22:45 Fentanyl Citrate (Fentanyl 2ml Vial) 50 mcg 1X ONCE IM Last administered on 07:53; Start 05/29/17 at 07:45; Stop 05/29/17 at 07:46; Status DC Lidocaine HCl (Lidocaine HCl 2% Abboject) 100 mg STK-MED ONCE .ROUTE ; Start 05/29/17 at 07:56; Stop 05/29/17 at 07:57; Status DC Lidocaine HCl (Lidocaine HCl 2% Abboject) 100 mg 1X ONCE IV Last administered on 05/29/17t 08:01; Start 05/29/17 at 08:00; Stop 05/29/17 at 08:01; Status DC Active Scripts Active Aspirin Ec (Aspirin) 81 Mg Tablet.dr 162 Mg PO DAILYWBKFT 30 Days Lisinopril 2.5 Mg Tablet 2.5 Mg PO DAILY Furosemide 40 Mg Tablet 40 Mg PO DAILY Reported Plavix (Clopidogrel Bisulfate) 75 Mg Tablet 1 Tab PO DAILY Metoprolol Tartrate 50 Mg Tablet 1 Tab PO BID Potassium Chloride 20 Meq Tablet.er 20 Meq PO DAILY Proair Respiclick (Albuterol Sulfate) 90 Mcg Aer.pow.ba 2 Puff IH TWICE WEEKLY PRN Meclizine Hcl 12.5 Mg Tablet 1 Tab PO TID PRN NITROGLYCERIN SubLingual (Nitroglycerin) 0.4 Mg Tab.subl 0.4 Mg SL PRN Q5MIN PRN Flomax (Tamsulosin Hcl) 0.4 Mg Cap.er.24h 0.8 Mg PO HS Tramadol Hcl 50 Mg Tablet 50 Mg PO Q6H PRN Atorvastatin Calcium 80 Mg Tablet 80 Mg PO HS Albuterol Sulfate Neb Soln (Albuterol Sulfate) 2.5 Mg/3 Ml Vial.neb 2.5 Mg NEB QID PRN Tylenol (Acetaminophen) 325 Mg Tablet 1-2 Tab PO Q6HRS PRN Vitals/I & O Vital Sign - Last 24 Hours 05/28/17 05/28/17 05/28/17 05/28/17 16:50 18:00 18:30 19:00 Temp 98.5 98.5 Pulse 74 88 83 89 Resp 20 22 B/P (MAP) 121/82 (95) 130/83 (99) 123/76 (92) 132/88 (103) Pulse Ox 97 96 95 O2 Delivery Room Air Room Air Room Air 05/28/17 05/28/17 05/28/17 05/28/17 19:30 20:00 20:00 20:30 Temp 97.9 97.9 Pulse 72 84 84 90 Resp 26 B/P (MAP) 145/97 (113) 124/96 (105) 116/89 (98) Pulse Ox 97 98 O2 Delivery Room Air Room Air Room Air Room Air 05/28/17 05/28/17 05/28/17 05/28/17 20:30 21:00 21:30 22:00 Pulse 86 90 82 Resp 23 20 17 B/P (MAP) 140/95 (110) 119/82 (94) 106/69 (81) Pulse Ox 95 97 97 O2 Delivery Room Air Room Air Room Air Room Air 05/28/17 05/28/17 05/29/17 05/29/17 22:30 23:00 00:05 00:08 Temp 98.9 98.9 Pulse 86 104 85 Resp 13 30 16 B/P (MAP) 93/70 (78) 140/90 (107) 119/78 (92) Pulse Ox 96 98 99 O2 Delivery Room Air Room Air Room Air Room Air 05/29/17 05/29/17 05/29/17 05/29/17 00:30 01:00 02:00 03:00 Pulse 88 102 78 96 Resp 27 15 19 22 B/P (MAP) 110/77 (88) 112/68 (83) 123/72 (89) 118/87 (97) Pulse Ox 97 96 97 96 O2 Delivery Room Air Room Air Room Air Room Air 05/29/17 05/29/17 05/29/17 05/29/17 04:00 04:00 05:00 06:11 Pulse 96 98 84 Resp 19 23 18 B/P (MAP) 90/65 (73) 104/80 (88) 109/77 (88) Pulse Ox 96 98 96 O2 Delivery Room Air Room Air Room Air Room Air 05/29/17 05/29/17 05/29/17 05/29/17 07:00 07:53 08:00 08:00 Temp 98.0 98.0 Pulse 102 76 Resp 35 27 12 B/P (MAP) 109/77 (88) 113/75 (88) Pulse Ox 96 96 98 O2 Delivery Room Air Nasal Cannula Room Air O2 Flow Rate 2.0 05/29/17 05/29/17 05/29/17 08:01 09:00 09:36 Pulse 77 82 Resp 27 22 B/P (MAP) 119/90 97/66 (76) Pulse Ox 100 100 O2 Delivery Nasal Cannula Nasal Cannula O2 Flow Rate 2.0 2.0 Intake and Output 05/28/17 05/28/17 05/29/17 15:00 23:00 07:00 Intake Total 0 ml 0 ml Output Total 0 ml 355 ml Balance 0 ml -355 ml BHAVANI BLAS MD May 29, 2017 09:59
[2017-05-29] MEDS: FUROSEMIDE 40 MG TABLET. PO SCH (10:17)
[2017-05-29] MEDS: POTASSIUM CHLORIDE 20 MEQ TABLET.ER. PO SCH (10:17)
[2017-05-29] MEDS ORDERED: FAMOTIDINE 20 MG/2 ML VIAL IVP ONE (11:00)
[2017-05-29] MEDS: FAMOTIDINE 20 MG/2 ML VIAL IVP SCH (21:13)
[2017-05-29] MEDS: TAMSULOSIN 0.4 MG CAP.ER.24H. PO SCH (21:13)
[2017-05-29] MEDS: ATORVASTATIN CALCIUM 40 MG TABLET. PO SCH (21:14)
[2017-05-30] VITALS (23 sets, daily range): BP systolic 82–128; BP diastolic 57–93
[2017-05-30] MEDS: METOPROLOL TART IMMED RELEASE 50 MG TABLET. PO SCH ×2 (09:00→21:10)
[2017-05-30] MEDS: LISINOPRIL 2.5 MG TABLET PO SCH (09:00)
--- NOTE | 2017-05-30 10:26 | PDOC ---
PROGRESS NOTES Chief Complaint Chief Complaint worsening of cerebellar hemorrhage from previous. cerebral edema, hydrocephalus CAD, now off plavix for bleed weakness, debility, poor PO intake, dehydration History of Present Illness History of Present Illness up to chair, no appetite, s/p placement of right frontal EVD, POD #1 drain pressures are more normal today per RN BP down a little, bit, less urine output Vitals Vitals Vital Signs Date Time Temp Pulse Resp B/P (MAP) Pulse Ox O2 Delivery O2 Flow Rate FiO2 05/30/17 09:57 94 25 113/87 (96) 05/30/17 08:00 98.0 93 Room Air 98.0 05/29/17 16:00 2.0 Physical Exam Physical Exam conversant, no distress, mostly oriented, no General: Alert, Oriented X3, Cooperative, No acute distress, Other (recognized me from 10 days ago) Heart: Regular rate, No murmurs Lungs: Clear Abdomen: Normal bowel sounds, Soft Extremities: No clubbing, No edema, Normal pulses Skin: No rashes, No significant lesion Review of Systems Review of Systems headache nausea Assessment and Plan Assessmemt and Plan cont current IV fluid Problems: Comment Review of Relevant I have reviewed the following items raul (where applicable) has been applied. Labs Laboratory Tests Test 05/28/17 17:55 05/28/17 18:15 05/28/17 19:35 05/28/17 19:45 White Blood Count 6.5 x10^3/uL (4.0-11.0) Red Blood Count 5.27 x10^6/uL (4.30-5.70) Hemoglobin 14.2 g/dL (13.0-17.5) Hematocrit 43.3 % (39.0-53.0) Mean Corpuscular Volume 82 fL (79-100) Mean Corpuscular Hemoglobin 27 pg (25-35) Mean Corpuscular Hemoglobin Concent 33 g/dL (31-37) Red Cell Distribution Width 16.5 % (11.5-14.5) Platelet Count 135 x10^3/uL (140-400) Neutrophils (%) (Auto) 69 % (31-73) Lymphocytes (%) (Auto) 21 % (24-48) Monocytes (%) (Auto) 9 % (0-9) Eosinophils (%) (Auto) 1 % (0-3) Basophils (%) (Auto) 1 % (0-3) Neutrophils # (Auto) 4.5 x10^3uL (1.8-7.7) Lymphocytes # (Auto) 1.4 x10^3/uL (1.0-4.8) Monocytes # (Auto) 0.6 x10^3/uL (0.0-1.1) Eosinophils # (Auto) 0.0 x10^3/uL (0.0-0.7) Basophils # (Auto) 0.0 x10^3/uL (0.0-0.2) Sodium Level 140 mmol/L (136-145) Potassium Level 3.8 mmol/L (3.5-5.1) Chloride Level 103 mmol/L (98-107) Carbon Dioxide Level 27 mmol/L (21-32) Anion Gap 10 (6-14) Blood Urea Nitrogen 20 mg/dL (8-26) Creatinine 0.8 mg/dL (0.7-1.3) Estimated GFR (Cockcroft-Gault) 116.3 BUN/Creatinine Ratio 25 (6-20) Glucose Level 143 mg/dL (70-99) Calcium Level 9.0 mg/dL (8.5-10.1) Total Bilirubin 1.4 mg/dL (0.2-1.0) Aspartate Amino Transf (AST/SGOT) 18 U/L (15-37) Alanine Aminotransferase (ALT/SGPT) 25 U/L (16-63) Alkaline Phosphatase 86 U/L (46-116) Total Protein 7.8 g/dL (6.4-8.2) Albumin 3.7 g/dL (3.4-5.0) Albumin/Globulin Ratio 0.9 (1.0-1.7) Urine Collection Type Unknown Urine Color Yellow Urine Clarity Clear Urine pH 5.0 Urine Specific Mccausland 1.025 Urine Protein Negative mg/dL (NEG-TRACE) Urine Glucose (UA) Negative mg/dL (NEG) Urine Ketones (Stick) Trace mg/dL (NEG) Urine Blood Negative (NEG) Urine Nitrite Negative (NEG) Urine Bilirubin Negative (NEG) Urine Urobilinogen Dipstick 0.2 mg/dL (0.2 mg/dL) Urine Leukocyte Esterase Negative (NEG) Urine RBC 0 /HPF (0-2) Urine WBC Occ /HPF (0-4) Urine Squamous Epithelial Cells Many /LPF Urine Bacteria 0 /HPF (0-FEW) Urine Mucus Marked /LPF Prothrombin Time 13.4 SEC (11.7-14.0) Prothromb Time International Ratio 1.1 (0.8-1.1) Activated Partial Thromboplast Time 27 SEC (24-38) Nasal Screen MRSA (PCR) Negative (Negative) Test 05/29/17 03:45 White Blood Count 6.1 x10^3/uL (4.0-11.0) Red Blood Count 5.41 x10^6/uL (4.30-5.70) Hemoglobin 14.5 g/dL (13.0-17.5) Hematocrit 45.6 % (39.0-53.0) Mean Corpuscular Volume 84 fL (79-100) Mean Corpuscular Hemoglobin 27 pg (25-35) Mean Corpuscular Hemoglobin Concent 32 g/dL (31-37) Red Cell Distribution Width 16.3 % (11.5-14.5) Platelet Count 129 x10^3/uL (140-400) Neutrophils (%) (Auto) 73 % (31-73) Lymphocytes (%) (Auto) 19 % (24-48) Monocytes (%) (Auto) 7 % (0-9) Eosinophils (%) (Auto) 0 % (0-3) Basophils (%) (Auto) 1 % (0-3) Neutrophils # (Auto) 4.5 x10^3uL (1.8-7.7) Lymphocytes # (Auto) 1.1 x10^3/uL (1.0-4.8) Monocytes # (Auto) 0.4 x10^3/uL (0.0-1.1) Eosinophils # (Auto) 0.0 x10^3/uL (0.0-0.7) Basophils # (Auto) 0.0 x10^3/uL (0.0-0.2) Sodium Level 141 mmol/L (136-145) Potassium Level 3.6 mmol/L (3.5-5.1) Chloride Level 101 mmol/L (98-107) Carbon Dioxide Level 29 mmol/L (21-32) Anion Gap 11 (6-14) Blood Urea Nitrogen 21 mg/dL (8-26) Creatinine 0.9 mg/dL (0.7-1.3) Estimated GFR (Cockcroft-Gault) 101.5 BUN/Creatinine Ratio 23 (6-20) Glucose Level 131 mg/dL (70-99) Calcium Level 9.8 mg/dL (8.5-10.1) Magnesium Level 1.8 mg/dL (1.8-2.4) Total Bilirubin 1.7 mg/dL (0.2-1.0) Aspartate Amino Transf (AST/SGOT) 18 U/L (15-37) Alanine Aminotransferase (ALT/SGPT) 25 U/L (16-63) Alkaline Phosphatase 90 U/L (46-116) Total Protein 8.2 g/dL (6.4-8.2) Albumin 3.9 g/dL (3.4-5.0) Albumin/Globulin Ratio 0.9 (1.0-1.7) Medications Current Medications Ondansetron HCl (Zofran) 4 mg PRN Q8HRS PRN IV NAUSEA/VOMITING Last administered on 05/29/17 02:54; Start 05/28/17 at 19:00; Stop 05/29/17 at 18:59; Status DC Acetaminophen (Tylenol) 325 mg PRN Q6HRS PRN PO ARTHRITIS; Start 05/28/17 at 22 :30 Albuterol Sulfate (Ventolin Neb Soln) 2.5 mg PRN QID PRN NEB ASTHMA; Start at 22:30 Furosemide (Lasix) 40 mg DAILY PO Last administered on 05/29/17 10:17; Start at 09:00 Lisinopril (Prinivil) 2.5 mg DAILY PO ; Start 05/29/17 at 09:00 Meclizine HCl (Antivert) 12.5 mg PRN TID PRN PO DIZZINESS; Start 05/28/17 at 22 :30 Metoprolol Tartrate (Lopressor) 50 mg BID PO Last administered on 05/29/17 21: 15; Start 05/29/17 at 09:00 Nitroglycerin (Nitrostat) 0.4 mg PRN Q5MIN PRN SL CHEST PAIN; Start 05/28/17 at 22:30 Tamsulosin HCl (Flomax) 0.8 mg HS PO Last administered on 05/29/17 21:13; Start 05/29/17 at 21:00 Tramadol HCl (Ultram) 50 mg PRN Q6HRS PRN PO PAIN; Start 05/28/17 at 22:30 Atorvastatin Calcium (Lipitor) 80 mg HS PO Last administered on 05/29/17 21:14 ; Start 05/29/17 at 21:00 Potassium Chloride (Klor-Con) 20 meq DAILYWBKFT PO Last administered on 10:17; Start 05/29/17 at 08:00 Labetalol HCl (Normodyne) 20 mg PRN Q2HR PRN IVP HYPERTENSION, SEE COMMENTS; Start 05/28/17 at 22:45 Hydralazine HCl (Apresoline) 10 mg PRN Q4HRS PRN IVP ELEVATED BP, SEE COMMENTS ; Start 05/28/17 at 22:45 Fentanyl Citrate (Fentanyl 2ml Vial) 50 mcg 1X ONCE IM Last administered on 07:53; Start 05/29/17 at 07:45; Stop 05/29/17 at 07:46; Status DC Lidocaine HCl (Lidocaine HCl 2% Abboject) 100 mg STK-MED ONCE .ROUTE ; Start 05/29/17 at 07:56; Stop 05/29/17 at 07:57; Status DC Lidocaine HCl (Lidocaine HCl 2% Abboject) 100 mg 1X ONCE IV Last administered on 05/29/17 08:01; Start 05/29/17 at 08:00; Stop 05/29/17 at 08:01; Status DC Famotidine (Pepcid) 20 mg 1X ONCE IVP Last administered on 05/29/17 11:19; Start 05/29/17 at 11:00; Stop 05/29/17 at 11:02; Status DC Famotidine (Pepcid) 20 mg BID IVP Last administered on 05/29/17 21:13; Start at 21:00 Cefazolin Sodium 1 gm/Sodium Chloride 50 ml @ 100 mls/hr Q8HRS IV Last administered on 05/30/17 06:28; Start 05/29/17 at 14:00 Active Scripts Active Aspirin Ec (Aspirin) 81 Mg Tablet.dr 162 Mg PO DAILYWBKFT 30 Days Lisinopril 2.5 Mg Tablet 2.5 Mg PO DAILY Furosemide 40 Mg Tablet 40 Mg PO DAILY Reported Plavix (Clopidogrel Bisulfate) 75 Mg Tablet 1 Tab PO DAILY Metoprolol Tartrate 50 Mg Tablet 1 Tab PO BID Potassium Chloride 20 Meq Tablet.er 20 Meq PO DAILY Proair Respiclick (Albuterol Sulfate) 90 Mcg Aer.pow.ba 2 Puff IH TWICE WEEKLY PRN Meclizine Hcl 12.5 Mg Tablet 1 Tab PO TID PRN NITROGLYCERIN SubLingual (Nitroglycerin) 0.4 Mg Tab.subl 0.4 Mg SL PRN Q5MIN PRN Flomax (Tamsulosin Hcl) 0.4 Mg Cap.er.24h 0.8 Mg PO HS Tramadol Hcl 50 Mg Tablet 50 Mg PO Q6H PRN Atorvastatin Calcium 80 Mg Tablet 80 Mg PO HS Albuterol Sulfate Neb Soln (Albuterol Sulfate) 2.5 Mg/3 Ml Vial.neb 2.5 Mg NEB QID PRN Tylenol (Acetaminophen) 325 Mg Tablet 1-2 Tab PO Q6HRS PRN Vitals/I & O Vital Sign - Last 24 Hours 05/29/17 05/29/17 05/29/17 05/29/17 11:00 12:00 12:00 13:00 Temp 98.4 98.4 Pulse 86 90 86 Resp 27 14 20 B/P (MAP) 111/72 (85) 115/81 (92) 107/70 (82) Pulse Ox 99 100 99 O2 Delivery Nasal Cannula Nasal Cannula Nasal Cannula Nasal Cannula O2 Flow Rate 2.0 2.0 2.0 2.0 05/29/17 05/29/17 05/29/17 05/29/17 14:00 15:00 16:00 16:00 Temp 98.0 98.0 Pulse 96 89 90 Resp 15 32 13 B/P (MAP) 114/79 (91) 115/82 (93) 124/84 (97) Pulse Ox 99 99 98 O2 Delivery Nasal Cannula Nasal Cannula Room Air Nasal Cannula O2 Flow Rate 2.0 2.0 2.0 05/29/17 05/29/17 05/29/17 05/29/17 17:00 18:00 19:00 20:00 Pulse 96 101 101 99 Resp 22 18 23 18 B/P (MAP) 118/88 (98) 119/75 (90) 113/82 (92) 124/86 (99) Pulse Ox 97 98 98 100 O2 Delivery Room Air Room Air Room Air Room Air 05/29/17 05/29/17 05/29/17 05/29/17 20:00 20:00 21:00 21:15 Temp 98.5 98.5 Pulse 84 99 86 Resp 16 18 B/P (MAP) 133/92 (106) 124/86 (99) 124/88 Pulse Ox 100 100 O2 Delivery Room Air Room Air Room Air 05/29/17 05/29/17 05/29/17 05/29/17 22:00 23:00 23:59 23:59 Temp 98.6 98.6 Pulse 100 105 86 Resp 22 28 23 B/P (MAP) 110/74 (86) 109/77 (88) 86/65 (72) Pulse Ox 100 100 100 O2 Delivery Room Air Room Air Room Air Room Air 05/30/17 05/30/17 05/30/17 05/30/17 01:00 02:00 03:00 04:00 Pulse 76 77 77 Resp 28 23 23 B/P (MAP) 97/66 (76) 106/73 (84) 94/64 (74) Pulse Ox 100 100 100 O2 Delivery Room Air Room Air Room Air Room Air 05/30/17 05/30/17 05/30/17 05/30/17 04:00 05:00 06:00 07:00 Temp 97.7 97.7 Pulse 79 72 86 75 Resp 23 16 16 20 B/P (MAP) 92/60 (71) 95/60 (72) 116/77 (90) 107/75 (86) Pulse Ox 100 96 O2 Delivery Room Air Room Air Room Air Room Air 05/30/17 05/30/17 05/30/17 05/30/17 07:28 08:00 09:00 09:57 Temp 98.0 98.0 Pulse 82 88 94 Resp 21 32 25 B/P (MAP) 97/59 (72) 90/78 (82) 113/87 (96) Pulse Ox 93 O2 Delivery Room Air Room Air Intake and Output 05/29/17 05/29/17 05/30/17 15:00 23:00 07:00 Intake Total 100 ml 450 ml 100 ml Output Total 383 ml 249 ml 194 ml Balance -283 ml 201 ml -94 ml BHAVANI BLAS MD May 30, 2017 10:26
--- NOTE | 2017-05-30 10:28 | RAD ---
CT head without contrast 05/30/2017 Clinical indication: Follow-up placement of EVD. Comparison: Multiple prior CT head examinations most recent A1 2016, 05/28/2017 and 05/22/2017. Technique: Multiple CT axial images of the head were obtained without contrast according to standard protocol. RS Compliance Statement: One or more of the following individualized dose reduction techniques were utilized for this examination: 1. Automated exposure control 2. Adjustment of the mA and/or kV according to patient size 3. Use of iterative reconstruction technique Findings: Head: Interval placement of a right frontal approach ventriculostomy catheter with distal tip in the third ventricle there is no significant change in lateral and third ventricular distention and periventricular white matter low attenuation most prominent adjacent to the bilateral atria. There is a stable posterior fossa midline hematoma at the level of the vermis with effacement of the fourth ventricle and basilar cisterns. There is no midline shift. Impression: 1. Interval placement of right frontal approach EVD with unchanged lateral and third ventricle dilatation and periventricular white matter low-attenuation which may represent transependymal flow. 2. Stable posterior fossa hematoma with adjacent vasogenic edema and resultant mass effect with effacement of the fourth ventricle and basilar cisterns are
[2017-05-30] MEDS ORDERED: IV NORMAL SALINE 500ML BAG 500 ML IV ONE (10:30)
[2017-05-30] MEDS: FAMOTIDINE 20 MG/2 ML VIAL IVP SCH ×2 (10:42→21:09)
[2017-05-30] MEDS: POTASSIUM CHLORIDE 20 MEQ TABLET.ER. PO SCH (10:44)
[2017-05-30] MEDS: POTASSIUM CL 20MEQ D5-0.45NACL 1,000 ML IV SCH ×2 (10:45→22:03)
[2017-05-30] MEDS: FUROSEMIDE 40 MG TABLET. PO SCH (10:48)
--- NOTE | 2017-05-30 11:06 | PDOC ---
SUBJECTIVE Subjective Pt reports improved headache this AM. Denies nausea/vomiting or diplopia. OBJECTIVE Objective CT head with adequate placement of EVD with tip in third ventricle through foramen of Marquez, unchanged posterior fossa subacute hemorrhage and edema, unchanged ventriculomegaly Vital Signs Vital Signs Date Time Temp Pulse Resp B/P (MAP) Pulse Ox O2 Delivery O2 Flow Rate FiO2 05/30/17 09:57 94 25 113/87 (96) 05/30/17 09:00 88 32 90/78 (82) 05/30/17 09:00 86 90/73 05/30/17 09:00 73 90/69 05/30/17 08:00 98.0 82 21 97/59 (72) 93 Room Air 98.0 05/30/17 07:28 Room Air 05/30/17 07:00 75 20 107/75 (86) 96 Room Air 05/30/17 06:00 86 16 116/77 (90) Room Air 05/30/17 05:00 72 16 95/60 (72) Room Air 05/30/17 04:00 97.7 79 23 92/60 (71) 100 Room Air 97.7 05/30/17 04:00 Room Air 05/30/17 03:00 77 23 94/64 (74) 100 Room Air 05/30/17 02:00 77 23 106/73 (84) 100 Room Air 05/30/17 01:00 76 28 97/66 (76) 100 Room Air 05/29/17 23:59 Room Air 05/29/17 23:59 98.6 86 23 86/65 (72) 100 Room Air 98.6 05/29/17 23:00 105 28 109/77 (88) 100 Room Air 05/29/17 22:00 100 22 110/74 (86) 100 Room Air 05/29/17 21:15 86 124/88 05/29/17 21:00 99 18 124/86 (99) 100 Room Air 05/29/17 20:00 98.5 84 16 133/92 (106) 100 Room Air 98.5 05/29/17 20:00 Room Air 05/29/17 20:00 99 18 124/86 (99) 100 Room Air 05/29/17 19:00 101 23 113/82 (92) 98 Room Air 05/29/17 18:00 101 18 119/75 (90) 98 Room Air 05/29/17 17:00 96 22 118/88 (98) 97 Room Air 05/29/17 16:00 Nasal Cannula 2.0 05/29/17 16:00 98.0 90 13 124/84 (97) 98 Room Air 98.0 05/29/17 15:00 89 32 115/82 (93) 99 Nasal Cannula 2.0 05/29/17 14:00 96 15 114/79 (91) 99 Nasal Cannula 2.0 05/29/17 13:00 86 20 107/70 (82) 99 Nasal Cannula 2.0 05/29/17 12:00 Nasal Cannula 2.0 05/29/17 12:00 98.4 90 14 115/81 (92) 100 Nasal Cannula 2.0 98.4 05/29/17 11:00 86 27 111/72 (85) 99 Nasal Cannula 2.0 I & O Intake and Output 05/30/17 07:00 Intake Total 650 ml Output Total 826 ml Balance -176 ml Intake Oral 500 ml IV Total 150 ml Output Urine Total 740 ml Drainage Total 86 ml PHYSICAL EXAM Physical Exam Awake, bright and alert, NAD, oriented to self, hospital setting, not to year, speech fluent, stable surgical anisocoria, POWERS 5/5, sensation intact LT, EVD intact and functioning with clear CSF 2-5mL/hr at 20 ASSESSMENT/PLAN Assessment/Plan 66M with subacute posterior fossa hematoma and edema with resultant hydrocephalus s/p EVD placement -recent plavix administration -neurologically stable today -radiographically still with prominent ventriculomegaly and transependymal flow -lower EVD to 10cm and continue to drain carefully -may need permanent shunt but continue EVD for now given prominent and persistent radiographic findings -continue to monitor closely for neuro changes Problems: ÁNGEL CAGLE MD May 30, 2017 11:06
[2017-05-30] MEDS: traMADol 50 MG TABLET PO PRN (13:32)
[2017-05-30] MEDS ORDERED: ONDANSETRON PF 4 MG/2 ML VIAL. IV PRN (18:45)
[2017-05-30] MEDS: ACETAMINOPHEN 325 MG TABLET. PO PRN (21:08)
[2017-05-30] MEDS: ATORVASTATIN CALCIUM 40 MG TABLET. PO SCH (21:08)
[2017-05-30] MEDS: TAMSULOSIN 0.4 MG CAP.ER.24H. PO SCH (21:09)
[2017-05-31] VITALS (24 sets, daily range): BP systolic 81–134; BP diastolic 28–94
--- NOTE | 2017-05-31 01:28 | OP ---
DATE OF SURGERY: 05/29/2017 SURGEON: Farooq Cagle MD STOCK ASSOCIATE: None. ANESTHESIA: Local. PREOPERATIVE DIAGNOSIS: Hydrocephalus. POSTOPERATIVE DIAGNOSIS: Hydrocephalus. PROCEDURE: Placement of right frontal external ventricular drain. INDICATIONS FOR THE PROCEDURE: The patient is an unfortunate 66-year-old gentleman who recently suffered a posterior fossa hemorrhage. This was ____ adjacent edema with effacement of the fourth ventricle and resulted in hydrocephalus. He is becoming significantly symptomatic from this and it was felt that CSF conversion would be of benefit. He was able to provide his own consent for this procedure and informed consent was obtained. DESCRIPTION OF PROCEDURE: After informed consent was obtained, the patient was maintained in a supine position with the head of the bed elevated to approximately 30 degrees. The right frontal region was prepped and draped in the usual sterile fashion. Local anesthetic was administered to the region of Mary's point. This was approximated 2 cm anterior to the coronal suture in the midpupillary line on the right. A stab incision was made with a 15-blade scalpel and a hand-twist drill was utilized to perforate the inner and outer tables of the bone to access the cranial vault. A spinal needle was utilized to gently perforate the underlying dura and ____ a standard hermetic ventricular catheter was gently passed with the trocar in place perpendicular to the skull to ____ ventricular system. Upon access into the ventricular system, clear cerebrospinal fluid emerged under pressure. The catheter was instituted to a depth of 7 cm proximally to the level of the skin. The catheter was tunneled medially with a sharp trocar and secured to the skin with nylon suture. The stab incision was closed with nylon suture as well. The distal end of the catheter was affixed ____ connection apparatus with the distal shunt system and secured with nylon suture. The distal end of the intracranial catheter was connected to the shunt collection system in a sterile fashion. The wound was again cleaned with Betadine and dressed with 4 x 4 and Tegaderm. At the end of the procedure, the patient remained in stable condition and reported improvement of his headache and nausea and has tolerated the procedure well. There were no intraprocedural complications apparent. Following connection of the distal system, ____ was less than 10. FAROOQ CAGLE MD DR: ISAAC/porfirio JOB#: [id number] / [id number]
[2017-05-31] MEDS: POTASSIUM CHLORIDE 20 MEQ TABLET.ER. PO SCH (08:00)
[2017-05-31] MEDS: FUROSEMIDE 40 MG TABLET. PO SCH (08:49)
[2017-05-31] MEDS: FAMOTIDINE 20 MG/2 ML VIAL IVP SCH ×2 (08:49→21:00)
[2017-05-31] MEDS: POTASSIUM CL 20MEQ D5-0.45NACL 1,000 ML IV SCH ×2 (08:51→20:58)
[2017-05-31] MEDS: LISINOPRIL 2.5 MG TABLET PO SCH (08:51)
[2017-05-31] MEDS: METOPROLOL TART IMMED RELEASE 50 MG TABLET. PO SCH ×2 (09:00→20:30)
--- NOTE | 2017-05-31 09:20 | PDOC ---
SUBJECTIVE Subjective Episode of emesis reported yesterday when he changed positions and had brief excess EVD drainage. Denies significant headache or nausea this AM. Denies acute complaints. OBJECTIVE Objective EVD intact and functioning at 10cm Vital Signs Vital Signs Date Time Temp Pulse Resp B/P (MAP) Pulse Ox O2 Delivery O2 Flow Rate FiO2 05/31/17 09:00 78 14 105/67 (80) 97 Room Air 05/31/17 08:51 77 99/72 05/31/17 08:06 72 13 99/72 (81) 96 Room Air 05/31/17 07:00 97.8 65 12 88/66 (73) 94 Room Air 97.8 05/31/17 06:01 73 26 95/73 (80) 95 Room Air 05/31/17 05:04 74 16 81/64 (70) 96 Room Air 05/31/17 04:07 Room Air 05/31/17 04:03 84 20 112/81 (91) 97 Room Air 05/31/17 03:04 97.9 86 14 104/79 (87) 96 Room Air 97.9 05/31/17 01:59 67 16 110/83 (92) 98 Room Air 05/31/17 01:00 108 20 95/67 (76) 97 Room Air 05/31/17 00:12 Room Air 05/31/17 00:05 87 26 116/88 (97) 97 Room Air 05/30/17 23:05 98.4 91 13 107/78 (88) 94 Room Air 98.4 05/30/17 22:07 65 11 116/84 (95) 93 05/30/17 21:10 77 114/85 05/30/17 21:04 81 13 114/85 (95) 97 Room Air 05/30/17 20:05 71 12 100/79 (86) 97 Room Air 05/30/17 19:24 97.9 97.9 05/30/17 19:03 95.8 74 17 97/74 (82) 93 Room Air 95.8 05/30/17 18:00 84 20 107/77 (87) 98 Room Air 05/30/17 17:00 72 15 114/74 (87) 97 Room Air 05/30/17 16:00 98.0 84 19 128/82 (97) 97 Room Air 98.0 05/30/17 16:00 Room Air 05/30/17 15:00 88 16 114/72 (86) 99 Room Air 05/30/17 14:32 Room Air 05/30/17 14:00 80 20 123/67 (85) 98 Room Air 05/30/17 13:32 94 Room Air 2.0 05/30/17 13:00 80 27 110/93 (99) 97 Room Air 05/30/17 12:00 98.3 78 14 82/60 (67) 94 Room Air 98.3 05/30/17 12:00 Room Air 05/30/17 11:00 87 14 124/57 (79) 97 Room Air 05/30/17 09:57 94 25 113/87 (96) I & O Intake and Output 05/31/17 07:00 Intake Total 2917 ml Output Total 887 ml Balance 2030 ml Intake Oral 175 ml IV Total 500 ml Blood Product IV Normal Saline Flush 1742 ml Other 500 ml Output Urine Total 722 ml Emesis 1 ml Drainage Total 164 ml # Bowel Movements 1 PHYSICAL EXAM Physical Exam AAO to self, location, not to year, POWERS 5/5, sensation intact LT, EVD intact/ functioning, clear CSF ASSESSMENT/PLAN Assessment/Plan 66M hydrocephalus due to subacute posterior fossa hemorrhage/edema -neurologically stable -continue CSF diversion -repeat CT head tomorrow -anticipate permanent shunt placement as this point - likely next week -monitor for changes Problems: ÁNGEL CAGLE MD May 31, 2017 09:20
[2017-05-31] MEDS: ACETAMINOPHEN 325 MG TABLET. PO PRN (12:05)
--- NOTE | 2017-05-31 13:39 | PDOC ---
PROGRESS NOTES Chief Complaint Chief Complaint worsening of cerebellar hemorrhage from previous. cerebral edema, hydrocephalus CAD, now off plavix for bleed weakness, debility, poor PO intake, dehydration History of Present Illness History of Present Illness up to chair, no appetite, s/p placement of right frontal EVD, POD #2 drain pressures doing well may need shunt, plan obs until NS to proceed Vitals Vitals Vital Signs Date Time Temp Pulse Resp B/P (MAP) Pulse Ox O2 Delivery O2 Flow Rate FiO2 05/31/17 13:00 97.9 82 14 87/54 (65) 95 Room Air 97.9 05/30/17 13:32 2.0 Physical Exam Physical Exam conversant, no distress, mostly oriented, no General: Alert, Oriented X3, Cooperative, No acute distress, Other (recognized me from 10 days ago) Heart: Regular rate, No murmurs Lungs: Clear Abdomen: Normal bowel sounds, Soft Extremities: No clubbing, No edema, Normal pulses Skin: No rashes, No significant lesion Labs LABS check tomorrow Review of Systems Review of Systems no n.v/d Comment Review of Relevant I have reviewed the following items raul (where applicable) has been applied. Medications Current Medications Ondansetron HCl (Zofran) 4 mg PRN Q8HRS PRN IV NAUSEA/VOMITING Last administered on 05/29/17 02:54; Start 05/28/17 at 19:00; Stop 05/29/17 at 18:59; Status DC Acetaminophen (Tylenol) 325 mg PRN Q6HRS PRN PO ARTHRITIS Last administered on 05/31/17 12:05; Start 05/28/17 at 22:30 Albuterol Sulfate (Ventolin Neb Soln) 2.5 mg PRN QID PRN NEB ASTHMA; Start at 22:30 Furosemide (Lasix) 40 mg DAILY PO Last administered on 05/31/17 08:49; Start at 09:00 Lisinopril (Prinivil) 2.5 mg DAILY PO ; Start 05/29/17 at 09:00 Meclizine HCl (Antivert) 12.5 mg PRN TID PRN PO DIZZINESS; Start 05/28/17 at 22 :30 Metoprolol Tartrate (Lopressor) 50 mg BID PO Last administered on 05/30/17 21: 10; Start 05/29/17 at 09:00 Nitroglycerin (Nitrostat) 0.4 mg PRN Q5MIN PRN SL CHEST PAIN; Start 05/28/17 at 22:30 Tamsulosin HCl (Flomax) 0.8 mg HS PO Last administered on 05/30/17 21:09; Start 05/29/17 at 21:00 Tramadol HCl (Ultram) 50 mg PRN Q6HRS PRN PO PAIN Last administered on 13:32; Start 05/28/17 at 22:30 Atorvastatin Calcium (Lipitor) 80 mg HS PO Last administered on 05/30/17 21:08 ; Start 05/29/17 at 21:00 Potassium Chloride (Klor-Con) 20 meq DAILYWBKFT PO Last administered on 08:00; Start 05/29/17 at 08:00 Labetalol HCl (Normodyne) 20 mg PRN Q2HR PRN IVP HYPERTENSION, SEE COMMENTS; Start 05/28/17 at 22:45 Hydralazine HCl (Apresoline) 10 mg PRN Q4HRS PRN IVP ELEVATED BP, SEE COMMENTS ; Start 05/28/17 at 22:45 Fentanyl Citrate (Fentanyl 2ml Vial) 50 mcg 1X ONCE IM Last administered on 07:53; Start 05/29/17 at 07:45; Stop 05/29/17 at 07:46; Status DC Lidocaine HCl (Lidocaine HCl 2% Abboject) 100 mg STK-MED ONCE .ROUTE ; Start 05/29/17 at 07:56; Stop 05/29/17 at 07:57; Status DC Lidocaine HCl (Lidocaine HCl 2% Abboject) 100 mg 1X ONCE IV Last administered on 05/29/17 08:01; Start 05/29/17 at 08:00; Stop 05/29/17 at 08:01; Status DC Famotidine (Pepcid) 20 mg 1X ONCE IVP Last administered on 05/29/17 11:19; Start 05/29/17 at 11:00; Stop 05/29/17 at 11:02; Status DC Famotidine (Pepcid) 20 mg BID IVP Last administered on 05/31/17 08:49; Start at 21:00 Cefazolin Sodium 1 gm/Sodium Chloride 50 ml @ 100 mls/hr Q8HRS IV Last administered on 05/31/17 05:55; Start 05/29/17 at 14:00 Potassium Chloride/Dextrose/ Sod Cl 1,000 ml @ 100 mls/hr Q10H IV Last administered on 05/31/17 08:51; Start 05/30/17 at 10:30 Sodium Chloride 500 ml @ 500 mls/hr 1X ONCE IV Last administered on 05/30/17 10:44; Start 05/30/17 at 10:30; Stop 05/30/17 at 11:29; Status DC Ondansetron HCl (Zofran) 4 mg PRN Q6HRS PRN IV NAUSEA/VOMITING Last administered on 05/30/17 18:46; Start 05/30/17 at 18:45 Active Scripts Active Aspirin Ec (Aspirin) 81 Mg Tablet.dr 162 Mg PO DAILYWBKFT 30 Days Lisinopril 2.5 Mg Tablet 2.5 Mg PO DAILY Furosemide 40 Mg Tablet 40 Mg PO DAILY Reported Plavix (Clopidogrel Bisulfate) 75 Mg Tablet 1 Tab PO DAILY Metoprolol Tartrate 50 Mg Tablet 1 Tab PO BID Potassium Chloride 20 Meq Tablet.er 20 Meq PO DAILY Proair Respiclick (Albuterol Sulfate) 90 Mcg Aer.pow.ba 2 Puff IH TWICE WEEKLY PRN Meclizine Hcl 12.5 Mg Tablet 1 Tab PO TID PRN NITROGLYCERIN SubLingual (Nitroglycerin) 0.4 Mg Tab.subl 0.4 Mg SL PRN Q5MIN PRN Flomax (Tamsulosin Hcl) 0.4 Mg Cap.er.24h 0.8 Mg PO HS Tramadol Hcl 50 Mg Tablet 50 Mg PO Q6H PRN Atorvastatin Calcium 80 Mg Tablet 80 Mg PO HS Albuterol Sulfate Neb Soln (Albuterol Sulfate) 2.5 Mg/3 Ml Vial.neb 2.5 Mg NEB QID PRN Tylenol (Acetaminophen) 325 Mg Tablet 1-2 Tab PO Q6HRS PRN Vitals/I & O Vital Sign - Last 24 Hours 05/30/17 05/30/17 05/30/17 05/30/17 14:00 14:32 15:00 16:00 Pulse 80 88 Resp 20 16 B/P (MAP) 123/67 (85) 114/72 (86) Pulse Ox 98 99 O2 Delivery Room Air Room Air Room Air Room Air 05/30/17 05/30/17 05/30/17 05/30/17 16:00 17:00 18:00 19:03 Temp 98.0 95.8 98.0 95.8 Pulse 84 72 84 74 Resp 19 15 20 17 B/P (MAP) 128/82 (97) 114/74 (87) 107/77 (87) 97/74 (82) Pulse Ox 97 97 98 93 O2 Delivery Room Air Room Air Room Air Room Air 05/30/17 05/30/17 05/30/17 05/30/17 19:24 20:05 21:04 21:10 Temp 97.9 97.9 Pulse 71 81 77 Resp 12 13 B/P (MAP) 100/79 (86) 114/85 (95) 114/85 Pulse Ox 97 97 O2 Delivery Room Air Room Air 05/30/17 05/30/17 05/31/17 05/31/17 22:07 23:05 00:05 00:12 Temp 98.4 98.4 Pulse 65 91 87 Resp 11 13 26 B/P (MAP) 116/84 (95) 107/78 (88) 116/88 (97) Pulse Ox 93 94 97 O2 Delivery Room Air Room Air Room Air 05/31/17 05/31/17 05/31/17 05/31/17 01:00 01:59 03:04 04:03 Temp 97.9 97.9 Pulse 108 67 86 84 Resp 20 16 14 20 B/P (MAP) 95/67 (76) 110/83 (92) 104/79 (87) 112/81 (91) Pulse Ox 97 98 96 97 O2 Delivery Room Air Room Air Room Air Room Air 05/31/17 05/31/17 05/31/17 05/31/17 04:07 05:04 06:01 07:00 Temp 97.8 97.8 Pulse 74 73 65 Resp 16 26 12 B/P (MAP) 81/64 (70) 95/73 (80) 88/66 (73) Pulse Ox 96 95 94 O2 Delivery Room Air Room Air Room Air Room Air 05/31/17 05/31/17 05/31/17 05/31/17 08:00 08:06 08:51 09:00 Pulse 72 77 78 Resp 13 14 B/P (MAP) 99/72 (81) 99/72 105/67 (80) Pulse Ox 96 97 O2 Delivery Room Air Room Air Room Air 05/31/17 05/31/17 05/31/17 05/31/17 10:08 11:00 12:04 13:00 Temp 97.9 97.9 97.9 97.9 Pulse 69 88 83 82 Resp 14 15 17 14 B/P (MAP) 82/56 (65) 108/78 (88) 102/28 (52) 87/54 (65) Pulse Ox 97 98 97 95 O2 Delivery Room Air Room Air Room Air Room Air Intake and Output 05/30/17 05/30/17 05/31/17 15:00 23:00 07:00 Intake Total 1125 ml 50 ml 1742 ml Output Total 270 ml 444 ml 179 ml Balance 855 ml -394 ml 1563 ml BHAVANI BLAS MD May 31, 2017 13:39
[2017-05-31] MEDS: ATORVASTATIN CALCIUM 40 MG TABLET. PO SCH (20:30)
[2017-05-31] MEDS: TAMSULOSIN 0.4 MG CAP.ER.24H. PO SCH (20:30)
[2017-06-01] VITALS (25 sets, daily range): BP systolic 87–159; BP diastolic 60–99
[2017-06-01] MEDS ORDERED: HALOPERIDOL LACTATE 5 MG/ML VIAL. IVP ONE ×2 (04:00→04:30)
[2017-06-01] MEDS: HALOPERIDOL LACTATE 5 MG/ML VIAL. IVP PRN ×3 (06:50→22:38)
[2017-06-01] MEDS: POTASSIUM CHLORIDE 20 MEQ TABLET.ER. PO SCH (08:58)
[2017-06-01] MEDS: FAMOTIDINE 20 MG/2 ML VIAL IVP SCH ×2 (08:58→21:02)
[2017-06-01] MEDS: METOPROLOL TART IMMED RELEASE 50 MG TABLET. PO SCH ×2 (08:59→21:02)
[2017-06-01] MEDS: LISINOPRIL 2.5 MG TABLET PO SCH (08:59)
[2017-06-01] MEDS: POTASSIUM CL 20MEQ D5-0.45NACL 1,000 ML IV SCH ×2 (09:00→12:30)
[2017-06-01] MEDS: FUROSEMIDE 40 MG TABLET. PO SCH (09:01)
[2017-06-01 09:35] LABS: ALBUMIN 3.3 g/dL (3.4-5.0); ALBUMIN/GLOBULIN RATIO 0.9 (1.0-1.7); CREATININE 0.8 mg/dL (0.7-1.3); GFR 116.3; POTASSIUM 3.3 mmol/L (3.5-5.1); TOTAL BILIRUBIN 1.4 mg/dL (0.2-1.0); TOTAL PROTEIN 6.9 g/dL (6.4-8.2)
[2017-06-01 09:37] LABS: BASO % 1 % (0-3); EOS % 2 % (0-3); HEMATOCRIT 41.1 % (39.0-53.0); HEMOGLOBIN 13.1 g/dL (13.0-17.5); LYMPH % 21 % (24-48); MEAN CORPUSCULAR HEMOGLOBIN 27 pg (25-35); MEAN CORPUSCULAR HGB CONC 32 g/dL (31-37); MEAN CORPUSCULAR VOLUME 84 fL (79-100); MONO % 9 % (0-9); NEUT % 68 % (31-73); PLATELET COUNT 106 x10^3/uL (140-400); RED BLOOD COUNT 4.91 x10^6/uL (4.30-5.70); RED CELL DISTRIBUTION WIDTH 16.2 % (11.5-14.5); WHITE BLOOD COUNT 4.6 x10^3/uL (4.0-11.0)
--- NOTE | 2017-06-01 11:50 | PDOC ---
SUBJECTIVE Subjective Pt combative. Guards at bedside. AA, NAD, POWERS OBJECTIVE Vital Signs Vital Signs Date Time Temp Pulse Resp B/P (MAP) Pulse Ox O2 Delivery O2 Flow Rate FiO2 06/01/17 11:07 98.4 75 15 105/72 (83) 100 Room Air 98.4 06/01/17 10:05 88 14 100/62 (75) 99 Room Air 06/01/17 09:21 97 20 128/74 (92) 96 Room Air 06/01/17 08:59 86 117/76 06/01/17 08:59 86 117/76 06/01/17 08:27 96 26 117/76 (90) 97 Room Air 06/01/17 08:00 Room Air 2.0 06/01/17 07:00 97.8 95 21 149/95 (113) 93 Room Air 97.8 06/01/17 05:59 70 14 96/66 (76) Room Air 06/01/17 05:00 70 13 102/74 (83) Room Air 06/01/17 04:07 97.9 87 17 107/70 (82) Room Air 97.9 06/01/17 04:02 Room Air 06/01/17 03:01 70 159/99 (119) Room Air 06/01/17 02:00 70 15 125/89 (101) 96 Room Air 06/01/17 01:00 82 16 109/83 (92) 98 Room Air 06/01/17 00:00 78 15 110/84 (93) 96 Room Air 06/01/17 00:00 Room Air 05/31/17 23:01 87 21 116/86 (96) 97 Room Air 05/31/17 22:00 88 20 110/85 (93) 98 Room Air 05/31/17 21:07 94 20 116/83 (94) 98 Room Air 05/31/17 20:30 101 113/85 05/31/17 20:09 91 21 113/85 (94) 97 Room Air 05/31/17 19:04 98.0 92 15 124/85 (98) 99 Room Air 98.0 05/31/17 18:00 84 20 108/64 (79) 94 Room Air 05/31/17 17:04 71 12 115/79 (91) 96 Room Air 05/31/17 16:00 Room Air 2.0 05/31/17 16:00 98.0 104 12 134/94 (107) 95 Room Air 98.0 05/31/17 15:19 110 15 116/88 (97) 94 Room Air 05/31/17 14:00 84 12 109/86 (94) 95 Room Air 05/31/17 13:00 97.9 82 14 87/54 (65) 95 Room Air 97.9 05/31/17 12:04 83 17 102/28 (52) 97 Room Air 05/31/17 12:00 Room Air I & O Intake and Output 06/01/17 07:00 Intake Total 2813 ml Output Total 3051 ml Balance -238 ml Intake Oral 450 ml IV Total 2363 ml Output Urine Total 2930 ml Drainage Total 95 ml Other 26 ml # Bowel Movements 1 PHYSICAL EXAM Physical Exam AA, NAD, calm presently, POWERS, EVD intact ASSESSMENT/PLAN Assessment/Plan 66M with hydrocephalus s/p EVD -CT head pending -tentative shunting next pending result and ability to wean Problems: COMMENT Lab Laboratory Tests Test 06/01/17 09:00 White Blood Count 4.6 x10^3/uL (4.0-11.0) Red Blood Count 4.91 x10^6/uL (4.30-5.70) Hemoglobin 13.1 g/dL (13.0-17.5) Hematocrit 41.1 % (39.0-53.0) Mean Corpuscular Volume 84 fL (79-100) Mean Corpuscular Hemoglobin 27 pg (25-35) Mean Corpuscular Hemoglobin Concent 32 g/dL (31-37) Red Cell Distribution Width 16.2 % (11.5-14.5) Platelet Count 106 x10^3/uL (140-400) Neutrophils (%) (Auto) 68 % (31-73) Lymphocytes (%) (Auto) 21 % (24-48) Monocytes (%) (Auto) 9 % (0-9) Eosinophils (%) (Auto) 2 % (0-3) Basophils (%) (Auto) 1 % (0-3) Neutrophils # (Auto) 3.2 x10^3uL (1.8-7.7) Lymphocytes # (Auto) 1.0 x10^3/uL (1.0-4.8) Monocytes # (Auto) 0.4 x10^3/uL (0.0-1.1) Eosinophils # (Auto) 0.1 x10^3/uL (0.0-0.7) Basophils # (Auto) 0.0 x10^3/uL (0.0-0.2) Sodium Level 140 mmol/L (136-145) Potassium Level 3.3 mmol/L (3.5-5.1) Chloride Level 104 mmol/L (98-107) Carbon Dioxide Level 25 mmol/L (21-32) Anion Gap 11 (6-14) Blood Urea Nitrogen 10 mg/dL (8-26) Creatinine 0.8 mg/dL (0.7-1.3) Estimated GFR (Cockcroft-Gault) 116.3 BUN/Creatinine Ratio 13 (6-20) Glucose Level 167 mg/dL (70-99) Calcium Level 9.0 mg/dL (8.5-10.1) Total Bilirubin 1.4 mg/dL (0.2-1.0) Aspartate Amino Transf (AST/SGOT) 18 U/L (15-37) Alanine Aminotransferase (ALT/SGPT) 20 U/L (16-63) Alkaline Phosphatase 78 U/L (46-116) Total Protein 6.9 g/dL (6.4-8.2) Albumin 3.3 g/dL (3.4-5.0) Albumin/Globulin Ratio 0.9 (1.0-1.7) ÁNGEL CAGLE MD Jun 01, 2017 11:50
--- NOTE | 2017-06-01 12:25 | PDOC ---
PROGRESS NOTES Chief Complaint Chief Complaint worsening of cerebellar hemorrhage from previous. cerebral edema, hydrocephalus CAD, now off plavix for bleed weakness, debility, poor PO intake, dehydration History of Present Illness History of Present Illness up to chair, no appetite, s/p placement of right frontal EVD, POD #3 drain pressures doing well may need shunt, plan obs until NS to proceed Vitals Vitals Vital Signs Date Time Temp Pulse Resp B/P (MAP) Pulse Ox O2 Delivery O2 Flow Rate FiO2 06/01/17 11:07 98.4 75 15 105/72 (83) 100 Room Air 98.4 06/01/17 08:00 2.0 Physical Exam Physical Exam conversant, no distress, mostly oriented, no General: Alert, Oriented X3, Cooperative, No acute distress, Other (recognized me from 10 days ago) Heart: Regular rate, No murmurs Lungs: Clear Abdomen: Normal bowel sounds, Soft Extremities: No clubbing, No edema, Normal pulses Skin: No rashes, No significant lesion Labs LABS Laboratory Tests Test 06/01/17 09:00 White Blood Count 4.6 x10^3/uL (4.0-11.0) Red Blood Count 4.91 x10^6/uL (4.30-5.70) Hemoglobin 13.1 g/dL (13.0-17.5) Hematocrit 41.1 % (39.0-53.0) Mean Corpuscular Volume 84 fL (79-100) Mean Corpuscular Hemoglobin 27 pg (25-35) Mean Corpuscular Hemoglobin Concent 32 g/dL (31-37) Red Cell Distribution Width 16.2 % (11.5-14.5) Platelet Count 106 x10^3/uL (140-400) Neutrophils (%) (Auto) 68 % (31-73) Lymphocytes (%) (Auto) 21 % (24-48) Monocytes (%) (Auto) 9 % (0-9) Eosinophils (%) (Auto) 2 % (0-3) Basophils (%) (Auto) 1 % (0-3) Neutrophils # (Auto) 3.2 x10^3uL (1.8-7.7) Lymphocytes # (Auto) 1.0 x10^3/uL (1.0-4.8) Monocytes # (Auto) 0.4 x10^3/uL (0.0-1.1) Eosinophils # (Auto) 0.1 x10^3/uL (0.0-0.7) Basophils # (Auto) 0.0 x10^3/uL (0.0-0.2) Sodium Level 140 mmol/L (136-145) Potassium Level 3.3 mmol/L (3.5-5.1) Chloride Level 104 mmol/L (98-107) Carbon Dioxide Level 25 mmol/L (21-32) Anion Gap 11 (6-14) Blood Urea Nitrogen 10 mg/dL (8-26) Creatinine 0.8 mg/dL (0.7-1.3) Estimated GFR (Cockcroft-Gault) 116.3 BUN/Creatinine Ratio 13 (6-20) Glucose Level 167 mg/dL (70-99) Calcium Level 9.0 mg/dL (8.5-10.1) Total Bilirubin 1.4 mg/dL (0.2-1.0) Aspartate Amino Transf (AST/SGOT) 18 U/L (15-37) Alanine Aminotransferase (ALT/SGPT) 20 U/L (16-63) Alkaline Phosphatase 78 U/L (46-116) Total Protein 6.9 g/dL (6.4-8.2) Albumin 3.3 g/dL (3.4-5.0) Albumin/Globulin Ratio 0.9 (1.0-1.7) Review of Systems Review of Systems confused this AM, agitated, now guards in room to assist Assessment and Plan Assessmemt and Plan 1:1 started for agitation, may withdraw if guards present or able to assist, Haldol given, Neurosurg wants to avoid ativan, as neuro check are important going forward Problems: Comment Review of Relevant I have reviewed the following items raul (where applicable) has been applied. Labs Laboratory Tests Test 06/01/17 09:00 White Blood Count 4.6 x10^3/uL (4.0-11.0) Red Blood Count 4.91 x10^6/uL (4.30-5.70) Hemoglobin 13.1 g/dL (13.0-17.5) Hematocrit 41.1 % (39.0-53.0) Mean Corpuscular Volume 84 fL (79-100) Mean Corpuscular Hemoglobin 27 pg (25-35) Mean Corpuscular Hemoglobin Concent 32 g/dL (31-37) Red Cell Distribution Width 16.2 % (11.5-14.5) Platelet Count 106 x10^3/uL (140-400) Neutrophils (%) (Auto) 68 % (31-73) Lymphocytes (%) (Auto) 21 % (24-48) Monocytes (%) (Auto) 9 % (0-9) Eosinophils (%) (Auto) 2 % (0-3) Basophils (%) (Auto) 1 % (0-3) Neutrophils # (Auto) 3.2 x10^3uL (1.8-7.7) Lymphocytes # (Auto) 1.0 x10^3/uL (1.0-4.8) Monocytes # (Auto) 0.4 x10^3/uL (0.0-1.1) Eosinophils # (Auto) 0.1 x10^3/uL (0.0-0.7) Basophils # (Auto) 0.0 x10^3/uL (0.0-0.2) Sodium Level 140 mmol/L (136-145) Potassium Level 3.3 mmol/L (3.5-5.1) Chloride Level 104 mmol/L (98-107) Carbon Dioxide Level 25 mmol/L (21-32) Anion Gap 11 (6-14) Blood Urea Nitrogen 10 mg/dL (8-26) Creatinine 0.8 mg/dL (0.7-1.3) Estimated GFR (Cockcroft-Gault) 116.3 BUN/Creatinine Ratio 13 (6-20) Glucose Level 167 mg/dL (70-99) Calcium Level 9.0 mg/dL (8.5-10.1) Total Bilirubin 1.4 mg/dL (0.2-1.0) Aspartate Amino Transf (AST/SGOT) 18 U/L (15-37) Alanine Aminotransferase (ALT/SGPT) 20 U/L (16-63) Alkaline Phosphatase 78 U/L (46-116) Total Protein 6.9 g/dL (6.4-8.2) Albumin 3.3 g/dL (3.4-5.0) Albumin/Globulin Ratio 0.9 (1.0-1.7) Laboratory Tests Test 06/01/17 09:00 White Blood Count 4.6 x10^3/uL (4.0-11.0) Red Blood Count 4.91 x10^6/uL (4.30-5.70) Hemoglobin 13.1 g/dL (13.0-17.5) Hematocrit 41.1 % (39.0-53.0) Mean Corpuscular Volume 84 fL (79-100) Mean Corpuscular Hemoglobin 27 pg (25-35) Mean Corpuscular Hemoglobin Concent 32 g/dL (31-37) Red Cell Distribution Width 16.2 % (11.5-14.5) Platelet Count 106 x10^3/uL (140-400) Neutrophils (%) (Auto) 68 % (31-73) Lymphocytes (%) (Auto) 21 % (24-48) Monocytes (%) (Auto) 9 % (0-9) Eosinophils (%) (Auto) 2 % (0-3) Basophils (%) (Auto) 1 % (0-3) Neutrophils # (Auto) 3.2 x10^3uL (1.8-7.7) Lymphocytes # (Auto) 1.0 x10^3/uL (1.0-4.8) Monocytes # (Auto) 0.4 x10^3/uL (0.0-1.1) Eosinophils # (Auto) 0.1 x10^3/uL (0.0-0.7) Basophils # (Auto) 0.0 x10^3/uL (0.0-0.2) Sodium Level 140 mmol/L (136-145) Potassium Level 3.3 mmol/L (3.5-5.1) Chloride Level 104 mmol/L (98-107) Carbon Dioxide Level 25 mmol/L (21-32) Anion Gap 11 (6-14) Blood Urea Nitrogen 10 mg/dL (8-26) Creatinine 0.8 mg/dL (0.7-1.3) Estimated GFR (Cockcroft-Gault) 116.3 BUN/Creatinine Ratio 13 (6-20) Glucose Level 167 mg/dL (70-99) Calcium Level 9.0 mg/dL (8.5-10.1) Total Bilirubin 1.4 mg/dL (0.2-1.0) Aspartate Amino Transf (AST/SGOT) 18 U/L (15-37) Alanine Aminotransferase (ALT/SGPT) 20 U/L (16-63) Alkaline Phosphatase 78 U/L (46-116) Total Protein 6.9 g/dL (6.4-8.2) Albumin 3.3 g/dL (3.4-5.0) Albumin/Globulin Ratio 0.9 (1.0-1.7) Medications Current Medications Ondansetron HCl (Zofran) 4 mg PRN Q8HRS PRN IV NAUSEA/VOMITING Last administered on 05/29/17 02:54; Start 05/28/17 at 19:00; Stop 05/29/17 at 18:59; Status DC Acetaminophen (Tylenol) 325 mg PRN Q6HRS PRN PO ARTHRITIS Last administered on 05/31/17 12:05; Start 05/28/17 at 22:30 Albuterol Sulfate (Ventolin Neb Soln) 2.5 mg PRN QID PRN NEB ASTHMA; Start at 22:30 Furosemide (Lasix) 40 mg DAILY PO Last administered on 06/01/17 09:01; Start at 09:00 Lisinopril (Prinivil) 2.5 mg DAILY PO Last administered on 06/01/17 08:59; Start 05/29/17 at 09:00 Meclizine HCl (Antivert) 12.5 mg PRN TID PRN PO DIZZINESS; Start 05/28/17 at 22 :30 Metoprolol Tartrate (Lopressor) 50 mg BID PO Last administered on 06/01/17 08: 59; Start 05/29/17 at 09:00 Nitroglycerin (Nitrostat) 0.4 mg PRN Q5MIN PRN SL CHEST PAIN; Start 05/28/17 at 22:30 Tamsulosin HCl (Flomax) 0.8 mg HS PO Last administered on 05/31/17 20:30; Start 05/29/17 at 21:00 Tramadol HCl (Ultram) 50 mg PRN Q6HRS PRN PO PAIN Last administered on 13:32; Start 05/28/17 at 22:30 Atorvastatin Calcium (Lipitor) 80 mg HS PO Last administered on 05/31/17 20:30 ; Start 05/29/17 at 21:00 Potassium Chloride (Klor-Con) 20 meq DAILYWBKFT PO Last administered on 08:58; Start 05/29/17 at 08:00 Labetalol HCl (Normodyne) 20 mg PRN Q2HR PRN IVP HYPERTENSION, SEE COMMENTS; Start 05/28/17 at 22:45 Hydralazine HCl (Apresoline) 10 mg PRN Q4HRS PRN IVP ELEVATED BP, SEE COMMENTS ; Start 05/28/17 at 22:45 Fentanyl Citrate (Fentanyl 2ml Vial) 50 mcg 1X ONCE IM Last administered on 07:53; Start 05/29/17 at 07:45; Stop 05/29/17 at 07:46; Status DC Lidocaine HCl (Lidocaine HCl 2% Abboject) 100 mg STK-MED ONCE .ROUTE ; Start 05/29/17 at 07:56; Stop 05/29/17 at 07:57; Status DC Lidocaine HCl (Lidocaine HCl 2% Abboject) 100 mg 1X ONCE IV Last administered on 05/29/17 08:01; Start 05/29/17 at 08:00; Stop 05/29/17 at 08:01; Status DC Famotidine (Pepcid) 20 mg 1X ONCE IVP Last administered on 05/29/17 11:19; Start 05/29/17 at 11:00; Stop 05/29/17 at 11:02; Status DC Famotidine (Pepcid) 20 mg BID IVP Last administered on 06/01/17 08:58; Start at 21:00 Cefazolin Sodium 1 gm/Sodium Chloride 50 ml @ 100 mls/hr Q8HRS IV Last administered on 06/01/17 06:05; Start 05/29/17 at 14:00 Potassium Chloride/Dextrose/ Sod Cl 1,000 ml @ 100 mls/hr Q10H IV Last administered on 06/01/17 09:00; Start 05/30/17 at 10:30 Sodium Chloride 500 ml @ 500 mls/hr 1X ONCE IV Last administered on 05/30/17 10:44; Start 05/30/17 at 10:30; Stop 05/30/17 at 11:29; Status DC Ondansetron HCl (Zofran) 4 mg PRN Q6HRS PRN IV NAUSEA/VOMITING Last administered on 05/30/17 18:46; Start 05/30/17 at 18:45 Haloperidol Lactate (Haldol) 2 mg 1X ONCE IVP Last administered on 06/01/17 03 :48; Start 06/01/17 at 04:00; Stop 06/01/17 at 04:01; Status DC Haloperidol Lactate (Haldol) 5 mg 1X ONCE IVP Last administered on 06/01/17 04 :23; Start 06/01/17 at 04:30; Stop 06/01/17 at 04:31; Status DC Haloperidol Lactate (Haldol) 5 mg PRN Q4HRS PRN IVP ANXIETY / AGITATION Last administered on 06/01/17 06:50; Start 06/01/17 at 04:30 Active Scripts Active Aspirin Ec (Aspirin) 81 Mg Tablet.dr 162 Mg PO DAILYWBKFT 30 Days Lisinopril 2.5 Mg Tablet 2.5 Mg PO DAILY Furosemide 40 Mg Tablet 40 Mg PO DAILY Reported Plavix (Clopidogrel Bisulfate) 75 Mg Tablet 1 Tab PO DAILY Metoprolol Tartrate 50 Mg Tablet 1 Tab PO BID Potassium Chloride 20 Meq Tablet.er 20 Meq PO DAILY Proair Respiclick (Albuterol Sulfate) 90 Mcg Aer.pow.ba 2 Puff IH TWICE WEEKLY PRN Meclizine Hcl 12.5 Mg Tablet 1 Tab PO TID PRN NITROGLYCERIN SubLingual (Nitroglycerin) 0.4 Mg Tab.subl 0.4 Mg SL PRN Q5MIN PRN Flomax (Tamsulosin Hcl) 0.4 Mg Cap.er.24h 0.8 Mg PO HS Tramadol Hcl 50 Mg Tablet 50 Mg PO Q6H PRN Atorvastatin Calcium 80 Mg Tablet 80 Mg PO HS Albuterol Sulfate Neb Soln (Albuterol Sulfate) 2.5 Mg/3 Ml Vial.neb 2.5 Mg NEB QID PRN Tylenol (Acetaminophen) 325 Mg Tablet 1-2 Tab PO Q6HRS PRN Vitals/I & O Vital Sign - Last 24 Hours 05/31/17 05/31/17 05/31/17 05/31/17 13:00 14:00 15:19 16:00 Temp 97.9 98.0 97.9 98.0 Pulse 82 84 110 104 Resp 14 12 15 12 B/P (MAP) 87/54 (65) 109/86 (94) 116/88 (97) 134/94 (107) Pulse Ox 95 95 94 95 O2 Delivery Room Air Room Air Room Air Room Air 05/31/17 05/31/17 05/31/17 05/31/17 16:00 17:04 18:00 19:04 Temp 98.0 98.0 Pulse 71 84 92 Resp 12 20 15 B/P (MAP) 115/79 (91) 108/64 (79) 124/85 (98) Pulse Ox 96 94 99 O2 Delivery Room Air Room Air Room Air Room Air O2 Flow Rate 2.0 05/31/17 05/31/17 05/31/17 05/31/17 20:09 20:30 21:07 22:00 Pulse 91 101 94 88 Resp 21 20 20 B/P (MAP) 113/85 (94) 113/85 116/83 (94) 110/85 (93) Pulse Ox 97 98 98 O2 Delivery Room Air Room Air Room Air 05/31/17 06/01/17 06/01/17 06/01/17 23:01 00:00 00:00 01:00 Pulse 87 78 82 Resp 21 15 16 B/P (MAP) 116/86 (96) 110/84 (93) 109/83 (92) Pulse Ox 97 96 98 O2 Delivery Room Air Room Air Room Air Room Air 06/01/17 06/01/17 06/01/17 06/01/17 02:00 03:01 04:02 04:07 Temp 97.9 97.9 Pulse 70 70 87 Resp 15 17 B/P (MAP) 125/89 (101) 159/99 (119) 107/70 (82) Pulse Ox 96 O2 Delivery Room Air Room Air Room Air Room Air 06/01/17 06/01/17 06/01/17 06/01/17 05:00 05:59 07:00 08:00 Temp 97.8 97.8 Pulse 70 70 95 Resp 13 14 21 B/P (MAP) 102/74 (83) 96/66 (76) 149/95 (113) Pulse Ox 93 O2 Delivery Room Air Room Air Room Air Room Air O2 Flow Rate 2.0 06/01/17 06/01/17 06/01/17 06/01/17 08:27 08:59 08:59 09:21 Pulse 96 86 86 97 Resp 26 20 B/P (MAP) 117/76 (90) 117/76 117/76 128/74 (92) Pulse Ox 97 96 O2 Delivery Room Air Room Air 06/01/17 06/01/17 10:05 11:07 Temp 98.4 98.4 Pulse 88 75 Resp 14 15 B/P (MAP) 100/62 (75) 105/72 (83) Pulse Ox 99 100 O2 Delivery Room Air Room Air Intake and Output 05/31/17 05/31/17 06/01/17 15:00 23:00 07:00 Intake Total 200 ml 1088 ml 1525 ml Output Total 386 ml 968 ml 1697 ml Balance -186 ml 120 ml -172 ml BHAVANI BLAS MD Jun 01, 2017 12:24
--- NOTE | 2017-06-01 15:37 | RAD ---
CT head without contrast 06/01/2017 Comparison: CT head 05/30/2017. Clinical indication: Hydrocephalus, EVD. Technique: Multiple CT images of the head were obtained without contrast according to standard protocol. [facility] Compliance Statement: One or more of the following individualized dose reduction techniques were utilized for this examination: 1. Automated exposure control 2. Adjustment of the mA and/or kV according to patient size 3. Use of iterative reconstruction technique Head CT findings: Right frontal ventriculostomy shunt catheter with distal tip in similar position at the third ventricle. There is no signal change in lateral and third ventricular dilatation compared to examination from 2 days prior with persistent nonspecific periventricular white matter low attenuation most prominent adjacent to the atria of the lateral ventricles. There is no sigmoid change and midline cerebellar vermis posterior fossa hematoma now measuring 3.4 x 2.4 cm, previously 3.6 x 2.5 cm given differences in plane of scan. There is complete effacement of the fourth ventricle and basilar cisterns. There is persistent partial effacement of the bilateral cerebral sulci. Sánchez-white matter interfaces are otherwise maintained. Prior valuable plate and screw fixation of the anterior maxilla. Impression: 1. Right frontal approach EVD with distal tip in similar position with no significant change in lateral and third ventricular dilatation, periventricular white matter low-attenuation which may represent transependymal flow, and partial supratentorial sulcal effacement suggestive of cerebral edema. 2. Stable to slight decrease in midline posterior fossa cerebellar hemorrhage with resultant complete effacement of the fourth ventricle and basilar cistern effacement.
[2017-06-01] MEDS: ACETAMINOPHEN 325 MG TABLET. PO PRN (21:02)
[2017-06-01] MEDS: TAMSULOSIN 0.4 MG CAP.ER.24H. PO SCH (21:02)
[2017-06-01] MEDS: ATORVASTATIN CALCIUM 40 MG TABLET. PO SCH (21:02)
[2017-06-02] VITALS (24 sets, daily range): BP systolic 78–139; BP diastolic 53–103
[2017-06-02] MEDS: POTASSIUM CL 20MEQ D5-0.45NACL 1,000 ML IV SCH ×4 (00:08→20:21)
[2017-06-02] MEDS ORDERED: HALOPERIDOL LACTATE 5 MG/ML VIAL. IVP ONE (01:30)
[2017-06-02] MEDS: HALOPERIDOL LACTATE 5 MG/ML VIAL. IVP PRN ×3 (05:07→22:02)
[2017-06-02] MEDS: POTASSIUM CHLORIDE 20 MEQ TABLET.ER. PO SCH (08:36)
[2017-06-02] MEDS: FAMOTIDINE 20 MG/2 ML VIAL IVP SCH ×2 (08:37→21:06)
[2017-06-02] MEDS: FUROSEMIDE 40 MG TABLET. PO SCH (08:37)
[2017-06-02] MEDS: traMADol 50 MG TABLET PO PRN ×2 (08:37→14:19)
[2017-06-02] MEDS: METOPROLOL TART IMMED RELEASE 50 MG TABLET. PO SCH ×2 (08:38→21:07)
[2017-06-02] MEDS: LISINOPRIL 2.5 MG TABLET PO SCH (08:38)
--- NOTE | 2017-06-02 10:35 | PDOC ---
PROGRESS NOTES Chief Complaint Chief Complaint worsening of cerebellar hemorrhage from previous. cerebral edema, hydrocephalus CAD, now off plavix for bleed weakness, debility, poor PO intake, dehydration History of Present Illness History of Present Illness agitated overnight, wanted to leave, req. physical and chemical sedation, haldol X2, small dose ativan x1, Neurosurg follwoing, cont. decompression of hydrocephalus no appetite, s/p placement of right frontal EVD, drain pressures doing well may need shunt, per Neurosurg, pt is now over 5 days out from last dose of Plavix,. Vitals Vitals Vital Signs Date Time Temp Pulse Resp B/P (MAP) Pulse Ox O2 Delivery O2 Flow Rate FiO2 06/02/17 10:05 88 23 101/79 (86) 98 Room Air 06/02/17 07:19 97.9 97.9 06/02/17 04:00 2.0 Physical Exam Physical Exam conversant, no distress, mostly oriented, no General: Alert, Oriented X3, Cooperative, No acute distress, Other (recognized me from 10 days ago) Heart: Regular rate, No murmurs Lungs: Clear Abdomen: Normal bowel sounds, Soft Extremities: No clubbing, No edema, Normal pulses Skin: No rashes, No significant lesion Review of Systems Review of Systems agitited wants to leave, is upset about being stuck here, guards at bedside to assist Comment Review of Relevant I have reviewed the following items raul (where applicable) has been applied. Labs Laboratory Tests Test 06/01/17 09:00 White Blood Count 4.6 x10^3/uL (4.0-11.0) Red Blood Count 4.91 x10^6/uL (4.30-5.70) Hemoglobin 13.1 g/dL (13.0-17.5) Hematocrit 41.1 % (39.0-53.0) Mean Corpuscular Volume 84 fL (79-100) Mean Corpuscular Hemoglobin 27 pg (25-35) Mean Corpuscular Hemoglobin Concent 32 g/dL (31-37) Red Cell Distribution Width 16.2 % (11.5-14.5) Platelet Count 106 x10^3/uL (140-400) Neutrophils (%) (Auto) 68 % (31-73) Lymphocytes (%) (Auto) 21 % (24-48) Monocytes (%) (Auto) 9 % (0-9) Eosinophils (%) (Auto) 2 % (0-3) Basophils (%) (Auto) 1 % (0-3) Neutrophils # (Auto) 3.2 x10^3uL (1.8-7.7) Lymphocytes # (Auto) 1.0 x10^3/uL (1.0-4.8) Monocytes # (Auto) 0.4 x10^3/uL (0.0-1.1) Eosinophils # (Auto) 0.1 x10^3/uL (0.0-0.7) Basophils # (Auto) 0.0 x10^3/uL (0.0-0.2) Sodium Level 140 mmol/L (136-145) Potassium Level 3.3 mmol/L (3.5-5.1) Chloride Level 104 mmol/L (98-107) Carbon Dioxide Level 25 mmol/L (21-32) Anion Gap 11 (6-14) Blood Urea Nitrogen 10 mg/dL (8-26) Creatinine 0.8 mg/dL (0.7-1.3) Estimated GFR (Cockcroft-Gault) 116.3 BUN/Creatinine Ratio 13 (6-20) Glucose Level 167 mg/dL (70-99) Calcium Level 9.0 mg/dL (8.5-10.1) Total Bilirubin 1.4 mg/dL (0.2-1.0) Aspartate Amino Transf (AST/SGOT) 18 U/L (15-37) Alanine Aminotransferase (ALT/SGPT) 20 U/L (16-63) Alkaline Phosphatase 78 U/L (46-116) Total Protein 6.9 g/dL (6.4-8.2) Albumin 3.3 g/dL (3.4-5.0) Albumin/Globulin Ratio 0.9 (1.0-1.7) Medications Current Medications Ondansetron HCl (Zofran) 4 mg PRN Q8HRS PRN IV NAUSEA/VOMITING Last administered on 05/29/17 02:54; Start 05/28/17 at 19:00; Stop 05/29/17 at 18:59; Status DC Acetaminophen (Tylenol) 325 mg PRN Q6HRS PRN PO ARTHRITIS Last administered on 06/01/17 21:02; Start 05/28/17 at 22:30 Albuterol Sulfate (Ventolin Neb Soln) 2.5 mg PRN QID PRN NEB ASTHMA; Start at 22:30 Furosemide (Lasix) 40 mg DAILY PO Last administered on 06/02/17 08:37; Start at 09:00 Lisinopril (Prinivil) 2.5 mg DAILY PO Last administered on 06/02/17 08:38; Start 05/29/17 at 09:00 Meclizine HCl (Antivert) 12.5 mg PRN TID PRN PO DIZZINESS; Start 05/28/17 at 22 :30 Metoprolol Tartrate (Lopressor) 50 mg BID PO Last administered on 06/02/17 08: 38; Start 05/29/17 at 09:00 Nitroglycerin (Nitrostat) 0.4 mg PRN Q5MIN PRN SL CHEST PAIN; Start 05/28/17 at 22:30 Tamsulosin HCl (Flomax) 0.8 mg HS PO Last administered on 06/01/17 21:02; Start 05/29/17 at 21:00 Tramadol HCl (Ultram) 50 mg PRN Q6HRS PRN PO PAIN Last administered on 08:37; Start 05/28/17 at 22:30 Atorvastatin Calcium (Lipitor) 80 mg HS PO Last administered on 06/01/17 21:02 ; Start 05/29/17 at 21:00 Potassium Chloride (Klor-Con) 20 meq DAILYWBKFT PO Last administered on 08:36; Start 05/29/17 at 08:00 Labetalol HCl (Normodyne) 20 mg PRN Q2HR PRN IVP HYPERTENSION, SEE COMMENTS; Start 05/28/17 at 22:45 Hydralazine HCl (Apresoline) 10 mg PRN Q4HRS PRN IVP ELEVATED BP, SEE COMMENTS ; Start 05/28/17 at 22:45 Fentanyl Citrate (Fentanyl 2ml Vial) 50 mcg 1X ONCE IM Last administered on 07:53; Start 05/29/17 at 07:45; Stop 05/29/17 at 07:46; Status DC Lidocaine HCl (Lidocaine HCl 2% Abboject) 100 mg STK-MED ONCE .ROUTE ; Start 05/29/17 at 07:56; Stop 05/29/17 at 07:57; Status DC Lidocaine HCl (Lidocaine HCl 2% Abboject) 100 mg 1X ONCE IV Last administered on 05/29/17 08:01; Start 05/29/17 at 08:00; Stop 05/29/17 at 08:01; Status DC Famotidine (Pepcid) 20 mg 1X ONCE IVP Last administered on 05/29/17 11:19; Start 05/29/17 at 11:00; Stop 05/29/17 at 11:02; Status DC Famotidine (Pepcid) 20 mg BID IVP Last administered on 06/02/17 08:37; Start at 21:00 Cefazolin Sodium 1 gm/Sodium Chloride 50 ml @ 100 mls/hr Q8HRS IV Last administered on 06/02/17 05:59; Start 05/29/17 at 14:00 Potassium Chloride/Dextrose/ Sod Cl 1,000 ml @ 100 mls/hr Q10H IV Last administered on 06/02/17 10:29; Start 05/30/17 at 10:30 Sodium Chloride 500 ml @ 500 mls/hr 1X ONCE IV Last administered on 05/30/17 10:44; Start 05/30/17 at 10:30; Stop 05/30/17 at 11:29; Status DC Ondansetron HCl (Zofran) 4 mg PRN Q6HRS PRN IV NAUSEA/VOMITING Last administered on 05/30/17 18:46; Start 05/30/17 at 18:45 Haloperidol Lactate (Haldol) 2 mg 1X ONCE IVP Last administered on 06/01/17 03 :48; Start 06/01/17 at 04:00; Stop 06/01/17 at 04:01; Status DC Haloperidol Lactate (Haldol) 5 mg 1X ONCE IVP Last administered on 06/01/17 04 :23; Start 06/01/17 at 04:30; Stop 06/01/17 at 04:31; Status DC Haloperidol Lactate (Haldol) 5 mg PRN Q4HRS PRN IVP ANXIETY / AGITATION Last administered on 06/02/17 05:07; Start 06/01/17 at 04:30 Fentanyl Citrate (Fentanyl 2ml Vial) 25 mcg PRN Q5MIN PRN IV MILD PAIN; Start 06/04/17 at 07:00; Stop 06/05/17 at 06:59 Fentanyl Citrate (Fentanyl 2ml Vial) 50 mcg PRN Q5MIN PRN IV MODERATE PAIN; Start 06/04/17 at 07:00; Stop 06/05/17 at 06:59 Morphine Sulfate 1 mg PRN Q10MIN PRN IV SEVERE PAIN; Start 06/04/17 at 07:00; Stop 06/05/17 at 06:59 Ringer's Solution 1,000 ml @ 30 mls/hr Q24H IV ; Start 06/04/17 at 07:00; Stop 06/04/17 at 18:59 Lidocaine HCl 2 ml PRN 1X PRN ID PRIOR TO IV START; Start 06/04/17 at 07:00; Stop 06/05/17 at 06:59 Hydromorphone HCl (Dilaudid) 0.5 mg PRN Q10MIN PRN IV SEV PAIN, Second choice; Start 06/04/17 at 07:00; Stop 06/05/17 at 06:59 Prochlorperazine Edisylate (Compazine) 5 mg PACU PRN PRN IV NAUSEA, MRX1; Start 06/04/17 at 07:00; Stop 06/05/17 at 06:59 Haloperidol Lactate (Haldol) 5 mg 1X ONCE IVP Last administered on 06/02/17 01 :31; Start 06/02/17 at 01:30; Stop 06/02/17 at 01:31; Status DC Lorazepam (Ativan) 1 mg 1X ONCE IV Last administered on 06/02/17 01:31; Start 06/02/17 at 01:30; Stop 06/02/17 at 01:31; Status DC Active Scripts Active Aspirin Ec (Aspirin) 81 Mg Tablet.dr 162 Mg PO DAILYWBKFT 30 Days Lisinopril 2.5 Mg Tablet 2.5 Mg PO DAILY Furosemide 40 Mg Tablet 40 Mg PO DAILY Reported Plavix (Clopidogrel Bisulfate) 75 Mg Tablet 1 Tab PO DAILY Metoprolol Tartrate 50 Mg Tablet 1 Tab PO BID Potassium Chloride 20 Meq Tablet.er 20 Meq PO DAILY Proair Respiclick (Albuterol Sulfate) 90 Mcg Aer.pow.ba 2 Puff IH TWICE WEEKLY PRN Meclizine Hcl 12.5 Mg Tablet 1 Tab PO TID PRN NITROGLYCERIN SubLingual (Nitroglycerin) 0.4 Mg Tab.subl 0.4 Mg SL PRN Q5MIN PRN Flomax (Tamsulosin Hcl) 0.4 Mg Cap.er.24h 0.8 Mg PO HS Tramadol Hcl 50 Mg Tablet 50 Mg PO Q6H PRN Atorvastatin Calcium 80 Mg Tablet 80 Mg PO HS Albuterol Sulfate Neb Soln (Albuterol Sulfate) 2.5 Mg/3 Ml Vial.neb 2.5 Mg NEB QID PRN Tylenol (Acetaminophen) 325 Mg Tablet 1-2 Tab PO Q6HRS PRN Vitals/I & O Vital Sign - Last 24 Hours 06/01/17 06/01/17 06/01/17 06/01/17 11:07 12:00 12:22 13:16 Temp 98.4 98.4 Pulse 75 76 83 Resp 15 18 18 B/P (MAP) 105/72 (83) 96/60 (72) 87/67 (74) Pulse Ox 100 94 96 O2 Delivery Room Air Room Air Room Air Room Air O2 Flow Rate 06/01/17 06/01/17 06/01/17 06/01/17 14:11 15:05 16:00 16:03 Temp 97.8 97.8 Pulse 68 72 78 Resp 29 19 21 B/P (MAP) 106/75 (85) 110/69 (83) 111/74 (86) Pulse Ox 97 97 97 O2 Delivery Room Air Room Air Room Air Room Air 06/01/17 06/01/17 06/01/17 06/01/17 17:04 18:03 19:11 20:00 Pulse 90 86 76 Resp 25 21 17 B/P (MAP) 93/75 (81) 122/91 (101) 114/73 (87) Pulse Ox 93 98 98 O2 Delivery Room Air Room Air Room Air Room Air O2 Flow Rate 2.0 06/01/17 06/01/17 06/01/17 06/01/17 20:01 21:00 21:02 22:00 Temp 97.9 97.9 Pulse 83 91 83 87 Resp 19 21 B/P (MAP) 122/89 (100) 127/95 (106) 122/89 91/60 (70) Pulse Ox 95 99 100 O2 Delivery Room Air Room Air Room Air 06/01/17 06/02/17 06/02/17 06/02/17 23:02 00:00 00:00 01:01 Temp 97.8 97.8 Pulse 66 68 67 Resp 22 15 20 B/P (MAP) 91/69 (76) 103/68 (80) 87/53 (64) Pulse Ox 100 99 98 O2 Delivery Room Air Room Air Room Air Room Air O2 Flow Rate 99.0 2.0 06/02/17 06/02/17 06/02/17 06/02/17 02:04 03:01 04:00 04:01 Temp 98.5 98.5 Pulse 66 74 68 Resp 18 15 14 B/P (MAP) 111/78 (89) 78/60 (66) 115/85 (95) Pulse Ox 98 98 100 O2 Delivery Room Air Room Air Room Air Room Air O2 Flow Rate 2.0 06/02/17 06/02/17 06/02/17 06/02/17 05:00 06:01 07:19 08:00 Temp 97.9 97.9 Pulse 101 70 81 Resp 17 14 25 B/P (MAP) 131/86 (101) 83/64 (70) 120/84 (96) Pulse Ox 100 96 98 O2 Delivery Room Air Room Air Room Air Room Air 06/02/17 06/02/17 06/02/17 06/02/17 08:25 08:37 08:38 08:38 Pulse 97 99 99 Resp 13 25 B/P (MAP) 139/68 (91) 139/68 139/69 Pulse Ox 97 O2 Delivery Room Air Room Air 06/02/17 06/02/17 06/02/17 09:09 09:37 10:05 Pulse 74 88 Resp 17 14 23 B/P (MAP) 87/57 (67) 101/79 (86) Pulse Ox 98 98 O2 Delivery Room Air Room Air Room Air Intake and Output 06/01/17 06/01/17 06/02/17 15:00 23:00 07:00 Intake Total 318 ml 765 ml 1683 ml Output Total 618 ml 1008 ml 888 ml Balance -300 ml -243 ml 795 ml BHAVANI BLAS MD Jun 02, 2017 10:35
--- NOTE | 2017-06-02 12:42 | PDOC ---
SUBJECTIVE Subjective Just received haldol for agitation. Denies headache or nausea. OBJECTIVE Objective EVD intact and functioning, reopened at 0cmH20 Vital Signs Vital Signs Date Time Temp Pulse Resp B/P (MAP) Pulse Ox O2 Delivery O2 Flow Rate FiO2 06/02/17 12:02 97.8 69 17 90/75 (80) 98 Room Air 97.8 06/02/17 11:04 83 14 107/80 (89) 100 Room Air 06/02/17 10:05 88 23 101/79 (86) 98 Room Air 06/02/17 09:37 14 Room Air 06/02/17 09:09 74 17 87/57 (67) 98 Room Air 06/02/17 08:38 99 139/69 06/02/17 08:38 99 139/68 06/02/17 08:37 25 Room Air 06/02/17 08:25 97 13 139/68 (91) 97 Room Air 06/02/17 08:00 Room Air 06/02/17 07:19 97.9 81 25 120/84 (96) 98 Room Air 97.9 06/02/17 06:01 70 14 83/64 (70) 96 Room Air 06/02/17 05:00 101 17 131/86 (101) 100 Room Air 06/02/17 04:01 98.5 68 14 115/85 (95) 100 Room Air 98.5 06/02/17 04:00 Room Air 2.0 06/02/17 03:01 74 15 78/60 (66) 98 Room Air 06/02/17 02:04 66 18 111/78 (89) 98 Room Air 06/02/17 01:01 67 20 87/53 (64) 98 Room Air 06/02/17 00:00 97.8 68 15 103/68 (80) 99 Room Air 97.8 06/02/17 00:00 Room Air 2.0 06/01/17 23:02 66 22 91/69 (76) 100 Room Air 99.0 06/01/17 22:00 87 21 91/60 (70) 100 Room Air 06/01/17 21:02 83 122/89 06/01/17 21:00 91 127/95 (106) 99 Room Air 06/01/17 20:01 97.9 83 19 122/89 (100) 95 Room Air 97.9 06/01/17 20:00 Room Air 2.0 06/01/17 19:11 76 17 114/73 (87) 98 Room Air 06/01/17 18:03 86 21 122/91 (101) 98 Room Air 06/01/17 17:04 90 25 93/75 (81) 93 Room Air 06/01/17 16:03 78 21 111/74 (86) 97 Room Air 06/01/17 16:00 Room Air 06/01/17 15:05 97.8 72 19 110/69 (83) 97 Room Air 97.8 06/01/17 14:11 68 29 106/75 (85) 97 Room Air 06/01/17 13:16 83 18 87/67 (74) 96 Room Air I & O Intake and Output 06/02/17 07:00 Intake Total 2766 ml Output Total 2514 ml Balance 252 ml Intake Oral 918 ml IV Total 1848 ml Output Urine Total 2443 ml Drainage Total 64 ml Other 7 ml PHYSICAL EXAM Physical Exam arouses easily to voice, somnolent after haldol, POWERS 03/02, EVD intact/ functioning with clear CSF ASSESSMENT/PLAN Assessment/Plan 66M with EVD for hydrocephalus related to subactue posterior fossa hemorrhage/ edema -frequent clamping due to agitation -needs continued drainage -CT head tomorrow AM to reassess -on schedule for PROTEIN CHEMIST shunt Sunday Problems: ÁNGEL CAGLE MD Jun 02, 2017 12:42
--- NOTE | 2017-06-02 14:06 | RAD ---
Indication assess PICC line placement. A single view of the chest was obtained. Comparison is made to an examination 05/14/2017. There is unchanged moderate cardiomegaly. There is perhaps very slight pulmonary vascular congestion. There is some linear atelectasis in the left mid lung. There is no consolidated pneumonia significant pleural fluid collection or pneumothorax. A right PICC line is noted. A wire extends beyond the tip of the PICC line. Positioning of the tip of the PICC line itself is not certain but it is probably either at the brachiocephalic SVC junction or in the most proximal SVC IMPRESSION: Stable moderate cardiomegaly. Right PICC line as described above
--- NOTE | 2017-06-02 14:09 | RAD ---
Indication assess PICC line placement. A single view was obtained at 1327 and is compared to a study with virtually the same time scan. Heart and lungs are unchanged. Right PICC line is noted. A wire extends beyond the tip of the PICC line. Positioning of the tip of the PICC line itself is likely either in the brachiocephalic vein or the most proximal SVC
[2017-06-02] MEDS: ACETAMINOPHEN 325 MG TABLET. PO PRN ×2 (17:41→20:20)
[2017-06-02] MEDS: TAMSULOSIN 0.4 MG CAP.ER.24H. PO SCH (21:06)
[2017-06-02] MEDS: ATORVASTATIN CALCIUM 40 MG TABLET. PO SCH (21:13)
[2017-06-03] VITALS (24 sets, daily range): BP systolic 82–130; BP diastolic 59–92
[2017-06-03] MEDS: traMADol 50 MG TABLET PO PRN ×3 (03:28→15:29)
[2017-06-03] MEDS: HALOPERIDOL LACTATE 5 MG/ML VIAL. IVP PRN (03:29)
[2017-06-03] MEDS: POTASSIUM CHLORIDE 20 MEQ TABLET.ER. PO SCH (08:29)
[2017-06-03] MEDS: FAMOTIDINE 20 MG/2 ML VIAL IVP SCH ×2 (08:29→21:31)
[2017-06-03] MEDS: LISINOPRIL 2.5 MG TABLET PO SCH (08:30)
[2017-06-03] MEDS: METOPROLOL TART IMMED RELEASE 50 MG TABLET. PO SCH ×3 (08:30→22:47)
[2017-06-03] MEDS: FUROSEMIDE 40 MG TABLET. PO SCH (08:30)
[2017-06-03] MEDS: POTASSIUM CL 20MEQ D5-0.45NACL 1,000 ML IV SCH ×2 (08:31→20:10)
[2017-06-03 09:27] LABS: BASO % 0 % (0-3); EOS % 4 % (0-3); HEMATOCRIT 37.5 % (39.0-53.0); HEMOGLOBIN 12.3 g/dL (13.0-17.5); LYMPH # 1.2 x10^3/uL (1.0-4.8); LYMPH % 19 % (24-48); MEAN CORPUSCULAR HEMOGLOBIN 27 pg (25-35); MEAN CORPUSCULAR HGB CONC 33 g/dL (31-37); MEAN CORPUSCULAR VOLUME 83 fL (79-100); MONO % 8 % (0-9); NEUT % 69 % (31-73); PLATELET COUNT 108 x10^3/uL (140-400); RED BLOOD COUNT 4.54 x10^6/uL (4.30-5.70); RED CELL DISTRIBUTION WIDTH 16.4 % (11.5-14.5); WHITE BLOOD COUNT 6.1 x10^3/uL (4.0-11.0)
[2017-06-03 09:46] LABS: CALCIUM 8.8 mg/dL (8.5-10.1); CREATININE 0.8 mg/dL (0.7-1.3); GFR 116.3; POTASSIUM 3.7 mmol/L (3.5-5.1)
--- NOTE | 2017-06-03 10:31 | PDOC ---
PROGRESS NOTES Chief Complaint Chief Complaint worsening of cerebellar hemorrhage from previous. cerebral edema, hydrocephalus CAD, now off plavix for bleed weakness, debility, poor PO intake, dehydration History of Present Illness History of Present Illness very calm and easygoing today follows all commands Neurosurg follwoing, cont. decompression of hydrocephalus, I am OK with surg for shunt if indicated plavix dose will be one week out s/p placement of right frontal EVD, drain pressures doing well Vitals Vitals Vital Signs Date Time Temp Pulse Resp B/P (MAP) Pulse Ox O2 Delivery O2 Flow Rate FiO2 06/03/17 10:00 70 14 112/90 (97) 100 Room Air 06/03/17 07:00 98.1 98.1 06/03/17 02:00 2.0 Physical Exam Physical Exam conversant, no distress, mostly oriented, no General: Alert, Oriented X3, Cooperative, No acute distress, Other (recognized me from 10 days ago) Heart: Regular rate, No murmurs Lungs: Clear Abdomen: Normal bowel sounds, Soft Extremities: No clubbing, No edema, Normal pulses Skin: No rashes, No significant lesion Labs LABS Laboratory Tests Test 06/03/17 06:00 White Blood Count 6.1 x10^3/uL (4.0-11.0) Red Blood Count 4.54 x10^6/uL (4.30-5.70) Hemoglobin 12.3 g/dL (13.0-17.5) Hematocrit 37.5 % (39.0-53.0) Mean Corpuscular Volume 83 fL (79-100) Mean Corpuscular Hemoglobin 27 pg (25-35) Mean Corpuscular Hemoglobin Concent 33 g/dL (31-37) Red Cell Distribution Width 16.4 % (11.5-14.5) Platelet Count 108 x10^3/uL (140-400) Neutrophils (%) (Auto) 69 % (31-73) Lymphocytes (%) (Auto) 19 % (24-48) Monocytes (%) (Auto) 8 % (0-9) Eosinophils (%) (Auto) 4 % (0-3) Basophils (%) (Auto) 0 % (0-3) Neutrophils # (Auto) 4.2 x10^3uL (1.8-7.7) Lymphocytes # (Auto) 1.2 x10^3/uL (1.0-4.8) Monocytes # (Auto) 0.5 x10^3/uL (0.0-1.1) Eosinophils # (Auto) 0.2 x10^3/uL (0.0-0.7) Basophils # (Auto) 0.0 x10^3/uL (0.0-0.2) Sodium Level 140 mmol/L (136-145) Potassium Level 3.7 mmol/L (3.5-5.1) Chloride Level 102 mmol/L (98-107) Carbon Dioxide Level 29 mmol/L (21-32) Anion Gap 9 (6-14) Blood Urea Nitrogen 7 mg/dL (8-26) Creatinine 0.8 mg/dL (0.7-1.3) Estimated GFR (Cockcroft-Gault) 116.3 Glucose Level 135 mg/dL (70-99) Calcium Level 8.8 mg/dL (8.5-10.1) Review of Systems Review of Systems no n.vd Comment Review of Relevant I have reviewed the following items raul (where applicable) has been applied. Labs Laboratory Tests Test 06/03/17 06:00 White Blood Count 6.1 x10^3/uL (4.0-11.0) Red Blood Count 4.54 x10^6/uL (4.30-5.70) Hemoglobin 12.3 g/dL (13.0-17.5) Hematocrit 37.5 % (39.0-53.0) Mean Corpuscular Volume 83 fL (79-100) Mean Corpuscular Hemoglobin 27 pg (25-35) Mean Corpuscular Hemoglobin Concent 33 g/dL (31-37) Red Cell Distribution Width 16.4 % (11.5-14.5) Platelet Count 108 x10^3/uL (140-400) Neutrophils (%) (Auto) 69 % (31-73) Lymphocytes (%) (Auto) 19 % (24-48) Monocytes (%) (Auto) 8 % (0-9) Eosinophils (%) (Auto) 4 % (0-3) Basophils (%) (Auto) 0 % (0-3) Neutrophils # (Auto) 4.2 x10^3uL (1.8-7.7) Lymphocytes # (Auto) 1.2 x10^3/uL (1.0-4.8) Monocytes # (Auto) 0.5 x10^3/uL (0.0-1.1) Eosinophils # (Auto) 0.2 x10^3/uL (0.0-0.7) Basophils # (Auto) 0.0 x10^3/uL (0.0-0.2) Sodium Level 140 mmol/L (136-145) Potassium Level 3.7 mmol/L (3.5-5.1) Chloride Level 102 mmol/L (98-107) Carbon Dioxide Level 29 mmol/L (21-32) Anion Gap 9 (6-14) Blood Urea Nitrogen 7 mg/dL (8-26) Creatinine 0.8 mg/dL (0.7-1.3) Estimated GFR (Cockcroft-Gault) 116.3 Glucose Level 135 mg/dL (70-99) Calcium Level 8.8 mg/dL (8.5-10.1) Laboratory Tests Test 06/03/17 06:00 White Blood Count 6.1 x10^3/uL (4.0-11.0) Red Blood Count 4.54 x10^6/uL (4.30-5.70) Hemoglobin 12.3 g/dL (13.0-17.5) Hematocrit 37.5 % (39.0-53.0) Mean Corpuscular Volume 83 fL (79-100) Mean Corpuscular Hemoglobin 27 pg (25-35) Mean Corpuscular Hemoglobin Concent 33 g/dL (31-37) Red Cell Distribution Width 16.4 % (11.5-14.5) Platelet Count 108 x10^3/uL (140-400) Neutrophils (%) (Auto) 69 % (31-73) Lymphocytes (%) (Auto) 19 % (24-48) Monocytes (%) (Auto) 8 % (0-9) Eosinophils (%) (Auto) 4 % (0-3) Basophils (%) (Auto) 0 % (0-3) Neutrophils # (Auto) 4.2 x10^3uL (1.8-7.7) Lymphocytes # (Auto) 1.2 x10^3/uL (1.0-4.8) Monocytes # (Auto) 0.5 x10^3/uL (0.0-1.1) Eosinophils # (Auto) 0.2 x10^3/uL (0.0-0.7) Basophils # (Auto) 0.0 x10^3/uL (0.0-0.2) Sodium Level 140 mmol/L (136-145) Potassium Level 3.7 mmol/L (3.5-5.1) Chloride Level 102 mmol/L (98-107) Carbon Dioxide Level 29 mmol/L (21-32) Anion Gap 9 (6-14) Blood Urea Nitrogen 7 mg/dL (8-26) Creatinine 0.8 mg/dL (0.7-1.3) Estimated GFR (Cockcroft-Gault) 116.3 Glucose Level 135 mg/dL (70-99) Calcium Level 8.8 mg/dL (8.5-10.1) Medications Current Medications Ondansetron HCl (Zofran) 4 mg PRN Q8HRS PRN IV NAUSEA/VOMITING Last administered on 05/29/17 02:54; Start 05/28/17 at 19:00; Stop 05/29/17 at 18:59; Status DC Acetaminophen (Tylenol) 325 mg PRN Q6HRS PRN PO ARTHRITIS Last administered on 06/02/17 20:20; Start 05/28/17 at 22:30 Albuterol Sulfate (Ventolin Neb Soln) 2.5 mg PRN QID PRN NEB ASTHMA; Start at 22:30 Furosemide (Lasix) 40 mg DAILY PO Last administered on 06/03/17 08:30; Start at 09:00 Lisinopril (Prinivil) 2.5 mg DAILY PO Last administered on 06/03/17 08:30; Start 05/29/17 at 09:00 Meclizine HCl (Antivert) 12.5 mg PRN TID PRN PO DIZZINESS; Start 05/28/17 at 22 :30 Metoprolol Tartrate (Lopressor) 50 mg BID PO Last administered on 06/03/17 08: 30; Start 05/29/17 at 09:00 Nitroglycerin (Nitrostat) 0.4 mg PRN Q5MIN PRN SL CHEST PAIN; Start 05/28/17 at 22:30 Tamsulosin HCl (Flomax) 0.8 mg HS PO Last administered on 06/02/17 21:06; Start 05/29/17 at 21:00 Tramadol HCl (Ultram) 50 mg PRN Q6HRS PRN PO PAIN Last administered on 08:30; Start 05/28/17 at 22:30 Atorvastatin Calcium (Lipitor) 80 mg HS PO Last administered on 06/02/17 21:13 ; Start 05/29/17 at 21:00 Potassium Chloride (Klor-Con) 20 meq DAILYWBKFT PO Last administered on 08:29; Start 05/29/17 at 08:00 Labetalol HCl (Normodyne) 20 mg PRN Q2HR PRN IVP HYPERTENSION, SEE COMMENTS; Start 05/28/17 at 22:45 Hydralazine HCl (Apresoline) 10 mg PRN Q4HRS PRN IVP ELEVATED BP, SEE COMMENTS ; Start 05/28/17 at 22:45 Fentanyl Citrate (Fentanyl 2ml Vial) 50 mcg 1X ONCE IM Last administered on 07:53; Start 05/29/17 at 07:45; Stop 05/29/17 at 07:46; Status DC Lidocaine HCl (Lidocaine HCl 2% Abboject) 100 mg STK-MED ONCE .ROUTE ; Start 05/29/17 at 07:56; Stop 05/29/17 at 07:57; Status DC Lidocaine HCl (Lidocaine HCl 2% Abboject) 100 mg 1X ONCE IV Last administered on 05/29/17 08:01; Start 05/29/17 at 08:00; Stop 05/29/17 at 08:01; Status DC Famotidine (Pepcid) 20 mg 1X ONCE IVP Last administered on 05/29/17 11:19; Start 05/29/17 at 11:00; Stop 05/29/17 at 11:02; Status DC Famotidine (Pepcid) 20 mg BID IVP Last administered on 06/03/17 08:29; Start at 21:00 Cefazolin Sodium 1 gm/Sodium Chloride 50 ml @ 100 mls/hr Q8HRS IV Last administered on 06/03/17 06:18; Start 05/29/17 at 14:00 Potassium Chloride/Dextrose/ Sod Cl 1,000 ml @ 100 mls/hr Q10H IV Last administered on 06/03/17 08:31; Start 05/30/17 at 10:30 Sodium Chloride 500 ml @ 500 mls/hr 1X ONCE IV Last administered on 05/30/17 10:44; Start 05/30/17 at 10:30; Stop 05/30/17 at 11:29; Status DC Ondansetron HCl (Zofran) 4 mg PRN Q6HRS PRN IV NAUSEA/VOMITING Last administered on 05/30/17 18:46; Start 05/30/17 at 18:45 Haloperidol Lactate (Haldol) 2 mg 1X ONCE IVP Last administered on 06/01/17 03 :48; Start 06/01/17 at 04:00; Stop 06/01/17 at 04:01; Status DC Haloperidol Lactate (Haldol) 5 mg 1X ONCE IVP Last administered on 06/01/17 04 :23; Start 06/01/17 at 04:30; Stop 06/01/17 at 04:31; Status DC Haloperidol Lactate (Haldol) 5 mg PRN Q4HRS PRN IVP ANXIETY / AGITATION Last administered on 06/03/17 03:29; Start 06/01/17 at 04:30 Fentanyl Citrate (Fentanyl 2ml Vial) 25 mcg PRN Q5MIN PRN IV MILD PAIN; Start 06/04/17 at 07:00; Stop 06/05/17 at 06:59 Fentanyl Citrate (Fentanyl 2ml Vial) 50 mcg PRN Q5MIN PRN IV MODERATE PAIN; Start 06/04/17 at 07:00; Stop 06/05/17 at 06:59 Morphine Sulfate 1 mg PRN Q10MIN PRN IV SEVERE PAIN; Start 06/04/17 at 07:00; Stop 06/05/17 at 06:59 Ringer's Solution 1,000 ml @ 30 mls/hr Q24H IV ; Start 06/04/17 at 07:00; Stop 06/04/17 at 18:59 Lidocaine HCl 2 ml PRN 1X PRN ID PRIOR TO IV START; Start 06/04/17 at 07:00; Stop 06/05/17 at 06:59 Hydromorphone HCl (Dilaudid) 0.5 mg PRN Q10MIN PRN IV SEV PAIN, Second choice; Start 06/04/17 at 07:00; Stop 06/05/17 at 06:59 Prochlorperazine Edisylate (Compazine) 5 mg PACU PRN PRN IV NAUSEA, MRX1; Start 06/04/17 at 07:00; Stop 06/05/17 at 06:59 Haloperidol Lactate (Haldol) 5 mg 1X ONCE IVP Last administered on 06/02/17 01 :31; Start 06/02/17 at 01:30; Stop 06/02/17 at 01:31; Status DC Lorazepam (Ativan) 1 mg 1X ONCE IV Last administered on 06/02/17 01:31; Start 06/02/17 at 01:30; Stop 06/02/17 at 01:31; Status DC Bacitracin 01754 unit/Sodium Chloride 1,000 ml @ 1,000 mls/hr 1X PERIOP ONCE IRR ; Start 06/04/17 at 06:00; Stop 06/04/17 at 06:59 Active Scripts Active Aspirin Ec (Aspirin) 81 Mg Tablet.dr 162 Mg PO DAILYWBKFT 30 Days Lisinopril 2.5 Mg Tablet 2.5 Mg PO DAILY Furosemide 40 Mg Tablet 40 Mg PO DAILY Reported Plavix (Clopidogrel Bisulfate) 75 Mg Tablet 1 Tab PO DAILY Metoprolol Tartrate 50 Mg Tablet 1 Tab PO BID Potassium Chloride 20 Meq Tablet.er 20 Meq PO DAILY Proair Respiclick (Albuterol Sulfate) 90 Mcg Aer.pow.ba 2 Puff IH TWICE WEEKLY PRN Meclizine Hcl 12.5 Mg Tablet 1 Tab PO TID PRN NITROGLYCERIN SubLingual (Nitroglycerin) 0.4 Mg Tab.subl 0.4 Mg SL PRN Q5MIN PRN Flomax (Tamsulosin Hcl) 0.4 Mg Cap.er.24h 0.8 Mg PO HS Tramadol Hcl 50 Mg Tablet 50 Mg PO Q6H PRN Atorvastatin Calcium 80 Mg Tablet 80 Mg PO HS Albuterol Sulfate Neb Soln (Albuterol Sulfate) 2.5 Mg/3 Ml Vial.neb 2.5 Mg NEB QID PRN Tylenol (Acetaminophen) 325 Mg Tablet 1-2 Tab PO Q6HRS PRN Vitals/I & O Vital Sign - Last 24 Hours 06/02/17 06/02/17 06/02/17 06/02/17 11:04 12:00 12:02 13:15 Temp 97.8 97.8 Pulse 83 69 89 Resp 14 17 20 B/P (MAP) 107/80 (89) 90/75 (80) 122/93 (103) Pulse Ox 100 98 100 O2 Delivery Room Air Room Air Room Air Room Air 06/02/17 06/02/17 06/02/17 06/02/17 14:02 14:19 15:13 16:00 Pulse 89 69 Resp 16 20 18 B/P (MAP) 133/103 (113) 118/87 (97) Pulse Ox 100 99 O2 Delivery Room Air Room Air Room Air Room Air 06/02/17 06/02/17 06/02/17 06/02/17 16:08 17:12 18:09 19:00 Temp 98.1 98.6 98.1 98.6 Pulse 69 76 73 74 Resp 16 18 17 16 B/P (MAP) 123/79 (94) 89/67 (74) 128/80 (96) 104/65 (78) Pulse Ox 97 98 99 100 O2 Delivery Room Air Room Air Room Air Room Air O2 Flow Rate 2.0 06/02/17 06/02/17 06/02/17 06/02/17 20:00 20:00 21:00 21:07 Pulse 67 88 100 Resp 9 11 B/P (MAP) 96/68 (77) 101/69 (80) 101/69 Pulse Ox 100 100 O2 Delivery Room Air Room Air Room Air 06/02/17 06/02/17 06/03/17 06/03/17 22:00 23:00 00:00 00:00 Temp 98.9 98.9 Pulse 82 74 83 Resp 21 18 9 B/P (MAP) 119/93 (102) 115/78 (90) 119/89 (99) Pulse Ox 100 100 99 O2 Delivery Room Air Room Air Room Air Room Air 06/03/17 06/03/17 06/03/17 06/03/17 01:00 02:00 03:00 03:28 Pulse 81 81 97 Resp 12 20 15 B/P (MAP) 113/73 (86) 119/73 (88) 107/78 (88) Pulse Ox 99 99 100 100 O2 Delivery Room Air Room Air Room Air Room Air O2 Flow Rate 2.0 06/03/17 06/03/17 06/03/17 06/03/17 04:00 04:00 05:00 06:00 Temp 98.2 98.2 Pulse 70 70 76 Resp 10 12 16 B/P (MAP) 98/69 (79) 87/61 (70) 107/73 (84) Pulse Ox 94 99 99 O2 Delivery Room Air Room Air Room Air Room Air 06/03/17 06/03/17 06/03/17 06/03/17 07:00 08:00 08:00 08:30 Temp 98.1 98.1 Pulse 83 81 70 Resp 20 22 B/P (MAP) 118/74 (89) 122/81 (95) 122/81 Pulse Ox 99 100 O2 Delivery Room Air Room Air Room Air 06/03/17 06/03/17 06/03/17 06/03/17 08:30 08:30 09:00 09:30 Pulse 70 67 Resp 20 12 22 B/P (MAP) 122/81 101/80 (87) Pulse Ox 98 98 98 O2 Delivery Room Air Room Air Room Air 06/03/17 10:00 Pulse 70 Resp 14 B/P (MAP) 112/90 (97) Pulse Ox 100 O2 Delivery Room Air Intake and Output 06/02/17 06/02/17 06/03/17 15:00 23:00 07:00 Intake Total 250 ml 1478 ml 1338 ml Output Total 1179 ml 1261 ml 1084 ml Balance -929 ml 217 ml 254 ml BHAVANI BLAS MD Jun 03, 2017 10:31
--- NOTE | 2017-06-03 10:52 | RAD ---
Indication follow-up. Noncontrast images of the head were obtained and are compared to a study 2 days previously. Known pathology in the posterior fossa is reproduced and appears similar. Shunt tubing extending into the ventricular system is noted unchanged in position. Hydrocephalus seen previously has resolved and the ventricles now are virtually slitlike. No new finding is seen. IMPRESSION: Interval resolution of hydrocephalus seen previously. The ventricles are now slitlike in appearance. Known pathology in the posterior fossa persists and appears unchanged PQRS Compliance Statement: One or more of the following individualized dose reduction techniques were utilized for this examination: 1. Automated exposure control 2. Adjustment of the mA and/or kV according to patient size 3. Use of iterative reconstruction technique
--- NOTE | 2017-06-03 11:25 | PDOC ---
SUBJECTIVE Subjective Pt calm and cooperative this AM. Reports mild headache. Denies nausea/vomiting or other changes. OBJECTIVE Vital Signs Vital Signs Date Time Temp Pulse Resp B/P (MAP) Pulse Ox O2 Delivery O2 Flow Rate FiO2 06/03/17 11:00 80 12 123/92 (102) 100 Room Air 06/03/17 10:00 70 14 112/90 (97) 100 Room Air 06/03/17 09:30 22 98 Room Air 06/03/17 09:00 67 12 101/80 (87) 98 Room Air 06/03/17 08:30 20 98 Room Air 06/03/17 08:30 70 122/81 06/03/17 08:30 70 122/81 06/03/17 08:00 Room Air 06/03/17 08:00 81 22 122/81 (95) 100 Room Air 06/03/17 07:00 98.1 83 20 118/74 (89) 99 Room Air 98.1 06/03/17 06:00 76 16 107/73 (84) 99 Room Air 06/03/17 05:00 98.2 70 12 87/61 (70) 99 Room Air 98.2 06/03/17 04:00 Room Air 06/03/17 04:00 70 10 98/69 (79) 94 Room Air 06/03/17 03:28 15 100 Room Air 06/03/17 03:00 97 20 107/78 (88) 100 Room Air 06/03/17 02:00 81 119/73 (88) 99 Room Air 2.0 06/03/17 01:00 81 12 113/73 (86) 99 Room Air 06/03/17 00:00 83 9 119/89 (99) 99 Room Air 06/03/17 00:00 Room Air 06/02/17 23:00 98.9 74 18 115/78 (90) 100 Room Air 98.9 06/02/17 22:00 82 21 119/93 (102) 100 Room Air 06/02/17 21:07 100 101/69 06/02/17 21:00 88 11 101/69 (80) 100 Room Air 06/02/17 20:00 67 9 96/68 (77) 100 Room Air 06/02/17 20:00 Room Air 06/02/17 19:00 98.6 74 16 104/65 (78) 100 Room Air 2.0 98.6 06/02/17 18:09 73 17 128/80 (96) 99 Room Air 06/02/17 17:12 76 18 89/67 (74) 98 Room Air 06/02/17 16:08 98.1 69 16 123/79 (94) 97 Room Air 98.1 06/02/17 16:00 Room Air 06/02/17 15:13 69 18 118/87 (97) 99 Room Air 06/02/17 14:19 20 Room Air 06/02/17 14:02 89 16 133/103 (113) 100 Room Air 06/02/17 13:15 89 20 122/93 (103) 100 Room Air 06/02/17 12:02 97.8 69 17 90/75 (80) 98 Room Air 97.8 06/02/17 12:00 Room Air I & O Intake and Output 06/03/17 07:00 Intake Total 3066 ml Output Total 3524 ml Balance -458 ml Intake Oral 738 ml IV Total 2328 ml Output Urine Total 3255 ml Drainage Total 126 ml Other 143 ml PHYSICAL EXAM Physical Exam AA, NAD, calm, POWERS to command briskly, EVD intact/functions ASSESSMENT/PLAN Assessment/Plan 66M with hydrocephalus with EVD -good decompression of vents on CT -neuro stable, reported improvement of restlessness and aggressive behavior -will clamp EVD and recheck CT in AM -on schedule for [employer] shunt placement in AM -d/w patient, all questions answered, all in agreement Problems: COMMENT Lab Laboratory Tests Test 06/03/17 06:00 White Blood Count 6.1 x10^3/uL (4.0-11.0) Red Blood Count 4.54 x10^6/uL (4.30-5.70) Hemoglobin 12.3 g/dL (13.0-17.5) Hematocrit 37.5 % (39.0-53.0) Mean Corpuscular Volume 83 fL (79-100) Mean Corpuscular Hemoglobin 27 pg (25-35) Mean Corpuscular Hemoglobin Concent 33 g/dL (31-37) Red Cell Distribution Width 16.4 % (11.5-14.5) Platelet Count 108 x10^3/uL (140-400) Neutrophils (%) (Auto) 69 % (31-73) Lymphocytes (%) (Auto) 19 % (24-48) Monocytes (%) (Auto) 8 % (0-9) Eosinophils (%) (Auto) 4 % (0-3) Basophils (%) (Auto) 0 % (0-3) Neutrophils # (Auto) 4.2 x10^3uL (1.8-7.7) Lymphocytes # (Auto) 1.2 x10^3/uL (1.0-4.8) Monocytes # (Auto) 0.5 x10^3/uL (0.0-1.1) Eosinophils # (Auto) 0.2 x10^3/uL (0.0-0.7) Basophils # (Auto) 0.0 x10^3/uL (0.0-0.2) Sodium Level 140 mmol/L (136-145) Potassium Level 3.7 mmol/L (3.5-5.1) Chloride Level 102 mmol/L (98-107) Carbon Dioxide Level 29 mmol/L (21-32) Anion Gap 9 (6-14) Blood Urea Nitrogen 7 mg/dL (8-26) Creatinine 0.8 mg/dL (0.7-1.3) Estimated GFR (Cockcroft-Gault) 116.3 Glucose Level 135 mg/dL (70-99) Calcium Level 8.8 mg/dL (8.5-10.1) ÁNGEL CAGLE MD Jun 03, 2017 11:25
[2017-06-03] MEDS: ACETAMINOPHEN 325 MG TABLET. PO PRN ×2 (13:27→21:32)
[2017-06-03] MEDS: TAMSULOSIN 0.4 MG CAP.ER.24H. PO SCH (21:30)
[2017-06-03] MEDS: ATORVASTATIN CALCIUM 40 MG TABLET. PO SCH (21:30)
[2017-06-04] VITALS (21 sets, daily range): BP systolic 100–139; BP diastolic 35–100
[2017-06-04] MEDS: POTASSIUM CL 20MEQ D5-0.45NACL 1,000 ML IV SCH ×3 (00:30→22:22)
[2017-06-04] MEDS ORDERED: BACITRACIN 50,000 UNIT in IV NORMAL SALINE 1000ML BAG 1,000 ML IRR ONE (06:00)
--- NOTE | 2017-06-04 06:00 | RAD ---
INDICATION: Hydrocephalus, cerebellar hemorrhage. COMPARISON: June 03, 2017 TECHNIQUE: Axial CT images obtained through the head without intravenous contrast. One or more of the following individualized dose reduction techniques were utilized for this examination: 1. Automated exposure control; 2. Adjustment of the mA and/or kV according to patient size; 3. Use of iterative reconstruction technique. FINDINGS: Ventricular shunt from a right frontal approach with tip in third ventricle. Interval increase in size of the ventricles when compared to prior examination. Repeat demonstration of high density within the posterior fossa measuring up to 29 mm in diameter which is similar prior. There is again low attenuation within the cerebellum surrounding this region. Scattered low attenuation within the white matter of the bilateral cerebral hemispheres. IMPRESSION: 1. Interval development of dilatation of the lateral and third ventricles which can be seen with hydrocephalus. 2. Repeat demonstration of high attenuation material within the cerebellum which could be secondary to cerebellar hemorrhage. Cannot exclude a mass within the region as well. There is surrounding low attenuation which could be from edema. 3. Low-attenuation within the cerebral white matter bilaterally. Nonspecific appearance and could be secondary to regions of edema or gliosis.. Electronically signed by: Dick Galeas MD (06/04/2017 5:57 AM) [id number]
[2017-06-04] MEDS ORDERED: LIDOCAINE 1% 1 ML SYRINGE. ID PRN (07:00)
[2017-06-04] MEDS ORDERED: fentaNYL PF VIAL 100 MCG/2 ML VIAL IV PRN ×3 (07:00→11:15)
[2017-06-04] MEDS ORDERED: IV RINGERS,LACTATED 1000ML 1,000 ML IV SCH (07:00)
[2017-06-04] MEDS ORDERED: MORPHINE SULFATE 2 MG/ML DISP.SYRIN. IV PRN (07:00)
[2017-06-04] MEDS ORDERED: PROCHLORPERAZINE 10 MG/2 ML VIAL. IV PRN (07:00)
[2017-06-04] MEDS ORDERED: HYDROmorphone 2 MG/ML VIAL IV PRN (07:00)
[2017-06-04] MEDS ORDERED: LIDOCAINE 2% PF Vial for OR 5 ML VIAL. ONE (07:29)
[2017-06-04] MEDS ORDERED: fentaNYL PF VIAL 100 MCG/2 ML VIAL ONE (07:29)
[2017-06-04] MEDS ORDERED: PROPOFOL 20 ML IV ONE (07:29)
[2017-06-04] MEDS ORDERED: ROCURONIUM 100 MG/10 ML VIAL. ONE (07:32)
[2017-06-04] MEDS ORDERED: BUPIVAC MPF-EPI 0.5%-1:200000 30 ML VIAL. ONE ×2 (07:46→08:09)
[2017-06-04] MEDS ORDERED: GELATIN SPONGE SIZE 100. ONE (07:46)
[2017-06-04] MEDS ORDERED: THROMBIN TOPICAL 20,000 UNIT SPRAY.SYRN KIT TP ONE (07:46)
[2017-06-04] MEDS: POTASSIUM CHLORIDE 20 MEQ TABLET.ER. PO SCH (08:00)
[2017-06-04] MEDS ORDERED: LIDOCAINE 1% 20 ML VIAL. ONE (08:09)
--- NOTE | 2017-06-04 08:35 | PDOC ---
PROGRESS NOTES Chief Complaint Chief Complaint worsening of cerebellar hemorrhage from previous. cerebral edema, hydrocephalus CAD, now off plavix for bleed weakness, debility, poor PO intake, dehydration History of Present Illness History of Present Illness very calm and easygoing today follows all commands to surg today plavix dose will be one week out s/p placement of right frontal EVD, drain pressures doing well Vitals Vitals Vital Signs Date Time Temp Pulse Resp B/P (MAP) Pulse Ox O2 Delivery O2 Flow Rate FiO2 06/04/17 08:00 Room Air 06/04/17 08:00 98.1 72 15 112/83 (93) 99 98.1 06/03/17 18:00 2.0 Physical Exam Physical Exam conversant, no distress, General: Alert, Oriented X3, Cooperative, No acute distress, Other (recognized me from 10 days ago) Heart: Regular rate, No murmurs Lungs: Clear Abdomen: Normal bowel sounds, Soft Extremities: No clubbing, No edema, Normal pulses Skin: No rashes, No significant lesion Review of Systems Review of Systems calm, no n.v.d Comment Review of Relevant I have reviewed the following items raul (where applicable) has been applied. Labs Laboratory Tests Test 06/03/17 06:00 White Blood Count 6.1 x10^3/uL (4.0-11.0) Red Blood Count 4.54 x10^6/uL (4.30-5.70) Hemoglobin 12.3 g/dL (13.0-17.5) Hematocrit 37.5 % (39.0-53.0) Mean Corpuscular Volume 83 fL (79-100) Mean Corpuscular Hemoglobin 27 pg (25-35) Mean Corpuscular Hemoglobin Concent 33 g/dL (31-37) Red Cell Distribution Width 16.4 % (11.5-14.5) Platelet Count 108 x10^3/uL (140-400) Neutrophils (%) (Auto) 69 % (31-73) Lymphocytes (%) (Auto) 19 % (24-48) Monocytes (%) (Auto) 8 % (0-9) Eosinophils (%) (Auto) 4 % (0-3) Basophils (%) (Auto) 0 % (0-3) Neutrophils # (Auto) 4.2 x10^3uL (1.8-7.7) Lymphocytes # (Auto) 1.2 x10^3/uL (1.0-4.8) Monocytes # (Auto) 0.5 x10^3/uL (0.0-1.1) Eosinophils # (Auto) 0.2 x10^3/uL (0.0-0.7) Basophils # (Auto) 0.0 x10^3/uL (0.0-0.2) Sodium Level 140 mmol/L (136-145) Potassium Level 3.7 mmol/L (3.5-5.1) Chloride Level 102 mmol/L (98-107) Carbon Dioxide Level 29 mmol/L (21-32) Anion Gap 9 (6-14) Blood Urea Nitrogen 7 mg/dL (8-26) Creatinine 0.8 mg/dL (0.7-1.3) Estimated GFR (Cockcroft-Gault) 116.3 Glucose Level 135 mg/dL (70-99) Calcium Level 8.8 mg/dL (8.5-10.1) Medications Current Medications Ondansetron HCl (Zofran) 4 mg PRN Q8HRS PRN IV NAUSEA/VOMITING Last administered on 05/29/17 02:54; Start 05/28/17 at 19:00; Stop 05/29/17 at 18:59; Status DC Acetaminophen (Tylenol) 325 mg PRN Q6HRS PRN PO ARTHRITIS Last administered on 06/03/17 21:32; Start 05/28/17 at 22:30 Albuterol Sulfate (Ventolin Neb Soln) 2.5 mg PRN QID PRN NEB ASTHMA; Start at 22:30 Furosemide (Lasix) 40 mg DAILY PO Last administered on 06/03/17 08:30; Start at 09:00 Lisinopril (Prinivil) 2.5 mg DAILY PO Last administered on 06/03/17 08:30; Start 05/29/17 at 09:00 Meclizine HCl (Antivert) 12.5 mg PRN TID PRN PO DIZZINESS; Start 05/28/17 at 22 :30 Metoprolol Tartrate (Lopressor) 50 mg BID PO Last administered on 06/03/17 22: 47; Start 05/29/17 at 09:00 Nitroglycerin (Nitrostat) 0.4 mg PRN Q5MIN PRN SL CHEST PAIN; Start 05/28/17 at 22:30 Tamsulosin HCl (Flomax) 0.8 mg HS PO Last administered on 06/03/17 21:30; Start 05/29/17 at 21:00 Tramadol HCl (Ultram) 50 mg PRN Q6HRS PRN PO PAIN Last administered on 15:29; Start 05/28/17 at 22:30 Atorvastatin Calcium (Lipitor) 80 mg HS PO Last administered on 06/03/17 21:30 ; Start 05/29/17 at 21:00 Potassium Chloride (Klor-Con) 20 meq DAILYWBKFT PO Last administered on 08:29; Start 05/29/17 at 08:00 Labetalol HCl (Normodyne) 20 mg PRN Q2HR PRN IVP HYPERTENSION, SEE COMMENTS; Start 05/28/17 at 22:45 Hydralazine HCl (Apresoline) 10 mg PRN Q4HRS PRN IVP ELEVATED BP, SEE COMMENTS ; Start 05/28/17 at 22:45 Fentanyl Citrate (Fentanyl 2ml Vial) 50 mcg 1X ONCE IM Last administered on 07:53; Start 05/29/17 at 07:45; Stop 05/29/17 at 07:46; Status DC Lidocaine HCl (Lidocaine HCl 2% Abboject) 100 mg STK-MED ONCE .ROUTE ; Start 05/29/17 at 07:56; Stop 05/29/17 at 07:57; Status DC Lidocaine HCl (Lidocaine HCl 2% Abboject) 100 mg 1X ONCE IV Last administered on 05/29/17 08:01; Start 05/29/17 at 08:00; Stop 05/29/17 at 08:01; Status DC Famotidine (Pepcid) 20 mg 1X ONCE IVP Last administered on 05/29/17 11:19; Start 05/29/17 at 11:00; Stop 05/29/17 at 11:02; Status DC Famotidine (Pepcid) 20 mg BID IVP Last administered on 06/03/17 21:31; Start at 21:00 Cefazolin Sodium 1 gm/Sodium Chloride 50 ml @ 100 mls/hr Q8HRS IV Last administered on 06/04/17 05:35; Start 05/29/17 at 14:00 Potassium Chloride/Dextrose/ Sod Cl 1,000 ml @ 100 mls/hr Q10H IV Last administered on 06/03/17 20:10; Start 05/30/17 at 10:30 Sodium Chloride 500 ml @ 500 mls/hr 1X ONCE IV Last administered on 05/30/17 10:44; Start 05/30/17 at 10:30; Stop 05/30/17 at 11:29; Status DC Ondansetron HCl (Zofran) 4 mg PRN Q6HRS PRN IV NAUSEA/VOMITING Last administered on 05/30/17 18:46; Start 05/30/17 at 18:45 Haloperidol Lactate (Haldol) 2 mg 1X ONCE IVP Last administered on 06/01/17 03 :48; Start 06/01/17 at 04:00; Stop 06/01/17 at 04:01; Status DC Haloperidol Lactate (Haldol) 5 mg 1X ONCE IVP Last administered on 06/01/17 04 :23; Start 06/01/17 at 04:30; Stop 06/01/17 at 04:31; Status DC Haloperidol Lactate (Haldol) 5 mg PRN Q4HRS PRN IVP ANXIETY / AGITATION Last administered on 06/03/17 03:29; Start 06/01/17 at 04:30 Fentanyl Citrate (Fentanyl 2ml Vial) 25 mcg PRN Q5MIN PRN IV MILD PAIN; Start 06/04/17 at 07:00; Stop 06/05/17 at 06:59 Fentanyl Citrate (Fentanyl 2ml Vial) 50 mcg PRN Q5MIN PRN IV MODERATE PAIN; Start 06/04/17 at 07:00; Stop 06/05/17 at 06:59 Morphine Sulfate 1 mg PRN Q10MIN PRN IV SEVERE PAIN; Start 06/04/17 at 07:00; Stop 06/05/17 at 06:59 Ringer's Solution 1,000 ml @ 30 mls/hr Q24H IV ; Start 06/04/17 at 07:00; Stop 06/04/17 at 18:59 Lidocaine HCl 2 ml PRN 1X PRN ID PRIOR TO IV START; Start 06/04/17 at 07:00; Stop 06/05/17 at 06:59 Hydromorphone HCl (Dilaudid) 0.5 mg PRN Q10MIN PRN IV SEV PAIN, Second choice; Start 06/04/17 at 07:00; Stop 06/05/17 at 06:59 Prochlorperazine Edisylate (Compazine) 5 mg PACU PRN PRN IV NAUSEA, MRX1; Start 06/04/17 at 07:00; Stop 06/05/17 at 06:59 Haloperidol Lactate (Haldol) 5 mg 1X ONCE IVP Last administered on 06/02/17 01 :31; Start 06/02/17 at 01:30; Stop 06/02/17 at 01:31; Status DC Lorazepam (Ativan) 1 mg 1X ONCE IV Last administered on 06/02/17 01:31; Start 06/02/17 at 01:30; Stop 06/02/17 at 01:31; Status DC Bacitracin 38753 unit/Sodium Chloride 1,000 ml @ 1,000 mls/hr 1X PERIOP ONCE IRR ; Start 06/04/17 at 06:00; Stop 06/04/17 at 06:59; Status DC Lidocaine HCl (Lidocaine Pf 2% Vial) 5 ml STK-MED ONCE .ROUTE ; Start 06/04/17 at 07:29; Stop 06/04/17 at 07:30; Status DC Propofol 20 ml @ As Directed STK-MED ONCE IV ; Start 06/04/17 at 07:29; Stop 06/04 at 07:30; Status DC Fentanyl Citrate (Fentanyl 2ml Vial) 100 mcg STK-MED ONCE .ROUTE ; Start at 07:29; Stop 06/04/17 at 07:30; Status DC Rocuronium [place] (Zemuron) 100 mg STK-MED ONCE .ROUTE ; Start 06/04/17 at 07:32 ; Stop 06/04/17 at 07:33; Status DC Bupivacaine HCl/ Epinephrine Bitart (Sensorcain-Mpf Epi 0.5%-1:292610) 30 ml STK -MED ONCE .ROUTE ; Start 06/04/17 at 07:46; Stop 06/04/17 at 07:47; Status DC Gelatin (Gelfoam Size 100) 1 each STK-MED ONCE .ROUTE ; Start 06/04/17 at 07:46 ; Stop 06/04/17 at 07:47; Status DC Thrombin 20,000 unit STK-MED ONCE TP ; Start 06/04/17 at 07:46; Stop 06/04/17 at 07:47; Status DC Bupivacaine HCl/ Epinephrine Bitart (Sensorcain-Mpf Epi 0.5%-1:434022) 30 ml STK -MED ONCE .ROUTE ; Start 06/04/17 at 08:09; Stop 06/04/17 at 08:10; Status DC Lidocaine HCl 20 ml STK-MED ONCE .ROUTE ; Start 06/04/17 at 08:09; Stop 06/04/17 at 08:10; Status DC Active Scripts Active Aspirin Ec (Aspirin) 81 Mg Tablet.dr 162 Mg PO DAILYWBKFT 30 Days Lisinopril 2.5 Mg Tablet 2.5 Mg PO DAILY Furosemide 40 Mg Tablet 40 Mg PO DAILY Reported Plavix (Clopidogrel Bisulfate) 75 Mg Tablet 1 Tab PO DAILY Metoprolol Tartrate 50 Mg Tablet 1 Tab PO BID Potassium Chloride 20 Meq Tablet.er 20 Meq PO DAILY Proair Respiclick (Albuterol Sulfate) 90 Mcg Aer.pow.ba 2 Puff IH TWICE WEEKLY PRN Meclizine Hcl 12.5 Mg Tablet 1 Tab PO TID PRN NITROGLYCERIN SubLingual (Nitroglycerin) 0.4 Mg Tab.subl 0.4 Mg SL PRN Q5MIN PRN Flomax (Tamsulosin Hcl) 0.4 Mg Cap.er.24h 0.8 Mg PO HS Tramadol Hcl 50 Mg Tablet 50 Mg PO Q6H PRN Atorvastatin Calcium 80 Mg Tablet 80 Mg PO HS Albuterol Sulfate Neb Soln (Albuterol Sulfate) 2.5 Mg/3 Ml Vial.neb 2.5 Mg NEB QID PRN Tylenol (Acetaminophen) 325 Mg Tablet 1-2 Tab PO Q6HRS PRN Vitals/I & O Vital Sign - Last 24 Hours 06/03/17 06/03/17 06/03/17 06/03/17 09:00 10:00 11:00 12:00 Pulse 67 70 80 Resp 12 14 12 B/P (MAP) 101/80 (87) 112/90 (97) 123/92 (102) Pulse Ox 98 100 100 O2 Delivery Room Air Room Air Room Air Room Air 06/03/17 06/03/17 06/03/17 06/03/17 12:00 13:00 14:00 15:00 Temp 98.1 98.1 Pulse 82 81 81 76 Resp 12 12 18 18 B/P (MAP) 110/85 (93) 124/75 (91) 91/62 (72) 82/59 (67) Pulse Ox 100 98 98 99 O2 Delivery Room Air Room Air Room Air Room Air 06/03/17 06/03/17 06/03/17 06/03/17 15:29 15:33 16:00 16:29 Resp 15 18 B/P (MAP) 105/73 (84) Pulse Ox 96 O2 Delivery Room Air Room Air Room Air 06/03/17 06/03/17 06/03/17 06/03/17 17:00 18:00 19:00 20:00 Temp 97.6 97.6 Pulse 80 77 84 Resp 20 16 15 B/P (MAP) 118/83 (95) 93/66 (75) 100/67 (78) Pulse Ox 99 99 99 O2 Delivery Room Air Room Air Room Air Room Air O2 Flow Rate 2.0 06/03/17 06/03/17 06/03/17 06/03/17 20:00 21:00 21:59 22:47 Pulse 80 78 84 82 Resp 17 17 16 B/P (MAP) 124/87 (99) 112/81 (91) 130/87 (101) 130/87 Pulse Ox 100 92 O2 Delivery Room Air Room Air Room Air 06/03/17 06/04/17 06/04/17 06/04/17 23:00 00:00 00:04 00:41 Temp 98.2 98.2 Pulse 94 77 Resp 17 18 B/P (MAP) 118/92 (101) 107/80 (89) O2 Delivery Room Air Room Air Room Air 06/04/17 06/04/17 06/04/17 06/04/17 01:59 03:00 04:00 04:06 Pulse 68 73 84 Resp 17 18 18 B/P (MAP) 111/75 (87) 100/71 (81) 119/81 (94) O2 Delivery Room Air Room Air Room Air Room Air 06/04/17 06/04/17 06/04/17 06/04/17 05:00 06:00 07:00 08:00 Temp 98.3 98.0 98.1 98.3 98.0 98.1 Pulse 94 72 87 72 Resp 17 18 18 15 B/P (MAP) 105/76 (86) 112/84 (93) 123/86 (98) 112/83 (93) Pulse Ox 98 99 O2 Delivery Room Air Room Air Room Air Room Air 06/04/17 08:00 O2 Delivery Room Air Intake and Output 06/03/17 06/03/17 06/04/17 15:00 23:00 07:00 Intake Total 410 ml 125 ml 1100 ml Output Total 870 ml 1220 ml 1015 ml Balance -460 ml -1095 ml 85 ml BHAVANI BLAS MD Jun 04, 2017 08:35
[2017-06-04] MEDS ORDERED: DESFLURANE 61 TO 120 MINUTES IH ONE (08:59)
[2017-06-04] MEDS ORDERED: DEXAMETHASONE SOD PHOS 20 MG/5 ML VIAL. ONE (08:59)
[2017-06-04] MEDS: LISINOPRIL 2.5 MG TABLET PO SCH (09:00)
[2017-06-04] MEDS: FUROSEMIDE 40 MG TABLET. PO SCH (09:00)
[2017-06-04] MEDS ORDERED: PHENYLEPHRINE 10 MG/ML VIAL. ONE ×3 (09:25→09:44)
[2017-06-04] MEDS ORDERED: 0.9 % SODIUM CHLORIDE 50 ML VIAL. IJ ONE (09:25)
[2017-06-04] MEDS ORDERED: GLYCOPYRROLATE 1 MG/5 ML VIAL. ONE (09:56)
[2017-06-04] MEDS ORDERED: ONDANSETRON PF 4 MG/2 ML VIAL. ONE (09:56)
[2017-06-04] MEDS ORDERED: NEOSTIGMINE 10 MG/10 ML VIAL. ONE (09:56)
--- NOTE | 2017-06-04 10:42 | PDOC ---
BRIEF OPERATIVE NOTE Date: Jun 04, 2017 Pre-Op Diagnosis obstructive hydrocephalus, posterior fossa hemorrhagic stroke Post-Op Diagnosis same Procedure Performed removal of EVD, placement of right frontal ventriculoperitoneal shunt Surgeon Jeimy = removal of EVD and placement of intracranial cathether with connection to distal shunt system that was tunneled subcutaneously to the abdominal region Caleb = laparoscopic placement of distal shunt tubing into the peritoneum Mine Inspector none Anesthesia Type: General Blood Loss 10mL Findings clear CSF under some pressure Complications none apparent ÁNGEL CAGLE MD Jun 04, 2017 10:42
--- NOTE | 2017-06-04 10:45 | PDOC ---
SUBJECTIVE Subjective Late entry. Pt seen/examined approx 0830 this AM. No acute changes. EVD clamped with resultant increased ventriculomegaly. OBJECTIVE Objective CT head with increased ventriculomegaly after EVD challenge Vital Signs Vital Signs Date Time Temp Pulse Resp B/P (MAP) Pulse Ox O2 Delivery O2 Flow Rate FiO2 06/04/17 08:00 Room Air 06/04/17 08:00 98.1 72 15 112/83 (93) 99 Room Air 98.1 06/04/17 07:00 98.0 87 18 123/86 (98) 98 Room Air 98.0 06/04/17 06:00 72 18 112/84 (93) Room Air 06/04/17 05:00 98.3 94 17 105/76 (86) Room Air 98.3 06/04/17 04:06 84 18 119/81 (94) Room Air 06/04/17 04:00 Room Air 06/04/17 03:00 73 18 100/71 (81) Room Air 06/04/17 01:59 68 17 111/75 (87) Room Air 06/04/17 00:41 98.2 98.2 06/04/17 00:04 77 18 107/80 (89) Room Air 06/04/17 00:00 Room Air 06/03/17 23:00 94 17 118/92 (101) Room Air 06/03/17 22:47 82 130/87 06/03/17 21:59 84 16 130/87 (101) Room Air 06/03/17 21:00 78 17 112/81 (91) 92 Room Air 06/03/17 20:00 80 17 124/87 (99) 100 Room Air 06/03/17 20:00 Room Air 06/03/17 19:00 97.6 84 15 100/67 (78) 99 Room Air 97.6 06/03/17 18:00 77 16 93/66 (75) 99 Room Air 2.0 06/03/17 17:00 80 20 118/83 (95) 99 Room Air 06/03/17 16:29 18 96 Room Air 06/03/17 16:00 Room Air 06/03/17 15:33 105/73 (84) 06/03/17 15:29 15 Room Air 06/03/17 15:00 76 18 82/59 (67) 99 Room Air 06/03/17 14:00 81 18 91/62 (72) 98 Room Air 06/03/17 13:00 81 12 124/75 (91) 98 Room Air 06/03/17 12:00 98.1 82 12 110/85 (93) 100 Room Air 98.1 06/03/17 12:00 Room Air 06/03/17 11:00 80 12 123/92 (102) 100 Room Air 06/03/17 10:00 70 14 112/90 (97) 100 Room Air 06/03/17 09:00 67 12 101/80 (87) 98 Room Air I & O Intake and Output 06/04/17 08:59 Intake Total 1635 ml Output Total 3238 ml Balance -1603 ml Intake Oral 435 ml IV Total 1200 ml Output Urine Total 3210 ml Drainage Total 28 ml Other 0 ml PHYSICAL EXAM Physical Exam AA, NAD, POWERS briskly to command, EVD intact ASSESSMENT/PLAN Assessment/Plan 66M with obstructive hydrocephalus dependent on CSF diversion -EVD conversion to HEAT READER shunt today Problems: ÁNGEL CAGLE MD Jun 04, 2017 10:45
[2017-06-04] MEDS ORDERED: oxyCODONE/APAP 5/325 1 TAB TABLET PO PRN ×2 (11:15)
[2017-06-04] MEDS: FAMOTIDINE 20 MG/2 ML VIAL IVP SCH ×2 (11:57→20:44)
[2017-06-04] MEDS: fentaNYL PF VIAL 100 MCG/2 ML VIAL IV PRN (12:47)
--- NOTE | 2017-06-04 15:32 | OP ---
DATE OF SURGERY: 06/04/2017 SURGEON: Dr. Farooq Cagle. CO-SURGEON: Dr. Ellis. SUPERVISOR FINISHING: None. PREOPERATIVE DIAGNOSIS: Obstructive hydrocephalus secondary to posterior fossa hemorrhagic stroke. POSTOPERATIVE DIAGNOSIS: Obstructive hydrocephalus secondary to posterior fossa hemorrhagic stroke. PROCEDURE: Removal of external ventricular drain with placement of right frontal ventriculoperitoneal shunt. ANESTHESIA: General. COMPLICATIONS: None intraprocedurally. Dr. Cagle performed the removal of the external ventricular drain and placement of the intracranial catheter with connection to the distal shunt system and tunneling of the shunt system to the abdominal region. Dr. Ellis performed laparoscopic placement of the distal shunt catheter into the peritoneum. INDICATIONS FOR THE PROCEDURE: The patient is an unfortunate 66-year-old gentleman who presented with subacute posterior fossa hemorrhagic stroke. He developed obstructive hydrocephalus and an external ventricular drain was placed, decompression was achieved, but he was unable to be weaned from this drain and it was felt that permanent shunt placement will be of benefit; please refer to the patient chart for additional details. DESCRIPTION OF PROCEDURE: After informed consent was obtained, the patient was brought into the operating room. He was placed under general anesthesia, was placed in the supine position with a shoulder bump under the right shoulder. The head was turned to the left exposing the right frontal region on the right side of the head, neck, chest and abdomen. These regions were prepped and draped in the usual sterile fashion. A curvilinear incision centered around the insertion site was made with a 15 blade scalpel. Monopolar electrocautery was utilized to dissect the underlying tissues to the bone. The prior intracranial catheter was identified and preserved for the time being. A 2-cm incision was made in the retroauricular region and a trajectory was created under the galea between the right frontal incision and the right retroauricular incision. A shunt passer was utilized to create a trajectory from the right retroauricular incision to the region of the abdomen. This was utilized to tunnel a distal catheter. The proximal portion of the catheter with the Codman valve that was set at 120 mm was instituted in the subgaleal region between the right frontal incision and the right wrist or radicular incision. Once this was complete, the prior EVD catheter was removed and the intracranial shunt catheter was instituted to a depth of approximately 6.5 cm to the bone, a 90 degree aperture was utilized to secure the intracranial catheter in place and the tubing was sectioned with an appropriate length between the intracranial catheter and the proximal shunt valves. This was secured with a connection piece then silk ties. Of note, upon insertion of the EVD catheter, clear cerebrospinal fluid was noted to emerge under pressure. Once this system was connected and tunneling was complete, the distal end of the distal shunt catheter was noted to have good flow of clear cerebrospinal fluid. Upon completion of the removal of the EVD catheter and placement of the proximal ventriculoperitoneal shunt system, Dr. Ellis performed laparoscopic insertion of the distal shunt catheter to the peritoneum; please refer to the separate dictation for details on this. Once this system was complete, the subcutaneous tissues of these incisions were reapproximated with Vicryl suture in interrupted inverted fashion and the skin was reapproximated with kerri. The EVD tunneling site was closed with kerri. Prior to the final closure, the wounds were generously irrigated with antibiotic irrigation. At the end of procedure, all needle and sponge counts were correct x 2. The wounds were dressed with Xeroform, Telfa and Tegaderm. The patient was extubated in the operating room and taken back to the ICU in stable condition. There were no intraprocedural complications apparent. FAROOQ CAGLE MD DR: ISAAC/porfirio JOB#: [id number] / [id number]
--- NOTE | 2017-06-04 17:10 | PDOC2 ---
CONSULT Date of Consult Date of Consult DATE: 06/04/17 TIME: 08:30 Past Medical History Cardiovascular: Hyperlipidemia Pulmonary: COPD CENTRAL NERVOUS SYSTEM: Other GI: Diverticulosis, Other Heme/Onc: No pertinent hx Hepatobiliary: No pertinent hx Psych: No pertinent hx Musculoskeletal: No pain Rheumatologic: Fibromyalgia Infectious disease: No pertinent hx Renal/: Benign prostatic enlarg. Endocrine: No pertinent hx Past Surgical History Past Surgical History: Other Family History Family History: No Significant, Family History Unknown Social History No ALCOHOL: none Drugs: Other Lives: Roommate Current Medications Current Medications Current Medications Ondansetron HCl (Zofran) 4 mg PRN Q8HRS PRN IV NAUSEA/VOMITING Last administered on 05/29/17 02:54; Start 05/28/17 at 19:00; Stop 05/29/17 at 18:59; Status DC Acetaminophen (Tylenol) 325 mg PRN Q6HRS PRN PO ARTHRITIS Last administered on 06/03/17 21:32; Start 05/28/17 at 22:30 Albuterol Sulfate (Ventolin Neb Soln) 2.5 mg PRN QID PRN NEB ASTHMA; Start at 22:30 Furosemide (Lasix) 40 mg DAILY PO Last administered on 06/03/17 08:30; Start at 09:00 Lisinopril (Prinivil) 2.5 mg DAILY PO Last administered on 06/03/17 08:30; Start 05/29/17 at 09:00 Meclizine HCl (Antivert) 12.5 mg PRN TID PRN PO DIZZINESS; Start 05/28/17 at 22 :30 Metoprolol Tartrate (Lopressor) 50 mg BID PO Last administered on 06/03/17 22: 47; Start 05/29/17 at 09:00 Nitroglycerin (Nitrostat) 0.4 mg PRN Q5MIN PRN SL CHEST PAIN; Start 05/28/17 at 22:30 Tamsulosin HCl (Flomax) 0.8 mg HS PO Last administered on 06/03/17 21:30; Start 05/29/17 at 21:00 Tramadol HCl (Ultram) 50 mg PRN Q6HRS PRN PO PAIN Last administered on 15:29; Start 05/28/17 at 22:30 Atorvastatin Calcium (Lipitor) 80 mg HS PO Last administered on 06/03/17 21:30 ; Start 05/29/17 at 21:00 Potassium Chloride (Klor-Con) 20 meq DAILYWBKFT PO Last administered on 08:29; Start 05/29/17 at 08:00 Labetalol HCl (Normodyne) 20 mg PRN Q2HR PRN IVP HYPERTENSION, SEE COMMENTS; Start 05/28/17 at 22:45 Hydralazine HCl (Apresoline) 10 mg PRN Q4HRS PRN IVP ELEVATED BP, SEE COMMENTS ; Start 05/28/17 at 22:45 Fentanyl Citrate (Fentanyl 2ml Vial) 50 mcg 1X ONCE IM Last administered on 07:53; Start 05/29/17 at 07:45; Stop 05/29/17 at 07:46; Status DC Lidocaine HCl (Lidocaine HCl 2% Abboject) 100 mg STK-MED ONCE .ROUTE ; Start 05/29/17 at 07:56; Stop 05/29/17 at 07:57; Status DC Lidocaine HCl (Lidocaine HCl 2% Abboject) 100 mg 1X ONCE IV Last administered on 05/29/17 08:01; Start 05/29/17 at 08:00; Stop 05/29/17 at 08:01; Status DC Famotidine (Pepcid) 20 mg 1X ONCE IVP Last administered on 05/29/17 11:19; Start 05/29/17 at 11:00; Stop 05/29/17 at 11:02; Status DC Famotidine (Pepcid) 20 mg BID IVP Last administered on 06/04/17 11:57; Start at 21:00 Cefazolin Sodium 1 gm/Sodium Chloride 50 ml @ 100 mls/hr Q8HRS IV Last administered on 06/04/17 05:35; Start 05/29/17 at 14:00; Stop 06/04/17 at 13:43; Status DC Potassium Chloride/Dextrose/ Sod Cl 1,000 ml @ 100 mls/hr Q10H IV Last administered on 06/04/17 11:59; Start 05/30/17 at 10:30 Sodium Chloride 500 ml @ 500 mls/hr 1X ONCE IV Last administered on 05/30/17 10:44; Start 05/30/17 at 10:30; Stop 05/30/17 at 11:29; Status DC Ondansetron HCl (Zofran) 4 mg PRN Q6HRS PRN IV NAUSEA/VOMITING Last administered on 05/30/17 18:46; Start 05/30/17 at 18:45 Haloperidol Lactate (Haldol) 2 mg 1X ONCE IVP Last administered on 06/01/17 03 :48; Start 06/01/17 at 04:00; Stop 06/01/17 at 04:01; Status DC Haloperidol Lactate (Haldol) 5 mg 1X ONCE IVP Last administered on 06/01/17 04 :23; Start 06/01/17 at 04:30; Stop 06/01/17 at 04:31; Status DC Haloperidol Lactate (Haldol) 5 mg PRN Q4HRS PRN IVP ANXIETY / AGITATION Last administered on 06/03/17 03:29; Start 06/01/17 at 04:30 Fentanyl Citrate (Fentanyl 2ml Vial) 25 mcg PRN Q5MIN PRN IV MILD PAIN Last administered on 06/04/17 11:39; Start 06/04/17 at 07:00; Stop 06/04/17 at 18:00 Fentanyl Citrate (Fentanyl 2ml Vial) 50 mcg PRN Q5MIN PRN IV MODERATE PAIN; Start 06/04/17 at 07:00; Stop 06/04/17 at 18:00 Morphine Sulfate 1 mg PRN Q10MIN PRN IV SEVERE PAIN; Start 06/04/17 at 07:00; Stop 06/04/17 at 18:00 Ringer's Solution 1,000 ml @ 30 mls/hr Q24H IV Last administered on 06/04/17 11:58; Start 06/04/17 at 07:00; Stop 06/04/17 at 18:59 Lidocaine HCl 2 ml PRN 1X PRN ID PRIOR TO IV START; Start 06/04/17 at 07:00; Stop 06/04/17 at 18:00 Hydromorphone HCl (Dilaudid) 0.5 mg PRN Q10MIN PRN IV SEV PAIN, Second choice; Start 06/04/17 at 07:00; Stop 06/04/17 at 18:00 Prochlorperazine Edisylate (Compazine) 5 mg PACU PRN PRN IV NAUSEA, MRX1; Start 06/04/17 at 07:00; Stop 06/04/17 at 18:00 Haloperidol Lactate (Haldol) 5 mg 1X ONCE IVP Last administered on 06/02/17 01 :31; Start 06/02/17 at 01:30; Stop 06/02/17 at 01:31; Status DC Lorazepam (Ativan) 1 mg 1X ONCE IV Last administered on 06/02/17 01:31; Start 06/02/17 at 01:30; Stop 06/02/17 at 01:31; Status DC Bacitracin 49592 unit/Sodium Chloride 1,000 ml @ 1,000 mls/hr 1X PERIOP ONCE IRR Last administered on 06/04/17 09:46; Start 06/04/17 at 06:00; Stop 06/04/17 at 06:59; Status DC Lidocaine HCl (Lidocaine Pf 2% Vial) 5 ml STK-MED ONCE .ROUTE ; Start 06/04/17 at 07:29; Stop 06/04/17 at 07:30; Status DC Propofol 20 ml @ As Directed STK-MED ONCE IV ; Start 06/04/17 at 07:29; Stop 06/04 at 07:30; Status DC Fentanyl Citrate (Fentanyl 2ml Vial) 100 mcg STK-MED ONCE .ROUTE ; Start at 07:29; Stop 06/04/17 at 07:30; Status DC Rocuronium [place] (Zemuron) 100 mg STK-MED ONCE .ROUTE ; Start 06/04/17 at 07:32 ; Stop 06/04/17 at 07:33; Status DC Bupivacaine HCl/ Epinephrine Bitart (Sensorcain-Mpf Epi 0.5%-1:[id number]) 30 ml STK -MED ONCE .ROUTE ; Start 06/04/17 at 07:46; Stop 06/04/17 at 07:47; Status DC Gelatin (Gelfoam Size 100) 1 each STK-MED ONCE .ROUTE ; Start 06/04/17 at 07:46 ; Stop 06/04/17 at 07:47; Status DC Thrombin 20,000 unit STK-MED ONCE TP ; Start 06/04/17 at 07:46; Stop 06/04/17 at 07:47; Status DC Bupivacaine HCl/ Epinephrine Bitart (Sensorcain-Mpf Epi 0.5%-1:[id number]) 30 ml STK -MED ONCE .ROUTE Last administered on 06/04/17t 09:46; Start 06/04/17 at 08:09; Stop 06/04/17 at 08:10; Status DC Lidocaine HCl 20 ml STK-MED ONCE .ROUTE ; Start 06/04/17 at 08:09; Stop 06/04/17 at 08:10; Status DC Cefazolin Sodium 50 ml @ As Directed STK-MED ONCE IV ; Start 06/04/17 at 08:58; Stop 06/04/17 at 13:43; Status DC Dexamethasone Sodium Phosphate (Decadron) 20 mg STK-MED ONCE .ROUTE ; Start 06/04 at 08:59; Stop 06/04/17 at 09:00; Status DC Desflurane (Suprane) 60 ml STK-MED ONCE IH ; Start 06/04/17 at 08:59; Stop at 09:00; Status DC Ephedrine Sulfate (Akovaz) 50 mg STK-MED ONCE .ROUTE ; Start 06/04/17 at 09:12; Stop 06/04/17 at 09:13; Status DC Phenylephrine HCl (Percy-Synephrine Inj) 10 mg STK-MED ONCE .ROUTE ; Start at 09:25; Stop 06/04/17 at 09:26; Status DC Sodium Chloride (Sodium Chloride) 50 ml STK-MED ONCE IJ ; Start 06/04/17 at 09:25 ; Stop 06/04/17 at 09:26; Status DC Phenylephrine HCl (Percy-Synephrine Inj) 10 mg STK-MED ONCE .ROUTE ; Start at 09:44; Stop 06/04/17 at 09:45; Status DC Phenylephrine HCl (Percy-Synephrine Inj) 10 mg STK-MED ONCE .ROUTE ; Start at 09:44; Stop 06/04/17 at 09:45; Status DC Ondansetron HCl (Zofran) 4 mg STK-MED ONCE .ROUTE ; Start 06/04/17 at 09:56; Stop 06/04/17 at 09:57; Status DC Neostigmine Methylsulfate (Bloxiverz) 10 mg STK-MED ONCE .ROUTE ; Start 06/04/17 at 09:56; Stop 06/04/17 at 09:57; Status DC Glycopyrrolate (Robinul) 1 mg STK-MED ONCE .ROUTE ; Start 06/04/17 at 09:56; Stop 06/04/17 at 09:57; Status DC Fentanyl Citrate (Fentanyl 2ml Vial) 50 mcg PRN Q1HR PRN IV SEVERE PAIN; Start 06/04/17 at 11:15 Fentanyl Citrate (Fentanyl 2ml Vial) 25 mcg PRN Q1HR PRN IV SEVERE PAIN Last administered on 06/04/17 12:47; Start 06/04/17 at 11:15 Oxycodone/ Acetaminophen (Percocet 5/325) 1 tab PRN Q4HRS PRN PO PAIN; Start at 11:15 Oxycodone/ Acetaminophen (Percocet 5/325) 2 tab PRN Q4HRS PRN PO PAIN Last administered on 06/04/17 14:23; Start 06/04/17 at 11:15 Active Scripts Active Aspirin Ec (Aspirin) 81 Mg Tablet.dr 162 Mg PO DAILYWBKFT 30 Days Lisinopril 2.5 Mg Tablet 2.5 Mg PO DAILY Furosemide 40 Mg Tablet 40 Mg PO DAILY Reported Plavix (Clopidogrel Bisulfate) 75 Mg Tablet 1 Tab PO DAILY Metoprolol Tartrate 50 Mg Tablet 1 Tab PO BID Potassium Chloride 20 Meq Tablet.er 20 Meq PO DAILY Proair Respiclick (Albuterol Sulfate) 90 Mcg Aer.pow.ba 2 Puff IH TWICE WEEKLY PRN Meclizine Hcl 12.5 Mg Tablet 1 Tab PO TID PRN NITROGLYCERIN SubLingual (Nitroglycerin) 0.4 Mg Tab.subl 0.4 Mg SL PRN Q5MIN PRN Flomax (Tamsulosin Hcl) 0.4 Mg Cap.er.24h 0.8 Mg PO HS Tramadol Hcl 50 Mg Tablet 50 Mg PO Q6H PRN Atorvastatin Calcium 80 Mg Tablet 80 Mg PO HS Albuterol Sulfate Neb Soln (Albuterol Sulfate) 2.5 Mg/3 Ml Vial.neb 2.5 Mg NEB QID PRN Tylenol (Acetaminophen) 325 Mg Tablet 1-2 Tab PO Q6HRS PRN Allergies Allergies: Coded Allergies: No Known Drug Allergies (Unverified , 04/24/17) Vitals VITALS Vital Signs Date Time Temp Pulse Resp B/P (MAP) Pulse Ox O2 Delivery O2 Flow Rate FiO2 06/04/17 16:00 98.1 98 16 133/100 (111) 95 Room Air 98.1 06/04/17 10:50 8 Labs Labs Laboratory Tests Test 06/03/17 06:00 White Blood Count 6.1 x10^3/uL (4.0-11.0) Red Blood Count 4.54 x10^6/uL (4.30-5.70) Hemoglobin 12.3 g/dL (13.0-17.5) Hematocrit 37.5 % (39.0-53.0) Mean Corpuscular Volume 83 fL (79-100) Mean Corpuscular Hemoglobin 27 pg (25-35) Mean Corpuscular Hemoglobin Concent 33 g/dL (31-37) Red Cell Distribution Width 16.4 % (11.5-14.5) Platelet Count 108 x10^3/uL (140-400) Neutrophils (%) (Auto) 69 % (31-73) Lymphocytes (%) (Auto) 19 % (24-48) Monocytes (%) (Auto) 8 % (0-9) Eosinophils (%) (Auto) 4 % (0-3) Basophils (%) (Auto) 0 % (0-3) Neutrophils # (Auto) 4.2 x10^3uL (1.8-7.7) Lymphocytes # (Auto) 1.2 x10^3/uL (1.0-4.8) Monocytes # (Auto) 0.5 x10^3/uL (0.0-1.1) Eosinophils # (Auto) 0.2 x10^3/uL (0.0-0.7) Basophils # (Auto) 0.0 x10^3/uL (0.0-0.2) Sodium Level 140 mmol/L (136-145) Potassium Level 3.7 mmol/L (3.5-5.1) Chloride Level 102 mmol/L (98-107) Carbon Dioxide Level 29 mmol/L (21-32) Anion Gap 9 (6-14) Blood Urea Nitrogen 7 mg/dL (8-26) Creatinine 0.8 mg/dL (0.7-1.3) Estimated GFR (Cockcroft-Gault) 116.3 Glucose Level 135 mg/dL (70-99) Calcium Level 8.8 mg/dL (8.5-10.1) Assessment/Plan Assessment/Plan FND Wk # [id number] for placement of ANIMAL NUTRITIONIST shunt will assist with abdominal portion Thanks for consult NELSON MACIAS MD Jun 04, 2017 17:10
--- NOTE | 2017-06-04 17:12 | PDOC ---
BRIEF OPERATIVE NOTE Date: Jun 04, 2017 Pre-Op Diagnosis needs SUPERVISOR MACHINING shunt Post-Op Diagnosis same Procedure Performed l/s assisted placement of abdominal portio SUPERVISOR MACHINING shunt Surgeon Caleb Anesthesia Type: General Blood Loss minimal Specimens Obtained none Findings omental adhesions in the lower abdomen from previous procedure Complications none OPerative Note WK # [id number] NELSON MACIAS MD Jun 04, 2017 17:12
--- NOTE | 2017-06-04 19:46 | EKG ---
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
[2017-06-04] MEDS: TAMSULOSIN 0.4 MG CAP.ER.24H. PO SCH (20:43)
[2017-06-04] MEDS: ATORVASTATIN CALCIUM 40 MG TABLET. PO SCH (20:44)
[2017-06-04] MEDS: METOPROLOL TART IMMED RELEASE 50 MG TABLET. PO SCH (20:44)
--- NOTE | 2017-06-04 21:45 | OP ---
DATE OF SURGERY: 06/04/2017 PREOPERATIVE DIAGNOSIS: Needs ventriculoperitoneal shunt. POSTOPERATIVE DIAGNOSIS: Needs ventriculoperitoneal shunt. PROCEDURE: Laparoscopic-assisted placement of the abdominal portion of the MULTIMEDIA SERVICES MANAGER shunt. SURGEON: Kevin Macias MD ANESTHESIA: General endotracheal. DESCRIPTION OF PROCEDURE: The patient was in the operating suite, given a general endotracheal anesthetic with Dr. Munson for placement of a MULTIMEDIA SERVICES MANAGER shunt. The abdomen had been prepped and draped. A 5 mm incision was infiltrated with local anesthetic and incised just to the left of midline in the upper quadrant. A 5 mm Visiport used to gain access into the abdominal cavity, taking care to avoid injury to abdominal contents. Pneumoperitoneum was established. Camera inserted. The shunt tubing had been tunneled subcutaneously into the right upper quadrant. Under direct vision, a Cook needle was placed into the abdominal cavity, flexible guidewire advanced, needle removed. Dilator and sheath passed over the wire. Wire removed and the dilators were removed, and the catheter threaded through the sheath into the right upper quadrant and the sheath was then removed. The patient does have some omental adhesions in the lower abdomen from previous procedures. However, the catheter was left in an open space to the right upper quadrant and was draining well. Skin incisions closed with kerri. Sterile dressings applied. The patient was awakened from his anesthetic and taken to the recovery room in stable condition. KEVIN MACIAS MD DR: RONAL/porfirio JOB#: [id number] / [id number]
[2017-06-05] VITALS (14 sets, daily range): BP systolic 98–127; BP diastolic 63–97
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
[2017-06-05 05:18] LABS: BASO % 0 % (0-3); EOS % 0 % (0-3); HEMOGLOBIN 12.5 g/dL (13.0-17.5); LYMPH # 0.9 x10^3/uL (1.0-4.8); LYMPH % 9 % (24-48); MEAN CORPUSCULAR HEMOGLOBIN 27 pg (25-35); MEAN CORPUSCULAR HGB CONC 32 g/dL (31-37); MEAN CORPUSCULAR VOLUME 84 fL (79-100); MONO % 8 % (0-9); NEUT % 83 % (31-73); PLATELET COUNT 112 x10^3/uL (140-400); RED BLOOD COUNT 4.67 x10^6/uL (4.30-5.70); WHITE BLOOD COUNT 10.5 x10^3/uL (4.0-11.0)
[2017-06-05 05:38] LABS: CALCIUM 9.3 mg/dL (8.5-10.1); CREATININE 0.7 mg/dL (0.7-1.3); GFR 135.7; MAGNESIUM 1.5 mg/dL (1.8-2.4); PHOSPHORUS 4.2 mg/dL (2.6-4.7); POTASSIUM 4.1 mmol/L (3.5-5.1)
--- NOTE | 2017-06-05 08:39 | RAD ---
Indication SOFTWARE QA MANAGER shunt pudding yesterday. AP and lateral views of the cervical spine were obtained. Shunt tubing is noted in the soft tissues of the right neck. No unexpected finding is seen. There are degenerative changes in the cervical spine. IMPRESSION: SOFTWARE QA MANAGER shunt tubing
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
--- NOTE | 2017-06-05 08:46 | RAD ---
Indication assess AUTOMATIC DEVELOPER shunt tubing. Frontal and lateral views of the chest were obtained and are compared to an examination 06/02/2017. There is unchanged cardiomegaly. There is no acute parenchymal infiltrate. AUTOMATIC DEVELOPER shunt tubing is noted overlying the right hemithorax. Right PICC line is additionally noted. IMPRESSION: Cardiomegaly, stable. No acute finding in the chest. AUTOMATIC DEVELOPER shunt tubing on the right
--- NOTE | 2017-06-05 08:47 | RAD ---
Indication DRIVER RECRUITER shunt tubing. AP and lateral views of the calvarium were obtained. The patient tubing is noted. An unexpected finding is not seen. Postoperative changes associated with maxillofacial structures is noted. IMPRESSION: DRIVER RECRUITER shunt tubing. No unexpected finding seen
[2017-06-05] MEDS: LISINOPRIL 2.5 MG TABLET PO SCH (09:00)
[2017-06-05] MEDS: POTASSIUM CHLORIDE 20 MEQ TABLET.ER. PO SCH (09:01)
[2017-06-05] MEDS: POTASSIUM CL 20MEQ D5-0.45NACL 1,000 ML IV SCH ×3 (09:02→21:43)
--- NOTE | 2017-06-05 09:02 | PDOC ---
SUBJECTIVE Subjective Denies acute complaints. Mild headache. Eating breakfast. Calm and cooperative. OBJECTIVE Objective CT head with good position of intracranial catheter with decompression of vents. Shunt series with intact distal catheter system in good position without kinks, disconnects, or fractures. Vital Signs Vital Signs Date Time Temp Pulse Resp B/P (MAP) Pulse Ox O2 Delivery O2 Flow Rate FiO2 06/05/17 08:00 95 19 106/84 (91) 97 Room Air 06/05/17 07:42 Room Air 8.0 06/05/17 07:00 98.1 87 15 110/75 (87) 96 Room Air 98.1 06/05/17 06:01 80 11 107/74 (85) 96 Room Air 06/05/17 05:02 85 15 109/71 (84) 93 Room Air 06/05/17 04:04 97 28 100/68 (79) 98 Room Air 06/05/17 03:03 90 13 118/77 (91) 94 Room Air 06/05/17 02:03 103 17 121/93 (102) 96 Room Air 06/05/17 01:04 109 27 127/97 (107) 95 Room Air 06/05/17 00:04 98.4 102 14 114/91 (99) 97 Room Air 98.4 06/04/17 23:07 114 115/90 (98) 95 Room Air 06/04/17 22:02 109 24 139/97 (111) 97 Room Air 06/04/17 21:03 97 111/35 (60) 96 Room Air 06/04/17 20:44 100 107/68 06/04/17 20:00 104 15 107/68 (81) 98 Nasal Cannula 2.0 06/04/17 19:25 98.5 114 23 130/86 (101) 100 Nasal Cannula 2.0 98.5 06/04/17 18:00 97 12 127/85 (99) 98 Room Air 06/04/17 17:00 98.1 96 16 119/82 (94) 97 Room Air 98.1 06/04/17 16:00 98.1 98 16 133/100 (111) 95 Room Air 98.1 06/04/17 16:00 Room Air 06/04/17 15:23 14 97 Room Air 06/04/17 15:00 96 14 115/89 (98) 97 Room Air 06/04/17 14:23 20 96 Room Air 06/04/17 14:00 86 14 119/91 (100) 95 Room Air 06/04/17 13:17 17 95 Room Air 06/04/17 13:00 96 20 119/91 (100) 97 Room Air 06/04/17 12:47 25 97 Room Air 06/04/17 12:09 96 Room Air 06/04/17 12:00 97.6 72 12 107/86 (93) 99 Room Air 97.6 06/04/17 12:00 Room Air 06/04/17 11:39 20 96 Room Air 06/04/17 11:25 94.5 82 20 109/84 96 Room Air 94.5 06/04/17 11:00 69 12 114/79 (91) 95 Room Air 06/04/17 10:50 Mask 8 06/04/17 10:49 94.5 88 18 101/75 100 Room Air 8 94.5 06/04/17 08:00 Room Air 06/04/17 08:00 98.1 72 15 112/83 (93) 99 Room Air 98.1 06/04/17 07:00 98.0 87 18 123/86 (98) 98 Room Air 98.0 I & O Intake and Output 06/05/17 09:00 Intake Total 3589 ml Output Total 1908 ml Balance 1681 ml Intake Oral 1085 ml IV Total 1343 ml Blood Product IV Normal Saline Flush 1161 ml Output Urine Total 1908 ml Drainage Total 0 ml PHYSICAL EXAM Physical Exam AA, NAD, eating breakfast POWERS 5/5, sensation intact LT dressings c/d/i ASSESSMENT/PLAN Assessment/Plan POD 1 shunt placement -may downgrade from ICU status from NS standpoint -increase activity/PT/OT -anticipate d/c soon if continues to be stable Problems: COMMENT Lab Laboratory Tests Test 06/04/17 18:48 06/05/17 04:00 Troponin I Quantitative 0.022 ng/mL (0.000-0.055) White Blood Count 10.5 x10^3/uL (4.0-11.0) Red Blood Count 4.67 x10^6/uL (4.30-5.70) Hemoglobin 12.5 g/dL (13.0-17.5) Hematocrit 39.0 % (39.0-53.0) Mean Corpuscular Volume 84 fL (79-100) Mean Corpuscular Hemoglobin 27 pg (25-35) Mean Corpuscular Hemoglobin Concent 32 g/dL (31-37) Red Cell Distribution Width 16.0 % (11.5-14.5) Platelet Count 112 x10^3/uL (140-400) Neutrophils (%) (Auto) 83 % (31-73) Lymphocytes (%) (Auto) 9 % (24-48) Monocytes (%) (Auto) 8 % (0-9) Eosinophils (%) (Auto) 0 % (0-3) Basophils (%) (Auto) 0 % (0-3) Neutrophils # (Auto) 8.7 x10^3uL (1.8-7.7) Lymphocytes # (Auto) 0.9 x10^3/uL (1.0-4.8) Monocytes # (Auto) 0.8 x10^3/uL (0.0-1.1) Eosinophils # (Auto) 0.0 x10^3/uL (0.0-0.7) Basophils # (Auto) 0.0 x10^3/uL (0.0-0.2) Sodium Level 135 mmol/L (136-145) Potassium Level 4.1 mmol/L (3.5-5.1) Chloride Level 98 mmol/L (98-107) Carbon Dioxide Level 30 mmol/L (21-32) Anion Gap 7 (6-14) Blood Urea Nitrogen 7 mg/dL (8-26) Creatinine 0.7 mg/dL (0.7-1.3) Estimated GFR (Cockcroft-Gault) 135.7 Glucose Level 153 mg/dL (70-99) Calcium Level 9.3 mg/dL (8.5-10.1) Phosphorus Level 4.2 mg/dL (2.6-4.7) Magnesium Level 1.5 mg/dL (1.8-2.4) ÁNGEL CAGLE MD Jun 05, 2017 09:02
[2017-06-05] MEDS: METOPROLOL TART IMMED RELEASE 50 MG TABLET. PO SCH ×2 (09:04→21:42)
[2017-06-05] MEDS: FUROSEMIDE 40 MG TABLET. PO SCH (09:05)
[2017-06-05] MEDS: FAMOTIDINE 20 MG/2 ML VIAL IVP SCH (09:05)
--- NOTE | 2017-06-05 09:25 | RAD ---
CT scan of the head without contrast 06/05/2017 Clinical History: Post shunt revision. Technique: Unenhanced, contiguous, 5 mm axial sections were obtained through the head. One or more of the following individualized dose reduction techniques were utilized for this study: 1. Automated exposure control. 2. Adjustment of the mA and/or kV according to patient size. 3. Use of iterative reconstruction technique. Findings: Comparison study is dated 06/04/2017. A right frontal ventriculostomy tube is again seen essentially unchanged in position. There is been marked interval decrease in size of the lateral and third ventricles since the previous examination. There is no evidence of hydrocephalus. There is generalized parenchymal atrophy. Areas of decreased attenuation seen within the white matter of both cerebral hemispheres consistent with areas of small vessel ischemic disease. Increased attenuation is seen in the vermis of the cerebellum. There is associated mass effect on the fourth ventricle. Decreased attenuation is seen involving the cerebellar hemispheres which may reflect edema. These findings are unchanged. No acute parenchymal abnormality is noted. No extra-axial fluid collection is seen. The osseous structures are unchanged. Impression: Significant interval decrease in size of the lateral and third ventricles as outlined above. There is no evidence of hydrocephalus.
--- NOTE | 2017-06-05 11:53 | PDOC ---
PROGRESS NOTES Chief Complaint Chief Complaint Worsening of cerebellar hemorrhage Cerebral edema Hydrocephalus CAD Weakness/debility Poor PO intake Dehydration History of Present Illness History of Present Illness Patient was resting and being monitored in ICU. Had a right frontal ventriculoperitoneal shunt placed yesterday. Also had an abdominal portio ventriculoperitoneal shunt placed yesterday. Vitals Vitals Vital Signs Date Time Temp Pulse Resp B/P (MAP) Pulse Ox O2 Delivery O2 Flow Rate FiO2 06/05/17 11:08 85 24 116/82 (93) 96 Room Air 06/05/17 07:42 8.0 06/05/17 07:00 98.1 98.1 Physical Exam Physical Exam General: Alert, Oriented X3, Cooperative, No acute distress, Other Heart: Regular rate, No murmurs Lungs: Wheezing (wheeze on expiration), Other Abdomen: Normal bowel sounds, Soft Extremities: No clubbing, No edema, Normal pulses Skin: No rashes, No significant lesion Labs LABS Laboratory Tests Test 06/04/17 18:48 06/05/17 04:00 Troponin I Quantitative 0.022 ng/mL (0.000-0.055) White Blood Count 10.5 x10^3/uL (4.0-11.0) Red Blood Count 4.67 x10^6/uL (4.30-5.70) Hemoglobin 12.5 g/dL (13.0-17.5) Hematocrit 39.0 % (39.0-53.0) Mean Corpuscular Volume 84 fL (79-100) Mean Corpuscular Hemoglobin 27 pg (25-35) Mean Corpuscular Hemoglobin Concent 32 g/dL (31-37) Red Cell Distribution Width 16.0 % (11.5-14.5) Platelet Count 112 x10^3/uL (140-400) Neutrophils (%) (Auto) 83 % (31-73) Lymphocytes (%) (Auto) 9 % (24-48) Monocytes (%) (Auto) 8 % (0-9) Eosinophils (%) (Auto) 0 % (0-3) Basophils (%) (Auto) 0 % (0-3) Neutrophils # (Auto) 8.7 x10^3uL (1.8-7.7) Lymphocytes # (Auto) 0.9 x10^3/uL (1.0-4.8) Monocytes # (Auto) 0.8 x10^3/uL (0.0-1.1) Eosinophils # (Auto) 0.0 x10^3/uL (0.0-0.7) Basophils # (Auto) 0.0 x10^3/uL (0.0-0.2) Sodium Level 135 mmol/L (136-145) Potassium Level 4.1 mmol/L (3.5-5.1) Chloride Level 98 mmol/L (98-107) Carbon Dioxide Level 30 mmol/L (21-32) Anion Gap 7 (6-14) Blood Urea Nitrogen 7 mg/dL (8-26) Creatinine 0.7 mg/dL (0.7-1.3) Estimated GFR (Cockcroft-Gault) 135.7 Glucose Level 153 mg/dL (70-99) Calcium Level 9.3 mg/dL (8.5-10.1) Phosphorus Level 4.2 mg/dL (2.6-4.7) Magnesium Level 1.5 mg/dL (1.8-2.4) Review of Systems Review of Systems Patient complains of weakness. Headache. Assessment and Plan Assessmemt and Plan Assessment: Worsening of cerebellar hemorrhage Cerebral edema Hydrocephalus CAD Weakness/debility Poor PO intake Dehydration Plan: 1. Continue ICU monitoring 2. Recheck labs 3. Monitor vitals 4. PT/OT 5. Possible d/c back to snf Problems: Comment Review of Relevant I have reviewed the following items raul (where applicable) has been applied. Labs Laboratory Tests Test 06/04/17 18:48 06/05/17 04:00 Troponin I Quantitative 0.022 ng/mL (0.000-0.055) White Blood Count 10.5 x10^3/uL (4.0-11.0) Red Blood Count 4.67 x10^6/uL (4.30-5.70) Hemoglobin 12.5 g/dL (13.0-17.5) Hematocrit 39.0 % (39.0-53.0) Mean Corpuscular Volume 84 fL (79-100) Mean Corpuscular Hemoglobin 27 pg (25-35) Mean Corpuscular Hemoglobin Concent 32 g/dL (31-37) Red Cell Distribution Width 16.0 % (11.5-14.5) Platelet Count 112 x10^3/uL (140-400) Neutrophils (%) (Auto) 83 % (31-73) Lymphocytes (%) (Auto) 9 % (24-48) Monocytes (%) (Auto) 8 % (0-9) Eosinophils (%) (Auto) 0 % (0-3) Basophils (%) (Auto) 0 % (0-3) Neutrophils # (Auto) 8.7 x10^3uL (1.8-7.7) Lymphocytes # (Auto) 0.9 x10^3/uL (1.0-4.8) Monocytes # (Auto) 0.8 x10^3/uL (0.0-1.1) Eosinophils # (Auto) 0.0 x10^3/uL (0.0-0.7) Basophils # (Auto) 0.0 x10^3/uL (0.0-0.2) Sodium Level 135 mmol/L (136-145) Potassium Level 4.1 mmol/L (3.5-5.1) Chloride Level 98 mmol/L (98-107) Carbon Dioxide Level 30 mmol/L (21-32) Anion Gap 7 (6-14) Blood Urea Nitrogen 7 mg/dL (8-26) Creatinine 0.7 mg/dL (0.7-1.3) Estimated GFR (Cockcroft-Gault) 135.7 Glucose Level 153 mg/dL (70-99) Calcium Level 9.3 mg/dL (8.5-10.1) Phosphorus Level 4.2 mg/dL (2.6-4.7) Magnesium Level 1.5 mg/dL (1.8-2.4) Laboratory Tests Test 06/04/17 18:48 06/05/17 04:00 Troponin I Quantitative 0.022 ng/mL (0.000-0.055) White Blood Count 10.5 x10^3/uL (4.0-11.0) Red Blood Count 4.67 x10^6/uL (4.30-5.70) Hemoglobin 12.5 g/dL (13.0-17.5) Hematocrit 39.0 % (39.0-53.0) Mean Corpuscular Volume 84 fL (79-100) Mean Corpuscular Hemoglobin 27 pg (25-35) Mean Corpuscular Hemoglobin Concent 32 g/dL (31-37) Red Cell Distribution Width 16.0 % (11.5-14.5) Platelet Count 112 x10^3/uL (140-400) Neutrophils (%) (Auto) 83 % (31-73) Lymphocytes (%) (Auto) 9 % (24-48) Monocytes (%) (Auto) 8 % (0-9) Eosinophils (%) (Auto) 0 % (0-3) Basophils (%) (Auto) 0 % (0-3) Neutrophils # (Auto) 8.7 x10^3uL (1.8-7.7) Lymphocytes # (Auto) 0.9 x10^3/uL (1.0-4.8) Monocytes # (Auto) 0.8 x10^3/uL (0.0-1.1) Eosinophils # (Auto) 0.0 x10^3/uL (0.0-0.7) Basophils # (Auto) 0.0 x10^3/uL (0.0-0.2) Sodium Level 135 mmol/L (136-145) Potassium Level 4.1 mmol/L (3.5-5.1) Chloride Level 98 mmol/L (98-107) Carbon Dioxide Level 30 mmol/L (21-32) Anion Gap 7 (6-14) Blood Urea Nitrogen 7 mg/dL (8-26) Creatinine 0.7 mg/dL (0.7-1.3) Estimated GFR (Cockcroft-Gault) 135.7 Glucose Level 153 mg/dL (70-99) Calcium Level 9.3 mg/dL (8.5-10.1) Phosphorus Level 4.2 mg/dL (2.6-4.7) Magnesium Level 1.5 mg/dL (1.8-2.4) Medications Current Medications Ondansetron HCl (Zofran) 4 mg PRN Q8HRS PRN IV NAUSEA/VOMITING Last administered on 05/29/17 02:54; Start 05/28/17 at 19:00; Stop 05/29/17 at 18:59; Status DC Acetaminophen (Tylenol) 325 mg PRN Q6HRS PRN PO ARTHRITIS Last administered on 06/03/17 21:32; Start 05/28/17 at 22:30 Albuterol Sulfate (Ventolin Neb Soln) 2.5 mg PRN QID PRN NEB ASTHMA; Start at 22:30 Furosemide (Lasix) 40 mg DAILY PO Last administered on 06/05/17 09:05; Start at 09:00 Lisinopril (Prinivil) 2.5 mg DAILY PO Last administered on 06/03/17 08:30; Start 05/29/17 at 09:00 Meclizine HCl (Antivert) 12.5 mg PRN TID PRN PO DIZZINESS; Start 05/28/17 at 22 :30 Metoprolol Tartrate (Lopressor) 50 mg BID PO Last administered on 06/05/17 09: 04; Start 05/29/17 at 09:00 Nitroglycerin (Nitrostat) 0.4 mg PRN Q5MIN PRN SL CHEST PAIN; Start 05/28/17 at 22:30 Tamsulosin HCl (Flomax) 0.8 mg HS PO Last administered on 06/04/17 20:43; Start 05/29/17 at 21:00 Tramadol HCl (Ultram) 50 mg PRN Q6HRS PRN PO PAIN Last administered on 15:29; Start 05/28/17 at 22:30 Atorvastatin Calcium (Lipitor) 80 mg HS PO Last administered on 06/04/17 20:44 ; Start 05/29/17 at 21:00 Potassium Chloride (Klor-Con) 20 meq DAILYWBKFT PO Last administered on 09:01; Start 05/29/17 at 08:00 Labetalol HCl (Normodyne) 20 mg PRN Q2HR PRN IVP HYPERTENSION, SEE COMMENTS; Start 05/28/17 at 22:45 Hydralazine HCl (Apresoline) 10 mg PRN Q4HRS PRN IVP ELEVATED BP, SEE COMMENTS ; Start 05/28/17 at 22:45 Fentanyl Citrate (Fentanyl 2ml Vial) 50 mcg 1X ONCE IM Last administered on 07:53; Start 05/29/17 at 07:45; Stop 05/29/17 at 07:46; Status DC Lidocaine HCl (Lidocaine HCl 2% Abboject) 100 mg STK-MED ONCE .ROUTE ; Start 05/29/17 at 07:56; Stop 05/29/17 at 07:57; Status DC Lidocaine HCl (Lidocaine HCl 2% Abboject) 100 mg 1X ONCE IV Last administered on 05/29/17 08:01; Start 05/29/17 at 08:00; Stop 05/29/17 at 08:01; Status DC Famotidine (Pepcid) 20 mg 1X ONCE IVP Last administered on 05/29/17 11:19; Start 05/29/17 at 11:00; Stop 05/29/17 at 11:02; Status DC Famotidine (Pepcid) 20 mg BID IVP Last administered on 06/05/17 09:05; Start at 21:00 Cefazolin Sodium 1 gm/Sodium Chloride 50 ml @ 100 mls/hr Q8HRS IV Last administered on 06/04/17 05:35; Start 05/29/17 at 14:00; Stop 06/04/17 at 13:43; Status DC Potassium Chloride/Dextrose/ Sod Cl 1,000 ml @ 100 mls/hr Q10H IV Last administered on 06/05/17 09:02; Start 05/30/17 at 10:30 Sodium Chloride 500 ml @ 500 mls/hr 1X ONCE IV Last administered on 05/30/17 10:44; Start 05/30/17 at 10:30; Stop 05/30/17 at 11:29; Status DC Ondansetron HCl (Zofran) 4 mg PRN Q6HRS PRN IV NAUSEA/VOMITING Last administered on 05/30/17 18:46; Start 05/30/17 at 18:45 Haloperidol Lactate (Haldol) 2 mg 1X ONCE IVP Last administered on 06/01/17 03 :48; Start 06/01/17 at 04:00; Stop 06/01/17 at 04:01; Status DC Haloperidol Lactate (Haldol) 5 mg 1X ONCE IVP Last administered on 06/01/17 04 :23; Start 06/01/17 at 04:30; Stop 06/01/17 at 04:31; Status DC Haloperidol Lactate (Haldol) 5 mg PRN Q4HRS PRN IVP ANXIETY / AGITATION Last administered on 06/03/17 03:29; Start 06/01/17 at 04:30 Fentanyl Citrate (Fentanyl 2ml Vial) 25 mcg PRN Q5MIN PRN IV MILD PAIN Last administered on 06/04/17 11:39; Start 06/04/17 at 07:00; Stop 06/04/17 at 18:00; Status DC Fentanyl Citrate (Fentanyl 2ml Vial) 50 mcg PRN Q5MIN PRN IV MODERATE PAIN; Start 06/04/17 at 07:00; Stop 06/04/17 at 18:00; Status DC Morphine Sulfate 1 mg PRN Q10MIN PRN IV SEVERE PAIN; Start 06/04/17 at 07:00; Stop 06/04/17 at 18:00; Status DC Ringer's Solution 1,000 ml @ 30 mls/hr Q24H IV Last administered on 06/04/17 11:58; Start 06/04/17 at 07:00; Stop 06/04/17 at 18:59; Status DC Lidocaine HCl 2 ml PRN 1X PRN ID PRIOR TO IV START; Start 06/04/17 at 07:00; Stop 06/04/17 at 18:00; Status DC Hydromorphone HCl (Dilaudid) 0.5 mg PRN Q10MIN PRN IV SEV PAIN, Second choice; Start 06/04/17 at 07:00; Stop 06/04/17 at 18:00; Status DC Prochlorperazine Edisylate (Compazine) 5 mg PACU PRN PRN IV NAUSEA, MRX1; Start 06/04/17 at 07:00; Stop 06/04/17 at 18:00; Status DC Haloperidol Lactate (Haldol) 5 mg 1X ONCE IVP Last administered on 06/02/17 01 :31; Start 06/02/17 at 01:30; Stop 06/02/17 at 01:31; Status DC Lorazepam (Ativan) 1 mg 1X ONCE IV Last administered on 06/02/17 01:31; Start 06/02/17 at 01:30; Stop 06/02/17 at 01:31; Status DC Bacitracin 22517 unit/Sodium Chloride 1,000 ml @ 1,000 mls/hr 1X PERIOP ONCE IRR Last administered on 06/04/17 09:46; Start 06/04/17 at 06:00; Stop 06/04/17 at 06:59; Status DC Lidocaine HCl (Lidocaine Pf 2% Vial) 5 ml STK-MED ONCE .ROUTE ; Start 06/04/17 at 07:29; Stop 06/04/17 at 07:30; Status DC Propofol 20 ml @ As Directed STK-MED ONCE IV ; Start 06/04/17 at 07:29; Stop 06/04 at 07:30; Status DC Fentanyl Citrate (Fentanyl 2ml Vial) 100 mcg STK-MED ONCE .ROUTE ; Start at 07:29; Stop 06/04/17 at 07:30; Status DC Rocuronium [place] (Zemuron) 100 mg STK-MED ONCE .ROUTE ; Start 06/04/17 at 07:32 ; Stop 06/04/17 at 07:33; Status DC Bupivacaine HCl/ Epinephrine Bitart (Sensorcain-Mpf Epi 0.5%-1:287530) 30 ml STK -MED ONCE .ROUTE ; Start 06/04/17 at 07:46; Stop 06/04/17 at 07:47; Status DC Gelatin (Gelfoam Size 100) 1 each STK-MED ONCE .ROUTE ; Start 06/04/17 at 07:46 ; Stop 06/04/17 at 07:47; Status DC Thrombin 20,000 unit STK-MED ONCE TP ; Start 06/04/17 at 07:46; Stop 06/04/17 at 07:47; Status DC Bupivacaine HCl/ Epinephrine Bitart (Sensorcain-Mpf Epi 0.5%-1:001456) 30 ml STK -MED ONCE .ROUTE Last administered on 06/04/17t 09:46; Start 06/04/17 at 08:09; Stop 06/04/17 at 08:10; Status DC Lidocaine HCl 20 ml STK-MED ONCE .ROUTE ; Start 06/04/17 at 08:09; Stop 06/04/17 at 08:10; Status DC Cefazolin Sodium 50 ml @ As Directed STK-MED ONCE IV ; Start 06/04/17 at 08:58; Stop 06/04/17 at 13:43; Status DC Dexamethasone Sodium Phosphate (Decadron) 20 mg STK-MED ONCE .ROUTE ; Start 06/04 at 08:59; Stop 06/04/17 at 09:00; Status DC Desflurane (Suprane) 60 ml STK-MED ONCE IH ; Start 06/04/17 at 08:59; Stop at 09:00; Status DC Ephedrine Sulfate (Akovaz) 50 mg STK-MED ONCE .ROUTE ; Start 06/04/17 at 09:12; Stop 06/04/17 at 09:13; Status DC Phenylephrine HCl (Percy-Synephrine Inj) 10 mg STK-MED ONCE .ROUTE ; Start at 09:25; Stop 06/04/17 at 09:26; Status DC Sodium Chloride (Sodium Chloride) 50 ml STK-MED ONCE IJ ; Start 06/04/17 at 09:25 ; Stop 06/04/17 at 09:26; Status DC Phenylephrine HCl (Percy-Synephrine Inj) 10 mg STK-MED ONCE .ROUTE ; Start at 09:44; Stop 06/04/17 at 09:45; Status DC Phenylephrine HCl (Percy-Synephrine Inj) 10 mg STK-MED ONCE .ROUTE ; Start at 09:44; Stop 06/04/17 at 09:45; Status DC Ondansetron HCl (Zofran) 4 mg STK-MED ONCE .ROUTE ; Start 06/04/17 at 09:56; Stop 06/04/17 at 09:57; Status DC Neostigmine Methylsulfate (Bloxiverz) 10 mg STK-MED ONCE .ROUTE ; Start 06/04/17 at 09:56; Stop 06/04/17 at 09:57; Status DC Glycopyrrolate (Robinul) 1 mg STK-MED ONCE .ROUTE ; Start 06/04/17 at 09:56; Stop 06/04/17 at 09:57; Status DC Fentanyl Citrate (Fentanyl 2ml Vial) 50 mcg PRN Q1HR PRN IV SEVERE PAIN; Start 06/04/17 at 11:15 Fentanyl Citrate (Fentanyl 2ml Vial) 25 mcg PRN Q1HR PRN IV SEVERE PAIN Last administered on 06/04/17t 12:47; Start 06/04/17 at 11:15 Oxycodone/ Acetaminophen (Percocet 5/325) 1 tab PRN Q4HRS PRN PO PAIN; Start at 11:15 Oxycodone/ Acetaminophen (Percocet 5/325) 2 tab PRN Q4HRS PRN PO PAIN Last administered on 06/04/17t 14:23; Start 06/04/17 at 11:15 Active Scripts Active Aspirin Ec (Aspirin) 81 Mg Tablet.dr 162 Mg PO DAILYWBKFT 30 Days Lisinopril 2.5 Mg Tablet 2.5 Mg PO DAILY Furosemide 40 Mg Tablet 40 Mg PO DAILY Reported Plavix (Clopidogrel Bisulfate) 75 Mg Tablet 1 Tab PO DAILY Metoprolol Tartrate 50 Mg Tablet 1 Tab PO BID Potassium Chloride 20 Meq Tablet.er 20 Meq PO DAILY Proair Respiclick (Albuterol Sulfate) 90 Mcg Aer.pow.ba 2 Puff IH TWICE WEEKLY PRN Meclizine Hcl 12.5 Mg Tablet 1 Tab PO TID PRN NITROGLYCERIN SubLingual (Nitroglycerin) 0.4 Mg Tab.subl 0.4 Mg SL PRN Q5MIN PRN Flomax (Tamsulosin Hcl) 0.4 Mg Cap.er.24h 0.8 Mg PO HS Tramadol Hcl 50 Mg Tablet 50 Mg PO Q6H PRN Atorvastatin Calcium 80 Mg Tablet 80 Mg PO HS Albuterol Sulfate Neb Soln (Albuterol Sulfate) 2.5 Mg/3 Ml Vial.neb 2.5 Mg NEB QID PRN Tylenol (Acetaminophen) 325 Mg Tablet 1-2 Tab PO Q6HRS PRN Vitals/I & O Vital Sign - Last 24 Hours 06/04/17 06/04/17 06/04/17 06/04/17 12:00 12:00 12:09 12:47 Temp 97.6 97.6 Pulse 72 Resp 12 25 B/P (MAP) 107/86 (93) Pulse Ox 99 96 97 O2 Delivery Room Air Room Air Room Air Room Air 06/04/17 06/04/17 06/04/17 06/04/17 13:00 13:17 14:00 14:23 Pulse 96 86 Resp 20 17 14 20 B/P (MAP) 119/91 (100) 119/91 (100) Pulse Ox 97 95 95 96 O2 Delivery Room Air Room Air Room Air Room Air 06/04/17 06/04/17 06/04/17 06/04/17 15:00 15:23 16:00 16:00 Temp 98.1 98.1 Pulse 96 98 Resp 14 14 16 B/P (MAP) 115/89 (98) 133/100 (111) Pulse Ox 97 97 95 O2 Delivery Room Air Room Air Room Air Room Air 06/04/17 06/04/17 06/04/17 06/04/17 17:00 18:00 19:25 20:00 Temp 98.1 98.5 98.1 98.5 Pulse 96 97 114 104 Resp 16 12 23 15 B/P (MAP) 119/82 (94) 127/85 (99) 130/86 (101) 107/68 (81) Pulse Ox 97 98 100 98 O2 Delivery Room Air Room Air Nasal Cannula Nasal Cannula O2 Flow Rate 2.0 2.0 06/04/17 06/04/17 06/04/17 06/04/17 20:44 21:03 22:02 23:07 Pulse 100 97 109 114 Resp 24 B/P (MAP) 107/68 111/35 (60) 139/97 (111) 115/90 (98) Pulse Ox 96 97 95 O2 Delivery Room Air Room Air Room Air 06/05/17 06/05/17 06/05/17 06/05/17 00:04 01:04 02:03 03:03 Temp 98.4 98.4 Pulse 102 109 103 90 Resp 14 27 17 13 B/P (MAP) 114/91 (99) 127/97 (107) 121/93 (102) 118/77 (91) Pulse Ox 97 95 96 94 O2 Delivery Room Air Room Air Room Air Room Air 06/05/17 06/05/17 06/05/17 06/05/17 04:04 05:02 06:01 07:00 Temp 98.1 98.1 Pulse 97 85 80 87 Resp 28 15 11 15 B/P (MAP) 100/68 (79) 109/71 (84) 107/74 (85) 110/75 (87) Pulse Ox 98 93 96 96 O2 Delivery Room Air Room Air Room Air Room Air 06/05/17 06/05/17 06/05/17 06/05/17 07:42 08:00 09:00 09:04 Pulse 95 96 93 Resp 19 B/P (MAP) 106/84 (91) 106/84 106/84 Pulse Ox 97 O2 Delivery Room Air Room Air O2 Flow Rate 8.0 06/05/17 11:08 Pulse 85 Resp 24 B/P (MAP) 116/82 (93) Pulse Ox 96 O2 Delivery Room Air Intake and Output 06/04/17 06/04/17 06/05/17 15:00 23:00 07:00 Intake Total 775 ml 1403 ml 1411 ml Output Total 570 ml 428 ml 940 ml Balance 205 ml 975 ml 471 ml NICO ALVAREZ III DO Jun 05, 2017 11:53
[2017-06-05] MEDS: HALOPERIDOL LACTATE 5 MG/ML VIAL. IVP PRN (18:04)
[2017-06-05] MEDS: fentaNYL PF VIAL 100 MCG/2 ML VIAL IV PRN (18:05)
[2017-06-05] MEDS: ATORVASTATIN CALCIUM 40 MG TABLET. PO SCH (21:42)
[2017-06-05] MEDS: TAMSULOSIN 0.4 MG CAP.ER.24H. PO SCH (21:42)
[2017-06-05] MEDS: FAMOTIDINE 20 MG TABLET. PO SCH (21:43)
[2017-06-06 03:00] VITALS: BP 96/69
[2017-06-06] MEDS: POTASSIUM CL 20MEQ D5-0.45NACL 1,000 ML IV SCH (06:16)
[2017-06-06 07:00] VITALS: BP 109/82
[2017-06-06] MEDS: METOPROLOL TART IMMED RELEASE 50 MG TABLET. PO SCH ×2 (08:57→21:17)
[2017-06-06] MEDS: POTASSIUM CHLORIDE 20 MEQ TABLET.ER. PO SCH (08:57)
[2017-06-06] MEDS: FAMOTIDINE 20 MG TABLET. PO SCH ×2 (08:58→21:16)
[2017-06-06] MEDS: FUROSEMIDE 40 MG TABLET. PO SCH (08:58)
[2017-06-06] MEDS: LISINOPRIL 2.5 MG TABLET PO SCH (09:00)
[2017-06-06 10:00] VITALS: BP 99/76
--- NOTE | 2017-06-06 11:56 | PDOC ---
SUBJECTIVE Subjective Denies acute complaints. OBJECTIVE Vital Signs Vital Signs Date Time Temp Pulse Resp B/P (MAP) Pulse Ox O2 Delivery O2 Flow Rate FiO2 06/06/17 10:00 96.3 80 18 99/76 (84) 98 Room Air 96.3 06/06/17 09:00 60 109/82 06/06/17 08:57 60 109/82 06/06/17 07:25 Room Air 06/06/17 07:00 96.8 60 18 109/82 (91) 97 Room Air 96.8 06/06/17 03:00 97.7 80 18 96/69 (78) 100 Room Air 97.7 06/05/17 23:00 97.5 104 18 108/73 (85) 100 Room Air 97.5 06/05/17 21:42 96 103/74 06/05/17 21:00 Room Air 06/05/17 19:00 97.9 96 16 103/74 (84) 95 Room Air 97.9 06/05/17 18:35 18 Room Air 06/05/17 18:05 16 Room Air 06/05/17 15:00 97.5 83 20 104/73 (83) 97 Room Air 97.5 06/05/17 13:50 98.2 73 20 98/63 (75) 98 Room Air 98.2 06/05/17 13:27 Room Air I & O Intake and Output 06/06/17 07:00 Intake Total 400 ml Output Total 725 ml Balance -325 ml Intake Oral 400 ml Output Urine Total 725 ml # Voids 6 PHYSICAL EXAM Physical Exam AA, NAD, speech fluent, POWERS 5/5, sensation intact LT, incisions c/d/i with kerri (two on head, two on abdomen) ASSESSMENT/PLAN Assessment/Plan POD 2 [employer] shunt -neurologically stable -okay to d/c to appropriate venue from NS standpoint when otherwise clear/meets criteria from other services -if d/c to detention, would recommend stay in infirmary -keep incisions clean and dry; do not soak, scrub, or submerge -no strenuous activity, no lifting more than 10lbs -needs followup with Dr. Cagle, neurosurgery, 2 weeks post-op for staple removal and reassessment [phone] -recommend repeat CT head without contrast just prior to follow-up Problems: ÁNGEL CAGLE MD Jun 06, 2017 11:56
--- NOTE | 2017-06-06 12:42 | PDOC ---
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 Cerebral edema Hydrocephalus h/o CAD Weakness/debility Poor PO intake Dehydration plan: fu with neurosx plan [facility] asa and plavix held, consider cont in 1 week will fu with neurosx in 2 weeks , repeat CT before fu cont current meds dc ivf History of Present Illness History of Present Illness Had a right frontal ventriculoperitoneal shunt placed 06/04 Vitals Vitals Vital Signs Date Time Temp Pulse Resp B/P (MAP) Pulse Ox O2 Delivery O2 Flow Rate FiO2 06/06/17 10:00 96.3 80 18 99/76 (84) 98 Room Air 96.3 06/05/17 07:42 8.0 Physical Exam Physical Exam General: Alert, Oriented X3, Cooperative, No acute distress, Other Heart: Regular rate, No murmurs Lungs: Wheezing (wheeze on expiration), Other Abdomen: Normal bowel sounds, Soft Extremities: No clubbing, No edema, Normal pulses Skin: No rashes, No significant lesion Review of Systems Review of Systems no fever, chills, chest pain or sob Comment Review of Relevant I have reviewed the following items raul (where applicable) has been applied. Labs Laboratory Tests Test 06/04/17 18:48 06/05/17 04:00 Troponin I Quantitative 0.022 ng/mL (0.000-0.055) White Blood Count 10.5 x10^3/uL (4.0-11.0) Red Blood Count 4.67 x10^6/uL (4.30-5.70) Hemoglobin 12.5 g/dL (13.0-17.5) Hematocrit 39.0 % (39.0-53.0) Mean Corpuscular Volume 84 fL (79-100) Mean Corpuscular Hemoglobin 27 pg (25-35) Mean Corpuscular Hemoglobin Concent 32 g/dL (31-37) Red Cell Distribution Width 16.0 % (11.5-14.5) Platelet Count 112 x10^3/uL (140-400) Neutrophils (%) (Auto) 83 % (31-73) Lymphocytes (%) (Auto) 9 % (24-48) Monocytes (%) (Auto) 8 % (0-9) Eosinophils (%) (Auto) 0 % (0-3) Basophils (%) (Auto) 0 % (0-3) Neutrophils # (Auto) 8.7 x10^3uL (1.8-7.7) Lymphocytes # (Auto) 0.9 x10^3/uL (1.0-4.8) Monocytes # (Auto) 0.8 x10^3/uL (0.0-1.1) Eosinophils # (Auto) 0.0 x10^3/uL (0.0-0.7) Basophils # (Auto) 0.0 x10^3/uL (0.0-0.2) Sodium Level 135 mmol/L (136-145) Potassium Level 4.1 mmol/L (3.5-5.1) Chloride Level 98 mmol/L (98-107) Carbon Dioxide Level 30 mmol/L (21-32) Anion Gap 7 (6-14) Blood Urea Nitrogen 7 mg/dL (8-26) Creatinine 0.7 mg/dL (0.7-1.3) Estimated GFR (Cockcroft-Gault) 135.7 Glucose Level 153 mg/dL (70-99) Calcium Level 9.3 mg/dL (8.5-10.1) Phosphorus Level 4.2 mg/dL (2.6-4.7) Magnesium Level 1.5 mg/dL (1.8-2.4) Medications Current Medications Ondansetron HCl (Zofran) 4 mg PRN Q8HRS PRN IV NAUSEA/VOMITING Last administered on 05/29/17 02:54; Start 05/28/17 at 19:00; Stop 05/29/17 at 18:59; Status DC Acetaminophen (Tylenol) 325 mg PRN Q6HRS PRN PO ARTHRITIS Last administered on 06/03/17 21:32; Start 05/28/17 at 22:30 Albuterol Sulfate (Ventolin Neb Soln) 2.5 mg PRN QID PRN NEB ASTHMA; Start at 22:30 Furosemide (Lasix) 40 mg DAILY PO Last administered on 06/06/17 08:58; Start at 09:00 Lisinopril (Prinivil) 2.5 mg DAILY PO Last administered on 06/06/17 09:00; Start 05/29/17 at 09:00 Meclizine HCl (Antivert) 12.5 mg PRN TID PRN PO DIZZINESS; Start 05/28/17 at 22 :30 Metoprolol Tartrate (Lopressor) 50 mg BID PO Last administered on 06/06/17 08: 57; Start 05/29/17 at 09:00 Nitroglycerin (Nitrostat) 0.4 mg PRN Q5MIN PRN SL CHEST PAIN; Start 05/28/17 at 22:30 Tamsulosin HCl (Flomax) 0.8 mg HS PO Last administered on 06/05/17 21:42; Start 05/29/17 at 21:00 Tramadol HCl (Ultram) 50 mg PRN Q6HRS PRN PO MILD PAIN Last administered on 06/03 15:29; Start 05/28/17 at 22:30 Atorvastatin Calcium (Lipitor) 80 mg HS PO Last administered on 06/05/17 21:42 ; Start 05/29/17 at 21:00 Potassium Chloride (Klor-Con) 20 meq DAILYWBKFT PO Last administered on 08:57; Start 05/29/17 at 08:00 Labetalol HCl (Normodyne) 20 mg PRN Q2HR PRN IVP HYPERTENSION, SEE COMMENTS; Start 05/28/17 at 22:45 Hydralazine HCl (Apresoline) 10 mg PRN Q4HRS PRN IVP ELEVATED BP, SEE COMMENTS ; Start 05/28/17 at 22:45 Fentanyl Citrate (Fentanyl 2ml Vial) 50 mcg 1X ONCE IM Last administered on 07:53; Start 05/29/17 at 07:45; Stop 05/29/17 at 07:46; Status DC Lidocaine HCl (Lidocaine HCl 2% Abboject) 100 mg STK-MED ONCE .ROUTE ; Start 05/29/17 at 07:56; Stop 05/29/17 at 07:57; Status DC Lidocaine HCl (Lidocaine HCl 2% Abboject) 100 mg 1X ONCE IV Last administered on 05/29/17 08:01; Start 05/29/17 at 08:00; Stop 05/29/17 at 08:01; Status DC Famotidine (Pepcid) 20 mg 1X ONCE IVP Last administered on 05/29/17 11:19; Start 05/29/17 at 11:00; Stop 05/29/17 at 11:02; Status DC Famotidine (Pepcid) 20 mg BID IVP Last administered on 06/05/17 09:05; Start at 21:00; Stop 06/05/17 at 15:05; Status DC Cefazolin Sodium 1 gm/Sodium Chloride 50 ml @ 100 mls/hr Q8HRS IV Last administered on 06/04/17 05:35; Start 05/29/17 at 14:00; Stop 06/04/17 at 13:43; Status DC Potassium Chloride/Dextrose/ Sod Cl 1,000 ml @ 100 mls/hr Q10H IV Last administered on 06/06/17 06:16; Start 05/30/17 at 10:30; Stop 06/06/17 at 10:24; Status DC Sodium Chloride 500 ml @ 500 mls/hr 1X ONCE IV Last administered on 05/30/17 10:44; Start 05/30/17 at 10:30; Stop 05/30/17 at 11:29; Status DC Ondansetron HCl (Zofran) 4 mg PRN Q6HRS PRN IV NAUSEA/VOMITING Last administered on 05/30/17 18:46; Start 05/30/17 at 18:45 Haloperidol Lactate (Haldol) 2 mg 1X ONCE IVP Last administered on 06/01/17 03 :48; Start 06/01/17 at 04:00; Stop 06/01/17 at 04:01; Status DC Haloperidol Lactate (Haldol) 5 mg 1X ONCE IVP Last administered on 06/01/17 04 :23; Start 06/01/17 at 04:30; Stop 06/01/17 at 04:31; Status DC Haloperidol Lactate (Haldol) 5 mg PRN Q4HRS PRN IVP ANXIETY / AGITATION Last administered on 06/05/17 18:04; Start 06/01/17 at 04:30 Fentanyl Citrate (Fentanyl 2ml Vial) 25 mcg PRN Q5MIN PRN IV MILD PAIN Last administered on 06/04/17 11:39; Start 06/04/17 at 07:00; Stop 06/04/17 at 18:00; Status DC Fentanyl Citrate (Fentanyl 2ml Vial) 50 mcg PRN Q5MIN PRN IV MODERATE PAIN; Start 06/04/17 at 07:00; Stop 06/04/17 at 18:00; Status DC Morphine Sulfate 1 mg PRN Q10MIN PRN IV SEVERE PAIN; Start 06/04/17 at 07:00; Stop 06/04/17 at 18:00; Status DC Ringer's Solution 1,000 ml @ 30 mls/hr Q24H IV Last administered on 06/04/17 11:58; Start 06/04/17 at 07:00; Stop 06/04/17 at 18:59; Status DC Lidocaine HCl 2 ml PRN 1X PRN ID PRIOR TO IV START; Start 06/04/17 at 07:00; Stop 06/04/17 at 18:00; Status DC Hydromorphone HCl (Dilaudid) 0.5 mg PRN Q10MIN PRN IV SEV PAIN, Second choice; Start 06/04/17 at 07:00; Stop 06/04/17 at 18:00; Status DC Prochlorperazine Edisylate (Compazine) 5 mg PACU PRN PRN IV NAUSEA, MRX1; Start 06/04/17 at 07:00; Stop 06/04/17 at 18:00; Status DC Haloperidol Lactate (Haldol) 5 mg 1X ONCE IVP Last administered on 06/02/17 01 :31; Start 06/02/17 at 01:30; Stop 06/02/17 at 01:31; Status DC Lorazepam (Ativan) 1 mg 1X ONCE IV Last administered on 06/02/17 01:31; Start 06/02/17 at 01:30; Stop 06/02/17 at 01:31; Status DC Bacitracin 96914 unit/Sodium Chloride 1,000 ml @ 1,000 mls/hr 1X PERIOP ONCE IRR Last administered on 06/04/17 09:46; Start 06/04/17 at 06:00; Stop 06/04/17 at 06:59; Status DC Lidocaine HCl (Lidocaine Pf 2% Vial) 5 ml STK-MED ONCE .ROUTE ; Start 06/04/17 at 07:29; Stop 06/04/17 at 07:30; Status DC Propofol 20 ml @ As Directed STK-MED ONCE IV ; Start 06/04/17 at 07:29; Stop 06/04 at 07:30; Status DC Fentanyl Citrate (Fentanyl 2ml Vial) 100 mcg STK-MED ONCE .ROUTE ; Start at 07:29; Stop 06/04/17 at 07:30; Status DC Rocuronium [place] (Zemuron) 100 mg STK-MED ONCE .ROUTE ; Start 06/04/17 at 07:32 ; Stop 06/04/17 at 07:33; Status DC Bupivacaine HCl/ Epinephrine Bitart (Sensorcain-Mpf Epi 0.5%-1:[id number]) 30 ml STK -MED ONCE .ROUTE ; Start 06/04/17 at 07:46; Stop 06/04/17 at 07:47; Status DC Gelatin (Gelfoam Size 100) 1 each STK-MED ONCE .ROUTE ; Start 06/04/17 at 07:46 ; Stop 06/04/17 at 07:47; Status DC Thrombin 20,000 unit STK-MED ONCE TP ; Start 06/04/17 at 07:46; Stop 06/04/17 at 07:47; Status DC Bupivacaine HCl/ Epinephrine Bitart (Sensorcain-Mpf Epi 0.5%-1:398870) 30 ml STK -MED ONCE .ROUTE Last administered on 06/04/17t 09:46; Start 06/04/17 at 08:09; Stop 06/04/17 at 08:10; Status DC Lidocaine HCl 20 ml STK-MED ONCE .ROUTE ; Start 06/04/17 at 08:09; Stop 06/04/17 at 08:10; Status DC Cefazolin Sodium 50 ml @ As Directed STK-MED ONCE IV ; Start 06/04/17 at 08:58; Stop 06/04/17 at 13:43; Status DC Dexamethasone Sodium Phosphate (Decadron) 20 mg STK-MED ONCE .ROUTE ; Start 06/04 at 08:59; Stop 06/04/17 at 09:00; Status DC Desflurane (Suprane) 60 ml STK-MED ONCE IH ; Start 06/04/17 at 08:59; Stop at 09:00; Status DC Ephedrine Sulfate (Akovaz) 50 mg STK-MED ONCE .ROUTE ; Start 06/04/17 at 09:12; Stop 06/04/17 at 09:13; Status DC Phenylephrine HCl (Percy-Synephrine Inj) 10 mg STK-MED ONCE .ROUTE ; Start at 09:25; Stop 06/04/17 at 09:26; Status DC Sodium Chloride (Sodium Chloride) 50 ml STK-MED ONCE IJ ; Start 06/04/17 at 09:25 ; Stop 06/04/17 at 09:26; Status DC Phenylephrine HCl (Percy-Synephrine Inj) 10 mg STK-MED ONCE .ROUTE ; Start at 09:44; Stop 06/04/17 at 09:45; Status DC Phenylephrine HCl (Pecry-Synephrine Inj) 10 mg STK-MED ONCE .ROUTE ; Start at 09:44; Stop 06/04/17 at 09:45; Status DC Ondansetron HCl (Zofran) 4 mg STK-MED ONCE .ROUTE ; Start 06/04/17 at 09:56; Stop 06/04/17 at 09:57; Status DC Neostigmine Methylsulfate (Bloxiverz) 10 mg STK-MED ONCE .ROUTE ; Start 06/04/17 at 09:56; Stop 06/04/17 at 09:57; Status DC Glycopyrrolate (Robinul) 1 mg STK-MED ONCE .ROUTE ; Start 06/04/17 at 09:56; Stop 06/04/17 at 09:57; Status DC Fentanyl Citrate (Fentanyl 2ml Vial) 50 mcg PRN Q1HR PRN IV SEVERE PAIN; Start 06/04/17 at 11:15 Fentanyl Citrate (Fentanyl 2ml Vial) 25 mcg PRN Q1HR PRN IV SEVERE PAIN Last administered on 06/05/17 18:05; Start 06/04/17 at 11:15 Oxycodone/ Acetaminophen (Percocet 5/325) 1 tab PRN Q4HRS PRN PO MODERATE PAIN ; Start 06/04/17 at 11:15 Oxycodone/ Acetaminophen (Percocet 5/325) 2 tab PRN Q4HRS PRN PO SEVERE PAIN Last administered on 06/04/17 14:23; Start 06/04/17 at 11:15 Famotidine (Pepcid) 20 mg BID PO Last administered on 06/06/17 08:58; Start 06/05/17 at 21:00 Active Scripts Active Aspirin Ec (Aspirin) 81 Mg Tablet.dr 162 Mg PO DAILYWBKFT 30 Days Lisinopril 2.5 Mg Tablet 2.5 Mg PO DAILY Furosemide 40 Mg Tablet 40 Mg PO DAILY Reported Plavix (Clopidogrel Bisulfate) 75 Mg Tablet 1 Tab PO DAILY Metoprolol Tartrate 50 Mg Tablet 1 Tab PO BID Potassium Chloride 20 Meq Tablet.er 20 Meq PO DAILY Proair Respiclick (Albuterol Sulfate) 90 Mcg Aer.pow.ba 2 Puff IH TWICE WEEKLY PRN Meclizine Hcl 12.5 Mg Tablet 1 Tab PO TID PRN NITROGLYCERIN SubLingual (Nitroglycerin) 0.4 Mg Tab.subl 0.4 Mg SL PRN Q5MIN PRN Flomax (Tamsulosin Hcl) 0.4 Mg Cap.er.24h 0.8 Mg PO HS Tramadol Hcl 50 Mg Tablet 50 Mg PO Q6H PRN Atorvastatin Calcium 80 Mg Tablet 80 Mg PO HS Albuterol Sulfate Neb Soln (Albuterol Sulfate) 2.5 Mg/3 Ml Vial.neb 2.5 Mg NEB QID PRN Tylenol (Acetaminophen) 325 Mg Tablet 1-2 Tab PO Q6HRS PRN Vitals/I & O Vital Sign - Last 24 Hours 06/05/17 06/05/17 06/05/17 06/05/17 13:27 13:50 15:00 18:05 Temp 98.2 97.5 98.2 97.5 Pulse 73 83 Resp 20 20 16 B/P (MAP) 98/63 (75) 104/73 (83) Pulse Ox 98 97 O2 Delivery Room Air Room Air Room Air Room Air 06/05/17 06/05/17 06/05/17 06/05/17 18:35 19:00 21:00 21:42 Temp 97.9 97.9 Pulse 96 96 Resp 18 16 B/P (MAP) 103/74 (84) 103/74 Pulse Ox 95 O2 Delivery Room Air Room Air Room Air 06/05/17 06/06/17 06/06/17 06/06/17 23:00 03:00 07:00 07:25 Temp 97.5 97.7 96.8 97.5 97.7 96.8 Pulse 104 80 60 Resp 18 18 18 B/P (MAP) 108/73 (85) 96/69 (78) 109/82 (91) Pulse Ox 100 100 97 O2 Delivery Room Air Room Air Room Air Room Air 06/06/17 06/06/17 06/06/17 08:57 09:00 10:00 Temp 96.3 96.3 Pulse 60 60 80 Resp 18 B/P (MAP) 109/82 109/82 99/76 (84) Pulse Ox 98 O2 Delivery Room Air Intake and Output 06/05/17 06/05/17 06/06/17 15:00 23:00 07:00 Intake Total 300 ml 100 ml 0 ml Output Total 725 ml Balance -425 ml 100 ml 0 ml TAE COOPER MD Jun 06, 2017 12:42
[2017-06-06 15:00] VITALS: BP 99/73
[2017-06-06 19:00] VITALS: BP 104/69
[2017-06-06] MEDS: TAMSULOSIN 0.4 MG CAP.ER.24H. PO SCH (21:16)
[2017-06-06] MEDS: ATORVASTATIN CALCIUM 40 MG TABLET. PO SCH (21:16)
[2017-06-06 23:00] VITALS: BP 117/67
[2017-06-07 03:00] VITALS: BP 114/64
[2017-06-07 04:47] LABS: BASO % 1 % (0-3); EOS % 3 % (0-3); HEMATOCRIT 39.6 % (39.0-53.0); HEMOGLOBIN 12.6 g/dL (13.0-17.5); LYMPH # 1.4 x10^3/uL (1.0-4.8); LYMPH % 23 % (24-48); MEAN CORPUSCULAR HEMOGLOBIN 27 pg (25-35); MEAN CORPUSCULAR HGB CONC 32 g/dL (31-37); MEAN CORPUSCULAR VOLUME 84 fL (79-100); MONO % 12 % (0-9); NEUT % 61 % (31-73); PLATELET COUNT 108 x10^3/uL (140-400); RED BLOOD COUNT 4.72 x10^6/uL (4.30-5.70); WHITE BLOOD COUNT 6.1 x10^3/uL (4.0-11.0)
[2017-06-07 05:06] LABS: CALCIUM 8.9 mg/dL (8.5-10.1); GFR 89.9; MAGNESIUM 1.6 mg/dL (1.8-2.4); PHOSPHORUS 3.9 mg/dL (2.6-4.7); POTASSIUM 3.7 mmol/L (3.5-5.1)
[2017-06-07 07:00] VITALS: BP 92/65
[2017-06-07] MEDS: FUROSEMIDE 40 MG TABLET. PO SCH (08:44)
[2017-06-07] MEDS: LISINOPRIL 2.5 MG TABLET PO SCH (08:45)
[2017-06-07] MEDS: METOPROLOL TART IMMED RELEASE 50 MG TABLET. PO SCH ×2 (08:45→19:59)
[2017-06-07] MEDS: FAMOTIDINE 20 MG TABLET. PO SCH ×2 (08:46→20:00)
[2017-06-07] MEDS: POTASSIUM CHLORIDE 20 MEQ TABLET.ER. PO SCH (08:47)
[2017-06-07] MEDS ORDERED: MAGNESIUM SULFATE 2GM 50 ML IV ONE (09:00)
[2017-06-07 11:00] VITALS: BP 95/65
--- NOTE | 2017-06-07 12:32 | PDOC ---
PROGRESS NOTES Chief Complaint Chief Complaint Worsening of cerebellar hemorrhage post PAEDIATRIC THORACIC PHYSICIAN shunt on 06/04 Cerebral edema Hydrocephalus h/o CAD Weakness/debility Poor PO intake Dehydration hypomagnesemia plan: fu with neurosx asa and plavix held, consider cont in 1 week will fu with neurosx in 2 weeks , repeat CT before fu cont current meds dc ivf replete Mag planed to dc today, but the industrial security analyst told me neurosx wanted to keep pt till tmr. could not get hold of dr. Munson at this time point asked nurse to call dr. munson to double check and whether needs to hold both asa and plavix x2 weeks? History of Present Illness History of Present Illness Had a right frontal ventriculoperitoneal shunt placed 06/04 unsteady gait with a walker low po intake since not like hosp food low Mag Vitals Vitals Vital Signs Date Time Temp Pulse Resp B/P (MAP) Pulse Ox O2 Delivery O2 Flow Rate FiO2 06/07/17 11:00 97.9 57 18 95/65 (75) 96 Room Air 97.9 Physical Exam Physical Exam General: Alert, Oriented X3, Cooperative, No acute distress, Other Heart: Regular rate, No murmurs Lungs: Other Abdomen: Normal bowel sounds, Soft Extremities: No clubbing, No edema, Normal pulses Skin: No rashes, No significant lesion Labs LABS Laboratory Tests Test 06/07/17 04:40 White Blood Count 6.1 x10^3/uL (4.0-11.0) Red Blood Count 4.72 x10^6/uL (4.30-5.70) Hemoglobin 12.6 g/dL (13.0-17.5) Hematocrit 39.6 % (39.0-53.0) Mean Corpuscular Volume 84 fL (79-100) Mean Corpuscular Hemoglobin 27 pg (25-35) Mean Corpuscular Hemoglobin Concent 32 g/dL (31-37) Red Cell Distribution Width 16.0 % (11.5-14.5) Platelet Count 108 x10^3/uL (140-400) Neutrophils (%) (Auto) 61 % (31-73) Lymphocytes (%) (Auto) 23 % (24-48) Monocytes (%) (Auto) 12 % (0-9) Eosinophils (%) (Auto) 3 % (0-3) Basophils (%) (Auto) 1 % (0-3) Neutrophils # (Auto) 3.7 x10^3uL (1.8-7.7) Lymphocytes # (Auto) 1.4 x10^3/uL (1.0-4.8) Monocytes # (Auto) 0.7 x10^3/uL (0.0-1.1) Eosinophils # (Auto) 0.2 x10^3/uL (0.0-0.7) Basophils # (Auto) 0.0 x10^3/uL (0.0-0.2) Sodium Level 140 mmol/L (136-145) Potassium Level 3.7 mmol/L (3.5-5.1) Chloride Level 102 mmol/L (98-107) Carbon Dioxide Level 31 mmol/L (21-32) Anion Gap 7 (6-14) Blood Urea Nitrogen 12 mg/dL (8-26) Creatinine 1.0 mg/dL (0.7-1.3) Estimated GFR (Cockcroft-Gault) 89.9 Glucose Level 134 mg/dL (70-99) Calcium Level 8.9 mg/dL (8.5-10.1) Phosphorus Level 3.9 mg/dL (2.6-4.7) Magnesium Level 1.6 mg/dL (1.8-2.4) Review of Systems Review of Systems no fever, chills, sob or chest pain Comment Review of Relevant I have reviewed the following items raul (where applicable) has been applied. Labs Laboratory Tests Test 06/07/17 04:40 White Blood Count 6.1 x10^3/uL (4.0-11.0) Red Blood Count 4.72 x10^6/uL (4.30-5.70) Hemoglobin 12.6 g/dL (13.0-17.5) Hematocrit 39.6 % (39.0-53.0) Mean Corpuscular Volume 84 fL (79-100) Mean Corpuscular Hemoglobin 27 pg (25-35) Mean Corpuscular Hemoglobin Concent 32 g/dL (31-37) Red Cell Distribution Width 16.0 % (11.5-14.5) Platelet Count 108 x10^3/uL (140-400) Neutrophils (%) (Auto) 61 % (31-73) Lymphocytes (%) (Auto) 23 % (24-48) Monocytes (%) (Auto) 12 % (0-9) Eosinophils (%) (Auto) 3 % (0-3) Basophils (%) (Auto) 1 % (0-3) Neutrophils # (Auto) 3.7 x10^3uL (1.8-7.7) Lymphocytes # (Auto) 1.4 x10^3/uL (1.0-4.8) Monocytes # (Auto) 0.7 x10^3/uL (0.0-1.1) Eosinophils # (Auto) 0.2 x10^3/uL (0.0-0.7) Basophils # (Auto) 0.0 x10^3/uL (0.0-0.2) Sodium Level 140 mmol/L (136-145) Potassium Level 3.7 mmol/L (3.5-5.1) Chloride Level 102 mmol/L (98-107) Carbon Dioxide Level 31 mmol/L (21-32) Anion Gap 7 (6-14) Blood Urea Nitrogen 12 mg/dL (8-26) Creatinine 1.0 mg/dL (0.7-1.3) Estimated GFR (Cockcroft-Gault) 89.9 Glucose Level 134 mg/dL (70-99) Calcium Level 8.9 mg/dL (8.5-10.1) Phosphorus Level 3.9 mg/dL (2.6-4.7) Magnesium Level 1.6 mg/dL (1.8-2.4) Laboratory Tests Test 06/07/17 04:40 White Blood Count 6.1 x10^3/uL (4.0-11.0) Red Blood Count 4.72 x10^6/uL (4.30-5.70) Hemoglobin 12.6 g/dL (13.0-17.5) Hematocrit 39.6 % (39.0-53.0) Mean Corpuscular Volume 84 fL (79-100) Mean Corpuscular Hemoglobin 27 pg (25-35) Mean Corpuscular Hemoglobin Concent 32 g/dL (31-37) Red Cell Distribution Width 16.0 % (11.5-14.5) Platelet Count 108 x10^3/uL (140-400) Neutrophils (%) (Auto) 61 % (31-73) Lymphocytes (%) (Auto) 23 % (24-48) Monocytes (%) (Auto) 12 % (0-9) Eosinophils (%) (Auto) 3 % (0-3) Basophils (%) (Auto) 1 % (0-3) Neutrophils # (Auto) 3.7 x10^3uL (1.8-7.7) Lymphocytes # (Auto) 1.4 x10^3/uL (1.0-4.8) Monocytes # (Auto) 0.7 x10^3/uL (0.0-1.1) Eosinophils # (Auto) 0.2 x10^3/uL (0.0-0.7) Basophils # (Auto) 0.0 x10^3/uL (0.0-0.2) Sodium Level 140 mmol/L (136-145) Potassium Level 3.7 mmol/L (3.5-5.1) Chloride Level 102 mmol/L (98-107) Carbon Dioxide Level 31 mmol/L (21-32) Anion Gap 7 (6-14) Blood Urea Nitrogen 12 mg/dL (8-26) Creatinine 1.0 mg/dL (0.7-1.3) Estimated GFR (Cockcroft-Gault) 89.9 Glucose Level 134 mg/dL (70-99) Calcium Level 8.9 mg/dL (8.5-10.1) Phosphorus Level 3.9 mg/dL (2.6-4.7) Magnesium Level 1.6 mg/dL (1.8-2.4) Medications Current Medications Ondansetron HCl (Zofran) 4 mg PRN Q8HRS PRN IV NAUSEA/VOMITING Last administered on 05/29/17 02:54; Start 05/28/17 at 19:00; Stop 05/29/17 at 18:59; Status DC Acetaminophen (Tylenol) 325 mg PRN Q6HRS PRN PO ARTHRITIS Last administered on 06/03/17 21:32; Start 05/28/17 at 22:30 Albuterol Sulfate (Ventolin Neb Soln) 2.5 mg PRN QID PRN NEB ASTHMA; Start at 22:30 Furosemide (Lasix) 40 mg DAILY PO Last administered on 06/06/17 08:58; Start at 09:00 Lisinopril (Prinivil) 2.5 mg DAILY PO Last administered on 06/06/17 09:00; Start 05/29/17 at 09:00 Meclizine HCl (Antivert) 12.5 mg PRN TID PRN PO DIZZINESS; Start 05/28/17 at 22 :30 Metoprolol Tartrate (Lopressor) 50 mg BID PO Last administered on 06/06/17 21: 17; Start 05/29/17 at 09:00 Nitroglycerin (Nitrostat) 0.4 mg PRN Q5MIN PRN SL CHEST PAIN; Start 05/28/17 at 22:30 Tamsulosin HCl (Flomax) 0.8 mg HS PO Last administered on 06/06/17 21:16; Start 05/29/17 at 21:00 Tramadol HCl (Ultram) 50 mg PRN Q6HRS PRN PO MILD PAIN Last administered on 06/03 15:29; Start 05/28/17 at 22:30 Atorvastatin Calcium (Lipitor) 80 mg HS PO Last administered on 06/06/17 21:16 ; Start 05/29/17 at 21:00 Potassium Chloride (Klor-Con) 20 meq DAILYWBKFT PO Last administered on 08:47; Start 05/29/17 at 08:00 Labetalol HCl (Normodyne) 20 mg PRN Q2HR PRN IVP HYPERTENSION, SEE COMMENTS; Start 05/28/17 at 22:45; Stop 06/06/17 at 12:45; Status DC Hydralazine HCl (Apresoline) 10 mg PRN Q4HRS PRN IVP ELEVATED BP, SEE COMMENTS ; Start 05/28/17 at 22:45 Fentanyl Citrate (Fentanyl 2ml Vial) 50 mcg 1X ONCE IM Last administered on 07:53; Start 05/29/17 at 07:45; Stop 05/29/17 at 07:46; Status DC Lidocaine HCl (Lidocaine HCl 2% Abboject) 100 mg STK-MED ONCE .ROUTE ; Start 05/29/17 at 07:56; Stop 05/29/17 at 07:57; Status DC Lidocaine HCl (Lidocaine HCl 2% Abboject) 100 mg 1X ONCE IV Last administered on 05/29/17 08:01; Start 05/29/17 at 08:00; Stop 05/29/17 at 08:01; Status DC Famotidine (Pepcid) 20 mg 1X ONCE IVP Last administered on 05/29/17 11:19; Start 05/29/17 at 11:00; Stop 05/29/17 at 11:02; Status DC Famotidine (Pepcid) 20 mg BID IVP Last administered on 06/05/17 09:05; Start at 21:00; Stop 06/05/17 at 15:05; Status DC Cefazolin Sodium 1 gm/Sodium Chloride 50 ml @ 100 mls/hr Q8HRS IV Last administered on 06/04/17 05:35; Start 05/29/17 at 14:00; Stop 06/04/17 at 13:43; Status DC Potassium Chloride/Dextrose/ Sod Cl 1,000 ml @ 100 mls/hr Q10H IV Last administered on 06/06/17 06:16; Start 05/30/17 at 10:30; Stop 06/06/17 at 10:24; Status DC Sodium Chloride 500 ml @ 500 mls/hr 1X ONCE IV Last administered on 05/30/17 10:44; Start 05/30/17 at 10:30; Stop 05/30/17 at 11:29; Status DC Ondansetron HCl (Zofran) 4 mg PRN Q6HRS PRN IV NAUSEA/VOMITING Last administered on 05/30/17 18:46; Start 05/30/17 at 18:45 Haloperidol Lactate (Haldol) 2 mg 1X ONCE IVP Last administered on 06/01/17 03 :48; Start 06/01/17 at 04:00; Stop 06/01/17 at 04:01; Status DC Haloperidol Lactate (Haldol) 5 mg 1X ONCE IVP Last administered on 06/01/17 04 :23; Start 06/01/17 at 04:30; Stop 06/01/17 at 04:31; Status DC Haloperidol Lactate (Haldol) 5 mg PRN Q4HRS PRN IVP ANXIETY / AGITATION Last administered on 06/05/17 18:04; Start 06/01/17 at 04:30 Fentanyl Citrate (Fentanyl 2ml Vial) 25 mcg PRN Q5MIN PRN IV MILD PAIN Last administered on 06/04/17 11:39; Start 06/04/17 at 07:00; Stop 06/04/17 at 18:00; Status DC Fentanyl Citrate (Fentanyl 2ml Vial) 50 mcg PRN Q5MIN PRN IV MODERATE PAIN; Start 06/04/17 at 07:00; Stop 06/04/17 at 18:00; Status DC Morphine Sulfate 1 mg PRN Q10MIN PRN IV SEVERE PAIN; Start 06/04/17 at 07:00; Stop 06/04/17 at 18:00; Status DC Ringer's Solution 1,000 ml @ 30 mls/hr Q24H IV Last administered on 06/04/17 11:58; Start 06/04/17 at 07:00; Stop 06/04/17 at 18:59; Status DC Lidocaine HCl 2 ml PRN 1X PRN ID PRIOR TO IV START; Start 06/04/17 at 07:00; Stop 06/04/17 at 18:00; Status DC Hydromorphone HCl (Dilaudid) 0.5 mg PRN Q10MIN PRN IV SEV PAIN, Second choice; Start 06/04/17 at 07:00; Stop 06/04/17 at 18:00; Status DC Prochlorperazine Edisylate (Compazine) 5 mg PACU PRN PRN IV NAUSEA, MRX1; Start 06/04/17 at 07:00; Stop 06/04/17 at 18:00; Status DC Haloperidol Lactate (Haldol) 5 mg 1X ONCE IVP Last administered on 06/02/17 01 :31; Start 06/02/17 at 01:30; Stop 06/02/17 at 01:31; Status DC Lorazepam (Ativan) 1 mg 1X ONCE IV Last administered on 06/02/17 01:31; Start 06/02/17 at 01:30; Stop 06/02/17 at 01:31; Status DC Bacitracin 52924 unit/Sodium Chloride 1,000 ml @ 1,000 mls/hr 1X PERIOP ONCE IRR Last administered on 06/04/17 09:46; Start 06/04/17 at 06:00; Stop 06/04/17 at 06:59; Status DC Lidocaine HCl (Lidocaine Pf 2% Vial) 5 ml STK-MED ONCE .ROUTE ; Start 06/04/17 at 07:29; Stop 06/04/17 at 07:30; Status DC Propofol 20 ml @ As Directed STK-MED ONCE IV ; Start 06/04/17 at 07:29; Stop 06/04 at 07:30; Status DC Fentanyl Citrate (Fentanyl 2ml Vial) 100 mcg STK-MED ONCE .ROUTE ; Start at 07:29; Stop 06/04/17 at 07:30; Status DC Rocuronium [place] (Zemuron) 100 mg STK-MED ONCE .ROUTE ; Start 06/04/17 at 07:32 ; Stop 06/04/17 at 07:33; Status DC Bupivacaine HCl/ Epinephrine Bitart (Sensorcain-Mpf Epi 0.5%-1:102654) 30 ml STK -MED ONCE .ROUTE ; Start 06/04/17 at 07:46; Stop 06/04/17 at 07:47; Status DC Gelatin (Gelfoam Size 100) 1 each STK-MED ONCE .ROUTE ; Start 06/04/17 at 07:46 ; Stop 06/04/17 at 07:47; Status DC Thrombin 20,000 unit STK-MED ONCE TP ; Start 06/04/17 at 07:46; Stop 06/04/17 at 07:47; Status DC Bupivacaine HCl/ Epinephrine Bitart (Sensorcain-Mpf Epi 0.5%-1:787709) 30 ml STK -MED ONCE .ROUTE Last administered on 06/04/17t 09:46; Start 06/04/17 at 08:09; Stop 06/04/17 at 08:10; Status DC Lidocaine HCl 20 ml STK-MED ONCE .ROUTE ; Start 06/04/17 at 08:09; Stop 06/04/17 at 08:10; Status DC Cefazolin Sodium 50 ml @ As Directed STK-MED ONCE IV ; Start 06/04/17 at 08:58; Stop 06/04/17 at 13:43; Status DC Dexamethasone Sodium Phosphate (Decadron) 20 mg STK-MED ONCE .ROUTE ; Start 06/04 at 08:59; Stop 06/04/17 at 09:00; Status DC Desflurane (Suprane) 60 ml STK-MED ONCE IH ; Start 06/04/17 at 08:59; Stop at 09:00; Status DC Ephedrine Sulfate (Akovaz) 50 mg STK-MED ONCE .ROUTE ; Start 06/04/17 at 09:12; Stop 06/04/17 at 09:13; Status DC Phenylephrine HCl (Percy-Synephrine Inj) 10 mg STK-MED ONCE .ROUTE ; Start at 09:25; Stop 06/04/17 at 09:26; Status DC Sodium Chloride (Sodium Chloride) 50 ml STK-MED ONCE IJ ; Start 06/04/17 at 09:25 ; Stop 06/04/17 at 09:26; Status DC Phenylephrine HCl (Percy-Synephrine Inj) 10 mg STK-MED ONCE .ROUTE ; Start at 09:44; Stop 06/04/17 at 09:45; Status DC Phenylephrine HCl (Percy-Synephrine Inj) 10 mg STK-MED ONCE .ROUTE ; Start at 09:44; Stop 06/04/17 at 09:45; Status DC Ondansetron HCl (Zofran) 4 mg STK-MED ONCE .ROUTE ; Start 06/04/17 at 09:56; Stop 06/04/17 at 09:57; Status DC Neostigmine Methylsulfate (Bloxiverz) 10 mg STK-MED ONCE .ROUTE ; Start 06/04/17 at 09:56; Stop 06/04/17 at 09:57; Status DC Glycopyrrolate (Robinul) 1 mg STK-MED ONCE .ROUTE ; Start 06/04/17 at 09:56; Stop 06/04/17 at 09:57; Status DC Fentanyl Citrate (Fentanyl 2ml Vial) 50 mcg PRN Q1HR PRN IV SEVERE PAIN; Start 06/04/17 at 11:15 Fentanyl Citrate (Fentanyl 2ml Vial) 25 mcg PRN Q1HR PRN IV SEVERE PAIN Last administered on 06/05/17t 18:05; Start 06/04/17 at 11:15 Oxycodone/ Acetaminophen (Percocet 5/325) 1 tab PRN Q4HRS PRN PO MODERATE PAIN ; Start 06/04/17 at 11:15 Oxycodone/ Acetaminophen (Percocet 5/325) 2 tab PRN Q4HRS PRN PO SEVERE PAIN Last administered on 06/04/17 14:23; Start 06/04/17 at 11:15 Famotidine (Pepcid) 20 mg BID PO Last administered on 06/07/17 08:46; Start at 21:00 Magnesium Sulfate/ Dextrose 50 ml @ 25 mls/hr 1X ONCE IV Last administered on 06/07/17 10:08; Start 06/07/17 at 09:00; Stop 06/07/17 at 10:59; Status DC Active Scripts Active Aspirin Ec (Aspirin) 81 Mg Tablet.dr 162 Mg PO DAILYWBKFT 30 Days Lisinopril 2.5 Mg Tablet 2.5 Mg PO DAILY Furosemide 40 Mg Tablet 40 Mg PO DAILY Reported Plavix (Clopidogrel Bisulfate) 75 Mg Tablet 1 Tab PO DAILY Metoprolol Tartrate 50 Mg Tablet 1 Tab PO BID Potassium Chloride 20 Meq Tablet.er 20 Meq PO DAILY Proair Respiclick (Albuterol Sulfate) 90 Mcg Aer.pow.ba 2 Puff IH TWICE WEEKLY PRN Meclizine Hcl 12.5 Mg Tablet 1 Tab PO TID PRN NITROGLYCERIN SubLingual (Nitroglycerin) 0.4 Mg Tab.subl 0.4 Mg SL PRN Q5MIN PRN Flomax (Tamsulosin Hcl) 0.4 Mg Cap.er.24h 0.8 Mg PO HS Tramadol Hcl 50 Mg Tablet 50 Mg PO Q6H PRN Atorvastatin Calcium 80 Mg Tablet 80 Mg PO HS Albuterol Sulfate Neb Soln (Albuterol Sulfate) 2.5 Mg/3 Ml Vial.neb 2.5 Mg NEB QID PRN Tylenol (Acetaminophen) 325 Mg Tablet 1-2 Tab PO Q6HRS PRN Vitals/I & O Vital Sign - Last 24 Hours 06/06/17 06/06/17 06/06/17 06/06/17 15:00 19:00 20:00 21:17 Temp 97.5 97.5 97.5 97.5 Pulse 69 65 65 Resp 18 18 B/P (MAP) 99/73 (82) 104/69 (81) 104/69 Pulse Ox 99 98 O2 Delivery Room Air Room Air Room Air 06/06/17 06/07/17 06/07/17 06/07/17 23:00 03:00 07:00 07:20 Temp 97.7 97.5 97.9 97.7 97.5 97.9 Pulse 56 92 50 Resp 18 18 18 B/P (MAP) 117/67 (84) 114/64 (81) 92/65 (74) Pulse Ox 95 93 95 O2 Delivery Room Air Room Air Room Air Room Air 06/07/17 06/07/17 06/07/17 08:45 08:45 11:00 Temp 97.9 97.9 Pulse 50 50 57 Resp 18 B/P (MAP) 92/65 92/65 95/65 (75) Pulse Ox 96 O2 Delivery Room Air Intake and Output 06/06/17 06/06/17 06/07/17 15:00 23:00 07:00 Intake Total 935 ml 250 ml Output Total 200 ml 850 ml Balance 735 ml -600 ml TAE COOPER MD Jun 07, 2017 12:31
[2017-06-07 15:00] VITALS: BP 104/84
--- NOTE | 2017-06-07 16:20 | PDOC ---
SUBJECTIVE Subjective Late entry. Pt seen and examined 06/07/17 approx 12:30PM. Denies acute complaints. OBJECTIVE Vital Signs Vital Signs Date Time Temp Pulse Resp B/P (MAP) Pulse Ox O2 Delivery O2 Flow Rate FiO2 06/07/17 15:00 98.5 49 18 104/84 (91) 93 Room Air 98.5 06/07/17 11:00 97.9 57 18 95/65 (75) 96 Room Air 97.9 06/07/17 08:45 50 92/65 06/07/17 08:45 50 92/65 06/07/17 07:20 Room Air 06/07/17 07:00 97.9 50 18 92/65 (74) 95 Room Air 97.9 06/07/17 03:00 97.5 92 18 114/64 (81) 93 Room Air 97.5 06/06/17 23:00 97.7 56 18 117/67 (84) 95 Room Air 97.7 06/06/17 21:17 65 104/69 06/06/17 20:00 Room Air 06/06/17 19:00 97.5 65 18 104/69 (81) 98 Room Air 97.5 I & O Intake and Output 06/07/17 07:00 Intake Total 1185 ml Output Total 1050 ml Balance 135 ml Intake Oral 450 ml IV Total 735 ml Output Urine Total 1050 ml PHYSICAL EXAM Physical Exam AA, NAD, speech fluent, POWERS 5/5, c/d/i ASSESSMENT/PLAN Assessment/Plan 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 Cagle, neurosurgery, 2 weeks post-op for staple removal and reassessment [phone] -recommend repeat CT head without contrast just prior to follow-up Problems: COMMENT Lab Laboratory Tests Test 06/07/17 04:40 White Blood Count 6.1 x10^3/uL (4.0-11.0) Red Blood Count 4.72 x10^6/uL (4.30-5.70) Hemoglobin 12.6 g/dL (13.0-17.5) Hematocrit 39.6 % (39.0-53.0) Mean Corpuscular Volume 84 fL (79-100) Mean Corpuscular Hemoglobin 27 pg (25-35) Mean Corpuscular Hemoglobin Concent 32 g/dL (31-37) Red Cell Distribution Width 16.0 % (11.5-14.5) Platelet Count 108 x10^3/uL (140-400) Neutrophils (%) (Auto) 61 % (31-73) Lymphocytes (%) (Auto) 23 % (24-48) Monocytes (%) (Auto) 12 % (0-9) Eosinophils (%) (Auto) 3 % (0-3) Basophils (%) (Auto) 1 % (0-3) Neutrophils # (Auto) 3.7 x10^3uL (1.8-7.7) Lymphocytes # (Auto) 1.4 x10^3/uL (1.0-4.8) Monocytes # (Auto) 0.7 x10^3/uL (0.0-1.1) Eosinophils # (Auto) 0.2 x10^3/uL (0.0-0.7) Basophils # (Auto) 0.0 x10^3/uL (0.0-0.2) Sodium Level 140 mmol/L (136-145) Potassium Level 3.7 mmol/L (3.5-5.1) Chloride Level 102 mmol/L (98-107) Carbon Dioxide Level 31 mmol/L (21-32) Anion Gap 7 (6-14) Blood Urea Nitrogen 12 mg/dL (8-26) Creatinine 1.0 mg/dL (0.7-1.3) Estimated GFR (Cockcroft-Gault) 89.9 Glucose Level 134 mg/dL (70-99) Calcium Level 8.9 mg/dL (8.5-10.1) Phosphorus Level 3.9 mg/dL (2.6-4.7) Magnesium Level 1.6 mg/dL (1.8-2.4) ÁNGEL CAGLE MD Jun 07, 2017 16:20
[2017-06-07 19:00] VITALS: BP 110/79
[2017-06-07] MEDS: TAMSULOSIN 0.4 MG CAP.ER.24H. PO SCH (19:59)
[2017-06-07] MEDS: ATORVASTATIN CALCIUM 40 MG TABLET. PO SCH (20:00)
[2017-06-07 23:00] VITALS: BP 104/76
[2017-06-08 03:00] VITALS: BP 105/7
[2017-06-08 07:00] VITALS: BP 103/66
[2017-06-08 08:05] LABS: BASO % 1 % (0-3); EOS % 2 % (0-3); HEMATOCRIT 41.9 % (39.0-53.0); HEMOGLOBIN 13.3 g/dL (13.0-17.5); LYMPH # 1.4 x10^3/uL (1.0-4.8); LYMPH % 24 % (24-48); MEAN CORPUSCULAR HEMOGLOBIN 27 pg (25-35); MEAN CORPUSCULAR HGB CONC 32 g/dL (31-37); MEAN CORPUSCULAR VOLUME 84 fL (79-100); MONO % 11 % (0-9); NEUT % 62 % (31-73); PLATELET COUNT 130 x10^3/uL (140-400); RED BLOOD COUNT 4.99 x10^6/uL (4.30-5.70); RED CELL DISTRIBUTION WIDTH 15.8 % (11.5-14.5); WHITE BLOOD COUNT 5.9 x10^3/uL (4.0-11.0)
[2017-06-08 08:26] LABS: CALCIUM 9.2 mg/dL (8.5-10.1); CREATININE 0.8 mg/dL (0.7-1.3); GFR 116.3; MAGNESIUM 1.9 mg/dL (1.8-2.4); PHOSPHORUS 3.3 mg/dL (2.6-4.7)
[2017-06-08] MEDS: FAMOTIDINE 20 MG TABLET. PO SCH (08:45)
[2017-06-08] MEDS: LISINOPRIL 2.5 MG TABLET PO SCH (08:45)
[2017-06-08] MEDS: POTASSIUM CHLORIDE 20 MEQ TABLET.ER. PO SCH (08:45)
[2017-06-08] MEDS: FUROSEMIDE 40 MG TABLET. PO SCH (08:45)
[2017-06-08] MEDS: METOPROLOL TART IMMED RELEASE 50 MG TABLET. PO SCH (08:46)
[2017-06-08 10:38] LABS: PLT ESTIMATE DECREASED (ADEQUATE)
--- NOTE | 2017-06-08 10:47 | PDOC ---
SUBJECTIVE Subjective Denies acute complaints. OBJECTIVE Vital Signs Vital Signs Date Time Temp Pulse Resp B/P (MAP) Pulse Ox O2 Delivery O2 Flow Rate FiO2 06/08/17 08:46 94 103/66 06/08/17 08:45 94 103/66 06/08/17 07:20 Room Air 06/08/17 07:00 97.5 94 20 103/66 (78) 97 Room Air 97.5 06/08/17 03:00 97.7 87 20 105/7 (39) 97 Room Air 97.7 06/07/17 23:00 97.7 88 18 104/76 (85) 99 Room Air 97.7 06/07/17 19:59 101 110/79 06/07/17 19:50 Room Air 06/07/17 19:00 97.5 101 18 110/79 (89) 95 Room Air 97.5 06/07/17 15:00 98.5 49 18 104/84 (91) 93 Room Air 98.5 06/07/17 11:00 97.9 57 18 95/65 (75) 96 Room Air 97.9 I & O Intake and Output 06/08/17 07:00 Output Total 650 ml Balance -650 ml Output Urine Total 650 ml # Voids 4 PHYSICAL EXAM Physical Exam AA, NAD, POWERS, c/d/i ASSESSMENT/PLAN Assessment/Plan s/p HOG STICKER shunt -continues to be stable -still okay to d/c from NS standpoint if otherwise meets criteria -see NS notes for d/c recs (documented yesterday and Sunday) Problems: COMMENT Lab Laboratory Tests Test 06/08/17 07:40 White Blood Count 5.9 x10^3/uL (4.0-11.0) Red Blood Count 4.99 x10^6/uL (4.30-5.70) Hemoglobin 13.3 g/dL (13.0-17.5) Hematocrit 41.9 % (39.0-53.0) Mean Corpuscular Volume 84 fL (79-100) Mean Corpuscular Hemoglobin 27 pg (25-35) Mean Corpuscular Hemoglobin Concent 32 g/dL (31-37) Red Cell Distribution Width 15.8 % (11.5-14.5) Platelet Count 130 x10^3/uL (140-400) Neutrophils (%) (Auto) 62 % (31-73) Lymphocytes (%) (Auto) 24 % (24-48) Monocytes (%) (Auto) 11 % (0-9) Eosinophils (%) (Auto) 2 % (0-3) Basophils (%) (Auto) 1 % (0-3) Neutrophils # (Auto) 3.7 x10^3uL (1.8-7.7) Lymphocytes # (Auto) 1.4 x10^3/uL (1.0-4.8) Monocytes # (Auto) 0.7 x10^3/uL (0.0-1.1) Eosinophils # (Auto) 0.1 x10^3/uL (0.0-0.7) Basophils # (Auto) 0.0 x10^3/uL (0.0-0.2) Platelet Estimate Decreased (ADEQUATE) Giant Platelets Mod Sodium Level 140 mmol/L (136-145) Potassium Level 4.0 mmol/L (3.5-5.1) Chloride Level 102 mmol/L (98-107) Carbon Dioxide Level 28 mmol/L (21-32) Anion Gap 10 (6-14) Blood Urea Nitrogen 16 mg/dL (8-26) Creatinine 0.8 mg/dL (0.7-1.3) Estimated GFR (Cockcroft-Gault) 116.3 Glucose Level 129 mg/dL (70-99) Calcium Level 9.2 mg/dL (8.5-10.1) Phosphorus Level 3.3 mg/dL (2.6-4.7) Magnesium Level 1.9 mg/dL (1.8-2.4) ÁNGEL CAGLE MD Jun 08, 2017 10:46
[2017-06-08 11:00] VITALS: BP 100/73
--- NOTE | 2017-06-08 12:42 | PDOC3 ---
Discharge Summary [facility] Date of Admission: May 28, 2017 Discharge Date: Jun 08, 2017 Admitting Diagnosis Worsening of cerebellar hemorrhage post right frontal ventricle drainage and HUC OB shunt Cerebral edema Hydrocephalus h/o CAD with PCI Weakness/debility Poor PO intake Dehydration hypomagnesemia Problems: CONSULTS neuro sx sx Procedures right frontal ventricle drainage and HUC OB shunt Brief Hospital Course Mr. Dumont is a 66 old M, from skilled nursing , was recently dced from here for cerebellar hemarrhage. Pt was sent back with more headache, and ct showed worsening hemmorhage and cerebral edema. pt got right frontal ventricle drainage by neurosx, then HUC OB shunt done. pt now feels ok, no neurologic deficit except unsteady gait. dc back to [facility] , cont asa, hold plavix x1 week, fu with dr. Munson in 2 weeks, repeat CT before visit. dc time 40min. General: Alert, Oriented X3, Cooperative, No acute distress, Other Heart: Regular rate, No murmurs Lungs: Other Abdomen: Normal bowel sounds, Soft Extremities: No clubbing, No edema, Normal pulses Skin: No rashes, No significant lesion. head wound clean Patient History: Patient's father is Patient's mother is Unknown G8 SON, Onset:Unknown Problems: Disposition skilled nursing CONDITION AT DISCHARGE: Improved Diet cardiac Scheduled Aspirin (Aspirin Ec), 162 MG PO [id number] Atorvastatin Calcium (Atorvastatin Calcium), 80 MG PO HS, (Reported) Furosemide (Furosemide), 40 MG PO DAILY Lisinopril (Lisinopril), 2.5 MG PO DAILY Metoprolol Tartrate (Metoprolol Tartrate), 1 TAB PO BID, (Reported) Potassium Chloride (Potassium Chloride), 20 MEQ PO DAILY, (Reported) Tamsulosin Hcl (Flomax), 0.8 MG PO HS, (Reported) Scheduled PRN Acetaminophen (Tylenol), 1-2 TAB PO Q6HRS PRN for ARTHRITIS, (Reported) Albuterol Sulfate (Albuterol Sulfate Neb Soln), 2.5 MG NEB QID PRN for ASTHMA, ( Reported) Albuterol Sulfate (Proair Respiclick), 2 PUFF IH TWICE WEEKLY PRN for SHORTNESS OF BREATH, (Reported) Meclizine Hcl (Meclizine Hcl), 1 TAB PO TID PRN for DIZZINESS, (Reported) Nitroglycerin (NITROGLYCERIN SubLingual), 0.4 MG SL PRN Q5MIN PRN for CHEST PAIN , (Reported) Tramadol Hcl (Tramadol Hcl), 50 MG PO Q6H PRN for PAIN, (Reported) Discontinued Medications Clopidogrel Bisulfate (Plavix), 1 TAB PO DAILY, (Reported) Follow Up dr. Munson in 2 weeks TAE COOPER MD Jun 08, 2017 12:42
== END 2017-06-08 13:05 | disposition home or self-care (01) | DRG 23 ==
LOC: ER 16:41 → EEVIPCON 16:41 → 1 WEST ICU 18:20 → 4 NORTH 06-05 13:00
PROVIDERS: ADMIT Internal Medicine; ATTEND Internal Medicine
PROC: 009600Z Drainage of Cerebral Ventricle with Drainage Device, Open Approach (ICD-10-PCS; principal; 2017-05-30)
PROC: 00160J6 Bypass Cerebral Ventricle to Peritoneal Cavity with Synthetic Substitute, Open Approach (ICD-10-PCS; 2017-06-04)
PROC: 0NP Head and Facial Bones, Removal (ICD-10-PCS; 2017-06-04 08:30)
DX: I61.4 Nontraumatic intracerebral hemorrhage in cerebellum (principal); G93.6 Cerebral edema; G91.1 Obstructive hydrocephalus; E78.5 Hyperlipidemia, unspecified; J44.9 Chronic obstructive pulmonary disease, unspecified; K57.90 Diverticulosis of intestine, part unspecified, without perforation or abscess without bleeding; M79.7 Fibromyalgia; N40.0 Benign prostatic hyperplasia without lower urinary tract symptoms; I25.10 Atherosclerotic heart disease of native coronary artery without angina pectoris; E78.00 Pure hypercholesterolemia, unspecified; I11.0 Hypertensive heart disease with heart failure; I50.9 Heart failure, unspecified; E86.0 Dehydration; E83.42 Hypomagnesemia; G93.89 Other specified disorders of brain; R45.1 Restlessness and agitation; Z79.01 Long term (current) use of anticoagulants; Z86.73 Personal history of transient ischemic attack (TIA), and cerebral infarction without residual deficits; I25.2 Old myocardial infarction; Z95.5 Presence of coronary angioplasty implant and graft
CPT/HCPCS: 36415; 36569; 70250; 70450; 71010; 71020; 72040; 74020; 80048; 80053; 81001; 83735; 84100; 84484; 85007; 85027; 85610; 85730; 87641; 93005; 99285; J0690; J1100; J1630; J2001; J2060; J2405; J2704; J2710; J3010; J3490; J7030; J7040; J7060; J7120; S0028; 97110; 97116; 97530; 97535